=== PATIENT | female | born 1955 | race Caucasian/White ===

== ENCOUNTER 2022-06-07 16:10 | Emergency (ER) | payer OTHER, SELFPAY ==
[2022-06-07 16:17] VITALS: BP 135/78; PULSE 90; RESP 20; TEMP 36.3; O2SAT 97; BMI 28.3
--- NOTE | 2022-06-07 16:51 | ED_ITS ---
HPI - General Adult General Chief complaint: Diarrhea Stated complaint: Diarhea for past 3 months, weakness, passing out Time Seen by Provider: 06/07/22 16:25 History of Present Illness HPI narrative: 66-year-old woman presenting to the emergency department on advice primary care provider does not feel she can wait through the weekend to be rehydrated I believe. Has had rather prolonged recovery following abdominal surgery which did include prolonged and complicated surgery with did involve some repair of hernias. Ultimately convalescing at transitional care facility. About 3 weeks into that she says she started to have diarrhea. This has been going on now about 3 months. She describes green watery stools 3-5 or more a day. Mucousy. No fever. Not noted whether not there is blood. She does have a good deal of abdominal pain. Sometimes relieve a little bit with stool. It is early afternoon and admittedly she has not had any bowel movement yet today. She has been treating herself with loperamide. Was trying to get that when she was in the transitional care as well but she reports that being restricted. Apparently roommate with some diarrheal symptoms but she maintains that she did not come in contact with anything. No other ill exposures. Not short of breath. Last week getting up from lying or seated position apparently did pass out. Was with daughter. Apparently did have a bump on her head. And injured her left upper arm. Has continued to be generally weak. Often in a wheelchair. She is noted to have made across our emergency department aided by walker. Looks like there is a diagnosis of irritable bowel. Related Data Home Medications Medication Instructions Recorded Confirmed albuterol 90 mcg/actuation aerosol 2 spray inhalation Q4-5H 10/02/21 06/07/22 inhaler cefuroxime axetil 500 mg tablet 500 mg PO BID 10/02/21 10/02/21 divalproex 500 mg tablet,delayed 500 mg PO HS 10/02/21 06/07/22 release fluticasone propionate 220 2 puff inhalation BID 10/02/21 06/07/22 mcg/actuation HFA aerosol inhaler loperamide 2 mg capsule 4 mg PO .Daily as needed PRN 10/02/21 06/07/22 meclizine 25 mg tablet 25 mg PO BID PRN 10/02/21 06/07/22 montelukast 10 mg tablet 10 mg PO .Bedtime 10/02/21 06/07/22 trazodone 50 mg tablet 50 mg PO .Bedtime as needed PRN 10/02/21 06/07/22 venlafaxine 150 mg 150 mg PO DAILY 10/02/21 06/07/22 capsule,extended release 24 hr venlafaxine 75 mg capsule,extended 75 mg PO DAILY 10/02/21 06/07/22 release 24 hr albuterol sulfate 90 mcg/actuation 1 puff inhalation Q4H PRN 06/07/22 06/07/22 aerosol inhaler cevimeline 30 mg capsule 1 cap PO BID 06/07/22 06/07/22 dextroamphetamine-amphetamine 10 1 tab PO DAILY 06/07/22 06/07/22 mg tablet dextroamphetamine-amphetamine ER 1 cap PO DAILY 06/07/22 06/07/22 10 mg 24hr capsule,extend release divalproex 125 mg capsule,delayed 500 mg PO QID 06/07/22 06/07/22 release sprinkle doxepin 10 mg capsule 10 mg PO QPM 06/07/22 06/07/22 gabapentin 400 mg capsule 400 mg PO 3XD 06/07/22 06/07/22 guanfacine 1 mg tablet 1 mg PO QPM 06/07/22 06/07/22 lorazepam 0.5 mg tablet 0.5 mg PO DAILY PRN 06/07/22 06/07/22 trazodone 150 mg tablet 75 mg PO QPM 06/07/22 06/07/22 Allergies Allergy/AdvReac Type Severity Reaction Status Date / Time nitrofurantoin Allergy Unknown Verified 10/08/21 15:10 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 Allergy Severe Anaphylaxis Uncoded 10/08/21 15:10 CONTRAST Allergy Intermediate Rash, Uncoded 10/08/21 15:10 short of breath Sulfa Antibiotics Allergy Mild Rash Uncoded 10/08/21 15:10 Ioxaglate sodium Allergy Unknown Uncoded 10/08/21 15:10 ivp dye Allergy Unknown Unknown Uncoded 03/06/22 14:25 sulfa Allergy Unknown Unknown Uncoded 03/06/22 14:25 Review of Systems Status of ROS: Reports: 10 or more systems reviewed and unremarkable except as noted in History and below [facility] Medical History History of major depression History of prediabetes Surgical History History of bladder suspension procedure (2014) History of cholecystectomy (1983) History of loop recorder History of partial thyroidectomy (1999) Family History Mother Alcoholism Social History Narrative: Nonsmoker. Does not exercise. . 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 Smoking Status: Never smoker Do you use any of these nicotine containing products: None Second hand tobacco smoke exposure: No How often do you have a drink containing alcohol: never AUDIT-C Alcohol total score: 0 Non-prescribed substance use: denies use Exam Narrative: Exam Narrative: Pleasant. Of good energy. Has short dark hair dyed with splotches of [place] green. Breathing easily. Cranial nerves 2-12 intact. Abdomen is soft and while not terribly tender is mildly uncomfortable palpation in the mid abdomen. Normoactive bowel sounds are present present. Surgical scars are evident. Moving all extremities without difficulty. Trace lower extremity dependent edema. Lungs are clear. Heart with regular rate and rhythm. Skin is warm and dry without rash. Oropharynx is moist. Const: Vital Signs, click to edit/add: Vital Signs - 24 hr 06/07/22 16:17 06/07/22 17:25 06/07/22 19:17 Temperature 97.3 F L Pulse Rate [Pulse Oximeter] 90 70 Pulse Rate [orthos tatic lying] 66 Pulse Rate [orthos tatic sitting] 66 Pulse Rate [orthos tatic standing] 91 Respiratory Rate 20 16 Blood Pressure [Le ft Upper Arm] 135/78 125/64 Blood Pressure [or thostatic lying Le ft Arm] 122/73 Blood Pressure [or thostatic sitting] 111/77 Blood Pressure [or thostatic standing ] 101/77 Pulse Oximetry 97 98 Oxygen Delivery Me thod Room Air Room Air Documenting provider has reviewed patient's vital signs: yes Course Vital Signs Vital signs: Initial Vital Signs Temperature 97.3 F L 06/07/22 16:17 Temperature Source Temporal Artery Scan 06/07/22 16:17 Pulse Rate 90 06/07/22 16:17 Respiratory Rate 20 06/07/22 16:17 Blood Pressure 135/78 06/07/22 16:17 Blood Pressure Mean 97 06/07/22 16:17 Pulse Oximetry 97 06/07/22 16:17 Oxygen Delivery Method 06/07/22 16:17 Vital Signs Temperature 97.3 F L 06/07/22 16:17 Pulse Rate 90 06/07/22 16:17 Respiratory Rate 20 06/07/22 16:17 Blood Pressure 135/78 06/07/22 16:17 Pulse Oximetry 97 06/07/22 16:17 Oxygen Delivery Method 06/07/22 16:17 Temperature 97.3 F L 06/07/22 16:17 Pulse Rate 66 06/07/22 19:17 Respiratory Rate 16 06/07/22 17:25 Blood Pressure 122/73 06/07/22 19:17 Pulse Oximetry 98 06/07/22 17:25 Oxygen Delivery Method 06/07/22 17:25 Medical Decision Making MDM Narrative Medical decision making narrative: Initiated on normal saline fluid bolus. Given Zofran for nausea. Certainly could be weak from infection/sepsis. Does not appear to be so and quite alert here. I think more the matter is fluid volume, dehydration. Will be doing labs and screening stool for C diff. Orthostatics are positive with a 30 point increase in pulse but pressures remain pretty steady. She reports feeling lightheaded. White count is normal. Labs generally reassuring. Urinalysis with trace ketones. 2 L of fluids. Anticipating departure shortly. Has not yet had a bowel movement in the emergency department. See patient discharged Lab Data Lab results reviewed: Yes I reviewed the patient's lab results Labs: Lab Results 06/07/22 06/07/22 06/07/22 Range/Units 17:03 17:03 17:05 WBC 5.87 (4.50-11.00) K/uL RBC 4.11 (4.00-5.20) m/uL Hgb 12.7 (12.0-16.0) gm/dL Hct 38.0 (33.0-51.0) % MCV 93 (80-100) fL MCH 31 (26-34) pg MCHC 33 (32-36) gm/dL RDW Coeff of Quirino 12.0 (11.5-15.5) % Plt Count 235 (140-440) K/uL Neut % (Auto) 61.8 (42.0-72.0) % Lymph % (Auto) 28.8 (20-44) % [place] % (Auto) 7.7 (0.0-11.0) % Eos % (Auto) 0.9 (0.0-7.0) % Baso % (Auto) 0.5 (0.0-3.0) % Neut # (Auto) 3.63 (1.7-7.0) K/uL Lymph # (Auto) 1.69 (0.90-2.90) K/uL [place] # (Auto) 0.50 (0.00-0.90) K/UL Eos # (Auto) 0.05 (0.00-0.50) K/uL Baso # (Auto) 0.03 (0.00-0.30) K/uL Sodium 137 (135-149) mmol/L Potassium 3.6 (3.6-5.1) mmol/L Chloride 102 (96-114) mmol/L Carbon Dioxide 29 (20-32) mmol/L BUN 15 (7-30) mg/dL Creatinine 0.7 (0.5-1.5) mg/dL Estimated Creat Clear 44.95 Estimated GFR 97 ml/min Glucose 91 (60-115) mg/dL Calcium 9.0 (8.4-10.6) mg/dL Total Bilirubin 0.7 (0.1-1.5) mg/dL Direct Bilirubin 0.1 (0.0-0.5) mg/dL AST 23 (12-35) U/L ALT 22 (4-35) U/L Alkaline Phosphatase 64 (40-150) U/L C-Reactive Protein 0.5 (0.5-1.0) mg/dL Total Protein 7.2 (6.0-8.3) g/dL Albumin 4.2 (3.3-5.0) g/dL Urine Color (Yellow) Urine Appearance (Clear) Urine pH (5.0-8.5) Ur Specific [place] (1.000-1.030) Urine Protein (Negative) Urine Glucose (UA) (Negative) Urine Ketones (Negative) Urine Blood (Negative) Urine Nitrite (Negative) Urine Bilirubin (Negative) Urine Urobilinogen (0.2-1.0) Ur Leukocyte Esterase (Negative) Urine RBC (0-2) Urine WBC (0-5) Ur Squamous Epith Cells (None-Few) Urine Bacteria (None) SARS-CoV-2 (PCR) Negative SARS-CoV-2 (Negative) 06/07/22 Range/Units 18:30 WBC (4.50-11.00) K/uL RBC (4.00-5.20) m/uL Hgb (12.0-16.0) gm/dL Hct (33.0-51.0) % MCV (80-100) fL MCH (26-34) pg MCHC (32-36) gm/dL RDW Coeff of Quirino (11.5-15.5) % Plt Count (140-440) K/uL Neut % (Auto) (42.0-72.0) % Lymph % (Auto) (20-44) % [place] % (Auto) (0.0-11.0) % Eos % (Auto) (0.0-7.0) % Baso % (Auto) (0.0-3.0) % Neut # (Auto) (1.7-7.0) K/uL Lymph # (Auto) (0.90-2.90) K/uL [place] # (Auto) (0.00-0.90) K/UL Eos # (Auto) (0.00-0.50) K/uL Baso # (Auto) (0.00-0.30) K/uL Sodium (135-149) mmol/L Potassium (3.6-5.1) mmol/L Chloride (96-114) mmol/L Carbon Dioxide (20-32) mmol/L BUN (7-30) mg/dL Creatinine (0.5-1.5) mg/dL Estimated Creat Clear Estimated GFR ml/min Glucose (60-115) mg/dL Calcium (8.4-10.6) mg/dL Total Bilirubin (0.1-1.5) mg/dL Direct Bilirubin (0.0-0.5) mg/dL AST (12-35) U/L ALT (4-35) U/L Alkaline Phosphatase (40-150) U/L C-Reactive Protein (0.5-1.0) mg/dL Total Protein (6.0-8.3) g/dL Albumin (3.3-5.0) g/dL Urine Color Yellow (Yellow) Urine Appearance Clear (Clear) Urine pH 6.5 (5.0-8.5) Ur Specific [place] 1.025 (1.000-1.030) Urine Protein Negative (Negative) Urine Glucose (UA) Negative (Negative) Urine Ketones Trace A (Negative) Urine Blood Trace-lysed A (Negative) Urine Nitrite Negative (Negative) Urine Bilirubin Negative (Negative) Urine Urobilinogen 1.0 (0.2-1.0) Ur Leukocyte Esterase Trace A (Negative) Urine RBC 2-5 A (0-2) Urine WBC 2-5 (0-5) Ur Squamous Epith Cells Few (None-Few) Urine Bacteria None (None) SARS-CoV-2 (PCR) (Negative) Discharge Plan Discharge Clinical Impression: Diarrhea, Dehydration, Irritable bowel syndrome Patient Disposition: Home w/ Parent or Adult Condition: Improved Additional Instructions: Continue to focus on hydration. As long as you are not having fever or blood in your stool I think you could take the loperamide. You might need to add probiotics to your diet, admittedly of uncertain benefit, a couple of times daily for the next few weeks. Another option also of uncertain benefit could be the addition of digestive enzymes like [employer]. However if you can produce a stool sample, feel free to bring it back to the emergency department. We anticipate testing for Clostridium difficile and running a general stool culture. Otherwise follow-up with the primary care provider sometime next week to make further plans. Return for worsening lightheadedness, intractable vomiting, associated fever, worsening weakness. A urine culture should be pending here. Negin from [employer]. Prescriptions: No Action albuterol 90 mcg/actuation aerosol 2 spray inhalation Q4-5H fluticasone propionate 220 mcg/actuation HFA aerosol inhaler 2 puff inhalation BID montelukast 10 mg tablet 10 mg PO .Bedtime divalproex 500 mg tablet,delayed release (DR/EC) 500 mg PO HS trazodone 50 mg tablet 50 mg PO .Bedtime as needed PRN loperamide 2 mg capsule 4 mg PO .Daily as needed PRN cefuroxime axetil 500 mg tablet 500 mg PO BID meclizine 25 mg tablet 25 mg PO BID PRN venlafaxine 150 mg capsule,extended release 24hr 150 mg PO DAILY Rx Instructions: Takes 225mg daily venlafaxine 75 mg capsule,extended release 24hr 75 mg PO DAILY Rx Instructions: Take 75mg tab in addition to 150mg tab by mouth daily. albuterol sulfate 90 mcg/actuation HFA aerosol inhaler 1 puff INHALATION Q4H PRN Label Comments: PLEASE SEE ATTACHED FOR DETAILED DIRECTIONS dextroamphetamine-amphetamine 10 mg tablet 1 tab PO DAILY gabapentin 400 mg capsule 400 mg PO 3XD doxepin 10 mg capsule 10 mg PO QPM lorazepam 0.5 mg tablet 0.5 mg PO DAILY PRN trazodone 150 mg tablet 75 mg PO QPM cevimeline 30 mg capsule 1 cap PO BID guanfacine 1 mg tablet 1 mg PO QPM dextroamphetamine-amphetamine 10 mg capsule,extended release 24hr 1 cap PO DAILY divalproex 125 mg capsule, delayed rel sprinkle 500 mg PO QID Follow Up/Referrals: Betina Aguilar PA [Primary Care Provider] - Stand Alone Forms: [facility] Info Instructions
[2022-06-07 17:15] LABS: Basophils Absolute Auto 0.03 K/uL (0.00-0.30); Basophils Percent Auto 0.5 % (0.0-3.0); Eosinophils Absolute Auto 0.05 K/uL (0.00-0.50); Eosinophils Percent Auto 0.9 % (0.0-7.0); Hemoglobin* 12.7 gm/dL (12.0-16.0); Immature Granulocytes Abs Auto 0.02 K/uL (0.00-0.30); Immature Granulocytes Pct Auto 0.3 %; Lymphocytes Absolute Auto 1.69 K/uL (0.90-2.90); Lymphocytes Percent Auto 28.8 % (20-44); Mean Corpuscular HGB Conc 33 gm/dL (32-36); Mean Corpuscular Hemoglobin 31 pg (26-34); Mean Corpuscular Volume 93 fL (80-100); Monocytes Percent Auto 7.7 % (0.0-11.0); Neutrophils Absolute Auto 3.63 K/uL (1.7-7.0); Neutrophils Percent Auto 61.8 % (42.0-72.0); Platelet Count* 235 K/uL (140-440); Red Blood Count 4.11 m/uL (4.00-5.20); Slide Review Reflex No; White Blood Count* 5.87 K/uL (4.50-11.00)
[2022-06-07] MEDS: 0.9 % SODIUM CHLORIDE 1000 ml 1,000 ML IV ×2 (17:23→19:25)
[2022-06-07] MEDS: ONDANSETRON 2 MG/ML inj 4 MG IVP (17:23)
[2022-06-07 17:25] VITALS: BP 125/64; PULSE 70; RESP 16; O2SAT 98
[2022-06-07 17:37] LABS: Albumin* 4.2 g/dL (3.3-5.0); Chloride* 102 mmol/L (96-114); Sodium* 137 mmol/L (135-149)
[2022-06-07 17:38] LABS: Potassium* 3.6 mmol/L (3.6-5.1)
[2022-06-07 17:40] LABS: Bilirubin Direct* 0.1 mg/dL (0.0-0.5); Bilirubin Total* 0.7 mg/dL (0.1-1.5); Carbon Dioxide* 29 mmol/L (20-32); Creatinine* 0.7 mg/dL (0.5-1.5); Est. Creatinine Clearance* 44.95; Estimated Glomerular Filt Rate 97 ml/min
[2022-06-07 17:41] LABS: Alanine Aminotransferase* 22 U/L (4-35); Alkaline Phosphatase* 64 U/L (40-150); Aspartate Amino Transferase* 23 U/L (12-35); Blood Urea Nitrogen* 15 mg/dL (7-30); Glucose* 91 mg/dL (60-115); Total Protein* 7.2 g/dL (6.0-8.3)
[2022-06-07 17:43] LABS: C Reactive Protein* 0.5 mg/dL (0.5-1.0)
[2022-06-07 18:01] LABS: SARS PCR* Negative SARS-CoV-2 (Negative)
[2022-06-07 18:44] LABS: Appearance Urine Clear (Clear); Bilirubin Urine Negative (Negative); Blood Urine Trace-lysed (Negative); Color Urine Yellow (Yellow); Glucose Urine Negative (Negative); Ketones Urine Trace (Negative); Leukocyte Esterase Urine Trace (Negative); Nitrite Urine Negative (Negative); Protein Urine Negative (Negative); Specific Gravity Urine 1.025 (1.000-1.030); pH Urine 6.5 (5.0-8.5)
[2022-06-07 18:59] LABS: Squamous Epithelial Cell Urine Few (None-Few)
[2022-06-07 19:17] VITALS: BP 101/77; BP 111/77; BP 122/73; PULSE 66; PULSE 91
== END 2022-06-07 20:33 | disposition home or self-care (01) ==
PROVIDERS: Emergency Provider Family Medicine; PCP Physician Assistant
DX: E86.0 Dehydration (principal); K58.0 Irritable bowel syndrome with diarrhea
CPT/HCPCS: 36415; 80048; 80076; 81001; 85025; 86140; 87045; 87046; 87427; 87493; 87635; 96374; 99283; 99284; J2405; J7030

== ENCOUNTER 2022-08-09 11:49 | Outpatient (CLI) | payer OTHER, SELFPAY | END 2022-08-09 11:50 | disposition home or self-care (01) | LOC: AMB 08-12 10:36 | PROVIDERS: PCP Family Medicine; Visit Provider Emergency Medicine Emergency Medical Services | DX: S79.911A Unspecified injury of right hip, initial encounter (principal); W18.30XA Fall on same level, unspecified, initial encounter; Y92.481 Parking lot as the place of occurrence of the external cause | CPT/HCPCS: A0425; A0427 ==

== ENCOUNTER 2022-08-09 12:14 | Inpatient (IN) | payer OTHER, SELFPAY ==
[2022-08-09] VITALS (20 sets, daily range): BP systolic 78–105; BP diastolic 45–70; PULSE 76–92; RESP 14–18; TEMP 36.2–37; O2SAT 91–99; BMI 27.4
--- NOTE | 2022-08-09 12:36 | CRLHL7_ITS ---
For Patients: As a result of the Cures Act, medical imaging exams and procedure reports are released immediately into your electronic medical record. You may view this report before your referring provider. If you have questions, please contact your health care provider. Indication: Fall, right hip pain Technique: Three views Comparison: None Findings/Impression: Bones: No displaced fracture, however angulation at the right femoral neck is noted with some sclerosis in the subcapital region. Appearance suggests a nondisplaced impacted femoral neck fracture. Joint spaces: No dislocation. Soft tissues: Unremarkable. Dictated by Doe Faulkner MD @ 08/09/2022 1:17:24 PM (Electronically Signed)
--- NOTE | 2022-08-09 12:39 | ED.GENADULT ---
HPI - General Adult General Date Seen: 08/09/22 Chief complaint: Extremity Pain/Injury, Lower Stated complaint: Fall Time Seen by Provider: 08/09/22 12:29 Source: patient and EMS Mode of arrival: EMS Limitations: no limitations History of Present Illness HPI narrative: Patient is a 67-year-old woman who presents after a fall with right hip pain. She is brought in by EMS. She received fentanyl EN route, did have a low blood pressure reading of 80 systolic after that. Presents with a blood pressure of 105 systolic. She has a fairly long history of dizziness and falls, review of her records shows that she has been seen for this previously. She tells me she does not generally go out very much, she had surgery for hiatal hernia repair and umbilical hernia repair last fall, then required 45 day skilled nursing stay because she was not able to walk, and now she says she is basically home with home health to help care for her. She was out with her daughter in [place], she says that she usually uses a walker but she did not have it with her, she turned quickly and then fell landing on her right side. She says she was not able to get up due to pain in her right hip. EMS was called. She denies hitting her head, no loss of consciousness due to head injury. She is unclear whether not she lost consciousness at the time of her fall or not. Her leg feels numb and tingly from the knee down. She does not have any pain in the knee or ankle however. Does not take any blood thinners. Other medications reviewed. Other medical history includes PTSD, anxiety, a functional neurological symptom disorder, borderline personality disorder, sleep apnea, obesity. She has had chronic diarrhea for the past 3 months which she says has been worked up without a clear etiology. No bloody stools. No black stools. No vomiting. Related Data Home Medications Medication Instructions Recorded Confirmed divalproex 500 mg tablet,delayed 500 mg PO HS 10/02/21 08/09/22 release fluticasone propionate 220 2 puff inhalation BID 10/02/21 08/09/22 mcg/actuation HFA aerosol inhaler loperamide 2 mg capsule 4 mg PO QID PRN 10/02/21 08/09/22 meclizine 25 mg tablet 25 mg PO BID PRN 10/02/21 08/09/22 montelukast 10 mg tablet 10 mg PO HS 10/02/21 08/09/22 venlafaxine 150 mg 150 mg PO DAILY 10/02/21 08/09/22 capsule,extended release 24 hr venlafaxine 75 mg capsule,extended 75 mg PO DAILY 10/02/21 08/09/22 release 24 hr albuterol sulfate 90 mcg/actuation 1 puff inhalation Q4H PRN 06/07/22 08/09/22 aerosol inhaler cevimeline 30 mg capsule 1 cap PO BID 06/07/22 08/09/22 dextroamphetamine-amphetamine 10 1 tab PO DAILY 06/07/22 08/09/22 mg tablet dextroamphetamine-amphetamine ER 1 cap PO DAILY 06/07/22 08/09/22 10 mg 24hr capsule,extend release divalproex 125 mg capsule,delayed 500 mg PO BID 06/07/22 08/09/22 release sprinkle guanfacine 1 mg tablet 1 mg PO QPM 06/07/22 08/09/22 lorazepam 0.5 mg tablet 0.5 mg PO DAILY PRN 06/07/22 08/09/22 trazodone 150 mg tablet 75 mg PO QPM 06/07/22 08/09/22 omeprazole 40 mg capsule,delayed 40 mg PO DAILY 08/09/22 08/09/22 release Allergies Allergy/AdvReac Type Severity Reaction Status Date / Time nitrofurantoin Allergy Unknown Verified 10/08/21 15:10 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 Severe Anaphylaxis Uncoded 10/08/21 15:10 CONTRAST Allergy Intermediate Rash, Uncoded 10/08/21 15:10 short of breath Sulfa Antibiotics Allergy Mild Rash Uncoded 10/08/21 15:10 Ioxaglate sodium Allergy Unknown Uncoded 10/08/21 15:10 ivp dye Allergy Unknown Unknown Uncoded 03/06/22 14:25 sulfa Allergy Unknown Unknown Uncoded 03/06/22 14:25 Review of Systems Status of ROS: Reports: 10 or more systems reviewed and unremarkable except as noted in History and below [facility] Medical History History of prediabetes ?Z87.898 - Personal history of other specified conditions (ICD-10) History of major depression ?Z86.59 - Personal history of other mental and behavioral disorders (ICD-10) Surgical History History of loop recorder ?Z98.890 - Other specified postprocedural states (ICD-10) History of partial thyroidectomy (1999) ?E89.0 - Postprocedural hypothyroidism (ICD-10) History of cholecystectomy (1983) ?Z90.49 - Acquired absence of other specified parts of digestive tract (ICD-10) History of bladder suspension procedure (2014) ?Z98.890 - Other specified postprocedural states (ICD-10) ?Z87.448 - Personal history of other diseases of urinary system (ICD-10) Family History Mother Alcoholism Social History Narrative: Nonsmoker. Does not exercise. . 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 Highest level of school completed/degree received: Master's degree Smoking Status: Never smoker Do you use any of these nicotine containing products: None Second hand tobacco smoke exposure: No How often do you have a drink containing alcohol: never AUDIT-C Alcohol total score: 0 Non-prescribed substance use: denies use Caffeine: No service: No Exam Const: Vital Signs, click to edit/add: Vital Signs - 24 hr 08/09/22 12:23 08/09/22 12:36 08/09/22 13:22 Temperature 97.1 F L Pulse Rate 78 Pulse Rate [Pulse Oximeter] 85 Respiratory Rate 14 Blood Pressure Blood Pressure [Ri ght Upper Arm] 105/61 Pulse Oximetry 98 98 99 Oxygen Delivery Me thod Room Air 08/09/22 13:30 08/09/22 13:31 08/09/22 13:45 Temperature Pulse Rate 78 78 81 Pulse Rate [Pulse Oximeter] Respiratory Rate Blood Pressure 96/70 Blood Pressure [Ri ght Upper Arm] Pulse Oximetry 96 94 94 Oxygen Delivery Me thod 08/09/22 14:00 08/09/22 14:02 08/09/22 14:15 Temperature Pulse Rate 85 84 86 Pulse Rate [Pulse Oximeter] Respiratory Rate Blood Pressure 97/56 L Blood Pressure [Ri ght Upper Arm] Pulse Oximetry 97 91 96 Oxygen Delivery Me thod 08/09/22 14:30 08/09/22 14:31 08/09/22 14:32 Temperature Pulse Rate 83 85 82 Pulse Rate [Pulse Oximeter] Respiratory Rate Blood Pressure 101/45 L Blood Pressure [Ri ght Upper Arm] Pulse Oximetry 94 97 97 Oxygen Delivery Me thod 08/09/22 14:45 08/09/22 15:00 Temperature Pulse Rate 81 87 Pulse Rate [Pulse Oximeter] Respiratory Rate Blood Pressure Blood Pressure [Ri t Upper Arm] Pulse Oximetry 93 99 Oxygen Delivery Me thod Course Course Hospital Course: Following initial evaluation, she had a 0.5 mg of Dilaudid and went over for x-rays of the right hip. I also ordered an EKG, CBC, metabolic panel, lactate, troponin, given fall, possible loss of consciousness, borderline low blood pressures. EKG my review showed a normal sinus rhythm, ventricular rate of 73 beats per minute. No acute ST segment changes. T-waves are normal. Blood pressures here remained in the low 100s. She was not tachycardic. X-rays of the right hip by my review showed no clear cortical abnormality on the lateral, but she does have angulation and a little cortical irregularity on the AP, and given her clinical picture I think this likely represents fracture. Final radiology report is as follows:Findings/Impression: Bones: No displaced fracture, however angulation at the right femoral neck is noted with some sclerosis in the subcapital region. Appearance suggests a nondisplaced impacted femoral neck fracture Patient had a smoothie at 9:00 a.m. but when I went in to talk with her about her results she was actually eating eddy. Therefore, surgery will be held off until tomorrow. Case was discussed with FERCHO Bravo, Orthopedics. She will be admitted to the hospital service. So far labs are mostly pending, hemoglobin is 10.3 down a couple g compared to May. This is normocytic, possibly in part related to her hip fracture. She does not give a history of other bleeding, though consideration could be given to stool guaiac. Other labs are unremarkable, troponin is pending as the point of care troponin was apparently not run. Will likely have to run a lab troponin. Vital Signs Vital signs: Initial Vital Signs Temperature 97.1 F L 08/09/22 12:23 Temperature Source Temporal Artery Scan 08/09/22 12:23 Pulse Rate 85 08/09/22 12:23 Respiratory Rate 14 08/09/22 12:23 Blood Pressure 105/61 08/09/22 12:23 Blood Pressure Mean 75 08/09/22 12:23 Pulse Oximetry 98 08/09/22 12:23 Oxygen Delivery Method Room Air 08/09/22 12:23 Vital Signs Temperature 97.1 F L 08/09/22 12:23 Pulse Rate 85 08/09/22 12:23 Respiratory Rate 14 08/09/22 12:23 Blood Pressure 105/61 08/09/22 12:23 Pulse Oximetry 98 08/09/22 12:23 Oxygen Delivery Method Room Air 08/09/22 12:23 Temperature 97.8 F 08/09/22 16:17 Pulse Rate 92 08/09/22 16:17 Respiratory Rate 18 08/09/22 16:17 Blood Pressure 101/60 08/09/22 16:17 Pulse Oximetry 94 08/09/22 16:17 Oxygen Delivery Method Room Air 08/09/22 16:17 Medical Decision Making Lab Data Labs: Lab Results 08/09/22 08/09/22 Range/Units 13:30 13:32 WBC 6.32 (4.50-11.00) K/uL RBC 3.30 L (4.00-5.20) m/uL Hgb 10.3 L (12.0-16.0) gm/dL Hct 31.7 L (33.0-51.0) % MCV 96 (80-100) fL MCH 31 (26-34) pg MCHC 33 (32-36) gm/dL RDW Coeff of Quirino 12.2 (11.5-15.5) % Plt Count 198 (140-440) K/uL Neut % (Auto) 66.3 (42.0-72.0) % Lymph % (Auto) 25.0 (20-44) % [place] % (Auto) 7.1 (0.0-11.0) % Eos % (Auto) 0.8 (0.0-7.0) % Baso % (Auto) 0.3 (0.0-3.0) % Neut # (Auto) 4.19 (1.7-7.0) K/uL Lymph # (Auto) 1.58 (0.90-2.90) K/uL [place] # (Auto) 0.40 (0.00-0.90) K/UL Eos # (Auto) 0.05 (0.00-0.50) K/uL Baso # (Auto) 0.02 (0.00-0.30) K/uL Sodium 137 (135-149) mmol/L Potassium 4.3 (3.6-5.1) mmol/L Chloride 106 (96-114) mmol/L Carbon Dioxide 28 (20-32) mmol/L BUN 15 (7-30) mg/dL Creatinine 0.6 (0.5-1.5) mg/dL Estimated Creat Clear 44.36 Estimated GFR 100 ml/min Glucose 82 (60-115) mg/dL Lactate 0.9 (0.5-1.9) mmol/L Calcium 7.8 L (8.4-10.6) mg/dL Total Bilirubin 0.4 (0.1-1.5) mg/dL Direct Bilirubin 0.1 (0.0-0.5) mg/dL AST 19 (12-35) U/L ALT 16 (4-35) U/L Alkaline Phosphatase 49 (40-150) U/L Troponin I < 0.01 L (0.01-0.04) ng/mL C-Reactive Protein 0.6 (0.5-1.0) mg/dL Total Protein 5.3 L (6.0-8.3) g/dL Albumin 3.0 L (3.3-5.0) g/dL Discharge Plan Discharge Patient Disposition: Admitted As Inpatient
[2022-08-09] MEDS: 0.9 % SODIUM CHLORIDE 1000 ml 1,000 ML IV (13:07)
[2022-08-09] MEDS: HYDROmorphone 0.5 mg/0.5 ml inj IVP ×5 (13:07→22:53)
[2022-08-09 13:44] LABS: Lactate* 0.9 mmol/L (0.5-1.9)
[2022-08-09 13:45] LABS: Basophils Absolute Auto 0.02 K/uL (0.00-0.30); Basophils Percent Auto 0.3 % (0.0-3.0); Eosinophils Absolute Auto 0.05 K/uL (0.00-0.50); Eosinophils Percent Auto 0.8 % (0.0-7.0); Hematocrit 31.7 % (33.0-51.0); Hemoglobin* 10.3 gm/dL (12.0-16.0); Immature Granulocytes Abs Auto 0.03 K/uL (0.00-0.30); Immature Granulocytes Pct Auto 0.5 %; Lymphocytes Absolute Auto 1.58 K/uL (0.90-2.90); Mean Corpuscular HGB Conc 33 gm/dL (32-36); Mean Corpuscular Hemoglobin 31 pg (26-34); Mean Corpuscular Volume 96 fL (80-100); Monocytes Percent Auto 7.1 % (0.0-11.0); Neutrophils Absolute Auto 4.19 K/uL (1.7-7.0); Neutrophils Percent Auto 66.3 % (42.0-72.0); Platelet Count* 198 K/uL (140-440); RDW Coefficient of Variation % 12.2 % (11.5-15.5); White Blood Count* 6.32 K/uL (4.50-11.00)
[2022-08-09 13:52] LABS: Slide Review Reflex No
[2022-08-09 13:57] LABS: Chloride* 106 mmol/L (96-114)
[2022-08-09 13:58] LABS: Potassium* 4.3 mmol/L (3.6-5.1); Sodium* 137 mmol/L (135-149)
[2022-08-09 14:00] LABS: Alkaline Phosphatase* 49 U/L (40-150); Aspartate Amino Transferase* 19 U/L (12-35); Bilirubin Direct* 0.1 mg/dL (0.0-0.5); Bilirubin Total* 0.4 mg/dL (0.1-1.5); Carbon Dioxide* 28 mmol/L (20-32); Creatinine* 0.6 mg/dL (0.5-1.5); Est. Creatinine Clearance* 44.36; Estimated Glomerular Filt Rate 100 ml/min; Total Protein* 5.3 g/dL (6.0-8.3)
[2022-08-09 14:01] LABS: Alanine Aminotransferase* 16 U/L (4-35); Blood Urea Nitrogen* 15 mg/dL (7-30); Calcium* 7.8 mg/dL (8.4-10.6); Glucose* 82 mg/dL (60-115)
[2022-08-09 14:03] LABS: C Reactive Protein* 0.6 mg/dL (0.5-1.0)
[2022-08-09 15:01] LABS: Troponin I* < 0.01 ng/mL (0.01-0.04)
--- NOTE | 2022-08-09 15:01 | ED.NURSE ---
Dr. Jordan gave verbal order to give another 0.5mg Dilaudid. This was given at 1501 before entered into MAR
--- NOTE | 2022-08-09 15:05 | CRLHL7_ITS ---
For Patients: As a result of the Cures Act, medical imaging exams and procedure reports are released immediately into your electronic medical record. You may view this report before your referring provider. If you have questions, please contact your health care provider. Indication: Fall, injury and pain Technique: Two views Comparison: Right hip 08/09/2022 Findings/Impression: Two views of the distal right femur show no evidence of fracture. No right knee effusion or evidence of dislocation. Dictated by Doe Faulkner MD @ 08/09/2022 4:24:29 PM (Electronically Signed)
--- NOTE | 2022-08-09 15:06 | CRLHL7_ITS ---
For Patients: As a result of the Century Cures Act, medical imaging exams and procedure reports are released immediately into your electronic medical record. You may view this report before your referring provider. If you have questions, please contact your health care provider. Indication: Fall Technique: Chest 1 view Comparison: Chest x-ray 02/27/2017 Findings/Impression: Cardiovascular and mediastinum: Normal heart size with mild aortic tortuosity. Loop recorder overlies the left lung. Lungs and pleural space: Lungs are clear. No sign of infiltrate or mass. No sign of pleural effusion. No pneumothorax. Bones and soft tissues: No acute findings. Dictated by Doe Faulkner MD @ 08/09/2022 4:33:33 PM (Electronically Signed)
[2022-08-09] MEDS: LORazepam 0.5 MG TABLET PO (16:10)
--- NOTE | 2022-08-09 18:01 | P.IMHP_ITS ---
Hospitalist- H&P: HPI History of Present Illness Date Seen: 08/09/22 Chief complaint: Fainted Narrative: Sophie Leon is a 67 year old female With chronic disabilities brought to the emergency room after a fall with right hip injury. patient was downtown leaving her car to walk when she fell. She landed on her right hip and had pain. She was in the middle of the street. her hip was too painful to move or to stand up. Her daughter attempted to help her to the side of the street . With the help of others they were able to get her out of the middle of the street. It is uncertain if there was loss of consciousness. Patient thinks that she may have blacked out very briefly. Her daughter thinks that if she was unconscious it was less than one second. patient normally walks with a walker due to weakness and poor balance. At the time of the fall she did not have her walker. She did not hit her head. She felt well before the fall. She has had no new recent health problems. Other than her right hip and thigh she has no other pain. She does have a previous history of falls. She is primarily homebound. She does walk with a walker. She is getting home physical therapy. She also has home health nurse visits and home health aides come to help regularly. the cause of her falls, weakness, disability is uncertain. She does not have a history of neuro- muscular disorder. She has significant mental health problems including PTSD, anxiety, functional neurologic disorder (previously conversion disorder), borderline personality disorder. she also has irritable bowel syndrome, chronic nonbloody diarrhea, obstructive sleep apnea for which he uses CPAP, o besity And asthma. She reports no recent breathing problems. She had a hiatal hernia repair last December. Postoperatively she was in the hospital for a week and deemed to be too weak to go home so [facility] [place] [facility] before returning home. Review of Systems Narrative: She reports no new problems other than her right hip injury. Chronic disabilities as above. She continues to have chronic greenish nonbloody diarrhea. No dyspnea, no fever. She has been eating normally. No urinary problems. No bleeding or clotting problems. [facility] Medical History (Updated 08/09/22 @ 18:21 by Zohaib Romano MD) Physical deconditioning ?R53.81 - Other malaise (ICD-10) Chronic diarrhea ?K52.9 - Noninfective gastroenteritis and colitis, unspecified (ICD-10) Anxiety ?F41.9 - Anxiety disorder, unspecified (ICD-10) History of prediabetes ?Z87.898 - Personal history of other specified conditions (ICD-10) History of major depression ?Z86.59 - Personal history of other mental and behavioral disorders (ICD-10) Surgical History History of loop recorder ?Z98.890 - Other specified postprocedural states (ICD-10) History of partial thyroidectomy (1999) ?E89.0 - Postprocedural hypothyroidism (ICD-10) History of cholecystectomy (1983) ?Z90.49 - Acquired absence of other specified parts of digestive tract (ICD- 10) History of bladder suspension procedure (2014) ?Z98.890 - Other specified postprocedural states (ICD-10) ?Z87.448 - Personal history of other diseases of urinary system (ICD-10) Family History Mother Alcoholism Social History (Updated 08/09/22 @ 18:15 by Zohaib Romano MD) Narrative: Nonsmoker. Does not exercise. . 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 5 adult children. She lives with her daughter who has mental disability-?Autism Highest level of school completed/degree received: Master's degree Smoking Status: Never smoker Do you use any of these nicotine containing products: None Second hand tobacco smoke exposure: No How often do you have a drink containing alcohol: never AUDIT-C Alcohol total score: 0 Non-prescribed substance use: denies use Caffeine: No service: No Meds Home Medications and Allergies Home Medications Medication Instructions Recorded Confirmed Type divalproex 500 mg tablet,delayed 500 mg PO HS 10/02/21 08/09/22 History release fluticasone propionate 220 2 puff inhalation BID 10/02/21 08/09/22 History mcg/actuation HFA aerosol inhaler loperamide 2 mg capsule 4 mg PO QID PRN 10/02/21 08/09/22 History meclizine 25 mg tablet 25 mg PO BID PRN 10/02/21 08/09/22 History montelukast 10 mg tablet 10 mg PO HS 10/02/21 08/09/22 History venlafaxine 150 mg 150 mg PO DAILY 10/02/21 08/09/22 History capsule,extended release 24 hr venlafaxine 75 mg capsule,extended 75 mg PO DAILY 10/02/21 08/09/22 History release 24 hr albuterol sulfate 90 mcg/actuation 1 puff inhalation Q4H PRN 06/07/22 08/09/22 History aerosol inhaler cevimeline 30 mg capsule 1 cap PO BID 06/07/22 08/09/22 History dextroamphetamine-amphetamine 10 1 tab PO DAILY 06/07/22 08/09/22 History mg tablet dextroamphetamine-amphetamine ER 1 cap PO DAILY 06/07/22 08/09/22 History 10 mg 24hr capsule,extend release divalproex 125 mg capsule,delayed 500 mg PO BID 06/07/22 08/09/22 History release sprinkle guanfacine 1 mg tablet 1 mg PO QPM 06/07/22 08/09/22 History lorazepam 0.5 mg tablet 0.5 mg PO DAILY PRN 06/07/22 08/09/22 History trazodone 150 mg tablet 75 mg PO QPM 06/07/22 08/09/22 History omeprazole 40 mg capsule,delayed 40 mg PO DAILY 08/09/22 08/09/22 History release Allergies Allergy/AdvReac Type Severity Reaction Status Date / Time nitrofurantoin Allergy Unknown Verified 10/08/21 15:10 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 She gives her own history. She struggles to recall her medications. Head is atraumatic normocephalic. Eyes are normal. Extraocular movements are full. Oropharynx is normal. No facial asymmetry. Neck is supple without mass or adenopathy. Respirations are clear to auscultation. Cardiovascular: S1, S2, regular rate and rhythm. No murmur gallop or rub. Abdomen: Bowel sounds active. Abdomen is soft without tenderness or mass. External genitalia normal. Inspection of her back is normal. No obvious trauma. inspection of all 4 extremities show no apparent trauma or deformity. She has intact pedal pulses and moves her feet and ankles normally. Palpation around her right hip and right thigh are quite tender without obvious deformity bruising or swelling. Const: Vital Signs, click to edit/add: Vital Signs - 24 hr 08/09/22 12:23 08/09/22 12:36 08/09/22 13:22 Temperature 97.1 F L Pulse Rate 78 Pulse Rate [Pulse Oximeter] 85 Pulse Rate [Right Brachial] Respiratory Rate 14 Blood Pressure Blood Pressure [Ri ght Arm] Blood Pressure [Ri ght Upper Arm] 105/61 Pulse Oximetry 98 98 [facility] 08/09/22 13:30 08/09/22 13:31 08/09/22 13:45 Temperature Pulse Rate 78 78 81 Pulse Rate [Pulse Oximeter] Pulse Rate [Right Brachial] Respiratory Rate Blood Pressure 96/70 Blood Pressure [Ri ght Arm] Blood Pressure [Ri ght Upper Arm] Pulse Oximetry 96 94 94 [facility] 08/09/22 14:00 08/09/22 14:02 08/09/22 14:15 Temperature Pulse Rate 85 84 86 Pulse Rate [Pulse Oximeter] Pulse Rate [Right Brachial] Respiratory Rate Blood Pressure 97/56 L Blood Pressure [Ri ght Arm] Blood Pressure [Ri ght Upper Arm] Pulse Oximetry 97 91 96 Oxygen Delivery [facility] 08/09/22 14:30 08/09/22 14:31 08/09/22 14:32 Temperature Pulse Rate 83 85 82 Pulse Rate [Pulse Oximeter] Pulse Rate [Right Brachial] Respiratory Rate Blood Pressure 101/45 L Blood Pressure [Ri ght Arm] Blood Pressure [Ri ght Upper Arm] Pulse Oximetry 94 97 97 Oxygen Delivery [facility] 08/09/22 14:45 08/09/22 15:00 08/09/22 15:01 Temperature Pulse Rate 81 87 84 Pulse Rate [Pulse Oximeter] Pulse Rate [Right Brachial] Respiratory Rate Blood Pressure 85/46 L Blood Pressure [Ri ght Arm] Blood Pressure [Ri ght Upper Arm] Pulse Oximetry 93 99 98 Oxygen Delivery Me thod 08/09/22 15:15 08/09/22 16:17 Temperature 97.8 F Pulse Rate 84 Pulse Rate [Pulse Oximeter] Pulse Rate [Right Brachial] 92 Respiratory Rate 18 Blood Pressure Blood Pressure [Ri ght Arm] 101/60 Blood Pressure [Ri ght Upper Arm] Pulse Oximetry 95 94 Oxygen Delivery Me thod Room Air Documenting provider has reviewed patient's vital signs: yes Hospitalist - H&P: Result Labs Labs: Short CBC 08/09/22 Range/Units 13:32 WBC 6.32 (4.50-11.00) K/uL Hgb 10.3 L (12.0-16.0) gm/dL Hct 31.7 L (33.0-51.0) % Plt Count 198 (140-440) K/uL BMP 08/09/22 13:32 Sodium 137 Potassium 4.3 Chloride 106 Carbon Dioxide 28 BUN 15 Creatinine 0.6 Glucose 82 Calcium 7.8 L Cardiac Enzymes 08/09/22 Range/Units 13:32 Troponin I < 0.01 L (0.01-0.04) ng/mL Liver Function 08/09/22 Range/Units 13:32 Total Bilirubin 0.4 (0.1-1.5) mg/dL Direct Bilirubin 0.1 (0.0-0.5) mg/dL AST 19 (12-35) U/L ALT 16 (4-35) U/L Alkaline Phosphatase 49 (40-150) U/L Albumin 3.0 L (3.3-5.0) g/dL Imaging Right hip: Radiologist's impression: Indication: Fall, right hip pain Technique: Three views Comparison: None Findings/Impression: Bones: No displaced fracture, however angulation at the right femoral neck is noted with some sclerosis in the subcapital region. Appearance suggests a nondisplaced impacted femoral neck fracture. Joint spaces: No dislocation. Soft tissues: Unremarkable. chest x-ray shows no trauma and no acute infiltrate. Right femur: no obvious fracture Assessment and Plan Assessment and plan (1) Physical deconditioning: Problem comment: sedentary lifestyle. Uses a walker. Getting home physical therapy. [facility] after hernia surgery in December 2021. Status: Acute (2) Closed fracture of neck of right femur: Problem comment: 08/09/2022. Surgery planned for tomorrow morning Status: Acute (3) Chronic diarrhea: Problem comment: Longstanding chronic diarrhea. Nonbloody. Outpatient has had multiple normal stool studies. Recent flexible sigmoidoscopy with normal findings and biopsies June 2022 Status: Acute (4) Functional neurological symptom disorder with mixed symptoms: Problem comment: Diplopia, falls, vertigo, blurry vision, tremor, numbness, tingling, speech difficulties. See Psychiatry records from [facility], She sees Dr. Vasquez, neuropsychology, at [facility]. She also sees Dr. Kory Mccloud, Neurology at [facility], and Dr Inés MD psychiatry Status: Acute (5) Anxiety: Status: Acute Plan patient is admitted for surgery. Given pre-existing significant disabilities will likely need [facility] facility for [facility]. Total time spent today is 75 minutes, 50 minutes in coordination of care discussing with patient and other providers management of hip fracture in the context of chronic disability.
[2022-08-09] MEDS: TRAZODONE HCL 50 MG TABLET 75 MG PO (19:43)
[2022-08-09] MEDS: DIVALPROEX SODIUM 125 MG CAP.DR.SPR 375 MG PO (19:45)
[2022-08-09] MEDS: MONTELUKAST 10 MG TABLET PO (19:45)
[2022-08-09] MEDS: SODIUM CHLORIDE 0.9 % (FLUSH) 10 ML SYRINGE 5 ML IVF (19:49)
--- NOTE | 2022-08-09 19:49 | PC.NURSE ---
shift note: pt to floor via bed @ 1600. Pt a&o x3. pt rating Rt hip pain 12/01. PP+ bilat. Rt foot warm to touch. cap refill <3sec. pt medicated with ativan per d.o. Pt tolerating regular diet. LS clr. AP regular. Hartley placed @ 1650 after pt medicated with 0.5mg dilaudid IV. IV to rt wrist patent with flush
[2022-08-09] MEDS: LACTATED RINGERS 1000 ML 1,000 ML 75 ML IV (23:46)
[2022-08-09] MEDS: LACTATED RINGERS 500 ML 500 ML IV (23:46)
[2022-08-10] VITALS (65 sets, daily range): BP systolic 58–137; BP diastolic 30–104; PULSE 62–88; RESP 12–20; TEMP 36.4–37.2; O2SAT 92–100
[2022-08-10] MEDS: LACTATED RINGERS 1000 ML 1,000 ML 125 ML IV ×2 (01:22→09:59)
[2022-08-10] MEDS: HYDROmorphone 0.5 mg/0.5 ml inj IVP ×5 (02:11→18:33)
[2022-08-10 06:55] LABS: Basophils Absolute Auto 0.03 K/uL (0.00-0.30); Basophils Percent Auto 0.4 % (0.0-3.0); Eosinophils Absolute Auto 0.16 K/uL (0.00-0.50); Eosinophils Percent Auto 2.4 % (0.0-7.0); Hematocrit 31.1 % (33.0-51.0); Hemoglobin* 10.1 gm/dL (12.0-16.0); Immature Granulocytes Abs Auto 0.05 K/uL (0.00-0.30); Immature Granulocytes Pct Auto 0.7 %; Lymphocytes Absolute Auto 1.71 K/uL (0.90-2.90); Lymphocytes Percent Auto 25.5 % (20-44); Mean Corpuscular HGB Conc 33 gm/dL (32-36); Mean Corpuscular Hemoglobin 31 pg (26-34); Mean Corpuscular Volume 96 fL (80-100); Monocytes Percent Auto 12.5 % (0.0-11.0); Neutrophils Absolute Auto 3.92 K/uL (1.7-7.0); Neutrophils Percent Auto 58.5 % (42.0-72.0); Platelet Count* 178 K/uL (140-440); RDW Coefficient of Variation % 12.4 % (11.5-15.5); Red Blood Count 3.24 m/uL (4.00-5.20); White Blood Count* 6.71 K/uL (4.50-11.00)
[2022-08-10 06:57] LABS: Slide Review Reflex No
[2022-08-10 07:05] LABS: Albumin* 3.2 g/dL (3.3-5.0); Chloride* 101 mmol/L (96-114); Potassium* 4.1 mmol/L (3.6-5.1); Sodium* 132 mmol/L (135-149)
[2022-08-10 07:07] LABS: Creatinine* 0.6 mg/dL (0.5-1.5); Est. Creatinine Clearance* 44.36; Estimated Glomerular Filt Rate 100 ml/min
[2022-08-10 07:08] LABS: Alanine Aminotransferase* 105 U/L (4-35); Alkaline Phosphatase* 66 U/L (40-150); Aspartate Amino Transferase* 103 U/L (12-35); Blood Urea Nitrogen* 13 mg/dL (7-30); Carbon Dioxide* 29 mmol/L (20-32); Glucose* 74 mg/dL (60-115); Total Protein* 5.7 g/dL (6.0-8.3)
[2022-08-10 07:09] LABS: Calcium* 8.3 mg/dL (8.4-10.6)
--- NOTE | 2022-08-10 07:55 | PC.NURSE ---
Pt on bedrest planning for surgical fix of right hip. NPO since midnight, Rates pain 5-10/10, Dilaudid per MAR given with relief. Hartley cath in place draining small amount of straw colored urine. Pt tolerates minimal repositioning, shifts body weight independently. Used home CPAP entire night.
[2022-08-10] MEDS: CEFAZOLIN 2 GM in 0.9 % SODIUM CHLORIDE Mini-bag 100 ML IVPB ×2 (09:25→17:53)
--- NOTE | 2022-08-10 10:20 | PM.ORCN ---
History of Present Illness [facility] Date Seen: 08/09/22 Chief complaint: Fainted Narrative: Sophie is a 67 year old female. She has a history of multiple chronic disabilities including PTSD, anxiety, functional neurologic disorder (previously conversion disorder), borderline personality disorder. Also, irritable bowel syndrome, chronic nonbloody diarrhea, obstructive sleep apnea he utilizing the CPAP, obesity, and asthma. On 08/09/2022, she reported a fall from standing height. She was crossing the street in downtown [place] when she fell. She thinks she may have blacked out. Does not recall tripping on anything. Noted it was difficult to try to move her stand up. She needed 2 minutes to help her get away from the middle of the street. An ambulance eventually was called and brought her to [facility]. X-rays were obtained revealed a right valgus impacted femoral neck fracture. She was admitted to the hospital and Orthopedics is consulted to assist with possible surgical management. She normally walks with a walker due to weakness and poor balance.? At the time of the fall she did not have her walker.? She did not hit her head. Elizabeth does have a previous history of falls.? She is primarily homebound.? She also has home health nurse visits and home health aides come to help regularly. the cause of her falls, weakness, disability is uncertain.? Review of Systems Narrative: No fevers or chills. No numbness or tingling in the left lower extremity reported. No history of blood clotting or bleeding disorders. She does report a history of diarrhea following a hiatal hernia and umbilical hernia repair from 12/2021. Denies chest pain or shortness of breath. Remaining history reviewed from the HPI. [facility] Medical History Physical deconditioning ?R53.81 - Other malaise (ICD-10) Chronic diarrhea ?K52.9 - Noninfective gastroenteritis and colitis, unspecified (ICD-10) Anxiety ?F41.9 - Anxiety disorder, unspecified (ICD-10) History of prediabetes ?Z87.898 - Personal history of other specified conditions (ICD-10) History of major depression ?Z86.59 - Personal history of other mental and behavioral disorders (ICD-10) Surgical History History of loop recorder ?Z98.890 - Other specified postprocedural states (ICD-10) History of partial thyroidectomy (1999) ?E89.0 - Postprocedural hypothyroidism (ICD-10) History of cholecystectomy (1983) ?Z90.49 - Acquired absence of other specified parts of digestive tract (ICD-10) History of bladder suspension procedure (2014) ?Z98.890 - Other specified postprocedural states (ICD-10) ?Z87.448 - Personal history of other diseases of urinary system (ICD-10) Family History Mother Alcoholism Social History Narrative: Nonsmoker. Does not exercise. . 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 She lives with her daughter who has mental disability-?Autism Highest level of school completed/degree received: Master's degree Smoking Status: Never smoker Do you use any of these nicotine containing products: None Second hand tobacco smoke exposure: No How often do you have a drink containing alcohol: never AUDIT-C Alcohol total score: 0 Non-prescribed substance use: denies use Caffeine: No service: No Meds Home Medications and Allergies Home Medications Medication Instructions Recorded Confirmed Type divalproex 500 mg tablet,delayed 500 mg PO HS 10/02/21 08/09/22 History release loperamide 2 mg capsule 4 mg PO QID PRN 10/02/21 08/09/22 History meclizine 25 mg tablet 25 mg PO BID PRN 10/02/21 08/09/22 History montelukast 10 mg tablet 10 mg PO HS 10/02/21 08/09/22 History albuterol sulfate 90 mcg/actuation 1 puff inhalation Q4H PRN 06/07/22 08/09/22 History aerosol inhaler cevimeline 30 mg capsule 1 cap PO BID 06/07/22 08/09/22 History dextroamphetamine-amphetamine ER 1 cap PO DAILY 06/07/22 08/09/22 History 10 mg 24hr capsule,extend release divalproex 125 mg capsule,delayed 500 mg PO BID 06/07/22 08/09/22 History release sprinkle guanfacine 1 mg tablet 1 mg PO QPM 06/07/22 08/09/22 History lorazepam 0.5 mg tablet 0.5 mg PO DAILY PRN 06/07/22 08/09/22 History trazodone 150 mg tablet 75 mg PO QPM 06/07/22 08/09/22 History omeprazole 40 mg capsule,delayed 40 mg PO DAILY 08/09/22 08/09/22 History release dicyclomine 10 mg capsule 10 mg PO Q6H PRN cramps 08/10/22 08/10/22 History ondansetron HCl 8 mg tablet 8 mg PO TID PRN 08/10/22 08/10/22 History sennosides 8.6 mg-docusate sodium 1 tab-cap PO BID PRN 08/10/22 08/10/22 History 50 mg tablet (Senna with Docusate Sodium) venlafaxine 150 mg 300 mg PO DAILY 08/10/22 08/10/22 History capsule,extended release 24 hr Allergies Allergy/AdvReac Type Severity Reaction Status Date / Time nitrofurantoin Allergy Unknown Verified 10/08/21 15:10 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 She is resting in the hospital bed supine during my interview. She is in no acute distress. She is cooperative with the exam. Right hip exam shows no lacerations, abrasions, or ecchymosis. No erythema. She is tender palpation over the right hip both anteriorly and laterally. She screams out in pain with any attempted range of motion of the right hip. She screams out in pain with motion of the contralateral left hip as well. When I asked what hurts, she states that such an action hurt her right hip. Neurologically intact in the superficial and deep peroneal as well as plantar distribution right lower extremity to light touch and motor function. 2+ DP and PT pulse. Strength and stability testing hip deferred. Gait and station also deferred. Const Vital Signs, click to edit/add: Vital Signs - 24 hr 08/09/22 12:23 08/09/22 12:36 08/09/22 13:22 Temperature 97.1 F L Pulse Rate 78 Pulse Rate [Pulse Oximeter] 85 Pulse Rate [Right Brachial] Respiratory Rate 14 Blood Pressure Blood Pressure [Right Arm] Blood Pressure [Right Upper Arm] 105/61 Pulse Oximetry 98 98 99 Oxygen Delivery Method Room Air 08/09/22 13:30 08/09/22 13:31 08/09/22 13:45 Temperature Pulse Rate 78 78 81 Pulse Rate [Pulse Oximeter] Pulse Rate [Right Brachial] Respiratory Rate Blood Pressure 96/70 Blood Pressure [Right Arm] Blood Pressure [Right Upper Arm] Pulse Oximetry 96 94 94 Oxygen Delivery Method 08/09/22 14:00 08/09/22 14:02 08/09/22 14:15 Temperature Pulse Rate 85 84 86 Pulse Rate [Pulse Oximeter] Pulse Rate [Right Brachial] Respiratory Rate Blood Pressure 97/56 L Blood Pressure [Right Arm] Blood Pressure [Right Upper Arm] Pulse Oximetry 97 91 96 Oxygen Delivery Method 08/09/22 14:30 08/09/22 14:31 08/09/22 14:32 Temperature Pulse Rate 83 85 82 Pulse Rate [Pulse Oximeter] Pulse Rate [Right Brachial] Respiratory Rate Blood Pressure 101/45 L Blood Pressure [Right Arm] Blood Pressure [Right Upper Arm] Pulse Oximetry 94 97 97 Oxygen Delivery Method 08/09/22 14:45 08/09/22 15:00 08/09/22 15:01 Temperature Pulse Rate 81 87 84 Pulse Rate [Pulse Oximeter] Pulse Rate [Right Brachial] Respiratory Rate Blood Pressure 85/46 L Blood Pressure [Right Arm] Blood Pressure [Right Upper Arm] Pulse Oximetry 93 99 98 Oxygen Delivery Method 08/09/22 15:15 08/09/22 16:17 08/09/22 17:25 Temperature 97.8 F Pulse Rate 84 Pulse Rate [Pulse Oximeter] Pulse Rate [Right Brachial] 92 Respiratory Rate 18 Blood Pressure Blood Pressure [Right Arm] 101/60 Blood Pressure [Right Upper Arm] Pulse Oximetry 95 94 94 Oxygen Delivery Method Room Air Room Air 08/09/22 19:25 08/09/22 23:00 08/10/22 00:19 Temperature 98.6 F 98.0 F Pulse Rate Pulse Rate [Pulse Oximeter] Pulse Rate [Right Brachial] 76 86 80 Respiratory Rate 18 16 Blood Pressure Blood Pressure [Right Arm] 94/52 L 78/50 L 82/49 L Blood Pressure [Right Upper Arm] Pulse Oximetry 98 95 Oxygen Delivery Method Room Air Room Air CPAP 08/10/22 02:00 08/10/22 03:00 08/10/22 08:19 Temperature 97.8 F 99 F Pulse Rate Pulse Rate [Pulse Oximeter] Pulse Rate [Right Brachial] 75 84 62 Respiratory Rate 16 18 Blood Pressure Blood Pressure [Right Arm] 88/54 L 94/82 90/48 L Blood Pressure [Right Upper Arm] Pulse Oximetry 93 99 Oxygen Delivery Method Room Air CPAP Room Air Results Labs Labs: Laboratory Results - last 48 hr 08/09/22 08/09/22 08/10/22 13:30 13:32 00:15 WBC 6.32 RBC 3.30 L Hgb 10.3 L 13.0 Hct 31.7 L MCV 96 MCH 31 MCHC 33 RDW Coeff of Quirino 12.2 Plt Count 198 Neut % (Auto) 66.3 Lymph % (Auto) 25.0 Davis % (Auto) 7.1 Eos % (Auto) 0.8 Baso % (Auto) 0.3 Neut # (Auto) 4.19 Lymph # (Auto) 1.58 Davis # (Auto) 0.40 Eos # (Auto) 0.05 Baso # (Auto) 0.02 Sodium 137 Potassium 4.3 Chloride 106 Carbon Dioxide 28 BUN 15 Creatinine 0.6 Estimated Creat Clear 44.36 Estimated GFR 100 Glucose 82 Lactate 0.9 Calcium 7.8 L Total Bilirubin 0.4 Direct Bilirubin 0.1 AST 19 ALT 16 Alkaline Phosphatase 49 Troponin I < 0.01 L C-Reactive Protein 0.6 Total Protein 5.3 L Albumin 3.0 L 08/10/22 05:40 WBC 6.71 RBC 3.24 L Hgb 10.1 L Hct 31.1 L MCV 96 MCH 31 MCHC 33 RDW Coeff of Quirino 12.4 Plt Count 178 Neut % (Auto) 58.5 Lymph % (Auto) 25.5 Davis % (Auto) 12.5 H Eos % (Auto) 2.4 Baso % (Auto) 0.4 Neut # (Auto) 3.92 Lymph # (Auto) 1.71 Davis # (Auto) 0.80 Eos # (Auto) 0.16 Baso # (Auto) 0.03 Sodium 132 L Potassium 4.1 Chloride 101 Carbon Dioxide 29 BUN 13 Creatinine 0.6 Estimated Creat Clear 44.36 Estimated GFR 100 Glucose 74 Lactate Calcium 8.3 L Total Bilirubin 1.0 Direct Bilirubin AST 103 H ALT 105 H Alkaline Phosphatase 66 Troponin I C-Reactive Protein Total Protein 5.7 L Albumin 3.2 L Diagnostic results Additional Comments: AP pelvis, AP and cross-table lateral view right hip as well as AP and lateral views right knee from [facility] dated 08/09/2022 were ordered by different provider and reviewed by me. This shows a right femoral neck fracture. Valgus impacted. Medial cortex appears to be intact. Well aligned on the lateral radiograph with minimal apex anterior angulation. No other acute fractures or avulsions appreciated down the length of the femur, contralateral left hip, or on the rest the pelvis. The visualized lower lumbar spine from L3-S1 appears to have decent disc height preservation and minimal osteophytosis. Assessment and Plan Assessment and plan (1) Physical deconditioning: Problem comment: sedentary lifestyle. Uses a walker. Getting home physical therapy. Was in a snf home for rehab for 45 days after hernia surgery in December 2021. Status: Acute Total time spent: Total time spent is greater than 50% in coordination of care (as documented) at patient's floor/unit and/or counseling patient: (2) Closed fracture of neck of right femur: Problem comment: 08/09/2022. Surgery planned for tomorrow morning Status: Acute Total time spent: Total time spent is greater than 50% in coordination of care (as documented) at patient's floor/unit and/or counseling patient: (3) Chronic diarrhea: Problem comment: Longstanding chronic diarrhea. Nonbloody. Outpatient has had multiple normal stool studies. Recent flexible sigmoidoscopy with normal findings and biopsies June 2022 Status: Acute Total time spent: Total time spent is greater than 50% in coordination of care (as documented) at patient's floor/unit and/or counseling patient: (4) Functional neurological symptom disorder with mixed symptoms: Problem comment: Diplopia, falls, vertigo, blurry vision, tremor, numbness, tingling, speech difficulties. See Psychiatry records from [facility], She sees Dr. Vasquez, neuropsychology, at [facility]. She also sees Dr. Kory Mccloud, Neurology at [facility], and Dr Conte, funnel setter Status: Acute Total time spent: Total time spent is greater than 50% in coordination of care (as documented) at patient's floor/unit and/or counseling patient: (5) Anxiety: Status: Acute Total time spent: Total time spent is greater than 50% in coordination of care (as documented) at patient's floor/unit and/or counseling patient: Plan I had a good discussion today with the patient. I help her understand pathology. In my opinion, because she previously ambulated with a walker for assistance, I do think surgery is indicated. This would be to stabilize the valgus impacted femoral neck fracture in this 67-year-old female. I would suggest the procedure be done in a timely fashion. I have coordinated care with the hospitalist. They do feel like she is in an appropriate state of health to undergo surgery. We will plan for surgery on the morning of 08/10/2022. We discussed the risks, benefits, and alternatives to both nonoperative and operative intervention. I believe all questions answered. Indeed the patient is of sound mind. She is choosing to undergo the surgery. Following surgery, anticipate 24 hours of perioperative antibiotics. DVT prophylaxis. Also, analgesics as needed. Weightbear as tolerated right lower extremity. Walker for ambulation assistance. PT/OT consult will be worthwhile for education and assistance. Social work consult for discharge planning likely also beneficial
--- NOTE | 2022-08-10 10:29 | P.ORPRC_ITS ---
Procedure Note Date of procedure: 08/10/22 Procedure: PREOPERATIVE DIAGNOSES: 1. Right femoral neck fracture, valgus impacted, acute, closed POSTOPERATIVE DIAGNOSES: 1. Right femoral neck fracture, valgus impacted, acute, closed NAME OF OPERATION: 1. Right femur open reduction and internal fixation 2. [id number] - intraoperative fluoroscopy up to 1 hour. SURGEON: Anup Phillips MD DIRECTOR MULTIPLE SCLEROSIS CENTER: Lexy Jennings PA-C. Of note, an commercial real estate assistant was critical for this case to aide in patient positioning, extremity positioning, tissue retraction, instrument manipulation, and closure. ANESTHESIA: Spinal IMPLANTS: Synthes FNS (femoral neck system) 1 hole sideplate with barrel and anti rotation screw as well as single 5.0 mm locking screw EBL: 25 mL COMPLICATIONS: None evident INDICATIONS: The patient is a pleasant, 67-year-old female who unfortunately sustained a fall within the last 24 hours. They landed on their right hip and were unable to bear weight. They experienced significant pain which prompted a visit to [facility]. X-rays were obtained and revealed a proximal femur fracture consistent with a valgus impacted femoral neck fracture. Given these findings, along with the desire to help with pain control and improved mobility / mobilization, surgery was recommended to stabilize the fracture and prevent it from displacing. PROCEDURE: Following a thorough discussion of risks, benefits, and alternatives, consent was obtained and the right hip was marked. After obtaining proper medical evaluation determining the patient was optimized prior to surgery, they were brought to the operating room and placed supine on the operating table. Induction of anesthesia undertaken. 2 g IV Ancef was administered within 1 hr of incision preoperatively. Proper time-out was performed identifying proper patient, site, and procedure. The operative extremity was prepped & draped in the appropriate sterile fashion using ChloraPrep after the patient was positioned on the [place] table with the head in neutral alignment all bone prominences well padded. C-arm fluoroscopic imaging was utilized to obtain AP and lateral views of the operative hip. This indeed confirmed proper position of the proximal femur fracture in a valgus impacted manner. A longitudinal 10 blade skin incision was made distal to the greater trochanteric tip. Dissection through subcutaneous layer with Bovie cautery allowed clear identification of the ITB band. This was sharply incised with a 10 blade. Dissection was then bluntly carried down with a Ramos elevator to the lateral femur. The angled guide was then utilized to place our initial guide pin. The target was approximately center center position the femoral head/neck hearing slightly inferior if anything. After confirming the proper location for this on both planes on fluoroscopic imaging, the large Reamer was utilized for ventral [place] passage. The barrel was then opened and inserted. The 5.0 mm locking screw on the single side hole plate was then drilled, measured, and placed with good control utilizing the torque screwdriver. The proximal anterior rotation screw was then drilled, and placed again utilizing the torque screwdriver. Fluoroscopy confirmed implants to be in appropriate position on both planes. Thereafter, thorough irrigation normal saline was performed. Closure performed with # 0 Stratafix for ITB band closure. Then 2-0 Vicryl and 2-0 Stratafix for subcutaneous layers and 4-0 Monocryl/Stratafix for subcuticular closure. The patient was awoken from anesthesia and transferred to the PACU in stable condition. PLAN: 1. Weight bear as tolerated operative lower extremity. 2. Encouraged ice. 3. Oxycodone for pain as needed. 4. 23 hr perioperative antibiotics. 5. Chemoprophylaxis for DVT prophylaxis along with Pete hoffman and SCDs.
--- NOTE | 2022-08-10 10:42 | W.ANESCHARGE ---
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
[2022-08-10] MEDS: PHENYLEPHRINE 100 MCG/ML SYRINGE IVP ×6 (11:05→11:35)
[2022-08-10] MEDS: LACTATED RINGERS 1000 ML 1,000 ML 35 ML IV (11:13)
--- NOTE | 2022-08-10 11:15 | CRLHL7_ITS ---
For Patients: As a result of the Cures Act, medical imaging exams and procedure reports are released immediately into your electronic medical record. You may view this report before your referring provider. If you have questions, please contact your health care provider. Indication: ORIF OF RT HIP Technique: Two fluoroscopic images of the right hip. Fluoroscopic time 49.4 seconds. IMPRESSION: Fluoroscopic guidance for open reduction internal fixation of right femoral neck fractures. Dictated by Chito Castillo MD @ 08/12/2022 9:29:40 AM (Electronically Signed)
--- NOTE | 2022-08-10 11:22 | SUR.PHASEI ---
dr de la torre notified of BP. per md 500cc lr bolus to be given; bp will be managed per md; ok to discharge from PACU in 10 minutes
--- NOTE | 2022-08-10 11:32 | SUR.PHASEI ---
250CC LR GIVEN FROM 500CC LR BOLUS PER DR JB TURK
[2022-08-10] MEDS: LACTATED RINGERS 1000 ML 1,000 ML 75 ML IV (14:16)
[2022-08-10 14:52] LABS: Hemoglobin* 10.5 gm/dL (12.0-16.0)
--- NOTE | 2022-08-10 15:26 | P.IMPN_ITS ---
Progress Note: A&P Assessment and plan (1) Closed fracture of neck of right femur: Problem details: 08/09/2022. Uncomplicated ORIF of the right impacted femoral neck fracture performed by Dr. Phillips. Minimal blood loss. Status: Acute (2) Physical deconditioning: Problem details: sedentary lifestyle. Uses a walker. Getting home physical therapy. Was in a group home home for rehab for 45 days after hernia surgery in December 2021. Status: Acute (3) Chronic diarrhea: Problem details: Longstanding chronic diarrhea. Nonbloody. Outpatient has had multiple normal stool studies. Recent flexible sigmoidoscopy with normal findings and biopsies June 2022 Status: Acute (4) Functional neurological symptom disorder with mixed symptoms: Problem details: Diplopia, falls, vertigo, blurry vision, tremor, numbness, tingling, speech difficulties. See Psychiatry records from [place], She sees Dr. Vasquez, neuropsychology, at [place]. She also sees Dr. Kory Mccloud, Neurology at [place], and Dr Inés MD psychiatry Status: Acute (5) Anxiety: Status: Acute (6) Irritable bowel syndrome: Status: Acute (7) Obstructive sleep apnea treated with continuous positive airway pressure (CPAP): Status: Chronic Plan Continue in hospital for close monitoring of vital signs with a special attention to hypotension and hypoxia. I anticipate hypoxia will resolve as she awakens from surgery and is able to wean down her pain medications. Cautious use of pain medications in this setting of patient with sleep apnea on opioids and benzodiazepines. Hypotension is still presumably related to blood loss from the fracture though I anticipate that there may be additional factors. She likely has some chronic low blood pressure. She also may have side effects from some of her chronic medications/polypharmacy. Continue to monitor and adjust. Anticipate weaning off of norepinephrine as her spinal wears off and that she wakes up. Time Spent With Patient Total time spent: Total time spent today is 65 minutes in critical care evaluation management Subjective Date Seen: 08/10/22 Interval history: 67-year-old female admitted to the hospital yesterday after a fall causing a right femoral neck fracture. She has had relatively low blood pressure since her fall. This has been a recent problem for her by her report. She was taken to the operating room this morning by Dr. Phillips where she had ORIF performed. Procedure was uncomplicated. Postoperatively she has been continue to have relative hypotension. Because of this she was transferred to the CCU and placed on a low dose of norepinephrine. She has had approximately 2 gram/deciliter drop in her hemoglobin from 10.7- 10.5, presumed secondary to her hip fracture with IV fluids given as well. No other obvious causes of hypotension are apparent including cardiogenic shock, septic shock, obstructive shock. She reports generally feeling well other than her hip injury. She has had relative sedation related to medications to control her pain and anxiety. She is mildly hypoxic but not dyspneic. Exam Narrative: Exam Narrative: When I see her this morning she is alert and oriented to her circumstances. Postoperatively she is somnolent but arouses to voice. She is oriented to her circumstances. No obvious facial asymmetry. Oropharynx with dry mucous membranes. Neck is supple out mass or adenopathy. No jugular venous distension. Respirations are clear to auscultation. Breathing is unlabored. Cardiovascular: S1, S2, regular rate and rhythm. No murmur gallop or rub. Abdomen: Bowel sounds active. Abdomen is soft without tenderness or mass. Hip is examined she has incision without significant drainage. Distally she has int act pulses and sensation. Const: Vital Signs, click to edit/add: Vital Signs - 24 hr 08/09/22 16:17 08/09/22 17:25 08/09/22 19:25 Temperature 97.8 F 98.6 F Pulse Rate Pulse Rate [Right Brachial] 92 76 Respiratory Rate 18 18 Blood Pressure Blood Pressure [Ri ght Arm] 101/60 94/52 L Pulse Oximetry 94 94 98 Oxygen Delivery Me thod Room Air Room Air Room Air Oxygen Flow Rate 08/09/22 23:00 08/10/22 00:19 08/10/22 02:00 Temperature 98.0 F Pulse Rate Pulse Rate [Right Brachial] 86 80 75 Respiratory Rate 16 Blood Pressure Blood Pressure [Ri ght Arm] 78/50 L 82/49 L 88/54 L Pulse Oximetry 95 Oxygen Delivery Me thod Room Air CPAP Oxygen Flow Rate 08/10/22 03:00 08/10/22 08:19 08/10/22 10:37 Temperature 97.8 F 99 F 98.9 F Pulse Rate 80 Pulse Rate [Right Brachial] 84 62 Respiratory Rate 16 18 16 Blood Pressure 98/63 Blood Pressure [Ri ght Arm] 94/82 90/48 L Pulse Oximetry 93 99 96 Oxygen Delivery Me thod Room Air CPAP Room Air Nasal Cannula Oxygen Flow Rate 4 08/10/22 10:40 08/10/22 10:45 08/10/22 10:50 Temperature Pulse Rate 76 76 74 Pulse Rate [Right Brachial] Respiratory Rate 16 14 16 Blood Pressure 72/34 L 86/38 L 94/52 L Blood Pressure [Ri ght Arm] Pulse Oximetry 98 96 100 Oxygen Delivery Me thod Oxygen Flow Rate 08/10/22 10:55 08/10/22 11:00 08/10/22 11:02 Temperature Pulse Rate 71 78 62 Pulse Rate [Right Brachial] Respiratory Rate 12 14 12 Blood Pressure 58/42 L 59/39 L 117/50 L Blood Pressure [Ri ght Arm] Pulse Oximetry 97 97 93 Oxygen Delivery Me thod Oxygen Flow Rate 08/10/22 11:05 08/10/22 11:10 08/10/22 11:15 Temperature 98.5 F Pulse Rate 68 75 69 Pulse Rate [Right Brachial] Respiratory Rate 12 12 12 Blood Pressure 80/30 L 67/44 L 90/52 L Blood Pressure [Ri ght Arm] Pulse Oximetry 95 97 97 Oxygen Delivery Me thod Oxygen Flow Rate 2 08/10/22 11:20 08/10/22 11:25 08/10/22 11:30 Temperature 98.6 F Pulse Rate 73 72 82 Pulse Rate [Right Brachial] Respiratory Rate 12 12 12 Blood Pressure 81/41 L 92/57 L 83/55 L Blood Pressure [Ri ght Arm] Pulse Oximetry 94 93 92 Oxygen Delivery Me thod Oxygen Flow Rate 08/10/22 11:36 08/10/22 11:40 08/10/22 11:45 Temperature 98.2 F Pulse Rate 76 Pulse Rate [Right Brachial] 70 Respiratory Rate 16 16 Blood Pressure Blood Pressure [Ri ght Arm] 71/33 L 85/45 L 93/39 L Pulse Oximetry 94 Oxygen Delivery Me thod Nasal Cannula Nasal Cannula Oxygen Flow Rate 2 2 08/10/22 12:00 08/10/22 12:15 08/10/22 12:30 Temperature 97.6 F Pulse Rate Pulse Rate [Right Brachial] 62 76 84 Respiratory Rate 16 16 20 Blood Pressure Blood Pressure [Ri ght Arm] 123/74 94/78 118/64 Pulse Oximetry 95 93 95 Oxygen Delivery Me thod Nasal Cannula Nasal Cannula Nasal Cannula Oxygen Flow Rate 2 2 2 08/10/22 12:45 08/10/22 13:00 08/10/22 13:15 Temperature Pulse Rate Pulse Rate [Right Brachial] 76 Respiratory Rate 18 Blood Pressure Blood Pressure [Ri ght Arm] 97/41 L 116/74 110/55 L Pulse Oximetry 97 Oxygen Delivery Me thod Nasal Cannula Oxygen Flow Rate 2 08/10/22 13:30 08/10/22 13:45 08/10/22 14:00 Temperature 98.4 F Pulse Rate Pulse Rate [Right Brachial] 76 Respiratory Rate 18 Blood Pressure Blood Pressure [Ri ght Arm] 93/79 115/51 L 102/58 L Pulse Oximetry 97 Oxygen Delivery Me thod Nasal Cannula Oxygen Flow Rate 2 08/10/22 14:15 08/10/22 14:30 08/10/22 14:45 Temperature 98.2 F Pulse Rate Pulse Rate [Right Brachial] 86 Respiratory Rate 16 Blood Pressure Blood Pressure [Ri ght Arm] 119/60 94/69 122/81 Pulse Oximetry 96 Oxygen Delivery Me thod Nasal Cannula Oxygen Flow Rate 2 08/10/22 15:00 08/10/22 15:15 Temperature Pulse Rate Pulse Rate [Right Brachial] Respiratory Rate Blood Pressure Blood Pressure [Ri ght Arm] 111/60 137/65 Pulse Oximetry Oxygen Delivery Me thod Oxygen Flow Rate Labs Labs: Laboratory Results - last 24 hr 08/10/22 08/10/22 08/10/22 00:15 05:40 14:42 WBC 6.71 RBC 3.24 L Hgb 13.0 10.1 L 10.5 L Hct 31.1 L MCV 96 MCH 31 MCHC 33 RDW Coeff of Quirino 12.4 Plt Count 178 Neut % (Auto) 58.5 Lymph % (Auto) 25.5 Bent % (Auto) 12.5 H Eos % (Auto) 2.4 Baso % (Auto) 0.4 Neut # (Auto) 3.92 Lymph # (Auto) 1.71 Bent # (Auto) 0.80 Eos # (Auto) 0.16 Baso # (Auto) 0.03 Sodium 132 L Potassium 4.1 Chloride 101 Carbon Dioxide 29 BUN 13 Creatinine 0.6 Estimated Creat Clear 44.36 Estimated GFR 100 Glucose 74 Calcium 8.3 L Total Bilirubin 1.0 AST 103 H ALT 105 H Alkaline Phosphatase 66 Total Protein 5.7 L Albumin 3.2 L
[2022-08-10] MEDS: MONTELUKAST 10 MG TABLET PO (20:47)
[2022-08-10] MEDS: DIVALPROEX SODIUM 125 MG CAP.DR.SPR 375 MG PO (20:47)
[2022-08-10] MEDS: TRAZODONE HCL 50 MG TABLET 75 MG PO (20:47)
[2022-08-10] MEDS: fentaNYL 100 MCG/2 ML inj 25 MCG IVP (22:54)
[2022-08-11] VITALS (40 sets, daily range): BP systolic 85–116; BP diastolic 41–89; PULSE 68–95; RESP 16–18; TEMP 36.6–37.6; O2SAT 91–96
[2022-08-11] MEDS: LACTATED RINGERS 500 ML 500 ML IV (00:36)
[2022-08-11] MEDS: CEFAZOLIN 2 GM in 0.9 % SODIUM CHLORIDE Mini-bag 100 ML IVPB ×2 (01:38→09:13)
[2022-08-11] MEDS: LACTATED RINGERS 1000 ML 1,000 ML 75 ML IV (04:38)
[2022-08-11] MEDS: fentaNYL 100 MCG/2 ML inj 25 MCG IVP ×2 (04:41→07:38)
[2022-08-11] MEDS: SODIUM CHLORIDE 0.9 % (FLUSH) 10 ML SYRINGE 5 ML IVF (04:45)
--- NOTE | 2022-08-11 06:12 | PC.NURSE ---
Pt alert and oriented, rating pain 5-10/10, see MAR for medication administration. Pt states she slept on/off through the night. Used CPAP most of night then removing it on her own around 0430, remains in low to mid 90's on Room Air throughout the night. Norepinephrine drip continues due to low B/P. See MAR for infusion rate changes. Pt reluctant to reposition and refused to attempt to sit at bedside to dangle due to pain and weakness in right leg. Encouraged pt to shift in bed and wiggle feet on her own. Encouragement needed. Hartley patent and draining pale yellow urine.
[2022-08-11] MEDS: OMEPRAZOLE 20 MG CAPSULE DR 40 MG PO (06:21)
[2022-08-11 06:40] LABS: Lactate* 1.3 mmol/L (0.5-1.9)
[2022-08-11 06:47] LABS: Basophils Absolute Auto 0.02 K/uL (0.00-0.30); Basophils Percent Auto 0.3 % (0.0-3.0); Eosinophils Absolute Auto 0.12 K/uL (0.00-0.50); Eosinophils Percent Auto 1.6 % (0.0-7.0); Hematocrit 31.7 % (33.0-51.0); Hemoglobin* 10.7 gm/dL (12.0-16.0); Immature Granulocytes Abs Auto 0.02 K/uL (0.00-0.30); Immature Granulocytes Pct Auto 0.3 %; Lymphocytes Percent Auto 13.2 % (20-44); Mean Corpuscular HGB Conc 34 gm/dL (32-36); Mean Corpuscular Hemoglobin 32 pg (26-34); Mean Corpuscular Volume 93 fL (80-100); Monocytes Percent Auto 10.5 % (0.0-11.0); Neutrophils Percent Auto 74.1 % (42.0-72.0); Platelet Count* 174 K/uL (140-440); RDW Coefficient of Variation % 11.7 % (11.5-15.5); White Blood Count* 7.42 K/uL (4.50-11.00)
[2022-08-11 06:48] LABS: Slide Review Reflex No
[2022-08-11 06:51] LABS: Albumin* 3.1 g/dL (3.3-5.0); Potassium* 3.5 mmol/L (3.6-5.1); Sodium* 134 mmol/L (135-149)
[2022-08-11 06:54] LABS: Bilirubin Direct* 0.2 mg/dL (0.0-0.5); Bilirubin Total* 0.8 mg/dL (0.1-1.5); Blood Urea Nitrogen* 3 mg/dL (7-30); Creatinine* 0.5 mg/dL (0.5-1.5); Est. Creatinine Clearance* 44.36; Estimated Glomerular Filt Rate 104 ml/min; Total Protein* 5.3 g/dL (6.0-8.3)
[2022-08-11 06:55] LABS: Alanine Aminotransferase* 58 U/L (4-35); Alkaline Phosphatase* 74 U/L (40-150); Aspartate Amino Transferase* 43 U/L (12-35)
[2022-08-11 07:08] LABS: Procalcitonin* 0.09 ng/mL (<0.50)
[2022-08-11 07:13] LABS: NT Pro B Type NatriureticPept* 1930 pg/mL
[2022-08-11] MEDS: HYDROCORTISONE SOD SUCCINATE 50 MG/ML inj 100 MG IVP (08:18)
[2022-08-11] MEDS: DIVALPROEX SODIUM 125 MG CAP.DR.SPR 375 MG PO ×2 (08:18→20:11)
[2022-08-11] MEDS: SENNOSIDES 1 TAB TABLET 2 TAB PO (08:19)
[2022-08-11] MEDS: VENLAFAXINE ER 75 MG CAPSULE 225 MG PO (08:19)
[2022-08-11] MEDS: RIVAROXABAN 10 MG TABLET PO (08:19)
--- NOTE | 2022-08-11 09:00 | P.ORPN_ITS ---
Subjective Subjective Time Seen by Provider: 09:00 Date Seen: 08/11/22 Principal diagnosis: Right femoral neck fracture ORIF 08/10/2022 Interval history: 67-year-old female comfortable at rest in her bed. She had low blood pressure postoperatively, placed in the CCU and given norepinephrine Ortho Exam Narrative Exam Narrative: Alert and oriented x3. Patient is in no acute distress. Converses without labored breathing. Hearing is grossly intact. With the slightest touch of her thigh she scratches with pain. This appears to be over reacting for she has no erythema or warmth or sign of infection. Tissues are soft. I asked her to touch and squeeze her own thigh and she does not screech in pain. No foot drop. CMS intact right lower extremity. Generalized weakness. I asked her to straight leg raise with the left non operative leg and she was able to clench her quads and lift her heel off the bed 1 cm. She does not have the upper body strength to adjust herself in bed. She will not attempt to flex her hip or her knee on the right. Const Vital Signs, click to edit/add: Vital Signs - 24 hr 08/10/22 10:37 08/10/22 10:40 08/10/22 10:45 Temperature 98.9 F Pulse Rate 80 76 76 Pulse Rate [Right Brachial] Respiratory Rate 16 16 14 Blood Pressure 98/63 72/34 L 86/38 L Blood Pressure [Right Arm] Pulse Oximetry 96 98 96 Oxygen Delivery Method Nasal Cannula Oxygen Flow Rate 4 08/10/22 10:50 08/10/22 10:55 08/10/22 11:00 Temperature Pulse Rate 74 71 78 Pulse Rate [Right Brachial] Respiratory Rate 16 12 14 Blood Pressure 94/52 L 58/42 L 59/39 L Blood Pressure [Right Arm] Pulse Oximetry 100 97 97 Oxygen Delivery Method Oxygen Flow Rate 08/10/22 11:02 08/10/22 11:05 08/10/22 11:10 Temperature 98.5 F Pulse Rate 62 68 75 Pulse Rate [Right Brachial] Respiratory Rate 12 12 12 Blood Pressure 117/50 L 80/30 L 67/44 L Blood Pressure [Right Arm] Pulse Oximetry 93 95 97 Oxygen Delivery Method Oxygen Flow Rate 2 08/10/22 11:15 08/10/22 11:20 08/10/22 11:25 Temperature Pulse Rate 69 73 72 Pulse Rate [Right Brachial] Respiratory Rate 12 12 12 Blood Pressure 90/52 L 81/41 L 92/57 L Blood Pressure [Right Arm] Pulse Oximetry 97 94 93 Oxygen Delivery Method Oxygen Flow Rate 08/10/22 11:30 08/10/22 11:36 08/10/22 11:40 Temperature 98.6 F Pulse Rate 82 76 Pulse Rate [Right Brachial] Respiratory Rate 12 16 Blood Pressure 83/55 L Blood Pressure [Right Arm] 71/33 L 85/45 L Pulse Oximetry 92 Oxygen Delivery Method Nasal Cannula Oxygen Flow Rate 2 08/10/22 11:45 08/10/22 12:00 08/10/22 12:15 Temperature 98.2 F Pulse Rate Pulse Rate [Right Brachial] 70 62 76 Respiratory Rate 16 16 16 Blood Pressure Blood Pressure [Right Arm] 93/39 L 123/74 94/78 Pulse Oximetry 94 95 93 Oxygen Delivery Method Nasal Cannula Nasal Cannula Nasal Cannula Oxygen Flow Rate 2 2 2 08/10/22 12:30 08/10/22 12:45 08/10/22 13:00 Temperature 97.6 F Pulse Rate Pulse Rate [Right Brachial] 84 76 Respiratory Rate 20 18 Blood Pressure Blood Pressure [Right Arm] 118/64 97/41 L 116/74 Pulse Oximetry 95 97 Oxygen Delivery Method Nasal Cannula Nasal Cannula Oxygen Flow Rate 2 2 08/10/22 13:15 08/10/22 13:30 08/10/22 13:45 Temperature 98.4 F Pulse Rate Pulse Rate [Right Brachial] 76 Respiratory Rate 18 Blood Pressure Blood Pressure [Right Arm] 110/55 L 93/79 115/51 L Pulse Oximetry 97 Oxygen Delivery Method Nasal Cannula Oxygen Flow Rate 2 08/10/22 14:00 08/10/22 14:15 08/10/22 14:30 Temperature 98.2 F Pulse Rate Pulse Rate [Right Brachial] 86 Respiratory Rate 16 Blood Pressure Blood Pressure [Right Arm] 102/58 L 119/60 94/69 Pulse Oximetry 96 Oxygen Delivery Method Nasal Cannula Oxygen Flow Rate 2 08/10/22 14:45 08/10/22 15:00 08/10/22 15:15 Temperature Pulse Rate Pulse Rate [Right Brachial] Respiratory Rate Blood Pressure Blood Pressure [Right Arm] 122/81 111/60 137/65 Pulse Oximetry Oxygen Delivery Method Oxygen Flow Rate 08/10/22 15:30 08/10/22 15:45 08/10/22 16:00 Temperature 98.5 F Pulse Rate Pulse Rate [Right Brachial] 68 Respiratory Rate 16 Blood Pressure Blood Pressure [Right Arm] 126/60 98/47 L 103/64 Pulse Oximetry 95 Oxygen Delivery Method Nasal Cannula Oxygen Flow Rate 2 08/10/22 16:12 08/10/22 16:15 08/10/22 16:30 Temperature 98.3 F Pulse Rate Pulse Rate [Right Brachial] 85 Respiratory Rate 18 Blood Pressure Blood Pressure [Right Arm] 116/95 H 102/48 L Pulse Oximetry 96 98 Oxygen Delivery Method Nasal Cannula Nasal Cannula Oxygen Flow Rate 2 2 08/10/22 16:45 08/10/22 17:00 08/10/22 17:15 Temperature Pulse Rate Pulse Rate [Right Brachial] Respiratory Rate Blood Pressure Blood Pressure [Right Arm] 90/54 L 96/43 L 100/50 L Pulse Oximetry Oxygen Delivery Method Oxygen Flow Rate 08/10/22 17:30 08/10/22 17:45 08/10/22 18:00 Temperature 98.1 F Pulse Rate Pulse Rate [Right Brachial] 88 Respiratory Rate 16 Blood Pressure Blood Pressure [Right Arm] 108/59 L 96/77 85/41 L Pulse Oximetry 97 Oxygen Delivery Method Nasal Cannula Oxygen Flow Rate 2 08/10/22 18:15 08/10/22 18:30 08/10/22 18:45 Temperature Pulse Rate Pulse Rate [Right Brachial] Respiratory Rate Blood Pressure Blood Pressure [Right Arm] 86/50 L 77/63 L 90/43 L Pulse Oximetry Oxygen Delivery Method Oxygen Flow Rate 08/10/22 19:00 08/10/22 19:15 08/10/22 19:30 Temperature 98.2 F Pulse Rate Pulse Rate [Right Brachial] 75 Respiratory Rate 18 Blood Pressure Blood Pressure [Right Arm] 93/57 L 110/66 110/55 L Pulse Oximetry 98 Oxygen Delivery Method Nasal Cannula Oxygen Flow Rate 2 08/10/22 19:45 08/10/22 20:00 08/10/22 20:30 Temperature Pulse Rate Pulse Rate [Right Brachial] 68 71 71 Respiratory Rate Blood Pressure Blood Pressure [Right Arm] 107/65 98/73 130/104 H Pulse Oximetry 99 Oxygen Delivery Method Nasal Cannula Oxygen Flow Rate 1.5 08/10/22 20:45 08/10/22 21:00 08/10/22 21:30 Temperature Pulse Rate Pulse Rate [Right Brachial] 71 75 75 Respiratory Rate Blood Pressure Blood Pressure [Right Arm] 105/70 98/51 L 92/44 L Pulse Oximetry Oxygen Delivery Method Oxygen Flow Rate 08/10/22 21:45 08/10/22 22:00 08/10/22 22:15 Temperature Pulse Rate Pulse Rate [Right Brachial] 78 78 79 Respiratory Rate Blood Pressure Blood Pressure [Right Arm] 86/44 L 84/41 L 84/42 L Pulse Oximetry Oxygen Delivery Method Oxygen Flow Rate 08/10/22 22:30 08/10/22 22:45 08/10/22 23:00 Temperature Pulse Rate Pulse Rate [Right Brachial] 81 78 81 Respiratory Rate Blood Pressure Blood Pressure [Right Arm] 81/40 L 93/45 L 83/55 L Pulse Oximetry Oxygen Delivery Method Oxygen Flow Rate 08/10/22 23:00 08/10/22 23:00 08/10/22 23:30 Temperature Pulse Rate Pulse Rate [Right Brachial] 84 Respiratory Rate 18 Blood Pressure Blood Pressure [Right Arm] 80/40 L Pulse Oximetry 93 93 Oxygen Delivery Method CPAP Oxygen Flow Rate 08/11/22 00:00 08/11/22 00:30 08/11/22 01:00 Temperature 98.3 F Pulse Rate Pulse Rate [Right Brachial] 88 95 91 Respiratory Rate Blood Pressure Blood Pressure [Right Arm] 99/45 L 85/58 L 89/49 L Pulse Oximetry Oxygen Delivery Method Oxygen Flow Rate 08/11/22 01:30 08/11/22 02:00 08/11/22 02:30 Temperature Pulse Rate Pulse Rate [Right Brachial] 92 84 78 Respiratory Rate Blood Pressure Blood Pressure [Right Arm] 85/43 L 101/64 103/63 Pulse Oximetry Oxygen Delivery Method Oxygen Flow Rate 08/11/22 03:00 08/11/22 03:30 08/11/22 04:00 Temperature 98.2 F Pulse Rate Pulse Rate [Right Brachial] 70 Respiratory Rate 18 Blood Pressure Blood Pressure [Right Arm] 101/56 L 113/65 106/51 L Pulse Oximetry 96 Oxygen Delivery Method CPAP Oxygen Flow Rate 08/11/22 04:30 08/11/22 05:00 08/11/22 05:35 Temperature Pulse Rate Pulse Rate [Right Brachial] 73 74 Respiratory Rate Blood Pressure Blood Pressure [Right Arm] 99/63 102/41 L 104/49 L Pulse Oximetry Oxygen Delivery Method Oxygen Flow Rate 08/11/22 06:00 08/11/22 06:30 08/11/22 07:30 Temperature Pulse Rate Pulse Rate [Right Brachial] 69 73 Respiratory Rate Blood Pressure Blood Pressure [Right Arm] 109/66 111/49 L Pulse Oximetry 95 93 Oxygen Delivery Method Room Air Room Air Oxygen Flow Rate 08/11/22 07:30 08/11/22 07:30 08/11/22 08:00 Temperature 99.6 F Pulse Rate Pulse Rate [Right Brachial] 81 Respiratory Rate 16 Blood Pressure Blood Pressure [Right Arm] 103/53 L 98/76 Pulse Oximetry 93 93 Oxygen Delivery Method Room Air Oxygen Flow Rate 08/11/22 08:30 Temperature Pulse Rate Pulse Rate [Right Brachial] Respiratory Rate Blood Pressure Blood Pressure [Right Arm] 104/54 L Pulse Oximetry Oxygen Delivery Method Oxygen Flow Rate Assessment and Plan Assessment and plan (1) Closed fracture of neck of right femur: Problem details: 08/09/2022. Uncomplicated ORIF of the right impacted femoral neck fracture performed by Dr. Phillips. Minimal blood loss. Status: Acute Assessment and Plan: Plan for discharge is today to correction facility when she meets discharge criteria. DVT prophylaxis includes Xarelto 10 mg daily for total of 35 days, , Pete stockings x1 month may remove for 1 hr per day, frequent ambulation with weight- bearing as tolerated right lower extremity. Physical therapy and occupational therapy daily at correction facility. I have given her her Power Aid drink Mix that is on her table asked her to do biceps curls and overhead presses several times throughout the day. I have asked her not to drink this but she can add more water to fill it up to give it more weight. I have also asked her continuously be working on strength as she is lying in bed or in a chair. She must move around as much as possible, walking with a walker with therapy and nursing staff. We spoke about strength equals longevity. She has been using a walker and a wheelchair since December and therefore is extremely deconditioned. She must get her strength back or she will be using a walker and wheelchair for the rest of her life. There is no reason she cannot increase her strength if she works on it. She states she has a physical therapist come to her home 2 days per week. Asked her what she does on the other 5 days per week to strengthen at home. She does not work on becoming more independent and stronger as it sounds. 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 I have asked her to work hard with her physical therapist when they arrived this morning. She will have some pain, it is okay to have pain. Remove dressing 1 week. Reapply dressing as needed. Observe wound and phone Orthopedics with any questions or concerns Use Ice on operative hip unrestricted. Return to clinic in [address] Phillips Minimize narcotic use. Wean off and discontinue soon as possible. Orthopedic discharge medications have not been placed as her usp has not been determined yet. (2) Physical deconditioning: Problem details: sedentary lifestyle. Uses a walker. Getting home physical therapy. Was in a correction home for rehab for 45 days after hernia surgery in December 2021. Status: Acute (3) Chronic diarrhea: Problem details: Longstanding chronic diarrhea. Nonbloody. Outpatient has had multiple normal stool studies. Recent flexible sigmoidoscopy with normal findings and biopsies June 2022 Status: Acute (4) Functional neurological symptom disorder with mixed symptoms: Problem details: Diplopia, falls, vertigo, blurry vision, tremor, numbness, tingling, speech difficulties. See Psychiatry records from [place], She sees Dr. Vasquez, neuropsychology, at [place]. She also sees Dr. Kory Mccloud, Neurology at [place], and Dr Inés MD psychiatry Status: Acute (5) Anxiety: Status: Acute (6) Irritable bowel syndrome: Status: Acute (7) Obstructive sleep apnea treated with continuous positive airway pressure (CPAP): Status: Chronic
--- NOTE | 2022-08-11 10:16 | RESP.RT ---
Patient used Home CPAP last night with no issues. CPAP set up at bedside, water in chamber, ptient needs little assistance with mask placement.
[2022-08-11] MEDS: SODIUM CHLORIDE 0.9 % (FLUSH) 10 ML SYRINGE IVF ×3 (15:00→22:47)
[2022-08-11] MEDS: HYDROCORTISONE SOD SUCCINATE 50 MG/ML inj IVP ×2 (15:00→22:48)
--- NOTE | 2022-08-11 16:08 | PM.IMPN1 ---
Progress Note: A&P Assessment and plan (1) Hypotension: Problem details: Patient has fairly severe hypotension without definite evidence of shock, organ dysfunction or failure. I am concerned about the possibility of adrenal insufficiency and of started systemic corticosteroids. Today she was able to wean off norepinephrine after receiving IV hydrocortisone. Cortisol level is pending. No evidence for blood loss anemia with minimal blood loss so far. Not obvious cardiogenic shock, obstructive shock, septic shock, neurogenic shock. Status: Acute (2) Closed fracture of neck of right femur: Problem details: 08/09/2022. Uncomplicated ORIF of the right impacted femoral neck fracture performed by Dr. Phillips. Minimal blood loss. Status: Acute (3) Physical deconditioning: Problem details: sedentary lifestyle. Uses a walker. Getting home physical therapy. Was in a senior living home for rehab for 45 days after hernia surgery in December 2021. Status: Acute (4) Chronic diarrhea: Problem details: Longstanding chronic diarrhea. Nonbloody. Outpatient has had multiple normal stool studies. Recent flexible sigmoidoscopy with normal findings and biopsies June 2022. No diarrhea since surgery Status: Acute (5) Functional neurological symptom disorder with mixed symptoms: Problem details: Diplopia, falls, vertigo, blurry vision, tremor, numbness, tingling, speech difficulties. See Psychiatry records from [place], She sees Dr. Vasquez, neuropsychology, at [place]. She also sees Dr. oKry Mccloud, Neurology at [place], and Dr Inés MD psychiatry Status: Acute (6) Anxiety: Problem details: Prominent symptoms. Status: Acute (7) Irritable bowel syndrome: Status: Acute (8) Obstructive sleep apnea treated with continuous positive airway pressure (CPAP): Status: Chronic Plan Continue in hospital for management of hypotension, postoperative cares, pending safe discharge plan. Likely will need senior living facility. Time Spent With Patient Total time spent: Total time spent today is 60 minutes in critical care evaluation and management Subjective Date Seen: 08/11/22 Interval history: 67-year-old female comfortable at rest in her bed. She had low blood pressure postoperatively, placed in the CCU and given norepinephrine. Overnight attempts to wean her off norepinephrine were unsuccessful. She was still requiring a low dose, 0.05 micrograms/kilos per minute, to maintain a map above 65. She was otherwise asymptomatic. She was not lightheaded. No fever or tachycardia. Excellent urine output. Pain management is a problem. Patient is resisting any movement or activity secondary to pain. Exam Narrative: Exam Narrative: She is alert lying in bed. She is reporting pain from her blood pressure cuff squeezing her right arm and her IV irritating her left wrist. She is oriented to her circumstances. Respirations are clear to auscultation. Cardiovascular: S1, S2, regular rate and rhythm. Abdomen: Bowel sounds active. Abdomen is soft with mild diffuse tenderness which improves with distraction. No mass or peritonitis. Hip without significant erythema or swelling. Intact pulses and sensation in her feet. No significant edema. Fingers and toes are still somewhat cool to touch. Const: Vital Signs, click to edit/add: Vital Signs - 24 hr 08/10/22 16:12 08/10/22 16:15 08/10/22 16:30 Temperature 98.3 F Pulse Rate [Right Brachial] 85 Respiratory Rate 18 Blood Pressure [Ri ght Arm] 116/95 H 102/48 L Pulse Oximetry 96 98 Oxygen Delivery Me thod Nasal Cannula Nasal Cannula Oxygen Flow Rate 2 2 08/10/22 16:45 08/10/22 17:00 08/10/22 17:15 Temperature Pulse Rate [Right Brachial] Respiratory Rate Blood Pressure [Ri ght Arm] 90/54 L 96/43 L 100/50 L Pulse Oximetry Oxygen Delivery Me thod Oxygen Flow Rate 08/10/22 17:30 08/10/22 17:45 08/10/22 18:00 Temperature 98.1 F Pulse Rate [Right Brachial] 88 Respiratory Rate 16 Blood Pressure [Ri ght Arm] 108/59 L 96/77 85/41 L Pulse Oximetry 97 Oxygen Delivery Me thod Nasal Cannula Oxygen Flow Rate 2 08/10/22 18:15 08/10/22 18:30 08/10/22 18:45 Temperature Pulse Rate [Right Brachial] Respiratory Rate Blood Pressure [Ri ght Arm] 86/50 L 77/63 L 90/43 L Pulse Oximetry Oxygen Delivery Me thod Oxygen Flow Rate 08/10/22 19:00 08/10/22 19:15 08/10/22 19:30 Temperature 98.2 F Pulse Rate [Right Brachial] 75 Respiratory Rate 18 Blood Pressure [Ri ght Arm] 93/57 L 110/66 110/55 L Pulse Oximetry 98 Oxygen Delivery Me thod Nasal Cannula Oxygen Flow Rate 2 08/10/22 19:45 08/10/22 20:00 08/10/22 20:30 Temperature Pulse Rate [Right Brachial] 68 71 71 Respiratory Rate Blood Pressure [Ri ght Arm] 107/65 98/73 130/104 H Pulse Oximetry 99 Oxygen Delivery Me thod Nasal Cannula Oxygen Flow Rate 1.5 08/10/22 20:45 08/10/22 21:00 08/10/22 21:30 Temperature Pulse Rate [Right Brachial] 71 75 75 Respiratory Rate Blood Pressure [Ri ght Arm] 105/70 98/51 L 92/44 L Pulse Oximetry Oxygen Delivery Me thod Oxygen Flow Rate 08/10/22 21:45 08/10/22 22:00 08/10/22 22:15 Temperature Pulse Rate [Right Brachial] 78 78 79 Respiratory Rate Blood Pressure [Ri ght Arm] 86/44 L 84/41 L 84/42 L Pulse Oximetry Oxygen Delivery Me thod Oxygen Flow Rate 08/10/22 22:30 08/10/22 22:45 08/10/22 23:00 Temperature Pulse Rate [Right Brachial] 81 78 81 Respiratory Rate Blood Pressure [Ri ght Arm] 81/40 L 93/45 L 83/55 L Pulse Oximetry Oxygen Delivery Me thod Oxygen Flow Rate 08/10/22 23:00 08/10/22 23:00 08/10/22 23:30 Temperature Pulse Rate [Right Brachial] 84 Respiratory Rate 18 Blood Pressure [Ri ght Arm] 80/40 L Pulse Oximetry 93 93 Oxygen Delivery Me thod CPAP Oxygen Flow Rate 08/11/22 00:00 08/11/22 00:30 08/11/22 01:00 Temperature 98.3 F Pulse Rate [Right Brachial] 88 95 91 Respiratory Rate Blood Pressure [Ri ght Arm] 99/45 L 85/58 L 89/49 L Pulse Oximetry Oxygen Delivery Me thod Oxygen Flow Rate 08/11/22 01:30 08/11/22 02:00 08/11/22 02:30 Temperature Pulse Rate [Right Brachial] 92 84 78 Respiratory Rate Blood Pressure [Ri ght Arm] 85/43 L 101/64 103/63 Pulse Oximetry Oxygen Delivery Me thod Oxygen Flow Rate 08/11/22 03:00 08/11/22 03:30 08/11/22 04:00 Temperature 98.2 F Pulse Rate [Right Brachial] 70 Respiratory Rate 18 Blood Pressure [Ri ght Arm] 101/56 L 113/65 106/51 L Pulse Oximetry 96 Oxygen Delivery Me thod CPAP Oxygen Flow Rate 08/11/22 04:30 08/11/22 05:00 08/11/22 05:35 Temperature Pulse Rate [Right Brachial] 73 74 Respiratory Rate Blood Pressure [Ri ght Arm] 99/63 102/41 L 104/49 L Pulse Oximetry Oxygen Delivery Me thod Oxygen Flow Rate 08/11/22 06:00 08/11/22 06:30 08/11/22 07:30 Temperature Pulse Rate [Right Brachial] 69 73 Respiratory Rate Blood Pressure [Ri ght Arm] 109/66 111/49 L Pulse Oximetry 95 93 Oxygen Delivery Me thod Room Air Room Air Oxygen Flow Rate 08/11/22 07:30 08/11/22 07:30 08/11/22 08:00 Temperature 99.6 F Pulse Rate [Right Brachial] 81 Respiratory Rate 16 Blood Pressure [Ri ght Arm] 103/53 L 98/76 Pulse Oximetry 93 93 Oxygen Delivery Me thod Room Air Oxygen Flow Rate 08/11/22 08:30 08/11/22 09:00 08/11/22 09:30 Temperature Pulse Rate [Right Brachial] Respiratory Rate Blood Pressure [Ri ght Arm] 104/54 L 107/44 L 111/58 L Pulse Oximetry Oxygen Delivery Me thod Oxygen Flow Rate 08/11/22 10:00 08/11/22 10:30 08/11/22 11:00 Temperature Pulse Rate [Right Brachial] Respiratory Rate Blood Pressure [Ri ght Arm] 97/69 111/60 107/53 L Pulse Oximetry Oxygen Delivery Me thod Oxygen Flow Rate 08/11/22 11:30 08/11/22 12:00 08/11/22 12:30 Temperature 97.8 F Pulse Rate [Right Brachial] 84 Respiratory Rate 16 Blood Pressure [Ri ght Arm] 100/49 L 88/58 L 96/48 L Pulse Oximetry 93 Oxygen Delivery Me thod Room Air Oxygen Flow Rate 08/11/22 13:00 08/11/22 13:30 08/11/22 14:00 Temperature Pulse Rate [Right Brachial] Respiratory Rate Blood Pressure [Ri ght Arm] 90/47 L 108/52 L 106/47 L Pulse Oximetry Oxygen Delivery Me thod Oxygen Flow Rate 08/11/22 15:06 08/11/22 15:06 08/11/22 15:06 Temperature 98.7 F Pulse Rate [Right Brachial] 86 Respiratory Rate 18 Blood Pressure [Ri ght Arm] 86/43 L Pulse Oximetry 93 93 93 Oxygen Delivery Me thod Room Air Room Air Oxygen Flow Rate 08/11/22 15:30 Temperature Pulse Rate [Right Brachial] Respiratory Rate Blood Pressure [Ri ght Arm] 92/57 L Pulse Oximetry Oxygen Delivery Me thod Oxygen Flow Rate Documenting provider has reviewed patient's vital signs: yes Labs Labs: Laboratory Results - last 24 hr 08/11/22 06:13 WBC 7.42 RBC 3.40 L Hgb 10.7 L Hct 31.7 L MCV 93 MCH 32 MCHC 34 RDW Coeff of Quirino 11.7 Plt Count 174 Neut % (Auto) 74.1 H Lymph % (Auto) 13.2 L Cloud % (Auto) 10.5 Eos % (Auto) 1.6 Baso % (Auto) 0.3 Neut # (Auto) 5.50 Lymph # (Auto) 1.00 Cloud # (Auto) 0.80 Eos # (Auto) 0.12 Baso # (Auto) 0.02 Sodium 134 L Potassium 3.5 L BUN 3 L Creatinine 0.5 Estimated Creat Clear 44.36 Estimated GFR 104 Lactate 1.3 Total Bilirubin 0.8 Direct Bilirubin 0.2 AST 43 H ALT 58 H Alkaline Phosphatase 74 NT-Pro-B Natriuret Pep 1930 Total Protein 5.3 L Albumin 3.1 L Procalcitonin 0.09
[2022-08-11] MEDS: FLUDROCORTISONE ACETATE 0.1 MG TABLET PO (17:26)
[2022-08-11] MEDS: OXYCODONE 5 MG TABLET PO (18:11)
[2022-08-11] MEDS: MONTELUKAST 10 MG TABLET PO (20:10)
[2022-08-11] MEDS: TRAZODONE HCL 50 MG TABLET 75 MG PO (20:10)
[2022-08-12] VITALS (11 sets, daily range): BP systolic 81–108; BP diastolic 38–69; PULSE 53–87; RESP 16–18; TEMP 36.3–37.1; O2SAT 92–98; BMI 29.8
[2022-08-12] MEDS: OXYCODONE 5 MG TABLET PO ×4 (02:19→21:37)
--- NOTE | 2022-08-12 06:08 | PC.NURSE ---
Pt pleasant and cooperative. Pt is readjusting self in bed and able to get self out of bed independently to use bedside commode with walker, gait belt, and SBA, needs minimal help to get legs back into bed. Pt states she slept well. Pain is well controlled with minimal Oxycodone, see MAR for medication administration.
[2022-08-12] MEDS: HYDROCORTISONE SOD SUCCINATE 50 MG/ML inj IVP (06:35)
[2022-08-12] MEDS: SODIUM CHLORIDE 0.9 % (FLUSH) 10 ML SYRINGE IVF ×3 (06:35→21:41)
[2022-08-12] MEDS: OMEPRAZOLE 20 MG CAPSULE DR 40 MG PO (06:35)
[2022-08-12 06:47] LABS: Basophils Absolute Auto 0.02 K/uL (0.00-0.30); Basophils Percent Auto 0.3 % (0.0-3.0); Hematocrit 28.4 % (33.0-51.0); Hemoglobin* 9.5 gm/dL (12.0-16.0); Immature Granulocytes Abs Auto 0.01 K/uL (0.00-0.30); Immature Granulocytes Pct Auto 0.1 %; Lymphocytes Percent Auto 10.2 % (20-44); Mean Corpuscular HGB Conc 34 gm/dL (32-36); Mean Corpuscular Hemoglobin 32 pg (26-34); Mean Corpuscular Volume 95 fL (80-100); Neutrophils Percent Auto 82.4 % (42.0-72.0); Platelet Count* 165 K/uL (140-440); RDW Coefficient of Variation % 12.2 % (11.5-15.5); Red Blood Count 2.99 m/uL (4.00-5.20); White Blood Count* 7.68 K/uL (4.50-11.00)
[2022-08-12 07:05] LABS: Slide Review Reflex No
[2022-08-12 09:31] LABS: Thyroid Stimulating Hormone* 0.555 uIU/mL (0.270-4.20)
[2022-08-12] MEDS: RIVAROXABAN 10 MG TABLET PO (09:46)
[2022-08-12] MEDS: VENLAFAXINE ER 75 MG CAPSULE 225 MG PO (09:47)
[2022-08-12] MEDS: DIVALPROEX SODIUM 125 MG CAP.DR.SPR 375 MG PO ×2 (09:47→21:40)
[2022-08-12] MEDS: FLUDROCORTISONE ACETATE 0.1 MG TABLET PO (09:48)
[2022-08-12] MEDS: MIDODRINE HCL 5 MG TABLET PO ×2 (09:49→21:45)
--- NOTE | 2022-08-12 11:56 | P.ORPN_ITS ---
Subjective Subjective Date Seen: 08/12/22 Principal diagnosis: Right femoral neck fracture ORIF 08/10/2022 Interval history: She is returning from the bathroom upon my time of interview with her. She is comfortable, cooperative, and in no acute distress. Hypotension continues to be an issue. She seems to be doing better today. Analgesia control seems to be improved as well, although she still acknowledges pain. Denies chest pain or shortness of breath. Denies any concerns about the right hip today. Denies fevers or chills. Ortho Exam Narrative Exam Narrative: She is comfortable, cooperative, and in no acute distress. She is using a walker for ambulation assistance and otherwise minimal assist from a nurse's aide. Able to converse with me without wincing or guarding. I see her taking steps with a mildly antalgic gait, as be expected. Right hip dressing remains in place. No saturation. No surrounding erythema. Thigh remained supple. Neurologic intact distally in the superficial and deep peroneal as well as plantar distribution. 2+ DP and PT pulse. Const Vital Signs, click to edit/add: Vital Signs - 24 hr 08/11/22 12:00 08/11/22 12:30 08/11/22 13:00 Temperature Pulse Rate [Right Brachial] Respiratory Rate Blood Pressure [Right Arm] 88/58 L 96/48 L 90/47 L Pulse Oximetry Oxygen Delivery Method Oxygen Flow Rate 08/11/22 13:30 08/11/22 14:00 08/11/22 15:06 Temperature Pulse Rate [Right Brachial] Respiratory Rate Blood Pressure [Right Arm] 108/52 L 106/47 L Pulse Oximetry 93 Oxygen Delivery Method Oxygen Flow Rate 08/11/22 15:06 08/11/22 15:06 08/11/22 15:30 Temperature 98.7 F Pulse Rate [Right Brachial] 86 Respiratory Rate 18 Blood Pressure [Right Arm] 86/43 L 92/57 L Pulse Oximetry 93 93 Oxygen Delivery Method Room Air Room Air Oxygen Flow Rate 08/11/22 16:00 08/11/22 16:30 08/11/22 17:00 Temperature Pulse Rate [Right Brachial] Respiratory Rate Blood Pressure [Right Arm] 89/59 L 90/59 L 90/67 Pulse Oximetry Oxygen Delivery Method Oxygen Flow Rate 08/11/22 17:30 08/11/22 18:00 08/11/22 18:30 Temperature Pulse Rate [Right Brachial] Respiratory Rate Blood Pressure [Right Arm] 98/66 101/89 101/67 Pulse Oximetry Oxygen Delivery Method Oxygen Flow Rate 08/11/22 20:00 08/11/22 22:00 08/11/22 22:30 Temperature 98.7 F Pulse Rate [Right Brachial] 85 71 68 Respiratory Rate 18 Blood Pressure [Right Arm] 109/78 116/56 L 104/54 L Pulse Oximetry 91 Oxygen Delivery Method Room Air Oxygen Flow Rate 08/11/22 23:00 08/11/22 23:00 08/11/22 23:00 Temperature 98.7 F Pulse Rate [Right Brachial] 76 Respiratory Rate 18 Blood Pressure [Right Arm] 108/61 Pulse Oximetry 92 92 92 Oxygen Delivery Method Room Air CPAP Room Air CPAP Oxygen Flow Rate 08/12/22 00:00 08/12/22 01:00 08/12/22 02:00 Temperature Pulse Rate [Right Brachial] 69 72 63 Respiratory Rate Blood Pressure [Right Arm] 94/42 L 95/69 108/57 L Pulse Oximetry Oxygen Delivery Method Oxygen Flow Rate 08/12/22 03:00 08/12/22 04:00 08/12/22 06:00 Temperature Pulse Rate [Right Brachial] 61 59 L 62 Respiratory Rate 18 Blood Pressure [Right Arm] 90/42 L 90/53 L 81/41 L Pulse Oximetry 95 Oxygen Delivery Method Nasal Cannula Oxygen Flow Rate 2 08/12/22 07:00 08/12/22 07:00 08/12/22 07:00 Temperature 98.7 F Pulse Rate [Right Brachial] 53 L Respiratory Rate 16 16 Blood Pressure [Right Arm] 90/48 L Pulse Oximetry 98 98 98 Oxygen Delivery Method Nasal Cannula Nasal Cannula Oxygen Flow Rate 2 2 08/12/22 07:00 Temperature Pulse Rate [Right Brachial] 53 L Respiratory Rate Blood Pressure [Right Arm] Pulse Oximetry Oxygen Delivery Method Oxygen Flow Rate Assessment and Plan Assessment and plan (1) Hypotension: Status: Acute (2) Closed fracture of neck of right femur: Problem details: 08/09/2022. Uncomplicated ORIF of the right valgus impacted femoral neck fracture -continue weightbear as tolerated operative right lower extremity. Range of motion as tolerated. No limitations restrictions. Would suggest walker for ambulation assistance. Status: Acute (3) Physical deconditioning: Problem details: sedentary lifestyle. Uses a walker. Getting home physical therapy. [facility] after hernia surgery in December 2021. Will likely benefit from ongoing therapy guidance whether at home or at a penitentiary facility. Status: Acute (4) Chronic diarrhea: Problem details: Longstanding chronic diarrhea. Nonbloody. Outpatient has had multiple normal stool studies. Recent flexible sigmoidoscopy with normal findings and biopsies June 2022. No diarrhea since surgery Status: Acute (5) Functional neurological symptom disorder with mixed symptoms: Problem details: Diplopia, falls, vertigo, blurry vision, tremor, numbness, tingling, speech difficulties. See Psychiatry records from [place], She sees Dr. Vasquez, neuropsychology, at [place]. She also sees Dr. Kory Mccloud, Neurology at [place], and Dr Inés MD psychiatry Status: Acute (6) Anxiety: Problem details: Prominent symptoms. Status: Acute (7) Irritable bowel syndrome: Status: Acute (8) Obstructive sleep apnea treated with continuous positive airway pressure (CPAP): Status: Chronic
--- NOTE | 2022-08-12 12:33 | PC.SOCIAL ---
Met with pt. to discuss discharge plans. Pt. will need a SNF at discharge and prefers placement in [place]. No beds are available at the [facility] or at the [facility]. [facility] has a bed and is assessing.
--- NOTE | 2022-08-12 14:47 | P.IMPN_ITS ---
Progress Note: A&P Assessment and plan (1) Hypotension: Problem details: Cause for the hypotension remains elusive. Testing for adrenal insufficiency is pending. Will continue to treat with low-dose prednisone and Florinef and now midodrine. Will continue to target a mean arterial pressure of 65. Continue to monitor for evidence of other causes of shock: hemorrhage, cardiogenic , sepsis, neurogenic Status: Acute (2) Closed fracture of neck of right femur: Problem details: 08/09/2022. Uncomplicated ORIF of the right valgus impacted femoral neck fracture -continue weightbear as tolerated operative right lower extremity. Range of motion as tolerated. No limitations restrictions. Would suggest walker for ambulation assistance. Status: Acute (3) Physical deconditioning: Problem details: sedentary lifestyle. Uses a walker. Getting home physical therapy. Was in a long term home for rehab for 45 days after hernia surgery in December 2021. Will likely benefit from ongoing therapy guidance whether at home or at a long term facility. Status: Acute (4) Chronic diarrhea: Problem details: Longstanding chronic diarrhea. Nonbloody. Outpatient has had multiple normal stool studies. Recent flexible sigmoidoscopy with normal findings and biopsies June 2022. No diarrhea since surgery Status: Acute (5) Functional neurological symptom disorder with mixed symptoms: Problem details: Diplopia, falls, vertigo, blurry vision, tremor, numbness, tingling, speech difficulties. See Psychiatry records from [place], She sees Dr. Vasquez, neuropsychology, at [place]. She also sees Dr. Kory Mccloud, Neurology at [place], and Dr Inés MD psychiatry Status: Acute (6) Anxiety: Problem details: Prominent symptoms. Status: Acute (7) Irritable bowel syndrome: Status: Acute (8) Obstructive sleep apnea treated with continuous positive airway pressure (CPAP): Status: Chronic Plan Continue in hospital for postoperative cares and evaluation management of hypotension. Anticipate discharge to long term facility in 2-3 days. Time Spent With Patient Total time spent: Total time spent today is 40 minutes, 25 minutes in coordination of care and discussing with patient and other providers ongoing management of hypotension and disposition. Subjective Date Seen: 08/12/22 Interval history: Patient seen in followup of fall with impacted right femoral neck fracture status post ORIF day 2. She is doing better in terms of mobility and managing pain and anxiety. She continues to however be hypotensive. She was requiring norepinephrine infusion postoperatively. That was discontinued yesterday but she is still borderline hypotensive. Because of concern of adrenal insufficiency she was started on hydrocortisone and Florinef. Now midodrine has been added. Ongoing evaluation has shown no evidence of an acute condition causing shock. She is not having problems with lightheadedness. Her vitals are normal. She is not tachycardic. Her urine output is excellent. Exam Narrative: Exam Narrative: She is alert and appears in no distress. Speech is normal. Eyes are normal. She is oriented to her circumstances. Respirations are clear to auscultation. Cardiovascular: S1, S2, regular rate and rhythm. No murmur gallop or rub. Abdomen: Bowel sounds active. Abdomen is soft without tenderness or mass. Extremities without significant edema. She has intact pedal pulses. She moves all 4 extremities well. No significant erythema, bruising or drainage around her surgical area. Const: Vital Signs, click to edit/add: Vital Signs - 24 hr 08/11/22 15:06 08/11/22 15:06 08/11/22 15:06 Temperature 98.7 F Pulse Rate [Right Brachial] 86 Respiratory Rate 18 Blood Pressure [Ri ght Arm] 86/43 L Pulse Oximetry 93 93 93 Oxygen Delivery Me thod Room Air Room Air Oxygen Flow Rate 08/11/22 15:30 08/11/22 16:00 08/11/22 16:30 Temperature Pulse Rate [Right Brachial] Respiratory Rate Blood Pressure [Ri ght Arm] 92/57 L 89/59 L 90/59 L Pulse Oximetry Oxygen Delivery Me thod Oxygen Flow Rate 08/11/22 17:00 08/11/22 17:30 08/11/22 18:00 Temperature Pulse Rate [Right Brachial] Respiratory Rate Blood Pressure [Ri ght Arm] 90/67 98/66 101/89 Pulse Oximetry Oxygen Delivery Me thod Oxygen Flow Rate 08/11/22 18:30 08/11/22 20:00 08/11/22 22:00 Temperature 98.7 F Pulse Rate [Right Brachial] 85 71 Respiratory Rate 18 Blood Pressure [Ri ght Arm] 101/67 109/78 116/56 L Pulse Oximetry 91 Oxygen Delivery Me thod Room Air Oxygen Flow Rate 08/11/22 22:30 08/11/22 23:00 08/11/22 23:00 Temperature 98.7 F Pulse Rate [Right Brachial] 68 76 Respiratory Rate 18 Blood Pressure [Ri ght Arm] 104/54 L 108/61 Pulse Oximetry 92 92 Oxygen Delivery Me thod Room Air CPAP Oxygen Flow Rate 08/11/22 23:00 08/12/22 00:00 08/12/22 01:00 Temperature Pulse Rate [Right Brachial] 69 72 Respiratory Rate Blood Pressure [Ri ght Arm] 94/42 L 95/69 Pulse Oximetry 92 Oxygen Delivery Me thod Room Air CPAP Oxygen Flow Rate 08/12/22 02:00 08/12/22 03:00 08/12/22 04:00 Temperature Pulse Rate [Right Brachial] 63 61 59 L Respiratory Rate 18 Blood Pressure [Ri ght Arm] 108/57 L 90/42 L 90/53 L Pulse Oximetry 95 Oxygen Delivery Me thod Nasal Cannula Oxygen Flow Rate 2 08/12/22 06:00 08/12/22 07:00 08/12/22 07:00 Temperature 98.7 F Pulse Rate [Right Brachial] 62 53 L Respiratory Rate 16 Blood Pressure [Ri ght Arm] 81/41 L 90/48 L Pulse Oximetry 98 98 Oxygen Delivery Me thod Nasal Cannula Oxygen Flow Rate 2 08/12/22 07:00 08/12/22 07:00 08/12/22 11:00 Temperature 98.5 F Pulse Rate [Right Brachial] 53 L 76 Respiratory Rate 16 16 Blood Pressure [Ri ght Arm] 91/63 Pulse Oximetry 98 92 Oxygen Delivery Me thod Nasal Cannula Room Air Oxygen Flow Rate 2 08/12/22 14:24 08/12/22 14:24 08/12/22 14:24 Temperature 97.4 F L Pulse Rate [Right Brachial] 86 Respiratory Rate 16 16 Blood Pressure [Ri ght Arm] 106/40 L Pulse Oximetry 95 95 95 Oxygen Delivery Me thod Room Air Room Air Oxygen Flow Rate Documenting provider has reviewed patient's vital signs: yes Labs Labs: Laboratory Results - last 24 hr 08/12/22 06:13 WBC 7.68 RBC 2.99 L Hgb 9.5 L Hct 28.4 L MCV 95 MCH 32 MCHC 34 RDW Coeff of Quirino 12.2 Plt Count 165 Neut % (Auto) 82.4 H Lymph % (Auto) 10.2 L Dale % (Auto) 7.0 Eos % (Auto) 0.0 Baso % (Auto) 0.3 Neut # (Auto) 6.30 Lymph # (Auto) 0.80 L Dale # (Auto) 0.50 Eos # (Auto) 0.00 Baso # (Auto) 0.02 TSH 0.555
--- NOTE | 2022-08-12 16:24 | PC.NURSE ---
PATIENT PLEASANT AND COOPERATIVE, UP A1 WITH WALKER AND BELT AND TOLERATING WALKING TO THE BATHROOM, RATING PAIN 4/10 AT REST OR WITH SLIGHT MOVEMENT IN RIGHT HIP, RATING PAIN IN RIGHT HIP 6/10 WITH MOVEMENT, BEING MANAGED WITH PRN OXYCODONE AND ICE TO SITE, DTR PRESENT AND SUPPORTIVE, B/PS REMAIN SOFT SEE VITAL SIGNS CHARTING, MD AWARE WITH NO CHANGES, PATIENT DECLINING ANY LIGHTHEADEDNESS OR DIZZINESS AT REST OR WITH MOVEMENT, DRESSING TO RIGHT HIP CDI, TOLERATING REGULAR DIET.
[2022-08-12] MEDS: predniSONE 10 MG TABLET PO (17:32)
[2022-08-12] MEDS: SENNOSIDES 1 TAB TABLET 2 TAB PO (21:39)
[2022-08-12] MEDS: TRAZODONE HCL 50 MG TABLET 75 MG PO (21:39)
[2022-08-12] MEDS: MONTELUKAST 10 MG TABLET PO (21:41)
[2022-08-13 03:00] VITALS: BP 106/54; PULSE 74; RESP 16; TEMP 36.3; O2SAT 94
[2022-08-13] MEDS: OXYCODONE 5 MG TABLET PO ×5 (03:32→20:37)
--- NOTE | 2022-08-13 06:34 | PC.NURSE ---
[id number] Shift Summary? CCU2 T.H. 67 Fall, R hip? Hx: Homebound, Neuro-muscular disorder, PTSD, anxiety, BPD, irritable bowel syndrome, KIRSTIN (CPAP), asthma, hiatal hernia repair ? Pt?s pain was managed overnight. 7-12/08 pain treated with oxy 5-10mg, ice packs. And positioning. Up to BR x2 to void with walker and Ao1. On room air, sating well. Declined use of CPap. Continuous pulse ox DCed. Cortisol drawn at 0645, lab to deliver med at 0715, and redraw is at 0745 (from technical report writer?s understanding). Will call to confirm with lab. Pt has not had BM in several days. Took 1 of her senna. BPs soft overnight. ?
[2022-08-13 07:03] LABS: Basophils Absolute Auto 0.03 K/uL (0.00-0.30); Basophils Percent Auto 0.4 % (0.0-3.0); Eosinophils Absolute Auto 0.03 K/uL (0.00-0.50); Eosinophils Percent Auto 0.4 % (0.0-7.0); Hematocrit 28.9 % (33.0-51.0); Hemoglobin* 9.6 gm/dL (12.0-16.0); Immature Granulocytes Abs Auto 0.02 K/uL (0.00-0.30); Immature Granulocytes Pct Auto 0.3 %; Lymphocytes Absolute Auto 1.82 K/uL (0.90-2.90); Lymphocytes Percent Auto 24.7 % (20-44); Mean Corpuscular HGB Conc 33 gm/dL (32-36); Mean Corpuscular Hemoglobin 32 pg (26-34); Mean Corpuscular Volume 95 fL (80-100); Monocytes Percent Auto 8.8 % (0.0-11.0); Neutrophils Absolute Auto 4.83 K/uL (1.7-7.0); Neutrophils Percent Auto 65.4 % (42.0-72.0); Platelet Count* 196 K/uL (140-440); RDW Coefficient of Variation % 12.4 % (11.5-15.5); Red Blood Count 3.05 m/uL (4.00-5.20); White Blood Count* 7.38 K/uL (4.50-11.00)
[2022-08-13 07:08] LABS: Slide Review Reflex No
[2022-08-13] MEDS: COSYNTROPIN 0.25 MG VIAL IVP (07:21)
[2022-08-13] MEDS: OMEPRAZOLE 20 MG CAPSULE DR 40 MG PO (07:23)
[2022-08-13 07:35] VITALS: BP 117/60; PULSE 70; RESP 16; TEMP 36.6; O2SAT 97
[2022-08-13] MEDS: predniSONE 10 MG TABLET PO ×2 (07:50→17:58)
--- NOTE | 2022-08-13 08:13 | P.ORPN_ITS ---
Subjective Subjective Time Seen by Provider: 08:14 Date Seen: 08/13/22 Principal diagnosis: Right femoral neck fracture ORIF 08/10/2022 Interval history: Patient is comfortable at rest in her bed. She states she is weak but has been ambulating in her room with a walker. Ortho Exam Narrative Exam Narrative: Alert and oriented x3. Patient is in no acute distress. Converses without labored breathing. Hearing is grossly intact. Examination of the right lower extremity shows dressing is intact. Mild soft tissue edema about the hip. No foot drop. DP and PT pulses 2+. Sensation intact right lower extremity. Bilateral calves are soft and nontender. Const Vital Signs, click to edit/add: Vital Signs - 24 hr 08/12/22 11:00 08/12/22 14:24 08/12/22 14:24 Temperature 98.5 F Pulse Rate [Pulse Oximeter] Pulse Rate [Right Brachial] 76 Respiratory Rate 16 16 Blood Pressure [Right Arm] 91/63 Pulse Oximetry 92 95 95 Oxygen Delivery Method Room Air Room Air 08/12/22 14:24 08/12/22 21:25 08/12/22 23:00 Temperature 97.4 F L 97.5 F L Pulse Rate [Pulse Oximeter] Pulse Rate [Right Brachial] 86 87 Respiratory Rate 16 16 Blood Pressure [Right Arm] 106/40 L 103/38 L Pulse Oximetry 95 93 96 Oxygen Delivery Method Room Air Room Air Room Air 08/12/22 23:00 08/13/22 03:00 Temperature 97.3 F L Pulse Rate [Pulse Oximeter] 74 74 Pulse Rate [Right Brachial] 87 Respiratory Rate 16 16 Blood Pressure [Right Arm] 106/54 L Pulse Oximetry 94 Oxygen Delivery Method Room Air Assessment and Plan Assessment and plan (1) Hypotension: Problem details: Cause for the hypotension remains elusive. Testing for adrenal insufficiency is pending. Will continue to treat with low-dose prednisone and Florinef and now midodrine. Will continue to target a mean arterial pressure of 65. Continue to monitor for evidence of other causes of shock: hemorrhage, cardiogenic , sepsis, neurogenic Status: Acute (2) Closed fracture of neck of right femur: Problem details: 08/09/2022. Uncomplicated ORIF of the right valgus impacted femoral neck fracture -continue weightbear as tolerated operative right lower extremity. Range of motion as tolerated. No limitations restrictions. Would suggest walker for ambulation assistance. Status: Acute Assessment and Plan: Patient will likely discharge to [facility] tomorrow. She asks about her Ativan and Adderall. I spoke with Dr. Romano about this. She will have her daughter bring her Adderall to the hospital. This is not a medication we keep on hand. She cannot take Ativan with her oxycodone. Her nurse Oanh has given her aroma therapy patch to assist with her anxiety. She is encouraged to continue strengthening while she is lying in bed upper extremities and left lower extremity she can do on her own. She does not have much interest in this. She is encouraged to work hard with physical therapy and on her own to gain her strength back and become more independent. Continue Weightbear as tolerated right lower extremity. Continue PT and OT (3) Physical deconditioning: Problem details: sedentary lifestyle. Uses a walker. Getting home physical therapy. Was in a care home home for rehab for 45 days after hernia surgery in December 2021. Will likely benefit from ongoing therapy guidance whether at home or at a care home facility. Status: Acute (4) Chronic diarrhea: Problem details: Longstanding chronic diarrhea. Nonbloody. Outpatient has had multiple normal stool studies. Recent flexible sigmoidoscopy with normal findings and biopsies June 2022. No diarrhea since surgery Status: Acute (5) Functional neurological symptom disorder with mixed symptoms: Problem details: Diplopia, falls, vertigo, blurry vision, tremor, numbness, tingling, speech difficulties. See Psychiatry records from [place], She sees Dr. Vasquez, neuropsychology, at [place]. She also sees Dr. Kory Mccloud, Neurology at [place], and Dr Inés MD psychiatry Status: Acute (6) Anxiety: Problem details: Prominent symptoms. Status: Acute (7) Irritable bowel syndrome: Status: Acute (8) Obstructive sleep apnea treated with continuous positive airway pressure (CPAP): Status: Chronic
[2022-08-13] MEDS: DIVALPROEX SODIUM 125 MG CAP.DR.SPR 375 MG PO ×2 (08:36→20:41)
[2022-08-13] MEDS: VENLAFAXINE ER 75 MG CAPSULE 225 MG PO (08:37)
[2022-08-13] MEDS: SENNOSIDES 1 TAB TABLET 2 TAB PO ×2 (08:37→20:39)
[2022-08-13] MEDS: RIVAROXABAN 10 MG TABLET PO (08:38)
[2022-08-13] MEDS: FLUDROCORTISONE ACETATE 0.1 MG TABLET PO (08:38)
[2022-08-13] MEDS: MIDODRINE HCL 5 MG TABLET PO ×2 (08:39→20:39)
[2022-08-13] MEDS: SODIUM CHLORIDE 0.9 % (FLUSH) 10 ML SYRINGE IVF (08:54)
[2022-08-13 11:20] VITALS: BP 117/68; PULSE 73; RESP 16; TEMP 37.1; O2SAT 95
--- NOTE | 2022-08-13 13:41 | PM.IMPN1 ---
Progress Note: A&P Assessment and plan (1) Hypotension: Problem details: Cause for the hypotension remains elusive. Testing for adrenal insufficiency is pending. Will continue to treat with low-dose prednisone and Florinef and now midodrine. Will continue to target a mean arterial pressure of 65. Continue to monitor for evidence of other causes of shock: hemorrhage, cardiogenic , sepsis, neurogenic Status: Acute (2) Closed fracture of neck of right femur: Problem details: 08/09/2022. Uncomplicated ORIF of the right valgus impacted femoral neck fracture -continue weightbear as tolerated operative right lower extremity. Range of motion as tolerated. No limitations restrictions. Would suggest walker for ambulation assistance. [facility] facility for rehab pending Status: Acute (3) Physical deconditioning: Problem details: sedentary lifestyle. Uses a walker. Getting home physical therapy. Was in a custodial home for rehab for 45 days after hernia surgery in December 2021. Will likely benefit from ongoing therapy guidance whether at home or at a custodial facility. Status: Acute (4) Chronic diarrhea: Problem details: Longstanding chronic diarrhea. Nonbloody. Outpatient has had multiple normal stool studies. Recent flexible sigmoidoscopy with normal findings and biopsies June 2022. No diarrhea since surgery Status: Acute (5) Functional neurological symptom disorder with mixed symptoms: Problem details: Diplopia, falls, vertigo, blurry vision, tremor, numbness, tingling, speech difficulties. See Psychiatry records from [place], She sees Dr. Vasquez, neuropsychology, at [place]. She also sees Dr. Kory Mccloud, Neurology at [place], and Dr Inés MD psychiatry Status: Acute (6) Anxiety: Problem details: Prominent symptoms. Status: Acute (7) Irritable bowel syndrome: Status: Acute (8) Obstructive sleep apnea treated with continuous positive airway pressure (CPAP): Problem details: Continue CPAP Status: Chronic Plan Continue management of hypotension postoperatively. Anticipate safe discharge to custodial facility tomorrow if blood pressures adequate. Will need follow-up of adrenal testing next week. Time Spent With Patient Total time spent: Total time spent today is 40 minutes, 30 minutes in coordination of care discussing with patient and other providers management of hypotension, evaluation of adrenal insufficiency and rehab for hip fracture Subjective Date Seen: 08/13/22 Interval history: 67-year-old female seen in followup of ORIF of right impacted femoral neck fracture. She is doing better. With encouragement she is participating with therapy. Pain control is improved. She has no specific concerns today. Her blood pressure has improved modestly today. She is consistently above 100 systolic now with prednisone, Florinef, midodrine. Cortisol level and ACTH testing are pending. She reports no lightheadedness when she is up with therapy. He is not having palpitations or chest pain. Vital signs are otherwise normal. She has had no fever cough chest pain abdominal pain vomiting diarrhea. Exam Narrative: Exam Narrative: She is alert and appears in no distress. Speech is normal. Respirations are clear to auscultation. Cardiovascular: S1, S2, regular rate and rhythm. No murmur gallop or rub. Abdomen: Bowel sounds active. Abdomen is soft without tenderness or mass. She is tender over her right hip. That areas without erythema or drainage. Distally she has intact pulses and sensation in her feet and ankles bilaterally. Const: Vital Signs, click to edit/add: Vital Signs - 24 hr 08/12/22 14:24 08/12/22 14:24 08/12/22 14:24 Temperature 97.4 F L Pulse Rate [Left A pical] Pulse Rate [Pulse Oximeter] Pulse Rate [Right Brachial] 86 Respiratory Rate 16 16 Blood Pressure [Ri ght Arm] 106/40 L Pulse Oximetry 95 95 95 Oxygen Delivery [facility] Room Air Room Air 08/12/22 21:25 08/12/22 23:00 08/12/22 23:00 Temperature 97.5 F L Pulse Rate [Left A pical] Pulse Rate [Pulse Oximeter] 74 Pulse Rate [Right Brachial] 87 87 Respiratory Rate 16 16 Blood Pressure [Ri ght Arm] 103/38 L Pulse Oximetry 93 96 Oxygen Delivery [facility] Room Air Room Air 08/13/22 03:00 08/13/22 07:35 08/13/22 07:35 Temperature 97.3 F L 98 F Pulse Rate [Left A pical] 70 Pulse Rate [Pulse Oximeter] 74 70 Pulse Rate [Right Brachial] Respiratory Rate 16 16 16 Blood Pressure [Ri ght Arm] 106/54 L 117/60 Pulse Oximetry 94 97 97 Oxygen Delivery [facility] Room Air Room Air Room Air 08/13/22 11:20 Temperature 98.7 F Pulse Rate [Left A pical] 73 Pulse Rate [Pulse Oximeter] 73 Pulse Rate [Right Brachial] Respiratory Rate 16 Blood Pressure [Ri ght Arm] 117/68 Pulse Oximetry 95 Oxygen Delivery Me thod Room Air Documenting provider has reviewed patient's vital signs: yes Labs Labs: Laboratory Results - last 24 hr 08/13/22 06:55 WBC 7.38 RBC 3.05 L Hgb 9.6 L Hct 28.9 L MCV 95 MCH 32 MCHC 33 RDW Coeff of Quirino 12.4 Plt Count 196 Neut % (Auto) 65.4 Lymph % (Auto) 24.7 Schley % (Auto) 8.8 Eos % (Auto) 0.4 Baso % (Auto) 0.4 Neut # (Auto) 4.83 Lymph # (Auto) 1.82 Schley # (Auto) 0.60 Eos # (Auto) 0.03 Baso # (Auto) 0.03
--- NOTE | 2022-08-13 14:34 | PC.NURSE ---
Pt rating her pain 4-9 out of 10 depending on activity levels. Aromatherapy patch calmed her anxiety. Adderall is not available from the pharmacy and Dr. Romano did not wish to combine ativan with her oxycodone for pain. Eval by Shelly Jennings, PT and OT. Plan Van transfer to [facility] tomorrow at 10 am. Pt needs positive encouragement to mobilize out of her bed. She is using blue leg procedure analyst to help her maneuver her right leg.
--- NOTE | 2022-08-13 14:58 | PC.SOCIAL ---
Addendum entered by FATUMA Rodriguez 08/13/22 15:42: PAS Completed # [id number]. Original Note: Pt. has been accepted to [address] [place] [address] for tomorrow. Contacted [facility] for transportation authorization and they could not find a transport company to accommodate so pt. will transport at 10am via non-emergency EMS.
[2022-08-13 15:00] VITALS: BP 128/66; PULSE 75; RESP 14; TEMP 36.6; O2SAT 95
[2022-08-13 19:00] VITALS: BP 100/55; PULSE 81; RESP 14; TEMP 36.2; O2SAT 93
[2022-08-13] MEDS: TRAZODONE HCL 50 MG TABLET 75 MG PO (20:39)
[2022-08-13] MEDS: MONTELUKAST 10 MG TABLET PO (20:41)
--- NOTE | 2022-08-13 22:00 | PC.NURSE ---
End of Shift Summary: Pt pleasant and cooperative throughout shift. Pain reported between 3-7/10 on right hip, improved with PRN medication, ice pack, and aromatherapy. Consumed 100% of meal. Ice pack and PRN meds administered, pain improved. Pt ambulates with walker, gait belt, and SBA. Pt transferring to [facility] for rehab tomorrow.
[2022-08-13 23:00] VITALS: RESP 14; RESP 16; O2SAT 97
[2022-08-14] MEDS: OXYCODONE 5 MG TABLET PO ×4 (01:37→10:13)
[2022-08-14 01:39] VITALS: BP 107/56; PULSE 58; RESP 16; TEMP 36.6; O2SAT 97
[2022-08-14 04:15] VITALS: BP 119/62; PULSE 52; RESP 18; TEMP 36.4; O2SAT 93
[2022-08-14 06:44] LABS: Basophils Absolute Auto 0.02 K/uL (0.00-0.30); Basophils Percent Auto 0.3 % (0.0-3.0); Eosinophils Absolute Auto 0.02 K/uL (0.00-0.50); Eosinophils Percent Auto 0.3 % (0.0-7.0); Hematocrit 29.6 % (33.0-51.0); Hemoglobin* 9.7 gm/dL (12.0-16.0); Immature Granulocytes Abs Auto 0.03 K/uL (0.00-0.30); Immature Granulocytes Pct Auto 0.4 %; Lymphocytes Percent Auto 21.7 % (20-44); Mean Corpuscular HGB Conc 33 gm/dL (32-36); Mean Corpuscular Hemoglobin 32 pg (26-34); Mean Corpuscular Volume 96 fL (80-100); Monocytes Percent Auto 8.8 % (0.0-11.0); Neutrophils Absolute Auto 5.07 K/uL (1.7-7.0); Neutrophils Percent Auto 68.5 % (42.0-72.0); Platelet Count* 204 K/uL (140-440); RDW Coefficient of Variation % 12.6 % (11.5-15.5); Red Blood Count 3.08 m/uL (4.00-5.20); White Blood Count* 7.39 K/uL (4.50-11.00)
[2022-08-14 06:58] LABS: Slide Review Reflex No
[2022-08-14 07:00] VITALS: BP 127/68; PULSE 69; RESP 12; TEMP 36.6; O2SAT 94
[2022-08-14] MEDS: OMEPRAZOLE 20 MG CAPSULE DR 40 MG PO (07:26)
--- NOTE | 2022-08-14 07:41 | PC.NURSE ---
[id number] Shift Summary?? CCU2 T.H. 67 Fall, R hip?? Hx: Homebound, Neuro-muscular disorder, PTSD, anxiety, BPD, irritable bowel syndrome, KIRSTIN (CPAP), asthma, hiatal hernia repair?? Pt was still in pain overnight. Requesting 10mg oxy at 0130 and 0430. Utilzing ice as well. Tenting R leg with pillow despite education. Walked to BR with walker and AO1 x2. No BM. On room air. BPs soft but improving. Slept between cares. Plans to DC to [facility] today @ 10. Anxious about daughter?s surgery next month and where her healing will be by then. No nausea. In the recliner for breakfast.
[2022-08-14] MEDS: DIVALPROEX SODIUM 125 MG CAP.DR.SPR 375 MG PO (08:51)
[2022-08-14] MEDS: SENNOSIDES 1 TAB TABLET 2 TAB PO (08:52)
[2022-08-14] MEDS: RIVAROXABAN 10 MG TABLET PO (08:52)
[2022-08-14] MEDS: VENLAFAXINE ER 75 MG CAPSULE 225 MG PO (08:52)
[2022-08-14] MEDS: FLUDROCORTISONE ACETATE 0.1 MG TABLET PO (08:52)
[2022-08-14] MEDS: predniSONE 10 MG TABLET PO (08:53)
[2022-08-14 09:00] VITALS: BP 107/51; BP 96/34; BP 99/56; PULSE 77; PULSE 85; PULSE 98
[2022-08-14 09:41] VITALS: BP 83/55; PULSE 76; RESP 12; TEMP 36.6
--- NOTE | 2022-08-14 09:52 | PM.DS1 ---
DS: Providers Provider Date Seen: 08/14/22 Date of admission: 08/09/22 16:08 Primary care physician: Angi Estevez DO Admitting Clinician: Zohaib Romano MD Attending Physician on discharge: Zohaib Romano MD Date of Discharge: 08/14/22 DS: Diagnosis Discharge Diagnosis (1) Closed fracture of neck of right femur: Status: Acute Problem details: 08/09/2022. Uncomplicated ORIF of the right valgus impacted femoral neck fracture -continue weightbear as tolerated operative right lower extremity. Range of motion as tolerated. No limitations restrictions. Would suggest walker for ambulation assistance. assisted facility for rehab pending (2) Hypotension: Status: Acute Problem details: Patient has chronically relatively low blood pressure. On presentation to the hospital she had low blood pressure thought secondary to hip fracture and acute blood loss. Her hemoglobin prior to this admission was 12. Her hemoglobin dropped to 9.7 on discharge today. She underwent ORIF of her femur fracture without significant blood loss. Postoperatively she required norepinephrine to maintain her blood pressure with a map of 65. Evaluation for acute cause of shock such as cardiogenic, septic, obstructive, neurogenic was unremarkable. Cause for the hypotension remains elusive. Testing for adrenal insufficiency is pending. Her a.m. cortisol was 8. This is in the low indeterminate range. Cosyntropin stim test is pending. She has been treated with steroids and Florinef for presumed adrenal insufficiency and midodrine was also added. She has remained clinically well appearing but still having relatively low blood pressures. If cosyntropin stim testing does not support a diagnosis of adrenal insufficiency would taper her off steroids. Probably needs outpatient follow-up with endocrinology and possibly Cardiology or Neurology depending on her clinical course. Also recommend support hose and weaning down opioids. (3) Physical deconditioning: Status: Acute Problem details: sedentary lifestyle. Uses a walker. Getting home physical therapy. Was in a shelter home for rehab for 45 days after hernia surgery in December 2021. Will likely benefit from ongoing therapy guidance whether at home or at a shelter facility. (4) Chronic diarrhea: Status: Acute Problem details: Longstanding chronic diarrhea. Nonbloody. Outpatient has had multiple normal stool studies. Recent flexible sigmoidoscopy with normal findings and biopsies June 2022. No diarrhea since surgery (5) Anxiety: Status: Acute Problem details: Prominent symptoms. (6) Functional neurological symptom disorder with mixed symptoms: Status: Acute Problem details: Diplopia, falls, vertigo, blurry vision, tremor, numbness, tingling, speech difficulties. See Psychiatry records from [place], She sees Dr. Vasquez, neuropsychology, at [place]. She also sees Dr. Kory Mccloud, Neurology at [place], and Dr Inés MD psychiatry (7) Obstructive sleep apnea treated with continuous positive airway pressure (CPAP): Status: Chronic Problem details: Continue CPAP DS: Summary Hospital Course Hospital Course: 67-year-old female admitted to the hospital after a fall at home. She was found to have a right impacted femoral neck fracture. She was taken to the OR for ORIF. Her whole hospitalization has been complicated by hypotension. On admission her hypotension was thought due to blood loss from her fracture. She received fluid resuscitation. In the OR she continued to have hypotension and in addition to fluids she also received pressors. After leaving the OR she was hypotensive and remained on a norepinephrine drip to support her blood pressure. Her hemoglobin in May was 12.7. On admission to the hospital 10.3. On discharge 9.7. It is felt that this amount of blood loss does not account for her hypotension. Because of this there was concern she had a chronic problem such as adrenal insufficiency. She was treated with IV then oral steroids. An a.m. cortisol level of 8 was obtained. This is in the borderline low range of normal. Because of this a cosyntropin stim test was obtained and the results for that are pending. In the meantime she remains on prednisone, Florinef and now midodrine to support her blood pressure. Through all of this the patient has been doing well. There is no sign of infection or sepsis. She has had excellent urine output. She has not been feeling lightheaded. She has not had altered mental status. Her vitals other than her blood pressure been normal. She has not been tachycardic. Continue blood pressure support with prednisone, Florinef and midodrine. If her cosyntropin stim test does not support a diagnosis of adrenal insufficiency her prednisone should be tapered off. Likely we need outpatient follow-up for further evaluation of her hypotension. Status at Discharge Cognitive/behavioral status at discharge: Back to baseline Functional status at discharge: uses cane/walker Overall status at discharge: patient is progressing back to baseline Time Spent with Patient Time attestation: Total time spent providing and/or coordinating discharge services: Time spent: Greater than 30 minutes Exam Narrative: Exam Narrative: She is alert and appears in no distress. Respirations are clear to auscultation. Cardiovascular: S1, S2, regular rate and rhythm. No murmur gallop or rub. Abdomen: Bowel sounds active. Abdomen is soft without tenderness or mass. Const: Vital Signs, click to edit/add: Vital Signs - 24 hr 08/13/22 11:20 08/13/22 15:00 08/13/22 15:00 Temperature 98.7 F 98 F Pulse Rate Pulse Rate [Left A pical] 73 Pulse Rate [Pulse Oximeter] 73 75 Pulse Rate [orthos tatic lying] Pulse Rate [orthos tatic sitting] Pulse Rate [orthos tatic standing] Respiratory Rate 16 14 Blood Pressure Blood Pressure [Le ft Arm] Blood Pressure [Ri ght Arm] 117/68 128/66 Blood Pressure [or thostatic lying] Blood Pressure [or thostatic sitting] Blood Pressure [or thostatic standing ] Pulse Oximetry 95 95 95 Oxygen Delivery Me thod Room Air Room Air Room Air 08/13/22 19:00 08/13/22 23:00 08/13/22 23:00 Temperature 97.2 F L Pulse Rate Pulse Rate [Left A pical] Pulse Rate [Pulse Oximeter] 81 Pulse Rate [orthos tatic lying] Pulse Rate [orthos tatic sitting] Pulse Rate [orthos tatic standing] Respiratory Rate 14 14 16 Blood Pressure Blood Pressure [Le ft Arm] Blood Pressure [Ri ght Arm] 100/55 L Blood Pressure [or thostatic lying] Blood Pressure [or thostatic sitting] Blood Pressure [or thostatic standing ] Pulse Oximetry 93 Oxygen Delivery Me thod Room Air Room Air 08/13/22 23:00 08/14/22 01:39 08/14/22 04:15 Temperature 97.9 F 97.5 F L Pulse Rate Pulse Rate [Left A pical] 58 L Pulse Rate [Pulse Oximeter] 52 L Pulse Rate [orthos tatic lying] Pulse Rate [orthos tatic sitting] Pulse Rate [orthos tatic standing] Respiratory Rate 16 16 18 Blood Pressure Blood Pressure [Le ft Arm] Blood Pressure [Ri ght Arm] 107/56 L 119/62 Blood Pressure [or thostatic lying] Blood Pressure [or thostatic sitting] Blood Pressure [or thostatic standing ] Pulse Oximetry 97 97 93 Oxygen Delivery Me thod Room Air Room Air 08/14/22 07:00 08/14/22 07:00 08/14/22 07:00 Temperature 98 F Pulse Rate Pulse Rate [Left A pical] Pulse Rate [Pulse Oximeter] 69 69 Pulse Rate [orthos tatic lying] Pulse Rate [orthos tatic sitting] Pulse Rate [orthos tatic standing] Respiratory Rate 12 12 12 Blood Pressure Blood Pressure [Le ft Arm] 127/68 Blood Pressure [Ri ght Arm] Blood Pressure [or thostatic lying] Blood Pressure [or thostatic sitting] Blood Pressure [or thostatic standing ] Pulse Oximetry 94 94 Oxygen Delivery Me thod Room Air Room Air 08/14/22 09:00 08/14/22 09:41 Temperature 98 F Pulse Rate 76 Pulse Rate [Left A pical] Pulse Rate [Pulse Oximeter] Pulse Rate [orthos tatic lying] 77 Pulse Rate [orthos tatic sitting] 85 Pulse Rate [orthos tatic standing] 98 Respiratory Rate 12 Blood Pressure 83/55 L Blood Pressure [Le ft Arm] Blood Pressure [Ri ght Arm] Blood Pressure [or thostatic lying] 107/51 L Blood Pressure [or thostatic sitting] 99/56 L Blood Pressure [or thostatic standing ] 96/34 L Pulse Oximetry Oxygen Delivery Me thod Documenting provider has reviewed patient's vital signs: yes DS: Data Data Completed and Pending Pending studies at discharge: Cosyntropin (ACTH)stim test results Labs on day of discharge: Labs from last 24 hours 08/14/22 08/11/22 06:23 06:13 WBC 7.39 RBC 3.08 L Hgb 9.7 L Hct 29.6 L MCV 96 MCH 32 MCHC 33 RDW Coeff of Quirino 12.6 Plt Count 204 Neut % (Auto) 68.5 Lymph % (Auto) 21.7 [place] % (Auto) 8.8 Eos % (Auto) 0.3 Baso % (Auto) 0.3 Neut # (Auto) 5.07 Lymph # (Auto) 1.60 [place] # (Auto) 0.70 Eos # (Auto) 0.02 Baso # (Auto) 0.02 Cortisol 8.0 Discharge Plan Discharge Disposition: Xfer [facility] Date of Admission: 08/09/22 16:08 Attending Provider on Discharge: Zohaib Romano Primary Care Provider: Angi Estevez Condition: Stable Discharge Medications: New midodrine 5 mg Tablet 5 mg PO BID Qty: 60 0RF fludrocortisone 0.1 mg Tablet 0.1 mg PO DAILY Qty: 30 0RF oxycodone 5 mg capsule 5 mg PO Q4H PRN (Reason: pain) Qty: 30 0RF prednisone 5 mg tablet 10 mg PO BIDWM Qty: 30 0RF Rx Instructions: Take 2 tablets in the morning(10mg) and 1 tablet with evening meal (5 mg) Continued montelukast 10 mg tablet 10 mg PO HS divalproex 500 mg tablet,delayed release (DR/EC) 500 mg PO HS loperamide 2 mg capsule 4 mg PO QID PRN meclizine 25 mg tablet 25 mg PO BID PRN albuterol sulfate 90 mcg/actuation HFA aerosol inhaler 1 puff INHALATION Q4H PRN Patient Comments: PLEASE SEE ATTACHED FOR DETAILED DIRECTIONS lorazepam 0.5 mg tablet 0.5 mg PO DAILY PRN trazodone 150 mg tablet 75 mg PO QPM cevimeline 30 mg capsule 1 cap PO BID Patient Comments: can use 1 cap at noon prn guanfacine 1 mg tablet 1 mg PO QPM divalproex 125 mg capsule, delayed rel sprinkle 500 mg PO BID omeprazole 40 mg capsule,delayed release(DR/EC) 40 mg PO DAILY venlafaxine 150 mg capsule,extended release 24hr 300 mg PO DAILY dicyclomine 10 mg capsule 10 mg PO Q6H PRN (Reason: cramps) sennosides-docusate sodium [Senna with Docusate Sodium] 8.6-50 mg tablet 1 tab-cap PO BID PRN ondansetron HCl 8 mg tablet 8 mg PO TID PRN Discontinued dextroamphetamine-amphetamine 10 mg capsule,extended release 24hr 1 cap PO DAILY Discharge Orders: Discharge Order (Routine); Ordered 08/14/22 Ordered By: Zohaib Romano Consulting provider completed their portion of the discharge: Yes Additional Instructions: Patient has pending lab results: Cosyntropin stimulation test results should be available August 15 or August 16 to determine long-term need for prednisone for possible adrenal insufficiency. Activity Level: Weight Bearing as Tolerated and Use Walker Activity Detail: Range of motion operative right hip as tolerated. Activity Restrictions: Weightbear as tolerated operative right lower extremity. Discharge Diet: Regular Diet Detail: Avoid sugar, 90 g protein daily Follow Up Appointments: Angi Estevez DO [Primary Care Provider] - Betina Aguilar PA [Referring] - Discharge Comments: PT and OT daily at shelter facility, eval and treat status post right hip ORIF, weight-bearing as tolerated right lower extremity. Also aggressive strength program for generalized deconditioning Appointment with Dr. Phillips 6 weeks orthopedic clinic Admit to: SNF Discharge Potential: Good Length of Stay: <30 days Can use facility standing orders?: Yes Code Status: Full Code TEDs: Bilateral Knee Rehab Potential: Good Therapy: Physical Therapy and Occupational Therapy Therapy Orders: Evaluate and Treat Oxygen: No Urinary Catheter: No
[2022-08-14 09:54] VITALS: BP 83/55; PULSE 76; RESP 12; TEMP 36.6
[2022-08-14] MEDS: MIDODRINE HCL 5 MG TABLET PO (10:12)
--- NOTE | 2022-08-14 10:31 | PC.NURSE ---
Discharge: Patient pleasant and cooperative. Patient hypotensive but vitally stable, lungs clear, BS WNL, NO IV. Patient 1 assist, walker, gb. Patient rates pain 4/10, 10 mg of oxy given x2. Patient tolerating regular diet and urinating. Right hip dressing C/D/I. Patient signed belongings sheet and discharge, and had no further question regarding discharge. Patient left the floor to discharge at 1024 by EMS/stretcher to [facility] for rehab with all of her belongings and discharge packet.
--- NOTE | 2022-08-14 11:27 | PC.NURSE ---
Called Estrella at [facility], Clinical Coordinator of the [facility] unit that patient was discharged to/ Left message regardding additional medication of Zarelto added to patient med list. Medication prescription transmitted to [facility] in [place]. New medication order faxed to [facility] Fax: [phone].
[2022-08-15 19:39] LABS: Cortisol, Serum 10.5 ug/dL
[2022-08-15 19:44] LABS: Cortisol, Serum 1.1 ug/dL
== END 2022-08-14 10:24 | DRG 481 ==
LOC: ED 12:48 → MEDSURG 15:01
PROVIDERS: Orthopaedic Surgery Sports Medicine; Admitting Provider Family Medicine; Emergency Provider Emergency Medicine; PCP Family Medicine; Visit Provider Family Medicine
PROC: 0QS604Z Reposition Right Upper Femur with Internal Fixation Device, Open Approach (ICD-10-PCS; principal; 2022-08-10 11:15)
DX: S72.001A Fracture of unspecified part of neck of right femur, initial encounter for closed fracture (principal); D62 Acute posthemorrhagic anemia; E27.40 Unspecified adrenocortical insufficiency; I95.9 Hypotension, unspecified; W19.XXXA Unspecified fall, initial encounter; Y92.414 Local residential or business street as the place of occurrence of the external cause; G47.33 Obstructive sleep apnea (adult) (pediatric); K58.9 Irritable bowel syndrome, unspecified; R29.818 Other symptoms and signs involving the nervous system; F43.10 Post-traumatic stress disorder, unspecified; F41.9 Anxiety disorder, unspecified; F60.3 Borderline personality disorder; E66.9 Obesity, unspecified; Z68.30 Body mass index [BMI] 30.0-30.9, adult
CPT/HCPCS: 01210; 36415; 51701; 71045; 73502; 73560; 76000; 80048; 80053; 80076; 82533; 82565; 83605; 83880; 84132; 84145; 84295; 84443; 84484; 84520; 85018; 85025; 85027; 86140; 93005; 94761; 97110; 97116; 97161; 97165; 97530; 97535; 99140; 99284; 99285; A9270; C1713; J0690; J0834; J1170; J1720; J2250; J2370; J2704; J3010; J3490; J7030; J7120; J7512

== ENCOUNTER 2022-08-29 11:08 | Outpatient (RCR) | payer MEDICAID, SELFPAY | END 2023-08-29 16:17 | disposition home or self-care (01) | LOC: MOW 11:08 | PROVIDERS: PCP Family Medicine; Visit Provider Family Medicine | DX: Z76.0 Encounter for issue of repeat prescription (principal) | CPT/HCPCS: S5170 ==

== ENCOUNTER 2023-06-15 16:05 | Outpatient (CLI) | payer OTHER, SELFPAY | END 2023-06-15 16:06 | disposition home or self-care (01) | LOC: AMB 06-16 09:48 | PROVIDERS: PCP Family Medicine; Visit Provider Family Medicine | DX: R19.7 Diarrhea, unspecified (principal) | CPT/HCPCS: A0425; A0427 ==

== ENCOUNTER 2023-06-15 16:25 | Emergency (ER) | payer OTHER, SELFPAY ==
[2023-06-15 16:32] VITALS: BP 139/84; PULSE 95; RESP 20; TEMP 36.6; O2SAT 94; BMI 36.6
--- NOTE | 2023-06-15 16:56 | ED_ITS ---
HPI - Nausea/Vomiting/Diarrhea General Chief complaint: Diarrhea Stated complaint: Weakness Time Seen by Provider: 06/15/23 16:33 History of Present Illness HPI Narrative: This 67-year-old female comes in reporting diarrhea symptoms frequently over the past 4 days. She is now feeling some lightheadedness. She states that she has a history of recurrent and chronic diarrhea but it is distinctly worse over these past 4 days. 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 She does report symptoms like this when her steroid levels are lower than they need to be. Additionally she had an appointment with her primary physician this past week. It was noted that her potassium was a bit elevated. at that appointment she did receive an antibiotic to treat a sinus infection. The the antibiotic may be contributing also to her diarrhea. Related Data Home Medications Medication Instructions Recorded Confirmed loperamide 2 mg capsule 4 mg PO QID PRN 10/02/21 02/25/23 meclizine 25 mg tablet 25 mg PO BID PRN 10/02/21 02/25/23 montelukast 10 mg tablet 10 mg PO HS 10/02/21 02/25/23 albuterol sulfate 90 mcg/actuation 1 puff inhalation Q4H PRN 06/07/22 02/25/23 aerosol inhaler cevimeline 30 mg capsule 1 cap PO BID 06/07/22 02/25/23 lorazepam 0.5 mg tablet 0.5 mg PO DAILY PRN 06/07/22 02/25/23 trazodone 150 mg tablet 75 mg PO QPM 06/07/22 02/25/23 dicyclomine 10 mg capsule 10 mg PO Q6H PRN cramps 08/10/22 02/25/23 ondansetron HCl 8 mg tablet 8 mg PO TID PRN 08/10/22 02/25/23 venlafaxine 150 mg 300 mg PO DAILY 08/10/22 02/25/23 capsule,extended release 24 hr dextroamphetamine-amphetamine ER 1 cap PO DAILY 09/20/22 02/25/23 10 mg 24hr capsule,extend release divalproex 500 mg tablet,delayed 500 mg PO BID 09/20/22 02/25/23 release doxepin 10 mg capsule 10 mg PO DAILY 09/20/22 02/25/23 prednisone 10 mg tablet 10 mg PO DAILY 09/20/22 02/25/23 Previous Rx's Medication Instructions Recorded fludrocortisone 0.1 mg tablet 0.1 mg PO DAILY #30 tabs 08/14/22 midodrine 5 mg tablet 5 mg PO BID #60 tabs 08/14/22 diphenoxylate-atropine 2.5 1 tab PO DAILY #10 tabs 06/15/23 mg-0.025 mg tablet (Lomotil) Allergies Allergy/AdvReac Type Severity Reaction Status Date / Time nitrofurantoin Allergy Unknown Verified 02/25/23 09:00 Iodinated Contrast Media AdvReac Rash Verified 02/25/23 09:00 Sulfa (Sulfonamide AdvReac Rash Verified 02/25/23 09:00 Antibiotics) hand heating element builder Allergy Severe Anaphylaxis Uncoded 02/25/23 09:00 Ioxaglate sodium Allergy Unknown Uncoded 02/25/23 09:00 Review of Systems Status of ROS: Reports: 10 or more systems reviewed and unremarkable except as noted in History and below Narrative: Constitutional: No fevers, no weight gain or loss. Eyes: No discharge. No vision changes. HENT: No congestion, no sore throat, no ear pain. Cardiovascular: No chest pain, no palpitations. Respiratory: No shortness of breath, no wheezes, no cough. Gastrointestinal: She reports episodes of abdominal pain but nothing is constant. She states she has diarrhea about every 15 minutes. She has been drinking electrolyte based fluids. Genitourinary: No dysuria, no hematuria. Musculoskeletal: Normal range of motion. Skin: No rashes, no pruritis. Neurological: No dizziness, weakness, sensory change, speech change. Endo/Heme/Allergies: No bruising or bleeding. No polydipsia. Pysch: no suicidality, no anxiety, no insomnia. All other systems reviewed and are negative. [facility] Medical History Tear of medial meniscus of right knee ?S83.241A - Other tear of medial meniscus, current injury, right knee, initial encounter (ICD-10) Osteoarthritis of right knee ?M17.11 - Unilateral primary osteoarthritis, right knee (ICD-10) Irritable bowel syndrome ?K58.9 - Irritable bowel syndrome without diarrhea (ICD-10) Physical deconditioning ?R53.81 - Other malaise (ICD-10) Chronic diarrhea ?K52.9 - Noninfective gastroenteritis and colitis, unspecified (ICD-10) Anxiety ?F41.9 - Anxiety disorder, unspecified (ICD-10) History of prediabetes ?Z87.898 - Personal history of other specified conditions (ICD-10) History of major depression ?Z86.59 - Personal history of other mental and behavioral disorders (ICD-10) Surgical History S/P ORIF (open reduction internal fixation) fracture (08/10/22) ?Z98.890 - Other specified postprocedural states (ICD-10) ?Z87.81 - Personal history of (healed) traumatic fracture (ICD-10) History of loop recorder (03/17/19) ?Z98.890 - Other specified postprocedural states (ICD-10) History of partial thyroidectomy (1999) ?E89.0 - Postprocedural hypothyroidism (ICD-10) History of cholecystectomy (1983) ?Z90.49 - Acquired absence of other specified parts of digestive tract (ICD- 10) History of bladder suspension procedure (2014) ?Z98.890 - Other specified postprocedural states (ICD-10) ?Z87.448 - Personal history of other diseases of urinary system (ICD-10) Family History Mother Alcoholism Social History Narrative: Nonsmoker. Does not exercise. . 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 5 adult children. She lives with her daughter who has mental disability-?Autism Highest level of school completed/degree received: Master's degree Smoking Status: Never smoker Do you use any of these nicotine containing products: None Second hand tobacco smoke exposure: No How often do you have a drink containing alcohol: never AUDIT-C Alcohol total score: 0 Non-prescribed substance use: denies use Caffeine: No service: No Exam Narrative: Exam Narrative: Constitutional: Well-developed, well-nourished, no acute distress. HEENT: Normocephalic, atraumatic. Neck: Normal range of motion. Nontender. Supple. Heart: Regular. No murmurs. Normal rate. Intact distal pulses. Lungs: Clear to auscultation. No chest discomfort. No wheezes, rhonchi, or rales. Abdomen: Normal bowel sounds. Nontender. No rebound tenderness. Genitalia: Deferred. Back: No midline tenderness. Normal range of motion. Extremities: Normal range of motion. No injury. Skin: Intact. No rash. Warm. No erythema or pallor. Neurologic: No altered sensation. No weakness. Alert and oriented. Psychiatric: No suicidality. No anxiety or depression. No insomnia. Nursing notes and vitals signs are reviewed. Const: Vital Signs, click to edit/add: Vital Signs - 24 hr 06/15/23 16:32 Temperature 97.8 F Pulse Rate [Right Pulse Oximeter] 95 Respiratory Rate 20 Blood Pressure [Ri ght Upper Arm] 139/84 Pulse Oximetry 94 Oxygen Delivery Me thod Room Air Course Vital Signs Vital signs: Initial Vital Signs Temperature 97.8 F 06/15/23 16:32 Temperature Source Temporal Artery Scan 06/15/23 16:32 Pulse Rate 95 06/15/23 16:32 Respiratory Rate 20 06/15/23 16:32 Blood Pressure 139/84 06/15/23 16:32 Blood Pressure Mean 102 06/15/23 16:32 Blood Pressure Position Sitting 06/15/23 16:32 Pulse Oximetry 94 06/15/23 16:32 Oxygen Delivery Method Room Air 06/15/23 16:32 Vital Signs Temperature 97.8 F 06/15/23 16:32 Pulse Rate 95 06/15/23 16:32 Respiratory Rate 20 06/15/23 16:32 Blood Pressure 139/84 06/15/23 16:32 Pulse Oximetry 94 06/15/23 16:32 Oxygen Delivery Method Room Air 06/15/23 16:32 Temperature 97.8 F 06/15/23 16:32 Pulse Rate 95 06/15/23 16:32 Respiratory Rate 20 06/15/23 16:32 Blood Pressure 139/84 06/15/23 16:32 Pulse Oximetry 94 06/15/23 16:32 Oxygen Delivery Method Room Air 06/15/23 16:32 Medications Administered Medications: Discontinued Medications Generic Name Dose Route Start Last Admin Trade Name Freq PRN Reason Stop Dose Admin Sodium Chloride 1,000 mls @ 1,000 mls/hr 06/15/23 17:00 06/15/23 17:41 0.9 % Sodium Chloride 1000 Ml IV 06/15/23 17:59 1,000 mls/hr .Q1H ELIZABETH Administration Methylprednisolone Sodium Succinate 125 mg 06/15/23 16:56 06/15/23 17:40 Methylprednisolone Sod Succ 62.5 Mg/Ml (125) IVP 06/15/23 16:57 125 mg ONCE ONE Administration MDM - Nausea/Vomiting/Diarrhea MDM Narrative Medical decision making narrative: This patient has an IV in place and did receive a L of normal saline here in addition to 500 mL EN route here. She also received an IV dose of Solu-Medrol 125 mg. I did discuss lab and imaging options with the patient and in a process of shared decision making these were declined. She states that she has a follow-up appointment with her primary physician in a few days. The patient states that she is feeling better. She is okay to be discharged home. I did provide a prescription for some tablets of Lomotil if needed. Discharge Plan Discharge Clinical Impression: Fountain's disease, Diarrhea Patient Disposition: Home, Self-Care Condition: Stable Additional Instructions: Continue current plans. Use Lomotil if Imodium is not helping. Follow up with MD as scheduled or return if worsening. Prescriptions: New diphenoxylate-atropine [Lomotil] 2.5-0.025 mg tablet 1 tab PO DAILY Qty: 10 0RF No Action montelukast 10 mg tablet 10 mg PO HS loperamide 2 mg capsule 4 mg PO QID PRN meclizine 25 mg tablet 25 mg PO BID PRN divalproex 500 mg tablet,delayed release (DR/EC) 500 mg PO BID prednisone 10 mg tablet 10 mg PO DAILY doxepin 10 mg capsule 10 mg PO DAILY dextroamphetamine-amphetamine 10 mg capsule,extended release 24hr 1 cap PO DAILY albuterol sulfate 90 mcg/actuation HFA aerosol inhaler 1 puff INHALATION Q4H PRN Patient Comments: PLEASE SEE ATTACHED FOR DETAILED DIRECTIONS lorazepam 0.5 mg tablet 0.5 mg PO DAILY PRN trazodone 150 mg tablet 75 mg PO QPM cevimeline 30 mg capsule 1 cap PO BID Patient Comments: can use 1 cap at noon prn venlafaxine 150 mg capsule,extended release 24hr 300 mg PO DAILY dicyclomine 10 mg capsule 10 mg PO Q6H PRN (Reason: cramps) ondansetron HCl 8 mg tablet 8 mg PO TID PRN midodrine 5 mg Tablet 5 mg PO BID Qty: 60 0RF fludrocortisone 0.1 mg Tablet 0.1 mg PO DAILY Qty: 30 0RF Follow Up/Referrals: Angi Estevez DO [Primary Care Provider] - Stand Alone Forms: [facility] Info Instructions
[2023-06-15] MEDS: METHYLPREDNISOLONE SOD SUCC 62.5 MG/ML (125) 125 MG IVP (17:40)
[2023-06-15] MEDS: 0.9 % SODIUM CHLORIDE 1000 ml 1,000 ML IV (17:41)
[2023-06-15 18:44] VITALS: BP 114/81; PULSE 75; RESP 18; O2SAT 94
== END 2023-06-15 18:50 | disposition home or self-care (01) ==
PROVIDERS: Emergency Provider Emergency Medicine Emergency Medical Services; PCP Family Medicine
DX: R19.7 Diarrhea, unspecified (principal); E27.1 Primary adrenocortical insufficiency
CPT/HCPCS: 96374; 99283; 99284; J2930; J7030

== ENCOUNTER 2023-08-30 14:36 | Outpatient (RCR) | payer MEDICAID, SELFPAY | END 2024-08-29 10:42 | disposition home or self-care (01) | LOC: MOW 14:36 | PROVIDERS: PCP Family Medicine; Visit Provider Family Medicine | DX: Z76.0 Encounter for issue of repeat prescription (principal) | CPT/HCPCS: S5170 ==

== ENCOUNTER 2023-09-04 09:45 | Outpatient (RCR) | payer OTHER, SELFPAY ==
--- NOTE | 2023-02-14 16:47 | PT.OPEX ---
[facility] initial eval PT [facility] Eval Start: 02/14/23 07:25 Freq: Status: Active Protocol: Document 02/14/23 07:26 NONA (Rec: 02/14/23 16:43 NONA [id number]) E-signed By Baldemar Paulson DPT Physical Therapy Outpatient Evaluation Insurance Information Insurance Name [employer] Medical Diagnosis ORIF RLE-femoral neck fx R LE weakness and balance Treating Diagnosis R hip pain muscle weakness Referring MD patrice de la torre Subjective Subjective Sophie comes into clinic 6 months post femoral neck fx with ORIF performed on 08/09/22 . She mentions how she has had a complex year medically. Last december she had hernia surgery performed that she needed to be in a SNF for several months for after. She has been having difficulty controlling her BP levels which has been leading to recurrent falls-which cause her most recent fall led to the hip fx. She was seeing home PT for two months after but has not since October. Biggest limits are walking, mainly uses 4ww , sit to stand and sit to supine transfers. States using her wheel chair for more mobility at home. 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 HIP ROM R Flexion: with knee flexed can reach 90 degrees before pain Extension: can reach normal but needs to breath through pain Internal Rotation: 15 degrees before guarding External Rotation WNL Abduction LLE MMT: Hip flexion: R 3+/5 L4- /5 Hip abduction: R 3/5 L 4/5 - performed seated due to not tolerating side lying Knee flexion:R 4-/5 L4 /5 Knee extension: R 3+/5 L 4/5 Assessment Assessment/Impression POST-OP Patient presents with signs and symptoms consistent with diagnosis of R hip ORIF , s/p 6 months post operative. Rehab potential is good. Yarbrough impairments include: decreased ROM and strength of the extremity, poor balance and compensatory gait patterning, pain/limitations with functional activities such as squatting, walking, and climbing stairs. Skilled PT is required to address these yarbrough impairments and to provide and progress with an appropriate home exercise program. Plan of Care Rehabilitation Potential Good Physical Therapy Goals STG Pt will be able to perform 5 sit to stands without UE assist to allow for independence with transfers within 4-5 weeks Patient will demonstrate/ report ability to walk for 10- 15 minutes with pain level <1/ 10, to allow for community and household ambulation within 4 -5 weeks Patient will demonstrate/ report ability to sit for 15- 20 minutes with pain level <1/ 10, to allow for personal/ community transportation within 4-5 weeks LTG Pt will be able to perform 10 sit to stands without UE assist to allow for independence with transfers within 8-10 weeks Patient will demonstrate/ report ability to walk for 20- 30 minutes with pain level <1/ 10, to allow for community and household ambulation within 8 -10 weeks Patient will demonstrate/ report ability to sit for 30- 45 minutes with pain level <1/ 10, to allow for personal/ community transportation within 8-10 weeks Coordination/Communication With Referral Source Treatment Plan/Direct Interventions Gait Training,Joint Mobilization,Manual Therapy, Neuromuscular Re-ed,Self-Care/ Home Management,Therapeutic Activities,Therapeutic Exercises Frequency/Duration 1 visit a week for 6-12 visits Patient Will Be Discharged From Therapy Completion of LTG(s), Independent w/HEP, Independently Progressing Evaluation Billing Untimed Code Treatment Minutes 30 Complexity High Certification Information Physician Comment/Change : Physician NPI Number #
--- NOTE | 2023-07-10 10:21 | PT.OPDNX ---
[facility] Out[facility] Daily Note progress notes requires signature PT [facility] Outpatient Daily Note Start: 02/14/23 07:25 Freq: Status: Active Protocol: Document 07/10/23 07:32 NONA (Rec: 07/10/23 10:20 NONA [id number]) E-signed By Baldemar Paulson DPT PT OP Daily Progress Note Visit Information Note Type Daily Note,Recert/Progress Note Visit Number [id number] Insurance Information Recert Due Date 10/03/23 Insurance Name Medicare B,are Medical Diagnosis ORIF RLE-femoral neck fx R LE weakness and balance Treating Diagnosis R hip pain muscle weakness Referring MD patrice de la torre Subjective Subjective Sophie comes into clinic saying she had some lateral hip pain for a couple days but states feeling relieved today without issues. The most pain she has had in the R hip has been a 6/10 but not long lasting. Feels like walking is about the same but able to handle more time. Pain Comments 4/10 with walking standing transfers Precautions Treatment Precautions/Contraindications anxiety, falls, depression, [place]'s disease Home Exercise Home Exercise Comments [id number] Objective Other/Pertinent Objective GAIT/FUNCTIONAL MOBILITY ambulates with 4ww with good pace and slight decrease in R hip stance with R hip drop HIP ROM R Flexion:105 with knee flexed no pain Extension: can reach normal but needs to breath through pain Internal Rotation: 30 degrees no pain External Rotation 30 degrees before pain LLE MMT: Hip flexion: R 4/5 L4- /5 Hip abduction: R 4-/5 L 4/5 - performed seated due to not tolerating side lying Knee flexion:R 4+/5 L4+ /5 Knee extension: R 4+/5 L 4+/5 [ End ] Functional Test Performed & Score LEFS 07/10/23 19/80 Patient Instructed in Risks/Benefits Yes Therapeutic Exercise Therapeutic Exercise Minutes (minutes) 30 Therapeutic Exercise: To Restore nu step x 10 min lvl 2-3 Functional Status elevated sit stand 2x10 hip abd seated grn tb 2x 10 B grn tb laq x 10 B hip adduction seated grn tb x 10 B reviewed HEP needing increased rest during session Treatment Minutes Untimed Code Treatment Minutes 15 Timed Code Treatment Minutes 30 Total Treatment Time 45 Billing Units Therapeutic Exercise Units 2 Assessment/Impression Assessment/Impression Patient is a 68 yr old scale scoreing a 19/80 on LEFS. Pt states since starting therapy she has noticed a 60% improvement, stating she is able to walk further, not needing the walker at home, not having pain everyday. Patient has shown improvement in PT demonstrating decreased pain, increased range of motion, increased strength, and increased tolerance to activity. Patient continues to present with pain with prolonged activity. Patient would benefit from continued skilled PT services to address these issues and to maximize function. Plan of Care Physical Therapy Goals STG Pt will be able to perform 5 sit to stands without UE assist to allow for independence with transfers within 4-5 weeks- met Patient will demonstrate/ report ability to walk for 10- 15 minutes with pain level <1/ 10, to allow for community and household ambulation within 4 -5 weeks - met Patient will demonstrate/ report ability to sit for 15- 20 minutes with pain level <1/ 10, to allow for personal/ community transportation within 4-5 weeks met LTG Pt will be able to perform 10 sit to stands without UE assist to allow for independence with transfers within 8-10 weeks met with increased pain Patient will demonstrate/ report ability to walk for 20- 30 minutes with pain level <1/ 10, to allow for community and household ambulation within 8 -10 weeks nm can go 20 minutes but with 3-6/10 pain Patient will demonstrate/ report ability to sit for 30- 45 minutes with pain level <1/ 10, to allow for personal/ community transportation within 8-10 weeks nm - can last 15-20 minutes before increase in pain Daily Plan of Care Continue per POC,Change in Duration Daily Plan of Care Comments needing additional visits due to patient tolerance and changing medications along with addisons flare ups impacting advancement of activity Discharge Note Date of First Visit for Therapy 02/14/23 Initial Primary Functional Limitations walking standing sitting transfers Initial Pain Level 4/10
== END 2023-09-04 10:33 | disposition home or self-care (01) ==
PROVIDERS: PCP Family Medicine; Visit Provider Orthopaedic Surgery Sports Medicine
DX: R29.898 Other symptoms and signs involving the musculoskeletal system (principal); Z98.890 Other specified postprocedural states; Z51.89 Encounter for other specified aftercare
CPT/HCPCS: 97110; 97112; 97163

== ENCOUNTER 2023-11-10 16:51 | Outpatient (CLI) | payer OTHER, SELFPAY | END 2023-11-10 16:52 | disposition home or self-care (01) | LOC: NFLDREF 11-14 04:18 | PROVIDERS: PCP Family Medicine; Referring Provider Family Medicine; Visit Provider Nurse Practitioner | DX: N30.01 Acute cystitis with hematuria (principal); B96.4 Proteus (mirabilis) (morganii) as the cause of diseases classified elsewhere | CPT/HCPCS: 87086; 87186 ==

== ENCOUNTER 2024-06-17 12:41 | Outpatient (CLI) | payer OTHER, SELFPAY | END 2024-06-17 12:42 | disposition home or self-care (01) | LOC: NFLDREF 06-19 21:50 | PROVIDERS: PCP Family Medicine; Referring Provider Family Medicine; Visit Provider Nurse Practitioner | DX: N30.01 Acute cystitis with hematuria (principal); N89.8 Other specified noninflammatory disorders of vagina; M54.9 Dorsalgia, unspecified | CPT/HCPCS: 87086 ==

== ENCOUNTER 2024-06-25 09:56 | Emergency (ER) | payer OTHER, SELFPAY ==
[2024-06-25 09:58] VITALS: BP 103/53; PULSE 106; RESP 14; TEMP 36.9; O2SAT 96; BMI 29.3
--- OUTSIDE RECORDS SUMMARY | 2024-06-25 09:58 | XMS_ITS | Encounter Summary ---
[facility] Address [address] [place] [address] Care Team Providers Care Supplier Diversity Director Name Role Phone Gaby Fleming MD Primary Care Provider [phone] Encounter Details Date Type Department Care Team (Late st Contact Info) Description 05/19/2014 Scanned History [facility] [address] [place] [address] Jaycob Ayala MD [facility]-DISCHARGE PAPERWORK Social History Tobacco Use Types Packs/Day Years Used Date Smoking Tobacco: Never Smokeless Tobacco: Never Alcohol Use Standard Drinks/Week Comments No 0 (1 standard drink = 0.6 oz pur e alcohol) Comments No Sex and Gender Information Value Date Recorded Sex Assigned at Not on file Legal Sex Female 4:36 AM CDT Gender Identity Not on file Sexual Orientation Not on file documented as of this encounter Plan of Treatment Not on file documented as of this encounter Visit Diagnoses Not on filedocumented in this encounter Care Teams Supplier Diversity Director Relationship Specialty Start Date End Date Gaby Fleming MD [address] [place] [address] PCP - General 01/29/06 documented as of this encounter
--- OUTSIDE RECORDS SUMMARY | 2024-06-25 09:58 | XMS_ITS | Encounter Summary ---
Author Organization [facility] Address [address] [place] [address] Care Team Providers Care Fish Housekeeper Name Role Phone Gaby Fleming MD Primary Care Provider [phone] Encounter Details Date Type Department Care Team (Latest Contact Info) Description 01/05/1998 Orders Only Arielle Caraballo, DO [address] [place] [address] Social History Tobacco Use Types Packs/Day Years Used Date Smoking Tobacco: Never Assessed Comments Unknown Sex and Gender Information Value Date Recorded Sex Assigned at Not on file Legal Sex Female 4:36 AM CDT Gender Identity Not on file Sexual Orientation Not on file documented as of this encounter Plan of Treatment Not on file documented as of this encounter Visit Diagnoses Not on filedocumented in this encounter Care Teams Fish Housekeeper Relationship Specialty Start Date End Date Gaby Fleming MD [address] [place] [address] PCP - General 01/29/06 documented as of this encounter
--- OUTSIDE RECORDS SUMMARY | 2024-06-25 09:58 | XMS_ITS | Encounter Summary ---
Author Organization [facility] Address [address] [place] [address] Care Team Providers Care Flocculator Operator Name Role Phone Gaby Fleming MD Primary Care Provider [phone] Encounter Details Date Type Department Care Team (Latest Contact Info) Description 02/20/1998 Orders Only Morteza Vyas Social History Tobacco Use Types Packs/Day Years [...] on filedocumented in this encounter Care Teams Flocculator Operator Relationship Specialty Start Date End Date Gaby Fleming MD [address] [place] [address] PCP - General 01/29/06 documented as of this encounter
--- OUTSIDE RECORDS SUMMARY | 2024-06-25 09:59 | XMS_ITS | Encounter Summary ---
Author Organization [facility] Address [address] [place] [address] Care Team Providers Care Steel Burner Name Role Phone Gaby Fleming MD Primary Care Provider [phone] Encounter Details Date Type Department Care Team (Late st Contact Info) Description 01/25/2016 Correspondence None Inactive, Provider PAP EQUIPMENT PICK-UP TICKET Social History Tobacco Use Types Packs/Day Years [...] on filedocumented in this encounter Care Teams Steel Burner Relationship Specialty Start Date End Date Gaby Fleming MD [address] [place] [address] PCP - General 01/29/06 documented as of this encounter
--- OUTSIDE RECORDS SUMMARY | 2024-06-25 09:59 | XMS_ITS | Encounter Summary ---
Author Organization [facility] Address [address] [place] [address] Care Team Providers Care Child And Family Therapist Name Role Phone Gaby Fleming MD Primary Care Provider [phone] Encounter Details Date Type Department Care Team (Late st Contact Info) Description 10/20/2014 Correspondence None Inactive, Provider PAP EQUIPMENT PICK-UP [...] on filedocumented in this encounter Care Teams Child And Family Therapist Relationship Specialty Start Date End Date Gaby Fleming MD [address] [place] [address] PCP - General 01/29/06 documented as of this encounter
--- OUTSIDE RECORDS SUMMARY | 2024-06-25 09:59 | XMS_ITS | Encounter Summary ---
Author Organization [facility] Address [address] [place] [address] Care Team Providers Care Electric Organ Checker Name Role Phone Gaby Fleming MD Primary Care Provider [phone] Encounter Details Date Type Department Care Team (Late st Contact Info) Description 01/10/2015 Correspondence [facility] [address] [place] [id number] Jaycob Ayala MD LETTER Social History Tobacco Use Types Packs/Day Years [...] on filedocumented in this encounter Care Teams Electric Organ Checker Relationship Specialty Start Date End Date Gaby Fleming MD [address] [place] [address] PCP - General 01/29/06 documented as of this encounter
--- OUTSIDE RECORDS SUMMARY | 2024-06-25 09:59 | XMS_ITS | Encounter Summary ---
Author Organization [facility] Address [address] [address] Care Team Providers Care R D Internship Name Role Phone Gaby Fleming MD Primary Care Provider [phone] Encounter Details Date Type Department Care Team (Late st Contact Info) Description 03/11/2014 Correspondence None No Primary/Referring, Phy EQUIPMENT HAND TURNER TICKET Social History Tobacco Use Types Packs/Day [...] on filedocumented in this encounter Care Teams R D Internship Relationship Specialty Start Date End Date Gaby Fleming MD [address] [place] [address] PCP - General 01/29/06 documented as of this encounter
--- OUTSIDE RECORDS SUMMARY | 2024-06-25 09:59 | XMS_ITS | Encounter Summary ---
[facility] Address [address] [place] [address] Care Team Providers Care Program Supervisor Name Role Phone Gaby Fleming MD Primary Care Provider [phone] Encounter Details Date Type Department Care Team (Late st Contact Info) Description 04/22/2014 Consent for Procedure/Treatme nt [facility] INFORMED CONSENT NEUROLEPTIC MEDICATIONS Social History Tobacco Use Types Packs/Day Years [...] on filedocumented in this encounter Care Teams Program Supervisor Relationship Specialty Start Date End Date Gaby Fleming MD [address] [place] [address] PCP - General 01/29/06 documented as of this encounter
--- OUTSIDE RECORDS SUMMARY | 2024-06-25 09:59 | XMS_ITS | Encounter Summary ---
Author Organization [facility] Address [address] [place] [address] Care Team Providers Care Contract Runner Name Role Phone None Reported, Pcp Primary Care Provider Unavail able Reason for Referral * Outpatient (Routine) - Closed Specialty Diagnoses / Procedures Referred By Horacio marino Referred To Contact Neurology Diagnoses Demyelinating Disease Central Nervous System (HCC) Gagan Vera M.D. Phone: tel: fax: [facility] Referral ID Status Reason Start Date Expiration Date Visits Re quested Visits Authorized [id number] Closed 07/30/2018 07/30/2019 1 1 Encounter Details Date Type Department Care Team (Latest Contact Info) Description 07/30/2018 [facility] [address] [place] [address] Gagan Vera M.D. [address] [place] [address] Demyelinating Disease Central Nervous System (HCC) (Primary Dx) Social History Tobacco Use Types Packs/Day Years Used Date Smoking Tobacco: Never Assessed Comments Unknown Sex and Gender Information Value Date Recorded Sex Assigned at Female 01/02/2021 11:08 AM CDT Legal Sex Female 10:48 AM CDT Gender Identity Female 03/11/2019 12:39 PM CD MIXER Sexual Orientation Straight 03/11/2019 12 :39 PM CD MIXER documented as of this encounter Plan of Treatment Scheduled Referrals Name Type Priority Associated Diagnoses Orde r Schedule Neurology Referral Outpatient Referral Routine Demyelinating Disease Central Nervous System (HCC) Expected: 07/30/2018 (Approximate), Expires: 07/30/2021 documented as of this encounter Visit Diagnoses Diagnosis Demyelinating Disease Central Nervous System (HCC)- Primary documented in this encounter Additional Health Concerns Infection Onset Date Last Indicated Resolved Time COVID19 Pending 04/12/2021 04/12/2021 04/13/2021 6 :18 PM CD MIXER documented as of this encounter Care Teams Contract Runner Relationship Specialty Start Date End Date None Reported, Pcp PCP - General Family Medicine 01/26/24 documented as of this encounter
--- OUTSIDE RECORDS SUMMARY | 2024-06-25 09:59 | XMS_ITS | Encounter Summary ---
Author Organization [facility]1983 Address [address] [place] [address] Care Team Providers Care Laboratory Monitor Name Role Phone Gaby Fleming MD Primary Care Provider [phone] Encounter Details Date Type Department Care Team (Latest Contact Info) Description 10/17/1996 Orders Only Rosetta Gramajo MD [address] [place] [address] Social History Tobacco Use Types Packs/Day Years [...] on filedocumented in this encounter Care Teams Laboratory Monitor Relationship Specialty Start Date End Date Gaby Fleming MD [address] [place] [address] PCP - General 01/29/06 documented as of this encounter
--- OUTSIDE RECORDS SUMMARY | 2024-06-25 09:59 | XMS_ITS | Encounter Summary ---
Author Organization [facility] Address [address] [place] [address] Care Team Providers Care Welt Sewer Name Role Phone Gaby Fleming MD Primary Care Provider [phone] Encounter Details Date Type Department Care Team (Late st Contact Info) Description 08/09/2011 Consent for Procedure/Treatme [facility] Department INFORMED CONSENT RECORD Social History Tobacco Use Types Packs/Day Years [...] on file documented as of this encounter Progress Notes * [employer], PROVIDER - 08/09/2011 12:00 AM CDT documented in this encounter Plan of Treatment Not on file documented as of this encounter Visit Diagnoses Not on filedocumented in this encounter Care Teams Welt Sewer Relationship Specialty Start Date End Date Gaby Fleming MD [address] [place] [address] PCP - General 01/29/06 documented as of this encounter
--- OUTSIDE RECORDS SUMMARY | 2024-06-25 09:59 | XMS_ITS | Encounter Summary ---
Author [facility] Address [address] [place] [address] Care Team Providers Care Ceramic Saw Tender Name Role Phone Gaby Fleming MD Primary Care Provider [phone] Encounter Details Date Type Department Care Team (Late st Contact Info) Description 05/13/2014 Scanned History None [facility], Provider [facility]TREATMENT PLAN Social History Tobacco Use Types Packs/Day Years [...] on filedocumented in this encounter Care Teams Ceramic Saw Tender Relationship Specialty Start Date End Date Gaby Fleming MD [address] [place] [address] PCP - General 01/29/06 documented as of this encounter
--- OUTSIDE RECORDS SUMMARY | 2024-06-25 09:59 | XMS_ITS | Encounter Summary ---
[facility] Address [address] [place] [address] Care Team Providers Care Patient Case Manager Name Role Phone Gaby Fleming MD Primary Care Provider [phone] Encounter Details Date Type Department Care Team (Late st Contact Info) Description 02/02/2016 Refill Order [facility] [address] [place] [id number] [place] [address] [place] [address] Social History Tobacco Use Types Packs/Day Years [...] on file documented as of this encounter Nursing Notes * Guillermina Macdonald CMA - 02/02/2016 8:34 AM CDT Letter sent to pt. Guillermina Macdonald CMA 02/02/2016, 8:34 AM documented in this encounter Plan of Treatment Not on file documented as of this encounter Results * Hemoglobin, Blood (02/12/2016 2:43 PM EPIC DIRECTOR) Hemoglobin 12.7 12.0 - 16.0 g/dl [facility] 02/12/2016 2:43 PM EPIC DIRECTOR 02/12/2016 2:45 PM EPIC DIRECTOR Narrative [facility] - 02/12/2016 6:50 PM EPIC DIRECTOR Performed at [facility], [address] [place] [id number] [place] Gaby Fleming MD LAB_1 Final Resul t [facility] [phone] documented in this encounter Visit Diagnoses Diagnosis Encounter for long-term (current) use of medications- Primary Encounter for long-term (current) use of other medications Acute gout of left knee, unspecified cause- Primary Encounter for long-term (current) use of medications Encounter for long-term (current) use of other medications documented in this encounter Care Teams Patient Case Manager Relationship Specialty Start Date End Date Gaby Fleming MD [address] [place] [address] PCP - General 01/29/06 documented as of this encounter
--- OUTSIDE RECORDS SUMMARY | 2024-06-25 09:59 | XMS_ITS ---
Author Organization [facility] Care Team Providers Care Broom Worker Name Role Phone Melissa Chacko Unavailable Unavailable Lucila Herring Unavailable Unavailable Andrey Romano Unavailable Unavailable Allergies and adverse reactions Code CodeSystem Substance Reaction Severity StartDate Concern Status 185247572 SNOMED CT Sulfa Antibiotics Mild 08/14/2022 active SULFA Unknown 08/14/2022 active 7454 RXNORM Nitrofurantoin Unknown 08/14/2022 active IVP Dye Unknown 08/14/2022 active 5973 RXNORM Ioxaglate Unknown 08/14/2022 active Hand Student Recruiter Anaphylaxis (code- 22881232, SNOMED CT) Severe 08/14/2022 active Contrast Moderate 08/14/2022 active Care Team Name Role Address Phone Organization Dates Andrey Romano PCP [facility] [address] [place] [address], [address], [place], [address], [place] (Office): [facility] 08/14/2022 - 09/05/2022 Melissa Chacko Attending Physician [facility] 08/14/2022 - 09/05/2022 Lucila Herring Attending Physician [address], [place], [address], [place] (Office): : [facility] 08/14/2022 - 09/05/2022 Immunizations Immunization Status Vaccine Details Vaccine Code CodeSystem Date Notes Hepatitis B completed hepatitis B vaccine, adult dosage 43 CVX created date: 08/14/2022 administer ed date: 01/17/2016 Hepatitis B completed hepatitis B vaccine, adult dosage 43 CVX created date: 08/14/2022 administer ed date: 12/25/2002 Hepatitis B completed hepatitis A and hepatitis B vaccine 104 CVX created date: 08/14/2022 administer ed date: 12/25/2001 TB 2 Step Mantoux Skin Test completed tuberculin skin test; unspecified formulation lotNumber: [id number] expiry: 09/05/2024 Mfg: [employer] Given 0.1 ml Right Forearm intradermally Step 2 of Multi-step with next step required 98 CVX created date: 08/28/2022 consent date: 08/28/2022 administer ed date: 08/28/2022 Educated by Mary Dennis RN on 08/28/2022 TB 2 Step Mantoux Skin Test completed tuberculin skin test; unspecified formulation lotNumber: [id number] expiry: 09/05/2024 Mfg: [employer] Given 0.1 ml Right Forearm intradermally Step 1 of Multi-step with next step required 98 CVX created date: 08/14/2022 consent date: 08/14/2022 administer ed date: 08/14/2022 Educated by Mary Dennis RN on 08/14/2022 TDAP completed tetanus toxoid, reduced diphtheria toxoid, and acellular pertussis vaccine, adsorbed 115 CVX created date: 08/14/2022 administer ed date: 12/27/2018 TDAP completed tetanus toxoid, reduced diphtheria toxoid, and acellular pertussis vaccine, adsorbed 115 CVX created date: 08/14/2022 administer ed date: 05/15/2010 PPSV23, Pneumovax 23 completed pneumococcal polysaccharide vaccine, 23 valent 33 CVX created date: 08/14/2022 administer ed date: 02/07/2012 PCV13, [id number] completed Pneumococcal conjugate vaccine 20-valent (PCV20), polysaccharide [id number] conjugate, adjuvant, preservative free 216 CVX created date: 08/14/2022 administer ed date: 03/08/2022 Influenza-High Dose completed Influenza, high-dose, split virus, quadrivalent, injectable, preservative free 197 CVX created date: 08/14/2022 administer ed date: 01/18/2022 Hepatitis A completed hepatitis A and hepatitis B vaccine 104 CVX created date: 08/14/2022 administer ed date: 12/25/2021 Hepatitis A completed hepatitis A and hepatitis B vaccine 104 CVX created date: 08/14/2022 consent date: 08/14/2022 administer ed date: 01/17/2016 Hepatitis A completed hepatitis A and hepatitis B vaccine 104 CVX created date: 08/14/2022 administer ed date: 06/01/2002 Td completed tetanus and diphtheria toxoids, adsorbed, preservative free, for adult use, Lf unspecified 196 CVX created date: 08/14/2022 administer ed date: 09/30/2001 Td completed tetanus and diphtheria toxoids, adsorbed, preservative free, for adult use, Lf unspecified 196 CVX created date: 08/14/2022 administer ed date: 03/30/1990 Zostavax (Live Shingles) completed zoster vaccine, live 121 CVX created date: 08/14/2022 administer ed date: 09/15/2021 Zostavax (Live Shingles) completed zoster vaccine, live 121 CVX created date: 08/14/2022 administer ed date: 07/04/2021 COVID-19 Vaccine dose 1 completed SARS-COV-2 (COVID-19) vaccine, mRNA, spike protein, LNP, preservative free, 30 mcg/0.3mL dose, holli-sucrose formulation Mfg: Pfizer 217 CVX created date: 08/14/2022 administer ed date: 04/18/2020 COVID-19 Vaccine dose 2 completed SARS-COV-2 (COVID-19) vaccine, mRNA, spike protein, LNP, preservative free, 30 mcg/0.3mL dose, holli-sucrose formulation Mfg: Deolan 217 CVX created date: 08/14/2022 administer ed date: 05/09/2020 COVID-19 Vaccine dose 3 completed unknown vaccine or immune globulin Mfg: Deolan 999 CVX created date: 08/14/2022 administer ed date: 01/01/2021 COVID-19 Vaccine dose 4 completed SARS-COV-2 (COVID-19) vaccine, mRNA, spike protein, LNP, preservative free, 30 mcg/0.3mL dose 208 CVX created date: 08/14/2022 administer ed date: 09/15/2021 COVID-19 Vaccine dose 5 completed SARS-COV-2 (COVID-19) vaccine, mRNA, spike protein, LNP, preservative free, 30 mcg/0.3mL dose Mfg: Deolan 208 CVX created date: 08/14/2022 administer ed date: 01/18/2022 Mental Status Section Date Assessment Total Score Description 09/05/2022 BIMS 15 cognitively int act CAM 0 No delirium ind icated PHQ-9 06 mild depression 08/16/2022 BIMS 15 cognitively int act CAM 0 No delirium ind icated PHQ-9 10 moderate depres darwin Problems Problem # Description Date of onset Resolved Date Code CodeSystem Concern Status 1 AGE-RELATED OSTEOPOROSIS WITHOUT CURRENT PATHOLOGICAL FRACTURE 08/14/[address] active 2 ANEMIA, UNSPECIFIED 08/14/[address] active 3 ANXIETY DISORDER, UNSPECIFIED 08/14/[address] active 4 BORDERLINE PERSONALITY DISORDER 08/14/2022200027412089 SNOMED CT active 5 CONVERSION DISORDER WITH MIXED SYMPTOM PRESENTATION 08/14/[address] active 6 DEPENDENCE ON OTHER ENABLING MACHINES AND DEVICES 08/14/[address] active 7 FRACTURE OF UNSPECIFIED PART OF NECK OF RIGHT FEMUR, SUBSEQUENT ENCOUNTER FOR CLOSED FRACTURE WITH ROUTINE HEALING 08/14/[address] active 8 GASTRO-ESOPHAGEAL REFLUX DISEASE WITHOUT ESOPHAGITIS 08/14/[address] active 9 IRRITABLE BOWEL SYNDROME, UNSPECIFIED 08/14/[address] active 10 [facility] (CURRENT) USE OF ANTICOAGULANTS 08/14/[address] active 11 MAJOR DEPRESSIVE DISORDER, RECURRENT SEVERE WITHOUT PSYCHOTIC FEATURES 08/14/[address] active 12 NONINFECTIVE GASTROENTERITIS AND COLITIS, UNSPECIFIED 08/14/[address] active 13 OBESITY, UNSPECIFIED 08/14/[address] active 14 OBSTRUCTIVE SLEEP APNEA (ADULT) (PEDIATRIC) 08/14/[address] active 15 ORTHOSTATIC HYPOTENSION 08/14/[address] active 16 PERSONAL HISTORY OF OTHER MENTAL AND BEHAVIORAL DISORDERS 08/14/[address] active 17 POST-TRAUMATIC STRESS DISORDER, UNSPECIFIED 08/14/[address] active 18 UNSPECIFIED ASTHMA, UNCOMPLICATED 08/14/[address] active Reason for Referral No Reasons for Referral Entered Social History Social History Observation Description Start Date End Date Code Code System Current Smoking Status Tobacco smoking consumption unknown 565863487 SNOMED CT Sex Assigned At Female 1955 14331-6 [facility] Vital Signs Code Code System Vitals Name Values and Units Timing Information 95296-3 [facility] Pain Level Value=4.0 09/05/2022 58406-6 [facility] O2 % BldC Oximetry Value=96.0 Units= % 09/04/2022 8310-5 [facility] Body Temperature Value=97.7 Units= F 09/04/2022 9279-1 [facility] Respiratory Rate Value=18.0 Units=/m in 09/04/2022 8462-4 [facility] Blood Pressure-Diastolic Value=65 Un its=mmHg 09/04/2022 8480-6 [facility] Blood Pressure-Systolic Pipcg=872 Un its=mmHg 09/04/2022 8867-4 [facility] Heart rate Mfizh=921.0 Units=/min 09/04/2022 70704-7 [facility] Weight Vbvst=609.0 Units=Lbs 07/2022 8302-2 [facility] Height Value=62.0 Units=Inches 08/14/2022
--- OUTSIDE RECORDS SUMMARY | 2024-06-25 09:59 | XMS_ITS | Clinical Summary ---
Author Organization [facility] Address [address] [place] [address] Care Team Providers Care Psychology Intern Name Role Phone None Reported, Pcp Primary Care Provider Unavail able Source Comments Patient records contain information from all sites at [facility]. For routine questions regarding patient records, call [phone] during business hours, M-F 8:00 AM - 5:00 PM Central Time. Record requests for emergency care only can be directed to [phone] at any time.[facility] Allergies Active Allergy Reactions Criticality Noted Date Comments Ethyl Alcohol Anaphylaxis,Other (see comments) High 08/29/2015 All hand sanitizers Iodinated Contrast Media Anaphylaxis,Rash High 05/26/2014 Pt given Epi Pen and sent to ER post injection CT Contrast with pre medication given to patient prior to Contrast injection. short of breath Ioxaglate Sodium Anaphylaxis High 08/04/2015 CT DYE: Pt given Epi Pen and sent to ER post injection CT Contrast with pre medication given to patient prior to Contrast injection. Nitrofurantoin Other (see comments) 10/28/2014 Congestion in lungs- Sulfa (Sulfonamide Antibiotics) Rash,Other (see comments) Low 10/15/2013 Medications * This document contains information received from the source organization and may not represent a complete record from that organization. albuterol 90 mcg/actuation inhaler Inhale 2 puffs as needed for wheezing or shortness of breath. 07/25/19 17 Active fluticasone propionate (FLONASE) 50 mcg/actuation nasal spray Administer 2 sprays into affected nostril(s) as needed. 12/29/19 19 Active venlafaxine (EFFEXOR) 75 mg tablet Take 75 mg by mouth as directed. Along with 150 mg Daily - Active famotidine (PEPCID) 40 mg tablet Take 40 mg by mouth at bedtime. 05/20/19 21 Active miscellaneous medical supply [facility] CPAP machine for home use at pressure 10-20 cm, full face mask x1/3month with a full face cushion x1/mo 03/27/20 20 Active fluticasone propion-salmetero L (ADVAIR HFA) 115-21 mcg/actuation inhaler Inhale 2 puffs daily as needed. 04/06/19 21 Active dicyclomine (BENTYL) 10 mg capsule Take 10 mg by mouth as needed. 10/03/19 22 Active loperamide (IMODIUM A-D) 2 mg capsule Take 2 mg by mouth as needed for diarrhea. 10/03/19 22 Active montelukast (SINGULAIR) 10 mg tablet Take 10 mg by mouth daily. 10/03/19 22 Active ondansetron (ZOFRAN) 8 mg tablet 8 mg as needed for nausea. 10/03/19 22 Active omeprazole (PriLOSEC) [address] capsule Take 40 mg by mouth daily. 10/04/19 22 Active cevimeline (EVOXAC) 30 mg capsule Take 30 mg by mouth 3 (three) times a day. 10/19/19 22 Active midodrine (PROAMATINE) 5 mg tablet Take 1 tablet (5 mg total) by mouth 2 (two) times a day. 01/03/20 23 Active Additional Information Patient taking differently:5 mg oralDaily, Reported on 03/11/2024 dextroamphetamine -amphetamine (ADDERALL) 10 mg tablet Take 10 mg by mouth daily. IN THE AFTERNOON - (patient also takes 10 mg of Adderall XR every morning) 08/29/19 23 Active amphetamine-dextr oamphetamine (ADDERALL XR) 10 mg 24 hr capsule Take 10 mg by mouth every morning. Also takes Adderall 10 mg (non XR) in the afternoon - Active doxepin (SINEquan) 10 mg capsule Take 10 mg by mouth at bedtime. 02/25/20 23 Active LORazepam (ATIVAN) 0.5 mg tablet Take 0.5 mg by mouth at bedtime as needed. 08/29/19 23 Active trazodone HCl (TRAZODONE ORAL) Take 75 mg by mouth at bedtime. 12/27/19 23 Active divalproex (DEPAKOTE SPRINKLES) [address] sprinkle capsule Take 4 capsules by mouth 3 (three) times a day. 05/28/19 24 Active metoprolol succinate (TOPROL-XL) 25 mg 24 hr tablet Take 25 mg by mouth daily. Active venlafaxine XR (EFFEXOR-XR) 150 mg 24 hr capsule Take 150 mg by mouth daily. 07/25/19 24 Active fludrocortisone (FLORINEF) 0.1 mg tablet Take 1 tablet (0.1 mg total) by mouth daily. 90 tablet 3 08/26/19 24 Active multivit-minerals /folic acid (ADULT MULTIVITAMIN GUMMIES ORAL) Take 1 tablet by mouth daily. Active hydrocortisone (Cortef) 10 mg tablet Do not take when you are well. When you are sick, take 2 tablets (20 mg) upon waking and 1 tablet (10 mg) about 6-7 hours later. Stop taking once you are feeling better. 50 tablet 1 03/18/20 24 Active dexAMETHasone (Decadron) 4 mg/mL injectionIndicati ons:Other Adrenocortical Insufficiency (HCC) Inject 1 mL (4 mg total) intramuscularly as directed. Inject 1 ML IM daily when unable to take oral steroids 1 mL 3 03/18/20 24 Active syringe with needle (Syringe 3cc/25Gx1) 3 mL 25 gauge x 1 syringeIndication s:Other Adrenocortical Insufficiency (HCC) 1 each as directed. For use with steroid injection 2 each 3 03/18/20 24 Active Active Problems Problem Noted Date Diagnosed Date Syncope 09/16/2019 Migraine Headache 12/21/2018 Posttraumatic Stress Disorder Prolonged 12/22/19 19 Borderline Personality Disorder 12/21/2018 Loss Hearing Sensorineural Bilateral 06/05/2018 Tinnitus Bilateral 06/05/2018 Personality Disorder 05/09/2017 Personal History Of Other Mental And Behavioral Disorders 06/09/2015 Overview (01/11/2021): History of post traumatic stress disorder, in remission Other Specified Depressive Episodes 03/30/2015 Overview (01/11/2021): Depression, involutional (HRC), in remission Encounter For Screening For Malignant Neoplasm O f Cervix 09/12/2014 Overview (01/11/2021): 2010 NILM 2014 nilm, hpv negative PLAN: Cotest 08/2019 ICD 10 Dissociative And Conversion Disorder Unspecified 08/11/2014 Malaise 07/26/2014 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 Asthma With Acute Exacerbation 06/29/2014 Anxiety Generalized Disorder 05/12/2014 Overview (01/11/2021): Generalized anxiety disorder (HRC) in remission Depression Major 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 04/23/2014 Diverticulitis 10/16/2013 Vertigo 10/16/2013 Obesity Unspecified 02/08/2012 Overview (01/11/2021): overweight Gastroesophageal Reflux Disease NOS 10/02/2005 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 Fatigue Unsteadiness Gait Disorder Non Orthopedic Movement Disorder Immunizations Immunization Administration Dates Next Due SARS-COV-2 (COVID-19) - MODE RNA (12 YEARS AND OLDER) Fall Seasonal 01/26/2024 SARS-COV-2 (COVID-19) - PFIZ ER (Discontinued)(12 years or older) 05/09/2020,04/18/2020 Family History Medical History Relation Name Comments Alcohol abuse Brother Ed Learning disorder Daughter 1 Amy FAS Learning disorder Daughter 2 Jayne Autism Psychiatric Father scrooge Other cancer Maternal Grandmother Roxannajose [place] Stroke Maternal Grandmother Roxanna [place] Alcohol abuse Mother mom Liver disease Mother mom Lung cancer Mother's Brother Otoniel [place] Anxiety disorder Sister Delica Depression Sister Delica Alcohol abuse Son 1 que Asthma Son 1 que Genetic disease Son 1 que [place] Rheum arthritis Son 1 que ADD Son 2 [place] Relation Name Status Comments Brother Ed Alive Daughter 1 Amy Alive Daughter 2 Ajyne Alive Father scrooge Alive Maternal Grandmother Roxanna [place] Alive Mother mom Alive Mother's Brother Otoniel [place] Alive Sister Delica Alive Son 1 que Alive Son 2 [place] Alive Social History Tobacco Use Types Packs/Day Years Used Date Smoking Tobacco: Never Passive Smoke Exposure: Never Smokeless Tobacco: Never Tobacco Cessation:Counseling Given: Not Answered Alcohol Use Standard Drinks/Week Comments Never 0 (1 standard drink = 0.6 oz pur e alcohol) [facility] Utilities Answer Date Recorded In the past 12 months has th e electric, gas, oil, or water company threatened to shut off services in your home? Yes 03/11/2024 Humiliation, Afraid, Rape, and Kick questionnair e Answer Date Recorded Within the last year, have y ou been afraid of your partner or ex-partner? No 12/23/2021 Within the last year, have y ou been humiliated or emotionally abused in other ways by your partner or ex-partner? No Within the last year, have y ou been kicked, hit, slapped, or otherwise physically hurt by your partner or ex-partner? No 12/23/2021 Within the last year, have y ou been raped or forced to have any kind of sexual activity by your partner or ex-partner? No 12/23/2021 Social Connection and Isolat ion Panel [NHANES] Answer Date Recorded In a typical week, how many times do you talk on the phone with family, friends, or neighbors? Three times a week 12/23/2021 How often do you get togethe r with friends or relatives? Once a week 12/23/2021 How often do you attend chur or nondenominational services? More than 4 times per year 12/23/2021 Do you belong to any clubs o r organizations such as episcopal groups, unions, fraternal or athletic groups, or school groups? No 12/23/2021 How often do you attend meet ings of the clubs or organizations you belong to? Never 12/23/2021 Are you , , di vorced, , never , or living with a partner? 12/23/2021 AUDIT-C Answer Date Recorded Q1: How often do you have a drink containing alc ohol? Never 12/23/2021 Average Number of Drinks Not on file 022 Frequency of Binge Drinking Not on file 11/30 Overall Financial Resource Strain (CARDIA) Answe r Date Recorded How hard is it for you to pa y for the very basics like food, housing, medical care, and heating? Somewhat hard 01/01/2023 PHQ-2 Answer Date Recorded PHQ-2 Score 2 01/21/2024 [facility] - Occupational Stress Questionnaire Answer Date Recorded Do you feel stress - tense, restless, nervous, or anxious, or unable to sleep at night because your mind is troubled all the time - these days? To some extent 12/23/2021 Exercise Vital Sign Answer Date Recorde d On average, how many days pe r week do you engage in moderate to strenuous exercise (like a brisk walk)? 1 day 03/11/2024 On average, how many minutes do you engage in exercise at this level? 30 min 03/11/2024 Hunger Vital Sign Answer Date Recorded Within the past 12 months, y ou worried that your food would run out before you got the money to buy more. Sometimes true Within the past 12 months, t he food you bought just didn't last and you didn't have money to get more. Sometimes true 02/2024 PRAPARE - Transportation Answer Date Re corded In the past 12 months, has l ack of transportation kept you from medical appointments or from getting medications? No 02/28 In the past 12 months, has l ack of transportation kept you from meetings, work, or from getting things needed for daily living? No 03/11/2024 Depression Answer Date Recor ded PHQ-9 Total Score (max 27) 5 01/11 Nutrition Answer Date Recorded On average, how many serving s of fruits and vegetables do you eat per day (serving size is equal to 1 cup or approximately the size of a tennis ball)? 0-2 03/11/2024 Dental Answer Date Recorded Dental: Regular Dentist Yes 12/24/19 Employment Answer Date Recorded Employment status Permanently disabled Housing Stability Answer Date Recorded What is your living situation today? I have a st [place] place to live 03/11/2024 Education Answer Date Recorded What is the highest level of school you have completed or the highest degree you have received? Master's degree (e.g., MA, MS, Tc, MEd, [employer], [employer]) 09/07/2018 Comments Unknown Sex and Gender Information Value Date Recorded Sex Assigned at Female 01/02/2021 11:08 AM CDT Legal Sex Female 10:48 AM CDT Gender Identity Female 03/11/2019 12:39 PM COMPLIANCE EXAMINER Sexual Orientation Straight 03/11/2019 12 :39 PM COMPLIANCE EXAMINER Last Filed Vital Signs Vital Sign Reading Time Taken Comments Blood Pressure 118/58 03/16/2024 10:38 AM COMPLIANCE EXAMINER Pulse 93 03/16/2024 10:38 AM COMPLIANCE EXAMINER Temperature 36.6 C (97.9 F) 01/08/2021 11:04 AM CDT Respiratory Rate - - Oxygen Saturation - - Inhaled Oxygen Concentration - - Weight 91.7 kg (202 lb 2.6 oz) 03/16/2024 10:38 AM COMPLIANCE EXAMINER Height 160 cm (5' 2.99) 03/16/2024 10:38 AM COMPLIANCE EXAMINER Body Mass Index 35.82 03/16/2024 10:38 AM COMPLIANCE EXAMINER Plan of Treatment Health Maintenance Due Date Last Done Comments CT Colonography 1957 Cologuard 1957 Colonoscopy 1957 Colorectal Cancer Screening 1957 FIT 1957 Hepatitis C Screening 1957 RSV vaccine - (32-36 weeks) or 60+ years (1 - Risk 60-74 years 1-dose series) 2017 Influenza Vaccine (#1) 2023 , 01/18/2022, 12/23/2020, Additional history exists Mammogram 02/28/2024 02/27/2023, 01/31, 12/24/2021, Additional history exists Depression Screening (Annual PHQ-2) 03/31/2024 Fall Risk Screen (Annual) 03/31/2024 COVID-19 Vaccine ( season) 2024 01/26/2024, 01/21/2023, 01/18/2022, Additional history exists Fasting Glucose for Diabetes Screening 07/07/2026 07/08/2023, 06/24/2023, 06/09/2023, Additional history exists DTaP,Tdap,and Td Vaccines (10 - Td or Tdap) 12/27/2028 12/27/2018, 10/26/2014, 09/28/2014, Additional history exists Zoster Vaccines Completed 09/15/2021, 07/04/2021 Pneumococcal vaccine (50+ years) Completed 03/08/2022, 02/07/2012 Cervical/Vaginal Cancer Screening Discontinued 04/05/2022, 09/06/2014 Bone Density Scan (Osteoporosis Screen) Discontinued 02/27/2023 IPV Vaccines Aged Out No longer eligi ble based on patient's age to complete this topic Medical Devices Implanted Type Area Platform Engineer Device Identifier Shelf Expiration Date Model / Serial / Lot Hardware E.G. Pins/Screws/Ld s-03/31/2022 Implanted:03/31 (Quantity not on file) Hardware e.g. pins/screws/ro ds Right: Hip Description:Pins and Screws - Implantable Loop Recorder-2018 Implanted:03/17 (Quantity not on file) Implantable Loop Recorder Left: Chest Medtronic [id number] / [id number] S / Insurance [facility] Care Teams Psychology Intern Relationship Specialty Start Date End Date None Reported, Pcp PCP - General Family Medicine 01/26/24
--- OUTSIDE RECORDS SUMMARY | 2024-06-25 09:59 | XMS_ITS | Encounter Summary ---
Author Organization [facility] Address [address] [place] [address] Care Team Providers Care Return To Vendor Name Role Phone Gaby Fleming MD Primary Care Provider [phone] Encounter Details Date Type Department Care Team (Latest Contact Info) Description 06/06/1995 Orders Only [place] [address] Social History Tobacco Use Types Packs/Day Years [...] on filedocumented in this encounter Care Teams Return To Vendor Relationship Specialty Start Date End Date Gaby Fleming MD [address] [place] [address] PCP - General 01/29/06 documented as of this encounter
--- OUTSIDE RECORDS SUMMARY | 2024-06-25 09:59 | XMS_ITS | CCD ---
Author Organization Unknown Care Team Providers Care Spot Worker Name Role Phone Data Deliverables Manager, [place] Primary Care Provider Unava ilable Unavailable Chronic Care Management Unavaila ble Summary Purpose DataExchange Insurance Providers Payer name Policy type / Coverage type Covered republican ID Effective Begin Date Effective End Date [facility] Commercial Insurance [id number] Unknown Unkn own Family History Family History data not found Medication Administered No Medication Administered data Reason For Visit No Reason For Visit data
--- OUTSIDE RECORDS SUMMARY | 2024-06-25 09:59 | XMS_ITS | Encounter Summary ---
Author Organization [facility] Address [address] [place] [address] Care Team Providers Care Tire Mold Engraver Name Role Phone Gaby Fleming MD Primary Care Provider [phone] Encounter Details Date Type Department Care Team (Latest Contact Info) Description 06/30/1997 Orders Only Arielle Caraballo, DO [address] [place] [address] Social History Tobacco Use Types Packs/Day Years [...] on filedocumented in this encounter Care Teams Tire Mold Engraver Relationship Specialty Start Date End Date Gaby Fleming MD [address] [place] [address] PCP - General 01/29/06 documented as of this encounter
--- OUTSIDE RECORDS SUMMARY | 2024-06-25 09:59 | XMS_ITS | Encounter Summary ---
Author Organization [facility] Address [address] [place] [address] Care Team Providers Care Professor Of Business Name Role Phone Gaby Fleming MD Primary Care Provider [phone] Encounter Details Date Type Department Care Team (Latest Contact Info) Description 06/09/2014 Consent for Procedure/Treatme nt [facility] [address] [place] [address] METHACHOLINE CHALLENGE TEST Social History Tobacco Use Types Packs/Day Years [...] on filedocumented in this encounter Care Teams Professor Of Business Relationship Specialty Start Date End Date Gaby Fleming MD [address] [place] [address] PCP - General 01/29/06 documented as of this encounter
--- OUTSIDE RECORDS SUMMARY | 2024-06-25 09:59 | XMS_ITS | Encounter Summary ---
Author Organization Replaced by [facility] Address [address] [place] [address] Care Team Providers Care Cylinder Press Feeder Name Role Phone Gaby Fleming MD Primary Care Provider [phone] Encounter Details Date Type Department Care Team (Late st Contact Info) Description 05/13/2014 Emergency Room External to [facility], Provider EAR PAIN Social History Tobacco Use Types Packs/Day Years [...] on filedocumented in this encounter Care Teams Cylinder Press Feeder Relationship Specialty Start Date End Date Gaby Fleming MD [address] [place] [address] PCP - General 01/29/06 documented as of this encounter
--- OUTSIDE RECORDS SUMMARY | 2024-06-25 09:59 | XMS_ITS | Encounter Summary ---
Author Organization [facility] Address [address] [place] [address] Care Team Providers Care Director Patient Accounting Name Role Phone Gaby Fleming MD Primary Care Provider [phone] Encounter Details Date Type Department Care Team (Latest Contact Info) Description 05/25/1998 Orders Only Karan Garcia MD [address] [place] [address] Social History Tobacco Use Types Packs/Day Years [...] on filedocumented in this encounter Care Teams Director Patient Accounting Relationship Specialty Start Date End Date Gaby Fleming MD [address] [place] [address] PCP - General 01/29/06 documented as of this encounter
--- OUTSIDE RECORDS SUMMARY | 2024-06-25 09:59 | XMS_ITS | Clinical Summary ---
Author Organization [facility] Address [address] [place] [id number] Care Team Providers Care Measurement Analyst Name Role Phone Gaby Fleming Unavailable [phone] [facility], Harvey Unavailable [phone] Holli Thomas DO Unavailable [phone] Angi Estevez DO Primary Care Provider [phone] Allergies Active Allergy Reactions Criticality Noted Date Comments Iodinated Contrast Media Anaphylaxis High 05/26/2014 Pt given Epi Pen and sent to ER post injection CT Contrast with pre medication given to patient prior to Contrast injection. Ioxaglate Sodium Anaphylaxis High 08/04/2015 CT DYE: Pt given Epi Pen and sent to ER post injection CT Contrast with pre medication given to patient prior to Contrast injection. 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 Patient taken by ambulance to ED Medications FLINTSTONES MULTIVITAMIN ORALIndications: supplement Take 1 tablet by mouth once daily. Active inhalational spacing deviceIndication s:Moderate persistent asthma, unspecified whether complicated (HC) For home use. 1 Device 09/01/19 Active cevimeline (EVOXAC) 30 mg capsuleIndicatio ns:dry mouth Take 30 mg by mouth three times daily. 0 10/19/19 22 Active Diaper,Brief, Adult,Disposable Indications:Cont inuous leakage of urine For home use. 3 briefs per day. 84 Each 2 04/03/19 Active venlafaxine (EFFEXOR XR) 150 mg Extended-Release capsule Take 300 mg by mouth once daily with a meal. 04/24/19 Active dextroamphetamin e-amphetamine (ADDERALL XR) 10 mg Extended-Release capsule Take 10 mg by mouth once daily. 08/29/19 Active dextroamphetamin e-amphetamine (ADDERALL) 10 mg tablet Take 10 mg by mouth once daily. 08/29/19 Active LORazepam (ATIVAN) 0.5 mg tab Take 0.5 mg by mouth once daily if needed. 08/29/19 Active divalproex sprinkles (DEPAKOTE SPRINKLES) 125 mg capsuleIndicatio ns:mood disorder Take 4 Capsules (500 mg) by mouth two times daily. 180 Capsule 3 09/10/19 Active fludrocortisone (FLORINEF) 0.1 mg tabletIndication s:Farhat's disease (HC) Take 1 Tablet (0.1 mg) by mouth once daily. 90 Tablet 3 09/10/19 Active durable medical equipment (DME)Indications :Imbalance,Class 1 obesity without serious comorbidity with body mass index (BMI) of 32.0 to 32.9 in adult, unspecified obesity type Shoe horn 1 Each 10/08/19 Active miscellaneous medical supply (Blood Pressure Cuff) miscIndications: Hypotension, unspecified hypotension type As directed. 1 unit 10/08/19 Active dicyclomine (BENTYL) 10 mg capsuleIndicatio ns:irritable bowel syndrome Take 1 Capsule (10 mg) by mouth every 6 hours if needed (abdominal cramping/diar davidson). 90 Capsule 2 02/27/20 23 Active hydrocortisone (CORTEF) 5 mg tablet Take 15 mg by mouth two times daily with meals. Take 3 tablets (15 mg total) by mouth as directed. 20 mg AM and 10 mg PM. Then 15 mg AM and 10 mg PM for 1 week. Then 15 mg AM and 5 mg PM for one week. Then 10 mg AM and 5 mg PM. Double dose in times of illness. 400 tabs for 90 day supply. 05/16/19 Active doxepin (SINEQUAN) 10 mg capsule Take 10 mg by mouth once daily. Active famotidine (PEPCID) 40 mg tabletIndication s:Chronic GERD TAKE 1 TABLET BY MOUTH AT BEDTIME 90 Tablet 3 09/18/19 24 Active traZODone (DESYREL) 150 mg tabletIndication s:insomnia associated with depression Take 0.5 Tablets (75 mg) by mouth at bedtime. 45 Tablet 3 09/18/19 24 Active fluticasone propion-salmeter oL (Advair Diskus) 500-50 mcg/Dose diskus inhalerIndicatio ns:Mild persistent asthma without complication (HC) Inhale 1 Puff by mouth two times daily. 3 Each 3 09/18/19 24 Active albuterol HFA (PRO-AIR; VENTOLIN; PROVENTIL) 90 mcg/actuation inhalerIndicatio ns:acute asthma attack Inhale 2 Puffs by mouth every 4 hours if needed for Shortness of Breath 1st choice or Wheezing 1st choice. 1 Each 11 09/18/19 24 Active montelukast (Singulair) 10 mg tabletIndication s:maintenance therapy for asthma Take 1 Tablet (10 mg) by mouth at bedtime. 90 Tablet 9 09/18/19 24 Active loperamide (IMODIUM) 2 mg capsuleIndicatio ns:Chronic diarrhea 2 CAPS BY MOUTH WITH 1ST LOOSE STOOL, THEN 1 CAP W/ EACH SUBSEQUENT LOOSE STOOL.MAX 16MG IN 24HRS 48 Capsule 10/21/19 24 Active omeprazole (PRILOSEC) 40 mg Delayed-Release capsuleIndicatio ns:Gastroesophag eal reflux disease without esophagitis Take 1 tablet by mouth every other day. 45 Capsule 3 11/10/19 24 Active metoprolol succinate 25 mg Sustained-Releas e tabletIndication s:Sinus tachycardia TAKE 1 TABLET BY MOUTH EVERY DAY 90 Tablet 06/26/19 25 Active metoprolol succinate (TOPROL XL) 25 mg Sustained-Releas e tabletIndication s:Sinus tachycardia TAKE 1 TABLET BY MOUTH EVERY DAY 90 Tablet 01/19/20 24 025 Discontinued Hospital, Clinic, or Other Facility Administered Medication Ordered Dose Route Frequency Start Date End Date Status EPINEPHrine (EPIPEN) injection 0.6 mgIndications:Anaphylaxis, sequela 0.6 mg IM ONE TIME PRN 09/14/2020 Active Active Problems Problem Noted Date Diagnosed Date Age-related osteoporosis wit h current pathological fracture with delayed healing 03/19/2023 Adrenal insufficiency 09/09/2022 Overview (09/09/2023): Presumed to be secondary adrenal insufficiency; following with Dr. 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 Formerly known as conversion disorder. 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 Overview (01/23/2022): Depression, involutional (HRC), in remission Dissociative episodes 08/11/2014 Disuse syndrome 07/26/2014 Imbalance 07/26/2014 Vocal cord dysfunction 07/25/2014 Anxiety, generalized 05/12/2014 Depression, major, severe recurrence 04/23/2014 Airway hyperreactivity 03/12/2005 Non-toxic uninodular goiter 03/27/2004 Overview (03/07/2023): S/p partial thyroidectomy Resolved Problems Problem Noted Date Diagnosed Date Resolved Date Pap smear for cervical cancer screening 04/30/2022 03/07/2023 Overview (04/30/2022): 03/2022 NIL/HPV Negative Plan: Routine screening Convulsions, unspecified convulsion type 01/18/2022 03/07/2023 Overview (01/18/2022): Non epileptic. Part of her FND. Syncope 09/16/2019 03/07/2023 Neurosis, posttraumatic 10/03/201412/31 Depression, neurotic 05/12/2014 017 Panic disorder without agoraphobia 12/30/2013 01/28/2017 Adiposity 02/08/2012 03/07/2023 Acid reflux 10/02/2005 03/21/2022 Hiatal hernia with GERD without esophagitis 01/23/2022 Umbilical hernia without obs truction and without gangrene 02/11/2022 Encounters Date Type Department Care Team Description 06/23/2024 Refill [facility] [address] [place] [address] Shaqra Angi Netta, DO Refill Request (Metoprolol Succinate) 06/15/2024 Nurse Triage [facility] [address] [place] [address] Lewqra Angi Netta, DO Urinary Problem 05/28/2024 10:30 AM FIRE INFORMATION OFFICER Ancillary Procedure [address] [address] 05/27/2024 Travel 05/20/2024 10:30 AM FIRE INFORMATION OFFICER Office Visit [address] [address] Yony Gao MD Consult (Diarrhea 3-6 x daily, lower abdominal cramping x years, sometimes stays in bed due to abdominal pain, taking imodium & dicyclomine daily, severe heartburn x 4 months ) 05/19/2024 Travel 04/28/2024 Patient Outreach [facility] Care Management - Advanced Care Team [facility] [place] [address] Ella Vargas Medication Management (CANCEL AND R/S CMR - PHARMD OUT OF OFFICE) 04/26/2024 Telephone [facility] [address] [place], [place] [id number] Marilyn Vanegas, PharmD Pharmacist Medication Management 04/25/2024 Travel from Last 3 Months Immunizations Immunization Administration Dates Next Due COVID-19 VACCINE SPIKEVAX (M ODERNA 50MCG/0.5ML) 12YO+ PFS 01/21/2023 COVID-19 vaccine (CREATETHE GROUP-Bio NTech 30mcg/0.3mL) 12YO+ BIVALENT PF, MDV 01/18/2022 COVID-19 vaccine (CREATETHE GROUP-Bio NTech 30mcg/0.3mL) 12YO+ SANTI-SUCROSE PF, MDV 09/15/2021 COVID-19 vaccine (CREATETHE GROUP-Bio NTech 30mcg/0.3mL) PF, MDV 09/15/2021,01/01/2021,05/09/2020,2020 DT (Age < 7 years) 10/22/1982 DTaP 09/28/2014 Dtap-5 Pertussis Antigens 09/28/2014 HepA-HepB (Twinrix) 01/17/2016,06/01/2002,2001 Influenza Virus, Unspecified 12/29/2016,01/10/19 98,02/01/1997 Influenza, IIV3 (Age >=3 years) 12/30/19 18,12/09/2017,12/06/2015,2014,12/07/2013,12/16/2012,01/10/2012,1 ,01/09/2010,12/29/2008, 008,01/09/2007,01/15/2006,01/11/2005,,02/02/2003,02/04/2002,02/05/20 01,02/12/2000,01/18/1999,01/10/1998,06/1996 Influenza, IIV4 01/18/2022,,12/09/2019,2018,12/09/2017,12/06/2015,12/22/2014,0 12/07/2013 Influenza, IIV4 (=>6mos) MDV 12/16/2012 Influenza, Inactivated AIIV4 (Age 65+ Years) Preserv Free 01/21/2023 Influenza,CCIIV4 PRESERV FREE 12/29/2016 Pneumococcal Conj 20-valent (Prevnar 20) 03/08/2022 Pneumococcal Poly,23-Valent (Pneumovax) 02/07/2012 Td (Age >=7 Years) 09/30/2001,03/30/1990 Td, Preservative Free (age > = 7 Years) 09/30/2001,03/30/1990 Tdap 12/27/2018,10/26/2014,05/15/2010 Tuberculin Skin Test, Unspecified 10/02/2001 Zoster (Shingrix-RZV, recombinant) 09/15/2021, Family History Medical History Relation Name Comments Unknown Father Alcoholism Mother Anesthesia Problem No Family History Blood Disease No Family History Cancer-breast No Family History Cancer-ovarian No Family History Relation Name Status Comments Brother 1 Alive Brother 2 Alive Brother 3 Alive Brother 4 Alive Father Half-Sister Alive Mother Sister Alive Social History Tobacco Use Types Packs/Day Years Used Date Smoking Tobacco: Never Smokeless Tobacco: Never Tobacco Cessation:Counseling Given: Yes Alcohol Use Standard Drinks/Week Comments No 0 (1 standard drink = 0.6 oz pur e alcohol) PHQ-2 Answer Date Recorded PHQ-2 TOTAL SCORE 2 10/21/2023 Social Connections Answer Date Recorded Do you often feel lonely or isolated from those around you? 0 06/09/2023 Financial Resource Strain Answer Date R ecorded Difficulty of Paying Living Expenses 3 06/09/2023 Difficulty of Paying Living Expenses Not on file 06/09/2023 Food Insecurity Answer Date Recorded Do you worry your food will run out before you are able to buy more? 1 06/09/2023 Transportation Needs Answer Date Record ed Does lack of transportation keep you from medica l appointments? 1 06/09/2023 Does lack of transportation keep you from work, meetings or getting things that you need? 1 06/09/2023 Housing Stability Answer Date Recorded What is your housing situation today? 1 06/09/2023 Utilities Answer Date Recorded Do you have trouble paying f or utilities (for example, heat, electricity, water, phone)? 1 06/09/2023 Comments No Sex and Gender Information Value Date Recorded Sex Assigned at Female 11/19/2021 5:38 PM CDT Legal Sex Female 7:01 AM FIRE INFORMATION OFFICER Gender Identity Female 11/19/2021 5:38 PM CDT Sexual Orientation Straight 11/19/2021 5: 38 PM CDT Obstetrics History Para Term AB IAB SAB Ectopic Multiple Livin g Live Births 0 0 0 0 0 0 0 0 Last Filed Vital Signs Vital Sign Reading Time Taken Comments Blood Pressure 124/77 05/20/2024 10:35 AM FIRE INFORMATION OFFICER Pulse 110 05/20/2024 10:35 AM FIRE INFORMATION OFFICER Temperature 36.9 C (98.5 F) 09/09/2023 11:10 AM CDT Respiratory Rate 18 09/18/2023 11:0 4 AM CDT Oxygen Saturation 97% 05/20/2024 10: 35 AM FIRE INFORMATION OFFICER Inhaled Oxygen Concentration - - Weight 89.3 kg (196 lb 12.8 oz) 025 10:35 AM FIRE INFORMATION OFFICER Height 158.5 cm (5' 2.4) 09/18/2023 11 :04 AM CDT Body Mass Index 35.54 09/18/2023 11:04 AM CDT Plan of Treatment Health Maintenance Due Date Last Done Comments RSV vaccine for adults or (1 - Risk 60-74 years 1-dose series) 2017 Influenza Vaccine (#1) 2023 , 01/18/2022, 12/23/2020, Additional history exists Colonoscopy through age 75 01/08/202401/07 (Completed outside of [facility]) Mammogram for age 45-75 02/28/2024 02/28/20, 12/24/2021, 12/29/2020 (Completed outside of [facility]) Medicare Wellness for age 65+ 03/07/2024 03/07/2023 COVID-19 vaccine series ( season) 2024 01/26/2024, 01/21/2023, 01/18/2022, Additional history exists BMI (ht and wt on same day) for age 18+ 09/17/2024 09/18/2023, 03/07/2023, 12/26/2022, Additional history exists Depression screening for age 12+ 10/20/2024 10/21/2023, 01/21/2023, 10/19/2021, Additional history exists Lipids for age 45-75 03/07/2028 03/07/2023, 10/19/19 22 Tetanus booster 12/27/2028 12/27/2018, 07/11/2014, 05/15/2010, Additional history exists Tdap Completed 12/27/2018, 09/29, 05/15/2010 Zoster (shingles) series for age 50+ Completed 09/15/2021, 07/04/2021 Hepatitis C screening for ag e 18-79 Completed 10/18/2021 Pneumococcal series for age 50+ Completed , 02/07/2012 DEXA/DXA scan for age 65+ Completed 02/27/2023 Medical Devices Implanted Type Area Structural Engineering Drafting Officer Device Identifier Shelf Expiration Date Model / Serial / Lot Mesh Hiatal 7x10cm Bio-A - [id number] Implanted:Qty: 1 on 01/22/2022 by Tamir Kimbrough ra, MD at [facility] N/A: Abdomen [employer] 09/17/2024 [id number] / / [id number] Procedures Procedure Name Priority Date/Time Associated Diagnosis Comments CT ABDOMEN PELVIS WO Routine 05/28/2024 10:13 AM FIRE INFORMATION OFFICER Chronic diarrhea RLQ abdominal pain LIPID PANEL W REFLEX MEASURED LDL Routine 03/07/2023 10:18 AM FIRE INFORMATION OFFICER Screening cholesterol level XR DXA BONE DENSITY 2 SITES AXIAL Routine 02/27/2023 11:35 AM FIRE INFORMATION OFFICER Postmenopausal XR MAMMO PATIENCE BILAT SCREEN Routine 02/27/2023 11:12 AM FIRE INFORMATION OFFICER Visit for screening mammogram ANTI HCV Routine 10/18/2021 12:14 PM CDT Need for hepatitis C screening test from Last 3 Months or Most Recently Relevant to Health Maintenance Results * CT ABDOMEN PELVIS WO (05/28/2024 10:13 AM FIRE INFORMATION OFFICER) Anatomical Region Laterality Modality Abdomen, Pelvis, AORTA, LIVER, SPLEEN Computed Tomography 05/28/2024 1:29 PM FIRE INFORMATION OFFICER Narrative 05/28/2024 1:29 PM FIRE INFORMATION OFFICER For Patients: As a result of the Cures Act, medical imaging exams and procedure reports are released immediately into your electronic medical record. You may view this report before your referring provider. If you have questions, please contact your health care provider. Indication: RLQ abdominal pain Chronic diarrhea abdominal pain, acute, nonlocalized Technique: Noncontrast CT abdomen and pelvis Please note that all CT scans at this facility use dose modulation, iterative reconstruction, and/or weight-based dosing when appropriate to reduce radiation dose to as low as reasonably achievable. Comparison: 03/21/2011 Findings: Metallic appearing density within the left medial breast tissue. Faint ground- glass density in the right lower lobe and within the lingula. No pleural effusion. Decreased attenuation of the hepatic parenchyma. Gallbladder absent. No biliary obstruction. Focal atrophy of the uncinate process of the pancreas. Calcified granulomas in the spleen. No splenomegaly. Normal adrenal glands. Simple left renal cysts. No hydronephrosis. No renal or ureteral stone. A few scattered sub cm mesenteric lymph nodes are again noted in the central mesenteric fat compatible with incidental mild mesenteric panniculitis. Mild vascular calcifications. Normal bladder, uterus and ovaries. Mild colonic diverticulosis. No acute diverticulitis. No evidence of inflammatory bowel disease. The appendix is not visualized and may be absent. Postoperative changes to the right proximal femur. No vertebral body compression fracture or significant degenerative change. Impression: Mild colonic diverticulosis. No acute inflammation. Hepatic steatosis. Right lower lobe and lingular pulmonary ground-glass densities could represent acute inflammation/infiltrate. Please note that all CT scans at this facility use dose modulation, iterative reconstruction, and/or weight-based dosing when appropriate to reduce radiation dose to as low as reasonably achievable. Dictated by Chito Castillo MD @ 05/28/2024 1:29:11 PM (Electronically Signed) Procedure Note Chito Castillo MD - 05/28/2024 For Patients: As a result of the 21st Century Cures Act, medical imagingexams and procedure reports are released immediately into your electronicmedical record. You may view this report before your referring provider.If you have questions, please contact your health care provider. Indication: RLQ abdominal pain Chronic diarrhea abdominal pain, acute, nonlocalized Technique: Noncontrast CT abdomen and pelvis Please note that all CT scans at this facility use dose modulation,iterative reconstruction, and/or weight-based dosing when appropriate toreduce radiation dose to as low as reasonably achievable. Comparison: 03/21/2011 Findings: Metallic appearing density within the left medial breast tissue. Faintground- glass density in the right lower lobe and within the lingula. Nopleural effusion. Decreased attenuation of the hepatic parenchyma.Gallbladder absent. No biliary obstruction. Focal atrophy of the uncinateprocess of the pancreas. Calcified granulomas in the spleen. Nosplenomegaly. Normal adrenal glands. Simple left renal cysts. Nohydronephrosis. No renal or ureteral stone. A few scattered sub cmmesenteric lymph nodes are again noted in the central mesenteric fatcompatible with incidental mild mesenteric panniculitis. Mild vascularcalcifications. Normal bladder, uterus and ovaries. Mild colonicdiverticulosis. No acute diverticulitis. No evidence of inflammatory boweldisease. The appendix is not visualized and may be absent. Postoperativechanges to the right proximal femur. No vertebral body compressionfracture or significant degenerative change. Impression: Mild colonic diverticulosis. No acute inflammation. Hepatic steatosis. Right lower lobe and lingular pulmonary ground-glass densities couldrepresent acute inflammation/infiltrate. Please note that all CT scans at this facility use dose modulation,iterative reconstruction, and/or weight-based dosing when appropriate toreduce radiation dose to as low as reasonably achievable. Dictated by Chito Castillo MD @ 05/28/2024 1:29:11 PM (Electronically Signed) us Yony Gao MD CT Final Res ult * (ABNORMAL) LIPID PANEL W REFLEX MEASURED LDL (03/07/2023 10:18 AM FIRE INFORMATION OFFICER) CHOLESTEROL,TOTAL 203(H) 100 - 199 mg/dL 03/07/2023 4:59 PM FIRE INFORMATION OFFICER [facility] Comment: Cholesterol, Total Reference Ranges Desirable <200 mg/dL Borderline 200-239 mg/dL High >=240 mg/dL TRIGLYCERIDES 150(H) <150 mg/dL 03/07/2023 4:59 PM FIRE INFORMATION OFFICER [facility] HDL CHOLESTEROL 73 >40 mg/dL 3 4:59 PM FIRE INFORMATION OFFICER [facility] NON-HDL CHOLESTEROL 130 <145 mg/dl 03/07/2023 4:59 PM FIRE INFORMATION OFFICER [facility] CHOL/HDL RATIO 2.78 <4.50 03/07/2023 4:59 PM FIRE INFORMATION OFFICER [facility] LDL CHOLESTEROL 100 <=130 mg/dL 03/07/2023 4:59 PM FIRE INFORMATION OFFICER [facility] VLDL CHOLESTEROL 30 <=30 mg/dL 03/07/2023 4:59 PM FIRE INFORMATION OFFICER [facility] PROVIDER ORDERED STATUS RANDOM 03/07/2023 4:59 PM FIRE INFORMATION OFFICER [facility] Blood BLOOD SPECIMEN / Unknown Venipuncture / Unknown 03/07/2023 10:18 AM FIRE INFORMATION OFFICER 03/07/2023 10:25 AM FIRE INFORMATION OFFICER us Angi Netta Lewbehzad DO CHEMISTRY Final Result [facility] [address] [place] [address], * (ABNORMAL) XR DXA BONE DENSITY 2 SITES AXIAL [37564.1] (02/27/2023 11:35 AM FIRE INFORMATION OFFICER) Anatomical Region Laterality Modality Spine, HIPS, HIPL, HIPR Other Impressions 03/10/2023 7:43 AM FIRE INFORMATION OFFICER Osteoporosis. RECOMMENDATIONS: The National Osteoporosis Foundation recommends pharmacologic treatment for patients with T-scores of -2.5 or less, patients with prior history of fragility fractures, or patients with 10-year probability of greater than 3% at hips or greater than 20% of suffering major osteoporotic fractures. Recommend continued optimization of calcium and vitamin D intake through dietary means and/or supplementation and regular exercise. Consider pharmacologic therapy for osteoporosis. Follow-up bone density reading in 2 years if therapy initiated to assess therapeutic efficacy. Marisa Orozco PA-C [facility] 03/10/2023 Narrative 03/10/2023 7:43 AM FIRE INFORMATION OFFICER For Patients: Results are automatically released to your [employer] account once available, in compliance with federal regulations. This means that you may see your results before your provider has had a chance to review them. Please allow 2-3 business days for your provider to comment on the results. XR DXA Bone Mineral Density (BMD) EXAM LOCATION: [address] [id number] PATIENT NAME: Sophie M Edward DATE OF : 1955 EXAM DATE: 02/27/2023 REQUESTING PROVIDER: Angi Estevez DO GENDER AT : female HEIGHT: 5' 2.4 (12/26/2022) WEIGHT: 190 lb 9.6 oz (01/21/2023) MENOPAUSAL STATUS: Postmenopausal RACE/ETHNICITY: White RISK FACTORS: Bariatric Surgery, Family History of Hip Fracture (parental), History of Fragility Fracture (at a major site), Steroid Medication (non-topical), and White Race CURRENT MEDICATION FOR BONE LOSS: NONE INDICATION: Post-Menopause COMPARISON DATE(S): None DXA scans are compared to prior studies for a patient only when the two (or more) studies were performed on the same scanner. It is not possible to compare data generated on one scanner to data from another because there are not standards in DXA equipment. This applies even if the two scanners are made by the same mold stripper. PROCEDURE: Dual-energy x-ray absorptiometry performed with routine technique. Reporting is completed in the form of a T-score. The T-score represents the standard deviation from peak bone mass based on young healthy adult. A Z-score is used for diagnosis in premenopausal women, and for men under the age of 50. FINDINGS: RESULT LUMBAR SPINE L2 - L4 BMD: 0.934 g/cm2 T-Score: - 2.3 Z-Score: - 1.4 Change from prior: None RESULTS FEMUR Left femoral neck BMD: 0.636 g/cm2 T-Score: - 2.9 Z-Score: - 1.9 Change from prior: None Left hip BMD: 0.732 g/cm2 T-Score: - 2.2 Z-Score: - 1.5 Change from prior: None WHO criteria: Normal: T-score at or above -1 SD Osteopenia: T-score between -1.1 and -2.4 SD Osteoporosis: T-score at or below -2.5 SD FRAX RISK CALCULATION (USED FOR OSTEOPENIA ONLY): 10-year probability of major osteoporotic fracture: 54.8%. 10-year probability of hip fracture: 13.0%. Angi Estevez DO DEXA Final Result * XR MAMMO PATIENCE BILAT SCREEN (02/27/2023 11:12 AM FIRE INFORMATION OFFICER) Anatomical Region Laterality Modality BREASTS, Breast Left, Breast Right Bilateral Mammography Impressions 02/27/2023 2:01 PM FIRE INFORMATION OFFICER There is no radiographic evidence for malignancy. Recommend annual mammograms. MAMMOGRAM ASSESSMENT: ACR 1 Negative PATIENTS: You will also receive a letter with your examination results in an easy to read format. If you have questions about your results, please contact your referring provider. Narrative 02/27/2023 2:01 PM FIRE INFORMATION OFFICER For Patients: As a result of the Cures Act, medical imaging exams and procedure reports are released immediately into your electronic medical record. You may view this report before your referring provider. If you have questions, please contact your health care provider. XR MAMMO PATIENCE BILAT SCREEN [[id number]] CLINICAL HISTORY: This is an asymptomatic 67 y.o. patient. INDICATION FOR EXAM: Mammogram Screening. TECHNIQUE: CC & MLO views were obtained. This study was evaluated with the assistance of Computer-Aided Detection. Breast Tomosynthesis was used in interpretation. COMPARISON FILM: [facility]: The breasts have scattered areas of fibroglandular density. There are no dominant masses, suspicious micro calcifications or areas of architectural distortion. Angi Estevez DO MAMMO Final Result * ANTI HCV (10/18/2021 12:14 PM CDT) HEPATITIS C ANTIBODY Non-React fiona Non-React fiona 10/19/2021 3:38 AM CDT [facility] Comment:Antibodies to HCV no t detected; does not exclude the possibility of exposure to HCV. Blood BLOOD SPECIMEN / Unknown Venipuncture / Unknown 10/18/2021 12:14 PM CDT 10/18/2021 12:16 PM CDT Betina BRANTLEY SEND OUTS Final Resu lt [facility] [address] [place] [address], [place] from Last 3 Months or Most Recently Relevant to Health Maintenance Insurance MEDICARE PART A HB ONLY [facility] Advance Directives Documents on File Type Date Recorded Patient Appeals Examiner Expl anation POLST 09/09/2022 POLST 03/13/2022 09/10/22 * Full Code (Latest Code Status on File) Date Activated Date Inactivated Comments 01/22/2022 8:58 AM 01/28/2022 12:08 PM Question Answer Comments Code Status Discussion: Reviewed Preferences * Full Code Date Activated Date Inactivated Comments 11/07/2021 11:19 AM 11/07/2021 3:57 PM Question Answer Comments Code Status Discussion: Reviewed Preferences * Full Code Date Activated Date Inactivated Comments 03/17/2019 1:02 PM 03/17/2019 3:50 PM Care Teams Measurement Analyst Relationship Specialty Start Date End Date Angi Estevez DO [facility] [place] [address] PCP - General Family Practice 10/08/22 Gaby Fleming Family [facility] 10/26/14 [facility] [address] [place] [address] 06/12/22 Holli Thomas DO [address] [facility] [address] [place] [address] Internal Medicine 09/13/22
--- OUTSIDE RECORDS SUMMARY | 2024-06-25 09:59 | XMS_ITS | Encounter Summary ---
Author Organization [facility] Address [address] [place] [address] Care Team Providers Care Meringuer Name Role Phone Gaby Fleming MD Primary Care Provider [phone] Encounter Details Date Type Department Care Team (Latest Contact Info) Description 06/23/1997 Orders Only Terese Panda MD [facility] [place] [address] Social History Tobacco Use Types Packs/Day Years [...] on filedocumented in this encounter Care Teams Meringuer Relationship Specialty Start Date End Date Gaby Fleming MD [address] [place] [address] PCP - General 01/29/06 documented as of this encounter
--- OUTSIDE RECORDS SUMMARY | 2024-06-25 09:59 | XMS_ITS | Encounter Summary ---
Author [facility] Address [address] [place] [address] Care Team Providers Care Pathology Tech Name Role Phone Gaby Fleming MD Primary Care Provider [phone] Encounter Details Date Type Department Care Team (Late st Contact Info) Description 10/24/2014 Consent for Procedure/Treatme nt [facility] Department RH [...] on filedocumented in this encounter Care Teams Pathology Tech Relationship Specialty Start Date End Date Gaby Fleming MD [address] [place] [address] PCP - General 01/29/06 documented as of this encounter
--- OUTSIDE RECORDS SUMMARY | 2024-06-25 09:59 | XMS_ITS | Encounter Summary ---
Author Organization [facility] Address [address] [place] [address] Care Team Providers Care Extension Service Specialist In Charge Name Role Phone Gaby Fleming MD Primary Care Provider [phone] Encounter Details Date Type Department Care Team (Late st Contact Info) Description 02/22/2014 Scanned History External to External, [place] [address] [facility] Social History Tobacco Use Types Packs/Day Years [...] on filedocumented in this encounter Care Teams Extension Service Specialist In Charge Relationship Specialty Start Date End Date Gaby Fleming MD [address] [place] [address] PCP - General 01/29/06 documented as of this encounter
--- OUTSIDE RECORDS SUMMARY | 2024-06-25 09:59 | XMS_ITS | Encounter Summary ---
Author Organization [facility] Address [address] [place] [address] Care Team Providers Care Accounting Associate Name Role Phone Gaby Fleming MD Primary Care Provider [phone] Encounter Details Date Type Department Care Team (Late st Contact Info) Description 01/22/2016 Correspondence None Inactive, Provider PAP EQUIPMENT PICK-UP [...] on filedocumented in this encounter Care Teams Accounting Associate Relationship Specialty Start Date End Date Gaby Fleming MD [address] [place] [address] PCP - General 01/29/06 documented as of this encounter
--- OUTSIDE RECORDS SUMMARY | 2024-06-25 10:00 | XMS_ITS | Clinical Summary ---
Author Organization [facility] Address [address] [place] [address]. [place] [address] Care Team Providers Care Shoder Filler Name Role Phone No Ref-Primary, Physician Primary Care Provider Allergies Active Allergy Reactions Criticality Noted Date Comments Benzalkonium Chloride 08/29/2015 All hand sanitizers Contrast Dye Anaphylaxis High 06/30/2014 Sulfa Antibiotics Rash Low 10/15/2013 Medications Multiple Vitamin (MULTIVITAMINS PO) Take 1 tablet by mouth daily Active omeprazole (PRILOSEC) 20 MG capsule Take 20 mg by mouth daily Active clonazePAM (KLONOPIN) 1 MG tablet 1 mg 4 times daily Active meclizine (ANTIVERT) 25 MG tabletIndicatio ns:Vertigo Take 1 tablet (25 mg) by mouth 3 times daily as needed for dizziness 30 tablet 0 4 Active albuterol (PROAIR HFA, PROVENTIL HFA, VENTOLIN HFA) 108 (90 BASE) MCG/ACT inhaler Inhale 2 puffs into the lungs every 6 hours as needed Active Montelukast Sodium (SINGULAIR PO) Take 10 mg by mouth every morning Active Mirtazapine (REMERON PO) Take 45 mg by mouth At Bedtime Active Venlafaxine HCl (EFFEXOR XR PO) Take 300 mg by mouth daily (with breakfast) Active Lansoprazole (PREVACID PO) Take 30 mg by mouth every morning (before breakfast) Active fluticasone-alden meterol (ADVAIR) 500-50 MCG/DOSE diskus inhaler Inhale 1 puff into the lungs every 12 hours Active NAPROXEN SODIUM PO Take 220 mg by mouth daily Active methocarbamol (ROBAXIN) 500 MG tablet Take 1 tablet (500 mg) by mouth 3 times daily as needed (muscle pain/spasm) 21 tablet 0 5 Active gabapentin (NEURONTIN) 300 MG capsule Take 1 tablet (300 mg) every night for 1-3 days, then 1 tablet twice daily for 1-3 days, then 1 tablet three times daily 90 capsule 0 5 Active Zolpidem Tartrate (AMBIEN PO) Active hyoscyamine (ANASPAZ/LEVSIN ) 0.125 MG tablet Take 1 tablet (125 mcg) by mouth every 4 hours as needed for cramping 12 tablet 0 6 Active Active Problems Problem Noted Date Diagnosed Date Asthma attack 06/29/2014 Diverticulitis 10/16/2013 Vertigo 10/16/2013 Family History Medical History Relation Comments Cancer - colorectal Father Diabetes Mother Hypertension Mother Relation Status Comments Father Mother Social History Tobacco Use Types Packs/Day Years Used Date Smoking Tobacco: Never Smokeless Tobacco: Never Alcohol Use Standard Drinks/Week Comments No 0 (1 standard drink = 0.6 oz pur e alcohol) Comments No Sex and Gender Information Value Date Recorded Sex Assigned at Not on file Legal 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 Gender Identity Not on file Sexual Orientation Not on file Last Filed Vital Signs Vital Sign Reading Time Taken Comments Blood Pressure 136/55 06/16/2017 12:08 PM CDT Pulse 85 03/16/2016 8:18 PM PAPER MILL MANAGER Temperature 36.7 C (98 F) 06/16/2017 12:08 PM CDT Respiratory Rate 20 06/16/2017 12:08 PM CDT Oxygen Saturation 98% 06/16/2017 12:08 PM CDT Inhaled Oxygen Concentration - - Weight 77.1 kg (170 lb) 06/16/2017 12:07 PM CDT Height 157.5 cm (5' 2) 06/16/2017 12:07 PM CDT Body Mass Index 31.09 06/16/2017 12:07 PM CDT Plan of Treatment Not on file Insurance MEDICARE Advance Directives For more information, please contact: [phone] * Full Code (Latest Code Status on File) Date Activated Date Inactivated Comments 06/29/2014 3:33 PM 06/30/2014 12:26 PM * Full Code Date Activated Date Inactivated Comments 10/17/2013 3:44 PM 06/29/2014 3:33 PM * Full Code Date Activated Date Inactivated Comments 10/16/2013 2:27 PM 10/17/2013 3:44 PM Care Teams Shoder Filler Relationship Specialty Start Date End Date No Ref-Primary, Physician PCP - General 06/16/17
--- OUTSIDE RECORDS SUMMARY | 2024-06-25 10:00 | XMS_ITS | Encounter Summary ---
Author Organization [facility] Address [address] [place] [address] Care Team Providers Care Liquor Department Manager Name Role Phone Gaby Fleming MD Primary Care Provider [phone] Encounter Details Date Type Department Care Team (Late st Contact Info) Description 09/18/2016 Correspondence [facility] [address] [facility] [place], [place] [id number] Jason Barrett MD [address] [place], [place] [phone] [facility] Social History Tobacco Use Types Packs/Day Years [...] on filedocumented in this encounter Care Teams Liquor Department Manager Relationship Specialty Start Date End Date Gaby Fleming MD [address] [place] [address] PCP - General 01/29/06 documented as of this encounter
--- OUTSIDE RECORDS SUMMARY | 2024-06-25 10:00 | XMS_ITS | Encounter Summary ---
Author Organization [facility] Address [address] [place] [address] Care Team Providers Care Manufacturing Management Associate Name Role Phone Gaby Fleming MD Primary Care Provider [phone] Encounter Details Date Type Department Care Team (Late st Contact Info) Description 07/29/2014 Correspondence None No Primary/Referring, Phy EQUIPMENT ETHANOL MAINTENANCE MECHANIC TICKET Social History Tobacco Use Types Packs/Day [...] on filedocumented in this encounter Care Teams Manufacturing Management Associate Relationship Specialty Start Date End Date Gaby Fleming MD [address] [place] [address] PCP - General 01/29/06 documented as of this encounter
--- OUTSIDE RECORDS SUMMARY | 2024-06-25 10:00 | XMS_ITS | Encounter Summary ---
Author Organization [facility] Address [address] [place] [address] Care Team Providers Care Scientific Specialist Name Role Phone Gaby Fleming MD Primary Care Provider [phone] Encounter Details Date Type Department Care Team (Late st Contact Info) Description 07/01/2014 Correspondence None Inactive, Provider PAP EQUIPMENT PICK-UP [...] on filedocumented in this encounter Care Teams Scientific Specialist Relationship Specialty Start Date End Date Gaby Fleming MD [address] [place] [address] PCP - General 01/29/06 documented as of this encounter
--- OUTSIDE RECORDS SUMMARY | 2024-06-25 10:00 | XMS_ITS | Encounter Summary ---
Author Organization [facility] Address [address] [place] [address] Care Team Providers Care Hand Former Helper Name Role Phone Gaby Fleming MD Primary Care Provider [phone] Encounter Details Date Type Department Care Team (Late st Contact Info) Description 06/24/2014 Correspondence None Inactive, Provider DME INSTRUCTION DELIVERY PAP THERAPY AND SUPPLIES Social History Tobacco Use Types Packs/Day Years [...] on filedocumented in this encounter Care Teams Hand Former Helper Relationship Specialty Start Date End Date Gaby Fleming MD [address] [place] [address] PCP - General 01/29/06 documented as of this encounter
--- OUTSIDE RECORDS SUMMARY | 2024-06-25 10:00 | XMS_ITS | Encounter Summary ---
Author Organization [facility] Address [address] [place] [address] Care Team Providers Care Benefits Consultant Name Role Phone Gaby Fleming MD Primary Care Provider [phone] Encounter Details Date Type Department Care Team (Late st Contact Info) Description 07/19/2014 Consent for Procedure/Treatme nt [facility] INFORMED CONSENT Social History Tobacco Use Types Packs/Day Years [...] on filedocumented in this encounter Care Teams Benefits Consultant Relationship Specialty Start Date End Date Gaby Fleming MD [address] [place] [address] PCP - General 01/29/06 documented as of this encounter
--- OUTSIDE RECORDS SUMMARY | 2024-06-25 10:00 | XMS_ITS | Encounter Summary ---
Author Organization [facility] Address [address] [place] [address] Care Team Providers Care Felting Machine Operator Helper Name Role Phone Gaby Fleming MD Primary Care Provider [phone] Encounter Details Date Type Department Care Team (Late st Contact Info) Description 03/27/2015 Correspondence None No Primary/Referring, Phy E EQUIPMENT RAILROAD TRACK INSPECTOR TICKET Social History Tobacco Use Types Packs/Day [...] on filedocumented in this encounter Care Teams Felting Machine Operator Helper Relationship Specialty Start Date End Date Gaby Fleming MD [address] [place] [address] PCP - General 01/29/06 documented as of this encounter
--- OUTSIDE RECORDS SUMMARY | 2024-06-25 10:00 | XMS_ITS | Encounter Summary ---
Author Organization [facility] Address [address] [place] [address] Care Team Providers Care Airways Operations Specialist Name Role Phone Gaby Fleming MD Primary Care Provider [phone] Encounter Details Date Type Department Care Team (Late st Contact Info) Description 06/24/2014 Correspondence None Inactive, Provider INSTRUCTION CHECKLIST Social History Tobacco Use Types Packs/Day Years [...] on filedocumented in this encounter Care Teams Airways Operations Specialist Relationship Specialty Start Date End Date Gaby Fleming MD [address] [place] [address] PCP - General 01/29/06 documented as of this encounter
--- OUTSIDE RECORDS SUMMARY | 2024-06-25 10:00 | XMS_ITS | Encounter Summary ---
Author Organization [facility] Address [address] [place] [address] Care Team Providers Care Maintenance And Operations Supervisor Name Role Phone Gaby Fleming MD Primary Care Provider [phone] Encounter Details Date Type Department Care Team (Late st Contact Info) Description 02/11/2013 Correspondence None No Primary/Referring, [facility] HEALTH PROVIDER SCREENING FORM Social History Tobacco Use Types Packs/Day Years [...] as of this encounter Progress Notes * No Primary/Referring, [facility] - 02/11/2013 12:00 AM CST HETIC FILAMENT EXTRUDER documented in this encounter Plan of Treatment Not on file documented as of this encounter Visit Diagnoses Not on filedocumented in this encounter Care Teams Maintenance And Operations Supervisor Relationship Specialty Start Date End Date Gaby Fleming MD [address] [place] [address] PCP - General 01/29/06 documented as of this encounter
--- OUTSIDE RECORDS SUMMARY | 2024-06-25 10:00 | XMS_ITS | Encounter Summary ---
Author Organization [facility] Address [address] [place] [address] Care Team Providers Care Dental Equipment Repairer Name Role Phone Gaby Fleming MD Primary Care Provider [phone] Encounter Details Date Type Department Care Team (Late st Contact Info) Description 10/06/2014 Correspondence [facility] Radiology [address] [place] [phone] Radiology, Provider MRI SAFETY SHEET AND COMPATIBILITY FORM Social History Tobacco Use Types Packs/Day [...] on filedocumented in this encounter Care Teams Dental Equipment Repairer Relationship Specialty Start Date End Date Gaby Fleming MD [address] [place] [address] PCP - General 01/29/06 documented as of this encounter
--- OUTSIDE RECORDS SUMMARY | 2024-06-25 10:00 | XMS_ITS | Encounter Summary ---
Author Organization [facility] Address [address] [address] Care Team Providers Care Tooth Grinder Name Role Phone Gaby Fleming MD Primary Care Provider [phone] Encounter Details Date Type Department Care Team (Late st Contact Info) Description 02/21/2015 Consent for Procedure/Treatme nt [facility] Department INFORMED CONSENT RECORD Social History Tobacco [...] on filedocumented in this encounter Care Teams Tooth Grinder Relationship Specialty Start Date End Date Gaby Fleming MD [address] [place] [address] PCP - General 01/29/06 documented as of this encounter
--- OUTSIDE RECORDS SUMMARY | 2024-06-25 10:00 | XMS_ITS | Encounter Summary ---
Author Organization [facility] Address [address] [place] [address] Care Team Providers Care Residence Hall Director Name Role Phone Gaby Fleming MD Primary Care Provider [phone] Encounter Details Date Type Department Care Team (Late st Contact Info) Description 07/12/2014 Correspondence [facility]ty [facility] [address] [place] [address]. [place], [place] [phone] Carlos Barrow MD [address] [place], [place] [phone] UROGYNECOLOGY QUESTIONNAIRE Social History Tobacco Use Types Packs/Day Years [...] on filedocumented in this encounter Care Teams Residence Hall Director Relationship Specialty Start Date End Date Gaby Fleming MD [address] [place] [address] PCP - General 01/29/06 documented as of this encounter
--- OUTSIDE RECORDS SUMMARY | 2024-06-25 10:00 | XMS_ITS | Encounter Summary ---
Author Organization [facility] Address [address] [place] [address] Care Team Providers Care Drupal Developer Name Role Phone Gaby Fleming MD Primary Care Provider [phone] Encounter Details Date Type Department Care Team (Late st Contact Info) Description 06/30/2014 Outside Hospital External to [facility] Provider DISCHARGE SUMMARY Social History Tobacco Use Types Packs/Day Years [...] on filedocumented in this encounter Care Teams Drupal Developer Relationship Specialty Start Date End Date Gaby Fleming MD [address] [place] [address] PCP - General 01/29/06 documented as of this encounter
--- OUTSIDE RECORDS SUMMARY | 2024-06-25 10:00 | XMS_ITS | Encounter Summary ---
Author Organization [facility] Address [address] [place] [address] Care Team Providers Care Customer Support Consultant Name Role Phone Gaby Fleming MD Primary Care Provider [phone] Encounter Details Date Type Department Care Team (Latest Contact Info) Description 07/14/2014 Consent for Procedure/Treatme nt [facility] [address] [facility] [address] [place] [address] INFORMED CONSENT URODYNAMIC TESTING Social History Tobacco Use Types Packs/Day Years [...] on filedocumented in this encounter Care Teams Customer Support Consultant Relationship Specialty Start Date End Date Gaby Fleming MD [address] [place] [address] PCP - General 01/29/06 documented as of this encounter
--- OUTSIDE RECORDS SUMMARY | 2024-06-25 10:00 | XMS_ITS | Encounter Summary ---
Author Organization [facility] Address [address] [place] [address] Care Team Providers Care Recruiting Associate Name Role Phone Gaby Fleming MD Primary Care Provider [phone] Encounter Details Date Type Department Care Team (Late st Contact Info) Description 09/27/2016 Correspondence Specialty [facility] [address] [facility] [place], [place] [phone] Jason Barrett MD [address] [place], [place] [phone] [facility] Social History Tobacco [...] on filedocumented in this encounter Care Teams Recruiting Associate Relationship Specialty Start Date End Date Gaby Fleming MD [address] [place] [address] PCP - General 01/29/06 documented as of this encounter
--- OUTSIDE RECORDS SUMMARY | 2024-06-25 10:00 | XMS_ITS | Clinical Summary ---
Author Organization [facility] access hospital Address [address] [place] [address] Care Team Providers Care Metrology Engineer Name Role Phone Kat Fleming MD Primary Care Provider Source Comments You are receiving this document as you are listed as the primary care provider,follow-up provider, or the patient has been referred to you for consultation.This is in compliance with the Medicare and[facility] EHR Incentive Program,which states Providers who transition their patient to another setting of careor provider of care or refers their patient to another provider of care shouldprovide summary care record for each transition of care or referral. Complete Solar Allergies Active Allergy Reactions Criticality Noted Date Comments Iodinated Contrast Media Anaphylaxis High 05/26/2014 Pt given Epi Pen and sent to ER post injection CT Contrast with pre medication given to patient prior to Contrast injection. Nitrofurantoin Other Anaphylaxis High 06/29/2014 Hand water quality technician used by someone else in her group therapy. Patient taken by ambulance to ED Sulfa Antibiotics Medications * This document contains information received from the source organization and may not represent a complete record from that organization. NEEDLE, DISP, 18 G (BD DISP NEEDLES) 18G X 1-1/2 Inhale 1 Units by mouth once as needed for up to 1 dose. For patient to draw off lidocaine to use for nebulizer 50 Each 1 03/01/20 15 Active lidocaine PF (AKA XYLOCAINE) 2 % 5ML NEBULIZED ONCE DAILY FOR SEVERE VOCAL CORD SPASM NEEDED. 60 mL 0 03/27/20 15 Active Additional Information Patient not taking.Reported on 05/29/2016 ALPRAZolam (NIRAVAM) 1 MG dissolvable tabletIndication s:Generalized anxiety disorder (HRC),Panic disorder without agoraphobia (HRC) Take 1-2 Tabs by mouth daily as needed (Vocal Cord Dysfunction Attack). Dissolve tablet on tongue. 20 Tab 3 03/30/20 15 Active Additional Information Patient not taking.Reported on 05/29/2016 venlafaxine (EFFEXOR XR) 150 MG 24 hour release capsuleIndicatio ns:Panic disorder without agoraphobia (HRC),Depression , involutional Take 2 Caps by mouth every morning. 180 Cap 3 03/30/20 15 Active benzonatate (AKA TESSALON) 100 MG capsule Take 2 Caps by mouth three times a day as needed for Cough. 90 Cap 3 10/13/19 16 Active Additional Information Patient not taking.Reported on 05/29/2016 zolpidem (AKA AMBIEN) 5 MG tabletIndication s:Generalized anxiety disorder (HRC),Panic disorder without agoraphobia (HRC),Depression , involutional Take 1 Tab by mouth at bedtime as needed for Sleep. 30 Tab 5 10/13/19 16 Active ranitidine (AKA ZANTAC) 300 MG tablet TAKE 1 TABLET BY MOUTH DAILY AT BEDTIME. 90 Tab 3 10/27/19 16 Active EPINEPHrine (EPIPEN,AUVI-Q) 0.3 MG/0.3ML injection Inject 0.3 mL intramuscularly once as needed for up to 1 dose. into thigh as directed for and/or potential for an allergic reaction 2 Each 1 12/06/19 16 Active Additional Information Patient not taking.Reported on 05/29/2016 ALBUterol 2.5 mg/3 mL, 0.083%, nebulizer solutionIndicati ons:Dyspnea, unspecified type,Acute bronchitis, unspecified organism Inhale 3 mL every 6 hours as needed for Wheezing. 90 mL 4 03/05/20 16 Active SUMAtriptan (IMITREX) 100 MG tablet Take 1 Tab by mouth as needed for Migraine. May repeat one tablet after 2 hours if needed. Maximum 2 tabs/24 hours and 9 days/month 9 Tab 5 03/19/20 16 Active Additional Information Patient not taking.Reported on 05/29/2016 pantoprazole (PROTONIX) 40 MG tablet Take 1 Tab by mouth daily. 90 Tab 3 06/13/19 17 Active Additional Information Patient not taking.Reported on 07/24/2016 ALBUterol sulfate HFA (VENTOLIN HFA) 108 (90 BASE) MCG/ACT inhalerIndicatio ns:Moderate persistent asthma with acute exacerbation (HRC) Inhale 2 Puffs every 4 hours as needed for Wheezing. cough, and prior to exercise. 18 g 4 07/25/19 17 Active mometasone-formo terol (DULERA) 200-5 mcg/actuation inhalerIndicatio ns:Moderate persistent asthma with acute exacerbation (HRC) Inhale 2 Puffs two times a day. Rinse mouth/gargle after use. 13 g 6 07/25/19 17 Active fluticasone-salm eterol (ADVAIR) 500-50 MCG/DOSE diskus inhalerIndicatio ns:Mild persistent asthma without complication (HRC) Inhale 1 Puff two times a day. 60 Each 11 08/03/19 17 Active montelukast (SINGULAIR) 10 MG tablet TAKE 1 TABLET BY MOUTH EVERY DAY 90 Tab 2 11/26/19 17 Active naproxen (NAPROSYN) 500 MG tablet Take 1 Tab by mouth two times a day with meals. PRN pain 100 Tab 01/03/20 17 Active gabapentin (NEURONTIN) 300 MG capsule TAKE ONE CAPSULE BY MOUTH 3 TIMES A DAY 270 Cap 3 03/17/20 17 Active naproxen (NAPROSYN) 500 MG tablet TAKE 1 TAB BY MOUTH TWO TIMES A DAY WITH MEALS. NEEDED PAIN 100 Tab 03/17/20 17 Active Active Problems Patient Care Coordination No te Formatting of this note migh t be different from the original. 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 Overview (11/20/2016): Depression, involutional (HRC), in remission Screening for malignant neoplasm of cervix 09/12 Overview (12/31/2014): 2010 NILM 2014 nilm, hpv negative PLAN: Cotest 08/2019 ICD 10 Physical deconditioning 07/26/2014 Vocal cord dysfunction 07/25/2014 CAREPLAN: [facility] CASE MANAGEMENT 2014 Overview (08/14/2016): Background: 11/04/14 Continue case open to Behavioral Health Case Manuel/Kim Spain @ [phone] Engaged in Complex Case Management: Santa Garcia RN [phone] Goals/Recommendations: CM will encourage patient to f/t on behavioral health appointments, practice good self care and take medications as ordered over next 3M AEB pt self report. Generalized anxiety disorder 05/12/2014 Overview (11/20/2016): Generalized anxiety disorder (HRC) in remission Obesity 02/08/2012 Overview (11/20/2016): overweight Esophageal reflux 10/02/2005 Asthma 03/12/2005 Resolved Problems Problem Noted Date Diagnosed Date Resolved Date CAREPLAN: TERMINATION 09/08/20152015 Overview (09/08/2015): Psychiatry See my note dated 09/08/2015. Also terminated by Deborah Campos [facility] (psychotherapy). Jaycob Ayala MD 09/08/2015, 3:15 PM Adjustment disorder with mix ed anxiety and depressed mood 08/04/2015 12/06/2015 Sensory integration disorder 07/26/2015 12/06/2015 Impaired mobility and ADLs 07/26/2015 0 12/06/2015 Severe episode of recurrent major depressive disorder, without psychotic features 06/09/201509/2015 Panic disorder without agoraphobia 04/20/2015 12/06/2015 [facility] Case Management 10/07/19 15 01/11/2016 Overview (10/06/2014): Background: Diagnosis: Major Depressive Disorder, Generalized Anxiety Disorder, PTSD, Panic Disorder and Dissociative Identity Disorder. Current situation: The member was recently hospitalized on a psych unit at [facility] from 10/02/14-10/06/14. She was discharged with psychotherapy and psychiatry appointments. Providers outside of [facility]: The member sees two therapists at [facility]. Filipe Mcwilliams and Faith Vazquez. They can be reached at [phone]. Goals/Recommendations: Outpatient Behavioral Health Flight ParamedicPersonnel Training Officer Information: Kim Sosa MA, [facility] [phone] Action Plan: The member was provided with educational materials, community resources, crisis planning information, and wellness programs offered by her 's employer. She had set up a daily plan that sets aside time for herself to relax and complete stress reduction techniques. She will also be followed by her Health Advocate regarding coordination of her medical conditions. Balance problem 07/26/2014 02/03/2015 Dysthymic disorder 05/12/2014 5 Overview (11/20/2016): Persistent Depressive Disorder Panic disorder without agoraphobia 12/30/2013 02/03/2015 [facility] Case Management 12/24/19 14 02/21/2014 Overview (12/23/2013): Background: Enrolled in [facility] [place] [employer] Coordinator Program - coaching for Anxiety & Depression. Diagnosis: Dysthymia; Panic Disorder Current situation: Reports experiencing symptoms of depression and anxiety due to family stressors and significant challenges with maintaining a work/family balance. Patient has been participating in intensive mental health treatment since the middle of October. Patient s all 5 children live at home with her along with her elderly [id number]. Patient reports that she has experienced symptoms of depression for many years however, the anxiety is new for her and that she has challenges with her overall self-care. Providers outside of [facility]: Currently attending IOP at [facility] Goals/Recommendations: Outpatient Depression/Anxiety Valet Parking Attendant Contact Information: Garry Roman MS, [facility] [phone] Action Plan: To continue to work on improving overall self-care by developing a sleep schedule, engaging in physical activity, eating a balance diet, relaxation and participating in enjoyable activities. Valet Parking Attendant to provide health education information on overall self-care, stress relief, relaxation, anxiety, healthy eating as well as community support for anxiety/panic. Diverticulitis 10/16/2013 12/06/2015 Head revolving around 10/16/20132014 Nontoxic uninodular goiter 03/27/2004 1 04/05/2014 Immunizations Immunization Administration Dates Next Due DTaP 09/28/2014 Flu Vac (3+ yrs) 01/10/2012, 1,12/29/2008,2006,01/15/2006,01/11/2005,03/01/2004,1 04/04/2002,02/04/2002,02/04/2001, 000,01/18/1999 HepA-HepB ([place], 18+ yrs) 01/17/2016,06/02/19 03,12/25/2001 Influenza IIV4 (Quadrivalent ) 0.5mL (72316) 12/06/2015,12/22/2014,12/07/2013,2012 Influenza Vaccine (3+years) ([facility]) 01/09/2010,01/12/2008 Influenza, Unspecified Formulation 01/10/1998, PPSV23 (Pneumovax) 02/07/2012 TB Skin Test (PPD) 10/02/2001 Td 09/30/2001,03/30/1990 Tdap 05/15/2010 Varicella 05/25/1999(Deferred: Immune by Judit puckett) Family History Medical History Relation Name Comments Hypertension Father Alcohol/Drug Abuse Mother Dementia Mother and father Liver Disease Mother EtOH cirrhosis Cancer, Other Brother lung, in early 20s, was smoker (but minimal hx due to age), alive and well Kidney Disorder Maternal Grandfather Cancer, Other Maternal Grandmother brain Cerebrovascular Disease Maternal Grandmother Cancer, Other Paternal Grandfather unknow n type Asthma Son two sons Depression Son two sons, also her sister Diabetes, Type II Negative Family History Relation Name Status Comments Father Mother Brother Maternal Grandfather Maternal Grandmother Paternal Grandfather Son Social History Tobacco Use Types Packs/Day Years [...] Sign Reading Time Taken Comments Blood Pressure 125/79 07/24/2016 1:11 PM CDT Pulse 87 07/24/2016 1:11 PM CDT Temperature 37.2 C (99 F) 07/24/2016 1:07 PM CDT Respiratory Rate 16 01/17/2016 1:23 PM CDT Oxygen Saturation 96% 07/24/2016 1:07 PM CDT Inhaled Oxygen Concentration - - Weight 78.8 kg (173 lb 12.8 oz) 07/24/2016 1:07 PM CDT Height 157.5 cm (5' 2) 01/17/2016 1:23 PM CDT Body Mass Index 31.79 01/17/2016 1:23 PM CDT Plan of Treatment Health Maintenance Due Date Last Done Comments Medicare Annual Wellness Visit 1955 Zoster/Shingles (1 of 2) 06/20/2007 Pneumococcal 50+ Yrs (2 of 2 - PCV) 02/06/2013 02/07/2012 Mammogram 04/11/2016 04/11/2014, 05/2012, 07/31/2012, Additional history exists Cholesterol 03/19/2021 03/19/2016, 09/2015, 02/03/2015, Additional history exists Colonoscopy 08/08/2021 08/09/2011, 08/09/2011 COVID-19 Vaccine (2023- season) 2023 Influenza (#1) 2023 12/06/2015, 11/30, 12/07/2013, Additional history exists DTaP/Tdap/Td (4 - Tdap) 10/26/2024 10/27/19 15, 09/28/2014, 05/15/2010, Additional history exists RSV (1 - 1-dose 75+ series) 2032 Cervical Cancer Screening Discontinued 2014, 02/11/2011, 02/11/2011, Additional history exists Hep C Screening (Preventive Services) Completed 12/06/2015, 02/07/2012 HepA Aged Out 01/17/2016, 0306/2002, 12/25/2001 No longer eligible based on patient's age to complete this topic Hib Aged Out No longer eligi ble based on patient's age to complete this topic IPV (Polio) Aged Out No longer eligi ble based on patient's age to complete this topic MCV4 Aged Out No longer eligi ble based on patient's age to complete this topic Meningococcal B Aged Out No longer el igible based on patient's age to complete this topic Medical Devices Implanted Type Area Technical Expert Device Identifier Shelf Expiration Date Model / Serial / Lot Sling Advantage Mid-Urethral - [id number] Implanted:Qty: 1 on 02/21/2015 by Carlos Barrow MD at [facility] DEVICE N/A: VAGINA [place] Scien knitter hand 10/26/2017 [id number] / / [id number] Procedures Procedure Name Priority Date/Time Associated Diagnosis Comments LIPID PANEL & DIRECT LDL (IF NEEDED) Routine 03/19/2016 11:16 AM BPM ARCHITECT Pre-diabetes HEPATITIS C ANTIBODY, WITH REFLEX Routine 12/06/2015 9:36 AM CDT Preventative health care PAP TEST, ROUTINE Routine 09/06/2014 8:2 8 AM CDT Screening for cervical cancer MM MAMMOGRAM SCREENING BILAT W CAD Routine 04/11/2014 2:06 PM BPM ARCHITECT COLONOSCOPY Routine 08/09/2011 8:56 AM CDT Abn findings-GI tract from Last 3 Months or Most Recently Relevant to Health Maintenance Results * (ABNORMAL) Lipid Panel and Direct LDL(If Needed) (03/19/2016 11:16 AM BPM ARCHITECT) Hours Fasting 2 hours [facility] Cholesterol 179 0 - 199 mg/dl [facility] Triglyceride 161(H) 0 - 149 mg/dl [facility] HDL 40(L) >40 mg/dl [facility] LDL, Calc. 107 0 - 129 mg/dl [facility] Non HDL Chol, Calc 139 mg/dl [facility] 03/19/2016 11:1 6 AM BPM ARCHITECT 03/19/2016 11:17 AM BPM ARCHITECT Narrative [facility] - 03/19/2016 6:49 PM BPM ARCHITECT Performed at [facility], [address] [place], [place] [id number] us Kat Fleming MD LAB_1 Final Resul t Performing Organization Address City/[facility] Co de Phone Number [facility] [phone] * Hepatitis C Antibody, with Reflex (12/06/2015 9:36 AM CDT) Anti-HCV Negative (Non Reactive) NEGNR [facility] Comment: Antibodies to HCV not detected. Does not exclude the possibility of exposure to HCV. 12/06/2015 9:36 AM CDT 12/06/2015 9:37 AM CDT Narrative [facility] - 12/06/2015 8:01 PM CDT Performed at [facility], [address] [place] [id number] us Kat Fleming MD LAB_1 Final Resul t Performing Organization Address City/[facility] Co de Phone Number [facility] [phone] * PAP TEST, ROUTINE (09/06/2014 8:28 AM CDT) Cytology, Pap (NOTE) Shipping Room Supervisor Cytology Report Patient Name: SOPHIE CASTRO Taken: 09/06/2014 Received: 09/06/2014 Reported: 09/12/2014 Physician(s): KAT FLEMING ([id number]) Source of Specimen Pap Test, Routine Cervical/Endocervi zane: Specimen Adequacy Satisfactory for evaluation. Endocervical component present. Final Cytologic Interpretation/Res ult NEGATIVE FOR INTRAEPITHELIAL LESION OR MALIGNANCY (NILM) Other Cytologic Findings Atrophy Electronically Signed Out By ABDELRAHMAN Andrew (ASCP) ABDELRAHMAN Andrew (ASCP) Pap Smear History Date of Last Menstrual Period: Menopausal Microscopic Description Microscopic examination is performed. [facility] Department of Pathology [address] [place] [id number] [facility] 09/06/2014 8:28 AM CDT 09/06/2014 5:[address] [facility] Kat Fleming MD LAB_1 Final Resul t [facility] [phone] * MAMMOGRAM SCREENING BILATERAL (04/11/2014 2:06 PM BPM ARCHITECT) Anatomical Region Laterality Modality Breast Bilateral Mammography Narrative 04/12/2014 2:34 PM BPM ARCHITECT BILATERAL FULL FIELD DIGITAL SCREENING MAMMOGRAM Performed on 04/11/2014 Comparison: MAMMOGRAM SCREENING W/CAD BILAT 07/31/12 and MAMMOGRAM SCREENING W/CAD BILAT 02/08/11. Findings: The breasts have scattered fibroglandular densities. There is no radiographic evidence of malignancy.This study was evaluated with the assistance of Computer-Aided Detection. Repeat routine screening mammogram in one year is recommended. ACR BI-RADS Category 1: Negative Kat Fleming MD RAD ZENA Final Resul t * COLONOSCOPY [[id number]] (08/09/2011 8:56 AM CDT) 08/09/2011 8:56 AM CDT Narrative GI ([facility]) - 08/09/2011 9:21 AM CDT Indications: Abnormal CT of the GI tract, recurrent diverticulitis on CT Providers: Ari Amanda MD, Ginny Morales RN Referring MD: Kat Fleming MD Medicines: Fentanyl IV 100 mcgs, Versed/Midazolam IV 4 mgs Complications: No immediate complications. Procedure: Pre-Anesthesia Assessment: - Prior to the procedure, a History and Physical was performed, and patient medications and allergies were reviewed. The patient is competent. The risks and benefits of the procedure and the sedation options and risks were discussed with the patient. All questions were answered and informed consent was obtained. Patient identification and proposed procedure were verified by the physician and the nurse in the procedure room. Mental Status Examination: alert and oriented. Airway Examination: normal oropharyngeal airway and neck mobility. Respiratory Examination: clear to auscultation. CV Examination: normal. Prophylactic Antibiotics: The patient does not require prophylactic antibiotics. Prior Anticoagulants: The patient has taken no previous anticoagulant or antiplatelet agents. ASA Grade Assessment: II - A patient with mild systemic disease. After reviewing the risks and benefits, the patient was deemed in satisfactory condition to undergo the procedure. The anesthesia plan was to use moderate sedation / analgesia (conscious sedation). Immediately prior to administration of medications, the patient was re-assessed for adequacy to receive sedatives. The heart rate, respiratory rate, oxygen saturations, blood pressure, adequacy of pulmonary ventilation, and response to care were monitored throughout the procedure. The physical status of the patient was re-assessed after the procedure. After I obtained informed consent, the scope was passed under direct vision. Prior to sedation, patient identity and procedure was reverified. Throughout the procedure, the patient's blood pressure, pulse, and oxygen saturations were monitored continuously. The Colonoscope was introduced through the anus and advanced to the cecum, identified by appendiceal orifice & ileocecal valve. The colonoscopy was performed without difficulty. The patient tolerated the procedure well. The quality of the bowel preparation was good. Findings: Multiple medium-mouthed diverticula were found in the sigmoid colon and in the descending colon. The retroflexed view of the distal rectum and anal verge was normal and showed no anal or rectal abnormalities. Impression: - Moderate diverticulosis in the sigmoid colon and in the descending colon. - The distal rectum and anal verge are normal on retroflexion view. Recommendation: - High fiber diet. - Use fiber, for example Citrucel, Fibercon, Konsyl or Metamucil. - Repeat colonoscopy in 10 years for screening purposes. - Return to primary care physician as previously scheduled. CPT(R) Code(s): --- Professional --- 07586, Colonoscopy, flexible, proximal to splenic flexure; diagnostic, with or without collection of specimen(s) by brushing or washing, with or without colon decompression (separate procedure) ICD9 Code(s): --- Professional --- 793.4, Nonspecific (abnormal) findings on radiological and other examination of gastrointestinal tract 562.10, Diverticulosis of colon (without mention of hemorrhage) CPT (R) 2011 [employer]. All Rights Reserved. The codes documented in this report are preliminary and upon police superintendent review may be revised to meet current compliance requirements. Attending Participation: Ari Amanda MD 08/09/2011 9:21 AM Number of Addenda: 0 Note Initiated On: 08/09/2011 8:56 AM Procedure Note Ari Amanda MD - 08/09/2011 Indications: Abnormal CT of the GI tract, recurrent diverticulitis on CT Providers: Ari Amanda MD, Ginny Morales RN Referring MD: Kat Fleming MD Medicines: Fentanyl IV 100 mcgs, Versed/Midazolam IV 4 mgs Complications: No immediate complications. Procedure: Pre-Anesthesia Assessment: - Prior to the procedure, a History and Physical was performed, and patient medications and allergies were reviewed. The patient is competent. The risks and benefits of the procedure and the sedation options and risks were discussed with the patient. All questions were answered and informed consent was obtained. Patient identification and proposed procedure were verified by the physician and the nurse in the procedure room. Mental Status Examination: alert and oriented. Airway Examination: normal oropharyngeal airway and neck mobility. Respiratory Examination: clear to auscultation. CV Examination: normal. Prophylactic Antibiotics: The patient does not require prophylactic antibiotics. Prior Anticoagulants: The patient has taken no previous anticoagulant or antiplatelet agents. ASA Grade Assessment: II - A patient with mild systemic disease. After reviewing the risks and benefits, the patient was deemed in satisfactory condition to undergo the procedure. The anesthesia plan was to use moderate sedation / analgesia (conscious sedation). Immediately prior to administration of medications, the patient was re-assessed for adequacy to receive sedatives. The heart rate, respiratory rate, oxygen saturations, blood pressure, adequacy of pulmonary ventilation, and response to care were monitored throughout the procedure. The physical status of the patient was re-assessed after the procedure. After I obtained informed consent, the scope was passed under direct vision. Prior to sedation, patient identity and procedure was reverified. Throughout the procedure, the patient's blood pressure, pulse, and oxygen saturations were monitored continuously. The Colonoscope was introduced through the anus and advanced to the cecum, identified by appendiceal orifice & ileocecal valve. The colonoscopy was performed without difficulty. The patient tolerated the procedure well. The quality of the bowel preparation was good. Findings: Multiple medium-mouthed diverticula were found in the sigmoid colon and in the descending colon. The retroflexed view of the distal rectum and anal verge was normal and showed no anal or rectal abnormalities. Impression: - Moderate diverticulosis in the sigmoid colon and in the descending colon. - The distal rectum and anal verge are normal on retroflexion view. Recommendation: - High fiber diet. - Use fiber, for example Citrucel, Fibercon, Konsyl or Metamucil. - Repeat colonoscopy in 10 years for screening purposes. - Return to primary care physician as previously scheduled. CPT(R) Code(s): --- Professional --- 22568, Colonoscopy, flexible, proximal to splenic flexure; diagnostic, with or without collection of specimen(s) by brushing or washing, with or without colon decompression (separate procedure) ICD9 Code(s): --- Professional --- 793.4, Nonspecific (abnormal) findings on radiological and other examination of gastrointestinal tract 562.10, Diverticulosis of colon (without mention of hemorrhage) CPT (R) 2011 [employer]. All Rights Reserved. The codes documented in this report are preliminary and upon police superintendent review may be revised to meet current compliance requirements. Attending Participation: Ari Amanda MD 08/09/2011 9:21 AM Number of Addenda: 0 Note Initiated On: 08/09/2011 8:56 AM Ari Amanda MD DIGESTIVE CARE Final Result [facility] ([facility]OV[facility]) [place], [place] from Last 3 Months or Most Recently Relevant to Health Maintenance Insurance [facility] MEDICARE Advance Directives * Full Code (Latest Code Status on File) Date Activated Date Inactivated Comments 10/24/2014 4:56 AM 10/26/2014 2:53 PM * Full Code Date Activated Date Inactivated Comments 10/03/2014 12:15 PM 10/06/2014 1:15 PM * Full Code Date Activated Date Inactivated Comments 04/22/2014 8:28 PM 04/28/2014 4:20 PM Care Teams Metrology Engineer Relationship Specialty Start Date End Date Kat Fleming MD [address] [place] [address] PCP - General 01/29/06
--- OUTSIDE RECORDS SUMMARY | 2024-06-25 10:00 | XMS_ITS | Encounter Summary ---
Author Organization [facility] Address [address] [place] [address] Care Team Providers Care Collective Bargaining Specialist Name Role Phone Gaby Fleming MD Primary Care Provider [phone] Encounter Details Date Type Department Care Team (Late st Contact Info) Description 12/14/2015 Correspondence External to External, [place] [address] 2015 HEALTH PROVIDER SCREENING FORM Social History Tobacco [...] on filedocumented in this encounter Care Teams Collective Bargaining Specialist Relationship Specialty Start Date End Date Gaby Fleming MD [address] [place] [address] PCP - General 01/29/06 documented as of this encounter
--- OUTSIDE RECORDS SUMMARY | 2024-06-25 10:00 | XMS_ITS | Encounter Summary ---
Author Organization [facility] Address [address] [place] [address] Care Team Providers Care Estimator Printing Name Role Phone Gaby Fleming MD Primary Care Provider [phone] Encounter Details Date Type Department Care Team (Late st Contact Info) Description 06/24/2014 Correspondence None Inactive, Provider PAP EQUIPMENT PICK-UP [...] on filedocumented in this encounter Care Teams Estimator Printing Relationship Specialty Start Date End Date Gaby Fleming MD [address] [place] [address] PCP - General 01/29/06 documented as of this encounter
--- OUTSIDE RECORDS SUMMARY | 2024-06-25 10:00 | XMS_ITS | Encounter Summary ---
Author [facility] Address [address] [place] [address] Care Team Providers Care Animal Control Supervisor Name Role Phone Gaby Fleming MD Primary Care Provider [phone] Encounter Details Date Type Department Care Team (Late st Contact Info) Description 07/05/2014 Consent for Procedure/Treatme nt [facility] INFORMED [...] on filedocumented in this encounter Care Teams Animal Control Supervisor Relationship Specialty Start Date End Date Gaby Fleming MD [address] [place] [address] PCP - General 01/29/06 documented as of this encounter
--- OUTSIDE RECORDS SUMMARY | 2024-06-25 10:00 | XMS_ITS | Encounter Summary ---
Author Organization [facility] Address [address] [place] [address] Care Team Providers Care Automatic Paint Sprayer Operator Name Role Phone Gaby Fleming MD Primary Care Provider [phone] Encounter Details Date Type Department Care Team (Late st Contact Info) Description 07/31/2015 Correspondence External to External, [place] [address] LETTER SUCCESSFULL COMPLETED DBT TREATMENT Social History Tobacco Use Types Packs/Day Years [...] on filedocumented in this encounter Care Teams Automatic Paint Sprayer Operator Relationship Specialty Start Date End Date Gaby Fleming MD [address] [place] [address] PCP - General 01/29/06 documented as of this encounter
--- OUTSIDE RECORDS SUMMARY | 2024-06-25 10:00 | XMS_ITS | Encounter Summary ---
[facility] Address [address] [place] [address] Care Team Providers Care Electronics Repair Technician Name Role Phone Gaby Fleming MD Primary Care Provider [phone] Encounter Details Date Type Department Care Team (Late st Contact Info) Description 06/15/2014 Consent for Procedure/Treatme nt [facility] INFORMED CONSENT FOR SLEEP/AUDIO/VIDEO Social History Tobacco Use Types Packs/Day Years [...] on filedocumented in this encounter Care Teams Electronics Repair Technician Relationship Specialty Start Date End Date Gaby Fleming MD [address] [place] [address] PCP - General 01/29/06 documented as of this encounter
--- OUTSIDE RECORDS SUMMARY | 2024-06-25 10:00 | XMS_ITS | Encounter Summary ---
[facility] Address [address] [place] [address] Care Team Providers Care Tank Welder Name Role Phone Gaby Fleming MD Primary Care Provider [phone] Encounter Details Date Type Department Care Team (Late st Contact Info) Description 06/28/2014 Consent for Procedure/Treatme nt [facility] Department INFORMED [...] on filedocumented in this encounter Care Teams Tank Welder Relationship Specialty Start Date End Date Gaby Fleming MD [address] [place] [address] PCP - General 01/29/06 documented as of this encounter
--- OUTSIDE RECORDS SUMMARY | 2024-06-25 10:01 | XMS_ITS | Encounter Summary ---
Author Organization [facility] Address [address] [place] [address] Care Team Providers Care Residential Real Estate Appraiser Name Role Phone Gaby Fleming MD Primary Care Provider [phone] Encounter Details Date Type Department Care Team (Late st Contact Info) Description 07/17/2015 Correspondence None No Primary/Referring, Phy HME EQUIPMENT CHIEF FISHERY DIVISION TICKET Social History Tobacco Use Types Packs/Day [...] on filedocumented in this encounter Care Teams Residential Real Estate Appraiser Relationship Specialty Start Date End Date Gaby Fleming MD [address] [place] [address] PCP - General 01/29/06 documented as of this encounter
--- OUTSIDE RECORDS SUMMARY | 2024-06-25 10:01 | XMS_ITS | Encounter Summary ---
Author Organization [facility] Address [address] [place] [address] Care Team Providers Care Health Navigator Name Role Phone Gaby Fleming MD Primary Care Provider [phone] Encounter Details Date Type Department Care Team (Late st Contact Info) Description 07/17/2015 Correspondence None No Primary/Referring, Phy HME EQUIPMENT PRESS OPERATOR INSTANT PRINT SHOP TICKET CPAP Social History Tobacco Use Types Packs/Day Years [...] on filedocumented in this encounter Care Teams Health Navigator Relationship Specialty Start Date End Date Gaby Fleming MD [address] [place] [address] PCP - General 01/29/06 documented as of this encounter
--- OUTSIDE RECORDS SUMMARY | 2024-06-25 10:01 | XMS_ITS | Encounter Summary ---
Author Organization [facility] Address [address] [place] [address] Care Team Providers Care Vocational Aide Name Role Phone Gaby Fleming MD Primary Care Provider [phone] Encounter Details Date Type Department Care Team (Late st Contact Info) Description 04/06/2015 Correspondence None No Primary/Referring, Phy HME EQUIPMENT KITCHEN CLEANER TICKET Social History Tobacco Use Types Packs/Day [...] on filedocumented in this encounter Care Teams Vocational Aide Relationship Specialty Start Date End Date Gaby Fleming MD [address] [place] [address] PCP - General 01/29/06 documented as of this encounter
--- OUTSIDE RECORDS SUMMARY | 2024-06-25 10:01 | XMS_ITS | Encounter Summary ---
Author Organization [facility] Address [address] [place] [address] Care Team Providers Care Cafeteria Counter Attendant Name Role Phone Gaby Fleming MD Primary Care Provider [phone] Encounter Details Date Type Department Care Team (Latest Contact Info) Description 11/22/2013 Correspondence [facility] Partial Hospitalization Program [address] [place] [address] [facility] SAFETY PLAN Social History Tobacco Use Types Packs/Day [...] on filedocumented in this encounter Care Teams Cafeteria Counter Attendant Relationship Specialty Start Date End Date Gaby Fleming MD [address] [place] [address] PCP - General 01/29/06 documented as of this encounter
--- OUTSIDE RECORDS SUMMARY | 2024-06-25 10:01 | XMS_ITS | Encounter Summary ---
Author Organization [facility] Address [address] [place] [address] Care Team Providers Care Dinner Cook Name Role Phone Gaby Fleming MD Primary Care Provider [phone] Encounter Details Date Type Department Care Team (Latest Contact Info) Description 08/19/1994 Orders Only Myrna Armas [address] [address] Social History Tobacco Use Types Packs/Day Years [...] on filedocumented in this encounter Care Teams Dinner Cook Relationship Specialty Start Date End Date Gaby Fleming MD [address] [place] [address] PCP - General 01/29/06 documented as of this encounter
--- OUTSIDE RECORDS SUMMARY | 2024-06-25 10:01 | XMS_ITS | Encounter Summary ---
Author Organization [facility] Address [address] [place] [address] Care Team Providers Care Power Shear Operator Name Role Phone Gaby Fleming MD Primary Care Provider +[phone] Encounter Details Date Type Department Care Team (Latest Contact Info) Description 08/15/1994 Orders Only Myrna Armas [address] [address] Social History Tobacco Use Types Packs/Day Years [...] on filedocumented in this encounter Care Teams Power Shear Operator Relationship Specialty Start Date End Date Gaby Fleming MD [address] [place] [address] PCP - General 01/29/06 documented as of this encounter
--- OUTSIDE RECORDS SUMMARY | 2024-06-25 10:01 | XMS_ITS | Encounter Summary ---
Author Organization [facility] Address [address] [place] [address] Care Team Providers Care Medical Insurance Claims Processor Name Role Phone Gaby Fleming MD Primary Care Provider [phone] Encounter Details Date Type Department Care Team (Late st Contact Info) Description 03/28/2015 Correspondence [facility] [address] [place] [address] Gaby Fleming MD [address] [facility] [address] DME EQUIPMENT PROOF OF DELIVERY Social History Tobacco Use Types Packs/Day Years [...] on filedocumented in this encounter Care Teams Medical Insurance Claims Processor Relationship Specialty Start Date End Date Gaby Fleming MD [address] [facility] [place] [address] PCP - General 01/29/06 documented as of this encounter
--- OUTSIDE RECORDS SUMMARY | 2024-06-25 10:01 | XMS_ITS | Encounter Summary ---
Author Organization [facility] Address [address] [address] Care Team Providers Care Administrative Accountant Name Role Phone Gaby Fleming MD Primary Care Provider [phone] Encounter Details Date Type Department Care Team (Late st Contact Info) Description 05/09/2015 Emergency Room External to [facility] Social History Tobacco Use Types Packs/Day Years [...] on filedocumented in this encounter Care Teams Administrative Accountant Relationship Specialty Start Date End Date Gaby Fleming MD [address] [place] [address] PCP - General 01/29/06 documented as of this encounter
--- NOTE | 2024-06-25 10:22 | CRLHL7_ITS ---
For Patients: As a result of the Cures Act, medical imaging exams and procedure reports are released immediately into your electronic medical record. You may view this report before your referring provider. If you have questions, please contact your health care provider. INDICATION: Fall. COMPARISON: None available. TECHNIQUE: Views: 3 FINDINGS: Mineralization: Normal. Alignment: Normal. Bones and Joints: No fracture is identified. Soft Tissues: Mild posterior periarticular soft tissue swelling overlying the olecranon as demonstrated on the lateral view. No joint effusion. IMPRESSION: Mild posterior periarticular soft tissue swelling overlying the olecranon as demonstrated on the lateral view. No joint effusion. No fracture is identified. Dictated by Baldemar Balbuena MD @ 06/25/2024 11:33:27 AM (Electronically Signed)
--- OUTSIDE RECORDS SUMMARY | 2024-06-25 10:36 | XMS_ITS | Encounter Summary ---
Author Organization [facility] Address [address] [place] [address] Care Team Providers Care Raw Stock Machine Feeder Name Role Phone Gaby Fleming MD Primary Care Provider [phone] Encounter Details Date Type Department Care Team (Latest Contact Info) Description 01/05/1998 Orders Only Arielle Caraballo, DO [address] [place] [address] Social History Tobacco Use Types Packs/Day Years [...] on filedocumented in this encounter Care Teams Raw Stock Machine Feeder Relationship Specialty Start Date End Date Gaby Fleming MD [address] [place] [address] PCP - General 01/29/06 documented as of this encounter
--- OUTSIDE RECORDS SUMMARY | 2024-06-25 10:36 | XMS_ITS | Encounter Summary ---
Author Organization [facility] Address [address] [address] Care Team Providers Care Stage Manager Name Role Phone Gaby Fleming MD Primary Care Provider [phone] Encounter Details Date Type Department Care Team (Late st Contact Info) Description 05/19/[address] [facility] Psychiatry [address] [place] [address] Jaycob Ayala MD [facility]-DISCHARGE PAPERWORK Social History [...] on filedocumented in this encounter Care Teams Stage Manager Relationship Specialty Start Date End Date Gaby Fleming MD [address] [place] [address] PCP - General 01/29/06 documented as of this encounter
--- OUTSIDE RECORDS SUMMARY | 2024-06-25 10:37 | XMS_ITS | Encounter Summary ---
Author Organization [facility] Address [address] [place] [address] Care Team Providers Care Corporate Attorney Name Role Phone Gaby Fleming MD Primary Care Provider [phone] Encounter Details Date Type Department Care Team (Late st Contact Info) Description 02/22/2014 Scanned History External to External, [place] [address] [facility] [place]NOTE 2] Social History Tobacco Use Types Packs/Day Years [...] on filedocumented in this encounter Care Teams Corporate Attorney Relationship Specialty Start Date End Date Gaby Fleming MD [address] [place] [address] PCP - General 01/29/06 documented as of this encounter
--- OUTSIDE RECORDS SUMMARY | 2024-06-25 10:37 | XMS_ITS | Encounter Summary ---
Author Organization [facility] Address [address] [place] [address] Care Team Providers Care Car Hiker Name Role Phone Gaby Fleming MD Primary Care Provider [phone] Encounter Details Date Type Department Care Team (Latest Contact Info) Description 06/23/1997 Orders Only Terese Panda MD [facility][note 3] [place] [address] Social History Tobacco Use Types Packs/Day Years [...] on filedocumented in this encounter Care Teams Car Hiker Relationship Specialty Start Date End Date Gaby Fleming MD [address] [place] [address] PCP - General 01/29/06 documented as of this encounter
--- OUTSIDE RECORDS SUMMARY | 2024-06-25 10:37 | XMS_ITS | Encounter Summary ---
Author Organization [facility] Address [address] [address] Care Team Providers Care Laborer Aquatic Life Name Role Phone Gaby Fleming MD Primary Care Provider [phone] Encounter Details Date Type Department Care Team (Late st Contact Info) Description 08/09/2011 Consent for Procedure/Treatme [facility] Department INFORMED CONSENT RECORD Social History Tobacco [...] as of this encounter Progress Notes * [facility], PROVIDER - 08/09/2011 12:00 AM CDT documented in this encounter Plan of Treatment Not on file documented as of this encounter Visit Diagnoses Not on filedocumented in this encounter Care Teams Laborer Aquatic Life Relationship Specialty Start Date End Date Gaby Fleming MD [address] [place] [address] PCP - General 01/29/06 documented as of this encounter
--- OUTSIDE RECORDS SUMMARY | 2024-06-25 10:37 | XMS_ITS | Encounter Summary ---
Author Organization [facility] Address [address] [place] [address] Care Team Providers Care Registrar Museum Name Role Phone Gaby Fleming MD Primary Care Provider [phone] Encounter Details Date Type Department Care Team (Late st Contact Info) Description 05/13/2014 Emergency Room External to [facility], Provider EAR PAIN Social History Tobacco [...] on filedocumented in this encounter Care Teams Registrar Museum Relationship Specialty Start Date End Date Gaby Fleming MD [address] [place] [address] PCP - General 01/29/06 documented as of this encounter
--- OUTSIDE RECORDS SUMMARY | 2024-06-25 10:37 | XMS_ITS | Encounter Summary ---
Author Organization [facility] Address [address] [place] [address] Care Team Providers Care Dipper Fish Name Role Phone Gaby Fleming MD Primary Care Provider [phone] Encounter Details Date Type Department Care Team [...] on filedocumented in this encounter Care Teams Dipper Fish Relationship Specialty Start Date End Date Gaby Fleming MD [address] [place] [address] PCP - General 01/29/06 documented as of this encounter
--- OUTSIDE RECORDS SUMMARY | 2024-06-25 10:37 | XMS_ITS | Encounter Summary ---
Author Organization [facility] Address [address] [place] [address] Care Team Providers Care Public Health Aides Teacher Name Role Phone Gaby Fleming MD Primary Care Provider [phone] Encounter Details Date Type Department Care Team (Latest Contact Info) Description 10/17/1996 Orders Only Rosetta Gramajo MD [address] [place] [address] Social History Tobacco Use Types Packs/Day Years [...] on filedocumented in this encounter Care Teams Public Health Aides Teacher Relationship Specialty Start Date End Date Gaby Fleming MD [address] [place] [address] PCP - General 01/29/06 documented as of this encounter
--- OUTSIDE RECORDS SUMMARY | 2024-06-25 10:37 | XMS_ITS | Encounter Summary ---
Author Organization [facility] Address [address] [place] [address] Care Team Providers Care Linux Systems Analyst Name Role Phone Gaby Fleming MD Primary Care Provider [phone] Encounter Details Date Type Department Care Team (Latest Contact Info) Description 05/25/1998 Orders Only Karan Garcia MD [address] [place] [address] Social History Tobacco Use Types Packs/Day Years [...] on filedocumented in this encounter Care Teams Linux Systems Analyst Relationship Specialty Start Date End Date Gaby Fleming MD [address] [place] [address] PCP - General 01/29/06 documented as of this encounter
--- OUTSIDE RECORDS SUMMARY | 2024-06-25 10:37 | XMS_ITS | Encounter Summary ---
Author Organization [facility] Address [address] [place] [address] Care Team Providers Care All Source Collection Manager Name Role Phone Gaby Fleming MD Primary Care Provider [phone] Encounter Details Date Type Department Care Team (Late st Contact Info) Description 03/11/2014 Correspondence None No Primary/Referring, Phy EQUIPMENT LENS COATING TECHNICIAN TICKET Social History Tobacco Use Types Packs/Day [...] on filedocumented in this encounter Care Teams All Source Collection Manager Relationship Specialty Start Date End Date Gaby Fleming MD [address] [place] [address] PCP - General 01/29/06 documented as of this encounter
--- OUTSIDE RECORDS SUMMARY | 2024-06-25 10:37 | XMS_ITS | Encounter Summary ---
Author Organization [facility] Address [address] [place] [address] Care Team Providers Care Professor Criminal Justice Name Role Phone Gaby Fleming MD Primary Care Provider [phone] Encounter Details Date Type Department Care Team (Latest Contact Info) Description 06/09/2014 Consent for Procedure/Treatme nt [facility] [address] [facility] [address] [place] [address] METHACHOLINE CHALLENGE TEST Social History Tobacco Use [...] filedocumented in this encounter Care Teams Professor Criminal Justice Relationship Specialty Start Date End Date Gaby Fleming MD [address] [place] [address] PCP - General 01/29/06 documented as of this encounter
--- OUTSIDE RECORDS SUMMARY | 2024-06-25 10:37 | XMS_ITS | Encounter Summary ---
Author Organization [facility] Address [address] [address] Care Team Providers Care Medical Psychotherapist Name Role Phone Gaby Fleming MD Primary Care Provider [phone] Encounter Details Date Type Department Care Team [...] filedocumented in this encounter Care Teams Medical Psychotherapist Relationship Specialty Start Date End Date Gaby Fleming MD [address] [place] [address] PCP - General 01/29/06 documented as of this encounter
--- OUTSIDE RECORDS SUMMARY | 2024-06-25 10:37 | XMS_ITS | Encounter Summary ---
[facility] Address [address] [place] [address] Care Team Providers Care Sensitometrist Name Role Phone Gaby Fleming MD Primary Care Provider [phone] Encounter Details Date Type Department Care Team [...] on filedocumented in this encounter Care Teams Sensitometrist Relationship Specialty Start Date End Date Gaby Fleming MD [address] [place] [address] PCP - General 01/29/06 documented as of this encounter
--- OUTSIDE RECORDS SUMMARY | 2024-06-25 10:37 | XMS_ITS | Encounter Summary ---
Author Organization [facility] Address [address] [place] [address] Care Team Providers Care Cable Tower Operator Name Role Phone None Reported, Pcp Primary Care Provider Unavail able Reason for Referral * Outpatient (Routine) - Closed Specialty Diagnoses / Procedures Referred By Horacio marino Referred To Contact Neurology Diagnoses Demyelinating Disease Central Nervous System (HCC) Gagan Vera M.D. Phone: tel: fax: [facility] Referral ID Status Reason Start Date Expiration Date Visits Re quested Visits Authorized [id number] Closed 07/30/2018 07/30/2019 1 1 Encounter Details Date Type Department Care Team (Latest Contact Info) Description 07/30/2018 [facility] [address] [place] [address] Gagan Vera M.D. 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) Social History Tobacco Use Types Packs/Day Years Used Date Smoking Tobacco: Never Assessed Comments Unknown Sex and Gender Information Value Date Recorded Sex Assigned at Female 01/02/2021 11:08 AM CDT Legal Sex Female 10:48 AM CDT Gender Identity Female 03/11/2019 12:39 PM [employer] Sexual Orientation Straight 03/11/2019 12 :39 PM [employer] documented as of this encounter Plan of [...] Pending 04/12/2021 04/12/2021 04/13/2021 6 :18 PM AGRICULTURAL ENGINEERING TECHNICIANS documented as of this encounter Care Teams Cable Tower Operator Relationship Specialty Start Date End Date None Reported, Pcp PCP - General Family Medicine 01/26/24 documented as of this encounter
--- OUTSIDE RECORDS SUMMARY | 2024-06-25 10:37 | XMS_ITS | Encounter Summary ---
Author Organization [facility] Address [address] [address] Care Team Providers Care Musical Instrument Maker Or Repairer Name Role Phone Gaby Fleming MD Primary Care Provider [phone] Encounter Details Date Type Department Care Team [...] on filedocumented in this encounter Care Teams Musical Instrument Maker Or Repairer Relationship Specialty Start Date End Date Gaby Fleming MD [address] [place] [address] PCP - General 01/29/06 documented as of this encounter
--- OUTSIDE RECORDS SUMMARY | 2024-06-25 10:37 | XMS_ITS | Encounter Summary ---
Author Organization [facility] Address [address] [place] [address] Care Team Providers Care Foreign Languages Department Chair Name Role Phone Gaby Fleming MD Primary Care Provider [phone] Encounter Details Date Type Department Care Team (Latest Contact Info) Description 06/30/1997 Orders Only Arielle Caraballo, DO [address] [place] [address] Social History Tobacco Use Types Packs/Day Years [...] on filedocumented in this encounter Care Teams Foreign Languages Department Chair Relationship Specialty Start Date End Date Gaby Fleming MD [address] [place] [address] PCP - General 01/29/06 documented as of this encounter
--- OUTSIDE RECORDS SUMMARY | 2024-06-25 10:37 | XMS_ITS ---
Author Organization [facility] Care Team Providers Care Supervisor Alteration Workroom Name Role Phone Melissa Chacko Unavailable Unavailable Lucila Herring Unavailable Unavailable Andrey Romano Unavailable Unavailable Allergies and adverse reactions Code CodeSystem Substance Reaction Severity StartDate Concern Status 014297767 SNOMED CT Sulfa Antibiotics Mild 08/14/2022 active SULFA Unknown 08/14/2022 active 7454 RXNORM Nitrofurantoin Unknown 08/14/2022 active IVP Dye Unknown 08/14/2022 active 5973 RXNORM Ioxaglate Unknown 08/14/2022 active Hand Train Announcer Anaphylaxis (code- 05292174, SNOMED CT) Severe 08/14/2022 active Contrast Moderate 08/14/2022 active Care Team Name Role Address Phone Organization Dates Andrey Romano PCP [facility] [address] [place] [address], [address], [place], [address], [place] (Office): [facility] 08/14/2022 - 09/05/2022 Melissa Chacko Attending Physician [facility] 08/14/2022 - 09/05/2022 Lucila Herring Attending Physician [address], [place], [address], [place] States (Office): : [facility] 08/14/2022 - 09/05/2022 Immunizations Immunization [...] completed tuberculin skin test; unspecified formulation lotNumber: [id number] expiry: 09/05/2024 Mfg: [employer] Given 0.1 ml Right Forearm intradermally Step 2 of Multi-step with next step required 98 CVX created date: 08/28/2022 consent date: 08/28/2022 administer ed date: 08/28/2022 Educated by Mary Dennis RN on 08/28/2022 TB 2 Step Mantoux Skin Test completed tuberculin skin test; unspecified formulation lotNumber: [id number] expiry: 09/05/2024 Mfg: [employer] Given [...] date: 08/14/2022 administer ed date: 02/07/2012 PCV13, [id number] completed Pneumococcal conjugate vaccine 20-valent (PCV20), polysaccharide [id number] conjugate, adjuvant, preservative free 216 CVX created [...] free, 30 mcg/0.3mL dose, holli-sucrose formulation Mfg: [employer]CON[employer] 217 CVX created date: 08/14/2022 administer ed date: 05/09/2020 COVID-19 Vaccine dose 3 completed unknown vaccine or immune globulin Mfg: [employer] 999 CVX created date: 08/14/2022 administer ed date: 01/01/2021 COVID-19 Vaccine dose 4 completed SARS-COV-2 (COVID-19) vaccine, mRNA, spike protein, LNP, preservative free, 30 mcg/0.3mL dose 208 CVX created date: 08/14/2022 administer ed date: 09/15/2021 COVID-19 Vaccine dose 5 completed SARS-COV-2 (COVID-19) vaccine, mRNA, spike protein, LNP, preservative free, 30 mcg/0.3mL dose Mfg: [employer] 208 CVX created date: 08/14/2022 administer ed [...] AGE-RELATED OSTEOPOROSIS WITHOUT CURRENT PATHOLOGICAL FRACTURE 08/14/[address] active 2 ANEMIA, UNSPECIFIED 08/14/[address] active 3 ANXIETY DISORDER, UNSPECIFIED 08/14/[address] active 4 BORDERLINE PERSONALITY DISORDER 08/14/2022200088213075 SNOMED CT active 5 CONVERSION DISORDER WITH MIXED SYMPTOM PRESENTATION 08/14/[address] active 6 DEPENDENCE ON OTHER ENABLING MACHINES AND DEVICES 08/14/[address] active 7 FRACTURE OF UNSPECIFIED PART OF NECK OF RIGHT FEMUR, SUBSEQUENT ENCOUNTER FOR CLOSED FRACTURE WITH ROUTINE HEALING 08/14/[address] active 8 GASTRO-ESOPHAGEAL REFLUX DISEASE WITHOUT ESOPHAGITIS 08/14/[address] active 9 IRRITABLE BOWEL SYNDROME, UNSPECIFIED 08/14/[address] active 10 HALFWAY (CURRENT) USE OF ANTICOAGULANTS 08/14/[address] active 11 MAJOR DEPRESSIVE DISORDER, RECURRENT SEVERE WITHOUT PSYCHOTIC FEATURES 08/14/[address] active 12 NONINFECTIVE GASTROENTERITIS AND COLITIS, UNSPECIFIED 08/14/[address] active 13 OBESITY, UNSPECIFIED 08/14/[address] active 14 OBSTRUCTIVE SLEEP APNEA (ADULT) (PEDIATRIC) 08/14/[address] active 15 ORTHOSTATIC HYPOTENSION 08/14/[address] active 16 PERSONAL HISTORY OF OTHER MENTAL AND BEHAVIORAL DISORDERS 08/14/[address] active 17 POST-TRAUMATIC STRESS DISORDER, UNSPECIFIED 08/14/[address] active 18 UNSPECIFIED ASTHMA, UNCOMPLICATED 08/14/[address] active Reason for Referral No Reasons for Referral Entered Social History Social History Observation Description Start Date End Date Code Code System Current Smoking Status Tobacco smoking consumption unknown 105541715 SNOMED CT Sex Assigned At Female 1955 72979-9 [facility] Vital Signs Code Code System Vitals Name Values and Units Timing Information 90992-7 [facility] Pain Level Value=4.0 09/05/2022 22162-0 [facility] O2 % BldC Oximetry Value=96.0 Units= % 09/04/2022 8310-5 [facility] Body Temperature Value=97.7 Units= F 09/04/2022 9279-1 [facility] Respiratory Rate Value=18.0 Units=/m in 09/04/2022 8462-4 [facility] Blood Pressure-Diastolic Value=65 Un its=mmHg 09/04/2022 8480-6 [facility] Blood Pressure-Systolic Oebdv=596 Un its=mmHg 09/04/2022 8867-4 [facility] Heart rate Ebibq=016.0 Units=/min 09/04/2022 36612-0 [facility] Weight Hqqzf=387.0 Units=Lbs 07/2022 8302-2 [facility] Height Value=62.0 Units=Inches 08/14/2022
--- OUTSIDE RECORDS SUMMARY | 2024-06-25 10:37 | XMS_ITS | Clinical Summary ---
Author Organization [facility] Address [address] [place] [address] Care Team Providers Care Boat Hoist Operator Helper Name Role Phone None Reported, Pcp Primary Care Provider Unavail able Source Comments Patient records contain information from all sites at [facility]. For routine questions regarding patient records, call [phone] during business hours, M-F 8:00 AM - 5:00 PM Central Time. Record requests for emergency care only can be directed to [phone] at any time.[facility] Allergies Active Allergy Reactions Criticality [...] bedtime. 05/20/19 21 Active miscellaneous medical supply [facility] CPAP machine for home use at pressure [...] Psychiatric Father scrooge Other cancer Maternal Grandmother Orxannajose Montes De O[place] Stroke Maternal Grandmother Roxanna [...] Alive Daughter 1 Amy Alive Daughter 2 Jayne Alive Father scrooge Alive Maternal Grandmother Roxanna [...] drink = 0.6 oz pur e alcohol) [facility] Utilities Answer Date Recorded In the [...] How often do you attend chur or christianity services? More than 4 times per year 12/23/2021 Do you belong to any clubs o r organizations such as orthodoxy groups, unions, fraternal or athletic groups, or [...] Answer Date Recorded PHQ-2 Score 2 01/21/2024 [facility] [place] of Occupat ional Health - Occupational Stress [...] Master's degree (e.g., MA, MS, Tc, MEd, FRONT DESK AUXILIARY, [employer]) 09/07/2018 Comments Unknown Sex and Gender Information Value Date Recorded Sex Assigned at Female 01/02/2021 11:08 AM CDT Legal Sex Female 10:48 AM CDT Gender Identity Female 03/11/2019 12:39 PM DIRECTOR OF ELEMENTARY EDUCATION Sexual Orientation Straight 03/11/2019 12 :39 PM DIRECTOR OF ELEMENTARY EDUCATION Last Filed Vital Signs Vital Sign Reading Time Taken Comments Blood Pressure 118/58 03/16/2024 10:38 AM DIRECTOR OF ELEMENTARY EDUCATION Pulse 93 03/16/2024 10:38 AM DIRECTOR OF ELEMENTARY EDUCATION Temperature 36.6 C (97.9 F) 01/08/2021 11:04 AM CDT Respiratory Rate - - Oxygen Saturation - - Inhaled Oxygen Concentration - - Weight 91.7 kg (202 lb 2.6 oz) 03/16/2024 10:38 AM DIRECTOR OF ELEMENTARY EDUCATION Height 160 cm (5' 2.99) 03/16/2024 10:38 AM DIRECTOR OF ELEMENTARY EDUCATION Body Mass Index 35.82 03/16/2024 10:38 AM DIRECTOR OF ELEMENTARY EDUCATION Plan of Treatment Health Maintenance Due Date [...] this topic Medical Devices Implanted Type Area Research Home Economist Device Identifier Shelf Expiration Date Model / Serial / Lot Hardware E.G. Pins/Screws/Ld s-03/31/2022 Implanted:03/31 (Quantity not on file) Hardware e.g. pins/screws/ro ds Right: Hip Description:Pins and Screws - Implantable Loop Recorder-2018 Implanted:03/17 (Quantity not on file) Implantable Loop Recorder Left: Chest Medtronic [id number] / [id number] S / Insurance [facility] Care Teams Boat Hoist Operator Helper Relationship Specialty Start Date End Date None Reported, Pcp PCP - General Family Medicine 01/26/24
--- OUTSIDE RECORDS SUMMARY | 2024-06-25 10:37 | XMS_ITS | Encounter Summary ---
[facility] Organization [facility] Address [address] [place] [address] Care Team Providers Care Warranty Administrator Name Role Phone Gaby Fleming MD Primary Care Provider [phone] Encounter Details Date Type Department Care Team [...] on filedocumented in this encounter Care Teams Warranty Administrator Relationship Specialty Start Date End Date Gaby Fleming MD [address] [place] [address] PCP - General 01/29/06 documented as of this encounter
--- OUTSIDE RECORDS SUMMARY | 2024-06-25 10:37 | XMS_ITS | Encounter Summary ---
Author Organization [facility] Address [address] [place] [address] Care Team Providers Care Booster Operator Name Role Phone Gaby Fleming MD Primary Care Provider [phone] Encounter Details Date Type Department Care Team (Latest Contact Info) Description 06/06/1995 Orders Only [place] [address] Social History Tobacco Use Types Packs/Day Years [...] on filedocumented in this encounter Care Teams Booster Operator Relationship Specialty Start Date End Date Gaby Fleming MD [address] [place] [address] PCP - General 01/29/06 documented as of this encounter
--- OUTSIDE RECORDS SUMMARY | 2024-06-25 10:38 | XMS_ITS | Encounter Summary ---
Author Organization [facility] Address [address] [place] [address] Care Team Providers Care Web Pressman Name Role Phone Gaby Fleming MD Primary Care Provider [phone] Encounter Details Date Type Department Care Team [...] on filedocumented in this encounter Care Teams Web Pressman Relationship Specialty Start Date End Date Gaby Fleming MD [address] [place] [address] PCP - General 01/29/06 documented as of this encounter
--- OUTSIDE RECORDS SUMMARY | 2024-06-25 10:38 | XMS_ITS | Encounter Summary ---
Author Organization [facility] Address [address] [place] [address] Care Team Providers Care Emergency Dept Tech Name Role Phone Gaby Fleming MD Primary Care Provider [phone] Encounter Details Date Type Department Care Team (Late st Contact Info) Description 12/14/2015 Correspondence External to External, [place] [address] 2015 HEALTH PROVIDER SCREENING FORM Social History [...] on filedocumented in this encounter Care Teams Emergency Dept Tech Relationship Specialty Start Date End Date Gaby Fleming MD [address] [place] [address] PCP - General 01/29/06 documented as of this encounter
--- OUTSIDE RECORDS SUMMARY | 2024-06-25 10:38 | XMS_ITS | Encounter Summary ---
Author Organization [facility] Address [address] [place] [address] Care Team Providers Care Door Worker Name Role Phone Gaby Fleming MD Primary Care Provider [phone] Encounter Details Date Type Department Care Team [...] on filedocumented in this encounter Care Teams Door Worker Relationship Specialty Start Date End Date Gaby Fleming MD [address] [place] [address] PCP - General 01/29/06 documented as of this encounter
--- OUTSIDE RECORDS SUMMARY | 2024-06-25 10:38 | XMS_ITS | CCD ---
Author Organization Unknown Care Team Providers Care Director Of Academic Support Name Role Phone Animal Treatment Investigator, [place] Primary Care Provider Unava ilable Unavailable Chronic Care Management Unavaila ble Summary Purpose DataExchange Insurance Providers Payer name Policy type / Coverage type Covered green party ID Effective Begin Date Effective End Date [facility] Commercial Insurance [id number] Unknown Unkn own Family History Family History data not found Medication Administered No Medication Administered data Reason For Visit No Reason For Visit data
--- OUTSIDE RECORDS SUMMARY | 2024-06-25 10:38 | XMS_ITS | Encounter Summary ---
Author Organization [facility] Address [address] [place] [address] Care Team Providers Care Plate Setter Name Role Phone Gaby Fleming MD Primary Care Provider [phone] Encounter Details Date Type Department Care Team (Late st Contact Info) Description 01/10/2015 Correspondence [facility] Psychiatry [address] [place] [id number] Jaycob Ayala MD LETTER Social History Tobacco [...] on filedocumented in this encounter Care Teams Plate Setter Relationship Specialty Start Date End Date Gaby Fleming MD [address] [place] [address] PCP - General 01/29/06 documented as of this encounter
--- OUTSIDE RECORDS SUMMARY | 2024-06-25 10:38 | XMS_ITS | Encounter Summary ---
Author Organization [facility] Address [address] [place] [address] Care Team Providers Care Rubber Gasket Inspector Trimmer Name Role Phone Gaby Fleming MD Primary Care Provider [phone] Encounter Details Date Type Department Care Team (Late st Contact Info) Description 02/02/2016 Refill Order [facility] [address] [place] [phone] [place] [address] [place] [id number] Social History Tobacco Use Types Packs/Day [...] Results * Hemoglobin, Blood (02/12/2016 2:43 PM PAY CLERK) Hemoglobin 12.7 12.0 - 16.0 g/dl [facility] 02/12/2016 2:43 PM PAY CLERK 02/12/2016 2:45 PM PAY CLERK Narrative [facility] - 02/12/2016 6:50 PM PAY CLERK Performed at [facility], [address] [place] [id number] [place] Gaby Fleming MD LAB_1 Final Resul t [facility] [phone] documented in this encounter Visit Diagnoses Diagnosis Encounter for long-term (current) use of medications- Primary Encounter for long-term (current) use of other medications Acute gout of left knee, unspecified cause- Primary Encounter for long-term (current) use of medications Encounter for long-term (current) use of other medications documented in this encounter Care Teams Rubber Gasket Inspector Trimmer Relationship Specialty Start Date End Date Gaby Fleming MD [address] [place] [address] PCP - General 01/29/06 documented as of this encounter
--- OUTSIDE RECORDS SUMMARY | 2024-06-25 10:38 | XMS_ITS | Clinical Summary ---
Author Organization [facility] Address [address] [place] [address] Care Team Providers Care Tomography Technologist Name Role Phone Gaby Fleming Unavailable [phone] [facility] Care, Harvey Unavailable Holli Thomas DO Unavailable [phone] Angi Estevez DO Primary Care Provider [phone] Allergies Active Allergy Reactions Criticality Noted Date [...] Detail In Comments) Anaphylaxis High 08/04/2015 Hand cotton ginner helper used by someone else in her group [...] adrenal insufficiency; following with Dr. 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 Formerly known as conversion disorder. Tinnitus, bilateral [...] Type Department Care Team Description 06/23/2024 Refill [facility] [address] [place] [address] Shaqra Angi Netta, DO Refill Request (Metoprolol Succinate) 06/15/2024 Nurse Triage [facility] [address] [place] [address] Lewqra Angi Netta, DO Urinary Problem 05/28/2024 10:30 AM DINING ROOM HELPER Ancillary Procedure [address] [address] 05/27/2024 Travel 05/20/2024 10:30 AM DINING ROOM HELPER Office Visit [address] [address] Yony Gao MD Consult (Diarrhea 3-6 x daily, lower abdominal cramping x years, sometimes stays in bed due to abdominal pain, taking imodium & dicyclomine daily, severe heartburn x 4 months ) 05/19/2024 Travel 04/28/2024 Patient Outreach [facility] Care Management - Advanced Care Team [facility] [place] [address] Ella Vargas Medication Management (CANCEL AND R/S CMR - PHARMD OUT OF OFFICE) 04/26/2024 Telephone [facility] [address], [place] [id number] Marilyn Vanegas, PharmD Pharmacist Medication Management 04/25/2024 Travel from Last 3 Months Immunizations Immunization Administration Dates Next Due COVID-19 VACCINE SPIKEVAX (M ODERNA 50MCG/0.5ML) 12YO+ PFS 01/21/2023 COVID-19 vaccine (DirectAdoptions.com-Bio NTech 30mcg/0.3mL) 12YO+ BIVALENT PF, MDV 01/18/2022 COVID-19 vaccine (DirectAdoptions.com-Bio NTech 30mcg/0.3mL) 12YO+ SANTI-SUCROSE PF, MDV 09/15/2021 COVID-19 vaccine (DirectAdoptions.com-Bio NTech 30mcg/0.3mL) PF, MDV 09/15/2021,01/01/2021,05/09/2020,2020 DT (Age [...] PM CDT Legal Sex Female 7:01 AM DINING ROOM HELPER Gender Identity Female 11/19/2021 5:38 PM CDT Sexual Orientation Straight 11/19/2021 5: 38 PM CDT Obstetrics History Para Term AB IAB SAB Ectopic Multiple Livin g Live Births 0 0 0 0 0 0 0 0 Last Filed Vital Signs Vital Sign Reading Time Taken Comments Blood Pressure 124/77 05/20/2024 10:35 AM DINING ROOM HELPER Pulse 110 05/20/2024 10:35 AM DINING ROOM HELPER Temperature 36.9 C (98.5 F) 09/09/2023 11:10 AM CDT Respiratory Rate 18 09/18/2023 11:0 4 AM CDT Oxygen Saturation 97% 05/20/2024 10: 35 AM DINING ROOM HELPER Inhaled Oxygen Concentration - - Weight 89.3 kg (196 lb 12.8 oz) 025 10:35 AM DINING ROOM HELPER Height 158.5 cm (5' 2.4) 09/18/2023 11 :04 AM CDT Body Mass Index 35.54 09/18/2023 11:04 AM CDT Plan of Treatment Health Maintenance Due Date Last Done Comments RSV vaccine for adults or (1 - Risk 60-74 years 1-dose series) 2017 Influenza Vaccine (#1) 2023 , 01/18/2022, 12/23/2020, Additional history exists Colonoscopy through age 75 01/08/202401/07 (Completed outside of [facility]) Mammogram for age 45-75 02/28/2024 02/28/20, 12/24/2021, 12/29/2020 (Completed outside of [facility]) Medicare Wellness for age 65+ 03/07/2024 03/07/2023 [...] Completed 02/27/2023 Medical Devices Implanted Type Area Contract Associate Device Identifier Shelf Expiration Date Model / Serial / Lot Mesh Hiatal 7x10cm Bio-A - [id number] Implanted:Qty: 1 on 01/22/2022 by Tamir Kimbrough ra, MD at [facility] N/A: Abdomen [employer] 09/17/2024 [id number] / / [id number] Procedures Procedure Name Priority Date/Time Associated Diagnosis Comments CT ABDOMEN PELVIS WO Routine 05/28/2024 10:13 AM DINING ROOM HELPER Chronic diarrhea RLQ abdominal pain LIPID PANEL W REFLEX MEASURED LDL Routine 03/07/2023 10:18 AM DINING ROOM HELPER Screening cholesterol level XR DXA BONE DENSITY 2 SITES AXIAL Routine 02/27/2023 11:35 AM DINING ROOM HELPER Postmenopausal XR MAMMO PATIENCE BILAT SCREEN Routine 02/27/2023 11:12 AM DINING ROOM HELPER Visit for screening mammogram ANTI HCV Routine 10/18/2021 12:14 PM CDT Need for hepatitis C screening test from Last 3 Months or Most Recently Relevant to Health Maintenance Results * CT ABDOMEN PELVIS WO (05/28/2024 10:13 AM DINING ROOM HELPER) Anatomical Region Laterality Modality Abdomen, Pelvis, AORTA, LIVER, SPLEEN Computed Tomography 05/28/2024 1:29 PM DINING ROOM HELPER Narrative 05/28/2024 1:29 PM DINING ROOM HELPER For Patients: As a result of the [...] W REFLEX MEASURED LDL (03/07/2023 10:18 AM DINING ROOM HELPER) CHOLESTEROL,TOTAL 203(H) 100 - 199 mg/dL 03/07/2023 4:59 PM DINING ROOM HELPER [facility] [employer] [facility] Comment: Cholesterol, Total Reference Ranges Desirable <200 mg/dL Borderline 200-239 mg/dL High >=240 mg/dL TRIGLYCERIDES 150(H) <150 mg/dL 03/07/2023 4:59 PM DINING ROOM HELPER [facility] [employer] [facility] HDL CHOLESTEROL 73 >40 mg/dL 3 4:59 PM DINING ROOM HELPER [facility] [employer] [facility] NON-HDL CHOLESTEROL 130 <145 mg/dl 03/07/2023 4:59 PM DINING ROOM HELPER [facility] [employer] [facility] CHOL/HDL RATIO 2.78 <4.50 03/07/2023 4:59 PM DINING ROOM HELPER [facility] LDL CHOLESTEROL 100 <=130 mg/dL 03/07/2023 4:59 PM DINING ROOM HELPER [facility] VLDL CHOLESTEROL 30 <=30 mg/dL 03/07/2023 4:59 PM DINING ROOM HELPER [facility] PROVIDER ORDERED STATUS RANDOM 03/07/2023 4:59 PM DINING ROOM HELPER [facility] Blood BLOOD SPECIMEN / Unknown Venipuncture / Unknown 03/07/2023 10:18 AM DINING ROOM HELPER 03/07/2023 10:25 AM DINING ROOM HELPER us Angi Netta Lewbehzad DO CHEMISTRY Final Result [facility] [address] [place] [address], * (ABNORMAL) XR DXA BONE DENSITY 2 SITES AXIAL [99289.1] (02/27/2023 11:35 AM DINING ROOM HELPER) Anatomical Region Laterality Modality Spine, HIPS, HIPL, HIPR Other Impressions 03/10/2023 7:43 AM DINING ROOM HELPER Osteoporosis. RECOMMENDATIONS: The National Osteoporosis Foundation recommends [...] to assess therapeutic efficacy. Marisa Orozco PA-C [facility] 03/10/2023 Narrative 03/10/2023 7:43 AM DINING ROOM HELPER For Patients: Results are automatically released to your [employer] (iRule) account once available, in compliance with federal regulations. This means that you may see your results before your provider has had a chance to review them. Please allow 2-3 business days for your provider to comment on the results. XR DXA Bone Mineral Density (BMD) EXAM LOCATION: [address] [id number] PATIENT NAME: Sophie M Edward DATE OF [...] two scanners are made by the same incident coordinator. PROCEDURE: Dual-energy x-ray absorptiometry performed with routine [...] MAMMO PATIENCE BILAT SCREEN (02/27/2023 11:12 AM DINING ROOM HELPER) Anatomical Region Laterality Modality BREASTS, Breast Left, Breast Right Bilateral Mammography Impressions 02/27/2023 2:01 PM DINING ROOM HELPER There is no radiographic evidence for malignancy. Recommend annual mammograms. MAMMOGRAM ASSESSMENT: ACR 1 Negative PATIENTS: You will also receive a letter with your examination results in an easy to read format. If you have questions about your results, please contact your referring provider. Narrative 02/27/2023 2:01 PM DINING ROOM HELPER For Patients: As a result of the Cures Act, medical imaging exams and procedure reports are released immediately into your electronic medical record. You may view this report before your referring provider. If you have questions, please contact your health care provider. XR MAMMO PATIENCE BILAT SCREEN [[id number]] CLINICAL HISTORY: This is an asymptomatic 67 y.o. patient. INDICATION FOR EXAM: Mammogram Screening. TECHNIQUE: CC & MLO views were obtained. This study was evaluated with the assistance of Computer-Aided Detection. Breast Tomosynthesis was used in interpretation. COMPARISON FILM: Yes 12/24/21 [facility] FINDINGS: The breasts have scattered areas of fibroglandular density. There are no dominant masses, suspicious micro calcifications or areas of architectural distortion. Angi Estevez DO MAMMO Final Result * ANTI HCV (10/18/2021 12:14 PM CDT) HEPATITIS C ANTIBODY Non-React fiona Non-React fiona 10/19/2021 3:38 AM CDT [facility] Comment:Antibodies to HCV no t detected; does not exclude the possibility of exposure to HCV. Blood BLOOD SPECIMEN / Unknown Venipuncture / Unknown 10/18/2021 12:14 PM CDT 10/18/2021 12:16 PM CDT Betina BRANTLEY SEND OUTS Final Resu lt [facility] [address] [place] [address], [place] from Last 3 Months or Most Recently Relevant to Health Maintenance Insurance MEDICARE PART A HB ONLY [facility] Advance Directives Documents on File Type Date Recorded Patient Ios Architect Expl anation POLST 09/09/2022 POLST 03/13/2022 09/10/22 [...] 1:02 PM 03/17/2019 3:50 PM Care Teams Tomography Technologist Relationship Specialty Start Date End Date Angi Estevez [place] [facility] [place] [address] PCP - General Family Practice 10/08/22 Gaby Fleming Family Practice 10/26/14 [facility] [address] [place] [address] 06/12/22 Holli Thomas DO [address] [facility] [address] [place] [address] Internal Medicine 09/13/22
--- OUTSIDE RECORDS SUMMARY | 2024-06-25 10:38 | XMS_ITS | Clinical Summary ---
Author Organization [facility] Address [address] [place] [address]. [place] [address] Care Team Providers Care Shipping Order Clerk Name Role Phone No Ref-Primary, Physician Primary [...] on file Legal Sex Female 3:05 AM SUPERVISOR HEAVY EQUIPMENT Gender Identity Not on file Sexual Orientation Not on file Last Filed Vital Signs Vital Sign Reading Time Taken Comments Blood Pressure 136/55 06/16/2017 12:08 PM CDT Pulse 85 03/16/2016 8:18 PM SUPERVISOR HEAVY EQUIPMENT Temperature 36.7 C (98 F) 06/16/2017 12:08 [...] Advance Directives For more information, please contact: [phone] * Full Code (Latest Code Status on File) Date Activated Date Inactivated Comments 06/29/2014 3:33 PM 06/30/2014 12:26 PM * Full Code Date Activated Date Inactivated Comments 10/17/2013 3:44 PM 06/29/2014 3:33 PM * Full Code Date Activated Date Inactivated Comments 10/16/2013 2:27 PM 10/17/2013 3:44 PM Care Teams Shipping Order Clerk Relationship Specialty Start Date End Date No Ref-Primary, Physician PCP - General 06/16/17
--- OUTSIDE RECORDS SUMMARY | 2024-06-25 10:39 | XMS_ITS | Clinical Summary ---
Author Organization [facility] Address [address] [place] [address] Care Team Providers Care Senior Planning Analyst Name Role Phone Kat Fleming MD Primary Care Provider Source Comments You are receiving this document as you are listed as the primary care provider,follow-up provider, or the patient has been referred to you for consultation.This is in compliance with the Medicare and[facility] EHR Incentive Program,which states Providers who transition their patient to another setting of careor provider of care or refers their patient to another provider of care shouldprovide summary care record for each transition of care or referral. [facility] Allergies Active Allergy Reactions Criticality Noted Date Comments Iodinated Contrast Media Anaphylaxis High 05/26/2014 Pt given Epi Pen and sent to ER post injection CT Contrast with pre medication given to patient prior to Contrast injection. 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 used by someone else in her group [...] opened 05/23/14, assigned to Radha Cantu RN, [facility], [place] [facility] @ [phone] Interactive with Asthma Disease Management Program, opt [...] deconditioning 07/26/2014 Vocal cord dysfunction 07/25/2014 CAREPLAN: [facility] CASE MANAGEMENT 2014 Overview (08/14/2016): Background: 11/04/14 Continue case open to Behavioral Health Case Manuel/Kim Spain @ [phone] Engaged in Complex Case Management: Santa Garcia RN [phone] Goals/Recommendations: CM will encourage patient to f/t [...] dated 09/08/2015. Also terminated by Deborah Campos [facility] (psychotherapy). Jaycob Ayala MD 09/08/2015, 3:15 PM Adjustment disorder with mix ed anxiety and depressed mood 08/04/2015 12/06/2015 Sensory integration disorder 07/26/2015 12/06/2015 Impaired mobility and ADLs 07/26/2015 0 12/06/2015 Severe episode of recurrent major depressive disorder, without psychotic features 06/09/201509/2015 Panic disorder without agoraphobia 04/20/2015 12/06/2015 [facility] Behavior[facility] Health Case Management 10/07/19 15 01/11/2016 Overview (10/06/2014): Background: Diagnosis: Major Depressive Disorder, Generalized Anxiety Disorder, PTSD, Panic Disorder and Dissociative Identity Disorder. Current situation: The member was recently hospitalized on a psych unit at [facility] from 10/02/14-10/06/14. She was discharged with psychotherapy and psychiatry appointments. Providers outside of [facility]: The member sees two therapists at [facility]. Filipe Mcwilliams and Faith Vazquez. They can be reached at [phone]. Goals/Recommendations: Outpatient Behavioral Health Disk GrinderAngio Technologist Information: Kim Sosa MA, [facility] [phone] Action Plan: The member was provided with [...] Disorder Panic disorder without agoraphobia 12/30/2013 02/03/2015 [facility] Behavioral Health Case Management 12/24/19 14 02/21/2014 Overview (12/23/2013): Background: Enrolled in [facility] [place] Director Regulatory Agency Program - coaching for Anxiety & Depression. Diagnosis: Dysthymia; Panic Disorder Current situation: Reports experiencing symptoms of depression and anxiety due to family stressors and significant challenges with maintaining a work/family balance. Patient has been participating in intensive mental health treatment since the middle of October. Patient s all 5 children live at home with her along with her elderly [id number]. Patient reports that she has experienced symptoms of depression for many years however, the anxiety is new for her and that she has challenges with her overall self-care. Providers outside of [facility]: Currently attending IOP at [facility] Goals/Recommendations: Outpatient Depression/Anxiety Retail Client Manager Contact Information: Garry Roman MS, [facility] [phone] Action Plan: To continue to work on improving overall self-care by developing a sleep schedule, engaging in physical activity, eating a balance diet, relaxation and participating in enjoyable activities. Retail Client Manager to provide health education information on overall self-care, stress relief, relaxation, anxiety, healthy eating as well as community support for anxiety/panic. Diverticulitis 10/16/2013 12/06/2015 Head revolving around 10/16/20132014 Nontoxic uninodular goiter 03/27/2004 1 04/05/2014 Immunizations Immunization Administration Dates Next Due DTaP 09/28/2014 Flu Vac (3+ yrs) 01/10/2012, 1,12/29/2008,2006,01/15/2006,01/11/2005,03/01/2004,1 04/04/2002,02/04/2002,02/04/2001, 000,01/18/1999 HepA-HepB ([place], 18+ yrs) 01/17/2016,06/02/19 03,12/25/2001 Influenza IIV4 (Quadrivalent ) 0.5mL (24954) 12/06/2015,12/22/2014,12/07/2013,2012 Influenza Vaccine (3+years) ([facility]) 01/09/2010,01/12/2008 Influenza, Unspecified Formulation 01/10/1998, [...] this topic Medical Devices Implanted Type Area Shade Bander Device Identifier Shelf Expiration Date Model / Serial / Lot Sling Advantage Mid-Urethral - [id number] Implanted:Qty: 1 on 02/21/2015 by Carlos Barrow MD at [facility] DEVICE N/A: VAGINA [employer] Scien sales executive 10/26/2017 [id number] / / [id number] Procedures Procedure Name Priority Date/Time Associated Diagnosis Comments LIPID PANEL & DIRECT LDL (IF NEEDED) Routine 03/19/2016 11:16 AM AIRCRAFT FUSELAGE FRAMER Pre-diabetes HEPATITIS C ANTIBODY, WITH REFLEX Routine 12/06/2015 9:36 AM CDT Preventative health care PAP TEST, ROUTINE Routine 09/06/2014 8:2 8 AM CDT Screening for cervical cancer MM MAMMOGRAM SCREENING BILAT W CAD Routine 04/11/2014 2:06 PM AIRCRAFT FUSELAGE FRAMER COLONOSCOPY Routine 08/09/2011 8:56 AM CDT Abn findings-GI tract from Last 3 Months or Most Recently Relevant to Health Maintenance Results * (ABNORMAL) Lipid Panel and Direct LDL(If Needed) (03/19/2016 11:16 AM AIRCRAFT FUSELAGE FRAMER) Hours Fasting 2 hours [facility] Cholesterol 179 0 - 199 mg/dl [facility] Triglyceride 161(H) 0 - 149 mg/dl [facility] HDL 40(L) >40 mg/dl [facility] LDL, Calc. 107 0 - 129 mg/dl [facility] Non HDL Chol, Calc 139 mg/dl [facility] 03/19/2016 11:1 6 AM AIRCRAFT FUSELAGE FRAMER 03/19/2016 11:17 AM AIRCRAFT FUSELAGE FRAMER Narrative [facility] - 03/19/2016 6:49 PM AIRCRAFT FUSELAGE FRAMER Performed at [facility], [address] [place], [place] [id number] us Kat Fleming MD LAB_1 Final Resul t Performing Organization Address [facility] Co de Phone Number [facility] [phone] * Hepatitis C Antibody, with Reflex (12/06/2015 9:36 AM CDT) Anti-HCV Negative (Non Reactive) [facility] Comment: Antibodies to HCV not detected. Does not exclude the possibility of exposure to HCV. 12/06/2015 9:36 AM CDT 12/06/2015 9:37 AM CDT Narrative [facility] - 12/06/2015 8:01 PM CDT Performed at [facility], [address] [place] [address] us Kat Fleming MD LAB_1 Final Resul t Performing Organization Address [facility] Co de Phone Number [facility] [phone] * PAP TEST, ROUTINE (09/06/2014 8:28 AM CDT) Cytology, Pap (NOTE) Parts Salesperson Cytology Report Patient Name: SOPHIE CASTRO Taken: 09/06/2014 Received: 09/06/2014 Reported: 09/12/2014 Physician(s): KAT FLEMING ([id number]) Source of Specimen Pap Test, Routine Cervical/Endocervi zane: Specimen Adequacy Satisfactory for evaluation. Endocervical component present. Final Cytologic Interpretation/Res ult NEGATIVE FOR INTRAEPITHELIAL LESION OR MALIGNANCY (NILM) Other Cytologic Findings Atrophy Electronically Signed Out By ABDELRAHMAN Andrew (ASCP) ABDELRAHMAN Andrew (ASCP) Pap Smear History Date of Last Menstrual Period: Menopausal Microscopic Description Microscopic examination is performed. [facility] Department of Pathology [address] [place] [address] [facility] 09/06/2014 8:28 AM CDT 09/06/2014 5:03 PM CDT Result [facility] Kat Fleming MD LAB_1 Final Resul t [facility] [phone] * MAMMOGRAM SCREENING BILATERAL (04/11/2014 2:06 PM AIRCRAFT FUSELAGE FRAMER) Anatomical Region Laterality Modality Breast Bilateral Mammography Narrative 04/12/2014 2:34 PM AIRCRAFT FUSELAGE FRAMER BILATERAL FULL FIELD DIGITAL SCREENING MAMMOGRAM Performed [...] RAD ZENA Final Resul t * COLONOSCOPY [[id number]] (08/09/2011 8:56 AM CDT) 08/09/2011 8:56 AM [...] previously scheduled. CPT(R) Code(s): --- Professional --- 23349, Colonoscopy, flexible, proximal to splenic flexure; diagnostic, with or without collection of specimen(s) by brushing or washing, with or without colon decompression (separate procedure) ICD9 Code(s): --- Professional --- 793.4, Nonspecific (abnormal) findings on radiological and other examination of gastrointestinal tract 562.10, Diverticulosis of colon (without mention of hemorrhage) CPT (R) 2011 [employer]. All Rights Reserved. The codes documented in this report are preliminary and upon director of elementary education review may be revised to meet current [...] previously scheduled. CPT(R) Code(s): --- Professional --- 94342, Colonoscopy, flexible, proximal to splenic flexure; diagnostic, with or without collection of specimen(s) by brushing or washing, with or without colon decompression (separate procedure) ICD9 Code(s): --- Professional --- 793.4, Nonspecific (abnormal) findings on radiological and other examination of gastrointestinal tract 562.10, Diverticulosis of colon (without mention of hemorrhage) CPT (R) 2011 [employer]. All Rights Reserved. The codes documented in this report are preliminary and upon director of elementary education review may be revised to meet current compliance requirements. Attending Participation: Ari Amanda MD 08/09/2011 9:21 AM Number of Addenda: 0 Note Initiated On: 08/09/2011 8:56 AM Ari Amanda MD DIGESTIVE CARE Final Result [facility] ([facility]) [place], [place] from Last 3 Months or Most Recently Relevant to Health Maintenance Insurance [facility] MEDICARE Advance Directives * Full Code (Latest Code Status on File) Date Activated Date Inactivated Comments 10/24/2014 4:56 AM 10/26/2014 2:53 PM * Full Code Date Activated Date Inactivated Comments 10/03/2014 12:15 PM 10/06/2014 1:15 PM * Full Code Date Activated Date Inactivated Comments 04/22/2014 8:28 PM 04/28/2014 4:20 PM Care Teams Senior Planning Analyst Relationship Specialty Start Date End Date Kat Fleming MD [address] [place] [address] PCP - General 01/29/06
--- OUTSIDE RECORDS SUMMARY | 2024-06-25 10:39 | XMS_ITS | Encounter Summary ---
Author Organization [facility] Address [address] [place] [address] Care Team Providers Care Laborer Landscape Name Role Phone Gaby Fleming MD Primary Care Provider [phone] Encounter Details Date Type Department Care Team [...] filedocumented in this encounter Care Teams Laborer Landscape Relationship Specialty Start Date End Date Gaby Fleming MD [address] [place] [address] PCP - General 01/29/06 documented as of this encounter
--- OUTSIDE RECORDS SUMMARY | 2024-06-25 10:39 | XMS_ITS | Encounter Summary ---
Author Organization [facility] Address [address] [place] [address] Care Team Providers Care Residential Program Coordinator Name Role Phone Gaby Fleming MD Primary Care Provider [phone] Encounter Details Date Type Department Care Team (Late st Contact Info) Description 07/31/2015 Correspondence External to External, [place] [address] LETTER SUCCESSFULL COMPLETED DBT TREATMENT Social History [...] filedocumented in this encounter Care Teams Residential Program Coordinator Relationship Specialty Start Date End Date Gaby Fleming MD [address] [place] [address] PCP - General 01/29/06 documented as of this encounter
--- OUTSIDE RECORDS SUMMARY | 2024-06-25 10:39 | XMS_ITS | Encounter Summary ---
Author Organization [facility] Address [address] [place] [address] Care Team Providers Care Kick Plate Installer Name Role Phone Gaby Fleming MD Primary Care Provider [phone] Encounter Details Date Type Department Care Team (Late st Contact Info) Description 09/18/2016 Correspondence [facility] [address] [facility]. [place], [place] [phone] Jason Barrett MD [address] [place], [place] [phone] [facility] Social History Tobacco [...] on filedocumented in this encounter Care Teams Kick Plate Installer Relationship Specialty Start Date End Date Gaby Fleming MD [address] [place] [address] PCP - General 01/29/06 documented as of this encounter
--- OUTSIDE RECORDS SUMMARY | 2024-06-25 10:39 | XMS_ITS | Encounter Summary ---
Author Organization [facility] Address [address] [place] [address] Care Team Providers Care Crystalizer Name Role Phone Gaby Fleming MD Primary Care Provider +[phone] Encounter Details Date Type Department Care Team (Late st Contact Info) Description 03/27/2015 Correspondence None No Primary/Referring, Phy E EQUIPMENT HOME WORKER TICKET Social History Tobacco Use Types Packs/Day [...] on filedocumented in this encounter Care Teams Crystalizer Relationship Specialty Start Date End Date Gaby Fleming MD [address] [place] [address] PCP - General 01/29/06 documented as of this encounter
--- OUTSIDE RECORDS SUMMARY | 2024-06-25 10:39 | XMS_ITS | Encounter Summary ---
Author Organization [facility] Address [address] [place] [address] Care Team Providers Care Blasting Entry Specialist Name Role Phone Gaby Fleming MD Primary Care Provider [phone] Encounter Details Date Type Department Care Team (Late st Contact Info) Description 06/30/2014 Outside Hospital External to [facility] Provider DISCHARGE SUMMARY Social History Tobacco Use [...] on filedocumented in this encounter Care Teams Blasting Entry Specialist Relationship Specialty Start Date End Date Gaby Fleming MD [address] [place] [address] PCP - General 01/29/06 documented as of this encounter
--- OUTSIDE RECORDS SUMMARY | 2024-06-25 10:39 | XMS_ITS | Encounter Summary ---
Author Organization [facility] Address [address] [place] [address] Care Team Providers Care French Pastry Cook Name Role Phone Gaby Fleming MD Primary Care Provider [phone] Encounter Details Date Type Department Care Team (Latest Contact Info) Description 11/22/2013 Correspondence [facility] Partial Hospitalization Program [address] [place] [id number] [facility] SAFETY PLAN Social History Tobacco Use Types [...] on filedocumented in this encounter Care Teams French Pastry Cook Relationship Specialty Start Date End Date Gaby Fleming MD [address] [place] [address] PCP - General 01/29/06 documented as of this encounter
--- OUTSIDE RECORDS SUMMARY | 2024-06-25 10:39 | XMS_ITS | Encounter Summary ---
Author Organization [facility] Address [address] [place] [address] Care Team Providers Care Filemaker Developer Name Role Phone Gaby Fleming MD Primary Care Provider [phone] Encounter Details Date Type Department Care Team (Late st Contact Info) Description 07/29/2014 Correspondence None No Primary/Referring, Phy EQUIPMENT TUBE AND ROD STRAIGHTENER TICKET Social History Tobacco Use Types Packs/Day [...] on filedocumented in this encounter Care Teams Filemaker Developer Relationship Specialty Start Date End Date Gaby Fleming MD [address] [place] [address] PCP - General 01/29/06 documented as of this encounter
--- OUTSIDE RECORDS SUMMARY | 2024-06-25 10:39 | XMS_ITS | Encounter Summary ---
Author Organization [facility] Address [address] [place] [address] Care Team Providers Care Receivable Executive Name Role Phone Gaby Fleming MD Primary Care Provider [phone] Encounter Details Date Type Department Care Team [...] on filedocumented in this encounter Care Teams Receivable Executive Relationship Specialty Start Date End Date Gaby Fleming MD [address] [place] [address] PCP - General 01/29/06 documented as of this encounter
--- OUTSIDE RECORDS SUMMARY | 2024-06-25 10:39 | XMS_ITS | Encounter Summary ---
[facility] Address [address] [place] [address] Care Team Providers Care Housekeeping/Laundry Supervisor Name Role Phone Gaby Fleming MD Primary Care Provider [phone] Encounter Details Date Type Department Care Team [...] on filedocumented in this encounter Care Teams Housekeeping/Laundry Supervisor Relationship Specialty Start Date End Date Gaby Fleming MD [address] [place] [address] PCP - General 01/29/06 documented as of this encounter
--- OUTSIDE RECORDS SUMMARY | 2024-06-25 10:39 | XMS_ITS | Encounter Summary ---
Author [facility] Address [address] [address] Care Team Providers Care Morgue Keeper Name Role Phone Gaby Fleming MD Primary Care Provider [phone] Encounter Details Date Type Department Care Team [...] on filedocumented in this encounter Care Teams Morgue Keeper Relationship Specialty Start Date End Date Gaby Fleming MD [address] [place] [address] PCP - General 01/29/06 documented as of this encounter
--- OUTSIDE RECORDS SUMMARY | 2024-06-25 10:39 | XMS_ITS | Encounter Summary ---
Author Organization [facility] Address [address] [place] [address] Care Team Providers Care Security Flex Officer Name Role Phone Gaby Fleming MD Primary Care Provider [phone] Encounter Details Date Type Department Care Team (Late st Contact Info) Description 03/28/2015 Correspondence [facility] [address] [place] [address] Gaby Fleming MD [address] [facility] [place] [address] DME EQUIPMENT PROOF OF DELIVERY Social [...] on filedocumented in this encounter Care Teams Security Flex Officer Relationship Specialty Start Date End Date Gaby Fleming MD [address] [facility] [address] PCP - General 01/29/06 documented as of this encounter
--- OUTSIDE RECORDS SUMMARY | 2024-06-25 10:39 | XMS_ITS | Encounter Summary ---
Author Organization [facility] Address [address] [place] [address] Care Team Providers Care Automotive Glass Mechanic Name Role Phone Gaby Fleming MD Primary Care Provider [phone] Encounter Details Date Type Department Care Team (Late st Contact Info) Description 07/12/2014 Correspondence [facility] [address] [place] [address]. [place], [place] [phone] Carlos Barrow MD [address] [place], [place] [phone] UROGYNECOLOGY QUESTIONNAIRE Social History Tobacco Use Types [...] on filedocumented in this encounter Care Teams Automotive Glass Mechanic Relationship Specialty Start Date End Date Gaby Fleming MD [address] [place] [address] PCP - General 01/29/06 documented as of this encounter
--- OUTSIDE RECORDS SUMMARY | 2024-06-25 10:39 | XMS_ITS | Encounter Summary ---
Author Organization [facility] Address [address] [place] [address] Care Team Providers Care Bit Tripoler Name Role Phone Gaby Fleming MD Primary Care Provider [phone] Encounter Details Date Type Department Care Team (Latest Contact Info) Description 07/14/2014 Consent for Procedure/Treatme nt [facility] [address] [facility] [address] [place] [address] INFORMED CONSENT URODYNAMIC TESTING Social History Tobacco [...] on filedocumented in this encounter Care Teams Bit Tripoler Relationship Specialty Start Date End Date Gaby Fleming MD [address] [place] [address] PCP - General 01/29/06 documented as of this encounter
--- OUTSIDE RECORDS SUMMARY | 2024-06-25 10:39 | XMS_ITS | Encounter Summary ---
Author Organization [facility] Address [address] [place] [address] Care Team Providers Care Slumber Room Attendant Name Role Phone Gaby Fleming MD Primary Care Provider [phone] Encounter Details Date Type Department Care Team [...] on filedocumented in this encounter Care Teams Slumber Room Attendant Relationship Specialty Start Date End Date Gaby Fleming MD [address] [place] [address] PCP - General 01/29/06 documented as of this encounter
--- OUTSIDE RECORDS SUMMARY | 2024-06-25 10:39 | XMS_ITS | Encounter Summary ---
Author Organization [facility] Address [address] [place] [address] Care Team Providers Care Revenue Stamper Name Role Phone Gaby Fleming MD Primary Care Provider [phone] Encounter Details Date Type Department Care Team [...] on filedocumented in this encounter Care Teams Revenue Stamper Relationship Specialty Start Date End Date Gaby Fleming MD [address] [place] [address] PCP - General 01/29/06 documented as of this encounter
--- OUTSIDE RECORDS SUMMARY | 2024-06-25 10:39 | XMS_ITS | Encounter Summary ---
Author Organization [facility] Address [address] [place] [address] Care Team Providers Care Machine Tailer Name Role Phone Gaby Fleming MD Primary Care Provider [phone] Encounter Details Date Type Department Care Team (Late st Contact Info) Description 10/06/[address] [facility] Radiology [address] [place] [phone] Radiology, Provider MRI SAFETY SHEET AND COMPATIBILITY [...] on filedocumented in this encounter Care Teams Machine Tailer Relationship Specialty Start Date End Date Gaby Fleming MD [address] [place] [address] PCP - General 01/29/06 documented as of this encounter
--- OUTSIDE RECORDS SUMMARY | 2024-06-25 10:39 | XMS_ITS | Encounter Summary ---
Author Organization [facility] Address [address] [place] [address] Care Team Providers Care Apprentice Stylist Name Role Phone Gaby Fleming MD Primary Care Provider [phone] Encounter Details Date Type Department Care Team [...] on filedocumented in this encounter Care Teams Apprentice Stylist Relationship Specialty Start Date End Date Gaby Fleming MD [address] [place] [address] PCP - General 01/29/06 documented as of this encounter
--- OUTSIDE RECORDS SUMMARY | 2024-06-25 10:39 | XMS_ITS | Encounter Summary ---
Author Organization [facility] Address [address] [place] [address] Care Team Providers Care E Learning Coordinator Name Role Phone Gaby Fleming MD Primary Care Provider [phone] Encounter Details Date Type Department Care Team (Latest Contact Info) Description 08/15/1994 Orders Only Myrna Armas [address] [address] Social History Tobacco Use Types Packs/Day Years [...] on filedocumented in this encounter Care Teams E Learning Coordinator Relationship Specialty Start Date End Date Gaby Fleming MD [address] [place] [address] PCP - General 01/29/06 documented as of this encounter
--- OUTSIDE RECORDS SUMMARY | 2024-06-25 10:39 | XMS_ITS | Encounter Summary ---
Author Organization [facility] Address [address] [place] [address] Care Team Providers Care Order Entry Administrator Name Role Phone Gaby Fleming MD Primary Care Provider [phone] Encounter Details Date Type Department Care Team (Late st Contact Info) Description 07/17/2015 Correspondence None No Primary/Referring, Phy HME EQUIPMENT COMMISSION AGENT LIVESTOCK TICKET Social History Tobacco Use Types Packs/Day [...] on filedocumented in this encounter Care Teams Order Entry Administrator Relationship Specialty Start Date End Date Gaby Fleming MD [address] [place] [address] PCP - General 01/29/06 documented as of this encounter
--- OUTSIDE RECORDS SUMMARY | 2024-06-25 10:39 | XMS_ITS | Encounter Summary ---
Author Organization [facility] Address [address] [place] [address] Care Team Providers Care Clinical Informaticist Name Role Phone Gaby Fleming MD Primary Care Provider +[phone] Encounter Details Date Type Department Care Team [...] on filedocumented in this encounter Care Teams Clinical Informaticist Relationship Specialty Start Date End Date Gaby Fleming MD [address] [place] [address] PCP - General 01/29/06 documented as of this encounter
--- OUTSIDE RECORDS SUMMARY | 2024-06-25 10:39 | XMS_ITS | Encounter Summary ---
Author Organization [facility] Address [address] [place] [address] Care Team Providers Care Sign Manufacturer Name Role Phone Gaby Fleming MD Primary Care Provider +[phone] Encounter Details Date Type Department Care Team [...] on filedocumented in this encounter Care Teams Sign Manufacturer Relationship Specialty Start Date End Date Gaby Fleming MD [address] [place] [address] PCP - General 01/29/06 documented as of this encounter
--- OUTSIDE RECORDS SUMMARY | 2024-06-25 10:39 | XMS_ITS | Encounter Summary ---
Author Organization [facility] Address [address] [place] [address] Care Team Providers Care Supervisor Type Photography Name Role Phone Gaby Fleming MD Primary Care Provider [phone] Encounter Details Date Type Department Care Team (Latest Contact Info) Description 08/19/1994 Orders Only Myrna Armas [address] [address] Social History Tobacco Use Types Packs/Day Years [...] on filedocumented in this encounter Care Teams Supervisor Type Photography Relationship Specialty Start Date End Date Gaby Fleming MD [address] [place] [address] PCP - General 01/29/06 documented as of this encounter
--- OUTSIDE RECORDS SUMMARY | 2024-06-25 10:39 | XMS_ITS | Encounter Summary ---
Author Organization [facility] Address [address] [place] [address] Care Team Providers Care Cigarette Paper Tester Name Role Phone Gaby Fleming MD Primary Care Provider [phone] Encounter Details Date Type Department Care Team (Late st Contact Info) Description 09/27/2016 Correspondence [facility]ty [facility] [address] [facility]. [place], [place] [phone] Jason Barrett MD [address] [place], [place] [phone] [facility] Social History Tobacco [...] on filedocumented in this encounter Care Teams Cigarette Paper Tester Relationship Specialty Start Date End Date Gaby Fleming MD [address] [place] [address] PCP - General 01/29/06 documented as of this encounter
--- OUTSIDE RECORDS SUMMARY | 2024-06-25 10:39 | XMS_ITS | Encounter Summary ---
Author Organization [facility] Address [address] [place] [address] Care Team Providers Care Diesel Power Shovel Operator Name Role Phone Gaby Fleming MD Primary Care Provider +[phone] Encounter Details Date Type Department Care Team (Late st Contact Info) Description 02/11/2013 Correspondence None No Primary/Referring, [facility] HEALTH PROVIDER SCREENING FORM Social History Tobacco [...] this encounter Progress Notes * No Primary/Referring, [facility] - 02/11/2013 12:00 AM CST RVISOR FACEPIECE LINE documented in this encounter Plan of Treatment Not on file documented as of this encounter Visit Diagnoses Not on filedocumented in this encounter Care Teams Diesel Power Shovel Operator Relationship Specialty Start Date End Date Gaby Fleming MD [address] [place] [address] PCP - General 01/29/06 documented as of this encounter
--- OUTSIDE RECORDS SUMMARY | 2024-06-25 10:39 | XMS_ITS | Encounter Summary ---
Author Organization [facility] Address [address] [place] [address] Care Team Providers Care Ict Support Engineer Name Role Phone Gaby Fleming MD Primary Care Provider +[phone] Encounter Details Date Type Department Care Team (Late st Contact Info) Description 07/17/2015 Correspondence None No Primary/Referring, Phy HME EQUIPMENT GEEK SQUAD AGENT TICKET CPAP Social History Tobacco Use Types [...] on filedocumented in this encounter Care Teams Ict Support Engineer Relationship Specialty Start Date End Date Gaby Fleming MD [address] [place] [address] PCP - General 01/29/06 documented as of this encounter
--- OUTSIDE RECORDS SUMMARY | 2024-06-25 10:39 | XMS_ITS | Encounter Summary ---
Author Organization [facility] Address [address] [place] [address] Care Team Providers Care Presetter Operator Name Role Phone Gaby Fleming MD Primary Care Provider [phone] Encounter Details Date Type Department Care Team [...] on filedocumented in this encounter Care Teams Presetter Operator Relationship Specialty Start Date End Date Gaby Fleming MD [address] [place] [address] PCP - General 01/29/06 documented as of this encounter
--- OUTSIDE RECORDS SUMMARY | 2024-06-25 10:39 | XMS_ITS | Encounter Summary ---
Author Organization [facility] Address [address] [place] [address] Care Team Providers Care Semiconductor Wafer Inspector Name Role Phone Gaby Fleming MD Primary Care Provider +[phone] Encounter Details Date Type Department Care Team (Late st Contact Info) Description 04/06/2015 Correspondence None No Primary/Referring, Phy HME EQUIPMENT HEAD CHAR FILTER TANK TENDER TICKET Social History Tobacco Use Types Packs/Day [...] on filedocumented in this encounter Care Teams Semiconductor Wafer Inspector Relationship Specialty Start Date End Date Gaby Fleming MD [address] [place] [address] PCP - General 01/29/06 documented as of this encounter
--- NOTE | 2024-06-25 10:42 | CRLHL7_ITS ---
For Patients: As a result of the Cures Act, medical imaging exams and procedure reports are released immediately into your electronic medical record. You may view this report before your referring provider. If you have questions, please contact your health care provider. Indication: FALL ON LEFT SIDE, ADDISONS DISEASE Technique: Frontal view of the chest and frontal and oblique views of the left ribs Comparison: Chest radiograph from August 09, 2022 and February 27, 2017 Findings/Impression: No acute, displaced fracture or malalignment. No suspicious osseous lesions. The soft tissues are without acute abnormality. Stable cardiac loop recorder in the left anterior chest. The cardiomediastinal silhouette and pulmonary vasculature are unremarkable. There is no focal airspace consolidation, pleural effusion, or pneumothorax. Nonobstructive bowel gas pattern. Dictated by Carlos Christine MD @ 06/25/2024 11:36:41 AM (Electronically Signed)
--- NOTE | 2024-06-25 11:42 | ED_ITS ---
HPI - General Adult General Chief complaint: Fall/Minor Trauma Stated complaint: Fall Time Seen by Provider: 06/25/24 10:16 Source: patient Mode of arrival: ambulatory Limitations: no limitations History of Present Illness HPI narrative: 69-year-old female, resident at [facility] comes in today after falling. Patient lost her balance and fell onto a stool. She does have a history of balance disorder and falls frequently. She states that she fell and hit her left elbow and left chest wall. She is complaining of left elbow pain. States that her left chest wall does not feel too uncomfortable but she does have a bruise there that she is concerned about. She is not short of breath. She did not hit her head or lose consciousness. She denies any neck pain or headache. Related Data Home Medications ?Medication ?Instructions ?Recorded ?Confirmed loperamide 2 mg capsule 4 mg PO QID PRN 10/02/21 06/25/24 meclizine 25 mg tablet 25 mg PO BID PRN 10/02/21 06/25/24 montelukast 10 mg tablet 10 mg PO HS 10/02/21 06/25/24 albuterol sulfate 90 mcg/actuation 1 puff inhalation Q4H PRN 06/07/22 06/25/24 aerosol inhaler cevimeline 30 mg capsule 1 cap PO BID 06/07/22 06/25/24 lorazepam 0.5 mg tablet 0.5 mg PO DAILY PRN 06/07/22 06/25/24 dicyclomine 10 mg capsule 10 mg PO Q6H PRN cramps 08/10/22 06/25/24 ondansetron HCl 8 mg tablet 8 mg PO TID PRN 08/10/22 06/25/24 venlafaxine 150 mg 300 mg PO DAILY 08/10/22 06/25/24 capsule,extended release 24 hr dextroamphetamine-amphetamine ER 1 cap PO DAILY 09/20/22 06/25/24 10 mg 24hr capsule,extend release divalproex 500 mg tablet,delayed 500 mg PO BID 09/20/22 06/25/24 release doxepin 10 mg capsule 10 mg PO DAILY 09/20/22 06/25/24 famotidine 40 mg tablet 40 mg PO QPM 06/17/24 06/25/24 fluticasone 500 mcg-salmeterol 50 1 inh inhalation 06/17/24 06/17/24 mcg/dose blistr powdr for inhalation guanfacine 1 mg tablet 1 mg PO QPM 06/17/24 06/25/24 hydrocortisone 5 mg tablet 5 mg PO 06/17/24 06/17/24 omeprazole 40 mg capsule,delayed 40 mg PO Q1D 06/17/24 06/25/24 release Previous Rx's ?Medication ?Instructions ?Recorded fludrocortisone 0.1 mg tablet 0.1 mg PO DAILY #30 tabs 08/14/22 midodrine 5 mg tablet 5 mg PO BID #60 tabs 08/14/22 diphenoxylate-atropine 2.5 1 tab PO DAILY #10 tabs 06/15/23 mg-0.025 mg tablet (Lomotil) Allergies Allergy/AdvReac Type Severity Reaction Status Date / Time nitrofurantoin Allergy Unknown Verified 06/25/24 10:04 Iodinated Contrast Media AdvReac Rash Verified 06/25/24 10:04 Sulfa (Sulfonamide AdvReac Rash Verified 06/25/24 10:04 Antibiotics) hand soft tile setter Allergy Severe Anaphylaxis Uncoded 06/17/24 12:31 Ioxaglate sodium Allergy Unknown Uncoded 06/17/24 12:31 Review of Systems Status of ROS: Reports: 6 or more systems reviewed and unremarkable except as noted in History and below [facility] Medical History Tear of medial meniscus of right knee ?S83.241A - Other tear of medial meniscus, current injury, right knee, initial encounter (ICD-10) Osteoarthritis of right knee ?M17.11 - Unilateral primary osteoarthritis, right knee (ICD-10) Irritable bowel syndrome ?K58.9 - Irritable bowel syndrome without diarrhea (ICD-10) Physical deconditioning ?R53.81 - Other malaise (ICD-10) Chronic diarrhea ?K52.9 - Noninfective gastroenteritis and colitis, unspecified (ICD-10) Anxiety ?F41.9 - Anxiety disorder, unspecified (ICD-10) History of prediabetes ?Z87.898 - Personal history of other specified conditions (ICD-10) History of major depression ?Z86.59 - Personal history of other mental and behavioral disorders (ICD-10) Surgical History S/P ORIF (open reduction internal fixation) fracture (08/10/22) ?Z98.890 - Other specified postprocedural states (ICD-10) ?Z87.81 - Personal history of (healed) traumatic fracture (ICD-10) History of loop recorder (03/17/19) ?Z98.890 - Other specified postprocedural states (ICD-10) History of partial thyroidectomy (1999) ?E89.0 - Postprocedural hypothyroidism (ICD-10) History of cholecystectomy (1983) ?Z90.49 - Acquired absence of other specified parts of digestive tract (ICD- 10) History of bladder suspension procedure (2014) ?Z98.890 - Other specified postprocedural states (ICD-10) ?Z87.448 - Personal history of other diseases of urinary system (ICD-10) Family History Mother Alcoholism Social History Narrative: Nonsmoker. Does not exercise. . 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 5 adult children. She lives with her daughter who has mental disability-?Autism Highest level of school completed/degree received: Master's degree Smoking Status: Never smoker Do you use any of these nicotine containing products: None Second hand tobacco smoke exposure: No How often do you have a drink containing alcohol: never AUDIT-C Alcohol total score: 0 Non-prescribed substance use: denies use Caffeine: No service: No Exam Narrative: Exam Narrative: Overweight, well-developed patient in no acute distress. Alert and oriented x3. Answers questions appropriately. Mood and affect are appropriate. Thoughts are goal oriented and rational. No tangential or magical thinking noted. Patient speaks in full sentences without needing to catch their breath. GCS is 15. Patient is speaking and breathing without difficulty. There is no obvious significant bleeding noted. HEENT: Normocephalic atraumatic. Pupils are equally round reactive to light. Extraocular muscles are intact. Conjunctivae are moist without any icterus noted. Moist mucous membranes. Posterior pharynx is normal. No trauma noted to the inside of the mouth. Neck is soft without any lymphadenopathy or thyromegaly. No masses are appreciated. Cardiovascular: Heart is regular rate and rhythm S1 and S2 are present without any murmurs. Lungs: Clear to auscultation bilaterally no wheezes rhonchi or rales are appreciated. Patient takes deep breaths without any discomfort. No point tenderness over the chest wall. Abdomen: Soft and nontender nondistended with normal bowel sounds. No guarding or rebound. No masses or organomegaly appreciated. Extremities: Mild swelling over the olecranon on the left. She has tenderness palpation. She has mild tenderness with flexion and extension. She does have full range of motion however. Skin: Well perfused. Back: Normal appearance. Patient has no tenderness to palpation at the cervical, thoracic or lumbar spine. Patient has full range of motion at the neck with flexion, extension, side way bending and rotation without pain. Const: Vital Signs, click to edit/add: Vital Signs - 24 hr 06/25/24 09:58 Temperature 98.4 F Pulse Rate [Pulse Oximeter] 106 H Respiratory Rate 14 Blood Pressure [Ri t Upper Arm] 103/53 L Pulse Oximetry 96 Oxygen Delivery Me thod Room Air Course Course ED Course: X-rays of the ribs and elbow do not reveal any fractures. Vital Signs Vital signs: Initial Vital Signs Temperature 98.4 F 06/25/24 09:58 Temperature Source Temporal Artery Scan 06/25/24 09:58 Pulse Rate 106 H 06/25/24 09:58 Pulse Rhythm Regular 06/25/24 09:58 Respiratory Rate 14 06/25/24 09:58 Blood Pressure 103/53 L 06/25/24 09:58 Blood Pressure Mean 69 L 06/25/24 09:58 Blood Pressure Position Sitting 06/25/24 09:58 Pulse Oximetry 96 06/25/24 09:58 Oxygen Delivery Method Room Air 06/25/24 09:58 Vital Signs Temperature 98.4 F 06/25/24 09:58 Pulse Rate 106 H 06/25/24 09:58 Respiratory Rate 14 06/25/24 09:58 Blood Pressure 103/53 L 06/25/24 09:58 Pulse Oximetry 96 06/25/24 09:58 Oxygen Delivery Method Room Air 06/25/24 09:58 Temperature 98.4 F 06/25/24 09:58 Pulse Rate 106 H 06/25/24 09:58 Respiratory Rate 14 06/25/24 09:58 Blood Pressure 103/53 L 06/25/24 09:58 Pulse Oximetry 96 06/25/24 09:58 Oxygen Delivery Method Room Air 06/25/24 09:58 Medical Decision Making MDM Narrative Medical decision making narrative: 69-year-old female status post fall. No evidence of fractures on imaging. I do not think she has a fracture of the elbow on physical examination, I do think she has a contusion there we discussed symptomatic treatment. She can certainly follow up if she feels that her arms not getting better over the next several days. Imaging Data Rib x-ray: Attestation: I have reviewed the pertinent imaging results. Radiologist's impression: FALL ON LEFT SIDE, ADDISONS DISEASE Technique: Frontal view of the chest and frontal and oblique views of the left ribs Comparison: Chest radiograph from August 09, 2022 and February 27, 2017 Findings/Impression: No acute, displaced fracture or malalignment. No suspicious osseous lesions. The soft tissues are without acute abnormality. Stable cardiac loop recorder in the left anterior chest. The cardiomediastinal silhouette and pulmonary vasculature are unremarkable. There is no focal airspace consolidation, pleural effusion, or pneumothorax. Nonobstructive bowel gas pattern. Elbow x-ray: Attestation: I have reviewed the pertinent imaging results. Radiologist's impression: INDICATION: Fall. COMPARISON: None available. TECHNIQUE: Views: 3 FINDINGS: Mineralization: Normal. Alignment: Normal. Bones and Joints: No fracture is identified. Soft Tissues: Mild posterior periarticular soft tissue swelling overlying the olecranon as demonstrated on the lateral view. No joint effusion. IMPRESSION: Mild posterior periarticular soft tissue swelling overlying the olecranon as demonstrated on the lateral view. No joint effusion. No fracture is identified. Discharge Plan Discharge Clinical Impression: Fall Patient Disposition: Home, Self-Care Condition: Stable Instructions: Fall Prevention for Older Adults (ED), Fall Prevention (ED) Additional Instructions: Okay to use Tylenol as needed/as directed for discomfort. Okay to ice areas that are sore, do not apply ice directly to the skin and do not ice for more than 20 minutes at a time, 3 times per day. Prescriptions: No Action montelukast 10 mg tablet 10 mg PO HS loperamide 2 mg capsule 4 mg PO QID PRN meclizine 25 mg tablet 25 mg PO BID PRN divalproex 500 mg tablet,delayed release (DR/EC) 500 mg PO BID doxepin 10 mg capsule 10 mg PO DAILY dextroamphetamine-amphetamine 10 mg capsule,extended release 24hr 1 cap PO DAILY hydrocortisone 5 mg tablet 5 mg PO guanfacine 1 mg tablet 1 mg PO QPM famotidine 40 mg tablet 40 mg PO QPM fluticasone propion-salmeterol 500-50 mcg/dose blister with device 1 inh inhalation Patient Comments: [NO ORIGINAL SIG] omeprazole 40 mg capsule,delayed release(DR/EC) 40 mg PO Q1D albuterol sulfate 90 mcg/actuation HFA aerosol inhaler 1 puff INHALATION Q4H PRN Patient Comments: PLEASE SEE ATTACHED FOR DETAILED DIRECTIONS lorazepam 0.5 mg tablet 0.5 mg PO DAILY PRN cevimeline 30 mg capsule 1 cap PO BID Patient Comments: can use 1 cap at noon prn venlafaxine 150 mg capsule,extended release 24hr 300 mg PO DAILY dicyclomine 10 mg capsule 10 mg PO Q6H PRN (Reason: cramps) ondansetron HCl 8 mg tablet 8 mg PO TID PRN midodrine 5 mg Tablet 5 mg PO BID Qty: 60 0RF fludrocortisone 0.1 mg Tablet 0.1 mg PO DAILY Qty: 30 0RF diphenoxylate-atropine [Lomotil] 2.5-0.025 mg tablet 1 tab PO DAILY Qty: 10 0RF Follow Up/Referrals: Angi Estevez DO [Primary Care Provider] - Stand Alone Forms: [facility] Info Instructions
== END 2024-06-25 11:55 | disposition home or self-care (01) ==
PROVIDERS: Emergency Provider Family Medicine; PCP Family Medicine
DX: S20.212A Contusion of left front wall of thorax, initial encounter (principal); S50.02XA Contusion of left elbow, initial encounter; W19.XXXA Unspecified fall, initial encounter
CPT/HCPCS: 71101; 73080; 99283; 99284

== ENCOUNTER 2024-07-26 12:15 | Outpatient (CLI) | payer OTHER, SELFPAY | END 2024-07-26 12:16 | disposition home or self-care (01) | LOC: AMB 07-28 09:39 | PROVIDERS: PCP Family Medicine; Visit Provider Family Medicine | DX: R50.9 Fever, unspecified (principal); R11.10 Vomiting, unspecified; R53.1 Weakness | CPT/HCPCS: A0425; A0427 ==

== ENCOUNTER 2024-07-26 12:45 | Emergency (ER) | payer OTHER, SELFPAY ==
[2024-07-26] VITALS (13 sets, daily range): BP systolic 99–132; BP diastolic 41–84; PULSE 80–88; RESP 12–27; TEMP 35.7; O2SAT 91–96; BMI 32.9
--- OUTSIDE RECORDS SUMMARY | 2024-07-26 12:47 | XMS_ITS | Encounter Summary ---
Author Organization [facility] Address [address] [place] [address] Care Team Providers Care Licensed Mental Health Counselor Name Role Phone Gaby Fleming MD Primary Care Provider [phone] Encounter Details Date Type Department Care Team (Latest Contact Info) Description 10/17/1996 Orders Only Rosetta Gramajo MD [address] [place] [address] Social History Tobacco Use Types Packs/Day Years [...] on filedocumented in this encounter Care Teams Licensed Mental Health Counselor Relationship Specialty Start Date End Date Gaby Fleming MD [address] [place] [address] PCP - General 01/29/06 documented as of this encounter
--- OUTSIDE RECORDS SUMMARY | 2024-07-26 12:47 | XMS_ITS | Encounter Summary ---
Author Organization [facility] Address [address] [place] [address] Care Team Providers Care Data Clerk Name Role Phone Gaby Fleming MD Primary Care Provider [phone] Encounter Details Date Type Department Care Team [...] on filedocumented in this encounter Care Teams Data Clerk Relationship Specialty Start Date End Date Gaby Felming MD [address] [place] [address] PCP - General 01/29/06 documented as of this encounter
--- OUTSIDE RECORDS SUMMARY | 2024-07-26 12:47 | XMS_ITS | Encounter Summary ---
Author Organization [facility] Address [address] [place] [address] Care Team Providers Care Heavy Duty Truck Mechanic Name Role Phone Gaby Fleming MD Primary Care Provider [phone] Encounter Details Date Type Department Care Team [...] on filedocumented in this encounter Care Teams Heavy Duty Truck Mechanic Relationship Specialty Start Date End Date Gaby Fleming MD [address] [place] [address] PCP - General 01/29/06 documented as of this encounter
--- OUTSIDE RECORDS SUMMARY | 2024-07-26 12:47 | XMS_ITS | Encounter Summary ---
Author Organization [facility] Address [address] [address] Care Team Providers Care Customer Service Consultant Name Role Phone Gaby Fleming MD Primary Care Provider [phone] Encounter Details Date Type Department Care Team (Late st Contact Info) Description 02/22/2014 Scanned History External to External, [place] [address] [facility] Social History Tobacco Use Types Packs/Day Years [...] filedocumented in this encounter Care Teams Customer Service Consultant Relationship Specialty Start Date End Date Gaby Fleming MD [address] [place] [address] PCP - General 01/29/06 documented as of this encounter
--- OUTSIDE RECORDS SUMMARY | 2024-07-26 12:47 | XMS_ITS | Encounter Summary ---
Author Organization [facility] Address [address] [place] [address] Care Team Providers Care Window And Door Installer Name Role Phone Gaby Fleming MD Primary Care Provider [phone] Encounter Details Date Type Department Care Team (Latest Contact Info) Description 06/09/2014 Consent for Procedure/Treatme nt [facility] [address] [place] [address] METHACHOLINE CHALLENGE TEST Social History Tobacco Use [...] on filedocumented in this encounter Care Teams Window And Door Installer Relationship Specialty Start Date End Date Gaby Fleming MD [address] [place] [address] PCP - General 01/29/06 documented as of this encounter
--- OUTSIDE RECORDS SUMMARY | 2024-07-26 12:47 | XMS_ITS | Encounter Summary ---
Author Organization [facility] Address [address] [place] [address] Care Team Providers Care Sales Representative Livestock Name Role Phone Gaby Fleming MD Primary Care Provider [phone] Encounter Details Date Type Department Care Team (Latest Contact Info) Description 01/05/1998 Orders Only Arielle Caraballo, DO [address] [place] [address] Social History Tobacco Use Types Packs/Day Years [...] on filedocumented in this encounter Care Teams Sales Representative Livestock Relationship Specialty Start Date End Date Gaby Fleming MD [address] [place] [address] PCP - General 01/29/06 documented as of this encounter
--- OUTSIDE RECORDS SUMMARY | 2024-07-26 12:47 | XMS_ITS | Encounter Summary ---
Author Organization [facility] Address [address] [place] [address] Care Team Providers Care Harvest Worker Name Role Phone Gaby Fleming MD Primary Care Provider [phone] Encounter Details Date Type Department Care Team (Latest Contact Info) Description 05/25/1998 Orders Only Karan Garcia MD [address] [place] [address] Social History Tobacco Use Types Packs/Day Years [...] on filedocumented in this encounter Care Teams Harvest Worker Relationship Specialty Start Date End Date Gaby Fleming MD [address] [place] [address] PCP - General 01/29/06 documented as of this encounter
--- OUTSIDE RECORDS SUMMARY | 2024-07-26 12:47 | XMS_ITS | Encounter Summary ---
[facility] Address [address] [place] [address] Care Team Providers Care Supervisor [place]ond Name Role Phone Gaby Fleming MD Primary Care Provider [phone] Encounter Details Date Type Department Care Team (Late st Contact Info) Description 05/19/2014 Scanned History [facility] Psychiatry [address] [place] [address] Jaycob Ayala MD [facility]DISCHAR[facility] PAPERWORK Social History [...] filedocumented in this encounter Care Teams Supervisor [place] Relationship Specialty Start Date End Date Gaby Fleming MD [address] [place] [address] PCP - General 01/29/06 documented as of this encounter
--- OUTSIDE RECORDS SUMMARY | 2024-07-26 12:47 | XMS_ITS | Encounter Summary ---
Author Organization [facility] Address [address] [place] [address] Care Team Providers Care Agency Sales Representative Name Role Phone Gaby Fleming MD Primary Care Provider [phone] Encounter Details Date Type Department Care Team (Latest Contact Info) Description 06/30/1997 Orders Only Arielle Caraballo, DO [address] [place] [address] Social History Tobacco Use Types Packs/Day Years [...] on filedocumented in this encounter Care Teams Agency Sales Representative Relationship Specialty Start Date End Date Gaby Fleming MD [address] [place] [address] PCP - General 01/29/06 documented as of this encounter
--- OUTSIDE RECORDS SUMMARY | 2024-07-26 12:47 | XMS_ITS | Encounter Summary ---
Author Organization [facility] Address [address] [address] Care Team Providers Care Workforce Analyst Name Role Phone Gaby Fleming MD Primary Care Provider [phone] Encounter Details Date Type Department Care Team (Late st Contact Info) Description 03/11/2014 Correspondence None No Primary/Referring, Phy EQUIPMENT FINAL RAIL CUTTER TICKET Social History Tobacco Use Types Packs/Day [...] on filedocumented in this encounter Care Teams Workforce Analyst Relationship Specialty Start Date End Date Gaby Fleming MD [address] [place] [address] PCP - General 01/29/06 documented as of this encounter
--- OUTSIDE RECORDS SUMMARY | 2024-07-26 12:47 | XMS_ITS | Encounter Summary ---
Author Organization [facility] Address [address] [place] [address] Care Team Providers Care Experimental Mechanic Spacecraft Name Role Phone Gaby Fleming MD Primary Care Provider [phone] Encounter Details Date Type Department Care Team (Latest Contact Info) Description 06/06/1995 Orders [place] [address] Social History Tobacco Use Types Packs/Day Years [...] on filedocumented in this encounter Care Teams Experimental Mechanic Spacecraft Relationship Specialty Start Date End Date Gaby Fleming MD [address] [place] [address] PCP - General 01/29/06 documented as of this encounter
--- OUTSIDE RECORDS SUMMARY | 2024-07-26 12:47 | XMS_ITS | Encounter Summary ---
Author Organization [facility] Address [address] [place] [address] Care Team Providers Care Schedule Checker Name Role Phone Gaby Fleming MD Primary Care Provider [phone] Encounter Details Date Type Department Care Team (Late st Contact Info) Description 05/13/2014 Emergency Room External to [facility], Provider EAR PAIN Social History [...] on filedocumented in this encounter Care Teams Schedule Checker Relationship Specialty Start Date End Date Gaby Fleming MD [address] [place] [address] PCP - General 01/29/06 documented as of this encounter
--- OUTSIDE RECORDS SUMMARY | 2024-07-26 12:47 | XMS_ITS | Encounter Summary ---
[facility] Address [address] [address] Care Team Providers Care Air Conditioning Unit Assembler Name Role Phone Gaby Fleming MD Primary Care Provider [phone] Encounter Details Date Type Department Care Team [...] on filedocumented in this encounter Care Teams Air Conditioning Unit Assembler Relationship Specialty Start Date End Date Gaby Fleming MD [address] [place] [address] PCP - General 01/29/06 documented as of this encounter
--- OUTSIDE RECORDS SUMMARY | 2024-07-26 12:47 | XMS_ITS | Encounter Summary ---
Author [facility] Address [address] [place] [address] Care Team Providers Care Spot Checker Name Role Phone Gaby Fleming MD Primary Care Provider [phone] Encounter Details Date Type Department Care Team [...] on filedocumented in this encounter Care Teams Spot Checker Relationship Specialty Start Date End Date Gaby Fleming MD [address] [place] [address] PCP - General 01/29/06 documented as of this encounter
--- OUTSIDE RECORDS SUMMARY | 2024-07-26 12:47 | XMS_ITS | Encounter Summary ---
[facility] Address [address] [place] [address] Care Team Providers Care Group Managing Director Name Role Phone Gaby Fleming MD Primary Care Provider [phone] Encounter Details Date Type Department Care Team [...] on filedocumented in this encounter Care Teams Group Managing Director Relationship Specialty Start Date End Date Gaby Fleming MD [address] [place] [address] PCP - General 01/29/06 documented as of this encounter
--- OUTSIDE RECORDS SUMMARY | 2024-07-26 12:47 | XMS_ITS | Encounter Summary ---
Author Organization [facility] Address [address] [place] [address] Care Team Providers Care Medical Secretary Receptionist Name Role Phone None Reported, Pcp Primary Care Provider Unavail able Reason for Referral * Outpatient (Routine) - Closed Specialty Diagnoses / Procedures Referred By Horacio marino Referred To Contact Neurology Diagnoses Demyelinating Disease Central Nervous System (HCC) Gagan Vera M.D. Phone: tel: fax: [facility] Referral ID Status Reason Start Date Expiration Date Visits Re quested Visits Authorized [id number] Closed 07/30/2018 07/30/2019 1 1 Encounter Details Date Type Department Care Team (Latest Contact Info) Description 07/30/2018 [facility] [address] [place] [address] Gagan Vera M.D. [address] [place] [address] Demyelinating Disease Central Nervous System (HCC) (Primary Dx) Social History Tobacco Use Types Packs/Day Years Used Date Smoking Tobacco: Never Assessed Comments Unknown Sex and Gender Information Value Date Recorded Sex Assigned at Female 01/02/2021 11:08 AM CDT Legal Sex Female 10:48 AM CDT Gender Identity Female 03/11/2019 12:39 PM OUTSIDE CUTTER Sexual Orientation Straight 03/11/2019 12 :39 PM OUTSIDE CUTTER documented as of this encounter Plan of [...] Pending 04/12/2021 04/12/2021 04/13/2021 6 :18 PM OUTSIDE CUTTER documented as of this encounter Care Teams Medical Secretary Receptionist Relationship Specialty Start Date End Date None Reported, Pcp PCP - General Family Medicine 01/26/24 documented as of this encounter
--- OUTSIDE RECORDS SUMMARY | 2024-07-26 12:48 | XMS_ITS | CCD ---
Author Organization Unknown Care Team Providers Care Biological Science Technician Fish Name Role Phone Wash Plant Operator, [place] Primary Care Provider Unava ilable Unavailable Chronic Care Management Unavaila ble Summary Purpose DataExchange Insurance Providers Payer name Policy type / Coverage type Covered alliance party ID Effective Begin Date Effective End Date [facility] Commercial Insurance [id number] Unknown Unkn own Family History Family History data not found Medication Administered No Medication Administered data Reason For Visit No Reason For Visit data
--- OUTSIDE RECORDS SUMMARY | 2024-07-26 12:48 | XMS_ITS | Encounter Summary ---
Author Organization [facility] Address [address] [place] [address] Care Team Providers Care Sales Project Manager Name Role Phone Gaby Fleming MD Primary Care Provider [phone] Encounter Details Date Type Department Care Team (Late st Contact Info) Description 07/12/2014 [facility] [address] [place] [address]. [place], [place] [phone] Carlos Barrow MD [address] [place], [place] [phone] UROGYNECOLOGY QUESTIONNAIRE Social History Tobacco Use Types [...] filedocumented in this encounter Care Teams Sales Project Manager Relationship Specialty Start Date End Date Gaby Fleming MD [address] [place] [address] PCP - General 01/29/06 documented as of this encounter
--- OUTSIDE RECORDS SUMMARY | 2024-07-26 12:48 | XMS_ITS | Encounter Summary ---
Author Organization [facility] Address [address] [place] [address] Care Team Providers Care Pattern Scratcher Name Role Phone Gaby Fleming MD Primary Care Provider [phone] Encounter Details Date Type Department Care Team (Late st Contact Info) Description 02/02/2016 Refill Order [facility] [address] [place] [id number] [place] [address] [place] [address] Social History Tobacco Use Types Packs/Day [...] Results * Hemoglobin, Blood (02/12/2016 2:43 PM SHIRT FOLDER) Hemoglobin 12.7 12.0 - 16.0 g/dl [facility] 02/12/2016 2:43 PM SHIRT FOLDER 02/12/2016 2:45 PM SHIRT FOLDER Narrative [facility] - 02/12/2016 6:50 PM SHIRT FOLDER Performed at [facility], [address] [place] [address] [place] Gaby Fleming MD LAB_1 Final Resul t [facility] [phone] documented in this encounter Visit Diagnoses Diagnosis Encounter for long-term (current) use of medications- Primary Encounter for long-term (current) use of other medications Acute gout of left knee, unspecified cause- Primary Encounter for long-term (current) use of medications Encounter for long-term (current) use of other medications documented in this encounter Care Teams Pattern Scratcher Relationship Specialty Start Date End Date Gaby Fleming MD [address] [place] [address] PCP - General 01/29/06 documented as of this encounter
--- OUTSIDE RECORDS SUMMARY | 2024-07-26 12:48 | XMS_ITS ---
Author Organization [facility] Care Team Providers Care Leather Grainer Name Role Phone Melissa Chacko Unavailable Unavailable Lucila Herring Unavailable Unavailable Andrey Romano Unavailable Unavailable Allergies and adverse reactions Code CodeSystem Substance Reaction Severity StartDate Concern Status 265585872 SNOMED CT Sulfa Antibiotics Mild 08/14/2022 active SULFA Unknown 08/14/2022 active 7454 RXNORM Nitrofurantoin Unknown 08/14/2022 active IVP Dye Unknown 08/14/2022 active 5973 RXNORM Ioxaglate Unknown 08/14/2022 active Hand Site Administrator Anaphylaxis (code- 03719748, SNOMED CT) Severe 08/14/2022 active Contrast Moderate 08/14/2022 active Care Team Name Role Address Phone Organization Dates Andrey Romano PCP [facility] [address] [place] [address], [address], [place], [address], [place] (Office): [facility] 08/14/2022 - 09/05/2022 Melissa Chacko Attending Physician [facility] 08/14/2022 - 09/05/2022 Lucila Herring Attending Physician [address], [place], [address], [place] States (Office): : [facility] 08/14/2022 - 09/05/2022 Immunizations Immunization Status Vaccine [...] completed tuberculin skin test; unspecified formulation lotNumber: [id number] expiry: 09/05/2024 Mfg: [employer] Given 0.1 ml Right Forearm intradermally Step 2 of Multi-step with next step required 98 CVX created date: 08/28/2022 consent date: 08/28/2022 administer ed date: 08/28/2022 Educated by Mary Dennis RN on 08/28/2022 TB 2 Step Mantoux Skin Test completed tuberculin skin test; unspecified formulation lotNumber: [id number] expiry: 09/05/2024 Mfg: [employer] Given [...] date: 08/14/2022 administer ed date: 02/07/2012 PCV13, [id number] completed Pneumococcal conjugate vaccine 20-valent (PCV20), polysaccharide [id number] conjugate, adjuvant, preservative free 216 CVX created [...] free, 30 mcg/0.3mL dose, holli-sucrose formulation Mfg: Siri 217 CVX created date: 08/14/2022 administer ed date: 05/09/2020 COVID-19 Vaccine dose 3 completed unknown vaccine or immune globulin Mfg: Siri 999 CVX created date: 08/14/2022 administer ed date: 01/01/2021 COVID-19 Vaccine dose 4 completed SARS-COV-2 (COVID-19) vaccine, mRNA, spike protein, LNP, preservative free, 30 mcg/0.3mL dose 208 CVX created date: 08/14/2022 administer ed date: 09/15/2021 COVID-19 Vaccine dose 5 completed SARS-COV-2 (COVID-19) vaccine, mRNA, spike protein, LNP, preservative free, 30 mcg/0.3mL dose Mfg: Siri 208 CVX created date: 08/14/2022 administer ed [...] AGE-RELATED OSTEOPOROSIS WITHOUT CURRENT PATHOLOGICAL FRACTURE 08/14/[address] active 2 ANEMIA, UNSPECIFIED 08/14/[address] active 3 ANXIETY DISORDER, UNSPECIFIED 08/14/[address] active 4 BORDERLINE PERSONALITY DISORDER 08/14/2022200059145996 SNOMED CT active 5 CONVERSION DISORDER WITH MIXED SYMPTOM PRESENTATION 08/14/[address] active 6 DEPENDENCE ON OTHER ENABLING MACHINES AND DEVICES 08/14/[address] active 7 FRACTURE OF UNSPECIFIED PART OF NECK OF RIGHT FEMUR, SUBSEQUENT ENCOUNTER FOR CLOSED FRACTURE WITH ROUTINE HEALING 08/14/[address] active 8 GASTRO-ESOPHAGEAL REFLUX DISEASE WITHOUT ESOPHAGITIS 08/14/[address] active 9 IRRITABLE BOWEL SYNDROME, UNSPECIFIED 08/14/[address] active 10 CUSTODIAL (CURRENT) USE OF ANTICOAGULANTS 08/14/[address] active 11 MAJOR DEPRESSIVE DISORDER, RECURRENT SEVERE WITHOUT PSYCHOTIC FEATURES 08/14/[address] active 12 NONINFECTIVE GASTROENTERITIS AND COLITIS, UNSPECIFIED 08/14/[address] active 13 OBESITY, UNSPECIFIED 08/14/[address] active 14 OBSTRUCTIVE SLEEP APNEA (ADULT) (PEDIATRIC) 08/14/[address] active 15 ORTHOSTATIC HYPOTENSION 08/14/[address] active 16 PERSONAL HISTORY OF OTHER MENTAL AND BEHAVIORAL DISORDERS 08/14/[address] active 17 POST-TRAUMATIC STRESS DISORDER, UNSPECIFIED 08/14/[address] active 18 UNSPECIFIED ASTHMA, UNCOMPLICATED 08/14/[address] active Reason for Referral No Reasons for Referral Entered Social History Social History Observation Description Start Date End Date Code Code System Current Smoking Status Tobacco smoking consumption unknown 785521674 SNOMED CT Sex Assigned At Female 1955 25909-2 [facility] Vital Signs Code Code System Vitals Name Values and Units Timing Information 55835-4 [facility] Pain Level Value=4.0 09/05/2022 36273-0 [facility] O2 % BldC Oximetry Value=96.0 Units= % 09/04/2022 8310-5 [facility] Body Temperature Value=97.7 Units= F 09/04/2022 9279-1 [facility] Respiratory Rate Value=18.0 Units=/m in 09/04/2022 8462-4 [facility] Blood Pressure-Diastolic Value=65 Un its=mmHg 09/04/2022 8480-6 [facility] Blood Pressure-Systolic Odtpb=513 Un its=mmHg 09/04/2022 8867-4 [facility] Heart rate Znbhl=124.0 Units=/min 09/04/2022 84587-3 [facility] Weight Oepot=303.0 Units=Lbs 07/2022 8302-2 [facility] Height Value=62.0 Units=Inches 08/14/2022
--- OUTSIDE RECORDS SUMMARY | 2024-07-26 12:48 | XMS_ITS | Encounter Summary ---
Author Organization [facility] Address [address] [place] [address] Care Team Providers Care Brake Holder Name Role Phone Gaby Fleming MD Primary Care Provider [phone] Encounter Details Date Type Department Care Team [...] on filedocumented in this encounter Care Teams Brake Holder Relationship Specialty Start Date End Date Gaby Fleming MD [address] [place] [address] PCP - General 01/29/06 documented as of this encounter
--- OUTSIDE RECORDS SUMMARY | 2024-07-26 12:48 | XMS_ITS | Encounter Summary ---
Author Organization [facility] Address [address] [place] [address] Care Team Providers Care Roll Handler Name Role Phone Gaby Fleming MD Primary Care Provider [phone] Encounter Details Date Type Department Care Team (Late st Contact Info) Description 02/11/2013 Correspondence None No Primary/Referring, [facility] HEALTH PROVIDER SCREENING FORM Social History Tobacco [...] this encounter Progress Notes * No Primary/Referring, [facility] - 02/11/2013 12:00 AM CST O REGULATOR INSPECTOR documented in this encounter Plan of Treatment Not on file documented as of this encounter Visit Diagnoses Not on filedocumented in this encounter Care Teams Roll Handler Relationship Specialty Start Date End Date Gaby Fleming MD [address] [place] [address] PCP - General 01/29/06 documented as of this encounter
--- OUTSIDE RECORDS SUMMARY | 2024-07-26 12:48 | XMS_ITS | Encounter Summary ---
Author Organization [facility] Address [address] [place] [address] Care Team Providers Care Shrimp Trawler Name Role Phone Gaby Fleming MD Primary Care Provider [phone] Encounter Details Date Type Department Care Team (Latest Contact Info) Description 07/14/2014 Consent for Procedure[facility]me [facility] [address] [place] [address] INFORMED CONSENT URODYNAMIC TESTING Social History Tobacco [...] on filedocumented in this encounter Care Teams Shrimp Trawler Relationship Specialty Start Date End Date Gaby Fleming MD [address] [place] [address] PCP - General 01/29/06 documented as of this encounter
--- OUTSIDE RECORDS SUMMARY | 2024-07-26 12:48 | XMS_ITS | Clinical Summary ---
Author Organization [facility] Address [address] [place] [address] Care Team Providers Care Joiner Helper Name Role Phone None Reported, Pcp Primary Care Provider Unavail able Source Comments Patient records contain information from all sites at [facility]. For routine questions regarding patient records, call [phone] during business hours, M-F 8:00 AM - 5:00 PM Central Time. Record requests for emergency care only can be directed to [phone] at any time.[facility] Allergies Active Allergy Reactions Criticality Noted Date [...] bedtime. 05/20/19 21 Active miscellaneous medical supply [facility] CPAP machine for home use at pressure [...] Unsteadiness Gait Disorder Non Orthopedic Movement Disorder Encounters Date Type Department Care Team Description 07/22/2024 Refill Division of Endocrinology in [place], [place] [address] [place] [address] Ronna Tang M.D. Med Refill from Last 3 Months Immunizations Immunization Administration Dates Next Due SARS-COV-2 (COVID-19) - MODE RNA (12 YEARS AND OLDER) Fall Seasonal 01/26/2024 SARS-COV-2 (COVID-19) - PFIZ ER (Discontinued)(12 years or older) 05/09/2020,04/18/2020 Family History Medical History Relation Name Comments Alcohol abuse Brother Ed Learning disorder Daughter 1 Amy FAS Learning disorder Daughter 2 Jayne Autism Psychiatric Father scrooge Other cancer Maternal Grandmother Roxanna Montes De Oca Stroke Maternal Grandmother Roxanna [...] Brother Otoniel Montes De Oca Alive Sister Warren Alive Son 1 que Alive Son 2 [place] Alive Social History Tobacco Use Types Packs/Day Years Used Date Smoking Tobacco: Never Passive Smoke Exposure: Never Smokeless Tobacco: Never Tobacco Cessation:Counseling Given: Not Answered Alcohol Use Standard Drinks/Week Comments Never 0 (1 standard drink = 0.6 oz pur e alcohol) [facility] Utilities Answer Date Recorded In the past 12 months has e [employer], gas, oil, or water [employer] threatened to shut off services in your [...] 12/23/2021 How often do you attend chur ch or jainism services? More than 4 times per year 12/23/2021 Do you belong to any clubs o r organizations such as jain groups, unions, fraternal or athletic groups, or [...] Answer Date Recorded PHQ-2 Score 2 01/21/2024 [facility] [place] [facility] Occupat ional [facility] - Occupational Stress [...] your living situation today? I have a [facility] place to live 03/11/2024 Education Answer Date Recorded What is the highest level of school you have completed or the highest degree you have received? Master's degree (e.g., MA, MS, Tc, MEd, WIRE SPIRAL BINDER, [employer]) 09/07/2018 Comments Unknown Sex and Gender Information Value Date Recorded Sex Assigned at Female 01/02/2021 11:08 AM CDT Legal Sex Female 10:48 AM CDT Gender Identity Female 03/11/2019 12:39 PM METAL BED ASSEMBLER Sexual Orientation Straight 03/11/2019 12 :39 PM METAL BED ASSEMBLER Last Filed Vital Signs Vital Sign Reading Time Taken Comments Blood Pressure 118/58 03/16/2024 10:38 AM METAL BED ASSEMBLER Pulse 93 03/16/2024 10:38 AM METAL BED ASSEMBLER Temperature 36.6 C (97.9 F) 01/08/2021 11:04 AM CDT Respiratory Rate - - Oxygen Saturation - - Inhaled Oxygen Concentration - - Weight 91.7 kg (202 lb 2.6 oz) 03/16/2024 10:38 AM METAL BED ASSEMBLER Height 160 cm (5' 2.99) 03/16/2024 10:38 AM METAL BED ASSEMBLER Body Mass Index 35.82 03/16/2024 10:38 AM METAL BED ASSEMBLER Plan of Treatment Health Maintenance Due Date [...] this topic Medical Devices Implanted Type Area Forestry Fire Aide Device Identifier Shelf Expiration Date Model / Serial / Lot Hardware E.G. Pins/Screws/Ld s-03/31/2022 Implanted:03/31 (Quantity not on file) Hardware e.g. pins/screws/ro ds Right: Hip Description:Pins and Screws - Implantable Loop Recorder-2018 Implanted:03/17 (Quantity not on file) Implantable Loop Recorder Left: Chest Medtronic [id number] / [id number] / Insurance [facility] Care Teams Joiner Helper Relationship Specialty Start Date End Date None Reported, Pcp PCP - General Family Medicine 01/26/24
--- OUTSIDE RECORDS SUMMARY | 2024-07-26 12:48 | XMS_ITS | Clinical Summary ---
Author Organization [facility] Address [address] [place] [address]. [place] [address] Care Team Providers Care Ground Support Equipment Assembler Name Role Phone No Ref-Primary, Physician Primary [...] on file Legal Sex Female 3:05 AM BOBBIN COLLECTOR Gender Identity Not on file Sexual Orientation Not on file Last Filed Vital Signs Vital Sign Reading Time Taken Comments Blood Pressure 136/55 06/16/2017 12:08 PM CDT Pulse 85 03/16/2016 8:18 PM BOBBIN COLLECTOR Temperature 36.7 C (98 F) 06/16/2017 12:08 [...] Advance Directives For more information, please contact: [phone] * Full Code (Latest Code Status on File) Date Activated Date Inactivated Comments 06/29/2014 3:33 PM 06/30/2014 12:26 PM * Full Code Date Activated Date Inactivated Comments 10/17/2013 3:44 PM 06/29/2014 3:33 PM * Full Code Date Activated Date Inactivated Comments 10/16/2013 2:27 PM 10/17/2013 3:44 PM Care Teams Ground Support Equipment Assembler Relationship Specialty Start Date End Date No Ref-Primary, Physician PCP - General 06/16/17
--- OUTSIDE RECORDS SUMMARY | 2024-07-26 12:48 | XMS_ITS | Encounter Summary ---
Author Organization [facility]ending sale to [facility] Address [address] [place] [address] Care Team Providers Care Clip On Sunglasses Inspector Name Role Phone Gaby Fleming MD Primary Care Provider [phone] Encounter Details Date Type Department Care Team (Late st Contact Info) Description 12/14/2015 Correspondence External to External, [place] [address] 2015 HEALTH PROVIDER SCREENING FORM Social History [...] on filedocumented in this encounter Care Teams Clip On Sunglasses Inspector Relationship Specialty Start Date End Date Gaby Fleming MD [address] [place] [address] PCP - General 01/29/06 documented as of this encounter
--- OUTSIDE RECORDS SUMMARY | 2024-07-26 12:48 | XMS_ITS | Encounter Summary ---
Author Organization [facility] Address [address] [place] [address] Care Team Providers Care Operator Vacuum Name Role Phone Gaby Fleming MD Primary Care Provider [phone] Encounter Details Date Type Department Care Team [...] on filedocumented in this encounter Care Teams Operator Vacuum Relationship Specialty Start Date End Date Gaby Fleming MD [address] [place] [address] PCP - General 01/29/06 documented as of this encounter
--- OUTSIDE RECORDS SUMMARY | 2024-07-26 12:48 | XMS_ITS | Clinical Summary ---
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 180 Capsule 3 09/10/19 Active durable medical equipment (DME)Indications [...] mouth every 6 hours if needed (abdominal cramping/diarrh ea). 90 Capsule 2 02/27/20 Active hydrocortisone (CORTEF) 5 mg tablet Take [...] MOUTH AT BEDTIME 90 Tablet 3 09/18/19 Active traZODone (DESYREL) 150 mg tabletIndication s:insomnia [...] IN 24HRS 48 Capsule 10/21/19 24 Active metoprolol succinate 25 mg Sustained-Releas e tabletIndication s:Sinus tachycardia TAKE 1 TABLET BY MOUTH EVERY DAY 90 Tablet 06/26/19 25 Active omeprazole 40 mg Delayed-Release capsuleIndicatio ns:Gastroesophag eal reflux disease without esophagitis Take 1 Capsule (40 mg) by mouth once daily before a meal. 90 Capsule 3 07/01/19 25 Active durable medical equipment (DME)Indications :Postural dizziness with near syncope,Tachycar jason One pair of compression stockings, knee high 1 Each 07/08/19 25 Active calcium carbonate-vitami n D3 (600 mg-400 unit) 600 mg-10 mcg (400 unit) tabletIndication s:Age-related osteoporosis with current pathological fracture with delayed healing Take 1 Tablet by mouth two times daily with meals. 200 Tablet 4 07/08/19 25 Active fludrocortisone (FLORINEF) 0.1 mg tabletIndication s:[place]'s disease (HC) Take 1 Tablet (0.1 mg) by mouth once daily. 90 Tablet 3 09/10/19 23 025 Discontin ued(*Med complete/ Regimen complete/ Level of care change) omeprazole (PRILOSEC) 40 mg Delayed-Release capsuleIndicatio ns:Gastroesophag eal reflux disease without esophagitis Take 1 tablet by mouth every other day. 45 Capsule 3 11/10/19 24 025 Discontin ued(Reord er (E-cancel not sent)) Hospital, Clinic, or Other Facility Administered Medication Ordered Dose Route Frequency Start Date End Date Status EPINEPHrine (EPIPEN) injection 0.6 mgIndications:Anaphylaxi s, sequela 0.6 mg IM ONE TIME PRN 09/14/2020 Active zoledronic acid in mannitol & water (RECLAST) 5 mg/100 mL pgbk 100 mLIndications:Age-relate d osteoporosis with current pathological fracture with delayed healing 100 mL IV ONE TIME 07/27/2024 07/27/2024 Active zoledronic acid in mannitol & water (RECLAST) 5 mg/100 mL pgbk 100 mLIndications:Age-relate d osteoporosis with current pathological fracture with delayed healing 100 mL IV ONE TIME 07/08/2024 07/08/2024 Ended Active Problems Problem Noted Date Diagnosed Date Age-related osteoporosis wit h current pathological fracture with delayed healing 03/19/2023 History of repair of hiatal hernia 02/11/2022 KIRSTIN on CPAP 01/23/2022 S/P laparoscopic fundoplication 01/23/2022 Class 1 obesity without seri ous comorbidity with body mass index (BMI) of 32.0 to 32.9 in adult 11/24/2021 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 Formerly known as conversion disorder. 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 Ronna Tang ([facility]) Pap smear for cervical cancer screening 04/30/2022 [...] Encounters Date Type Department Care Team Description 07/21/[address] [facility] [address] [place] [address] Angi Estevez, DO Medication Management (calcium carbonate-vitamin D3 (600 mg-400 unit) 600 mg-10 mcg (400 unit) tablet/) 07/12/2024 8:00 AM CDT Ancillary Procedure [facility] [address] [place] [address] 07/12/2024 Travel 07/07/2024 11:00 AM CDT Office Visit [facility] [address] [place] [address] Angi Estevez, DO ER Follow up (Dizziness/falls, UTI) 07/07/[address] [facility] [address] [place] [address] Angi Estevez NettaDO Reclast 07/07/2024 Travel 07/05/2024 Travel 06/30/[address] [address] [place] [address] Angi Estevez Netta, Medication Management (omeprazole (PRILOSEC) 40 mg Delayed-Release capsule) 06/23/[address] [facility] [address] [place] [address] Angi Estevez DO Refill Request (Metoprolol Succinate) 06/15/2024 Nurse Triage [address] [address] Angi Estevez, Urinary Problem 05/28/2024 10:30 AM EXECUTIVE DIRECTOR Ancillary Procedure [address] [address] 05/27/2024 Travel 05/20/2024 10:30 AM EXECUTIVE DIRECTOR Office Visit [address] [address] Yony Gao MD Consult (Diarrhea 3-6 x daily, lower abdominal cramping x years, sometimes stays in bed due to abdominal pain, taking imodium & dicyclomine daily, severe heartburn x 4 months ) 05/19/2024 Travel 04/28/2024 Patient Outreach [facility] Care Management - Advanced Care Team [address] [place] [address] Ella Vargas Medication Management (CANCEL AND R/S CMR - PHARMD OUT OF OFFICE) from Last 3 Months Immunizations Immunization Administration Dates Next Due COVID-19 VACCINE SPIKEVAX (M ODERNA 50MCG/0.5ML) 12YO+ PFS 01/21/2023 COVID-19 vaccine (Pfizer-Bio NTech 30mcg/0.3mL) 12YO+ BIVALENT PF, MDV 01/18/2022 COVID-19 vaccine (Zuffle-Bio NTech 30mcg/0.3mL) 12YO+ SANTI-SUCROSE PF, MDV 09/15/2021 COVID-19 vaccine (Zuffle-Bio NTech 30mcg/0.3mL) PF, MDV 09/15/2021,01/01/2021,05/09/2020,2020 DT (Age [...] or isolated from those around you? 0 07/05/2024 Financial Resource Strain Answer Date R ecorded Difficulty of Paying Living Expenses 2 07/05/2024 Difficulty of Paying Living Expenses 1 07/05/2024 Food Insecurity Answer Date Recorded Do you worry your food will run out before you are able to buy more? 1 07/05/2024 Transportation Needs Answer Date Record ed Does lack of transportation keep you from medica l appointments? 1 07/05/2024 Does lack of transportation keep you from work, meetings or getting things that you need? 1 07/05/2024 Housing Stability Answer Date Recorded What is your housing situation today? 2 07/05/2024 Utilities Answer Date Recorded Do you have trouble paying f or utilities (for example, heat, electricity, water, phone)? 2 07/05/2024 Comments No Sex and Gender Information Value Date Recorded Sex Assigned at Female 11/19/2021 5:38 PM CDT Legal Sex Female 7:01 AM EXECUTIVE DIRECTOR Gender Identity Female 11/19/2021 5:38 PM CDT Sexual Orientation Straight 11/19/2021 5: 38 PM CDT Obstetrics History Para Term AB IAB SAB Ectopic Multiple Livin g Live Births 0 0 0 0 0 0 0 0 Last Filed Vital Signs Vital Sign Reading Time Taken Comments Blood Pressure 123/83 07/07/2024 11:14 AM CDT Pulse 104 07/07/2024 11:11 AM CDT Temperature 36.9 C (98.5 F) 09/09/2023 11:10 AM CDT Respiratory Rate 18 09/18/2023 11:04 AM CDT Oxygen Saturation 98% 07/07/2024 11:11 AM CDT Inhaled Oxygen Concentration - - Weight 91.3 kg (201 lb 3.2 oz) 07/07/2024 11:11 AM CDT Height 158.5 cm (5' 2.4) 09/18/2023 11:04 AM CD T Body Mass Index 36.33 09/18/2023 11:04 AM CDT Plan of Treatment Upcoming Encounters Date Type Department Care Team (Late st Contact Info) Description 08/11/2024 2:00 PM CDT Telemedicine [facility] [address] [facility] [address] [place] [address] Rosa Mooney MD [address] [facility] [address] [place] [address] 08/25/2024 12:55 PM CDT Office [facility] [address] [place] [address] Angi Estevez, DO [address] [place] [address] Health Maintenance Due Date Last Done Comments RSV vaccine for adults or (1 - Risk 60-74 years 1-dose series) 2017 Colonoscopy through age 75 01/08/202401/07 (Completed outside of [facility]) Mammogram for age 45-75 02/28/2024 02/28/20 23, 12/24/2021, 12/29/2020 (Completed outside of [facility]) Medicare Wellness for age 65+ 03/07/2024 03/07/2023 COVID-19 vaccine series ( season) 2024 01/26/2024, 01/21/2023, 01/18/2022, Additional history exists BMI (ht and wt on same day) for age 18+ 09/17/2024 09/18/2023, 03/07/2023, 12/26/2022, Additional history exists Depression screening for age 12+ 10/20/2024 10/21/2023, 01/21/2023, 10/19/2021, Additional history exists Influenza Vaccine (Season Ended) 2024 01/21/2023, 01/18/2022, 12/23/2020, Additional history exists Lipids for age 45-75 03/07/2028 03/07/2023, 10/19/19 22 Tetanus booster 12/27/2028 12/27/2018, 09/29, 05/15/2010, Additional history exists Tdap Completed 12/27/2018, 09/29, 05/15/2010 Zoster (shingles) series for age 50+ Completed 09/15/2021, 07/04/2021 Hepatitis C screening for ag e 18-79 Completed 10/18/2021 Pneumococcal series for age 50+ Completed , 02/07/2012 DEXA/DXA scan for age 65+ Completed 02/27/2023 Medical Devices Implanted Type Area Coat Ironer Hand Device Identifier Shelf Expiration Date Model / Serial / Lot Mesh Hiatal 7x10cm Bio-A - [id number] Implanted:Qty: 1 on 01/22/2022 by Tamir Kimbrough ra, MD at [facility] N/A: Abdomen [employer] 09/17/2024 [id number] / / [id number] Procedures Procedure Name Priority Date/Time Associated Diagnosis Comments ECHO TTE COMPLETE W CONTRAST SERGEY 07/12/2024 8:51 AM CDT Postural dizziness with near syncope Tachycardia BASIC METABOLIC PANEL Routine 07/07/2024 12:08 PM CDT Age-related osteoporosis with current pathological fracture with delayed healing VITAMIN D 25 (DEFICIENCY) Routine 07/07/2024 12:08 PM CDT Age-related osteoporosis with current pathological fracture with delayed healing CT ABDOMEN PELVIS WO Routine 05/28/2024 10:13 AM EXECUTIVE DIRECTOR Chronic diarrhea RLQ abdominal pain LIPID PANEL W REFLEX MEASURED LDL Routine 03/07/2023 10:18 AM EXECUTIVE DIRECTOR Screening cholesterol level XR DXA BONE DENSITY 2 SITES AXIAL Routine 02/27/2023 11:35 AM EXECUTIVE DIRECTOR Postmenopausal XR MAMMO PATIENCE BILAT SCREEN Routine 02/27/2023 11:12 AM EXECUTIVE DIRECTOR Visit for screening mammogram ANTI HCV Routine 10/18/2021 12:14 PM CDT Need for hepatitis C screening test from Last 3 Months or Most Recently Relevant to Health Maintenance Results * ECHO TTE COMPLETE W CONTRAST (07/12/2024 8:51 AM CDT) AORTIC VALVE MEAN PG 4 mmHg EJECTION FRACTION 65 % LVEDD 3.7 cm EJECTION FRACTION 60 - 65% Anatomical Region Laterality Modality Ultrasound 07/12/2024 8:05 AM CDT Narrative 07/12/2024 9:06 AM CDT ECHOCARDIOGRAM SOPHIE CASTRO : 1955 69 years Study Date: 07/12/2024 8:05:10 AM Gender: F BP: 124/58 mmHg Height: 157.00 cm BSA: 1.91 m Weight: 91.00 kg Tech: JOSE C Referring MD: ANGI ESTEEVZ Site: [facility] Reading Location: MOBILE-OP Patient Location: Outpatient. Procedure: 2D w/ Contrast, Color Doppler and Spectral Doppler. Indication for study: Postural dizziness with near syncope; Tachycardia Cardiac Rhythm: Regular.Study quality: Technically limited. Final Impressions: 1. Normal LV size, normal wall thickness, normal global systolic function with an estimated EF of 60 - 65%. 2. Right ventricular cavity size is normal, global systolic RV function is borderline reduced. 3. Normal diastolic function for age. 4. No significant valve disease detected. 5. Echo contrast was administered to enhance visualization of all left ventricular segments. Comparison Compared to prior exam of 12/16/2018, there has been no significant change. Chamber Sizes and Function Normal left ventricular size, normal wall thickness, normal global systolic function with an estimated EF of 60 - 65%. No resting regional wall motion abnormality visualized. Left atrial size is normal. Left atrial pressure is normal. Right ventricular cavity size is normal, global systolic RV function is borderline reduced. RV wall thickness is normal. The right atrium is normal. Right atrial volume index is 14 ml/m . Right atrial area is 11 cm . The pulmonary artery is of normal size and origin. The sinus of Valsalva is normal sized. The ascending aorta is normal sized. Valves, RV Pressures and Diastolic Function The aortic valve is normal in structure and trileaflet, no stenosis and no regurgitation. The mitral valve is normal in structure, trace mitral regurgitation. Normal diastolic function for age. The tricuspid valve is normal in structure, trace tricuspid regurgitation. Unable to assess right ventricular systolic pressure. The pulmonic valve is normal. No pulmonary regurgitation. Masses, Effusion, Shunts There is no pericardial effusion. The inferior vena cava is normal sized, respiratory size variation not well visualized. No left to right shunting was detected by limited color flow Doppler interrogation of the interatrial septum. MEASUREMENTS AND CALCULATIONS 2-D Measurements and LV Function: LVID (d) 3.7 cm LV FS% (2D) 41 % LVID (s) 2.2 cm LVOT diameter 1.8 cm IVS (d) 1.0 cm HR 77 bpm LVPW (d) 0.9 cm LA Vol index 17 ml/m2 Ao Sinus 3.6 cm RA Vol index 14 ml/m2 Ao Sinus ULN 3.8 cm * RA area 11 cm Asc Ao 3.5 cm RV Basal Diam 3.2 cm Asc Ao ULN 3.9 cm * RV Mid Diam 2.4 cm * Input BSA outside of range, reported values correspond to BSA = 1.9 Diastology: Mitral Tissue Doppler E Peak 0.5 m/s e', Septum 0.08 m/s A Peak 0.6 m/s e', Lateral 0.09 m/s E/A 0.9 E/e' Average 6.25 DT 346 msec Aortic Valve: Vmax 1.3 m/s ANNEMARIE (V) 2.11 cm VTI 0.26 m ANNEMARIE (I) 1.66 cm LVOT V max 1.0 m/s Max PG 6 mmHg LVOT VTI 0.17 m Mean PG 4 mmHg SV 44 ml Dim Index 0.63 SV index 23 ml/m CO 3.4 l/min CI 1.8 l/min/m Mitral Valve: MVA 2.2 cm MV P 1/2 100 msec Tricuspid Valve and estimated PA pressures: TAPSE 1.6 cm Pulmonic Valve: PV Vmax 0.7 m/s Contrast documentation: 1 ml diluted Definity, lot #[id number], [facility]# [id number] was administered peripherally to enhance visualization of all left ventricular segments. . This study was interpreted by an [facility] accredited facility. Final Procedure Note Richie Maldonado MD - 07/12/2024 ECHOCARDIOGRAM SOPHIE CASTRO : 1955 69 years Study Date: 07/12/2024 8:05:10 AM Gender: F BP: 124/58 mmHg Height: 157.00 cm BSA: 1.91 m Weight: 91.00 kg Tech: JOSE C Referring MD: ANGI ESTEVEZ Site: [facility] Reading Location: MOBILE-OP Patient Location: Outpatient. Procedure: 2D w/ Contrast, Color Doppler and Spectral Doppler. Indication for study: Postural dizziness with near syncope; Tachycardia Cardiac Rhythm: Regular.Study quality: Technically limited. Final Impressions: 1. Normal LV size, normal wall thickness, normal global systolic functionwith an estimated EF of 60 - 65%. 2. Right ventricular cavity size is normal, global systolic RV functionis borderline reduced. 3. Normal diastolic function for age. 4. No significant valve disease detected. 5. Echo contrast was administered to enhance visualization of all leftventricular segments. Comparison Compared to prior exam of 12/16/2018, there has been no significantchange. Chamber Sizes and Function Normal left ventricular size, normal wall thickness, normal globalsystolic function with an estimated EF of 60 - 65%. No resting regionalwall motion abnormality visualized. Left atrial size is normal. Leftatrial pressure is normal. Right ventricular cavity size is normal, globalsystolic RV function is borderline reduced. RV wall thickness is normal.The right atrium is normal. Right atrial volume index is 14 ml/m . Rightatrial area is 11 cm . The pulmonary artery is of normal size and origin.The sinus of Valsalva is normal sized. The ascending aorta is normalsized. Valves, RV Pressures and Diastolic Function The aortic valve is normal in structure and trileaflet, no stenosis and noregurgitation. The mitral valve is normal in structure, trace mitralregurgitation. Normal diastolic function for age. The tricuspid valve isnormal in structure, trace tricuspid regurgitation. Unable to assess rightventricular systolic pressure. The pulmonic valve is normal. No pulmonaryregurgitation. Masses, Effusion, Shunts There is no pericardial effusion. The inferior vena cava is normal sized,respiratory size variation not well visualized. No left to right shuntingwas detected by limited color flow Doppler interrogation of theinteratrial septum. MEASUREMENTS AND CALCULATIONS 2-D Measurements and LV Function: LVID (d) 3.7 cm LV FS% (2D) 41% LVID (s) 2.2 cm LVOT diameter1.8 cm IVS (d) 1.0 cm HR 77bpm LVPW (d) 0.9 cm LA Vol index 17ml/m2 Ao Sinus 3.6 cm RA Vol index 14ml/m2 Ao Sinus ULN 3.8 cm * RA area 11cm Asc Ao 3.5 cm RV Basal Diam3.2 cm Asc Ao ULN 3.9 cm * RV Mid Diam2.4 cm * Input BSA outside of range, reported values correspond to BSA = 1.9 Diastology: Mitral Tissue Doppler E Peak 0.5 m/s e', Septum 0.08 m/s A Peak 0.6 m/s e', Lateral 0.09 m/s E/A 0.9 E/e' Average 6.25 DT 346 msec Aortic Valve: Vmax 1.3 m/s ANNEMARIE (V) 2.11 cm VTI 0.26 m ANNEMARIE (I) 1.66 cm LVOT V max 1.0 m/s Max PG 6 mmHg LVOT VTI 0.17 m Mean PG 4 mmHg SV 44 ml Dim Index 0.63 SV index 23 ml/m CO 3.4 l/min CI 1.8 l/min/m Mitral Valve: MVA 2.2 cm MV P 1/2 100 msec Tricuspid Valve and estimated PA pressures: TAPSE 1.6 cm Pulmonic Valve: PV Vmax 0.7 m/s Contrast documentation: 1 ml diluted Definity, lot #[id number], [facility]#[id number] was administered peripherally to enhance visualization of allleft ventricular segments. . This study was interpreted by an [facility] accredited facility. Final [employer] Tyler DO ECHO ORD Final Result * VITAMIN D 25 (DEFICIENCY) (07/07/2024 12:08 PM CDT) VITAMIN D,25-OH,TOTAL,IA 55 30 - 100 ng/mL [facility] Comment: Vitamin D Status 25-OH Vitamin D: Deficiency: <20 ng/mL Insufficiency: 20 - 29 ng/mL Optimal: > or = 30 ng/mL For 25-OH Vitamin D testing on patients on D2-supplementation and patients for whom quantitation of D2 and D3 fractions is required, the QuestAssureD(TM) 25-OH VIT D, (D2,D3), LC/MS/MS is recommended: order code 06029 (patients >2yrs). See Note 1 Note 1 For additional information, please refer to http://education.Deep Driver/faq/LHY680 (This link is being provided for informational/ educational purposes only.) Blood BLOOD SPECIMEN / Unknown 07/07/2024 12:08 PM CDT 07/07/2024 12:08 PM CDT [employer] Tyler DO SEND OUTS Final Result [employer] [facility] [address] [place] [address], [facility] [address] [place] [address] * (ABNORMAL) BASIC METABOLIC PANEL (07/07/2024 12:08 PM CDT) Pathologist [facility] GLUCOSE 72 65 - 99 mg/dL [facility] Comment: Fasting reference interval UREA NITROGEN (BUN) 12 7 - 25 mg/dL [facility] CREATININE 0.80 0.50 - 1.05 mg/dL [facility] EGFR 81 > OR = 60 mL/min/1. 73m2 [facility] BUN/CREATININE RATIO SEE NOTE: 6 - 22 (calc) [facility] Comment: Not Reported: BUN and Creatinine are within reference range. SODIUM 139 135 - 146 mmol/L [facility] POTASSIUM 4.5 3.5 - 5.3 mmol/L [facility] CHLORIDE 100 98 - 110 mmol/L [facility] CARBON DIOXIDE 33(H) 20 - 32 mmol/L [facility] ELECTROLYTE BALANCE 6(L) 7 - 17 mmol/L (calc) [facility] CALCIUM 9.8 8.6 - 10.4 mg/dL [employer] Blood BLOOD SPECIMEN / Unknown 07/07/2024 12:08 PM CDT 07/07/2024 12:08 PM CDT Angi Estevez CHEMISTRY Final Result [employer] [facility] [address] [place] [address], [facility] [id number] [place] [address] * CT ABDOMEN PELVIS WO (05/28/2024 10:13 AM EXECUTIVE DIRECTOR) Anatomical Region Laterality Modality Abdomen, Pelvis, AORTA, LIVER, SPLEEN Computed Tomography 05/28/2024 1:29 PM EXECUTIVE DIRECTOR Narrative 05/28/2024 1:29 PM EXECUTIVE DIRECTOR For Patients: As a result of the [...] W REFLEX MEASURED LDL (03/07/2023 10:18 AM EXECUTIVE DIRECTOR) CHOLESTEROL,TOTAL 203(H) 100 - 199 mg/dL 03/07/2023 4:59 PM EXECUTIVE DIRECTOR [facility] [employer] [facility] Comment: Cholesterol, Total Reference Ranges Desirable <200 mg/dL Borderline 200-239 mg/dL High >=240 mg/dL TRIGLYCERIDES 150(H) <150 mg/dL 03/07/2023 4:59 PM EXECUTIVE DIRECTOR [facility] [employer] [facility] HDL CHOLESTEROL 73 >40 mg/dL 4:59 PM EXECUTIVE DIRECTOR [facility] NON-HDL CHOLESTEROL 130 <145 mg/dl 03/07/2023 4:59 PM EXECUTIVE DIRECTOR [facility] CHOL/HDL RATIO 2.78 <4.50 03/07/2023 4:59 PM EXECUTIVE DIRECTOR [facility] LDL CHOLESTEROL 100 <=130 mg/dL 03/07/2023 4:59 PM EXECUTIVE DIRECTOR [facility] VLDL CHOLESTEROL 30 <=30 mg/dL 03/07/2023 4:59 PM EXECUTIVE DIRECTOR [facility] PROVIDER ORDERED STATUS RANDOM 03/07/2023 4:59 PM EXECUTIVE DIRECTOR [facility] Blood BLOOD SPECIMEN / Unknown Venipuncture / Unknown 03/07/2023 10:18 AM EXECUTIVE DIRECTOR 03/07/2023 10:25 AM EXECUTIVE DIRECTOR us Angi Estevez DO CHEMISTRY Final Result [facility] [address] [place] [address], * (ABNORMAL) XR DXA BONE DENSITY 2 SITES AXIAL [65354.1] (02/27/2023 11:35 AM EXECUTIVE DIRECTOR) Anatomical Region Laterality Modality Spine, HIPS, HIPL, HIPR Other Impressions 03/10/2023 7:43 AM EXECUTIVE DIRECTOR Osteoporosis. RECOMMENDATIONS: The National Osteoporosis Foundation recommends [...] to assess therapeutic efficacy. Marisa Orozco PA-C [facility] 03/10/2023 Narrative 03/10/2023 7:43 AM EXECUTIVE DIRECTOR For Patients: Results are automatically released to your [employer] account once available, in compliance with federal regulations. This means that you may see your results before your provider has had a chance to review them. Please allow 2-3 business days for your provider to comment on the results. XR DXA Bone Mineral Density (BMD) EXAM LOCATION: [address] [address] PATIENT NAME: Sophie Castro DATE OF : 1955 EXAM DATE: 02/27/2023 [...] two scanners are made by the same market relationship manager. PROCEDURE: Dual-energy x-ray absorptiometry performed with routine [...] 54.8%. 10-year probability of hip fracture: 13.0%. us Angi Estevez DO DEXA Final Result * XR MAMMO PATIENCE BILAT SCREEN (02/27/2023 11:12 AM EXECUTIVE DIRECTOR) Anatomical Region Laterality Modality BREASTS, Breast Left, Breast Right Bilateral Mammography Impressions 02/27/2023 2:01 PM EXECUTIVE DIRECTOR There is no radiographic evidence for malignancy. Recommend annual mammograms. MAMMOGRAM ASSESSMENT: ACR 1 Negative PATIENTS: You will also receive a letter with your examination results in an easy to read format. If you have questions about your results, please contact your referring provider. Narrative 02/27/2023 2:01 PM EXECUTIVE DIRECTOR For Patients: As a result of the Century Cures Act, medical imaging exams and procedure reports are released immediately into your electronic medical record. You may view this report before your referring provider. If you have questions, please contact your health care provider. XR MAMMO PATIENCE BILAT SCREEN [[id number]] CLINICAL HISTORY: This is an asymptomatic 67 y.o. patient. INDICATION FOR EXAM: Mammogram Screening. TECHNIQUE: CC & MLO views were obtained. This study was evaluated with the assistance of Computer-Aided Detection. Breast Tomosynthesis was used in interpretation. COMPARISON FILM: Yes [facility]21 [facility] FINDINGS: The breasts have scattered areas of fibroglandular density. There are no dominant masses, suspicious micro calcifications or areas of architectural distortion. us Angi Netta Hackettqra DO MAMMO Final Result * ANTI HCV (10/18/2021 12:14 PM CDT) HEPATITIS C ANTIBODY Non-React fiona Non-React fiona 10/19/2021 3:38 AM CDT [facility] [employer] [facility] Comment:Antibodies to HCV no t detected; does not exclude the possibility of exposure to HCV. Blood BLOOD SPECIMEN / Unknown Venipuncture / Unknown 10/18/2021 12:14 PM CDT 10/18/2021 12:16 PM CDT us Betina BRANTLEY SEND OUTS Final Resu lt [facility] [employer] [facility] 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
--- OUTSIDE RECORDS SUMMARY | 2024-07-26 12:48 | XMS_ITS | Encounter Summary ---
Author Organization [facility] Address [address] [place] [address] Care Team Providers Care Audit Partner Name Role Phone Gaby Fleming MD Primary Care Provider [phone] Encounter Details Date Type Department Care Team (Late st Contact Info) Description 08/09/2011 Consent for Procedure/Treatme [facility] Department INFORMED CONSENT RECORD Social History Tobacco [...] as of this encounter Progress Notes * [facility], PROVIDER - 08/09/2011 12:00 AM CDT documented in this encounter Plan of Treatment Not on file documented as of this encounter Visit Diagnoses Not on filedocumented in this encounter Care Teams Audit Partner Relationship Specialty Start Date End Date Gaby Fleming MD [address] [place] [address] PCP - General 01/29/06 documented as of this encounter
--- OUTSIDE RECORDS SUMMARY | 2024-07-26 12:48 | XMS_ITS | Encounter Summary ---
Author Organization [facility] Address [address] [place] [address] Care Team Providers Care Cadastral Engineer Name Role Phone Gaby Fleming MD Primary Care Provider [phone] Encounter Details Date Type Department Care Team (Latest Contact Info) Description 06/23/1997 Orders Only Terese Panda MD [facility] [place] [address] Social History Tobacco Use Types Packs/Day Years [...] on filedocumented in this encounter Care Teams Cadastral Engineer Relationship Specialty Start Date End Date Gaby Fleming MD [address] [place] [address] PCP - General 01/29/06 documented as of this encounter
--- OUTSIDE RECORDS SUMMARY | 2024-07-26 12:48 | XMS_ITS | Encounter Summary ---
Author Organization [facility] Address [address] [place] [address] Care Team Providers Care Commercial Hvac Technician Name Role Phone None Reported, Pcp Primary Care Provider Unavail able Reason for Visit * Reason Comments Med Refill Encounter Details Date Type Department Care Team (Late st Contact Info) Description 07/22/2024 Refill Division of Endocrinology in [place], [place] [address] [place] [id number] Ronna Tang M.D. [address] [place] [address] Med Refill Social History Tobacco Use Types Packs/Day Years Used Date Smoking Tobacco: Never Passive Smoke Exposure: Never Smokeless Tobacco: Never Alcohol Use Standard Drinks/Week Comments Never 0 (1 standard drink = 0.6 oz pur e alcohol) [facility] Utilities Answer Date Recorded In the past 12 months has [facility], gas, oil, or water [facility] threatened to shut off services in your [...] often do you attend chur ch or anabaptist services? More than 4 times per year 12/23/2021 Do you belong to any clubs o r organizations such as mu-ism groups, unions, fraternal or athletic groups, or [...] Answer Date Recorded PHQ-2 Score 2 01/21/2024 [facility] Occupational Stress Questionnaire Answer [...] your living situation today? I have a [facility] place to live 03/11/2024 Education Answer Date Recorded What is the highest level of school you have completed or the highest degree you have received? Master's degree (e.g., MA, MS, Tc, MEd, DIRECTOR OF EPIDEMIOLOGY, [employer]) 09/07/2018 Comments Unknown Sex and Gender Information Value Date Recorded Sex Assigned at Female 01/02/2021 11:08 AM CDT Legal Sex Female 10:48 AM CDT Gender Identity Female 03/11/2019 12:39 PM MOTORBIKE COURIER Sexual Orientation Straight 03/11/2019 12 :39 PM MOTORBIKE COURIER documented as of this encounter Plan of Treatment Not on file documented as of this encounter Visit Diagnoses Not on filedocumented in this encounter Additional Health Concerns Assessment Noted Time PHQ-9 Depression Total Score: 5 01/12/20 20 1:04 PM CDT documented as of this encounter Care Teams Commercial Hvac Technician Relationship Specialty Start Date End Date None Reported, Pcp PCP - General Family Medicine 01/26/24 documented as of this encounter
--- OUTSIDE RECORDS SUMMARY | 2024-07-26 12:48 | XMS_ITS | Encounter Summary ---
Author Organization [facility] Address [address] [place] [address] Care Team Providers Care Attacher Name Role Phone Gaby Fleming MD Primary Care Provider [phone] Encounter Details Date Type Department Care Team (Late st Contact Info) Description 01/10/2015 Correspondence [facility] Psychiatry [address] [place] [id number] Jaycob Ayala MD LETTER Social History Tobacco [...] on filedocumented in this encounter Care Teams Attacher Relationship Specialty Start Date End Date Gaby Fleming MD [address] [place] [address] PCP - General 01/29/06 documented as of this encounter
--- OUTSIDE RECORDS SUMMARY | 2024-07-26 12:49 | XMS_ITS | Encounter Summary ---
Author Organization [facility] Address [address] [place] [address] Care Team Providers Care Mc Kay Machine Operator Name Role Phone Gaby Fleming MD Primary Care Provider [phone] Encounter Details Date Type Department Care Team (Late st Contact Info) Description 07/29/2014 Correspondence None No Primary/Referring, Phy EQUIPMENT AIRCRAFT STRUCTURAL REPAIR MECHANIC TICKET Social History Tobacco Use Types [...] on filedocumented in this encounter Care Teams Mc Kay Machine Operator Relationship Specialty Start Date End Date Gaby Fleming MD [address] [place] [address] PCP - General 01/29/06 documented as of this encounter
--- OUTSIDE RECORDS SUMMARY | 2024-07-26 12:49 | XMS_ITS | Encounter Summary ---
Author Organization [facility] Address [address] [place] [address] Care Team Providers Care Adult Daycare Coordinator Name Role Phone Gaby Fleming MD Primary Care Provider [phone] Encounter Details Date Type Department Care Team [...] on filedocumented in this encounter Care Teams Adult Daycare Coordinator Relationship Specialty Start Date End Date Gaby Fleming MD [address] [place] [address] PCP - General 01/29/06 documented as of this encounter
--- OUTSIDE RECORDS SUMMARY | 2024-07-26 12:49 | XMS_ITS | CCD ---
Author Organization Unknown Care Team Providers Care Leathersmith Name Role Phone [place], [place] Primary Care Provider Unava ilable Unavailable Chronic Care Management Unavaila ble Summary Purpose DataExchange Insurance Providers Payer name Policy type / Coverage type Covered constitution party ID Effective Begin Date Effective End Date [facility] Commercial Insurance [id number] Unknown Unkn own Family History Family History data not found Medication Administered No Medication Administered data Reason For Visit No Reason For Visit data
--- OUTSIDE RECORDS SUMMARY | 2024-07-26 12:50 | XMS_ITS | Encounter Summary ---
Author Organization [facility] Address [address] [place] [address] Care Team Providers Care Metalizing Supervisor Name Role Phone Gaby Fleming MD Primary Care Provider [phone] Encounter Details Date Type Department Care Team (Late st Contact Info) Description 07/17/2015 Correspondence None No Primary/Referring, Phy HME EQUIPMENT MEAT CARVER TICKET Social History Tobacco Use Types Packs/Day [...] on filedocumented in this encounter Care Teams Metalizing Supervisor Relationship Specialty Start Date End Date Gaby Fleming MD [address] [place] [address] PCP - General 01/29/06 documented as of this encounter
--- OUTSIDE RECORDS SUMMARY | 2024-07-26 12:50 | XMS_ITS | Encounter Summary ---
Author [facility] Address [address] [place] [address] Care Team Providers Care Psychometrist Name Role Phone Gaby Fleming MD Primary Care Provider [phone] Encounter Details Date Type Department Care Team (Latest Contact Info) Description 11/22/2013 Correspondence [facility] Partial Hospitalization Program [address] [place] [address] [facility] SAFETY PLAN Social History Tobacco Use [...] on filedocumented in this encounter Care Teams Psychometrist Relationship Specialty Start Date End Date Gaby Fleming MD [address] [place] [address] PCP - General 01/29/06 documented as of this encounter
--- OUTSIDE RECORDS SUMMARY | 2024-07-26 12:50 | XMS_ITS | Encounter Summary ---
Author Organization [facility] Address [address] [place] [address] Care Team Providers Care Calender Inspector Name Role Phone Gaby Fleming MD Primary Care Provider [phone] Encounter Details Date Type Department Care Team (Late st Contact Info) Description 04/06/2015 Correspondence None No Primary/Referring, Phy HME EQUIPMENT FABRICATION AND LAYOUT CRAFTSMAN TICKET Social History Tobacco Use Types Packs/Day [...] on filedocumented in this encounter Care Teams Calender Inspector Relationship Specialty Start Date End Date Gaby Fleming MD [address] [place] [address] PCP - General 01/29/06 documented as of this encounter
--- OUTSIDE RECORDS SUMMARY | 2024-07-26 12:50 | XMS_ITS | Encounter Summary ---
Author [facility] Address [address] [place] [address] Care Team Providers Care Producer Name Role Phone Gaby Fleming MD Primary Care Provider [phone] Encounter Details Date Type Department Care Team (Late st Contact Info) Description 10/06/2014 Correspondence [facility] Radiology [address] [place] [id number] Radiology, Provider MRI SAFETY SHEET AND COMPATIBILITY [...] on filedocumented in this encounter Care Teams Producer Relationship Specialty Start Date End Date Gaby Fleming MD [address] [place] [address] PCP - General 01/29/06 documented as of this encounter
--- OUTSIDE RECORDS SUMMARY | 2024-07-26 12:50 | XMS_ITS | Encounter Summary ---
Author [facility] Address [address] [place] [address] Care Team Providers Care Dental Cream Maker Name Role Phone Gaby Fleming MD Primary Care Provider [phone] Encounter Details Date Type Department Care Team [...] filedocumented in this encounter Care Teams Dental Cream Maker Relationship Specialty Start Date End Date Gaby Fleming MD [address] [place] [address] PCP - General 01/29/06 documented as of this encounter
--- OUTSIDE RECORDS SUMMARY | 2024-07-26 12:50 | XMS_ITS | Encounter Summary ---
Author Organization [facility] Address [address] [place] [address] Care Team Providers Care Engineering Test Specialist Name Role Phone Gaby Fleming MD Primary Care Provider [phone] Encounter Details Date Type Department Care Team [...] on filedocumented in this encounter Care Teams Engineering Test Specialist Relationship Specialty Start Date End Date Gaby Fleming MD [address] [place] [address] PCP - General 01/29/06 documented as of this encounter
--- OUTSIDE RECORDS SUMMARY | 2024-07-26 12:50 | XMS_ITS | Encounter Summary ---
Author Organization [facility] Address [address] [place] [address] Care Team Providers Care Aircraft Structure Mechanic Name Role Phone Gaby Fleming MD Primary Care Provider [phone] Encounter Details Date Type Department Care Team [...] on filedocumented in this encounter Care Teams Aircraft Structure Mechanic Relationship Specialty Start Date End Date Gaby Fleming MD [address] [place] [address] PCP - General 01/29/06 documented as of this encounter
--- OUTSIDE RECORDS SUMMARY | 2024-07-26 12:50 | XMS_ITS | Encounter Summary ---
Author Organization [facility] Address [address] [place] [address] Care Team Providers Care Patternmaker Helper Name Role Phone Gaby Fleming MD Primary Care Provider [phone] Encounter Details Date Type Department Care Team [...] on filedocumented in this encounter Care Teams Patternmaker Helper Relationship Specialty Start Date End Date Gaby Fleming MD [address] [place] [address] PCP - General 01/29/06 documented as of this encounter
--- OUTSIDE RECORDS SUMMARY | 2024-07-26 12:50 | XMS_ITS | Encounter Summary ---
Author Organization [facility] Address [address] [place] [address] Care Team Providers Care Helpdesk Administrator Name Role Phone Gaby Fleming MD Primary Care Provider [phone] Encounter Details Date Type Department Care Team (Late st Contact Info) Description 09/27/2016 Correspondence [facility] [address] [facility] [place], [place] [phone] Jason Barrett MD [address] [place], [place] [id number] [facility] Social History Tobacco [...] on filedocumented in this encounter Care Teams Helpdesk Administrator Relationship Specialty Start Date End Date Gaby Fleming MD [address] [place] [address] PCP - General 01/29/06 documented as of this encounter
--- OUTSIDE RECORDS SUMMARY | 2024-07-26 12:50 | XMS_ITS | Encounter Summary ---
Author Organization [facility] Address [address] [place] [address] Care Team Providers Care Assistant Professor Of English Name Role Phone Gaby Fleming MD Primary Care Provider [phone] Encounter Details Date Type Department Care Team [...] on filedocumented in this encounter Care Teams Assistant Professor Of English Relationship Specialty Start Date End Date Gaby Fleming MD [address] [place] [address] PCP - General 01/29/06 documented as of this encounter
--- OUTSIDE RECORDS SUMMARY | 2024-07-26 12:50 | XMS_ITS | Encounter Summary ---
[facility] Address [address] [place] [address] Care Team Providers Care Anatomy And Physiology Instructor Name Role Phone Gaby Fleming MD Primary Care Provider [phone] Encounter Details Date Type Department Care Team [...] on filedocumented in this encounter Care Teams Anatomy And Physiology Instructor Relationship Specialty Start Date End Date Gaby Fleming MD [address] [place] [address] PCP - General 01/29/06 documented as of this encounter
--- OUTSIDE RECORDS SUMMARY | 2024-07-26 12:50 | XMS_ITS | Clinical Summary ---
Author Organization [facility] Address [address] [place] [address] Care Team Providers Care Oncologist Name Role Phone Kat Fleming MD Primary Care Provider [phone] Source Comments You are receiving this document as you are listed as the primary care provider,follow-up provider, or the patient has been referred to you for consultation.This is in compliance with the Medicare andOhio[facility] Cent[facility]aid EHR Incentive Program,which states Providers who transition their patient to another setting of careor provider of care or refers their patient to another provider of care shouldprovide summary care record for each transition of care or referral. Krave-N Allergies Active Allergy Reactions Criticality Noted Date Comments Iodinated Contrast Media Anaphylaxis High 05/26/2014 Pt given Epi Pen and sent to ER post injection CT Contrast with pre medication given to patient prior to Contrast injection. Nitrofurantoin Other Anaphylaxis High 06/29/2014 Hand mysql database developer used by someone else in her group [...] opened 05/23/14, assigned to Radha Cantu RN, [facility], [facility] @ [phone] Interactive with Asthma Disease Management Program, opt [...] 07/26/2014 Vocal cord dysfunction 07/25/2014 CAREPLAN: [facility] CASE MANAGEMENT 2014 Overview (08/14/2016): Background: 11/04/14 Continue case open to Behavioral Health Case Manuel/Kim Spain @ [phone] Engaged in Complex Case Management: Santa Garcia RN [phone] Goals/Recommendations: CM will encourage patient to f/t [...] dated 09/08/2015. Also terminated by Deborah Campos [facility] (psychotherapy). Jaycob Ayala MD 09/08/2015, 3:15 PM Adjustment disorder with mix ed anxiety and depressed mood 08/04/2015 12/06/2015 Sensory integration disorder 07/26/2015 12/06/2015 Impaired mobility and ADLs 07/26/2015 0 12/06/2015 Severe episode of recurrent major depressive disorder, without psychotic features 06/09/201509/2015 Panic disorder without agoraphobia 04/20/2015 12/06/2015 [facility] Behavioral Health Case Management 10/07/19 15 01/11/2016 Overview (10/06/2014): Background: Diagnosis: Major Depressive Disorder, Generalized Anxiety Disorder, PTSD, Panic Disorder and Dissociative Identity Disorder. Current situation: The member was recently hospitalized on a psych unit at [facility] from 10/02/14-10/06/14. She was discharged with psychotherapy and psychiatry appointments. Providers outside of [facility]: The member sees two therapists at [facility]. Filipe Mcwilliams and Faith Vazquez. They can be reached at [phone]. Goals/Recommendations: Outpatient Behavioral Health Pharmacovigilance SpecialistPin Or Clip Fastener Information: Kim Sosa MA, [facility] [phone] Action Plan: The member was provided with [...] Disorder Panic disorder without agoraphobia 12/30/2013 02/03/2015 [facility] Behavioral Health Case Management 12/24/19 14 02/21/2014 Overview (12/23/2013): Background: Enrolled in [facility] [place] Algologist Program - coaching for Anxiety & Depression. Diagnosis: Dysthymia; Panic Disorder Current situation: Reports experiencing symptoms of depression and anxiety due to family stressors and significant challenges with maintaining a work/family balance. Patient has been participating in intensive mental health treatment since the middle of October. Patient s all 5 children live at home with her along with her elderly [id number]. Patient reports that she has experienced symptoms of depression for many years however, the anxiety is new for her and that she has challenges with her overall self-care. Providers outside of [facility]: Currently attending IOP at [facility] Goals/Recommendations: Outpatient Depression/Anxiety [employer] Contact Information: Garry Roman MS, [facility] [phone] Action Plan: To continue to work on improving overall self-care by developing a sleep schedule, engaging in physical activity, eating a balance diet, relaxation and participating in enjoyable activities. [employer] to provide health education information on overall self-care, stress relief, relaxation, anxiety, healthy eating as well as community support for anxiety/panic. Diverticulitis 10/16/2013 12/06/2015 Head revolving around 10/16/20132014 Nontoxic uninodular goiter 03/27/2004 1 04/05/2014 Immunizations Immunization Administration Dates Next Due DTaP 09/28/2014 Flu Vac (3+ yrs) 01/10/2012, 1,12/29/2008,2006,01/15/2006,01/11/2005,03/01/2004,1 04/04/2002,02/04/2002,02/04/2001, 000,01/18/1999 HepA-HepB ([place], 18+ yrs) 01/17/2016,06/02/19 03,12/25/2001 Influenza IIV4 (Quadrivalent ) 0.5mL (38783) 12/06/2015,12/22/2014,12/07/2013,2012 Influenza Vaccine (3+years) ([facility]) 01/09/2010,01/12/2008 Influenza, Unspecified Formulation 01/10/1998, PPSV23 [...] Comments Medicare Annual Wellness Visit 1955 Zoster/Shingles Vaccine (1 of 2) 06/20/2007 Pneumococcal Vaccine 50+ Yrs (2 of 2 - PCV) 02/06/2013 02/07/2012 Mammogram 04/11/2016 04/11/2014, 0 05/2012, 07/31/2012, Additional history exists Cholesterol 03/19/2021 03/19/2016, 09/2015, 02/03/2015, Additional history exists Colonoscopy 08/08/2021 08/09/2011, 08/09/2011 COVID-19 Vaccine ( - 2023- season) 2023 Influenza Vaccine (#1) 2023 6, 12/22/2014, 12/07/2013, Additional history exists DTaP/Tdap/Td Vaccine (4 - Tdap) 10/26/2024 10/26/2014, 09/28/2014, 05/15/2010, Additional history exists RSV Vaccine (1 - 1-dose 75+ series) 2032 Cervical Cancer Screening Discontinued 2014, 02/11/2011, 02/11/2011, Additional history exists Hep C Screening (Preventive Services) Completed 12/06/2015, 02/07/2012 HepA Vaccine Aged Out 01/17/2016, 03/0 06/2002, 12/25/2001 No longer eligible based on patient's age to complete this topic Hib Vaccine Aged Out No longer eligi ble based on patient's age to complete this topic IPV (Polio) Vaccine Aged Out No longe r eligible based on patient's age to complete this topic MCV4 Vaccine Aged Out No longer eligi ble based on patient's age to complete this topic Meningococcal B Vaccine Aged Out No l onger eligible based on patient's age to complete this topic Medical Devices Implanted Type Area Cad Designer Device Identifier Shelf Expiration Date Model / Serial / Lot Sling Advantage Mid-Urethral - [id number] Implanted:Qty: 1 on 02/21/2015 by Carlos Barrow MD at [facility] DEVICE N/A: VAGINA Buda Scien designer architect 10/26/2017 [id number] / / [id number] Procedures Procedure Name Priority Date/Time Associated Diagnosis Comments LIPID PANEL & DIRECT LDL (IF NEEDED) Routine 03/19/2016 11:16 AM ASSOCIATE PROFESSOR OF PHYSICS Pre-diabetes HEPATITIS C ANTIBODY, WITH REFLEX Routine 12/06/2015 9:36 AM CDT Preventative health care PAP TEST, ROUTINE Routine 09/06/2014 8:2 8 AM CDT Screening for cervical cancer MM MAMMOGRAM SCREENING BILAT W CAD Routine 04/11/2014 2:06 PM ASSOCIATE PROFESSOR OF PHYSICS COLONOSCOPY Routine 08/09/2011 8:56 AM CDT Abn findings-GI tract from Last 3 Months or Most Recently Relevant to Health Maintenance Results * (ABNORMAL) Lipid Panel and Direct LDL(If Needed) (03/19/2016 11:16 AM ASSOCIATE PROFESSOR OF PHYSICS) Hours Fasting 2 hours [facility] Cholesterol 179 0 - 199 mg/dl [facility] Triglyceride 161(H) 0 - 149 mg/dl [facility] HDL 40(L) >40 mg/dl [facility] LDL, Calc. 107 0 - 129 mg/dl [facility] Non HDL Chol, Calc 139 mg/dl [facility] 03/19/2016 11:1 6 AM ASSOCIATE PROFESSOR OF PHYSICS 03/19/2016 11:17 AM ASSOCIATE PROFESSOR OF PHYSICS Narrative [facility] - 03/19/2016 6:49 PM ASSOCIATE PROFESSOR OF PHYSICS Performed at [facility], [address] [place] [address] us Kat Fleming MD LAB_1 Final Resul t Performing Organization Address [facility] de Phone Number [facility] [phone] * Hepatitis C Antibody, with Reflex (12/06/2015 9:36 AM CDT) Anti-HCV Negative (Non Reactive) NEGNR [facility] Comment: Antibodies to HCV not detected. Does not exclude the possibility of exposure to HCV. 12/06/2015 9:36 AM CDT 12/06/2015 9:37 AM CDT Narrative [facility] - 12/06/2015 8:01 PM CDT Performed at [facility], [address] [place], [place] [id number] us Kat Fleming MD LAB_1 Final Resul t Performing Organization Address [facility] de Phone Number [facility] [phone] * PAP TEST, ROUTINE (09/06/2014 8:28 AM CDT) Cytology, Pap (NOTE) [facility] Report Patient Name: SOPHIE CASTRO Taken: 09/06/2014 Received: 09/06/2014 Reported: 09/12/2014 Physician(s): KAT FLEMING ([id number]) Source of Specimen Pap Test, Routine Cervical/Endocervi zane: Specimen Adequacy Satisfactory for evaluation. Endocervical component present. Final Cytologic Interpretation/Res ult NEGATIVE FOR INTRAEPITHELIAL LESION OR MALIGNANCY (NILM) Other Cytologic Findings Atrophy Electronically Signed Out By ABDELRAHMAN Andrew (ASCP) ABDELRAHMAN Andrew (ASCP) Pap Smear History Date of Last Menstrual Period: Menopausal Microscopic Description Microscopic examination is performed. [facility] Department of Pathology [address] [place] [id number] [facility] 09/06/2014 8:28 AM CDT 09/06/2014 5:03 PM CDT Result [facility] Kat Fleming MD LAB_1 Final Resul t [facility] [phone] * MAMMOGRAM SCREENING BILATERAL (04/11/2014 2:06 PM ASSOCIATE PROFESSOR OF PHYSICS) Anatomical Region Laterality Modality Breast Bilateral Mammography Narrative 04/12/2014 2:34 PM ASSOCIATE PROFESSOR OF PHYSICS BILATERAL FULL FIELD DIGITAL SCREENING MAMMOGRAM Performed [...] RAD ZENA Final Resul t * COLONOSCOPY [[id number]] (08/09/2011 8:56 AM CDT) 08/09/2011 8:56 AM [...] previously scheduled. CPT(R) Code(s): --- Professional --- 92275, Colonoscopy, flexible, proximal to splenic flexure; diagnostic, with or without collection of specimen(s) by brushing or washing, with or without colon decompression (separate procedure) ICD9 Code(s): --- Professional --- 793.4, Nonspecific (abnormal) findings on radiological and other examination of gastrointestinal tract 562.10, Diverticulosis of colon (without mention of hemorrhage) CPT (R) 2011 [employer]. All Rights Reserved. The codes documented in this report are preliminary and upon block cuber review may be revised to meet current [...] previously scheduled. CPT(R) Code(s): --- Professional --- 43944, Colonoscopy, flexible, proximal to splenic flexure; diagnostic, with or without collection of specimen(s) by brushing or washing, with or without colon decompression (separate procedure) ICD9 Code(s): --- Professional --- 793.4, Nonspecific (abnormal) findings on radiological and other examination of gastrointestinal tract 562.10, Diverticulosis of colon (without mention of hemorrhage) CPT (R) 2011 [employer]. All Rights Reserved. The codes documented in this report are preliminary and upon block cuber review may be revised to meet current compliance requirements. Attending Participation: Ari Amanda MD 08/09/2011 9:21 AM Number of Addenda: 0 Note Initiated On: 08/09/2011 8:56 AM Ari Amanda MD DIGESTIVE CARE Final Result GI ([facility]OVATION) [place], [place] from Last 3 Months or Most Recently Relevant to Health Maintenance Insurance [facility] [place] [address] MEDICARE Advance Directives * Full Code (Latest Code Status on File) Date Activated Date Inactivated Comments 10/24/2014 4:56 AM 10/26/2014 2:53 PM * Full Code Date Activated Date Inactivated Comments 10/03/2014 12:15 PM 10/06/2014 1:15 PM * Full Code Date Activated Date Inactivated Comments 04/22/2014 8:28 PM 04/28/2014 4:20 PM Care Teams Oncologist Relationship Specialty Start Date End Date Kat Fleming MD [address] [place] [address] PCP - General 01/29/06
--- OUTSIDE RECORDS SUMMARY | 2024-07-26 12:50 | XMS_ITS | Encounter Summary ---
Author Organization [facility] Address [address] [place] [address] Care Team Providers Care Lithographic General Worker Name Role Phone Gaby Fleming MD Primary Care Provider [phone] Encounter Details Date Type Department Care Team (Late st Contact Info) Description 06/30/2014 Outside Hospital External to [facility] Provider DISCHARGE SUMMARY Social History Tobacco Use [...] on filedocumented in this encounter Care Teams Lithographic General Worker Relationship Specialty Start Date End Date Gaby Fleming MD [address] [place] [address] PCP - General 01/29/06 documented as of this encounter
--- OUTSIDE RECORDS SUMMARY | 2024-07-26 12:50 | XMS_ITS | Encounter Summary ---
Author Organization [facility] Address [address] [place] [address] Care Team Providers Care Flanging Machine Operator Name Role Phone Gaby Fleming MD Primary Care Provider [phone] Encounter Details Date Type Department Care Team [...] on filedocumented in this encounter Care Teams Flanging Machine Operator Relationship Specialty Start Date End Date Gaby Fleming MD [address] [place] [address] PCP - General 01/29/06 documented as of this encounter
--- OUTSIDE RECORDS SUMMARY | 2024-07-26 12:50 | XMS_ITS | Encounter Summary ---
Author Organization [facility] Address [address] [place] [address] Care Team Providers Care Campus Monitor Name Role Phone Gaby Fleming MD Primary Care Provider [phone] Encounter Details Date Type Department Care Team (Late st Contact Info) Description 07/17/2015 Correspondence None No Primary/Referring, Phy HME EQUIPMENT HAND ENGRAVER TICKET CPAP Social History Tobacco Use Types [...] on filedocumented in this encounter Care Teams Campus Monitor Relationship Specialty Start Date End Date Gaby Fleming MD [address] [place] [address] PCP - General 01/29/06 documented as of this encounter
--- OUTSIDE RECORDS SUMMARY | 2024-07-26 12:50 | XMS_ITS | Encounter Summary ---
Author Organization [facility] Address [address] [place] [address] Care Team Providers Care Core Composer Feeder Name Role Phone Gaby Fleming MD Primary Care Provider [phone] Encounter Details Date Type Department Care Team (Late st Contact Info) Description 03/27/2015 Correspondence None No Primary/Referring, Phy E EQUIPMENT CHIEF OPHTHALMIC TECHNICIAN TICKET Social History Tobacco Use Types [...] on filedocumented in this encounter Care Teams Core Composer Feeder Relationship Specialty Start Date End Date Gaby Fleming MD [address] [place] [address] PCP - General 01/29/06 documented as of this encounter
--- OUTSIDE RECORDS SUMMARY | 2024-07-26 12:50 | XMS_ITS | Encounter Summary ---
Author Organization [facility] Address [address] [place] [address] Care Team Providers Care Diagrammer Name Role Phone Gaby Fleming MD Primary Care Provider [phone] Encounter Details Date Type Department Care Team (Latest Contact Info) Description 08/15/1994 Orders Only Myrna Armas [address] [address] Social History Tobacco Use Types Packs/Day Years [...] on filedocumented in this encounter Care Teams Diagrammer Relationship Specialty Start Date End Date Gaby Fleming MD [address] [place] [address] PCP - General 01/29/06 documented as of this encounter
--- OUTSIDE RECORDS SUMMARY | 2024-07-26 12:50 | XMS_ITS | Encounter Summary ---
Author Organization [facility] Address [address] [place] [address] Care Team Providers Care Cad Librarian Name Role Phone Gaby Fleming MD Primary Care Provider [phone] Encounter Details Date Type Department Care Team (Late st Contact Info) Description 07/31/2015 Correspondence External to External, [place] [address] LETTER SUCCESSFULL COMPLETED DBT TREATMENT Social History [...] on filedocumented in this encounter Care Teams Cad Librarian Relationship Specialty Start Date End Date Gaby Fleming MD [address] [place] [address] PCP - General 01/29/06 documented as of this encounter
--- OUTSIDE RECORDS SUMMARY | 2024-07-26 12:50 | XMS_ITS | Encounter Summary ---
Author Organization [facility] Address [address] [place] [address] Care Team Providers Care Copper Miner Blasting Name Role Phone Gaby Fleming MD Primary Care Provider [phone] Encounter Details Date Type Department Care Team [...] on filedocumented in this encounter Care Teams Copper Miner Blasting Relationship Specialty Start Date End Date Gaby Fleming MD [address] [place] [address] PCP - General 01/29/06 documented as of this encounter
--- OUTSIDE RECORDS SUMMARY | 2024-07-26 12:50 | XMS_ITS | Encounter Summary ---
Author Organization [facility] Address [address] [place] [address] Care Team Providers Care Psychiatry Adult Physician Name Role Phone Gaby Fleming MD Primary Care Provider [phone] Encounter Details Date Type Department Care Team [...] on filedocumented in this encounter Care Teams Psychiatry Adult Physician Relationship Specialty Start Date End Date Gaby Fleming MD [address] [place] [address] PCP - General 01/29/06 documented as of this encounter
--- OUTSIDE RECORDS SUMMARY | 2024-07-26 12:50 | XMS_ITS | Encounter Summary ---
Author Organization [facility] Address [address] [place] [address] Care Team Providers Care Outpatient Receptionist Name Role Phone Gaby Fleming MD Primary Care Provider [phone] Encounter Details Date Type Department Care Team (Late st Contact Info) Description 09/18/2016 Correspondence [facility] [address] [facility] [place], [place] [id number] Jason Barrett MD [address] [place], [place] [id number] [facility] Social History Tobacco [...] on filedocumented in this encounter Care Teams Outpatient Receptionist Relationship Specialty Start Date End Date Gaby Fleming MD [address] [place] [address] PCP - General 01/29/06 documented as of this encounter
--- OUTSIDE RECORDS SUMMARY | 2024-07-26 12:50 | XMS_ITS | Encounter Summary ---
Author Organization [facility] Address [address] [place] [address] Care Team Providers Care Certified Master Safecracker Name Role Phone Gaby Fleming MD Primary Care Provider [phone] Encounter Details Date Type Department Care Team (Late st Contact Info) Description 03/28/2015 Correspondence [facility] [address] [place] [address] Gaby Fleming MD [address] [facility] [place] [address] DME EQUIPMENT PROOF OF DELIVERY Social [...] on filedocumented in this encounter Care Teams Certified Master Safecracker Relationship Specialty Start Date End Date Gaby Fleming MD [address] [facility] [place] [address] PCP - General 01/29/06 documented as of this encounter
--- OUTSIDE RECORDS SUMMARY | 2024-07-26 12:50 | XMS_ITS | Encounter Summary ---
Author Organization [facility] Address [address] [place] [address] Care Team Providers Care Lift Operator Name Role Phone Gaby Fleming MD Primary Care Provider [phone] Encounter Details Date Type Department Care Team (Latest Contact Info) Description 08/19/1994 Orders Only Myrna Armas [address] [address] Social History Tobacco Use Types Packs/Day Years [...] on filedocumented in this encounter Care Teams Lift Operator Relationship Specialty Start Date End Date Gaby Fleming MD [address] [place] [address] PCP - General 01/29/06 documented as of this encounter
--- NOTE | 2024-07-26 13:13 | CRLHL7_ITS ---
For Patients: As a result of the Cures Act, medical imaging exams and procedure reports are released immediately into your electronic medical record. You may view this report before your referring provider. If you have questions, please contact your health care provider. INDICATION: Cough TECHNIQUE: Chest radiograph 2 views COMPARISON: 06/25/2024 FINDINGS: Mediastinum: The mediastinum is normal in appearance. The heart silhouette is normal in size and morphology. Moderate elevation of the right hemidiaphragm is noted without change. Lung: Both lungs are unremarkable in appearance with small lung volumes. No sign of pleural effusion seen. No pneumothorax is identified. Bone and Soft tissue: Unremarkable for age. A loop recorder is seen over the left anterior chest wall. IMPRESSION: 1. No acute cardiopulmonary disease is seen. Dictated by Derrick Joiner MD @ 07/26/2024 2:30:15 PM Dictated by: Derrick Joiner MD @ 07/26/2024 14:30:19 (Electronically Signed)
--- NOTE | 2024-07-26 13:24 | ED_ITS ---
HPI - Nausea/Vomiting/Diarrhea General Date Seen: 07/26/24 Chief complaint: Nausea/Vomiting Stated complaint: Nausea, weakness Time Seen by Provider: 07/26/24 12:54 Source: patient, EMS, RN notes reviewed and old records reviewed Mode of arrival: EMS Limitations: no limitations History of Present Illness HPI Narrative: Patient is very nice 69-year-old female who presents here by EMS with a fever at home 102? weakness, her daughter was sick with influenza and now she feels she has is she has a cough, sore throat, and overall weakness, she does suffer from POTS, in felt very lightheaded on the toilet when she sat up, she was given Zofran 4 mg sublingual EN route, history of previous gastric surgery [facility] [place]. She tells me she has been taking her extra doses of st eroids when she is sick. She is throwing up 2-3 times today with 2-3 times of loose stools, no blood in the vomitus or stool, no darkening color to this. Suggest a GI bleed. MD elicited complaint: nausea, vomiting and diarrhea Associated symptoms: myalgias, cough, fever/chills, loss of appetite, nausea/vomiting, weakness and decreased urine output Treatment prior to arrival: other (Sublingual nitroglycerin given by EMS.) Related Data Home Medications ?Medication ?Instructions ?Recorded ?Confirmed loperamide 2 mg capsule 4 mg PO QID PRN 10/02/21 06/25/24 meclizine 25 mg tablet 25 mg PO BID PRN 10/02/21 07/26/24 montelukast 10 mg tablet 10 mg PO HS 10/02/21 06/25/24 albuterol sulfate 90 mcg/actuation 1 puff inhalation Q4H PRN 06/07/22 07/26/24 aerosol inhaler cevimeline 30 mg capsule 1 cap PO BID 06/07/22 07/26/24 lorazepam 0.5 mg tablet 0.5 mg PO DAILY PRN 06/07/22 07/26/24 dicyclomine 10 mg capsule 10 mg PO Q6H PRN cramps 08/10/22 07/26/24 ondansetron HCl 8 mg tablet 8 mg PO TID PRN 08/10/22 07/26/24 venlafaxine 150 mg 300 mg PO DAILY 08/10/22 07/26/24 capsule,extended release 24 hr dextroamphetamine-amphetamine ER 1 cap PO DAILY 09/20/22 07/26/24 10 mg 24hr capsule,extend release divalproex 500 mg tablet,delayed 500 mg PO BID 09/20/22 07/26/24 release doxepin 10 mg capsule 10 mg PO DAILY 09/20/22 07/26/24 famotidine 40 mg tablet 40 mg PO QPM 06/17/24 07/26/24 fluticasone 500 mcg-salmeterol 50 1 inh inhalation Q12H 06/17/24 07/26/24 mcg/dose blistr powdr for inhalation guanfacine 1 mg tablet 1 mg PO QPM 06/17/24 07/26/24 hydrocortisone 5 mg tablet 5 mg PO DAILY 06/17/24 07/26/24 omeprazole 40 mg capsule,delayed 40 mg PO Q1D 06/17/24 07/26/24 release Previous Rx's ?Medication ?Instructions ?Recorded fludrocortisone 0.1 mg tablet 0.1 mg PO DAILY #30 tabs 08/14/22 midodrine 5 mg tablet 5 mg PO BID #60 tabs 08/14/22 diphenoxylate-atropine 2.5 1 tab PO DAILY #10 tabs 06/15/23 mg-0.025 mg tablet (Lomotil) Allergies Allergy/AdvReac Type Severity Reaction Status Date / Time nitrofurantoin Allergy Unknown Verified 06/25/24 10:04 Iodinated Contrast Media AdvReac Rash Verified 07/26/24 12:57 Sulfa (Sulfonamide AdvReac Rash Verified 07/26/24 12:57 Antibiotics) hand manager of pmo Allergy Severe Anaphylaxis Uncoded 06/17/24 12:31 Ioxaglate sodium Allergy Unknown Uncoded 06/17/24 12:31 Review of Systems Status of ROS: Reports: 10 or more systems reviewed and unremarkable except as noted in History and below [facility] Medical History Tear of medial meniscus of right knee ?S83.241A - Other tear of medial meniscus, current injury, right knee, initial encounter (ICD-10) Osteoarthritis of right knee ?M17.11 - Unilateral primary osteoarthritis, right knee (ICD-10) Irritable bowel syndrome ?K58.9 - Irritable bowel syndrome without diarrhea (ICD-10) Physical deconditioning ?R53.81 - Other malaise (ICD-10) Chronic diarrhea ?K52.9 - Noninfective gastroenteritis and colitis, unspecified (ICD-10) Anxiety ?F41.9 - Anxiety disorder, unspecified (ICD-10) History of prediabetes ?Z87.898 - Personal history of other specified conditions (ICD-10) History of major depression ?Z86.59 - Personal history of other mental and behavioral disorders (ICD-10) Surgical History S/P ORIF (open reduction internal fixation) fracture (08/10/22) ?Z98.890 - Other specified postprocedural states (ICD-10) ?Z87.81 - Personal history of (healed) traumatic fracture (ICD-10) History of loop recorder (03/17/19) ?Z98.890 - Other specified postprocedural states (ICD-10) History of partial thyroidectomy (1999) ?E89.0 - Postprocedural hypothyroidism (ICD-10) History of cholecystectomy (1983) ?Z90.49 - Acquired absence of other specified parts of digestive tract (ICD- 10) History of bladder suspension procedure (2014) ?Z98.890 - Other specified postprocedural states (ICD-10) ?Z87.448 - Personal history of other diseases of urinary system (ICD-10) Family History Mother Alcoholism Social History Narrative: Nonsmoker. Does not exercise. . 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 5 adult children. She lives with her daughter who has mental disability-?Autism Highest level of school completed/degree received: Master's degree Smoking Status: Never smoker Do you use any of these nicotine containing products: None Second hand tobacco smoke exposure: No How often do you have a drink containing alcohol: never AUDIT-C Alcohol total score: 0 Non-prescribed substance use: denies use Caffeine: No service: No Exam Narrative: Exam Narrative: On examination she appears weak, in room 3. Alert oriented nontoxic however. Pupils equal round reactive to light there is no nystagmus or TMs are normal oropharynx is dry, no evidence of any erythema tonsillar swelling, neck is supple full range of motion with no meningismus no lymphadenopathy anterior posterior chains chest is good air entry bilateral with no wheezing crackles noted, heart sounds no clicks murmurs or gallops her abdomen shows scars from right upper quadrant open cholecystectomy, no tenderness to palpation bowel sounds are normal. No masses noted , no redness swelling, her back is normal palpates normal both thoracic and lumbar, no petechiae no edema noted moves all extremities independently and well. Const: Vital Signs, click to edit/add: Vital Signs - 24 hr 07/26/24 12:53 07/26/24 13:30 07/26/24 13:32 Temperature 96.3 F L Pulse Rate 83 84 Pulse Rate [Pulse Oximeter] 88 Respiratory Rate 20 27 H Blood Pressure 99/41 L Blood Pressure [Ri ght Upper Arm] 132/84 Pulse Oximetry 95 96 91 Oxygen Delivery Me thod Room Air 07/26/24 13:40 07/26/24 13:45 07/26/24 13:46 Temperature Pulse Rate 80 Pulse Rate [Pulse Oximeter] Respiratory Rate 20 12 Blood Pressure Blood Pressure [Ri ght Upper Arm] Pulse Oximetry 93 93 Oxygen Delivery Me thod 07/26/24 13:50 Temperature Pulse Rate Pulse Rate [Pulse Oximeter] Respiratory Rate 18 Blood Pressure Blood Pressure [Ri ght Upper Arm] Pulse Oximetry 93 Oxygen Delivery Me thod Documenting provider has reviewed patient's vital signs: yes Course Reevaluation(s) Time of Reevaluation #1: 15:39 Reevaluation #1: Reviewed with the patient the labs look good, no acute finding seen. Recommend observation, she was comfortable this plan, feels better after fluids and vital signs all improved. Vital Signs Vital signs: Initial Vital Signs Temperature 96.3 F L 07/26/24 12:53 Temperature Source Temporal Artery Scan 07/26/24 12:53 Pulse Rate 88 07/26/24 12:53 Respiratory Rate 20 07/26/24 12:53 Blood Pressure 132/84 07/26/24 12:53 Blood Pressure Mean 100 07/26/24 12:53 Blood Pressure Position Sitting 07/26/24 12:53 Pulse Oximetry 95 07/26/24 12:53 Oxygen Delivery Method Room Air 07/26/24 12:53 Vital Signs Temperature 96.3 F L 07/26/24 12:53 Pulse Rate 88 07/26/24 12:53 Respiratory Rate 20 07/26/24 12:53 Blood Pressure 132/84 07/26/24 12:53 Pulse Oximetry 95 07/26/24 12:53 Oxygen Delivery Method Room Air 07/26/24 12:53 Temperature 96.3 F L 07/26/24 12:53 Pulse Rate 80 07/26/24 13:45 Respiratory Rate 18 07/26/24 13:50 Blood Pressure 99/41 L 07/26/24 13:32 Pulse Oximetry 93 07/26/24 13:50 Oxygen Delivery Method Room Air 07/26/24 12:53 Medications Administered Medications: Generic Name Dose Route Start Last Admin Trade Name Freq PRN Reason Stop Dose Admin Sodium Chloride 1,000 mls @ 1,000 mls/hr 07/26/24 14:45 07/26/24 14:42 0.9 % Sodium Chloride 1000 Ml IV 07/26/24 15:44 1,000 mls/hr .Q1H ELIZABETH Administration Discontinued Medications Generic Name Dose Route Start Last Admin Trade Name Freq PRN Reason Stop Dose Admin Hydrocortisone Sodium Succinate 100 mg 07/26/24 13:52 07/26/24 14:42 Hydrocortisone Sod Succinate 50 Mg/Ml Inj IVP 07/26/24 13:53 100 mg ONCE ONE Administration Sodium Chloride 1,000 mls @ 1,000 mls/hr 07/26/24 13:15 07/26/24 14:41 0.9 % Sodium Chloride 1000 Ml IV 07/26/24 14:14 Infused .Q1H ELIZABETH Infusion MDM - Nausea/Vomiting/Diarrhea MDM Narrative Medical decision making narrative: Life-threatening differential diagnosis considered include stroke, coronary a rtery disease, pneumonia, and heart failure. Other differential diagnosis include but are not limited to electrolyte imbalances, anemia, medication reactions, and urinary tract infection Medical Records Attestation: I reviewed the patient's medical records. Lab Data Attestation: I reviewed the patient's lab results. Labs: Lab Results 07/26/24 07/26/24 07/26/24 Range/Units 13:13 13:25 13:54 WBC 9.31 (4.50-11.00) K/uL RBC 3.95 L (4.00-5.20) m/uL Hgb 12.1 (12.0-16.0) gm/dL Hct 37.1 (33.0-51.0) % MCV 94 (80-100) fL MCH 31 (26-34) pg MCHC 33 (32-36) gm/dL RDW Coeff of Quirino 12.8 (11.5-15.5) % Plt Count 237 (140-440) K/uL Neut % (Auto) 73.7 H (42.0-72.0) % Lymph % (Auto) 9.2 L (20-44) % Calloway % (Auto) 15.6 H (0.0-11.0) % Eos % (Auto) 0.5 (0.0-7.0) % Baso % (Auto) 0.4 (0.0-3.0) % Neut # (Auto) 6.90 (1.7-7.0) K/uL Lymph # (Auto) 0.90 (0.90-2.90) K/uL Calloway # (Auto) 1.50 H (0.00-0.90) K/UL Eos # (Auto) 0.05 (0.00-0.50) K/uL Baso # (Auto) 0.04 (0.00-0.30) K/uL Abs Immat Gran (auto) 0.06 (0.00-0.30) K/uL Imm/Tot Granulo (auto) 0.6 % INR 1.02 (0.91-1.10) APTT 24 (23-33) Seconds Sodium 135 (135-149) mmol/L Potassium 3.9 (3.6-5.1) mmol/L Chloride 100 (96-114) mmol/L Carbon Dioxide 27 (20-32) mmol/L Anion Gap 8 (7-15) mEq/L BUN 17 (7-30) mg/dL Creatinine 0.7 (0.5-1.5) mg/dL Estimated Creat Clear 43.18 Estimated GFR 95 ml/min Glucose 100 (60-115) mg/dL Lactate 1.4 (0.5-1.9) mmol/L Calcium 8.7 (8.4-10.6) mg/dL C-Reactive Protein 0.8 (0.5-1.0) mg/dL SARS-CoV-2 (PCR) Negative SARS-CoV-2 (Negative) Influenza Type A (PCR) Negative PCR FLU A (Negative) Influenza Type B (PCR) Negative PCR FLU B (Negative) RSV (PCR) Negative PCR RSV (Negative) POC Troponin I 0.00 L (0.01-0.04) ng/ml Discharge Plan Discharge Clinical Impression: Gastroenteritis Patient Disposition: Home, Self-Care Condition: Improved Instructions: Acute Nausea and Vomiting (DC), Acute Diarrhea (ED), Enteritis (ED) Additional Instructions: Home rest continue with current plan of fluids, Tylenol for the discomfort follow up here if increasing abdominal pain fevers chills sweats or other issue. Activity Level: Light activity Discharge Diet: Clear Liquid Prescriptions: No Action montelukast 10 mg tablet 10 mg PO HS loperamide 2 mg capsule 4 mg PO QID PRN meclizine 25 mg tablet 25 mg PO BID PRN divalproex 500 mg tablet,delayed release (DR/EC) 500 mg PO BID doxepin 10 mg capsule 10 mg PO DAILY dextroamphetamine-amphetamine 10 mg capsule,extended release 24hr 1 cap PO DAILY hydrocortisone 5 mg tablet 5 mg PO DAILY guanfacine 1 mg tablet 1 mg PO QPM famotidine 40 mg tablet 40 mg PO QPM fluticasone propion-salmeterol 500-50 mcg/dose blister with device 1 inh inhalation Q12H Patient Comments: [NO ORIGINAL SIG] omeprazole 40 mg capsule,delayed release(DR/EC) 40 mg PO Q1D albuterol sulfate 90 mcg/actuation HFA aerosol inhaler 1 puff INHALATION Q4H PRN Patient Comments: PLEASE SEE ATTACHED FOR DETAILED DIRECTIONS lorazepam 0.5 mg tablet 0.5 mg PO DAILY PRN cevimeline 30 mg capsule 1 cap PO BID Patient Comments: can use 1 cap at noon prn venlafaxine 150 mg capsule,extended release 24hr 300 mg PO DAILY dicyclomine 10 mg capsule 10 mg PO Q6H PRN (Reason: cramps) ondansetron HCl 8 mg tablet 8 mg PO TID PRN midodrine 5 mg Tablet 5 mg PO BID Qty: 60 0RF fludrocortisone 0.1 mg Tablet 0.1 mg PO DAILY Qty: 30 0RF diphenoxylate-atropine [Lomotil] 2.5-0.025 mg tablet 1 tab PO DAILY Qty: 10 0RF Follow Up/Referrals: Angi Estevez DO [Primary Care Provider] - Stand Alone Forms: Videostirth Info Instructions
[2024-07-26] MEDS: 0.9 % SODIUM CHLORIDE 1000 ml 1,000 ML IV ×2 (13:43→14:42)
[2024-07-26 14:09] LABS: Lactate* 1.4 mmol/L (0.5-1.9)
[2024-07-26 14:11] LABS: PCR FLU A Negative PCR FLU A (Negative); PCR FLU B Negative PCR FLU B (Negative); PCR RSV Negative PCR RSV (Negative); SARS PCR* Negative SARS-CoV-2 (Negative)
[2024-07-26 14:12] LABS: Basophils Absolute Auto 0.04 K/uL (0.00-0.30); Basophils Percent Auto 0.4 % (0.0-3.0); Eosinophils Absolute Auto 0.05 K/uL (0.00-0.50); Eosinophils Percent Auto 0.5 % (0.0-7.0); Hematocrit 37.1 % (33.0-51.0); Hemoglobin* 12.1 gm/dL (12.0-16.0); Immature Granulocytes Abs Auto 0.06 K/uL (0.00-0.30); Immature Granulocytes Pct Auto 0.6 %; Lymphocytes Percent Auto 9.2 % (20-44); Mean Corpuscular HGB Conc 33 gm/dL (32-36); Mean Corpuscular Hemoglobin 31 pg (26-34); Mean Corpuscular Volume 94 fL (80-100); Monocytes Percent Auto 15.6 % (0.0-11.0); Neutrophils Percent Auto 73.7 % (42.0-72.0); Platelet Count* 237 K/uL (140-440); RDW Coefficient of Variation % 12.8 % (11.5-15.5); Red Blood Count 3.95 m/uL (4.00-5.20); White Blood Count* 9.31 K/uL (4.50-11.00)
[2024-07-26 14:18] LABS: Slide Review Reflex No
[2024-07-26 14:29] LABS: Chloride* 100 mmol/L (96-114)
[2024-07-26 14:30] LABS: Potassium* 3.9 mmol/L (3.6-5.1); Sodium* 135 mmol/L (135-149)
[2024-07-26 14:33] LABS: Anion Gap 8 mEq/L (7-15); Blood Urea Nitrogen* 17 mg/dL (7-30); Calcium* 8.7 mg/dL (8.4-10.6); Carbon Dioxide* 27 mmol/L (20-32); Creatinine* 0.7 mg/dL (0.5-1.5); Est. Creatinine Clearance* 43.18; Estimated Glomerular Filt Rate 95 ml/min; Glucose* 100 mg/dL (60-115)
[2024-07-26 14:36] LABS: C Reactive Protein* 0.8 mg/dL (0.5-1.0)
[2024-07-26 14:37] LABS: INR 1.02 (0.91-1.10); Prothrombin Time 14.2 Seconds
[2024-07-26 14:38] LABS: Partial Thromboplastin Time* 24 Seconds (23-33)
[2024-07-26] MEDS: HYDROCORTISONE SOD SUCCINATE 50 MG/ML inj 100 MG IVP (14:42)
[2024-07-26] MEDS: LORazepam 0.5 MG TABLET PO (16:09)
== END 2024-07-26 16:47 | disposition home or self-care (01) ==
PROVIDERS: Emergency Provider Family Medicine; PCP Family Medicine
DX: K52.9 Noninfective gastroenteritis and colitis, unspecified (principal); R94.31 Abnormal electrocardiogram [ECG] [EKG]; Z86.2 Personal history of diseases of the blood and blood-forming organs and certain disorders involving the immune mechanism
CPT/HCPCS: 36415; 71046; 80048; 83605; 84484; 85025; 85610; 85730; 86140; 87040; 87631; 93005; 94761; 96361; 96374; 96375; 99284; 99285; A9270; J1720; J7030

== ENCOUNTER 2024-07-28 08:48 | Outpatient (CLI) | payer OTHER, SELFPAY | END 2024-07-28 08:49 | disposition home or self-care (01) | PROVIDERS: PCP Family Medicine; Visit Provider Family Medicine | DX: R53.1 Weakness (principal); R53.81 Other malaise; R05.9 Cough, unspecified | CPT/HCPCS: A0425; A0427 ==

== ENCOUNTER 2024-07-28 09:25 | Inpatient (IN) | payer OTHER, SELFPAY ==
[2024-07-28] VITALS (36 sets, daily range): BP systolic 87–117; BP diastolic 35–107; PULSE 71–104; RESP 14–18; TEMP 36.6–37.3; O2SAT 90–95; BMI 27.4; BMI 36.5
--- OUTSIDE RECORDS SUMMARY | 2024-07-28 09:26 | XMS_ITS | Encounter Summary ---
Author Organization [facility] Address [address] [place] [address] Care Team Providers Care Phytopathologist Name Role Phone Gaby Fleming MD Primary Care Provider [phone] Encounter Details Date Type Department Care Team (Latest Contact Info) Description 06/23/1997 Orders Only Terese Panda MD [facility] [place] [address] Social History Tobacco Use Types Packs/Day Years [...] on filedocumented in this encounter Care Teams Phytopathologist Relationship Specialty Start Date End Date Gaby Fleming MD [address] [place] [address] PCP - General 01/29/06 documented as of this encounter
--- OUTSIDE RECORDS SUMMARY | 2024-07-28 09:26 | XMS_ITS | Encounter Summary ---
Author Organization [facility] Address [address] [place] [address] Care Team Providers Care Ranch Supervisor Name Role Phone Gaby Fleming MD Primary Care Provider [phone] Encounter Details Date Type Department Care Team (Latest Contact Info) Description 06/09/2014 Consent for Procedure/Treatme [facility] [address] [place] [address] METHACHOLINE CHALLENGE TEST Social History Tobacco Use [...] on filedocumented in this encounter Care Teams Ranch Supervisor Relationship Specialty Start Date End Date Gaby Fleming MD [address] [place] [address] PCP - General 01/29/06 documented as of this encounter
--- OUTSIDE RECORDS SUMMARY | 2024-07-28 09:26 | XMS_ITS | Encounter Summary ---
Author [facility] Address [address] [address] Care Team Providers Care Cable Worker Helper Name Role Phone Gaby Fleming MD Primary Care Provider [phone] Encounter Details Date Type Department Care Team (Late st Contact Info) Description 05/19/2014 Scanned History [facility] Psychiatry [address] [place] [address] Jaycob Ayala MD [facility]-DISCHARGE PAPERWORK Social History [...] on filedocumented in this encounter Care Teams Cable Worker Helper Relationship Specialty Start Date End Date Gaby Fleming MD [address] [place] [address] PCP - General 01/29/06 documented as of this encounter
--- OUTSIDE RECORDS SUMMARY | 2024-07-28 09:26 | XMS_ITS | Encounter Summary ---
Author Organization [facility] Address [address] [place] [address] Care Team Providers Care Saturation Equipment Operator Name Role Phone Gaby Fleming MD Primary Care Provider [phone] Encounter Details Date Type Department Care Team (Latest Contact Info) Description 06/06/1995 Orders Only [place] [address] Social History Tobacco Use Types Packs/Day Years [...] on filedocumented in this encounter Care Teams Saturation Equipment Operator Relationship Specialty Start Date End Date Gaby Fleming MD [address] [place] [address] PCP - General 01/29/06 documented as of this encounter
--- OUTSIDE RECORDS SUMMARY | 2024-07-28 09:26 | XMS_ITS | Encounter Summary ---
Author Organization [facility] Address [address] [place] [address] Care Team Providers Care Principal Automation Engineer Name Role Phone Gaby Fleming MD Primary Care Provider [phone] Encounter Details Date Type Department Care Team (Latest Contact Info) Description 01/05/1998 Orders Only Arielle Caraballo, DO [address] [place] [address] Social History Tobacco Use Types Packs/Day Years [...] on filedocumented in this encounter Care Teams Principal Automation Engineer Relationship Specialty Start Date End Date Gaby Fleming MD [address] [place] [address] PCP - General 01/29/06 documented as of this encounter
--- OUTSIDE RECORDS SUMMARY | 2024-07-28 09:26 | XMS_ITS | Encounter Summary ---
Author Organization [facility] Address [address] [address] Care Team Providers Care Educational Assistant Name Role Phone Gaby Fleming MD Primary Care Provider [phone] Encounter Details Date Type Department Care Team (Late st Contact Info) Description 03/11/2014 Correspondence None No Primary/Referring, Phy EQUIPMENT CORONER'S JUROR TICKET Social History Tobacco Use Types Packs/Day [...] on filedocumented in this encounter Care Teams Educational Assistant Relationship Specialty Start Date End Date Gaby Fleming MD [address] [place] [address] PCP - General 01/29/06 documented as of this encounter
--- OUTSIDE RECORDS SUMMARY | 2024-07-28 09:26 | XMS_ITS | Encounter Summary ---
Author Organization [facility] Address [address] [place] [address] Care Team Providers Care Sanitary Landfill Operator Name Role Phone Gaby Fleming MD Primary Care Provider [phone] Encounter Details Date Type Department Care Team [...] on filedocumented in this encounter Care Teams Sanitary Landfill Operator Relationship Specialty Start Date End Date Gaby Fleming MD [address] [place] [address] PCP - General 01/29/06 documented as of this encounter
--- OUTSIDE RECORDS SUMMARY | 2024-07-28 09:26 | XMS_ITS | Encounter Summary ---
Author [facility] Address [address] [place] [address] Care Team Providers Care Console Attendant Name Role Phone Gaby Fleming MD Primary Care Provider [phone] Encounter Details Date Type Department Care Team [...] on filedocumented in this encounter Care Teams Console Attendant Relationship Specialty Start Date End Date Gaby Fleming MD [address] [place] [address] PCP - General 01/29/06 documented as of this encounter
--- OUTSIDE RECORDS SUMMARY | 2024-07-28 09:26 | XMS_ITS | Encounter Summary ---
Author Organization [facility] Address [address] [place] [address] Care Team Providers Care Metal Base Blocker Name Role Phone None Reported, Pcp Primary Care Provider Unavail able Reason for Referral * Outpatient (Routine) - Closed Specialty Diagnoses / Procedures Referred By Horacio marino Referred To Contact Neurology Diagnoses Demyelinating Disease Central Nervous System (HCC) Gagan Vera M.D. Phone: tel: fax: [facility] Referral ID Status Reason Start Date Expiration Date Visits Re quested Visits Authorized [id number] Closed 07/30/2018 07/30/2019 1 1 Encounter Details Date Type Department Care Team (Latest Contact Info) Description 07/30/2018 [facility] [address] [place] [address] Gagan Vera M.D. [address] [place] [address] Demyelinating Disease Central Nervous System (HCC) (Primary Dx) Social History Tobacco Use Types Packs/Day Years Used Date Smoking Tobacco: Never Assessed Comments Unknown Sex and Gender Information Value Date Recorded Sex Assigned at Female 01/02/2021 11:08 AM CDT Legal Sex Female 10:48 AM CDT Gender Identity Female 03/11/2019 12:39 PM MULTI PUNCH OPERATOR Sexual Orientation Straight 03/11/2019 12 :39 PM MULTI PUNCH OPERATOR documented as of this encounter Plan of [...] Pending 04/12/2021 04/12/2021 04/13/2021 6 :18 PM MULTI PUNCH OPERATOR documented as of this encounter Care Teams Metal Base Blocker Relationship Specialty Start Date End Date None Reported, Pcp PCP - General Family Medicine 01/26/24 documented as of this encounter
--- OUTSIDE RECORDS SUMMARY | 2024-07-28 09:26 | XMS_ITS | Encounter Summary ---
Author Organization [facility] Address [address] [place] [address] Care Team Providers Care Tool And Cutter Grinder Name Role Phone Gaby Fleming MD Primary Care Provider [phone] Encounter Details Date Type Department Care Team (Late st Contact Info) Description 08/09/2011 Consent for Procedure/Treatme [facility] Department INFORMED CONSENT RECORD Social History [...] as of this encounter Progress Notes * [facility], PROVIDER - 08/09/2011 12:00 AM CDT documented in this encounter Plan of Treatment Not on file documented as of this encounter Visit Diagnoses Not on filedocumented in this encounter Care Teams Tool And Cutter Grinder Relationship Specialty Start Date End Date Gaby Fleming MD [address] [place] [address] PCP - General 01/29/06 documented as of this encounter
--- OUTSIDE RECORDS SUMMARY | 2024-07-28 09:26 | XMS_ITS | Encounter Summary ---
Author Organization [facility] Address [address] [place] [address] Care Team Providers Care Scaleman Name Role Phone Gaby Fleming MD Primary Care Provider [phone] Encounter Details Date Type Department Care Team (Late st Contact Info) Description 02/22/2014 Scanned History External to External, [place] [address] [facility] Social History Tobacco Use Types Packs/Day Years [...] on filedocumented in this encounter Care Teams Scaleman Relationship Specialty Start Date End Date Gaby Fleming MD [address] [place] [address] PCP - General 01/29/06 documented as of this encounter
--- OUTSIDE RECORDS SUMMARY | 2024-07-28 09:26 | XMS_ITS | Encounter Summary ---
Author Organization [facility] Address [address] [place] [address] Care Team Providers Care Delivery Motorcycle Driver Name Role Phone Gaby Fleming MD Primary Care Provider [phone] Encounter Details Date Type Department Care Team (Latest Contact Info) Description 05/25/1998 Orders Only Karan Garcia MD [address] [place] [address] Social History Tobacco Use Types Packs/Day Years [...] on filedocumented in this encounter Care Teams Delivery Motorcycle Driver Relationship Specialty Start Date End Date Gaby Fleming MD [address] [place] [address] PCP - General 01/29/06 documented as of this encounter
--- OUTSIDE RECORDS SUMMARY | 2024-07-28 09:26 | XMS_ITS | Encounter Summary ---
Author Organization [facility] Address [address] [place] [address] Care Team Providers Care Aircraft Seat Upholsterer Name Role Phone Gaby Fleming MD Primary Care Provider [phone] Encounter Details Date Type Department Care Team [...] filedocumented in this encounter Care Teams Aircraft Seat Upholsterer Relationship Specialty Start Date End Date Gaby Fleming MD [address] [place] [address] PCP - General 01/29/06 documented as of this encounter
--- OUTSIDE RECORDS SUMMARY | 2024-07-28 09:26 | XMS_ITS | Encounter Summary ---
Author Organization [facility] Address [address] [place] [address] Care Team Providers Care Supervisor Instrument Mechanics Name Role Phone Gaby Fleming MD Primary Care Provider [phone] Encounter Details Date Type Department Care Team (Latest Contact Info) Description 06/30/1997 Orders Only Arielle Caraballo, DO [address] [place] [address] Social History Tobacco Use Types Packs/Day Years [...] filedocumented in this encounter Care Teams Supervisor Instrument Mechanics Relationship Specialty Start Date End Date Gaby Fleming MD [address] [place] [address] PCP - General 01/29/06 documented as of this encounter
--- OUTSIDE RECORDS SUMMARY | 2024-07-28 09:26 | XMS_ITS | Encounter Summary ---
Author [facility] Address [address] [place] [address] Care Team Providers Care Account Installation Specialist Name Role Phone Gaby Fleming MD Primary Care Provider [phone] Encounter Details Date Type Department Care Team [...] on filedocumented in this encounter Care Teams Account Installation Specialist Relationship Specialty Start Date End Date Gaby Fleming MD [address] [place] [address] PCP - General 01/29/06 documented as of this encounter
--- OUTSIDE RECORDS SUMMARY | 2024-07-28 09:26 | XMS_ITS | Encounter Summary ---
Author Organization [facility] Address [address] [place] [address] Care Team Providers Care Data Technician Name Role Phone Gaby Fleming MD Primary Care Provider [phone] Encounter Details Date Type Department Care Team [...] filedocumented in this encounter Care Teams Data Technician Relationship Specialty Start Date End Date Gaby Fleming MD [address] [place] [address] PCP - General 01/29/06 documented as of this encounter
--- OUTSIDE RECORDS SUMMARY | 2024-07-28 09:26 | XMS_ITS | Encounter Summary ---
Author Organization [facility] Address [address] [place] [address] Care Team Providers Care Paper Core Machine Operator Name Role Phone Gaby Fleming MD Primary Care Provider [phone] Encounter Details Date Type Department Care Team (Late st Contact Info) Description 05/13/2014 Emergency Room External to [facility], Provider EAR PAIN Social History [...] on filedocumented in this encounter Care Teams Paper Core Machine Operator Relationship Specialty Start Date End Date Gaby Fleming MD [address] [place] [address] PCP - General 01/29/06 documented as of this encounter
--- OUTSIDE RECORDS SUMMARY | 2024-07-28 09:26 | XMS_ITS | Encounter Summary ---
Author Organization [facility] Address [address] [place] [address] Care Team Providers Care Insurance Sales Specialist Name Role Phone Gaby Fleming MD Primary Care Provider [phone] Encounter Details Date Type Department Care Team (Latest Contact Info) Description 10/17/1996 Orders Only Rosetta Gramajo MD [address] [place] [address] Social History Tobacco Use Types Packs/Day Years [...] on filedocumented in this encounter Care Teams Insurance Sales Specialist Relationship Specialty Start Date End Date Gaby Fleming MD [address] [place] [address] PCP - General 01/29/06 documented as of this encounter
--- OUTSIDE RECORDS SUMMARY | 2024-07-28 09:26 | XMS_ITS ---
Author Organization [facility] Care Team Providers Care Publication Specialist Name Role Phone Melissa Chacko Unavailable Unavailable Lucila Herring Unavailable Unavailable Andrey Romano Unavailable Unavailable Allergies and adverse reactions Code CodeSystem Substance Reaction Severity StartDate Concern Status 123124681 SNOMED CT Sulfa Antibiotics Mild 08/14/2022 active SULFA Unknown 08/14/2022 active 7454 RXNORM Nitrofurantoin Unknown 08/14/2022 active IVP Dye Unknown 08/14/2022 active 5973 RXNORM Ioxaglate Unknown 08/14/2022 active Hand Bat Boy/Girl Anaphylaxis (code- 15711601, SNOMED CT) Severe 08/14/2022 active Contrast Moderate 08/14/2022 active Care Team Name Role Address Phone Organization Dates Andrey Romano PCP [facility] [address] [place] [address], [address], [place], [address], [place] (Office): [facility] 08/14/2022 - 09/05/2022 Melissa Chacko Attending Physician [facility], [facility] 08/14/2022 - 09/05/2022 Lucila Herring Attending Physician [address], [place], [address], [place] (Office): : [facility] 08/14/2022 - 09/05/2022 Immunizations Immunization Status Vaccine [...] completed tuberculin skin test; unspecified formulation lotNumber: [id number] expiry: 09/05/2024 Mfg: [employer] Given 0.1 ml Right Forearm intradermally Step 2 of Multi-step with next step required 98 CVX created date: 08/28/2022 consent date: 08/28/2022 administer ed date: 08/28/2022 Educated by Mary Dennis RN on 08/28/2022 TB 2 Step Mantoux Skin Test completed tuberculin skin test; unspecified formulation lotNumber: [id number] expiry: 09/05/2024 Mfg: [employer] Given 0.1 ml Right Forearm intradermally Step 1 of Multi-step with next step required 98 CVX created date: 08/14/2022 consent date: 08/14/2022 administer ed date: 08/14/2022 Educated by Mray Dennis RN on 08/14/2022 TDAP completed tetanus [...] date: 08/14/2022 administer ed date: 02/07/2012 PCV13, [id number] completed Pneumococcal conjugate vaccine 20-valent (PCV20), polysaccharide [id number] conjugate, adjuvant, preservative free 216 CVX created [...] free, 30 mcg/0.3mL dose, holli-sucrose formulation Mfg: [employer]on[employer] 217 CVX created date: 08/14/2022 administer ed date: 05/09/2020 COVID-19 Vaccine dose 3 completed unknown vaccine or immune globulin Mfg: [employer] 999 CVX created date: 08/14/2022 administer ed date: 01/01/2021 COVID-19 Vaccine dose 4 completed SARS-COV-2 (COVID-19) vaccine, mRNA, spike protein, LNP, preservative free, 30 mcg/0.3mL dose 208 CVX created date: 08/14/2022 administer ed date: 09/15/2021 COVID-19 Vaccine dose 5 completed SARS-COV-2 (COVID-19) vaccine, mRNA, spike protein, LNP, preservative free, 30 mcg/0.3mL dose Mfg: [employer]ponDirect 208 CVX created date: 08/14/2022 administer ed [...] AGE-RELATED OSTEOPOROSIS WITHOUT CURRENT PATHOLOGICAL FRACTURE 08/14/[address] active 2 ANEMIA, UNSPECIFIED 08/14/[address] active 3 ANXIETY DISORDER, UNSPECIFIED 08/14/[address] active 4 BORDERLINE PERSONALITY DISORDER 08/14/2022200042866098 SNOMED CT active 5 CONVERSION DISORDER WITH MIXED SYMPTOM PRESENTATION 08/14/[address] active 6 DEPENDENCE ON OTHER ENABLING MACHINES AND DEVICES 08/14/[address] active 7 FRACTURE OF UNSPECIFIED PART OF NECK OF RIGHT FEMUR, SUBSEQUENT ENCOUNTER FOR CLOSED FRACTURE WITH ROUTINE HEALING 08/14/[address] active 8 GASTRO-ESOPHAGEAL REFLUX DISEASE WITHOUT ESOPHAGITIS 08/14/[address] active 9 IRRITABLE BOWEL SYNDROME, UNSPECIFIED 08/14/[address] active 10 CORRECTION (CURRENT) USE OF ANTICOAGULANTS 08/14/[address] active 11 MAJOR DEPRESSIVE DISORDER, RECURRENT SEVERE WITHOUT PSYCHOTIC FEATURES 08/14/[address] active 12 NONINFECTIVE GASTROENTERITIS AND COLITIS, UNSPECIFIED 08/14/[address] active 13 OBESITY, UNSPECIFIED 08/14/[address] active 14 OBSTRUCTIVE SLEEP APNEA (ADULT) (PEDIATRIC) 08/14/[address] active 15 ORTHOSTATIC HYPOTENSION 08/14/[address] active 16 PERSONAL HISTORY OF OTHER MENTAL AND BEHAVIORAL DISORDERS 08/14/[address] active 17 POST-TRAUMATIC STRESS DISORDER, UNSPECIFIED 08/14/[address] active 18 UNSPECIFIED ASTHMA, UNCOMPLICATED 08/14/[address] active Reason for Referral No Reasons for Referral Entered Social History Social History Observation Description Start Date End Date Code Code System Current Smoking Status Tobacco smoking consumption unknown 929193816 SNOMED CT Sex Assigned At Female 1955 03390-6 [facility] Vital Signs Code Code System Vitals Name Values and Units Timing Information 17531-8 [facility] Pain Level Value=4.0 09/05/2022 50993-9 [facility] O2 % BldC Oximetry Value=96.0 Units= % 09/04/2022 8310-5 [facility] Body Temperature Value=97.7 Units= F 09/04/2022 9279-1 [facility] Respiratory Rate Value=18.0 Units=/m in 09/04/2022 8462-4 [facility] Blood Pressure-Diastolic Value=65 Un its=mmHg 09/04/2022 8480-6 [facility] Blood Pressure-Systolic Jfipq=111 Un its=mmHg 09/04/2022 8867-4 [facility] Heart rate Wrzzo=541.0 Units=/min 09/04/2022 69691-9 LOINC Weight Pgpia=396.0 Units=Lbs 07/2022 8302-2 LOINC Height Value=62.0 Units=Inches 08/14/2022
--- OUTSIDE RECORDS SUMMARY | 2024-07-28 09:27 | XMS_ITS | Encounter Summary ---
Author Organization [facility] Address [address] [place] [address] Care Team Providers Care Applications Systems Analyst Name Role Phone None Reported, Pcp Primary Care Provider Unavail able Reason for Visit * Reason Comments Med Refill Encounter Details Date Type Department Care Team (Late st Contact Info) Description 07/22/2024 Refill Division of Endocrinology in [place], [place] [address] [place] [id number] Ronna Tang M.D. [address] [place] [address] Med Refill Social History Tobacco Use Types Packs/Day Years Used Date Smoking Tobacco: Never Passive Smoke Exposure: Never Smokeless Tobacco: Never Alcohol Use Standard Drinks/Week Comments Never 0 (1 standard drink = 0.6 oz pur e alcohol) [facility] Utilities Answer Date Recorded In the past 12 months has [facility] [employer], gas, oil, or water [employer] threatened to shut off services in your [...] often do you attend chur ch or religion services? More than 4 times per year 12/23/2021 Do you belong to any clubs o r organizations such as yarsanism groups, unions, fraternal or athletic groups, or [...] PHQ-2 Score 2 01/21/2024 [facility] Questionnaire Answer [...] your living situation today? I have a [facility] place to live 03/11/2024 Education Answer Date Recorded What is the highest level of school you have completed or the highest degree you have received? Master's degree (e.g., MA, MS, Tc, MEd, KIL[employer] FIREMAN, ALEKSEY) 09/07/2018 Comments Unknown Sex and Gender Information Value Date Recorded Sex Assigned at Female 01/02/2021 11:08 AM CDT Legal Sex Female 10:48 AM CDT Gender Identity Female 03/11/2019 12:39 PM OYSTER TONGER Sexual Orientation Straight 03/11/2019 12 :39 PM OYSTER TONGER documented as of this encounter Plan of Treatment Not on file documented as of this encounter Visit Diagnoses Not on filedocumented in this encounter Additional Health Concerns Assessment Noted Time PHQ-9 Depression Total Score: 5 01/12/20 20 1:04 PM CDT documented as of this encounter Care Teams Applications Systems Analyst Relationship Specialty Start Date End Date None Reported, Pcp PCP - General Family Medicine 01/26/24 documented as of this encounter
--- OUTSIDE RECORDS SUMMARY | 2024-07-28 09:27 | XMS_ITS | Clinical Summary ---
Author Organization [facility] Address [address] [place] [address] Care Team Providers Care Brief Writer Name Role Phone None Reported, Pcp Primary Care Provider Unavail able Source Comments Patient records contain information from all sites at [facility]. For routine questions regarding patient records, call [phone] during business hours, M-F 8:00 AM - 5:00 PM Central Time. Record requests for emergency care only can be directed to [phone] at any time.[facility] Allergies Active Allergy Reactions Criticality Noted Date [...] bedtime. 05/20/19 21 Active [facility] CPAP machine for home use at pressure [...] Description 07/22/2024 Refill Division of Endocrinology in [place], [place] [address] [place] [address] Ronna Tang M.D. Med Refill from Last [...] drink = 0.6 oz pur e alcohol) [facility] Utilities Answer Date Recorded In the past 12 months has [employer], gas, oil, or water [employer] threatened to shut off services in your [...] often do you attend chur ch or rastafari services? More than 4 times per year 12/23/2021 Do you belong to any clubs o r organizations such as sabianist groups, unions, fraternal or athletic groups, or [...] Answer Date Recorded PHQ-2 Score 2 01/21/2024 [facility] - Occupational Stress [...] your living situation today? I have a [facility] place to live 03/11/2024 Education Answer Date Recorded What is the highest level of school you have completed or the highest degree you have received? Master's degree (e.g., MA, MS, Tc, MEd, SAMPLE SEWER, ALEKSEY) 09/07/2018 Comments Unknown Sex and Gender Information Value Date Recorded Sex Assigned at Female 01/02/2021 11:08 AM CDT Legal Sex Female 10:48 AM CDT Gender Identity Female 03/11/2019 12:39 PM ASBESTOS ABATEMENT TECHNICIAN Sexual Orientation Straight 03/11/2019 12 :39 PM ASBESTOS ABATEMENT TECHNICIAN Last Filed Vital Signs Vital Sign Reading Time Taken Comments Blood Pressure 118/58 03/16/2024 10:38 AM ASBESTOS ABATEMENT TECHNICIAN Pulse 93 03/16/2024 10:38 AM ASBESTOS ABATEMENT TECHNICIAN Temperature 36.6 C (97.9 F) 01/08/2021 11:04 AM CDT Respiratory Rate - - Oxygen Saturation - - Inhaled Oxygen Concentration - - Weight 91.7 kg (202 lb 2.6 oz) 03/16/2024 10:38 AM ASBESTOS ABATEMENT TECHNICIAN Height 160 cm (5' 2.99) 03/16/2024 10:38 AM ASBESTOS ABATEMENT TECHNICIAN Body Mass Index 35.82 03/16/2024 10:38 AM ASBESTOS ABATEMENT TECHNICIAN Plan of Treatment Health Maintenance Due Date [...] this topic Medical Devices Implanted Type Area Yeast Culture Developer Device Identifier Shelf Expiration Date Model / Serial / Lot Hardware E.G. Pins/Screws/Ld s-03/31/2022 Implanted:03/31 (Quantity not on file) Hardware e.g. pins/screws/ro ds Right: Hip Description:Pins and Screws - Implantable Loop Recorder-2018 Implanted:03/17 (Quantity not on file) Implantable Loop Recorder Left: Chest Medtronic [id number] / [id number] S / Insurance [facility] Care Teams Brief Writer Relationship Specialty Start Date End Date None Reported, Pcp PCP - General Family Medicine 01/26/24
--- OUTSIDE RECORDS SUMMARY | 2024-07-28 09:27 | XMS_ITS | Encounter Summary ---
Author Organization [facility] Address [address] [place] [address] Care Team Providers Care Anesthesia Associate Name Role Phone Gaby Fleming MD Primary Care Provider [phone] Encounter Details Date Type Department Care Team [...] on filedocumented in this encounter Care Teams Anesthesia Associate Relationship Specialty Start Date End Date Gaby Fleming MD [address] [place] [address] PCP - General 01/29/06 documented as of this encounter
--- OUTSIDE RECORDS SUMMARY | 2024-07-28 09:27 | XMS_ITS | CCD ---
Author Organization Unknown Care Team Providers Care Slot Floor Supervisor Name Role Phone [employer] Clerk, [place] Primary Care Provider Unava ilable Unavailable Chronic Care Management Unavaila ble Summary Purpose DataExchange Insurance Providers Payer name Policy type / Coverage type Covered constitution party ID Effective Begin Date Effective End Date [facility] Commercial Insurance [id number] Unknown Unkn own Family History Family History data not found Medication Administered No Medication Administered data Reason For Visit No Reason For Visit data
--- OUTSIDE RECORDS SUMMARY | 2024-07-28 09:27 | XMS_ITS | CCD ---
Author Organization Unknown Care Team Providers Care Switchboard Troubleshooter Name Role Phone [place] Con[employer] Operator, [place] Primary Care Provider Unava ilable Unavailable Chronic Care Management Unavaila ble Summary Purpose DataExchange Insurance Providers Payer name Policy type / Coverage type Covered libertarian ID Effective Begin Date Effective End Date [facility] Commercial Insurance [id number] Unknown Unkn own Family History Family History data not found Medication Administered No Medication Administered data Reason For Visit No Reason For Visit data
--- OUTSIDE RECORDS SUMMARY | 2024-07-28 09:27 | XMS_ITS | Clinical Summary ---
Author Organization [employer] [facility] Address [address] [place] [address] Care Team Providers Care Sliver Handler Name Role Phone Gaby Fleming Unavailable [phone] [facility] Care, Harvey Unavailable Holli Thomas DO Unavailable [phone] Angi Estevez DO Primary Care Provider [phone] Allergies Active Allergy Reactions Criticality Noted Date [...] Detail In Comments) Anaphylaxis High 08/04/2015 Hand content checker used by someone else in her group [...] 25 Active fludrocortisone (FLORINEF) 0.1 mg tabletIndication s:Barnstable's disease (HC) Take 1 Tablet (0.1 mg) [...] mL IV ONE TIME 07/08/2024 07/08/2024 Ended zoledronic acid in mannitol & water (RECLAST) 5 mg/100 mL pgbk 100 mLIndications: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 Formerly known as conversion disorder. Tinnitus, bilateral [...] adrenal insufficiency; following with Dr. Ronna Tang ([facility]) Pap smear for cervical cancer screening 04/30/2022 [...] Type Department Care Team Description 07/21/2024 Telephone [facility] [address] [place] [address] Angi Estevez, DO Medication Management (calcium carbonate-vitamin D3 (600 mg-400 unit) 600 mg-10 mcg (400 unit) tablet/) 07/12/2024 8:00 AM CDT Ancillary Procedure [facility] [address] [place] [address] 07/12/2024 Travel 07/07/2024 11:00 AM CDT Office Visit [facility] [address] [place] [address] Angi Estevez Netta, DO ER Follow up (Dizziness/falls, UTI) 07/07/2024 Telephone [facility] [address] [place] [address] Sir Estevezi Netta, DO Reclast 07/07/2024 Travel 07/05/2024 Travel 06/30/2024 Telephone [facility] [address] [place] [address] Sir Estevezi Netta, DO Medication Management (omeprazole (PRILOSEC) 40 mg Delayed-Release capsule) 06/23/2024 Refill [facility] [address] [place] [address] Angi Estevez DO Refill Request (Metoprolol Succinate) 06/15/2024 Nurse Triage [facility] [address] [place] [address] Angi Estevez, Urinary Problem 05/28/2024 10:30 AM QUILTING MACHINE HELPER Ancillary Procedure [facility] [address] [place] [address] 05/27/2024 Travel 05/20/2024 10:30 AM QUILTING MACHINE HELPER Office Visit [facility] [address] [place] [address] Yony Gao MD Consult (Diarrhea 3-6 x daily, lower abdominal cramping x years, sometimes stays in bed due to abdominal pain, taking imodium & dicyclomine daily, severe heartburn x 4 months ) 05/19/2024 Travel from Last 3 Months Immunizations Immunization Administration Dates Next Due COVID-19 VACCINE SPIKEVAX (M ODERNA 50MCG/0.5ML) 12YO+ PFS 01/21/2023 COVID-19 vaccine (Lingospot[employer]Bio NTech 30mcg/0.3mL) 12YO+ BIVALENT PF, MDV 01/18/2022 COVID-19 vaccine (WISErg-Bio NTech 30mcg/0.3mL) 12YO+ SANTI-SUCROSE PF, MDV 09/15/2021 COVID-19 vaccine (WISErg-Fruitfulll NTech 30mcg/0.3mL) PF, MDV 09/15/2021,01/01/2021,05/09/2020,2020 DT (Age [...] PM CDT Legal Sex Female 7:01 AM QUILTING MACHINE HELPER Gender Identity Female 11/19/2021 5:38 PM [...] Info) Description 08/11/2024 2:00 PM CDT Telemedicine [facility] [place] [address] [facility] [address] [place] [address] Rosa Mooney MD [address] [facility] [address] [place] [address] 08/25/2024 12:55 PM CDT Office Visit [facility] [address] [place] [address] Angi Estevez, DO [address] [place] [address] Health Maintenance Due Date Last Done Comments RSV vaccine for adults or (1 - Risk 60-74 years 1-dose series) 2017 Colonoscopy through age 75 01/08/202401/07 (Completed outside of [facility]) Mammogram for age 45-75 02/28/2024 02/28/20 23, 12/24/2021, 12/29/2020 (Completed outside of [facility]) Medicare Wellness for age 65+ 03/07/2024 03/07/2023 [...] Lipids for age 45-75 03/07/2028 03/07/2023, 10/19/19 Tetanus booster 12/27/2028 12/27/2018, 09/29, 05/15/2010, Additional history exists Tdap Completed 12/27/2018, 09/29, 05/15/2010 Zoster (shingles) series for age 50+ Completed 09/15/2021, 07/04/2021 Hepatitis C screening for ag e 18-79 Completed 10/18/2021 Pneumococcal series for age 50+ Completed , 02/07/2012 DEXA/DXA scan for age 65+ Completed 02/27/2023 Medical Devices Implanted Type Area Coil Repair Technician Device Identifier Shelf Expiration Date Model / Serial / Lot Mesh Hiatal 7x10cm Bio-A - [id number] Implanted:Qty: 1 on 01/22/2022 by Tamir Kimbrough ra, MD at [facility] N/A: Abdomen [employer] 09/17/2024 [id number] / / [id number] Procedures Procedure Name Priority Date/Time Associated Diagnosis [...] ABDOMEN PELVIS WO Routine 05/28/2024 10:13 AM QUILTING MACHINE HELPER Chronic diarrhea RLQ abdominal pain LIPID PANEL W REFLEX MEASURED LDL Routine 03/07/2023 10:18 AM QUILTING MACHINE HELPER Screening cholesterol level XR DXA BONE DENSITY 2 SITES AXIAL Routine 02/27/2023 11:35 AM QUILTING MACHINE HELPER Postmenopausal XR MAMMO PATIENCE BILAT SCREEN Routine 02/27/2023 11:12 AM QUILTING MACHINE HELPER Visit for screening mammogram ANTI HCV [...] JOSE C Referring MD: ANGI ESTEVEZ Site: [facility] Reading Location: MOBILE-OP Patient Location: [...] documentation: 1 ml diluted Definity, lot #[id number], [facility]# [id number] was administered peripherally to enhance visualization of all left ventricular segments. . This study was interpreted by an PSYCHIATRIC accredited facility. Final Procedure Note Richie Maldonado MD - 07/12/2024 ECHOCARDIOGRAM SOPHIE CASTRO : 1955 69 years Study Date: 07/12/2024 8:05:10 AM Gender: F BP: 124/58 mmHg Height: 157.00 cm BSA: 1.91 m Weight: 91.00 kg Tech: [facility] Referring MD: ANGI ESTEVEZ Site: [facility] Reading Location: MOBILE-OP Patient Location: [...] documentation: 1 ml diluted Definity, lot #[id number], [facility]#[id number] was administered peripherally to enhance visualization of allleft ventricular segments. . This study was interpreted by an PSYCHIATRIC accredited facility. Final Angi Netta Herb VASQUEZ ECHO ORD Final Result * VITAMIN D 25 (DEFICIENCY) (07/07/2024 12:08 PM CDT) VITAMIN D,25-OH,TOTAL,IA 55 30 - 100 ng/mL Nestiomichele Mendoza Comment: Vitamin D Status 25-OH Vitamin D: Deficiency: <20 ng/mL Insufficiency: 20 - 29 ng/mL Optimal: > or = 30 ng/mL For 25-OH Vitamin D testing on patients on D2-supplementation and patients for whom quantitation of D2 and D3 fractions is required, the QuestAssureD(TM) 25-OH VIT D, (D2,D3), LC/MS/MS is recommended: order code 03940 (patients >2yrs). See Note 1 Note 1 For additional information, please refer to http://education.StitcherAds/faq/VXZ005 (This link is being provided for informational/ educational purposes only.) Blood BLOOD SPECIMEN / Unknown 07/07/2024 12:08 PM CDT 07/07/2024 12:08 PM CDT Angi Estevez DO SEND OUTS Final Result [facility] [address] [place] [address], [facility] [address] [place] [address] * (ABNORMAL) BASIC METABOLIC PANEL (07/07/2024 12:08 PM CDT) GLUCOSE 72 65 - 99 mg/dL [place] [employer] omichele Mendoza Comment: Fasting reference interval UREA NITROGEN (BUN) 12 7 - 25 mg/dL Nestiood Reji CREATININE 0.80 0.50 - 1.05 mg/dL [...] 6(L) 7 - 17 mmol/L (calc) [facility] CALCIUM 9.8 8.6 - 10.4 mg/dL [facility] Blood BLOOD SPECIMEN / Unknown 07/07/2024 12:08 PM CDT 07/07/2024 12:08 PM CDT Angi Estevez DO CHEMISTRY Final Result [facility] [address] [place] [address], [employer] [address] * CT ABDOMEN PELVIS WO (05/28/2024 10:13 AM QUILTING MACHINE HELPER) Anatomical Region Laterality Modality Abdomen, Pelvis, AORTA, LIVER, SPLEEN Computed Tomography 05/28/2024 1:29 PM QUILTING MACHINE HELPER Narrative 05/28/2024 1:29 PM QUILTING MACHINE HELPER For Patients: As a result of [...] result of the Century Cures Act, medical imagingexams and procedure [...] W REFLEX MEASURED LDL (03/07/2023 10:18 AM QUILTING MACHINE HELPER) CHOLESTEROL,TOTAL 203(H) 100 - 199 mg/dL 03/07/2023 4:59 PM QUILTING MACHINE HELPER [facility] Comment: Cholesterol, Total Reference Ranges Desirable <200 mg/dL Borderline 200-239 mg/dL High >=240 mg/dL TRIGLYCERIDES 150(H) <150 mg/dL 03/07/2023 4:59 PM QUILTING MACHINE HELPER [facility] [employer] [facility] HDL CHOLESTEROL 73 >40 mg/dL 3 4:59 PM QUILTING MACHINE HELPER [facility] NON-HDL CHOLESTEROL 130 <145 mg/dl 03/07/2023 4:59 PM QUILTING MACHINE HELPER [facility] CHOL/HDL RATIO 2.78 <4.50 03/07/2023 4:59 PM QUILTING MACHINE HELPER [facility] LDL CHOLESTEROL 100 <=130 mg/dL 03/07/2023 4:59 PM QUILTING MACHINE HELPER [facility] VLDL CHOLESTEROL 30 <=30 mg/dL 03/07/2023 4:59 PM QUILTING MACHINE HELPER [facility] [employer] [facility] PROVIDER ORDERED STATUS RANDOM 03/07/2023 4:59 PM QUILTING MACHINE HELPER [facility] Blood BLOOD SPECIMEN / Unknown Venipuncture / Unknown 03/07/2023 10:18 AM QUILTING MACHINE HELPER 03/07/2023 10:25 AM QUILTING MACHINE HELPER Angi Estevez DO CHEMISTRY Final Result [facility] [address] [place] [address], * (ABNORMAL) XR DXA BONE DENSITY 2 SITES AXIAL [79426.1] (02/27/2023 11:35 AM QUILTING MACHINE HELPER) Anatomical Region Laterality Modality Spine, HIPS, HIPL, HIPR Other Impressions 03/10/2023 7:43 AM QUILTING MACHINE HELPER Osteoporosis. RECOMMENDATIONS: The National Osteoporosis Foundation [...] to assess therapeutic efficacy. Marisa Orozco PA-C [facility] 03/10/2023 Narrative 03/10/2023 7:43 AM QUILTING MACHINE HELPER For Patients: Results are automatically released to your [facility] account once available, in compliance with federal regulations. This means that you may see your results before your provider has had a chance to review them. Please allow 2-3 business days for your provider to comment on the results. XR DXA Bone Mineral Density (BMD) EXAM LOCATION: [address] [address] PATIENT NAME: Sophie Castro DATE OF : [...] two scanners are made by the same drug clerk. PROCEDURE: Dual-energy x-ray absorptiometry performed with routine [...] probability of hip fracture: 13.0%. us Angi Netta Shaqra DO DEXA Final Result * XR MAMMO PATIENCE BILAT SCREEN (02/27/2023 11:12 AM QUILTING MACHINE HELPER) Anatomical Region Laterality Modality BREASTS, Breast Left, Breast Right Bilateral Mammography Impressions 02/27/2023 2:01 PM QUILTING MACHINE HELPER There is no radiographic evidence for malignancy. Recommend annual mammograms. MAMMOGRAM ASSESSMENT: ACR 1 Negative PATIENTS: You will also receive a letter with your examination results in an easy to read format. If you have questions about your results, please contact your referring provider. Narrative 02/27/2023 2:01 PM QUILTING MACHINE HELPER For Patients: As a result of the Cures Act, medical imaging exams and procedure reports are released immediately into your electronic medical record. You may view this report before your referring provider. If you have questions, please contact your health care provider. XR MAMMO PATIENCE BILAT SCREEN [[id number]] CLINICAL HISTORY: This is an asymptomatic 67 y.o. patient. INDICATION FOR EXAM: Mammogram Screening. TECHNIQUE: CC & MLO views were obtained. This study was evaluated with the assistance of Computer-Aided Detection. Breast Tomosynthesis was used in interpretation. COMPARISON FILM: Yes 12/24/21 [employer] FINDINGS: The breasts have scattered areas of fibroglandular density. There are no dominant masses, suspicious micro calcifications or areas of architectural distortion. us Angi Netta Shaqra DO MAMMO Final Result * ANTI HCV (10/18/2021 12:14 PM CDT) HEPATITIS C ANTIBODY Non-React fiona Non-React fiona 10/19/2021 3:38 AM CDT [facility] Comment:Antibodies to HCV no t detected; does not exclude the possibility of exposure to HCV. Blood BLOOD SPECIMEN / Unknown Venipuncture / Unknown 10/18/2021 12:14 PM CDT 10/18/2021 12:16 PM CDT us Betina BRANTLEY SEND OUTS Final Resu lt [facility] [address] [place] [address], [place] from Last 3 Months or Most Recently Relevant to Health Maintenance Insurance MEDICARE PART A HB ONLY [facility] Advance Directives Documents on File Type Date Recorded Patient Wood Carver Hand Expl anation POLST 09/09/2022 POLST 03/13/2022 09/10/22 [...] 1:02 PM 03/17/2019 3:50 PM Care Teams Sliver Handler Relationship Specialty Start Date End Date Ang[place] [address] PCP - General Family Practice 10/08/22 Gaby Fleming [facility] 10/26/14 [facility] [address] [place] [address] 06/12/22 Holli Thomas DO [address] [facility] [address] [place] [address] Internal Medicine 09/13/22
--- OUTSIDE RECORDS SUMMARY | 2024-07-28 09:28 | XMS_ITS | Encounter Summary ---
Author Organization [facility] Address [address] [place] [address] Care Team Providers Care Dialysis Biomed Technician Name Role Phone Gaby Fleming MD Primary Care Provider [phone] Encounter Details Date Type Department Care Team [...] on filedocumented in this encounter Care Teams Dialysis Biomed Technician Relationship Specialty Start Date End Date Gaby Fleming MD [address] [place] [address] PCP - General 01/29/06 documented as of this encounter
--- OUTSIDE RECORDS SUMMARY | 2024-07-28 09:28 | XMS_ITS | Encounter Summary ---
Author Organization [facility] Address [address] [place] [address] Care Team Providers Care Industrial Controller Name Role Phone Gaby Fleming MD Primary Care Provider [phone] Encounter Details Date Type Department Care Team [...] on filedocumented in this encounter Care Teams Industrial Controller Relationship Specialty Start Date End Date Gaby Fleming MD [address] [place] [address] PCP - General 01/29/06 documented as of this encounter
--- OUTSIDE RECORDS SUMMARY | 2024-07-28 09:28 | XMS_ITS | Encounter Summary ---
Author Organization [facility] Address [address] [place] [address] Care Team Providers Care Detective Captain Name Role Phone Gaby Fleming MD Primary Care Provider [phone] Encounter Details Date Type Department Care Team (Late st Contact Info) Description 09/27/2016 [facility] [address] [facility]. [place], [place] [id number] Jason Barrett MD [address] [place], [place] [id number] [facility] Social History Tobacco [...] on filedocumented in this encounter Care Teams Detective Captain Relationship Specialty Start Date End Date Gaby Fleming MD [address] [place] [address] PCP - General 01/29/06 documented as of this encounter
--- OUTSIDE RECORDS SUMMARY | 2024-07-28 09:28 | XMS_ITS | Clinical Summary ---
Author Organization [facility] Address [address] [place] [address] Care Team Providers Care Air Brake Mechanic Name Role Phone Kat Fleming MD Primary Care Provider Source Comments You are receiving this document as you are listed as the primary care provider,follow-up provider, or the patient has been referred to you for consultation.This is in compliance with the Medicare and[facility] EHR Incentive Program,which states Providers who transition their patient to another setting of careor provider of care or refers their patient to another provider of care shouldprovide summary care record for each transition of care or referral. Solar Flow-Through Allergies Active Allergy Reactions Criticality Noted Date Comments Iodinated Contrast Media Anaphylaxis High 05/26/2014 Pt given Epi Pen and sent to ER post injection CT Contrast with pre medication given to patient prior to Contrast injection. Nitrofurantoin Other Anaphylaxis High 06/29/2014 Hand regional driver used by someone else in her group [...] opened 05/23/14, assigned to Radha Cantu RN, [facility], [place] [facility] @ [phone] Interactive with Asthma Disease Management Program, opt [...] deconditioning 07/26/2014 Vocal cord dysfunction 07/25/2014 CAREPLAN: [facility] CASE MANAGEMENT 2014 Overview (08/14/2016): Background: 11/04/14 Continue case open to Behavioral Health Case Manuel/Kim Spain @ [phone] Engaged in Complex Case Management: Santa Garcia RN [phone] Goals/Recommendations: CM will encourage patient to f/t [...] dated 09/08/2015. Also terminated by Deborah Campos [facility] (psychotherapy). Jaycob Ayala MD 09/08/2015, 3:15 PM Adjustment disorder with mix ed anxiety and depressed mood 08/04/2015 12/06/2015 Sensory integration disorder 07/26/2015 12/06/2015 Impaired mobility and ADLs 07/26/2015 0 12/06/2015 Severe episode of recurrent major depressive disorder, without psychotic features 06/09/201509/2015 Panic disorder without agoraphobia 04/20/2015 12/06/2015 [facility] Behavioral Health Case Management 10/07/19 15 01/11/2016 Overview (10/06/2014): Background: Diagnosis: Major Depressive Disorder, Generalized Anxiety Disorder, PTSD, Panic Disorder and Dissociative Identity Disorder. Current situation: The member was recently hospitalized on a psych unit at [facility] from 10/02/14-10/06/14. She was discharged with psychotherapy and psychiatry appointments. Providers outside of [facility]: The member sees two therapists at [facility]. Filipe Mcwilliams and Faith Vazquez. They can be reached at [phone]. 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 Diagnosis: Dysthymia; Panic Disorder Current situation: Reports experiencing symptoms of depression and anxiety due to family stressors and significant challenges with maintaining a work/family balance. Patient has been participating in intensive mental health treatment since the middle of October. Patient s all 5 children live at home with her along with her elderly [id number]. Patient reports that she has experienced symptoms of depression for many years however, the anxiety is new for her and that she has challenges with her overall self-care. Providers outside of [facility]: Currently attending IOP at [facility] Goals/Recommendations: Outpatient Depression/Anxiety General Education Instructor Contact Information: Garry Roman MS, [facility] [phone] Action Plan: To continue to work on improving overall self-care by developing a sleep schedule, engaging in physical activity, eating a balance diet, relaxation and participating in enjoyable activities. General Education Instructor to provide health education information on overall self-care, stress relief, relaxation, anxiety, healthy eating as well as community support for anxiety/panic. Diverticulitis 10/16/2013 12/06/2015 Head revolving around 10/16/20132014 Nontoxic uninodular goiter 03/27/2004 1 04/05/2014 Immunizations Immunization Administration Dates Next Due DTaP 09/28/2014 Flu Vac (3+ yrs) 01/10/2012, 1,12/29/2008,2006,01/15/2006,01/11/2005,03/01/2004,1 04/04/2002,02/04/2002,02/04/2001, 000,01/18/1999 HepA-HepB ([place], 18+ yrs) 01/17/2016,06/02/19 03,12/25/2001 Influenza IIV4 (Quadrivalent ) 0.5mL (39861) 12/06/2015,12/22/2014,12/07/2013,2012 Influenza Vaccine (3+years) ([facility]) 01/09/2010,01/12/2008 Influenza, Unspecified Formulation 01/10/1998, [...] this topic Medical Devices Implanted Type Area Make Ready Mechanic Device Identifier Shelf Expiration Date Model / Serial / Lot Sling Advantage Mid-Urethral - [id number] Implanted:Qty: 1 on 02/21/2015 by Carlos Barrow MD at [facility] DEVICE N/A: VAGINA Dahinda Scien payable processor 10/26/2017 [id number] / / [id number] Procedures Procedure Name Priority Date/Time Associated Diagnosis Comments LIPID PANEL & DIRECT LDL (IF NEEDED) Routine 03/19/2016 11:16 AM CALENDER RUNNER Pre-diabetes HEPATITIS C ANTIBODY, WITH REFLEX Routine 12/06/2015 9:36 AM CDT Preventative health care PAP TEST, ROUTINE Routine 09/06/2014 8:2 8 AM CDT Screening for cervical cancer MM MAMMOGRAM SCREENING BILAT W CAD Routine 04/11/2014 2:06 PM CALENDER RUNNER COLONOSCOPY Routine 08/09/2011 8:56 AM CDT Abn findings-GI tract from Last 3 Months or Most Recently Relevant to Health Maintenance Results * (ABNORMAL) Lipid Panel and Direct LDL(If Needed) (03/19/2016 11:16 AM CALENDER RUNNER) Hours Fasting 2 hours [facility] Cholesterol 179 0 - 199 mg/dl [facility] Triglyceride 161(H) 0 - 149 mg/dl [facility] HDL 40(L) >40 mg/dl [facility] LDL, Calc. 107 0 - 129 mg/dl [facility] Non HDL Chol, Calc 139 mg/dl [facility] 03/19/2016 11:1 6 AM CALENDER RUNNER 03/19/2016 11:17 AM CALENDER RUNNER Narrative [facility] - 03/19/2016 6:49 PM CALENDER RUNNER Performed at [facility], [address] [place] [address] us Kat Fleming MD LAB_1 Final Resul t Performing Organization Address [facility] de Phone Number [facility] [phone] * Hepatitis C Antibody, with Reflex (12/06/2015 9:36 AM CDT) Anti-HCV Negative (Non Reactive) [facility] Comment: Antibodies to HCV not detected. Does not exclude the possibility of exposure to HCV. 12/06/2015 9:36 AM CDT 12/06/2015 9:37 AM CDT Narrative [facility] - 12/06/2015 8:01 PM CDT Performed at [facility], [address] [place], [place] [id number] us Kat Fleming MD LAB_1 Final Resul t Performing Organization Address [facility] de Phone Number [facility] [phone] * PAP TEST, ROUTINE (09/06/2014 8:28 AM CDT) Cytology, Pap (NOTE) Rubber Insulator Cytology Report Patient Name: SOPHIE CASTRO Taken: 09/06/2014 Received: 09/06/2014 Reported: 09/12/2014 Physician(s): KAT FLEMING ([id number]) Source of Specimen Pap Test, Routine Cervical/Endocervi zane: Specimen Adequacy Satisfactory for evaluation. Endocervical component present. Final Cytologic Interpretation/Res ult NEGATIVE FOR INTRAEPITHELIAL LESION OR MALIGNANCY (NILM) Other Cytologic Findings Atrophy Electronically Signed Out By ABDELRAHMAN Andrew (ASCP) ABDELRAHMAN Andrew (ASCP) Pap Smear History Date of Last Menstrual Period: Menopausal Microscopic Description Microscopic examination is performed. [facility] Department of Pathology [address] [place] [address] [facility] 09/06/2014 8:28 AM CDT 09/06/2014 5:03 PM CDT Result [facility] Kat Fleming MD LAB_1 Final Resul t [facility] [phone] * MAMMOGRAM SCREENING BILATERAL (04/11/2014 2:06 PM CALENDER RUNNER) Anatomical Region Laterality Modality Breast Bilateral Mammography Narrative 04/12/2014 2:34 PM CALENDER RUNNER BILATERAL FULL FIELD DIGITAL SCREENING MAMMOGRAM Performed [...] RAD ZENA Final Resul t * COLONOSCOPY [[id number]] (08/09/2011 8:56 AM CDT) 08/09/2011 8:56 AM [...] previously scheduled. CPT(R) Code(s): --- Professional --- 96982, Colonoscopy, flexible, proximal to splenic flexure; diagnostic, with or without collection of specimen(s) by brushing or washing, with or without colon decompression (separate procedure) ICD9 Code(s): --- Professional --- 793.4, Nonspecific (abnormal) findings on radiological and other examination of gastrointestinal tract 562.10, Diverticulosis of colon (without mention of hemorrhage) CPT (R) 2011 [employer]. All Rights Reserved. The codes documented in this report are preliminary and upon policy value calculator review may be revised to meet current [...] previously scheduled. CPT(R) Code(s): --- Professional --- 52854, Colonoscopy, flexible, proximal to splenic flexure; diagnostic, with or without collection of specimen(s) by brushing or washing, with or without colon decompression (separate procedure) ICD9 Code(s): --- Professional --- 793.4, Nonspecific (abnormal) findings on radiological and other examination of gastrointestinal tract 562.10, Diverticulosis of colon (without mention of hemorrhage) CPT (R) 2011 [employer]. All Rights Reserved. The codes documented in this report are preliminary and upon policy value calculator review may be revised to meet current compliance requirements. Attending Participation: Ari Amanda MD 08/09/2011 9:21 AM Number of Addenda: 0 Note Initiated On: 08/09/2011 8:56 AM Ari Amanda MD DIGESTIVE CARE Final Result GI ([facility]OVATION) [place], [place] from Last 3 Months or Most Recently Relevant to Health Maintenance Insurance [facility] MEDIC[facility] Advance Directives * Full Code (Latest Code Status on File) Date Activated Date Inactivated Comments 10/24/2014 4:56 AM 10/26/2014 2:53 PM * Full Code Date Activated Date Inactivated Comments 10/03/2014 12:15 PM 10/06/2014 1:15 PM * Full Code Date Activated Date Inactivated Comments 04/22/2014 8:28 PM 04/28/2014 4:20 PM Care Teams Air Brake Mechanic Relationship Specialty Start Date End Date Kat Fleming MD [address] [place] [address] PCP - General 01/29/06
--- OUTSIDE RECORDS SUMMARY | 2024-07-28 09:28 | XMS_ITS | Encounter Summary ---
Author Organization [facility] Address [address] [place] [address] Care Team Providers Care Group Burner Machine Name Role Phone Gaby Fleming MD Primary Care Provider [phone] Encounter Details Date Type Department Care Team [...] filedocumented in this encounter Care Teams Group Burner Machine Relationship Specialty Start Date End Date Gaby Fleming MD [address] [place] [address] PCP - General 01/29/06 documented as of this encounter
--- OUTSIDE RECORDS SUMMARY | 2024-07-28 09:28 | XMS_ITS | Encounter Summary ---
Author Organization [facility] Address [address] [place] [address] Care Team Providers Care Nursing Program Manager Name Role Phone Gaby Fleming MD Primary Care Provider [phone] Encounter Details Date Type Department Care Team (Latest Contact Info) Description 07/14/2014 Consent for Procedure/Treatme nt [facility] [address] [facility] [address] [place] [address] INFORMED CONSENT URODYNAMIC TESTING Social History Tobacco [...] on filedocumented in this encounter Care Teams Nursing Program Manager Relationship Specialty Start Date End Date Gaby Fleming MD [address] [place] [address] PCP - General 01/29/06 documented as of this encounter
--- OUTSIDE RECORDS SUMMARY | 2024-07-28 09:28 | XMS_ITS | Encounter Summary ---
Author Organization [facility] Address [address] [place] [address] Care Team Providers Care Film Historian Name Role Phone Gaby Fleming MD Primary Care Provider [phone] Encounter Details Date Type Department Care Team (Late st Contact Info) Description 09/18/2016 Correspondence [facility]ty [facility] [address] [facility] [place], [place] [phone] Jason Barrett MD [address] [place], [place] [phone] [facility] Social History Tobacco [...] on filedocumented in this encounter Care Teams Film Historian Relationship Specialty Start Date End Date Gaby Fleming MD [address] [place] [address] PCP - General 01/29/06 documented as of this encounter
--- OUTSIDE RECORDS SUMMARY | 2024-07-28 09:28 | XMS_ITS | Encounter Summary ---
[facility] Address [address] [place] [address] Care Team Providers Care Fur Blender Name Role Phone Gaby Fleming MD Primary Care Provider [phone] Encounter Details Date Type Department Care Team (Late st Contact Info) Description 10/06/2014 Correspondence [facility] Radiology [address] [place] [id number] Radiology, Provider MRI SAFETY SHEET AND COMPATIBILITY [...] on filedocumented in this encounter Care Teams Fur Blender Relationship Specialty Start Date End Date Gaby Fleming MD [address] [place] [address] PCP - General 01/29/06 documented as of this encounter
--- OUTSIDE RECORDS SUMMARY | 2024-07-28 09:28 | XMS_ITS | Encounter Summary ---
Author Organization [facility] Address [address] [place] [address] Care Team Providers Care Centrifugal Drier Operator Name Role Phone Gaby Fleming MD Primary Care Provider [phone] Encounter Details Date Type Department Care Team [...] on filedocumented in this encounter Care Teams Centrifugal Drier Operator Relationship Specialty Start Date End Date Gaby Fleming MD [address] [place] [address] PCP - General 01/29/06 documented as of this encounter
--- OUTSIDE RECORDS SUMMARY | 2024-07-28 09:28 | XMS_ITS | Encounter Summary ---
Author Organization [facility] Address [address] [place] [address] Care Team Providers Care Engine Research Engineer Name Role Phone Gaby Fleming MD Primary Care Provider [phone] Encounter Details Date Type Department Care Team [...] on filedocumented in this encounter Care Teams Engine Research Engineer Relationship Specialty Start Date End Date Gaby Fleming MD [address] [place] [address] PCP - General 01/29/06 documented as of this encounter
--- OUTSIDE RECORDS SUMMARY | 2024-07-28 09:28 | XMS_ITS | Encounter Summary ---
Author Organization [facility] Address [address] [place] [address] Care Team Providers Care Water Maintenance Supervisor Name Role Phone Gaby Fleming MD Primary Care Provider [phone] Encounter Details Date Type Department Care Team (Late st Contact Info) Description 02/11/2013 Correspondence None No Primary/Referring, [facility] HEALTH PROVIDER SCREENING FORM Social History Tobacco [...] this encounter Progress Notes * No Primary/Referring, [facility] - 02/11/2013 12:00 AM CST TEGIC PROCUREMENT MANAGER documented in this encounter Plan of Treatment Not on file documented as of this encounter Visit Diagnoses Not on filedocumented in this encounter Care Teams Water Maintenance Supervisor Relationship Specialty Start Date End Date Gaby Fleming MD [address] [place] [address] PCP - General 01/29/06 documented as of this encounter
--- OUTSIDE RECORDS SUMMARY | 2024-07-28 09:28 | XMS_ITS | Encounter Summary ---
Author Organization [facility] Address [address] [place] [address] Care Team Providers Care Coremaker Floor Name Role Phone Gaby Fleming MD Primary Care Provider [phone] Encounter Details Date Type Department Care Team (Late st Contact Info) Description 12/14/2015 Correspondence External to External, [place] [address] 2015 HEALTH PROVIDER SCREENING FORM Social History [...] on filedocumented in this encounter Care Teams Coremaker Floor Relationship Specialty Start Date End Date Gaby Flmeing MD [address] [place] [address] PCP - General 01/29/06 documented as of this encounter
--- OUTSIDE RECORDS SUMMARY | 2024-07-28 09:28 | XMS_ITS | Encounter Summary ---
Author Organization [facility] Address [address] [place] [address] Care Team Providers Care Mental Health Technician Name Role Phone Gaby Fleming MD Primary Care Provider [phone] Encounter Details Date Type Department Care Team [...] on filedocumented in this encounter Care Teams Mental Health Technician Relationship Specialty Start Date End Date Gaby Fleming MD [address] [place] [address] PCP - General 01/29/06 documented as of this encounter
--- OUTSIDE RECORDS SUMMARY | 2024-07-28 09:28 | XMS_ITS | Clinical Summary ---
Author Organization [facility] Address [address] [place] [address]. [place] [address] Care Team Providers Care Investment Counselor Name Role Phone No Ref-Primary, Physician Primary [...] on file Legal Sex Female 3:05 AM ELEVATOR SERVICE TECHNICIAN Gender Identity Not on file Sexual Orientation Not on file Last Filed Vital Signs Vital Sign Reading Time Taken Comments Blood Pressure 136/55 06/16/2017 12:08 PM CDT Pulse 85 03/16/2016 8:18 PM ELEVATOR SERVICE TECHNICIAN Temperature 36.7 C (98 F) 06/16/2017 12:08 [...] Advance Directives For more information, please contact: [phone] * Full Code (Latest Code Status on File) Date Activated Date Inactivated Comments 06/29/2014 3:33 PM 06/30/2014 12:26 PM * Full Code Date Activated Date Inactivated Comments 10/17/2013 3:44 PM 06/29/2014 3:33 PM * Full Code Date Activated Date Inactivated Comments 10/16/2013 2:27 PM 10/17/2013 3:44 PM Care Teams Investment Counselor Relationship Specialty Start Date End Date No Ref-Primary, Physician PCP - General 06/16/17
--- OUTSIDE RECORDS SUMMARY | 2024-07-28 09:28 | XMS_ITS | Encounter Summary ---
Author Organization [facility] Address [address] [place] [address] Care Team Providers Care Grade And Center Marker Name Role Phone Gaby Fleming MD Primary Care Provider [phone] Encounter Details Date Type Department Care Team (Late st Contact Info) Description 07/29/2014 Correspondence None No Primary/Referring, Phy EQUIPMENT PROGRAMMER NUMERICAL CONTROL TICKET Social History Tobacco Use Types Packs/Day [...] on filedocumented in this encounter Care Teams Grade And Center Marker Relationship Specialty Start Date End Date Gaby Fleming MD [address] [place] [address] PCP - General 01/29/06 documented as of this encounter
--- OUTSIDE RECORDS SUMMARY | 2024-07-28 09:28 | XMS_ITS | Encounter Summary ---
Author Organization [facility] Address [address] [place] [address] Care Team Providers Care Chiropractic Care Name Role Phone Gaby Fleming MD Primary Care Provider [phone] Encounter Details Date Type Department Care Team (Late st Contact Info) Description 02/02/2016 Refill Order [facility] [address] [place] [id number] [place] [address] [place] [address] Social History Tobacco Use Types Packs/Day [...] Results * Hemoglobin, Blood (02/12/2016 2:43 PM CUSTODIAL LABORER) Hemoglobin 12.7 12.0 - 16.0 g/dl [facility] 02/12/2016 2:43 PM CUSTODIAL LABORER 02/12/2016 2:45 PM CUSTODIAL LABORER Narrative [facility] - 02/12/2016 6:50 PM CUSTODIAL LABORER Performed at [facility], [address] [place] [address] [place] Gaby Fleming MD LAB_1 Final Resul t [facility] [phone] documented in this encounter Visit Diagnoses Diagnosis Encounter for long-term (current) use of medications- Primary Encounter for long-term (current) use of other medications Acute gout of left knee, unspecified cause- Primary Encounter for long-term (current) use of medications Encounter for long-term (current) use of other medications documented in this encounter Care Teams Chiropractic Care Relationship Specialty Start Date End Date Gaby Fleming MD [address] [place] [address] PCP - General 01/29/06 documented as of this encounter
--- OUTSIDE RECORDS SUMMARY | 2024-07-28 09:28 | XMS_ITS | Encounter Summary ---
Author Organization [facility] Address [address] [address] Care Team Providers Care Level Glass Vial Filler Name Role Phone Gaby Fleming MD Primary Care Provider [phone] Encounter Details Date Type Department Care Team [...] on filedocumented in this encounter Care Teams Level Glass Vial Filler Relationship Specialty Start Date End Date Gaby Fleming MD [address] [place] [address] PCP - General 01/29/06 documented as of this encounter
--- OUTSIDE RECORDS SUMMARY | 2024-07-28 09:28 | XMS_ITS | Encounter Summary ---
Author [facility] Address [address] [place] [address] Care Team Providers Care Tour Consultant Name Role Phone Gaby Fleming MD Primary Care Provider [phone] Encounter Details Date Type Department Care Team [...] on filedocumented in this encounter Care Teams Tour Consultant Relationship Specialty Start Date End Date Gaby Fleming MD [address] [place] [address] PCP - General 01/29/06 documented as of this encounter
--- OUTSIDE RECORDS SUMMARY | 2024-07-28 09:28 | XMS_ITS | Encounter Summary ---
Author Organization [facility] Address [address] [place] [address] Care Team Providers Care Aircraft Refueller Name Role Phone Gaby Fleming MD Primary Care Provider [phone] Encounter Details Date Type Department Care Team (Late st Contact Info) Description 07/31/2015 Correspondence External to External, [place] [address] LETTER SUCCESSFULL COMPLETED DBT TREATMENT Social History [...] filedocumented in this encounter Care Teams Aircraft Refueller Relationship Specialty Start Date End Date Gaby Fleming MD [address] [place] [address] PCP - General 01/29/06 documented as of this encounter
--- OUTSIDE RECORDS SUMMARY | 2024-07-28 09:28 | XMS_ITS | Encounter Summary ---
Author Organization [facility] Address [address] [address] Care Team Providers Care Rebrander Name Role Phone Gaby Fleming MD Primary Care Provider +[phone] Encounter Details Date Type Department Care Team [...] on filedocumented in this encounter Care Teams Rebrander Relationship Specialty Start Date End Date Gaby Fleming MD [address] [place] [address] PCP - General 01/29/06 documented as of this encounter
--- OUTSIDE RECORDS SUMMARY | 2024-07-28 09:28 | XMS_ITS | Encounter Summary ---
Author Organization [facility] Address [address] [place] [address] Care Team Providers Care Operations Processor Name Role Phone Gaby Fleming MD Primary Care Provider [phone] Encounter Details Date Type Department Care Team [...] on filedocumented in this encounter Care Teams Operations Processor Relationship Specialty Start Date End Date Gaby Fleming MD [address] [place] [address] PCP - General 01/29/06 documented as of this encounter
--- OUTSIDE RECORDS SUMMARY | 2024-07-28 09:28 | XMS_ITS | Encounter Summary ---
Author Organization [facility] Address [address] [place] [address] Care Team Providers Care Hotel Sales Manager Name Role Phone Gaby Fleming MD Primary Care Provider [phone] Encounter Details Date Type Department Care Team (Late st Contact Info) Description 06/30/2014 Outside Hospital External to [facility] Provider DISCHARGE SUMMARY Social History Tobacco [...] on filedocumented in this encounter Care Teams Hotel Sales Manager Relationship Specialty Start Date End Date Gaby Fleming MD [address] [place] [address] PCP - General 01/29/06 documented as of this encounter
--- OUTSIDE RECORDS SUMMARY | 2024-07-28 09:28 | XMS_ITS | Encounter Summary ---
Author Organization [facility] Address [address] [place] [address] Care Team Providers Care Motor Power Connector Name Role Phone Gaby Fleming MD Primary Care Provider [phone] Encounter Details Date Type Department Care Team (Late st Contact Info) Description 03/27/2015 Correspondence None No Primary/Referring, Phy E EQUIPMENT IT SERVICE MANAGER TICKET Social History Tobacco Use Types Packs/Day [...] on filedocumented in this encounter Care Teams Motor Power Connector Relationship Specialty Start Date End Date Gaby Fleming MD [address] [place] [address] PCP - General 01/29/06 documented as of this encounter
--- OUTSIDE RECORDS SUMMARY | 2024-07-28 09:28 | XMS_ITS | Encounter Summary ---
Author Organization [facility] Address [address] [place] [address] Care Team Providers Care Family Caseworker Name Role Phone Gaby Fleming MD Primary Care Provider [phone] Encounter Details Date Type Department Care Team (Late st Contact Info) Description 07/12/2014 Correspondence [facility] [address] [place] [address]. [place], [place] [id number] Carlos Barrow MD [address] [place], [place] [id number] UROGYNECOLOGY QUESTIONNAIRE Social History Tobacco Use Types [...] on filedocumented in this encounter Care Teams Family Caseworker Relationship Specialty Start Date End Date Gaby Fleming MD [address] [place] [address] PCP - General 01/29/06 documented as of this encounter
--- OUTSIDE RECORDS SUMMARY | 2024-07-28 09:28 | XMS_ITS | Encounter Summary ---
Author Organization [facility] Address [address] [place] [address] Care Team Providers Care Nnp Name Role Phone Gaby Fleming MD Primary Care Provider [phone] Encounter Details Date Type Department Care Team (Late st Contact Info) Description 01/10/2015 Correspondence [facility] Psychiatry [address] [place] [id number] Jaycob Ayala MD LETTER Social History Tobacco [...] on filedocumented in this encounter Care Teams Nnp Relationship Specialty Start Date End Date Gaby Fleming MD [address] [place] [address] PCP - General 01/29/06 documented as of this encounter
--- OUTSIDE RECORDS SUMMARY | 2024-07-28 09:29 | XMS_ITS | Encounter Summary ---
Author Organization [facility] Address [address] [place] [address] Care Team Providers Care Cashiers Bussers Food Runners Name Role Phone Gaby Fleming MD Primary Care Provider [phone] Encounter Details Date Type Department Care Team (Late st Contact Info) Description 07/17/2015 Correspondence None No Primary/Referring, Phy HME EQUIPMENT DRY WALL SPRAYER TICKET Social History Tobacco Use Types Packs/Day [...] on filedocumented in this encounter Care Teams Cashiers Bussers Food Runners Relationship Specialty Start Date End Date Gaby Fleming MD [address] [place] [address] PCP - General 01/29/06 documented as of this encounter
--- OUTSIDE RECORDS SUMMARY | 2024-07-28 09:29 | XMS_ITS | Encounter Summary ---
Author Organization [facility] Address [address] [place] [address] Care Team Providers Care Sales Order Administrator Name Role Phone Gaby Fleming MD Primary Care Provider [phone] Encounter Details Date Type Department Care Team [...] filedocumented in this encounter Care Teams Sales Order Administrator Relationship Specialty Start Date End Date Gaby Fleming MD [address] [place] [address] PCP - General 01/29/06 documented as of this encounter
--- OUTSIDE RECORDS SUMMARY | 2024-07-28 09:29 | XMS_ITS | Encounter Summary ---
Author Organization [facility] Address [address] [place] [address] Care Team Providers Care Soils Engineer Name Role Phone Gaby Fleming MD Primary Care Provider [phone] Encounter Details Date Type Department Care Team (Late st Contact Info) Description 03/28/2015 Correspondence [facility] [address] [place] [address] Gaby Fleming MD [address] [place] [address] DME EQUIPMENT PROOF OF DELIVERY Social [...] on filedocumented in this encounter Care Teams Soils Engineer Relationship Specialty Start Date End Date Gaby Fleming MD [address] [facility] [place] [address] PCP - General 01/29/06 documented as of this encounter
--- OUTSIDE RECORDS SUMMARY | 2024-07-28 09:29 | XMS_ITS | Encounter Summary ---
Author Organization [facility] Address [address] [place] [address] Care Team Providers Care Airplane Cover Maker Name Role Phone Gaby Fleming MD Primary Care Provider [phone] Encounter Details Date Type Department Care Team (Late st Contact Info) Description 07/17/2015 Correspondence None No Primary/Referring, Phy HME EQUIPMENT SUPERVISOR TUBING TICKET CPAP Social History Tobacco Use Types [...] on filedocumented in this encounter Care Teams Airplane Cover Maker Relationship Specialty Start Date End Date Gaby Fleming MD [address] [place] [address] PCP - General 01/29/06 documented as of this encounter
--- OUTSIDE RECORDS SUMMARY | 2024-07-28 09:29 | XMS_ITS | Encounter Summary ---
Author Organization [facility] Address [address] [place] [address] Care Team Providers Care Commercial Real Estate Broker Name Role Phone Gaby Fleming MD Primary Care Provider [phone] Encounter Details Date Type Department Care Team (Latest Contact Info) Description 08/19/1994 Orders Only Myrna Armas [address] [address] Social History Tobacco Use Types Packs/Day Years [...] on filedocumented in this encounter Care Teams Commercial Real Estate Broker Relationship Specialty Start Date End Date Gaby Fleming MD [address] [place] [address] PCP - General 01/29/06 documented as of this encounter
--- OUTSIDE RECORDS SUMMARY | 2024-07-28 09:29 | XMS_ITS | Encounter Summary ---
Author Organization [facility] Address [address] [place] [address] Care Team Providers Care Wet Room Worker Name Role Phone Gaby Fleming MD Primary Care Provider [phone] Encounter Details Date Type Department Care Team (Latest Contact Info) Description 08/15/1994 Orders Only Myrna Armas [address] [address] Social History Tobacco Use Types Packs/Day Years [...] on filedocumented in this encounter Care Teams Wet Room Worker Relationship Specialty Start Date End Date Gaby Fleming MD [address] [place] [address] PCP - General 01/29/06 documented as of this encounter
--- OUTSIDE RECORDS SUMMARY | 2024-07-28 09:29 | XMS_ITS | Encounter Summary ---
[facility] Address [address] [place] [address] Care Team Providers Care Narcotics And Vice Detective Name Role Phone Gaby Fleming MD Primary Care Provider [phone] Encounter Details Date Type Department Care Team (Latest Contact Info) Description 11/22/2013 Correspondence [facility] Partial Hospitalization Program [address] [place] [address] [facility] [employer] Social History Tobacco Use Types [...] on filedocumented in this encounter Care Teams Narcotics And Vice Detective Relationship Specialty Start Date End Date Gaby Fleming MD [address] [place] [address] PCP - General 01/29/06 documented as of this encounter
--- OUTSIDE RECORDS SUMMARY | 2024-07-28 09:29 | XMS_ITS | Encounter Summary ---
Author Organization [facility] Address [address] [place] [address] Care Team Providers Care Hand Chain Maker Name Role Phone Gaby Fleming MD Primary Care Provider [phone] Encounter Details Date Type Department Care Team (Late st Contact Info) Description 04/06/2015 Correspondence None No Primary/Referring, Phy HME EQUIPMENT TUMBLER DRIER OPERATOR TICKET Social History Tobacco Use Types Packs/Day [...] filedocumented in this encounter Care Teams Hand Chain Maker Relationship Specialty Start Date End Date Gaby Fleming MD [address] [place] [address] PCP - General 01/29/06 documented as of this encounter
--- NOTE | 2024-07-28 09:35 | ED.GENADULT ---
HPI - General Adult General Chief complaint: Weakness Stated complaint: weakness Time Seen by Provider: 07/28/24 09:34 History of Present Illness HPI narrative: Was seen in ED 07/26. Called EMS this morning for weakness, severe cough. Daughter recently with influenza. EMS administered 1000mg Tylenol, DuoNeb. Blood glucose 153.Was seen in ED 07/26. Called EMS this morning for weakness, severe cough. Daughter recently with influenza. EMS administered 1000mg Tylenol, DuoNeb. Blood glucose 153. 69-year-old woman presenting to the emergency department with concern of cough weakness and shortness of breath. Reports an underlying history of asthma. Does have sleep apnea and uses CPAP. Brought by EMS. When EMS arrived gave acetaminophen as well as a DuoNeb. Rise to ER satting 87% on room air. Placed on L of oxygen. Has not had a fever but notes that she did have a fever when she was seen 2 days ago in the emergency department where she was diagnosed with gastroenteritis. Chest x-ray at that time was absent acute disease. She is having some chest discomfort with breathing. Abdominal pain is noted as well and she says that that is chronic though in that she has chronic diarrhea. Exposures where daughter with influenza recently. Blood pressures are noted to be low. She says this is chronic. Reviewing later I am less convinced that she is using her CPAP regularly. Related Data Home Medications ?Medication ?Instructions ?Recorded ?Confirmed loperamide 2 mg capsule 4 mg PO QID PRN 10/02/21 07/28/24 montelukast 10 mg tablet 10 mg PO HS 10/02/21 07/28/24 albuterol sulfate 90 mcg/actuation 2 puff inhalation Q4H PRN 06/07/22 07/28/24 aerosol inhaler cevimeline 30 mg capsule 1 cap PO TID 06/07/22 07/28/24 lorazepam 0.5 mg tablet 0.5 mg PO DAILY PRN 06/07/22 07/28/24 dicyclomine 10 mg capsule 10 mg PO Q6H PRN cramps 08/10/22 07/28/24 dextroamphetamine-amphetamine ER 1 cap PO DAILY 09/20/22 07/28/24 10 mg 24hr capsule,extend release divalproex 500 mg tablet,delayed 2,000 mg PO DAILY 09/20/22 07/28/24 release doxepin 10 mg capsule 10 mg PO DAILY 09/20/22 07/28/24 famotidine 40 mg tablet 40 mg PO HS 06/17/24 07/28/24 fluticasone 500 mcg-salmeterol 50 1 inh inhalation BID 06/17/24 07/28/24 mcg/dose blistr powdr for inhalation omeprazole 40 mg capsule,delayed 40 mg PO DAILY 06/17/24 07/28/24 release calcium 600 mg (as 1 tab PO BID 07/28/24 07/28/24 carbonate)-vitamin D3 10 mcg (400 unit) tablet metoprolol succinate 25 mg 25 mg PO DAILY 07/28/24 07/28/24 tablet,extended release 24 hr trazodone 150 mg tablet 75 mg PO HS 07/28/24 07/28/24 dextroamphetamine-amphetamine 10 1 tab PO DAILY 07/29/24 07/29/24 mg tablet guanfacine 1 mg tablet 1 mg PO QPM 07/29/24 07/29/24 Previous Rx's ?Medication ?Instructions ?Recorded azithromycin 250 mg tablet 250 mg PO DAILY 1 day #1 tab 07/31/24 codeine 10 mg-guaifenesin 100 mg/5 10 ml PO QID PRN 7 days #250 mL 07/31/24 mL oral liquid guaifenesin 600 mg tablet, 600 mg PO BID 14 days #28 tabs 07/31/24 extended release 12 hr (Mucinex) prednisone 20 mg tablet 20 mg PO DAILYWM 3 days #3 tabs 07/31/24 venlafaxine 75 mg capsule,extended 300 mg (4 x 75 mg) PO DAILY 30 07/31/24 release 24 hr days #60 caps Allergies Allergy/AdvReac Type Severity Reaction Status Date / Time nitrofurantoin Allergy Unknown Verified 06/25/24 10:04 Iodinated Contrast Media AdvReac Rash Verified 07/26/24 12:57 Sulfa (Sulfonamide AdvReac Rash Verified 07/26/24 12:57 Antibiotics) 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 Severe Anaphylaxis Uncoded 06/17/24 12:31 Ioxaglate sodium Allergy Unknown Uncoded 06/17/24 12:31 Review of Systems Status of ROS: Reports: 6 or more systems reviewed and unremarkable except as noted in History and below [facility] Medical History (Updated 08/03/24 @ 00:01 by Background Daemon) UTI (urinary tract infection) ?N39.0 - Urinary tract infection, site not specified (ICD-10) Steroid long-term use Tear of medial meniscus of right knee ?S83.241A - Other tear of medial meniscus, current injury, right knee, initial encounter (ICD-10) Osteoarthritis of right knee ?M17.11 - Unilateral primary osteoarthritis, right knee (ICD-10) Irritable bowel syndrome ?K58.9 - Irritable bowel syndrome without diarrhea (ICD-10) Physical deconditioning ?R53.81 - Other malaise (ICD-10) Chronic diarrhea ?K52.9 - Noninfective gastroenteritis and colitis, unspecified (ICD-10) Anxiety ?F41.9 - Anxiety disorder, unspecified (ICD-10) History of prediabetes ?Z87.898 - Personal history of other specified conditions (ICD-10) History of major depression ?Z86.59 - Personal history of other mental and behavioral disorders (ICD-10) Surgical History (Updated 08/03/24 @ 00:01 by Background Daemon) S/P ORIF (open reduction internal fixation) fracture (08/10/22) ?Z98.890 - Other specified postprocedural states (ICD-10) ?Z87.81 - Personal history of (healed) traumatic fracture (ICD-10) History of loop recorder (03/17/19) ?Z98.890 - Other specified postprocedural states (ICD-10) History of partial thyroidectomy (1999) ?E89.0 - Postprocedural hypothyroidism (ICD-10) History of cholecystectomy (1983) ?Z90.49 - Acquired absence of other specified parts of digestive tract (ICD-10) History of bladder suspension procedure (2014) ?Z98.890 - Other specified postprocedural states (ICD-10) ?Z87.448 - Personal history of other diseases of urinary system (ICD-10) Family History Mother Alcoholism Social History Narrative: Nonsmoker. Does not exercise. . 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 She lives with her daughter who has mental disability-?Autism What is your current living situation?: I presently have a place to live Problems where you live: no known problems Problems where you live details: n/a In the past 12 months, utilities in danger of being shut off: no In past 12 months, lack of transportation kept you from medical appts, meetings, work, or getting things needed for daily living: no In the past 12 mos, have been you worried that your food would run out before you had money to buy more?: never true In the past 12 mos, the food you bought just didn't last and you didn't have money to buy more?: never true Highest level of school completed/degree received: Master's degree Smoking Status: Never smoker Do you use any of these nicotine containing products: None Second hand tobacco smoke exposure: No How often do you have a drink containing alcohol: never AUDIT-C Alcohol total score: 0 Non-prescribed substance use: denies use Caffeine: No How often does anyone, including family, friends and others, physically hurt you: never How often does anyone, including family, friends and others, insult or talk down to you: never How often does anyone, including family, friends and others, threaten you with harm: never How often does anyone, including family, friends and others, scream or curse at you: never service: No Exam Narrative: Exam Narrative: Shock of neon green dyed hair. Appears little tired. Lungs are generally congested but without wheeze. Good air movement. Abdomen is soft and overweight diffusely mildly uncomfortable to palpation. Heart is in elevated but regular rate. Drifts off to near sleep very easily. Const: Vital Signs, click to edit/add: Vital Signs - 24 hr 07/28/24 09:28 07/28/24 09:29 07/28/24 09:31 Temperature 98.4 F Pulse Rate 103 H Pulse Rate [Pulse Oximeter] 101 H Respiratory Rate 18 Blood Pressure 117/107 H Blood Pressure [Le ft Upper Arm] 100/64 Pulse Oximetry 94 93 95 Oxygen Delivery Me thod Nasal Cannula Nasal Cannula Nasal Cannula Oxygen Flow Rate 1 1 07/28/24 09:31 07/28/24 09:32 07/28/24 09:55 Temperature Pulse Rate 97 102 H Pulse Rate [Pulse Oximeter] Respiratory Rate Blood Pressure 100/64 Blood Pressure [Le ft Upper Arm] Pulse Oximetry 94 95 93 Oxygen Delivery Me thod Nasal Cannula Nasal Cannula Oxygen Flow Rate 1 1 07/28/24 09:55 07/28/24 10:13 07/28/24 10:15 Temperature Pulse Rate 91 88 Pulse Rate [Pulse Oximeter] Respiratory Rate Blood Pressure 90/51 L Blood Pressure [Le ft Upper Arm] Pulse Oximetry 93 90 90 Oxygen Delivery Me thod Room Air Room Air Room Air Oxygen Flow Rate 07/28/24 10:16 07/28/24 10:17 07/28/24 10:30 Temperature Pulse Rate 91 91 104 H Pulse Rate [Pulse Oximeter] Respiratory Rate Blood Pressure 92/49 L Blood Pressure [Le ft Upper Arm] Pulse Oximetry 90 92 90 Oxygen Delivery Me thod Room Air Oxygen Flow Rate 07/28/24 10:32 07/28/24 11:01 07/28/24 11:21 Temperature Pulse Rate 91 87 88 Pulse Rate [Pulse Oximeter] Respiratory Rate Blood Pressure 93/64 94/43 L 87/63 L Blood Pressure [Le ft Upper Arm] Pulse Oximetry 90 92 90 Oxygen Delivery Me thod Room Air Room Air Oxygen Flow Rate 07/28/24 11:30 07/28/24 11:31 07/28/24 11:42 Temperature Pulse Rate 95 93 84 Pulse Rate [Pulse Oximeter] Respiratory Rate Blood Pressure 90/35 L 94/43 L Blood Pressure [Le ft Upper Arm] Pulse Oximetry 90 90 91 Oxygen Delivery Me thod Room Air Room Air Room Air Oxygen Flow Rate 07/28/24 11:45 07/28/24 12:00 07/28/24 12:15 Temperature Pulse Rate 84 81 79 Pulse Rate [Pulse Oximeter] Respiratory Rate Blood Pressure Blood Pressure [Le ft Upper Arm] Pulse Oximetry 90 91 92 Oxygen Delivery Me thod Room Air Room Air Room Air Oxygen Flow Rate 07/28/24 12:24 07/28/24 12:30 07/28/24 12:45 Temperature Pulse Rate 78 85 88 Pulse Rate [Pulse Oximeter] Respiratory Rate Blood Pressure Blood Pressure [Le ft Upper Arm] Pulse Oximetry 92 92 90 Oxygen Delivery Me thod Oxygen Flow Rate 07/28/24 12:46 07/28/24 12:47 07/28/24 13:00 Temperature Pulse Rate 76 75 74 Pulse Rate [Pulse Oximeter] Respiratory Rate Blood Pressure 101/50 L Blood Pressure [Le ft Upper Arm] Pulse Oximetry 93 91 93 Oxygen Delivery Me thod Oxygen Flow Rate 07/28/24 13:01 07/28/24 13:15 07/28/24 13:30 Temperature Pulse Rate 76 73 75 Pulse Rate [Pulse Oximeter] Respiratory Rate Blood Pressure 90/59 L Blood Pressure [Le ft Upper Arm] Pulse Oximetry 92 93 94 Oxygen Delivery Me thod Oxygen Flow Rate 07/28/24 13:42 07/28/24 13:45 Temperature Pulse Rate 71 72 Pulse Rate [Pulse Oximeter] Respiratory Rate Blood Pressure 103/62 Blood Pressure [Le ft Upper Arm] Pulse Oximetry 91 94 Oxygen Delivery Me thod Oxygen Flow Rate Documenting provider has reviewed patient's vital signs: yes Course Vital Signs Vital signs: Initial Vital Signs Temperature 98.4 F 07/28/24 09:28 Temperature Source Temporal Artery Scan 07/28/24 09:28 Pulse Rate 101 H 07/28/24 09:28 Respiratory Rate 18 07/28/24 09:28 Blood Pressure 100/64 07/28/24 09:28 Blood Pressure Mean 76 07/28/24 09:28 Blood Pressure Position Semi-Fowlers 07/28/24 09:28 Pulse Oximetry 94 07/28/24 09:28 Oxygen Delivery Method Nasal Cannula 07/28/24 09:28 Vital Signs Temperature 98.4 F 07/28/24 09:28 Pulse Rate 101 H 07/28/24 09:28 Respiratory Rate 18 07/28/24 09:28 Blood Pressure 100/64 07/28/24 09:28 Pulse Oximetry 94 07/28/24 09:28 Oxygen Delivery Method Nasal Cannula 07/28/24 09:28 Temperature 97.9 F 07/31/24 09:02 Pulse Rate 67 07/31/24 09:02 Respiratory Rate 18 07/31/24 09:02 Blood Pressure 126/96 H 07/31/24 09:02 Pulse Oximetry 93 07/31/24 09:02 Oxygen Delivery Method Room Air 07/31/24 09:02 Oxygen Flow Rate 0 07/31/24 01:00 Medications Administered Medications: Discontinued Medications Generic Name Dose Route Start Last Admin Trade Name Freq PRN Reason Stop Dose Admin Acetaminophen 650 mg 07/28/24 16:04 07/28/24 23:47 Acetaminophen 325 Mg Tablet PO 650 mg Q4H PRN Administration Albuterol 2.5 mg 07/28/24 10:49 07/28/24 11:08 Albuterol Sulfate 2.5 Mg/3 Ml Vial.Neb NEB 07/28/24 10:50 2.5 mg ONCE ONE Administration Albuterol 2.5 mg 07/29/24 09:20 07/31/24 13:20 Albuterol Sulfate 2.5 Mg/3 Ml Vial.Neb NEB 2.5 mg Q4H ELIZABETH Administration Azithromycin 500 mg 07/28/24 16:06 07/28/24 16:42 Azithromycin 250 Mg Tablet PO 07/28/24 16:07 500 mg ONCE ONE Administration Azithromycin 500 mg 07/29/24 09:00 07/31/24 09:05 Azithromycin 250 Mg Tablet PO 500 mg DAILY ELIZABETH Administration Benzonatate 200 mg 07/29/24 09:00 07/29/24 09:20 Benzonatate 100 Mg Capsule PO 200 mg TID ELIZABETH Administration Divalproex Sodium 2,000 mg 07/29/24 09:00 07/31/24 09:04 Divalproex Delayed Release 250 Mg Tablet PO 2,000 mg DAILY ELIZABETH Administration Famotidine 40 mg 07/28/24 21:00 07/30/24 20:25 Famotidine 20 Mg Tablet PO 40 mg HS ELIZABETH Administration Guaifenesin 600 mg 07/29/24 09:22 07/31/24 09:05 Guaifenesin 600 Mg Tab.Er.12h PO 600 mg BID ELIZABETH Administration Guaifenesin/Codeine Phosphate 10 ml 07/29/24 08:53 07/31/24 12:02 Guaif/Codeine 200/20mg/10 Ml Solution PO 10 ml QID PRN Administration Guaifenesin/Dextromethorphan 20 ml 07/28/24 16:04 07/29/24 04:31 Guaif/Dm 200-20 Mg/20 Ml 118 Ml Liquid PO 20 ml Q4H PRN Administration Hydrocortisone Acetate 20 mg 07/28/24 18:00 07/30/24 09:48 Hydrocortisone 10 Mg Tablet PO Not Given BIDWM ELIZABETH Sodium Chloride 1,000 mls @ 1,000 mls/hr 07/28/24 11:15 07/28/24 12:41 0.9 % Sodium Chloride 1000 Ml IV 07/28/24 12:14 Infused .Q1H ONE Infusion Ceftriaxone Sodium 1 gm/ 100 mls @ 200 mls/hr 07/28/24 13:19 07/28/24 14:20 Sodium Chloride IVPB 07/28/24 13:20 Infused ONCE ONE Infusion Ceftriaxone Sodium 1 gm/ 100 mls @ 200 mls/hr 07/29/24 09:00 07/31/24 10:03 Sodium Chloride IVPB Infused Q24H ELIZABETH Infusion Melatonin 3 mg 07/28/24 16:04 07/30/24 20:26 Melatonin 3 Mg Tablet PO 3 mg HS PRN Administration Metoprolol Succinate 25 mg 07/29/24 09:00 07/31/24 09:05 Metoprolol Succinate (Xl) 25 Mg Tab PO 25 mg DAILY ELIZABETH Administration Montelukast Sodium 10 mg 07/28/24 21:00 07/30/24 20:25 Montelukast 10 Mg Tablet PO 10 mg HS ELIZABETH Administration Doxepin 10 Mg 10 mg 07/29/24 09:00 07/31/24 09:14 Capsule PO Not Given DAILY ELIZABETH Fluticasone Propion- 1 inhalation 07/28/24 21:00 07/31/24 09:13 Salmeterol 500-50 IH Not Given Mcg/Dose BID ELIZABETH Omeprazole 40 mg 07/29/24 07:00 07/31/24 06:18 Omeprazole [address] PO 40 mg DAILY@0700 ELIZABETH Administration Prednisone 20 mg 07/30/24 09:18 07/30/24 11:22 Prednisone 20 Mg Tablet PO 07/30/24 09:19 20 mg ONCE ONE Administration Prednisone 20 mg 07/31/24 08:00 07/31/24 09:05 Prednisone 20 Mg Tablet PO 08/03/24 09:00 20 mg DAILYWM ELIZABETH Administration Sodium Chloride 5 ml 07/28/24 21:00 07/31/24 09:14 Sodium Chloride 0.9 % (Flush) 10 Ml Syringe IVF 5 ml BID ELIZABETH Administration Sodium Chloride 250 ml 07/29/24 09:15 07/31/24 09:14 0.9 % Sodium Chloride 250 Ml IV Not Given Q24H ELIZABETH Trazodone HCl 75 mg 07/28/24 21:00 07/30/24 20:25 Trazodone Hcl 50 Mg Tablet PO 75 mg HS ELIZABETH Administration Venlafaxine HCl 300 mg 07/29/24 09:00 07/31/24 09:04 Venlafaxine Er 75 Mg Capsule PO 300 mg DAILY ELIAZBETH Administration Medical Decision Making MDM Narrative Medical decision making narrative: Chest x-ray independently reviewed by me seems to show some perihilar and generalized congestion that I would think more typical with viral process. White count is notably elevated however at over 17,000. This is a marked increased from prior. Received now viewed oral neb with continued low oxygen saturations. With continued low blood pressures though she notes that these are not abnormal, I did initiate a L of IV fluids. Radiology over-read of images below INDICATION: Cough and hypoxia TECHNIQUE: Chest 2 views. COMPARISON: Chest radiograph 07/26/2024 FINDINGS: Cardiovascular and mediastinum: Cardiomediastinal silhouette is stable. Lungs and pleural spaces: Mild perihilar prominence. No focal consolidation. Elevation of the right hemidiaphragm is similar compared to prior. No pneumothorax or pleural effusion. Bones and soft tissues: Loop recorder in the left chest wall. IMPRESSION: New mild perihilar prominence can be seen with mild pulmonary edema or viral infection. Dictated by Sneha Ny MD @ 07/28/2024 10:17:52 AM Lactate is normal, reassuring. Blood cultures were also collected. I have ordered for g of Rocephin presuming some pulmonary source. I think it would be reasonable to initiate antibiotic treatment Does not meet criteria for sepsis but SIRS MAP maintained above 60 Ambulated with oxygen saturations around 92-93%. She still feels weak. Does not feel she can managed at home with combination of shortness of breath, weakness and cough. Per inquiry by hospitalist did ask about whether not she is taking hydrocortisone and fludrocortisone a setting of her history of Harper's. She says she is under the impression that she is not to be taking this medication and so has not been. Medical Records Medical records reviewed: Yes I reviewed the patient's medical records Lab Data Lab results reviewed: Yes I reviewed the patient's lab results Labs: Lab Results 07/28/24 07/28/24 07/28/24 Range/Units 09:29 09:39 10:35 WBC 17.73 H (4.50-11.00) K/uL RBC 3.76 L (4.00-5.20) m/uL Hgb 11.6 L (12.0-16.0) gm/dL Hct 35.1 (33.0-51.0) % MCV 93 (80-100) fL MCH 31 (26-34) pg MCHC 33 (32-36) gm/dL RDW Coeff of Quirino 12.8 (11.5-15.5) % Plt Count 225 (140-440) K/uL Neut % (Auto) 83.5 H (42.0-72.0) % Lymph % (Auto) 6.7 L (20-44) % Mcdonough % (Auto) 8.9 (0.0-11.0) % Eos % (Auto) 0.0 (0.0-7.0) % Baso % (Auto) 0.2 (0.0-3.0) % Neut # (Auto) 14.80 H (1.7-7.0) K/uL Lymph # (Auto) 1.20 (0.90-2.90) K/uL Mcdonough # (Auto) 1.60 H (0.00-0.90) K/UL Eos # (Auto) 0.00 (0.00-0.50) K/uL Baso # (Auto) 0.00 (0.00-0.30) K/uL Abs Immat Gran (auto) 0.10 (0.00-0.30) K/uL Imm/Tot Granulo (auto) 0.7 % D-Dimer Quant (PE/DVT) 0.95 H (0.00-0.50) ug/ml VBG pH 7.376 (7.32-7.43) VBG pCO2 49 (40-50) mmHG VBG pO2 34.3 (25-47) mmHG VBG HCO3 29 H (21-28) mmol/L Sodium 130 L (135-149) mmol/L Potassium 4.0 (3.6-5.1) mmol/L Chloride 95 L (96-114) mmol/L Carbon Dioxide 28 (20-32) mmol/L Anion Gap 7 (7-15) mEq/L BUN 14 (7-30) mg/dL Creatinine 0.9 (0.5-1.5) mg/dL Estimated Creat Clear 43.18 Estimated GFR 70 ml/min Glucose 112 (60-115) mg/dL Lactate (0.5-1.9) mmol/L Calcium 8.4 (8.4-10.6) mg/dL Troponin I < 0.01 (0.01-0.04) ng/mL C-Reactive Protein 6.4 H (0.5-1.0) mg/dL Procalcitonin 2.47 H (<0.50) ng/mL TSH 0.998 (0.270-4.20) uIU/mL Urine L. pneumophilia Ag (Negative) Urine Strep pneumoniae Ag (Negative) Bordetella pertussis Spec Source SARS-CoV-2 (PCR) Negative SARS-CoV-2 (Negative) Influenza Type A (PCR) Negative PCR FLU A (Negative) Influenza Type B (PCR) Negative PCR FLU B (Negative) RSV (PCR) Negative PCR RSV (Negative) Bordetella pertussis (PCR) B parapertussis DNA PCR Lab Acknowledgement Test Added 07/28/24 07/28/24 07/28/24 Range/Units 12:03 13:44 14:13 WBC (4.50-11.00) K/uL RBC (4.00-5.20) m/uL Hgb (12.0-16.0) gm/dL Hct (33.0-51.0) % MCV (80-100) fL MCH (26-34) pg MCHC (32-36) gm/dL RDW Coeff of Quirino (11.5-15.5) % Plt Count (140-440) K/uL Neut % (Auto) (42.0-72.0) % Lymph % (Auto) (20-44) % Mcdonough % (Auto) (0.0-11.0) % Eos % (Auto) (0.0-7.0) % Baso % (Auto) (0.0-3.0) % Neut # (Auto) (1.7-7.0) K/uL Lymph # (Auto) (0.90-2.90) K/uL Mcdonough # (Auto) (0.00-0.90) K/UL Eos # (Auto) (0.00-0.50) K/uL Baso # (Auto) (0.00-0.30) K/uL Abs Immat Gran (auto) (0.00-0.30) K/uL Imm/Tot Granulo (auto) % D-Dimer Quant (PE/DVT) (0.00-0.50) ug/ml VBG pH (7.32-7.43) VBG pCO2 (40-50) mmHG VBG pO2 (25-47) mmHG VBG HCO3 (21-28) mmol/L Sodium (135-149) mmol/L Potassium (3.6-5.1) mmol/L Chloride (96-114) mmol/L Carbon Dioxide (20-32) mmol/L Anion Gap (7-15) mEq/L BUN (7-30) mg/dL Creatinine (0.5-1.5) mg/dL Estimated Creat Clear Estimated GFR ml/min Glucose (60-115) mg/dL Lactate 1.8 (0.5-1.9) mmol/L Calcium (8.4-10.6) mg/dL Troponin I (0.01-0.04) ng/mL C-Reactive Protein (0.5-1.0) mg/dL Procalcitonin (<0.50) ng/mL TSH (0.270-4.20) uIU/mL Urine L. pneumophilia Ag (Negative) Urine Strep pneumoniae Ag (Negative) Bordetella pertussis Spec Source SARS-CoV-2 (PCR) (Negative) Influenza Type A (PCR) (Negative) Influenza Type B (PCR) (Negative) RSV (PCR) (Negative) Bordetella pertussis (PCR) B parapertussis DNA PCR Lab Acknowledgement Test Added Test Added 07/28/24 07/28/24 07/29/24 Range/Units 16:15 Unknown 06:10 WBC 8.87 (4.50-11.00) K/uL RBC 3.45 L (4.00-5.20) m/uL Hgb 10.6 L (12.0-16.0) gm/dL Hct 32.4 L (33.0-51.0) % MCV 94 (80-100) fL MCH 31 (26-34) pg MCHC 33 (32-36) gm/dL RDW Coeff of Quirino 13.0 (11.5-15.5) % Plt Count 201 (140-440) K/uL Neut % (Auto) 65.1 (42.0-72.0) % Lymph % (Auto) 24.6 (20-44) % Mcdonough % (Auto) 9.7 (0.0-11.0) % Eos % (Auto) 0.1 (0.0-7.0) % Baso % (Auto) 0.2 (0.0-3.0) % Neut # (Auto) 5.77 (1.7-7.0) K/uL Lymph # (Auto) 2.18 (0.90-2.90) K/uL Mcdonough # (Auto) 0.90 (0.00-0.90) K/UL Eos # (Auto) 0.01 (0.00-0.50) K/uL Baso # (Auto) 0.02 (0.00-0.30) K/uL Abs Immat Gran (auto) 0.03 (0.00-0.30) K/uL Imm/Tot Granulo (auto) 0.3 % D-Dimer Quant (PE/DVT) (0.00-0.50) ug/ml VBG pH (7.32-7.43) VBG pCO2 (40-50) mmHG VBG pO2 (25-47) mmHG VBG HCO3 (21-28) mmol/L Sodium 136 (135-149) mmol/L Potassium 3.6 (3.6-5.1) mmol/L Chloride 100 (96-114) mmol/L Carbon Dioxide 29 (20-32) mmol/L Anion Gap 7 (7-15) mEq/L BUN 15 (7-30) mg/dL Creatinine 0.7 (0.5-1.5) mg/dL Estimated Creat Clear 43.18 Estimated GFR 95 ml/min Glucose 96 (60-115) mg/dL Lactate (0.5-1.9) mmol/L Calcium 8.3 L (8.4-10.6) mg/dL Troponin I (0.01-0.04) ng/mL C-Reactive Protein 14.6 H (0.5-1.0) mg/dL Procalcitonin (<0.50) ng/mL TSH (0.270-4.20) uIU/mL Urine L. pneumophilia Ag L. pneumo Negative (Negative) Urine Strep pneumoniae Ag S. pneumo Negative (Negative) Bordetella pertussis Spec Source Not Provided SARS-CoV-2 (PCR) (Negative) Influenza Type A (PCR) (Negative) Influenza Type B (PCR) (Negative) RSV (PCR) (Negative) Bordetella pertussis (PCR) Not Detected B parapertussis DNA PCR Not Detected Lab Acknowledgement 07/29/24 Range/Units 10:05 WBC (4.50-11.00) K/uL RBC (4.00-5.20) m/uL Hgb (12.0-16.0) gm/dL Hct (33.0-51.0) % MCV (80-100) fL MCH (26-34) pg MCHC (32-36) gm/dL RDW Coeff of Quirino (11.5-15.5) % Plt Count (140-440) K/uL Neut % (Auto) (42.0-72.0) % Lymph % (Auto) (20-44) % Mcdonough % (Auto) (0.0-11.0) % Eos % (Auto) (0.0-7.0) % Baso % (Auto) (0.0-3.0) % Neut # (Auto) (1.7-7.0) K/uL Lymph # (Auto) (0.90-2.90) K/uL Mcdonough # (Auto) (0.00-0.90) K/UL Eos # (Auto) (0.00-0.50) K/uL Baso # (Auto) (0.00-0.30) K/uL Abs Immat Gran (auto) (0.00-0.30) K/uL Imm/Tot Granulo (auto) % D-Dimer Quant (PE/DVT) (0.00-0.50) ug/ml VBG pH (7.32-7.43) VBG pCO2 (40-50) mmHG VBG pO2 (25-47) mmHG VBG HCO3 (21-28) mmol/L Sodium (135-149) mmol/L Potassium (3.6-5.1) mmol/L Chloride (96-114) mmol/L Carbon Dioxide (20-32) mmol/L Anion Gap (7-15) mEq/L BUN (7-30) mg/dL Creatinine (0.5-1.5) mg/dL Estimated Creat Clear Estimated GFR ml/min Glucose (60-115) mg/dL Lactate (0.5-1.9) mmol/L Calcium (8.4-10.6) mg/dL Troponin I (0.01-0.04) ng/mL C-Reactive Protein (0.5-1.0) mg/dL Procalcitonin (<0.50) ng/mL TSH (0.270-4.20) uIU/mL Urine L. pneumophilia Ag (Negative) Urine Strep pneumoniae Ag (Negative) Bordetella pertussis Spec Source SARS-CoV-2 (PCR) (Negative) Influenza Type A (PCR) (Negative) Influenza Type B (PCR) (Negative) RSV (PCR) (Negative) Bordetella pertussis (PCR) B parapertussis DNA PCR Lab Acknowledgement Test Added ECG Data Attestation: I personally reviewed and interpreted this ECG as follows: (Normal sinus rhythm at a rate of 95. Similar to prior) Discharge Plan Discharge Clinical Impression: Weakness, Hypoxia, URI (upper respiratory infection) Patient Disposition: Admitted As Observation Condition: Improved Activity Level: Activity as Tolerated and Other Activity Detail: All activities are to be undertaken safely. Discharge Diet: Heart Healthy (2 gm sodium, low fat)
--- NOTE | 2024-07-28 09:53 | CRLHL7_ITS ---
For Patients: As a result of the Century Cures Act, medical imaging exams and procedure reports are released immediately into your electronic medical record. You may view this report before your referring provider. If you have questions, please contact your health care provider. INDICATION: Cough and hypoxia TECHNIQUE: Chest 2 views. COMPARISON: Chest radiograph 07/26/2024 FINDINGS: Cardiovascular and mediastinum: Cardiomediastinal silhouette is stable. Lungs and pleural spaces: Mild perihilar prominence. No focal consolidation. Elevation of the right hemidiaphragm is similar compared to prior. No pneumothorax or pleural effusion. Bones and soft tissues: Loop recorder in the left chest wall. IMPRESSION: New mild perihilar prominence can be seen with mild pulmonary edema or viral infection. Dictated by Sneha Ny MD @ 07/28/2024 10:17:52 AM (Electronically Signed)
--- OUTSIDE RECORDS SUMMARY | 2024-07-28 10:04 | XMS_ITS | Encounter Summary ---
[facility] Address [address] [place] [address] Care Team Providers Care Drill Rig Operator Name Role Phone Gaby Fleming MD Primary Care Provider [phone] Encounter Details Date Type Department Care Team [...] on filedocumented in this encounter Care Teams Drill Rig Operator Relationship Specialty Start Date End Date Gaby Fleming MD [address] [place] [address] PCP - General 01/29/06 documented as of this encounter
--- OUTSIDE RECORDS SUMMARY | 2024-07-28 10:04 | XMS_ITS | Encounter Summary ---
Author Organization [facility] Address [address] [place] [address] Care Team Providers Care Principal Engineer Name Role Phone Gaby Fleming MD Primary Care Provider +[phone] Encounter Details Date Type Department Care Team (Latest Contact Info) Description 06/06/1995 Orders Only [place] [address] Social History Tobacco Use Types Packs/Day Years [...] filedocumented in this encounter Care Teams Principal Engineer Relationship Specialty Start Date End Date Gaby Fleming MD [address] [place] [address] PCP - General 01/29/06 documented as of this encounter
--- OUTSIDE RECORDS SUMMARY | 2024-07-28 10:04 | XMS_ITS | Encounter Summary ---
Author Organization [facility] Address [address] [place] [address] Care Team Providers Care Food Porter Name Role Phone Gaby Fleming MD Primary Care Provider [phone] Encounter Details Date Type Department Care Team (Latest Contact Info) Description 05/25/1998 Orders Only Karan Garcia MD [address] [place] [address] Social History Tobacco Use Types Packs/Day Years [...] on filedocumented in this encounter Care Teams Food Porter Relationship Specialty Start Date End Date Gaby Fleming MD [address] [place] [address] PCP - General 01/29/06 documented as of this encounter
--- OUTSIDE RECORDS SUMMARY | 2024-07-28 10:04 | XMS_ITS | Encounter Summary ---
[facility] Address [address] [place] [address] Care Team Providers Care Net Wpf Developer Name Role Phone Gaby Fleming MD Primary Care Provider +[phone] Encounter Details Date Type Department Care Team [...] on filedocumented in this encounter Care Teams Net Wpf Developer Relationship Specialty Start Date End Date Gaby lFeming MD [address] [place] [address] PCP - General 01/29/06 documented as of this encounter
--- OUTSIDE RECORDS SUMMARY | 2024-07-28 10:04 | XMS_ITS | Encounter Summary ---
Author Organization [facility] Address [address] [place] [address] Care Team Providers Care Tax Compliance Representative Name Role Phone Gaby Fleming MD Primary Care Provider [phone] Encounter Details Date Type Department Care Team (Latest Contact Info) Description 01/05/1998 Orders Only Arielle Caraballo, DO [address] [place] [address] Social History Tobacco Use Types Packs/Day Years [...] on filedocumented in this encounter Care Teams Tax Compliance Representative Relationship Specialty Start Date End Date Gaby Fleming MD [address] [place] [address] PCP - General 01/29/06 documented as of this encounter
--- OUTSIDE RECORDS SUMMARY | 2024-07-28 10:04 | XMS_ITS | Encounter Summary ---
Author Organization [facility] Address [address] [place] [address] Care Team Providers Care Plastics Fitter Name Role Phone Gaby Fleming MD Primary Care Provider [phone] Encounter Details Date Type Department Care Team [...] on filedocumented in this encounter Care Teams Plastics Fitter Relationship Specialty Start Date End Date Gaby Fleming MD [address] [place] [address] PCP - General 01/29/06 documented as of this encounter
--- OUTSIDE RECORDS SUMMARY | 2024-07-28 10:04 | XMS_ITS ---
Author Organization [facility] Care Team Providers Care Personal Secretary Name Role Phone Melissa Chacko Unavailable Unavailable Lucila Herring Unavailable Unavailable Andrey Romano Unavailable Unavailable Allergies and adverse reactions Code CodeSystem Substance Reaction Severity StartDate Concern Status 112774490 SNOMED CT Sulfa Antibiotics Mild 08/14/2022 active SULFA Unknown 08/14/2022 active 7454 RXNORM Nitrofurantoin Unknown 08/14/2022 active IVP Dye Unknown 08/14/2022 active 5973 RXNORM Ioxaglate Unknown 08/14/2022 active Hand Superintendent Drilling And Production Anaphylaxis (code- 03964308, SNOMED CT) Severe 08/14/2022 active Contrast Moderate 08/14/2022 active Care Team Name Role Address Phone Organization Dates Andrey Romano PCP [facility] [address] [place] [address], [address], [place], [address], [place] (Office): [facility] 08/14/2022 - 09/05/2022 Melissa Chacko Attending Physician [facility] 08/14/2022 - 09/05/2022 Lucila Herring Attending Physician [address], [place], [address], [place] (Office): : [facility] 08/14/2022 - 09/05/2022 Immunizations Immunization [...] completed tuberculin skin test; unspecified formulation lotNumber: [id number] expiry: 09/05/2024 Mfg: [employer] Given 0.1 ml Right Forearm intradermally Step 2 of Multi-step with next step required 98 CVX created date: 08/28/2022 consent date: 08/28/2022 administer ed date: 08/28/2022 Educated by Mary Dennis RN on 08/28/2022 TB 2 Step Mantoux Skin Test completed tuberculin skin test; unspecified formulation lotNumber: [id number] expiry: 09/05/2024 Mfg: [employer] Given [...] date: 08/14/2022 administer ed date: 02/07/2012 PCV13, [id number] completed Pneumococcal conjugate vaccine 20-valent (PCV20), polysaccharide [id number] conjugate, adjuvant, preservative free 216 CVX created [...] free, 30 mcg/0.3mL dose, holli-sucrose formulation Mfg: [employer] 217 CVX created date: 08/14/2022 administer ed date: 05/09/2020 COVID-19 Vaccine dose 3 completed unknown vaccine or immune globulin Mfg: [employer] 999 CVX created date: 08/14/2022 administer ed date: 01/01/2021 COVID-19 Vaccine dose 4 completed SARS-COV-2 (COVID-19) vaccine, mRNA, spike protein, LNP, preservative free, 30 mcg/0.3mL dose 208 CVX created date: 08/14/2022 administer ed date: 09/15/2021 COVID-19 Vaccine dose 5 completed SARS-COV-2 (COVID-19) vaccine, mRNA, spike protein, LNP, preservative free, 30 mcg/0.3mL dose Mfg: [employer] 208 CVX created date: 08/14/2022 administer ed [...] AGE-RELATED OSTEOPOROSIS WITHOUT CURRENT PATHOLOGICAL FRACTURE 08/14/[address] active 2 ANEMIA, UNSPECIFIED 08/14/[address] active 3 ANXIETY DISORDER, UNSPECIFIED 08/14/[address] active 4 BORDERLINE PERSONALITY DISORDER 08/14/2022200058611194 SNOMED CT active 5 CONVERSION DISORDER WITH MIXED SYMPTOM PRESENTATION 08/14/[address] active 6 DEPENDENCE ON OTHER ENABLING MACHINES AND DEVICES 08/14/[address] active 7 FRACTURE OF UNSPECIFIED PART OF NECK OF RIGHT FEMUR, SUBSEQUENT ENCOUNTER FOR CLOSED FRACTURE WITH ROUTINE HEALING 08/14/[address] active 8 GASTRO-ESOPHAGEAL REFLUX DISEASE WITHOUT ESOPHAGITIS 08/14/[address] active 9 IRRITABLE BOWEL SYNDROME, UNSPECIFIED 08/14/[address] active 10 RETIREMENT (CURRENT) USE OF ANTICOAGULANTS 08/14/[address] active 11 MAJOR DEPRESSIVE DISORDER, RECURRENT SEVERE WITHOUT PSYCHOTIC FEATURES 08/14/[address] active 12 NONINFECTIVE GASTROENTERITIS AND COLITIS, UNSPECIFIED 08/14/[address] active 13 OBESITY, UNSPECIFIED 08/14/[address] active 14 OBSTRUCTIVE SLEEP APNEA (ADULT) (PEDIATRIC) 08/14/[address] active 15 ORTHOSTATIC HYPOTENSION 08/14/[address] active 16 PERSONAL HISTORY OF OTHER MENTAL AND BEHAVIORAL DISORDERS 08/14/[address] active 17 POST-TRAUMATIC STRESS DISORDER, UNSPECIFIED 08/14/[address] active 18 UNSPECIFIED ASTHMA, UNCOMPLICATED 08/14/[address] active Reason for Referral No Reasons for Referral Entered Social History Social History Observation Description Start Date End Date Code Code System Current Smoking Status Tobacco smoking consumption unknown 743372126 SNOMED CT Sex Assigned At Female 1955 66895-2 [facility] Vital Signs Code Code System Vitals Name Values and Units Timing Information 31762-1 [facility] Pain Level Value=4.0 09/05/2022 40786-9 [facility] O2 % BldC Oximetry Value=96.0 Units= % 09/04/2022 8310-5 [facility] Body Temperature Value=97.7 Units= F 09/04/2022 9279-1 [facility] Respiratory Rate Value=18.0 Units=/m in 09/04/2022 8462-4 [facility] Blood Pressure-Diastolic Value=65 Un its=mmHg 09/04/2022 8480-6 [facility] Blood Pressure-Systolic Cxtcm=558 Un its=mmHg 09/04/2022 8867-4 [facility] Heart rate Kvmnn=917.0 Units=/min 09/04/2022 19011-5 [facility] Weight Imchu=075.0 Units=Lbs 07/2022 8302-2 [facility] Height Value=62.0 Units=Inches 08/14/2022
--- OUTSIDE RECORDS SUMMARY | 2024-07-28 10:04 | XMS_ITS | Encounter Summary ---
Author Organization [facility] Address [address] [place] [address] Care Team Providers Care Embedded Software Programmer Name Role Phone None Reported, Pcp Primary Care Provider Unavail able Reason for Referral * Outpatient (Routine) - Closed Specialty Diagnoses / Procedures Referred By Horacio marino Referred To Contact Neurology Diagnoses Demyelinating Disease Central Nervous System (HCC) Gagan Vera M.D. Phone: tel: fax: [facility] Referral ID Status Reason Start Date Expiration Date Visits Re quested Visits Authorized [id number] Closed 07/30/2018 07/30/2019 1 1 Encounter Details Date Type Department Care Team (Latest Contact Info) Description 07/30/2018 [facility] [address] [place] [address] Gagan Vera M.D. [address] [place] [address] Demyelinating Disease Central Nervous System (HCC) (Primary Dx) Social History Tobacco Use Types Packs/Day Years Used Date Smoking Tobacco: Never Assessed Comments Unknown Sex and Gender Information Value Date Recorded Sex Assigned at Female 01/02/2021 11:08 AM CDT Legal Sex Female 10:48 AM CDT Gender Identity Female 03/11/2019 12:39 PM COMMISSION ASSOCIATE Sexual Orientation Straight 03/11/2019 12 :39 PM COMMISSION ASSOCIATE documented as of this encounter Plan of [...] Pending 04/12/2021 04/12/2021 04/13/2021 6 :18 PM COMMISSION ASSOCIATE documented as of this encounter Care Teams Embedded Software Programmer Relationship Specialty Start Date End Date None Reported, Pcp PCP - General Family Medicine 01/26/24 documented as of this encounter
--- OUTSIDE RECORDS SUMMARY | 2024-07-28 10:04 | XMS_ITS | Encounter Summary ---
Author Organization [facility] Address [address] [place] [address] Care Team Providers Care Product Specialist Name Role Phone Gaby Fleming MD Primary Care Provider [phone] Encounter Details Date Type Department Care Team (Late st Contact Info) Description 05/19/2014 Scanned History [facility] Psychiatry [address] [place] [address] Jaycob Ayala MD [facility]-DISCHARGE PAPERWORK Social History [...] on filedocumented in this encounter Care Teams Product Specialist Relationship Specialty Start Date End Date Gaby Fleming MD [address] [place] [address] PCP - General 01/29/06 documented as of this encounter
--- OUTSIDE RECORDS SUMMARY | 2024-07-28 10:04 | XMS_ITS | Encounter Summary ---
Author Organization [facility] Address [address] [place] [address] Care Team Providers Care Hospital Security Officer Name Role Phone Gaby Fleming MD Primary Care Provider [phone] Encounter Details Date Type Department Care Team (Late st Contact Info) Description 03/11/2014 Correspondence None No Primary/Referring, Phy EQUIPMENT ELEVATED WORK PLATFORM OPERATOR TICKET Social History Tobacco Use Types [...] on filedocumented in this encounter Care Teams Hospital Security Officer Relationship Specialty Start Date End Date Gaby Fleming MD [address] [place] [address] PCP - General 01/29/06 documented as of this encounter
--- OUTSIDE RECORDS SUMMARY | 2024-07-28 10:04 | XMS_ITS | Encounter Summary ---
Author Organization [facility] Address [address] [place] [address] Care Team Providers Care Nurse Consultant Name Role Phone Gaby Fleming MD Primary Care Provider [phone] Encounter Details Date Type Department Care Team (Late st Contact Info) Description 05/13/2014 Emergency Room External to [facility], Provider EAR PAIN Social History Tobacco [...] on filedocumented in this encounter Care Teams Nurse Consultant Relationship Specialty Start Date End Date Gaby Fleming MD [address] [place] [address] PCP - General 01/29/06 documented as of this encounter
--- OUTSIDE RECORDS SUMMARY | 2024-07-28 10:04 | XMS_ITS | CCD ---
Author Organization Unknown Care Team Providers Care Work Distributor Name Role Phone Event [place], [place] Primary Care Provider Unava ilable Unavailable Chronic Care Management Unavaila ble Summary Purpose DataExchange Insurance Providers Payer name Policy type / Coverage type Covered republican ID Effective Begin Date Effective End Date [facility] Commercial Insurance [id number] Unknown Unkn own Family History Family History data not found Medication Administered No Medication Administered data Reason For Visit No Reason For Visit data
--- OUTSIDE RECORDS SUMMARY | 2024-07-28 10:04 | XMS_ITS | Encounter Summary ---
Author Organization [facility] Address [address] [place] [address] Care Team Providers Care Tongue And Groove Machine Operator Name Role Phone Gaby Fleming MD Primary Care Provider [phone] Encounter Details Date Type Department Care Team (Latest Contact Info) Description 10/17/1996 Orders Only Rosetta Gramajo MD [address] [place] [address] Social History Tobacco Use Types Packs/Day Years [...] on filedocumented in this encounter Care Teams Tongue And Groove Machine Operator Relationship Specialty Start Date End Date Gaby Fleming MD [address] [place] [address] PCP - General 01/29/06 documented as of this encounter
--- OUTSIDE RECORDS SUMMARY | 2024-07-28 10:04 | XMS_ITS | Encounter Summary ---
Author Organization [facility] Address [address] [place] [address] Care Team Providers Care Substation Operator Apprentice Name Role Phone Gaby Fleming MD Primary Care Provider [phone] Encounter Details Date Type Department Care Team (Latest Contact Info) Description 06/09/2014 Consent for Procedure/Treatme [facility] [address] [place] [address] METHACHOLINE CHALLENGE TEST Social History Tobacco Use [...] on filedocumented in this encounter Care Teams Substation Operator Apprentice Relationship Specialty Start Date End Date Gaby Fleming MD [address] [place] [address] PCP - General 01/29/06 documented as of this encounter
--- OUTSIDE RECORDS SUMMARY | 2024-07-28 10:04 | XMS_ITS | Encounter Summary ---
Author Organization [facility] Address [address] [place] [address] Care Team Providers Care Software Quality Specialist Name Role Phone Gaby Fleming MD Primary Care Provider [phone] Encounter Details Date Type Department Care Team (Latest Contact Info) Description 06/23/1997 Orders Only Terese Panda MD [facility][note 3] [place] [address] Social History Tobacco Use Types Packs/Day Years [...] on filedocumented in this encounter Care Teams Software Quality Specialist Relationship Specialty Start Date End Date Gaby Fleming MD [address] [place] [address] PCP - General 01/29/06 documented as of this encounter
--- OUTSIDE RECORDS SUMMARY | 2024-07-28 10:04 | XMS_ITS | Encounter Summary ---
Author Organization [facility] Address [address] [place] [address] Care Team Providers Care Payment Specialist Name Role Phone Gaby Fleming MD Primary Care Provider [phone] Encounter Details Date Type Department Care Team (Latest Contact Info) Description 06/30/1997 Orders Only Arielle Caraballo, DO [address] [place] [address] Social History Tobacco Use Types Packs/Day Years [...] on filedocumented in this encounter Care Teams Payment Specialist Relationship Specialty Start Date End Date Gaby Fleming MD [address] [place] [address] PCP - General 01/29/06 documented as of this encounter
--- OUTSIDE RECORDS SUMMARY | 2024-07-28 10:04 | XMS_ITS | Encounter Summary ---
Author Organization [facility] Address [address] [place] [address] Care Team Providers Care Media Buyer Name Role Phone Gaby Fleming MD Primary Care Provider [phone] Encounter Details Date Type Department Care Team [...] on filedocumented in this encounter Care Teams Media Buyer Relationship Specialty Start Date End Date Gaby Fleming MD [address] [place] [address] PCP - General 01/29/06 documented as of this encounter
--- OUTSIDE RECORDS SUMMARY | 2024-07-28 10:04 | XMS_ITS | Encounter Summary ---
[facility] Address [address] [address] Care Team Providers Care Tractor Distributor Name Role Phone Gaby Fleming MD Primary Care Provider [phone] Encounter Details Date Type Department Care Team [...] on filedocumented in this encounter Care Teams Tractor Distributor Relationship Specialty Start Date End Date Gaby Fleming MD [address] [place] [address] PCP - General 01/29/06 documented as of this encounter
--- OUTSIDE RECORDS SUMMARY | 2024-07-28 10:04 | XMS_ITS | Encounter Summary ---
Author Organization [facility] Address [address] [address] Care Team Providers Care Manager Scientific Name Role Phone Gaby Fleming MD Primary Care Provider [phone] Encounter Details Date Type Department Care Team (Late st Contact Info) Description 02/22/2014 Scanned History External to External, [place] [address] [facility] Social History [...] on filedocumented in this encounter Care Teams Manager Scientific Relationship Specialty Start Date End Date Gaby Fleming MD [address] [place] [address] PCP - General 01/29/06 documented as of this encounter
--- OUTSIDE RECORDS SUMMARY | 2024-07-28 10:04 | XMS_ITS | Encounter Summary ---
Author Organization [facility] Address [address] [place] [address] Care Team Providers Care Derrick Boat Leverman Name Role Phone Gaby Fleming MD Primary Care Provider [phone] Encounter Details Date Type Department Care Team (Late st Contact Info) Description 08/09/2011 Consent for Procedure/Treatme [facility] Department INFORMED CONSENT RECORD Social History [...] as of this encounter Progress Notes * [facility], PROVIDER - 08/09/2011 12:00 AM CDT documented in this encounter Plan of Treatment Not on file documented as of this encounter Visit Diagnoses Not on filedocumented in this encounter Care Teams Derrick Boat Leverman Relationship Specialty Start Date End Date Gaby Fleming MD [address] [place] [address] PCP - General 01/29/06 documented as of this encounter
--- OUTSIDE RECORDS SUMMARY | 2024-07-28 10:05 | XMS_ITS | Clinical Summary ---
Author Organization [facility] Address [address] [place] [address]. [place] [address] Care Team Providers Care Mold Finisher Name Role Phone No Ref-Primary, Physician Primary [...] on file Legal Sex Female 3:05 AM ADMINISTRATIVE ASSISTANT RECEPTIONIST Gender Identity Not on file Sexual Orientation Not on file Last Filed Vital Signs Vital Sign Reading Time Taken Comments Blood Pressure 136/55 06/16/2017 12:08 PM CDT Pulse 85 03/16/2016 8:18 PM ADMINISTRATIVE ASSISTANT RECEPTIONIST Temperature 36.7 C (98 F) 06/16/2017 12:08 [...] Advance Directives For more information, please contact: [phone] * Full Code (Latest Code Status on File) Date Activated Date Inactivated Comments 06/29/2014 3:33 PM 06/30/2014 12:26 PM * Full Code Date Activated Date Inactivated Comments 10/17/2013 3:44 PM 06/29/2014 3:33 PM * Full Code Date Activated Date Inactivated Comments 10/16/2013 2:27 PM 10/17/2013 3:44 PM Care Teams Mold Finisher Relationship Specialty Start Date End Date No Ref-Primary, Physician PCP - General 06/16/17
--- OUTSIDE RECORDS SUMMARY | 2024-07-28 10:05 | XMS_ITS | Encounter Summary ---
Author Organization [facility] Address [address] [place] [address] Care Team Providers Care Inside Wirer Name Role Phone Gaby Fleming MD Primary Care Provider [phone] Encounter Details Date Type Department Care Team [...] on filedocumented in this encounter Care Teams Inside Wirer Relationship Specialty Start Date End Date Gaby Fleming MD [address] [place] [address] PCP - General 01/29/06 documented as of this encounter
--- OUTSIDE RECORDS SUMMARY | 2024-07-28 10:05 | XMS_ITS | Encounter Summary ---
Author Organization [facility] Address [address] [address] Care Team Providers Care Dramatic Arts Historian Name Role Phone Gaby Fleming MD Primary Care Provider [phone] Encounter Details Date Type Department Care Team (Late st Contact Info) Description 12/14/2015 Correspondence External to External, [place] [address] 2015 HEALTH PROVIDER SCREENING FORM Social History [...] on filedocumented in this encounter Care Teams Dramatic Arts Historian Relationship Specialty Start Date End Date Gaby Fleming MD [address] [place] [address] PCP - General 01/29/06 documented as of this encounter
--- OUTSIDE RECORDS SUMMARY | 2024-07-28 10:05 | XMS_ITS | Encounter Summary ---
Author Organization [facility] Address [address] [place] [address] Care Team Providers Care Animal Daycare Provider Name Role Phone Gaby Fleming MD Primary Care Provider [phone] Encounter Details Date Type Department Care Team (Late st Contact Info) Description 07/12/2014 Correspondence [facility] [address] [place] [address]. [place], [place] [id number] Carlos Barrow MD [address] [place], [place] [id number] UROGYNECOLOGY QUESTIONNAIRE Social History Tobacco Use Types [...] filedocumented in this encounter Care Teams Animal Daycare Provider Relationship Specialty Start Date End Date Gaby Fleming MD [address] [place] [address] PCP - General 01/29/06 documented as of this encounter
--- OUTSIDE RECORDS SUMMARY | 2024-07-28 10:05 | XMS_ITS | Encounter Summary ---
Author Organization [facility] Address [address] [place] [address] Care Team Providers Care Healthcare Consulting Manager Name Role Phone Gaby Fleming MD Primary Care Provider [phone] Encounter Details Date Type Department Care Team [...] on filedocumented in this encounter Care Teams Healthcare Consulting Manager Relationship Specialty Start Date End Date Gaby Fleming MD [address] [place] [address] PCP - General 01/29/06 documented as of this encounter
--- OUTSIDE RECORDS SUMMARY | 2024-07-28 10:05 | XMS_ITS | Encounter Summary ---
Author Organization [facility] Address [address] [place] [address] Care Team Providers Care Piano Regulator Name Role Phone Gaby Fleming MD Primary Care Provider [phone] Encounter Details Date Type Department Care Team [...] on filedocumented in this encounter Care Teams Piano Regulator Relationship Specialty Start Date End Date Gaby Fleming MD [address] [place] [address] PCP - General 01/29/06 documented as of this encounter
--- OUTSIDE RECORDS SUMMARY | 2024-07-28 10:05 | XMS_ITS | Clinical Summary ---
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 Formerly known as conversion disorder. Tinnitus, bilateral [...] adrenal insufficiency; following with Dr. Ronna Tang ([facility]) Pap smear for cervical cancer screening 04/30/2022 [...] Type Department Care Team Description 07/21/2024 Telephone [facility] [address] [place] [address] Angi Estevez, DO Medication Management (calcium carbonate-vitamin D3 (600 mg-400 unit) 600 mg-10 mcg (400 unit) tablet/) 07/12/2024 8:00 AM CDT Ancillary Procedure [facility] [address] [place] [address] 07/12/2024 Travel 07/07/2024 11:00 AM CDT Office Visit [facility] [address] [place] [address] Angi Estevez Netta, DO ER Follow up (Dizziness/falls, UTI) 07/07/2024 Telephone [facility] [address] [place] [address] Sir Estevezi Netta, DO Reclast 07/07/2024 Travel 07/05/2024 Travel 06/30/2024 Telephone [facility] [address] [place] [address] Sir Estevezi Netta, DO Medication Management (omeprazole (PRILOSEC) 40 mg Delayed-Release capsule) 06/23/2024 Refill [facility] [address] [place] [address] Angi Estevez DO Refill Request (Metoprolol Succinate) 06/15/2024 Nurse Triage [facility] [address] [place] [address] Angi Estevez, Urinary Problem 05/28/2024 10:30 AM ROLL CONTOUR GRINDER Ancillary Procedure [facility] [address] [place] [address] 05/27/2024 Travel 05/20/2024 10:30 AM ROLL CONTOUR GRINDER Office Visit [facility] [address] [place] [address] Yony Gao MD Consult (Diarrhea 3-6 x daily, lower abdominal cramping x years, sometimes stays in bed due to abdominal pain, taking imodium & dicyclomine daily, severe heartburn x 4 months ) 05/19/2024 Travel from Last 3 Months Immunizations Immunization Administration Dates Next Due COVID-19 VACCINE SPIKEVAX (M ODERNA 50MCG/0.5ML) 12YO+ PFS 01/21/2023 COVID-19 vaccine (ParentingInformerBio NTech 30mcg/0.3mL) 12YO+ BIVALENT PF, MDV 01/18/2022 COVID-19 vaccine (Giftah-Bio NTech 30mcg/0.3mL) 12YO+ SANTI-SUCROSE PF, MDV 09/15/2021 COVID-19 vaccine (Giftah-CartRescuer NTech 30mcg/0.3mL) PF, MDV 09/15/2021,01/01/2021,05/09/2020,2020 DT (Age [...] PM CDT Legal Sex Female 7:01 AM ROLL CONTOUR GRINDER Gender Identity Female 11/19/2021 5:38 PM CDT [...] Info) Description 08/11/2024 2:00 PM CDT Telemedicine [facility] [address] [facility] [address] [place] [address] Rosa Mooney MD [address] [facility] [address] [place] [address] 08/25/2024 12:55 PM CDT Office Visit [facility] [address] [place] [address] Angi Estevez, DO [address] [place] [address] Health Maintenance Due Date Last Done Comments RSV vaccine for adults or (1 - Risk 60-74 years 1-dose series) 2017 Colonoscopy through age 75 01/08/202401/07 (Completed outside of [email or web address]) Mammogram for age 45-75 02/28/2024 02/28/20 23, 12/24/2021, 12/29/2020 (Completed outside of [email or web address]) Medicare Wellness for age 65+ 03/07/2024 03/07/2023 [...] Completed 02/27/2023 Medical Devices Implanted Type Area Accounting Analyst Device Identifier Shelf Expiration Date Model / Serial / Lot Mesh Hiatal 7x10cm Bio-A - [id number] Implanted:Qty: 1 on 01/22/2022 by Tamir Kimbrough ra, MD at [facility] N/A: Abdomen [employer] 09/17/2024 [id number] / / [id number] Procedures Procedure Name Priority Date/Time Associated Diagnosis [...] ABDOMEN PELVIS WO Routine 05/28/2024 10:13 AM ROLL CONTOUR GRINDER Chronic diarrhea RLQ abdominal pain LIPID PANEL W REFLEX MEASURED LDL Routine 03/07/2023 10:18 AM ROLL CONTOUR GRINDER Screening cholesterol level XR DXA BONE DENSITY 2 SITES AXIAL Routine 02/27/2023 11:35 AM ROLL CONTOUR GRINDER Postmenopausal XR MAMMO PATIENCE BILAT SCREEN Routine 02/27/2023 11:12 AM ROLL CONTOUR GRINDER Visit for screening mammogram ANTI HCV Routine [...] JOSE C Referring MD: ANGI ESTEVEZ Site: [facility] Reading Location: MOBILE-OP Patient [...] documentation: 1 ml diluted Definity, lot #[id number], [facility]# [id number] was administered peripherally to enhance visualization of all left ventricular segments. . This study was interpreted by an [facility] accredited facility. Final Procedure Note Richie Maldonado MD - 07/12/2024 ECHOCARDIOGRAM SOPHIE CASTRO : 1955 69 years Study Date: 07/12/2024 8:05:10 AM Gender: F BP: 124/58 mmHg Height: 157.00 cm BSA: 1.91 m Weight: 91.00 kg Tech: [facility] Referring MD: ANGI ESTEVEZ Site: [facility] Reading Location: MOBILE-OP Patient [...] documentation: 1 ml diluted Definity, lot #[id number], [facility]#[id number] was administered peripherally to enhance visualization of allleft ventricular segments. . This study was interpreted by an [facility] accredited facility. Final Angi Netta Herb VASQUEZ ECHO ORD Final Result * VITAMIN D 25 (DEFICIENCY) (07/07/2024 12:08 PM CDT) VITAMIN D,25-OH,TOTAL,IA 55 30 - 100 ng/mL [employer]michele Mendoza Comment: Vitamin D Status 25-OH Vitamin D: Deficiency: <20 ng/mL Insufficiency: 20 - 29 ng/mL Optimal: > or = 30 ng/mL For 25-OH Vitamin D testing on patients on D2-supplementation and patients for whom quantitation of D2 and D3 fractions is required, the QuestAssureD(TM) 25-OH VIT D, (D2,D3), LC/MS/MS is recommended: order code 10246 (patients >2yrs). See Note 1 Note 1 For additional information, please refer to http://education.Gridcentric/faq/TUK090 (This link is being provided for informational/ educational purposes only.) Blood BLOOD SPECIMEN / Unknown 07/07/2024 12:08 PM CDT 07/07/2024 12:08 PM CDT Angi Estevez DO SEND OUTS Final Result [facility] [address] [place] [address], [facility] [address] [place] [address] * (ABNORMAL) BASIC METABOLIC PANEL (07/07/2024 12:08 PM CDT) GLUCOSE 72 65 - 99 mg/dL [employer] omichele Mendoza Comment: Fasting reference interval UREA NITROGEN (BUN) 12 7 - 25 mg/dL [employer]od Reji CREATININE 0.80 0.50 - 1.05 mg/dL [...] CDT Angi Estevez DO CHEMISTRY Final Result [facility] [address] [place] [address], [facility] [address] [address] * CT ABDOMEN PELVIS WO (05/28/2024 10:13 AM ROLL CONTOUR GRINDER) Anatomical Region Laterality Modality Abdomen, Pelvis, AORTA, LIVER, SPLEEN Computed Tomography 05/28/2024 1:29 PM ROLL CONTOUR GRINDER Narrative 05/28/2024 1:29 PM ROLL CONTOUR GRINDER For Patients: As a result of the [...] W REFLEX MEASURED LDL (03/07/2023 10:18 AM ROLL CONTOUR GRINDER) CHOLESTEROL,TOTAL 203(H) 100 - 199 mg/dL 03/07/2023 4:59 PM ROLL CONTOUR GRINDER [facility] Comment: Cholesterol, Total Reference Ranges Desirable <200 mg/dL Borderline 200-239 mg/dL High >=240 mg/dL TRIGLYCERIDES 150(H) <150 mg/dL 03/07/2023 4:59 PM ROLL CONTOUR GRINDER [facility] HDL CHOLESTEROL 73 >40 mg/dL 3 4:59 PM ROLL CONTOUR GRINDER [facility] NON-HDL CHOLESTEROL 130 <145 mg/dl 03/07/2023 4:59 PM ROLL CONTOUR GRINDER [facility] CHOL/HDL RATIO 2.78 <4.50 03/07/2023 4:59 PM ROLL CONTOUR GRINDER [facility] LDL CHOLESTEROL 100 <=130 mg/dL 03/07/2023 4:59 PM ROLL CONTOUR GRINDER [facility] VLDL CHOLESTEROL 30 <=30 mg/dL 03/07/2023 4:59 PM ROLL CONTOUR GRINDER [facility] PROVIDER ORDERED STATUS RANDOM 03/07/2023 4:59 PM ROLL CONTOUR GRINDER [facility] Blood BLOOD SPECIMEN / Unknown Venipuncture / Unknown 03/07/2023 10:18 AM ROLL CONTOUR GRINDER 03/07/2023 10:25 AM ROLL CONTOUR GRINDER Angi Estevez DO CHEMISTRY Final Result [facility] [address] [place] [address], * (ABNORMAL) XR DXA BONE DENSITY 2 SITES AXIAL [39941.1] (02/27/2023 11:35 AM ROLL CONTOUR GRINDER) Anatomical Region Laterality Modality Spine, HIPS, HIPL, HIPR Other Impressions 03/10/2023 7:43 AM ROLL CONTOUR GRINDER Osteoporosis. RECOMMENDATIONS: The National Osteoporosis Foundation recommends [...] to assess therapeutic efficacy. Marisa Orozco PA-C [facility] 03/10/2023 Narrative 03/10/2023 7:43 AM ROLL CONTOUR GRINDER For Patients: Results are automatically released to your [facility] ([facility]) account once available, in compliance with federal regulations. This means that you may see your results before your provider has had a chance to review them. Please allow 2-3 business days for your provider to comment on the results. XR DXA Bone Mineral Density (BMD) EXAM LOCATION: [address] [address] PATIENT NAME: Sophie Castro DATE OF : [...] two scanners are made by the same forensic analyst. PROCEDURE: Dual-energy x-ray absorptiometry performed with routine [...] MAMMO PATIENCE BILAT SCREEN (02/27/2023 11:12 AM ROLL CONTOUR GRINDER) Anatomical Region Laterality Modality BREASTS, Breast Left, Breast Right Bilateral Mammography Impressions 02/27/2023 2:01 PM ROLL CONTOUR GRINDER There is no radiographic evidence for malignancy. Recommend annual mammograms. MAMMOGRAM ASSESSMENT: ACR 1 Negative PATIENTS: You will also receive a letter with your examination results in an easy to read format. If you have questions about your results, please contact your referring provider. Narrative 02/27/2023 2:01 PM ROLL CONTOUR GRINDER For Patients: As a result of the Cures Act, medical imaging exams and procedure reports are released immediately into your electronic medical record. You may view this report before your referring provider. If you have questions, please contact your health care provider. XR MAMMO PATIENCE BILAT SCREEN [[id number]] CLINICAL HISTORY: This is an asymptomatic 67 y.o. patient. INDICATION FOR EXAM: Mammogram Screening. TECHNIQUE: CC & MLO views were obtained. This study was evaluated with the assistance of Computer-Aided Detection. Breast Tomosynthesis was used in interpretation. COMPARISON FILM: Yes 12/24/21 [email or web address] FINDINGS: The breasts have scattered areas of fibroglandular density. There are no dominant masses, suspicious micro calcifications or areas of architectural distortion. us Angi Netta Shaqra DO MAMMO Final Result * ANTI HCV (10/18/2021 12:14 PM CDT) HEPATITIS C ANTIBODY Non-React fiona Non-React fiona 10/19/2021 3:38 AM CDT [facility] Comment:Antibodies to HCV no t detected; does not exclude the possibility of exposure to HCV. Blood BLOOD SPECIMEN / Unknown Venipuncture / Unknown 10/18/2021 12:14 PM CDT 10/18/2021 12:16 PM CDT us Betina BRANTLEY SEND OUTS Final Resu lt [facility] [address] [place] [address], [place] from Last 3 Months or Most Recently Relevant to Health Maintenance Insurance MEDICARE PART A HB ONLY [facility] Advance Directives Documents on File Type Date Recorded Patient Blue Leather Sorter Expl anation POLST 09/09/2022 POLST 03/13/2022 09/10/22 [...] 1:02 PM 03/17/2019 3:50 PM Care Teams Hemp Fiber Taker Off Relationship Specialty Start Date End Date [place] [address] PCP - General Family Practice 10/08/22 Gaby Fleming Family Practice 10/26/14 [facility] [address] [place] [address] 06/12/22 Holli Thomas DO [address] [facility] [address] [place] [address] Internal Medicine 09/13/22
--- OUTSIDE RECORDS SUMMARY | 2024-07-28 10:05 | XMS_ITS | Encounter Summary ---
Author Organization [facility] Address [address] [place] [address] Care Team Providers Care Correctional Counselor/Case Manager Name Role Phone Gaby Fleming MD Primary Care Provider [phone] Encounter Details Date Type Department Care Team (Late st Contact Info) Description 02/02/2016 Refill Order [facility] [address] [place] [address] [place] [address] [place] [address] Social History Tobacco Use Types Packs/Day [...] Results * Hemoglobin, Blood (02/12/2016 2:43 PM MANAGER FITNESS) Hemoglobin 12.7 12.0 - 16.0 g/dl [facility] 02/12/2016 2:43 PM MANAGER FITNESS 02/12/2016 2:45 PM MANAGER FITNESS Narrative [facility] - 02/12/2016 6:50 PM MANAGER FITNESS Performed at [facility], [address] [place] [address] us Gaby Fleming MD LAB_1 Final Resul t [facility] [phone] documented in this encounter Visit Diagnoses Diagnosis Encounter for long-term (current) use of medications- Primary Encounter for long-term (current) use of other medications Acute gout of left knee, unspecified cause- Primary Encounter for long-term (current) use of medications Encounter for long-term (current) use of other medications documented in this encounter Care Teams Correctional Counselor/Case Manager Relationship Specialty Start Date End Date Gaby Fleming MD [address] [place] [address] PCP - General 01/29/06 documented as of this encounter
--- OUTSIDE RECORDS SUMMARY | 2024-07-28 10:05 | XMS_ITS | Clinical Summary ---
Author Organization [facility] Address [address] [place] [address] Care Team Providers Care Cake Tester Name Role Phone None Reported, Pcp Primary Care Provider Unavail able Source Comments Patient records contain information from all sites at [facility]. For routine questions regarding patient records, call [phone] during business hours, M-F 8:00 AM - 5:00 PM Central Time. Record requests for emergency care only can be directed to [phone] at any time.[facility] Allergies Active Allergy Reactions Criticality Noted Date [...] bedtime. 05/20/19 21 Active miscellaneous medical supply [facility] CPAP machine for home use at pressure [...] Description 07/22/2024 Refill Division of Endocrinology in [place], [place] [address] [place] [address] Ronna Tang M.D. Med Refill from Last [...] drink = 0.6 oz pur e alcohol) [facility] Utilities Answer Date Recorded In the past 12 months has e [employer], gas, oil, or water [employer] threatened to shut off services in your [...] often do you attend chur ch or pentecostalism services? More than 4 times per year 12/23/2021 Do you belong to any clubs o r organizations such as taoist groups, unions, fraternal or athletic groups, or [...] Answer Date Recorded PHQ-2 Score 2 01/21/2024 [facility] - Occupational [...] your living situation today? I have a [facility] place to live 03/11/2024 Education Answer Date Recorded What is the highest level of school you have completed or the highest degree you have received? Master's degree (e.g., MA, MS, Tc, MEd, FRANCHISE DEVELOPMENT MANAGER, ALEKSEY) 09/07/2018 Comments Unknown Sex and Gender Information Value Date Recorded Sex Assigned at Female 01/02/2021 11:08 AM CDT Legal Sex Female 10:48 AM CDT Gender Identity Female 03/11/2019 12:39 PM FRAME WELDER [employer] Sexual Orientation Straight 03/11/2019 12 :39 PM FRAME WELDER [employer] Last Filed Vital Signs Vital Sign Reading Time Taken Comments Blood Pressure 118/58 03/16/2024 10:38 AM FRAME W[employer] Pulse 93 03/16/2024 10:38 AM FRAME WELDER [employer] Temperature 36.6 C (97.9 F) 01/08/2021 11:04 AM CDT Respiratory Rate - - Oxygen Saturation - - Inhaled Oxygen Concentration - - Weight 91.7 kg (202 lb 2.6 oz) 03/16/2024 10:38 AM FRAME W[employer] Height 160 cm (5' 2.99) 03/16/2024 10:38 AM FRAME WELDER [employer] Body Mass Index 35.82 03/16/2024 10:38 AM FRAME WELDER [employer] Plan of Treatment Health Maintenance Due Date [...] this topic Medical Devices Implanted Type Area Spd Tech Device Identifier Shelf Expiration Date Model / Serial / Lot Hardware E.G. Pins/Screws/Ld s-03/31/2022 Implanted:03/31 (Quantity not on file) Hardware e.g. pins/screws/ro ds Right: Hip Description:Pins and Screws - Implantable Loop Recorder-2018 Implanted:03/17 (Quantity not on file) Implantable Loop Recorder Left: Chest Medtronic [id number] / [id number] S / Insurance [facility] Care Teams Cake Tester Relationship Specialty Start Date End Date None Reported, Pcp PCP - General Family Medicine 01/26/24
--- OUTSIDE RECORDS SUMMARY | 2024-07-28 10:05 | XMS_ITS | Encounter Summary ---
Author Organization [facility] Address [address] [place] [address] Care Team Providers Care Dermatology Procedural Physician Name Role Phone None Reported, Pcp Primary Care Provider Unavail able Reason for Visit * Reason Comments Med Refill Encounter Details Date Type Department Care Team (Late st Contact Info) Description 07/22/2024 Refill Division of Endocrinology in [place], [place] [address] [place] [phone] Ronna Tang M.D. [address] [place] [address] Med Refill Social History Tobacco Use Types Packs/Day Years Used Date Smoking Tobacco: Never Passive Smoke Exposure: Never Smokeless Tobacco: Never Alcohol Use Standard Drinks/Week Comments Never 0 (1 standard drink = 0.6 oz pur e alcohol) [facility] Utilities Answer Date Recorded In the past 12 months has [facility] [employer], gas, oil, or water [employer] threatened to shut off services in your [...] often do you attend chur ch or scientologist services? More than 4 times per year 12/23/2021 Do you belong to any clubs o r organizations such as yazidism groups, unions, fraternal or athletic groups, or [...] Answer Date Recorded PHQ-2 Score 2 01/21/2024 [facility] - Occupational Stress Questionnaire Answer [...] your living situation today? I have a [facility] place to live 03/11/2024 Education Answer Date Recorded What is the highest level of school you have completed or the highest degree you have received? Master's degree (e.g., MA, MS, Tc, MEd, SENIOR SQL SERVER DBA, ALEKSEY) 09/07/2018 Comments Unknown Sex and Gender Information Value Date Recorded Sex Assigned at Female 01/02/2021 11:08 AM CDT Legal Sex Female 10:48 AM CDT Gender Identity Female 03/11/2019 12:39 PM TOPSTITCHER LOCKSTITCH Sexual Orientation Straight 03/11/2019 12 :39 PM TOPSTITCHER LOCKSTITCH documented as of this encounter Plan of Treatment Not on file documented as of this encounter Visit Diagnoses Not on filedocumented in this encounter Additional Health Concerns Assessment Noted Time PHQ-9 Depression Total Score: 5 01/12/20 20 1:04 PM CDT documented as of this encounter Care Teams Dermatology Procedural Physician Relationship Specialty Start Date End Date None Reported, Pcp PCP - General Family Medicine 01/26/24 documented as of this encounter
--- OUTSIDE RECORDS SUMMARY | 2024-07-28 10:05 | XMS_ITS | Encounter Summary ---
Author Organization [facility] Address [address] [place] [address] Care Team Providers Care Receiving Tank Operator Name Role Phone Gaby Fleming MD Primary Care Provider [phone] Encounter Details Date Type Department Care Team [...] on filedocumented in this encounter Care Teams Receiving Tank Operator Relationship Specialty Start Date End Date Gaby Fleming MD [address] [place] [address] PCP - General 01/29/06 documented as of this encounter
--- OUTSIDE RECORDS SUMMARY | 2024-07-28 10:05 | XMS_ITS | Encounter Summary ---
Author Organization [facility] Address [address] [place] [address] Care Team Providers Care Pipeman Name Role Phone Gaby Fleming MD Primary Care Provider [phone] Encounter Details Date Type Department Care Team (Late st Contact Info) Description 02/11/2013 Correspondence None No Primary/Referring, [facility] HEALTH PROVIDER SCREENING FORM Social History [...] this encounter Progress Notes * No Primary/Referring, [facility] - 02/11/2013 12:00 AM CST WASHER documented in this encounter Plan of Treatment Not on file documented as of this encounter Visit Diagnoses Not on filedocumented in this encounter Care Teams Pipeman Relationship Specialty Start Date End Date Gaby Fleming MD [address] [place] [address] PCP - General 01/29/06 documented as of this encounter
--- OUTSIDE RECORDS SUMMARY | 2024-07-28 10:05 | XMS_ITS | Encounter Summary ---
Author Organization [facility] Address [address] [place] [address] Care Team Providers Care Pt Escort Name Role Phone Gaby Fleming MD Primary Care Provider [phone] Encounter Details Date Type Department Care Team [...] on filedocumented in this encounter Care Teams Pt Escort Relationship Specialty Start Date End Date Gaby Fleming MD [address] [place] [address] PCP - General 01/29/06 documented as of this encounter
--- OUTSIDE RECORDS SUMMARY | 2024-07-28 10:05 | XMS_ITS | Encounter Summary ---
Author Organization [facility] Address [address] [place] [address] Care Team Providers Care Superintendent Refuse Disposal Name Role Phone Gaby Fleming MD Primary Care Provider [phone] Encounter Details Date Type Department Care Team [...] on filedocumented in this encounter Care Teams Superintendent Refuse Disposal Relationship Specialty Start Date End Date Gaby Fleming MD [address] [place] [address] PCP - General 01/29/06 documented as of this encounter
--- OUTSIDE RECORDS SUMMARY | 2024-07-28 10:05 | XMS_ITS | Encounter Summary ---
Author Organization [facility] Address [address] [place] [address] Care Team Providers Care Curb Worker Name Role Phone Gaby Fleming MD Primary Care Provider [phone] Encounter Details Date Type Department Care Team (Late st Contact Info) Description 09/27/2016 Correspondence [facility] 401 [facility]. [place], [place] [phone] Jason Barrett MD [address] [place], [place] [id number] [facility] Social History Tobacco [...] on filedocumented in this encounter Care Teams Curb Worker Relationship Specialty Start Date End Date Gaby Fleming MD [address] [place] [address] PCP - General 01/29/06 documented as of this encounter
--- OUTSIDE RECORDS SUMMARY | 2024-07-28 10:05 | XMS_ITS | Clinical Summary ---
Author Organization [facility] Address [address] [place] [address] Care Team Providers Care Cover Cutter Name Role Phone Kta Fleming MD Primary Care Provider Source Comments You are receiving this document as you are listed as the primary care provider,follow-up provider, or the patient has been referred to you for consultation.This is in compliance with the Medicare and[facility] EHR Incentive Program,which states Providers who transition their patient to another setting of careor provider of care or refers their patient to another provider of care shouldprovide summary care record for each transition of care or referral. [employer] Allergies Active Allergy Reactions Criticality Noted Date Comments Iodinated Contrast Media Anaphylaxis High 05/26/2014 Pt given Epi Pen and sent to ER post injection CT Contrast with pre medication given to patient prior to Contrast injection. Nitrofurantoin Other Anaphylaxis High 06/29/2014 Hand community service technician used by someone else in her [...] Complex case opened 05/23/14, assigned to Radha Catnu RN, [facility] [place] Advocate @ [phone] Interactive with Asthma Disease Management Program, opt [...] deconditioning 07/26/2014 Vocal cord dysfunction 07/25/2014 CAREPLAN: [facility] CASE MANAGEMENT 2014 Overview (08/14/2016): Background: 11/04/14 Continue case open to Behavioral Health Case Manuel/Kim Spani @ [phone] Engaged in Complex Case Management: Santa Garcia RN [phone] Goals/Recommendations: CM will encourage patient to f/t [...] dated 09/08/2015. Also terminated by Deborah Campos [facility] (psychotherapy). Jaycob Ayala MD 09/08/2015, 3:15 PM Adjustment disorder with mix ed anxiety and depressed mood 08/04/2015 12/06/2015 Sensory integration disorder 07/26/2015 12/06/2015 Impaired mobility and ADLs 07/26/2015 0 12/06/2015 Severe episode of recurrent major depressive disorder, without psychotic features 06/09/201509/2015 Panic disorder without agoraphobia 04/20/2015 12/06/2015 [facility] Case Management 10/07/19 15 01/11/2016 Overview (10/06/2014): Background: Diagnosis: Major Depressive Disorder, Generalized Anxiety Disorder, PTSD, Panic Disorder and Dissociative Identity Disorder. Current situation: The member was recently hospitalized on a psych unit at [facility] from 10/02/14-10/06/14. She was discharged with psychotherapy and psychiatry appointments. Providers outside of [facility]: The member sees two therapists at [facility]. Filipe Mcwilliams and Faith Vazquez. They can be reached at [phone]. Goals/Recommendations: Outpatient Behavioral Health Bacteriologist FisheryInjection Molder Information: Kim Sosa MA, [facility] [phone] Action Plan: The member was provided with [...] Disorder Panic disorder without agoraphobia 12/30/2013 02/03/2015 [facility] Case Management 12/24/19 14 02/21/2014 Overview (12/23/2013): Background: Enrolled in [facility] [place] Process Control Engineer Program - coaching for Anxiety & Depression. Diagnosis: Dysthymia; Panic Disorder Current situation: Reports experiencing symptoms of depression and anxiety due to family stressors and significant challenges with maintaining a work/family balance. Patient has been participating in intensive mental health treatment since the middle of October. Patient s all 5 children live at home with her along with her elderly [id number]. Patient reports that she has experienced symptoms of depression for many years however, the anxiety is new for her and that she has challenges with her overall self-care. Providers outside of [facility]: Currently attending IOP at [facility] Goals/Recommendations: Outpatient Depression/Anxiety Threading Machine Operator Contact Information: Garry Roman MS, [facility] [phone] Action Plan: To continue to work on improving overall self-care by developing a sleep schedule, engaging in physical activity, eating a balance diet, relaxation and participating in enjoyable activities. Threading Machine Operator to provide health education information on overall self-care, stress relief, relaxation, anxiety, healthy eating as well as community support for anxiety/panic. Diverticulitis 10/16/2013 12/06/2015 Head revolving around 10/16/20132014 Nontoxic uninodular goiter 03/27/2004 1 04/05/2014 Immunizations Immunization Administration Dates Next Due DTaP 09/28/2014 Flu Vac (3+ yrs) 01/10/2012, 1,12/29/2008,2006,01/15/2006,01/11/2005,03/01/2004,1 04/04/2002,02/04/2002,02/04/2001, 000,01/18/1999 HepA-HepB ([place], 18+ yrs) 01/17/2016,06/02/19 03,12/25/2001 Influenza IIV4 (Quadrivalent ) 0.5mL (29109) 12/06/2015,12/22/2014,12/07/2013,2012 Influenza Vaccine (3+years) ([facility]) 01/09/2010,01/12/2008 Influenza, Unspecified Formulation 01/10/1998, [...] this topic Medical Devices Implanted Type Area Database Development Project Manager Device Identifier Shelf Expiration Date Model / Serial / Lot Sling Advantage Mid-Urethral - [id number] Implanted:Qty: 1 on 02/21/2015 by Carlos Barrow MD at [facility] DEVICE N/A: VAGINA [place] Scien chiller tender 10/26/2017 [id number] / / [id number] Procedures Procedure Name Priority Date/Time Associated Diagnosis Comments LIPID PANEL & DIRECT LDL (IF NEEDED) Routine 03/19/2016 11:16 AM PORCELAIN ENAMEL INSTALLER Pre-diabetes HEPATITIS C ANTIBODY, WITH REFLEX Routine 12/06/2015 9:36 AM CDT Preventative health care PAP TEST, ROUTINE Routine 09/06/2014 8:2 8 AM CDT Screening for cervical cancer MM MAMMOGRAM SCREENING BILAT W CAD Routine 04/11/2014 2:06 PM PORCELAIN ENAMEL INSTALLER COLONOSCOPY Routine 08/09/2011 8:56 AM CDT Abn findings-GI tract from Last 3 Months or Most Recently Relevant to Health Maintenance Results * (ABNORMAL) Lipid Panel and Direct LDL(If Needed) (03/19/2016 11:16 AM PORCELAIN ENAMEL INSTALLER) Hours Fasting 2 hours [facility] Cholesterol 179 0 - 199 mg/dl [facility] Triglyceride 161(H) 0 - 149 mg/dl [facility] HDL 40(L) >40 mg/dl [facility] LDL, Calc. 107 0 - 129 mg/dl [facility] Non HDL Chol, Calc 139 mg/dl [facility] 03/19/2016 11:1 6 AM PORCELAIN ENAMEL INSTALLER 03/19/2016 11:17 AM PORCELAIN ENAMEL INSTALLER Narrative [facility] - 03/19/2016 6:49 PM PORCELAIN ENAMEL INSTALLER Performed at [facility], [address] [place] [address] us Kat Fleming MD LAB_1 Final Resul t Performing Organization Address [facility] de Phone Number [facility] [phone] * Hepatitis C Antibody, with Reflex (12/06/2015 9:36 AM CDT) Anti-HCV Negative (Non Reactive) [facility] Comment: Antibodies to HCV not detected. Does not exclude the possibility of exposure to HCV. 12/06/2015 9:36 AM CDT 12/06/2015 9:37 AM CDT Narrative [facility] - 12/06/2015 8:01 PM CDT Performed at [facility], [address] [place], [place] [address] us Kat Fleming MD LAB_1 Final Resul t Performing Organization Address [facility] de Phone Number [facility] [phone] * PAP TEST, ROUTINE (09/06/2014 8:28 AM CDT) Cytology, Pap (NOTE) Borematic Operator Cytology Report Patient Name: SOPHIE CASTRO Taken: 09/06/2014 Received: 09/06/2014 Reported: 09/12/2014 Physician(s): KAT FLEMING ([id number]) Source of Specimen Pap Test, Routine Cervical/Endocervi zane: Specimen Adequacy Satisfactory for evaluation. Endocervical component present. Final Cytologic Interpretation/Res ult NEGATIVE FOR INTRAEPITHELIAL LESION OR MALIGNANCY (NILM) Other Cytologic Findings Atrophy Electronically Signed Out By ABDELRAHMAN Andrew (ASCP) ABDELRAHMAN Andrew (ASCP) Pap Smear History Date of Last Menstrual Period: Menopausal Microscopic Description Microscopic examination is performed. [facility] Department of Pathology [address] [place] [id number] [facility] 09/06/2014 8:28 AM CDT 09/06/2014 5:03 PM CDT Result [facility] Kat Fleming MD LAB_1 Final Resul t [facility] [phone] * MAMMOGRAM SCREENING BILATERAL (04/11/2014 2:06 PM PORCELAIN ENAMEL INSTALLER) Anatomical Region Laterality Modality Breast Bilateral Mammography Narrative 04/12/2014 2:34 PM PORCELAIN ENAMEL INSTALLER BILATERAL FULL FIELD DIGITAL SCREENING MAMMOGRAM Performed [...] RAD ZENA Final Resul t * COLONOSCOPY [[id number]] (08/09/2011 8:56 AM CDT) 08/09/2011 8:56 AM [...] previously scheduled. CPT(R) Code(s): --- Professional --- 03679, Colonoscopy, flexible, proximal to splenic flexure; diagnostic, with or without collection of specimen(s) by brushing or washing, with or without colon decompression (separate procedure) ICD9 Code(s): --- Professional --- 793.4, Nonspecific (abnormal) findings on radiological and other examination of gastrointestinal tract 562.10, Diverticulosis of colon (without mention of hemorrhage) CPT (R) 2011 [employer]. All Rights Reserved. The codes documented in this report are preliminary and upon screw machine adjuster automatic review may be revised to meet current [...] previously scheduled. CPT(R) Code(s): --- Professional --- 26003, Colonoscopy, flexible, proximal to splenic flexure; diagnostic, with or without collection of specimen(s) by brushing or washing, with or without colon decompression (separate procedure) ICD9 Code(s): --- Professional --- 793.4, Nonspecific (abnormal) findings on radiological and other examination of gastrointestinal tract 562.10, Diverticulosis of colon (without mention of hemorrhage) CPT (R) 2011 [employer]. All Rights Reserved. The codes documented in this report are preliminary and upon screw machine adjuster automatic review may be revised to meet current compliance requirements. Attending Participation: Ari Amanda MD 08/09/2011 9:21 AM Number of Addenda: 0 Note Initiated On: 08/09/2011 8:56 AM Ari Amanda MD DIGESTIVE CARE Final Result GI (PROVATION) [place], [place] from Last 3 Months or Most Recently Relevant to Health Maintenance Insurance [facility] MEDICARE Advance Directives * Full Code (Latest Code Status on File) Date Activated Date Inactivated Comments 10/24/2014 4:56 AM 10/26/2014 2:53 PM * Full Code Date Activated Date Inactivated Comments 10/03/2014 12:15 PM 10/06/2014 1:15 PM * Full Code Date Activated Date Inactivated Comments 04/22/2014 8:28 PM 04/28/2014 4:20 PM Care Teams Cover Cutter Relationship Specialty Start Date End Date Kat Fleming MD [address] [place] [address] PCP - General 01/29/06
--- OUTSIDE RECORDS SUMMARY | 2024-07-28 10:05 | XMS_ITS | Encounter Summary ---
Author Organization [facility] Address [address] [place] [address] Care Team Providers Care Associate Professor Of Medicine Name Role Phone Gaby Flemnig MD Primary Care Provider [phone] Encounter Details Date Type Department Care Team (Late st Contact Info) Description 07/29/2014 Correspondence None No Primary/Referring, Phy EQUIPMENT INPATIENT CODER TICKET Social History Tobacco Use Types Packs/Day [...] on filedocumented in this encounter Care Teams Associate Professor Of Medicine Relationship Specialty Start Date End Date Gaby Fleming MD [address] [place] [address] PCP - General 01/29/06 documented as of this encounter
--- OUTSIDE RECORDS SUMMARY | 2024-07-28 10:05 | XMS_ITS | Encounter Summary ---
Author Organization [facility] Address [address] [place] [address] Care Team Providers Care Vp Marketing Services And Skin Name Role Phone Gaby Fleming MD Primary Care Provider [phone] Encounter Details Date Type Department Care Team (Late st Contact Info) Description 03/27/2015 Correspondence None No Primary/Referring, Phy E EQUIPMENT BROKE BEATER MACHINE OPERATOR TICKET Social History Tobacco Use Types [...] on filedocumented in this encounter Care Teams Vp Marketing Services And Skin Relationship Specialty Start Date End Date Gaby Fleming MD [address] [place] [address] PCP - General 01/29/06 documented as of this encounter
--- OUTSIDE RECORDS SUMMARY | 2024-07-28 10:05 | XMS_ITS | Encounter Summary ---
Author Organization [facility] Address [address] [place] [address] Care Team Providers Care Utilization Reviewer Name Role Phone Gaby Fleming MD Primary Care Provider [phone] Encounter Details Date Type Department Care Team (Latest Contact Info) Description 07/14/2014 Consent for Procedure/Treatme nt Specialty [facility] [address] [facility] [address] [place] [address] INFORMED CONSENT URODYNAMIC TESTING Social History Tobacco [...] on filedocumented in this encounter Care Teams Utilization Reviewer Relationship Specialty Start Date End Date Gaby Fleming MD [address] [place] [address] PCP - General 01/29/06 documented as of this encounter
--- OUTSIDE RECORDS SUMMARY | 2024-07-28 10:05 | XMS_ITS | Encounter Summary ---
Author Organization [facility] Address [address] [address] Care Team Providers Care Scale Technician Name Role Phone Gaby Fleming MD Primary Care Provider [phone] Encounter Details Date Type Department Care Team [...] on filedocumented in this encounter Care Teams Scale Technician Relationship Specialty Start Date End Date Gaby Fleming MD [address] [place] [address] PCP - General 01/29/06 documented as of this encounter
--- OUTSIDE RECORDS SUMMARY | 2024-07-28 10:05 | XMS_ITS | CCD ---
Author Organization Unknown Care Team Providers Care Monorail Helper Name Role Phone [employer] [place], [place] Primary Care Provider Unava ilable Unavailable Chronic Care Management Unavaila ble Summary Purpose DataExchange Insurance Providers Payer name Policy type / Coverage type Covered constitution party ID Effective Begin Date Effective End Date [facility] Commercial Insurance [id number] Unknown Unkn own Family History Family History data not found Medication Administered No Medication Administered data Reason For Visit No Reason For Visit data
--- OUTSIDE RECORDS SUMMARY | 2024-07-28 10:05 | XMS_ITS | Encounter Summary ---
Author Organization [facility] Address [address] [place] [address] Care Team Providers Care Baseball Club Manager Name Role Phone Gaby Fleming MD Primary Care Provider [phone] Encounter Details Date Type Department Care Team (Late st Contact Info) Description 01/10/2015 Correspondence [facility] Psychiatry [address] [place] [id number] Jaycob Ayala MD LETTER Social History Tobacco [...] on filedocumented in this encounter Care Teams Baseball Club Manager Relationship Specialty Start Date End Date Gaby Fleming MD [address] [place] [address] PCP - General 01/29/06 documented as of this encounter
--- OUTSIDE RECORDS SUMMARY | 2024-07-28 10:06 | XMS_ITS | Encounter Summary ---
Author [facility] Address [address] [place] [address] Care Team Providers Care Refinery Operator Polymerization Plant Name Role Phone Gaby Fleming MD Primary Care Provider [phone] Encounter Details Date Type Department Care Team (Late st Contact Info) Description 10/06/2014 Correspondence [facility] Radiology [address] [place] [id number] Radiology, Provider MRI SAFETY SHEET AND COMPATIBILITY [...] on filedocumented in this encounter Care Teams Refinery Operator Polymerization Plant Relationship Specialty Start Date End Date Gaby Fleming MD [address] [place] [address] PCP - General 01/29/06 documented as of this encounter
--- OUTSIDE RECORDS SUMMARY | 2024-07-28 10:06 | XMS_ITS | Encounter Summary ---
Author Organization [facility] Address [address] [address] Care Team Providers Care Tour Conductor Name Role Phone Gaby Fleming MD Primary Care Provider [phone] Encounter Details Date Type Department Care Team (Late st Contact Info) Description 07/17/2015 Correspondence None No Primary/Referring, Phy HME EQUIPMENT BOTTLE GAUGER TICKET Social History Tobacco Use Types Packs/Day [...] filedocumented in this encounter Care Teams Tour Conductor Relationship Specialty Start Date End Date Gaby Fleming MD [address] [place] [address] PCP - General 01/29/06 documented as of this encounter
--- OUTSIDE RECORDS SUMMARY | 2024-07-28 10:06 | XMS_ITS | Encounter Summary ---
Author Organization [facility] Address [address] [address] Care Team Providers Care Senior Cytogenetic Technologist Name Role Phone Gaby Fleming MD Primary Care Provider [phone] Encounter Details Date Type Department Care Team [...] on filedocumented in this encounter Care Teams Senior Cytogenetic Technologist Relationship Specialty Start Date End Date Gaby Fleming MD [address] [place] [address] PCP - General 01/29/06 documented as of this encounter
--- OUTSIDE RECORDS SUMMARY | 2024-07-28 10:06 | XMS_ITS | Encounter Summary ---
Author Organization [facility] Address [address] [address] Care Team Providers Care Bookkeeping Manager Name Role Phone Gaby Fleming MD Primary Care Provider [phone] Encounter Details Date Type Department Care Team [...] on filedocumented in this encounter Care Teams Bookkeeping Manager Relationship Specialty Start Date End Date Gaby Fleming MD [address] [place] [address] PCP - General 01/29/06 documented as of this encounter
--- OUTSIDE RECORDS SUMMARY | 2024-07-28 10:06 | XMS_ITS | Encounter Summary ---
Author Organization [facility] Address [address] [place] [address] Care Team Providers Care Surgical Clinical Reviewer Name Role Phone Gaby Fleming MD Primary Care Provider [phone] Encounter Details Date Type Department Care Team (Late st Contact Info) Description 04/06/2015 Correspondence None No Primary/Referring, Phy HME EQUIPMENT ADVISORY INTERN TICKET Social History Tobacco Use Types Packs/Day [...] on filedocumented in this encounter Care Teams Surgical Clinical Reviewer Relationship Specialty Start Date End Date Gaby Fleming MD [address] [place] [address] PCP - General 01/29/06 documented as of this encounter
--- OUTSIDE RECORDS SUMMARY | 2024-07-28 10:06 | XMS_ITS | Encounter Summary ---
Author Organization [facility] Address [address] [place] [address] Care Team Providers Care Repair Service Clerk Name Role Phone Gaby Fleming MD Primary Care Provider [phone] Encounter Details Date Type Department Care Team (Latest Contact Info) Description 11/22/2013 Correspondence [facility] Partial Hospitalization Program [address] [place] [address] [facility] SAFETY PLAN Social History Tobacco Use [...] on filedocumented in this encounter Care Teams Repair Service Clerk Relationship Specialty Start Date End Date Gaby Fleming MD [address] [place] [address] PCP - General 01/29/06 documented as of this encounter
--- OUTSIDE RECORDS SUMMARY | 2024-07-28 10:06 | XMS_ITS | Encounter Summary ---
Author Organization [facility] Address [address] [place] [address] Care Team Providers Care Security Software Engineer Name Role Phone Gaby Fleming MD Primary Care Provider [phone] Encounter Details Date Type Department Care Team (Late st Contact Info) Description 09/18/2016 Correspondence [facility] 401 [facility] [place], [place] [phone] Jason Barrett MD [address] [place], [place] [phone] [facility] [employer] Social History Tobacco [...] filedocumented in this encounter Care Teams Security Software Engineer Relationship Specialty Start Date End Date Gaby Fleming MD [address] [place] [address] PCP - General 01/29/06 documented as of this encounter
--- OUTSIDE RECORDS SUMMARY | 2024-07-28 10:06 | XMS_ITS | Encounter Summary ---
Author Organization [facility] Address [address] [place] [address] Care Team Providers Care School Administrator Name Role Phone Gaby Fleming MD Primary Care Provider [phone] Encounter Details Date Type Department Care Team [...] on filedocumented in this encounter Care Teams School Administrator Relationship Specialty Start Date End Date Gaby Fleming MD [address] [place] [address] PCP - General 01/29/06 documented as of this encounter
--- OUTSIDE RECORDS SUMMARY | 2024-07-28 10:06 | XMS_ITS | Encounter Summary ---
Author Organization [facility] Address [address] [place] [address] Care Team Providers Care Secondary Special Education Teacher Name Role Phone Gaby Fleming MD Primary Care Provider [phone] Encounter Details Date Type Department Care Team (Latest Contact Info) Description 08/15/1994 Orders Only Myrna Armas [address] [address] Social History Tobacco Use Types Packs/Day Years [...] on filedocumented in this encounter Care Teams Secondary Special Education Teacher Relationship Specialty Start Date End Date Gaby Fleming MD [address] [place] [address] PCP - General 01/29/06 documented as of this encounter
--- OUTSIDE RECORDS SUMMARY | 2024-07-28 10:06 | XMS_ITS | Encounter Summary ---
Author Organization [facility] Address [address] [place] [address] Care Team Providers Care Aerospace Technician Name Role Phone Gaby Fleming MD Primary Care Provider [phone] Encounter Details Date Type Department Care Team (Late st Contact Info) Description 03/28/2015 Correspondence [facility] [address] [place] [address] Gaby Fleming MD [address] [place] [address] DME EQUIPMENT PROOF OF DELIVERY Social [...] on filedocumented in this encounter Care Teams Aerospace Technician Relationship Specialty Start Date End Date Gaby Fleming MD [address] [facility] [place] [address] PCP - General 01/29/06 documented as of this encounter
--- OUTSIDE RECORDS SUMMARY | 2024-07-28 10:06 | XMS_ITS | Encounter Summary ---
Author Organization [facility] Address [address] [place] [address] Care Team Providers Care Tool Lapper Hand Name Role Phone Gaby Fleming MD Primary Care Provider [phone] Encounter Details Date Type Department Care Team (Late st Contact Info) Description 07/17/2015 Correspondence None No Primary/Referring, Phy HME EQUIPMENT DERMATOLOGIST MANAGING PARTNER TICKET CPAP Social History Tobacco Use Types [...] filedocumented in this encounter Care Teams Tool Lapper Hand Relationship Specialty Start Date End Date Gaby Fleming MD [address] [place] [address] PCP - General 01/29/06 documented as of this encounter
--- OUTSIDE RECORDS SUMMARY | 2024-07-28 10:06 | XMS_ITS | Encounter Summary ---
Author Organization [facility] Address [address] [place] [address] Care Team Providers Care Data Entry Name Role Phone Gaby Fleming MD Primary Care Provider [phone] Encounter Details Date Type Department Care Team (Late st Contact Info) Description 07/31/2015 Correspondence External to External, [place] [address] LETTER SUCCESSFULL COMPLETED DBT TREATMENT Social History [...] filedocumented in this encounter Care Teams Data Entry Relationship Specialty Start Date End Date Gaby Fleming MD [address] [place] [address] PCP - General 01/29/06 documented as of this encounter
--- OUTSIDE RECORDS SUMMARY | 2024-07-28 10:06 | XMS_ITS | Encounter Summary ---
Author Organization [facility] Address [address] [place] [address] Care Team Providers Care Fast Food Manager Name Role Phone Gaby Fleming MD Primary Care Provider [phone] Encounter Details Date Type Department Care Team [...] on filedocumented in this encounter Care Teams Fast Food Manager Relationship Specialty Start Date End Date Gaby Fleming MD [address] [place] [address] PCP - General 01/29/06 documented as of this encounter
--- OUTSIDE RECORDS SUMMARY | 2024-07-28 10:06 | XMS_ITS | Encounter Summary ---
Author Organization [facility] Address [address] [place] [address] Care Team Providers Care Fnp Name Role Phone Gaby Fleming MD Primary Care Provider [phone] Encounter Details Date Type Department Care Team (Late st Contact Info) Description 06/30/2014 Outside Hospital External to [facility] Provider DISCHARGE SUMMARY Social History Tobacco [...] on filedocumented in this encounter Care Teams Fnp Relationship Specialty Start Date End Date Gaby Fleming MD [address] [place] [address] PCP - General 01/29/06 documented as of this encounter
--- OUTSIDE RECORDS SUMMARY | 2024-07-28 10:06 | XMS_ITS | Encounter Summary ---
Author Organization [facility] Address [address] [place] [address] Care Team Providers Care Call Center Supervisor Name Role Phone Gaby Fleming MD Primary Care Provider [phone] Encounter Details Date Type Department Care Team (Latest Contact Info) Description 08/19/1994 Orders Only Myrna Armas [address] [address] Social History Tobacco Use Types Packs/Day Years [...] on filedocumented in this encounter Care Teams Call Center Supervisor Relationship Specialty Start Date End Date Gaby Fleming MD [address] [place] [address] PCP - General 01/29/06 documented as of this encounter
--- OUTSIDE RECORDS SUMMARY | 2024-07-28 10:06 | XMS_ITS | Encounter Summary ---
Author Organization [facility] Address [address] [place] [address] Care Team Providers Care Edging Supervisor Name Role Phone Gaby Fleming MD Primary Care Provider [phone] Encounter Details Date Type Department Care Team [...] on filedocumented in this encounter Care Teams Edging Supervisor Relationship Specialty Start Date End Date Gaby Fleming MD [address] [place] [address] PCP - General 01/29/06 documented as of this encounter
[2024-07-28 10:15] LABS: PCR FLU A Negative PCR FLU A (Negative); PCR FLU B Negative PCR FLU B (Negative); SARS PCR* Negative SARS-CoV-2 (Negative)
[2024-07-28 10:24] LABS: Basophils Percent Auto 0.2 % (0.0-3.0); Hematocrit 35.1 % (33.0-51.0); Hemoglobin* 11.6 gm/dL (12.0-16.0); Immature Granulocytes Pct Auto 0.7 %; Lymphocytes Percent Auto 6.7 % (20-44); Mean Corpuscular HGB Conc 33 gm/dL (32-36); Mean Corpuscular Hemoglobin 31 pg (26-34); Mean Corpuscular Volume 93 fL (80-100); Monocytes Percent Auto 8.9 % (0.0-11.0); Neutrophils Percent Auto 83.5 % (42.0-72.0); Platelet Count* 225 K/uL (140-440); RDW Coefficient of Variation % 12.8 % (11.5-15.5); Red Blood Count 3.76 m/uL (4.00-5.20); White Blood Count* 17.73 K/uL (4.50-11.00)
[2024-07-28 10:33] LABS: Slide Review Reflex No
[2024-07-28 10:34] LABS: Chloride* 95 mmol/L (96-114); Sodium* 130 mmol/L (135-149)
[2024-07-28 10:37] LABS: Blood Urea Nitrogen* 14 mg/dL (7-30); Creatinine* 0.9 mg/dL (0.5-1.5); Est. Creatinine Clearance* 43.18; Estimated Glomerular Filt Rate 70 ml/min
[2024-07-28 10:38] LABS: Anion Gap 7 mEq/L (7-15); Calcium* 8.4 mg/dL (8.4-10.6); Carbon Dioxide* 28 mmol/L (20-32); Glucose* 112 mg/dL (60-115)
[2024-07-28 10:41] LABS: C Reactive Protein* 6.4 mg/dL (0.5-1.0)
[2024-07-28 10:44] LABS: PCR RSV Negative PCR RSV (Negative)
[2024-07-28] MEDS: ALBUTEROL SULFATE 2.5 MG/3 ML VIAL.NEB NEB (11:08)
[2024-07-28] MEDS: 0.9 % SODIUM CHLORIDE 1000 ml 1,000 ML IV (11:27)
[2024-07-28 12:16] LABS: Lactate* 1.8 mmol/L (0.5-1.9)
[2024-07-28] MEDS: cefTRIAXone 1 GM in 0.9 % SODIUM CHLORIDE Mini-bag 100 ML IVPB (13:47)
[2024-07-28 13:49] LABS: HCO3 VBG 29 mmol/L (21-28); PCO2 VBG 49 mmHG (40-50); PO2 VBG 34.3 mmHG (25-47); pH VBG 7.376 (7.32-7.43)
[2024-07-28 14:49] LABS: Procalcitonin* 2.47 ng/mL (<0.50)
[2024-07-28 14:56] LABS: Troponin I* < 0.01 ng/mL (0.01-0.04)
[2024-07-28 15:09] LABS: Thyroid Stimulating Hormone* 0.998 uIU/mL (0.270-4.20)
--- NOTE | 2024-07-28 15:21 | P.IMHP_ITS ---
Assessment and Plan Assessment and plan (1) URI (upper respiratory infection): Problem comment: Acutely ill with relatively severe cough for 5 days. No hypoxia. Initial viral screening negative. Chest x-ray with kira-hilar prominence possibly related to viral infection Status: Acute (2) Weakness: Problem comment: Acute on chronic Status: Acute (3) Chronic diarrhea: Problem comment: Longstanding chronic diarrhea. Nonbloody. Previous evaluation has not shown a infectious or inflammatory condition. Diagnosed as irritable bowel syndrome. On chronic Imodium Status: Acute (4) Physical deconditioning: Problem comment: Quite sedentary. Prominent fatigue and weakness limiting activity Status: Acute (5) Hypotension: Problem comment: Patient has had chronically low blood pressure. Head acute hypotension requiring pressors in July of 2022 when she had a hip fracture. At that time her hemoglobin dropped from 12-9.7. Investigation at that time did not show other cause of hypotension and testing for adrenal insufficiency was borderline low. She was treated with steroids and midodrine and Florinef. She has followed up with Endocrinology at [facility]. They indicate that repeat testing shows no evidence for diagnosis of adrenal insufficiency or disorder of the hypothalamus pituitary adrenal axis. They recommended discontinuing hydrocortisone except for stress dose hydrocortisone with illness for the next year. Unclear if she has done this. Will give stress dose hydrocortisone for this admission Status: Acute (6) UTI (urinary tract infection): Problem comment: On this admission has abnormal urinalysis without urinary symptoms Status: Acute Plan 69-year-old female with multiple chronic medical problems and disabilities admitted with what is probably a viral pneumonia causing worsening of her chronic disabilities. At this point will provide stress dose hydrocortisone and antibiotics pending clinical course and culture Total Time Spent Total Time Spent: Total time spent today is 80 minutes in reviewing outside records, coordination of care and discussing with patient and other providers ongoing management of acute and chronic illness Hospitalist- H&P: HPI History of Present Illness Date Seen: 07/28/24 Chief complaint: weakness Narrative: Sophie Leon is a 69 year old female with multiple chronic disabilities noted below who presents emergency room with profound weakness and coughing for about 5 days. Patient is exposed to her daughter who has had a similar respiratory illness. About 5 days ago she became ill with coughing. Coughing was occasionally so severe that it led to vomiting. She reports subjective fever and chills. In the last couple days she has been so weak that she is having a hard time walking. She has been able to drink fluids but is not eating much solid food. She has had no blood in her emesis. She has chronic diarrhea which persists. She had previously been diagnosed with adrenal insufficiency. July of 2022 she was here with a right hip fracture with ORIF. Postoperatively she had profound hypotension requiring pressor support. She had a hemoglobin drop from 12 preoperatively to 9.7. There was no other definite cause for her hypotension. She was tested for adrenal insufficiency and had low intermediate results raising concerns for adrenal insufficiency. She subsequently has been treated for chronic with adrenal insufficiency with prednisone then hydrocortisone. Also has been treated with fludrocortisone and midodrine. She did not get relief of her chronic fatigue, dizziness, diarrhea with steroid treatment. She has been followed by [facility] and was seen there most recently February of 2024. Notes from that visit indicate that subsequent testing has not confirmed any problems with adrenal insufficiency or problems with the hypothalamic pituitary adrenal axis. She was advised to taper off hydrocorti sone over 3 weeks. Uncertain if she has stopped her hydrocortisone. She was also advised to continue to use stress dose steroids over the next year which she also has not done. The conclusion was that she had some adrenal insufficiency which was self-limited and has resolved but she should continue to do stress dose steroids for your. She was seen by her primary care provider 3 weeks ago and diagnosis of possible POTS (postural tachycardia syndrome) was made. She continues to have ongoing fatigue, malaise, dizziness, episodes of possible syncope, chronic diarrhea. Chronic medical problems: Chronic fatigue, malaise, weakness, low blood pressure/presyncope or syncope. 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 Review of Systems Narrative: Multiple chronic symptoms as above. Patient reports she has just been feeling much worse with her chronic symptoms over the last few days of this respiratory illness. Specifically profound weakness fatigue malaise and ongoing cough. [facility] Medical History (Updated 07/28/24 @ 16:02 by Zohaib Romano MD) Tear of medial meniscus of right knee ?S83.241A - Other tear of medial meniscus, current injury, right knee, initial encounter (ICD-10) Osteoarthritis of right knee ?M17.11 - Unilateral primary osteoarthritis, right knee (ICD-10) Irritable bowel syndrome ?K58.9 - Irritable bowel syndrome without diarrhea (ICD-10) Physical deconditioning ?R53.81 - Other malaise (ICD-10) Chronic diarrhea ?K52.9 - Noninfective gastroenteritis and colitis, unspecified (ICD-10) Anxiety ?F41.9 - Anxiety disorder, unspecified (ICD-10) History of prediabetes ?Z87.898 - Personal history of other specified conditions (ICD-10) History of major depression ?Z86.59 - Personal history of other mental and behavioral disorders (ICD-10) Surgical History S/P ORIF (open reduction internal fixation) fracture (08/10/22) ?Z98.890 - Other specified postprocedural states (ICD-10) ?Z87.81 - Personal history of (healed) traumatic fracture (ICD-10) History of loop recorder (03/17/19) ?Z98.890 - Other specified postprocedural states (ICD-10) History of partial thyroidectomy (1999) ?E89.0 - Postprocedural hypothyroidism (ICD-10) History of cholecystectomy (1983) ?Z90.49 - Acquired absence of other specified parts of digestive tract (ICD- 10) History of bladder suspension procedure (2014) ?Z98.890 - Other specified postprocedural states (ICD-10) ?Z87.448 - Personal history of other diseases of urinary system (ICD-10) Family History Mother Alcoholism Social History Narrative: Nonsmoker. Does not exercise. . 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 5 adult children. She lives with her daughter who has mental disability-?Autism Highest level of school completed/degree received: Master's degree Smoking Status: Never smoker Do you use any of these nicotine containing products: None Second hand tobacco smoke exposure: No How often do you have a drink containing alcohol: never AUDIT-C Alcohol total score: 0 Non-prescribed substance use: denies use Caffeine: No service: No Meds Home Medications and Allergies Home Medications ?Medication ?Instructions ?Recorded ?Confirmed ?Type loperamide 2 mg capsule 4 mg PO QID PRN 10/02/21 07/28/24 History montelukast 10 mg tablet 10 mg PO HS 10/02/21 07/28/24 History albuterol sulfate 90 mcg/actuation 2 puff inhalation Q4H PRN 06/07/22 07/28/24 History aerosol inhaler cevimeline 30 mg capsule 1 cap PO TID 06/07/22 07/28/24 History lorazepam 0.5 mg tablet 0.5 mg PO DAILY PRN 06/07/22 07/28/24 History dicyclomine 10 mg capsule 10 mg PO Q6H PRN cramps 08/10/22 07/28/24 History venlafaxine 150 mg 300 mg PO DAILY 08/10/22 07/28/24 History capsule,extended release 24 hr dextroamphetamine-amphetamine ER 1 cap PO DAILY 09/20/22 07/28/24 History 10 mg 24hr capsule,extend release divalproex 500 mg tablet,delayed 2,000 mg PO DAILY 09/20/22 07/28/24 History release doxepin 10 mg capsule 10 mg PO DAILY 09/20/22 07/28/24 History famotidine 40 mg tablet 40 mg PO HS 06/17/24 07/28/24 History fluticasone 500 mcg-salmeterol 50 1 inh inhalation BID 06/17/24 07/28/24 History mcg/dose blistr powdr for inhalation hydrocortisone 5 mg tablet 5 mg PO DAILY 06/17/24 07/28/24 History omeprazole 40 mg capsule,delayed 40 mg PO DAILY 06/17/24 07/28/24 History release calcium 600 mg (as 1 tab PO BID 07/28/24 07/28/24 History carbonate)-vitamin D3 10 mcg (400 unit) tablet metoprolol succinate 25 mg 25 mg PO DAILY 07/28/24 07/28/24 History tablet,extended release 24 hr trazodone 150 mg tablet 75 mg PO HS 07/28/24 07/28/24 History Home Medication Comments: Patient does not know her medications. Her home health nurse sets up her medications and she reports that she takes them. Allergies Allergy/AdvReac Type Severity Reaction Status Date / Time nitrofurantoin Allergy Unknown Verified 06/25/24 10:04 Iodinated Contrast Media AdvReac Rash Verified 07/26/24 12:57 Sulfa (Sulfonamide AdvReac Rash Verified 07/26/24 12:57 Antibiotics) hand perishable fruit inspector Allergy Severe Anaphylaxis Uncoded 06/17/24 12:31 Ioxaglate sodium Allergy Unknown Uncoded 06/17/24 12:31 Exam Narrative: Exam Narrative: She is sleeping and arouses to voice. She has a persistent barky cough noted. No respiratory distress. Head is normal. Eyes normal. Oropharynx normal. Neck is supple without mass or adenopathy or stridor. No tenderness. Respirations are clear to auscultation. No wheezing rales or rhonchi. Breathing is unlabored. Cardiovascular: S1, S2, regular rate and rhythm. Abdomen: Bowel sounds active. Abdomen is soft without tenderness or mass. Extremities without edema or tenderness. Intact peripheral pulses. Good capillary refill. No rash. Const: Vital Signs, click to edit/add: Vital Signs - 24 hr 07/28/24 09:28 07/28/24 09:29 07/28/24 09:31 Temperature 98.4 F Pulse Rate 103 H Pulse Rate [Pulse Oximeter] 101 H Respiratory Rate 18 Blood Pressure 117/107 H Blood Pressure [Le ft Upper Arm] 100/64 Pulse Oximetry 94 93 95 Oxygen Delivery Me thod Nasal Cannula Nasal Cannula Nasal Cannula Oxygen Flow Rate 1 1 07/28/24 09:31 07/28/24 09:32 07/28/24 09:55 Temperature Pulse Rate 97 102 H Pulse Rate [Pulse Oximeter] Respiratory Rate Blood Pressure 100/64 Blood Pressure [Le ft Upper Arm] Pulse Oximetry 94 95 93 Oxygen Delivery Me thod Nasal Cannula Nasal Cannula Oxygen Flow Rate 1 1 07/28/24 09:55 07/28/24 10:13 07/28/24 10:15 Temperature Pulse Rate 91 88 Pulse Rate [Pulse Oximeter] Respiratory Rate Blood Pressure 90/51 L Blood Pressure [Le ft Upper Arm] Pulse Oximetry 93 90 90 Oxygen Delivery Me thod Room Air Room Air Room Air Oxygen Flow Rate 07/28/24 10:16 07/28/24 10:17 07/28/24 10:30 Temperature Pulse Rate 91 91 104 H Pulse Rate [Pulse Oximeter] Respiratory Rate Blood Pressure 92/49 L Blood Pressure [Le ft Upper Arm] Pulse Oximetry 90 92 90 Oxygen Delivery Me thod Room Air Oxygen Flow Rate 07/28/24 10:32 07/28/24 11:01 07/28/24 11:21 Temperature Pulse Rate 91 87 88 Pulse Rate [Pulse Oximeter] Respiratory Rate Blood Pressure 93/64 94/43 L 87/63 L Blood Pressure [Le ft Upper Arm] Pulse Oximetry 90 92 90 Oxygen Delivery Me thod Room Air Room Air Oxygen Flow Rate 07/28/24 11:30 07/28/24 11:31 07/28/24 11:42 Temperature Pulse Rate 95 93 84 Pulse Rate [Pulse Oximeter] Respiratory Rate Blood Pressure 90/35 L 94/43 L Blood Pressure [Le ft Upper Arm] Pulse Oximetry 90 90 91 Oxygen Delivery Me thod Room Air Room Air Room Air Oxygen Flow Rate 07/28/24 11:45 07/28/24 12:00 07/28/24 12:15 Temperature Pulse Rate 84 81 79 Pulse Rate [Pulse Oximeter] Respiratory Rate Blood Pressure Blood Pressure [Le ft Upper Arm] Pulse Oximetry 90 91 92 Oxygen Delivery Me thod Room Air Room Air Room Air Oxygen Flow Rate 07/28/24 12:24 07/28/24 12:30 07/28/24 12:45 Temperature Pulse Rate 78 85 88 Pulse Rate [Pulse Oximeter] Respiratory Rate Blood Pressure Blood Pressure [Le ft Upper Arm] Pulse Oximetry 92 92 90 Oxygen Delivery Me thod Oxygen Flow Rate 07/28/24 12:46 07/28/24 12:47 07/28/24 13:00 Temperature Pulse Rate 76 75 74 Pulse Rate [Pulse Oximeter] Respiratory Rate Blood Pressure 101/50 L Blood Pressure [Le ft Upper Arm] Pulse Oximetry 93 91 93 Oxygen Delivery Me thod Oxygen Flow Rate 07/28/24 13:01 07/28/24 13:15 07/28/24 13:30 Temperature Pulse Rate 76 73 75 Pulse Rate [Pulse Oximeter] Respiratory Rate Blood Pressure 90/59 L Blood Pressure [Le ft Upper Arm] Pulse Oximetry 92 93 94 Oxygen Delivery Me thod Oxygen Flow Rate 07/28/24 13:42 07/28/24 13:45 Temperature Pulse Rate 71 72 Pulse Rate [Pulse Oximeter] Respiratory Rate Blood Pressure 103/62 Blood Pressure [Le ft Upper Arm] Pulse Oximetry 91 94 Oxygen Delivery Me thod Oxygen Flow Rate Documenting provider has reviewed patient's vital signs: yes Hospitalist - H&P: Result Labs Labs: Short CBC 07/28/24 Range/Units 09:39 WBC 17.73 H (4.50-11.00) K/uL Hgb 11.6 L (12.0-16.0) gm/dL Hct 35.1 (33.0-51.0) % Plt Count 225 (140-440) K/uL BMP 07/28/24 09:39 Sodium 130 L Potassium 4.0 Chloride 95 L Carbon Dioxide 28 BUN 14 Creatinine 0.9 Glucose 112 Calcium 8.4 Cardiac Enzymes 07/28/24 Range/Units 09:39 Troponin I < 0.01 (0.01-0.04) ng/mL Imaging Chest x-ray: Radiologist's impression: INDICATION: Cough and hypoxia TECHNIQUE: Chest 2 views. COMPARISON: Chest radiograph 07/26/2024 FINDINGS: Cardiovascular and mediastinum: Cardiomediastinal silhouette is stable. Lungs and pleural spaces: Mild perihilar prominence. No focal consolidation. Elevation of the right hemidiaphragm is similar compared to prior. No pneumothorax or pleural effusion. Bones and soft tissues: Loop recorder in the left chest wall. IMPRESSION: New mild perihilar prominence can be seen with mild pulmonary edema or viral infection.
[2024-07-28 15:33] LABS: D Dimer Quantitative* 0.95 ug/ml (0.00-0.50)
[2024-07-28] MEDS: AZITHROMYCIN 250 MG TABLET 500 MG PO (16:42)
--- NOTE | 2024-07-28 16:42 | PC.SOCIAL ---
Social work: Called pt's home care agency, [facility] [phone] and spoke with pt's nurse, Pennie, who will fax medication list to the hospital. Social work to follow up with home care as needed at discharge.
[2024-07-28] MEDS: HYDROCORTISONE 10 MG TABLET 20 MG PO (17:27)
[2024-07-28] MEDS: GUAIF/DM 200-20 MG/20 ML 118 ML LIQUID PO ×2 (17:29→23:46)
[2024-07-28] MEDS: TRAZODONE HCL 50 MG TABLET 75 MG PO (21:05)
[2024-07-28] MEDS: SODIUM CHLORIDE 0.9 % (FLUSH) 10 ML SYRINGE 5 ML IVF (21:06)
[2024-07-28] MEDS: MONTELUKAST 10 MG TABLET PO (21:06)
[2024-07-28] MEDS: FAMOTIDINE 20 MG TABLET 40 MG PO (21:06)
--- NOTE | 2024-07-28 22:42 | PC.NURSE ---
Patient admitted obs from ED for ongoing weakness and Strong cough. Patient ambulates with SBA and walker. Patients bed and chair alarmed for Safety.
[2024-07-28] MEDS: ACETAMINOPHEN 325 MG TABLET 650 MG PO (23:47)
[2024-07-28] MEDS: MELATONIN 3 MG TABLET PO (23:47)
[2024-07-29 03:02] VITALS: BP 90/67; PULSE 71; RESP 18; TEMP 36.9; O2SAT 92
[2024-07-29] MEDS: GUAIF/DM 200-20 MG/20 ML 118 ML LIQUID PO (04:31)
--- NOTE | 2024-07-29 05:05 | PC.NURSE ---
Pt rested well this night. Up SBA with walker and voiding. NO BM this night. Afebrile. Non-productive cough intermittent. Pt pleasant and oriented.
[2024-07-29] MEDS: OMEPRAZOLE 20 MG CAPSULE DR 40 MG PO (06:04)
[2024-07-29 06:35] LABS: Basophils Absolute Auto 0.02 K/uL (0.00-0.30); Basophils Percent Auto 0.2 % (0.0-3.0); Eosinophils Absolute Auto 0.01 K/uL (0.00-0.50); Eosinophils Percent Auto 0.1 % (0.0-7.0); Hematocrit 32.4 % (33.0-51.0); Hemoglobin* 10.6 gm/dL (12.0-16.0); Immature Granulocytes Abs Auto 0.03 K/uL (0.00-0.30); Immature Granulocytes Pct Auto 0.3 %; Lymphocytes Absolute Auto 2.18 K/uL (0.90-2.90); Lymphocytes Percent Auto 24.6 % (20-44); Mean Corpuscular HGB Conc 33 gm/dL (32-36); Mean Corpuscular Hemoglobin 31 pg (26-34); Mean Corpuscular Volume 94 fL (80-100); Monocytes Percent Auto 9.7 % (0.0-11.0); Neutrophils Absolute Auto 5.77 K/uL (1.7-7.0); Neutrophils Percent Auto 65.1 % (42.0-72.0); Platelet Count* 201 K/uL (140-440); Red Blood Count 3.45 m/uL (4.00-5.20); White Blood Count* 8.87 K/uL (4.50-11.00)
[2024-07-29 06:37] LABS: Slide Review Reflex No
[2024-07-29 06:43] LABS: Chloride* 100 mmol/L (96-114); Potassium* 3.6 mmol/L (3.6-5.1); Sodium* 136 mmol/L (135-149)
[2024-07-29 06:46] LABS: Anion Gap 7 mEq/L (7-15); Blood Urea Nitrogen* 15 mg/dL (7-30); Calcium* 8.3 mg/dL (8.4-10.6); Carbon Dioxide* 29 mmol/L (20-32); Creatinine* 0.7 mg/dL (0.5-1.5); Est. Creatinine Clearance* 43.18; Estimated Glomerular Filt Rate 95 ml/min; Glucose* 96 mg/dL (60-115)
[2024-07-29 07:32] LABS: C Reactive Protein* 14.6 mg/dL (0.5-1.0)
[2024-07-29] MEDS: HYDROCORTISONE 10 MG TABLET 20 MG PO ×2 (07:54→20:08)
[2024-07-29 08:00] VITALS: BP 110/59; PULSE 79; RESP 18; TEMP 36.7; O2SAT 90
[2024-07-29] MEDS: VENLAFAXINE ER 75 MG CAPSULE 300 MG PO (08:59)
[2024-07-29] MEDS: DIVALPROEX DELAYED RELEASE 250 MG TABLET 2000 MG PO (09:00)
[2024-07-29] MEDS: AZITHROMYCIN 250 MG TABLET 500 MG PO (09:00)
[2024-07-29] MEDS: METOPROLOL SUCCINATE (XL) 25 MG TAB PO (09:00)
[2024-07-29] MEDS: SODIUM CHLORIDE 0.9 % (FLUSH) 10 ML SYRINGE 5 ML IVF ×2 (09:01→20:25)
[2024-07-29] MEDS: cefTRIAXone 1 GM in 0.9 % SODIUM CHLORIDE Mini-bag 100 ML IVPB (09:02)
[2024-07-29] MEDS: BENZONATATE 100 MG CAPSULE 200 MG PO (09:20)
[2024-07-29] MEDS: GUAIF/CODEINE 200/20MG/10 ML SOLUTION PO ×3 (09:20→20:08)
[2024-07-29] MEDS: 0.9 % SODIUM CHLORIDE 250 ml IV (09:21)
--- NOTE | 2024-07-29 09:23 | PM.IMPN1 ---
Assessment and Plan Assessment and plan (1) Pneumonia: Problem comment: Acutely ill with relatively severe cough for 5 days. No hypoxia. Initial viral screening negative. Chest x-ray with kira-hilar prominence possibly related to viral infection Significant leukocytosis with left shift - trending down, procalcitonin >2, CRP trending up, BC x2 pending Continue IV ceftriaxone and azithromycin Mucinex, Robitussin/codeine (patient requested) Albuterol nebs q.4 hours while awake Pertussis, strep pneumo/Legionella pending Status: Acute (2) Weakness: Problem comment: Acute on chronic Status: Acute (3) Physical deconditioning: Problem comment: Quite sedentary. Prominent fatigue and weakness limiting activity Status: Acute (4) Chronic diarrhea: Problem comment: Longstanding chronic diarrhea. Nonbloody. Previous evaluation has not shown a infectious or inflammatory condition. Diagnosed as irritable bowel syndrome. On chronic Imodium Status: Acute (5) UTI (urinary tract infection): Problem comment: On this admission has abnormal urinalysis without urinary symptoms On ceftriaxone and azithromycin as above UC pending Status: Acute (6) Hypotension: Problem comment: Patient has had chronically low blood pressure. Head acute hypotension requiring pressors in July of 2022 when she had a hip fracture. At that time her hemoglobin dropped from 12-9.7. Investigation at that time did not show other cause of hypotension and testing for adrenal insufficiency was borderline low. She was treated with steroids and midodrine and Florinef. She has followed up with [facility]ology [facility]. They indicate that repeat testing shows no evidence for diagnosis of adrenal insufficiency or disorder of the hypothalamus pituitary adrenal axis. They recommended discontinuing hydrocortisone except for stress dose hydrocortisone with illness for the next year. Unclear if she has done this. Will give stress dose hydrocortisone for this admission Status: Acute (7) Steroid long-term use: Problem comment: Historically diagnosed with [place]'s disease which has since been ruled out by [facility]. Normal oiffiizkfvol-ndtqlkljk-kimxavh axis testing noted. Taper from chronic fludrocortisone began February 2024 - Dr. Tang's note (03/16/24) indicates she should have stopped hydrocortisone by week 3. Pharmacy confirmed with patient after reviewing home med list that she is no longer taking this Will need stress doses for 1 year as needed following taper - initiated on admission Status: Acute Total Time Spent Total Time Spent: Today I spent 45 minutes seeing the patient, reviewing [facility]panse and EPIC notes/diagnostics, discussing the care plan with our care time that includes social work, PT/OT, pharmacy, RT, fci and documenting my impressions and plan in the medical record. Subjective Date Seen: 07/29/24 Interval history: Patient is seen sitting up in bed this morning. Reports no change in how she is feeling. Continues with a dry hacky cough. Complains of chest congestion. Has a mild global headache secondary to coughing. Tolerating orals without nausea vomiting. Remains afebrile. WBC downtrending. CRP is up. Chronic low blood pressures. Exam Narrative: Exam Narrative: PHYSICAL EXAM General:Conversant, appears tired otherwise NAD HEENT: Normocephalic, atraumatic, sclera white, EOMI, oral mucosa moist Cardiovascular: RRR, S1S2. No pitting edema Pulmonary: Diffusely diminished, few expiratory wheezes. No dyspnea. Dry, harsh, bronchospastic cough Abdominal: Soft, nondistended, NTTP Neurological: Alert, answering questions appropriately, cranial nerves intact, no focal findings Extremities: No gross joint deformity or swelling. AROMI. Neurovascularly intact Skin: Warm, dry. Const: Vital Signs, click to edit/add: Vital Signs - 24 hr 07/28/24 09:28 07/28/24 09:29 07/28/24 09:31 Temperature 98.4 F Pulse Rate 103 H Pulse Rate [Left P ulse Oximeter] Pulse Rate [Pulse Oximeter] 101 H Respiratory Rate 18 Blood Pressure 117/107 H Blood Pressure [Le ft Upper Arm] 100/64 Blood Pressure [Ri ght Arm] Pulse Oximetry 94 93 95 Oxygen Delivery Me thod Nasal Cannula Nasal Cannula Nasal Cannula Oxygen Flow Rate 1 1 07/28/24 09:31 07/28/24 09:32 07/28/24 09:55 Temperature Pulse Rate 97 102 H Pulse Rate [Left P ulse Oximeter] Pulse Rate [Pulse Oximeter] Respiratory Rate Blood Pressure 100/64 Blood Pressure [Le ft Upper Arm] Blood Pressure [Ri ght Arm] Pulse Oximetry 94 95 93 Oxygen Delivery Me thod Nasal Cannula Nasal Cannula Oxygen Flow Rate 1 1 07/28/24 09:55 07/28/24 10:13 07/28/24 10:15 Temperature Pulse Rate 91 88 Pulse Rate [Left P ulse Oximeter] Pulse Rate [Pulse Oximeter] Respiratory Rate Blood Pressure 90/51 L Blood Pressure [Le ft Upper Arm] Blood Pressure [Ri ght Arm] Pulse Oximetry 93 90 90 Oxygen Delivery Me thod Room Air Room Air Room Air Oxygen Flow Rate 07/28/24 10:16 07/28/24 10:17 07/28/24 10:30 Temperature Pulse Rate 91 91 104 H Pulse Rate [Left P ulse Oximeter] Pulse Rate [Pulse Oximeter] Respiratory Rate Blood Pressure 92/49 L Blood Pressure [Le ft Upper Arm] Blood Pressure [Ri ght Arm] Pulse Oximetry 90 92 90 Oxygen Delivery Me thod Room Air Oxygen Flow Rate 07/28/24 10:32 07/28/24 11:01 07/28/24 11:21 Temperature Pulse Rate 91 87 88 Pulse Rate [Left P ulse Oximeter] Pulse Rate [Pulse Oximeter] Respiratory Rate Blood Pressure 93/64 94/43 L 87/63 L Blood Pressure [Le ft Upper Arm] Blood Pressure [Ri ght Arm] Pulse Oximetry 90 92 90 Oxygen Delivery Me thod Room Air Room Air Oxygen Flow Rate 07/28/24 11:30 07/28/24 11:31 07/28/24 11:42 Temperature Pulse Rate 95 93 84 Pulse Rate [Left P ulse Oximeter] Pulse Rate [Pulse Oximeter] Respiratory Rate Blood Pressure 90/35 L 94/43 L Blood Pressure [Le ft Upper Arm] Blood Pressure [Ri ght Arm] Pulse Oximetry 90 90 91 Oxygen Delivery Me thod Room Air Room Air Room Air Oxygen Flow Rate 07/28/24 11:45 07/28/24 12:00 07/28/24 12:15 Temperature Pulse Rate 84 81 79 Pulse Rate [Left P ulse Oximeter] Pulse Rate [Pulse Oximeter] Respiratory Rate Blood Pressure Blood Pressure [Le ft Upper Arm] Blood Pressure [Ri ght Arm] Pulse Oximetry 90 91 92 Oxygen Delivery Me thod Room Air Room Air Room Air Oxygen Flow Rate 07/28/24 12:24 07/28/24 12:30 07/28/24 12:45 Temperature Pulse Rate 78 85 88 Pulse Rate [Left P ulse Oximeter] Pulse Rate [Pulse Oximeter] Respiratory Rate Blood Pressure Blood Pressure [Le ft Upper Arm] Blood Pressure [Ri ght Arm] Pulse Oximetry 92 92 90 Oxygen Delivery Me thod Oxygen Flow Rate 07/28/24 12:46 07/28/24 12:47 07/28/24 13:00 Temperature Pulse Rate 76 75 74 Pulse Rate [Left P ulse Oximeter] Pulse Rate [Pulse Oximeter] Respiratory Rate Blood Pressure 101/50 L Blood Pressure [Le ft Upper Arm] Blood Pressure [Ri ght Arm] Pulse Oximetry 93 91 93 Oxygen Delivery Me thod Oxygen Flow Rate 07/28/24 13:01 07/28/24 13:15 07/28/24 13:30 Temperature Pulse Rate 76 73 75 Pulse Rate [Left P ulse Oximeter] Pulse Rate [Pulse Oximeter] Respiratory Rate Blood Pressure 90/59 L Blood Pressure [Le ft Upper Arm] Blood Pressure [Ri ght Arm] Pulse Oximetry 92 93 94 Oxygen Delivery Me thod Oxygen Flow Rate 07/28/24 13:42 07/28/24 13:45 07/28/24 15:31 Temperature 98.3 F Pulse Rate 71 72 Pulse Rate [Left P ulse Oximeter] 89 Pulse Rate [Pulse Oximeter] Respiratory Rate 17 Blood Pressure 103/62 Blood Pressure [Le ft Upper Arm] Blood Pressure [Ri ght Arm] 107/52 L Pulse Oximetry 91 94 95 Oxygen Delivery Me thod Room Air Oxygen Flow Rate 1 07/28/24 15:31 07/28/24 15:33 07/28/24 18:58 Temperature 98.3 F 97.9 F Pulse Rate Pulse Rate [Left P ulse Oximeter] 89 79 Pulse Rate [Pulse Oximeter] Respiratory Rate 17 17 14 Blood Pressure Blood Pressure [Le ft Upper Arm] Blood Pressure [Ri ght Arm] 107/52 L 91/49 L Pulse Oximetry 95 95 93 Oxygen Delivery Me thod Room Air Room Air Room Air Oxygen Flow Rate 1 07/28/24 23:41 07/28/24 23:47 07/28/24 23:52 Temperature 99.2 F 99.2 F Pulse Rate Pulse Rate [Left P ulse Oximeter] 72 72 Pulse Rate [Pulse Oximeter] Respiratory Rate 18 18 Blood Pressure Blood Pressure [Le ft Upper Arm] Blood Pressure [Ri ght Arm] 99/52 L Pulse Oximetry 92 Oxygen Delivery Me thod Room Air Oxygen Flow Rate 07/29/24 03:02 Temperature 98.4 F Pulse Rate Pulse Rate [Left P ulse Oximeter] 71 Pulse Rate [Pulse Oximeter] Respiratory Rate 18 Blood Pressure Blood Pressure [Le ft Upper Arm] Blood Pressure [Ri ght Arm] 90/67 Pulse Oximetry 92 Oxygen Delivery Me thod Room Air Oxygen Flow Rate 0 Labs Labs: Laboratory Results - last 24 hr 07/28/24 07/28/24 07/28/24 09:29 09:39 10:35 WBC 17.73 H RBC 3.76 L Hgb 11.6 L Hct 35.1 MCV 93 MCH 31 MCHC 33 RDW Coeff of Quirino 12.8 Plt Count 225 Neut % (Auto) 83.5 H Lymph % (Auto) 6.7 L Marshall % (Auto) 8.9 Eos % (Auto) 0.0 Baso % (Auto) 0.2 Neut # (Auto) 14.80 H Lymph # (Auto) 1.20 Marshall # (Auto) 1.60 H Eos # (Auto) 0.00 Baso # (Auto) 0.00 Abs Immat Gran (auto) 0.10 Imm/Tot Granulo (auto) 0.7 D-Dimer Quant (PE/DVT) 0.95 H VBG pH 7.376 VBG pCO2 49 VBG pO2 34.3 VBG HCO3 29 H Sodium 130 L Potassium 4.0 Chloride 95 L Carbon Dioxide 28 Anion Gap 7 BUN 14 Creatinine 0.9 Estimated Creat Clear 43.18 Estimated GFR 70 Glucose 112 Lactate Calcium 8.4 Troponin I < 0.01 C-Reactive Protein 6.4 H Procalcitonin 2.47 H TSH 0.998 SARS-CoV-2 (PCR) Negative SARS-CoV-2 Influenza Type A (PCR) Negative PCR FLU A Influenza Type B (PCR) Negative PCR FLU B RSV (PCR) Negative PCR RSV Lab Acknowledgement Test Added 07/28/24 07/28/24 07/28/24 12:03 13:44 14:13 WBC RBC Hgb Hct MCV MCH MCHC RDW Coeff of Quirino Plt Count Neut % (Auto) Lymph % (Auto) Marshall % (Auto) Eos % (Auto) Baso % (Auto) Neut # (Auto) Lymph # (Auto) Marshall # (Auto) Eos # (Auto) Baso # (Auto) Abs Immat Gran (auto) Imm/Tot Granulo (auto) D-Dimer Quant (PE/DVT) VBG pH VBG pCO2 VBG pO2 VBG HCO3 Sodium Potassium Chloride Carbon Dioxide Anion Gap BUN Creatinine Estimated Creat Clear Estimated GFR Glucose Lactate 1.8 Calcium Troponin I C-Reactive Protein Procalcitonin TSH SARS-CoV-2 (PCR) Influenza Type A (PCR) Influenza Type B (PCR) RSV (PCR) Lab Acknowledgement Test Added Test Added 07/29/24 06:10 WBC 8.87 RBC 3.45 L Hgb 10.6 L Hct 32.4 L MCV 94 MCH 31 MCHC 33 RDW Coeff of Quirino 13.0 Plt Count 201 Neut % (Auto) 65.1 Lymph % (Auto) 24.6 Marshall % (Auto) 9.7 Eos % (Auto) 0.1 Baso % (Auto) 0.2 Neut # (Auto) 5.77 Lymph # (Auto) 2.18 Marshall # (Auto) 0.90 Eos # (Auto) 0.01 Baso # (Auto) 0.02 Abs Immat Gran (auto) 0.03 Imm/Tot Granulo (auto) 0.3 D-Dimer Quant (PE/DVT) VBG pH VBG pCO2 VBG pO2 VBG HCO3 Sodium 136 Potassium 3.6 Chloride 100 Carbon Dioxide 29 Anion Gap 7 BUN 15 Creatinine 0.7 Estimated Creat Clear 43.18 Estimated GFR 95 Glucose 96 Lactate Calcium 8.3 L Troponin I C-Reactive Protein 14.6 H Procalcitonin TSH SARS-CoV-2 (PCR) Influenza Type A (PCR) Influenza Type B (PCR) RSV (PCR) Lab Acknowledgement
[2024-07-29] MEDS: guaiFENesin 600 MG TAB.ER.12H PO ×2 (10:25→20:13)
[2024-07-29] MEDS: ALBUTEROL SULFATE 2.5 MG/3 ML VIAL.NEB NEB ×5 (10:25→23:53)
[2024-07-29 10:48] LABS: S pneumo Ag Urine S. pneumo Negative (Negative)
[2024-07-29 10:49] LABS: Legionella pneumo Ag Urine L. pneumo Negative (Negative)
[2024-07-29 10:54] VITALS: BP 110/59; PULSE 79; RESP 18; TEMP 36.7; O2SAT 90
--- NOTE | 2024-07-29 12:59 | PC.NURSE ---
Shift Summary: Patient pleasant and cooperative. Up with SBA and walker. Expiratory wheeze noted and dry cough, patient has difficulty taking a deep breath due to cough. New order for scheduled nebulizer, see MAY. Cough managed with PRN and scheduled medication. Vitals stable and WNL. C/o discomfort/soreness in abdomen related to cough, denied need for pain medication. Tolerating regular diet, denies nausea. Denies SOB, o2 sat >90% on RA.
[2024-07-29 15:45] VITALS: BP 117/73; PULSE 88; RESP 18; TEMP 36.6; O2SAT 93
[2024-07-29 19:00] VITALS: BP 112/69; PULSE 86; RESP 18; TEMP 36.9; O2SAT 91
[2024-07-29] MEDS: TRAZODONE HCL 50 MG TABLET 75 MG PO (20:11)
[2024-07-29] MEDS: FAMOTIDINE 20 MG TABLET 40 MG PO (20:12)
[2024-07-29] MEDS: MONTELUKAST 10 MG TABLET PO (20:13)
--- NOTE | 2024-07-29 22:38 | PC.NURSE ---
The pt has been pleasant and cooperative; denied chest pain; short of breath noted with exertion - the pt recovers at rest without any interventions. Spo2 has been in the 90s in RA. Frequent dry cough noted; the cough has been managed with PRN cough medication. The pt stated that she is feeling better. No fever noted
[2024-07-29 23:00] VITALS: BP 95/59; PULSE 74; PULSE 78; RESP 18; TEMP 36.8; O2SAT 92
[2024-07-30 03:00] VITALS: BP 93/54; PULSE 78; RESP 18; TEMP 36.6; O2SAT 96
[2024-07-30] MEDS: GUAIF/CODEINE 200/20MG/10 ML SOLUTION PO ×3 (03:52→20:25)
[2024-07-30] MEDS: ALBUTEROL SULFATE 2.5 MG/3 ML VIAL.NEB NEB ×4 (06:07→20:50)
--- NOTE | 2024-07-30 06:09 | PC.NURSE ---
Shift note: Patient is alert and oriented. Continue to intermittent dry barky cough. The cough medicine and the Albuterol neb helped. Patient is independent in room. She denied SOB and chest pain. This morning she said I am beginning to have ribs pain from the forceful cough. Patient had adequate sleep. Vitallystable.
[2024-07-30] MEDS: OMEPRAZOLE 20 MG CAPSULE DR 40 MG PO (06:13)
[2024-07-30 07:08] LABS: Hematocrit 30.2 % (33.0-51.0); Hemoglobin* 9.9 gm/dL (12.0-16.0); Mean Corpuscular HGB Conc 33 gm/dL (32-36); Mean Corpuscular Hemoglobin 30 pg (26-34); Mean Corpuscular Volume 93 fL (80-100); Platelet Count* 207 K/uL (140-440); Red Blood Count 3.26 m/uL (4.00-5.20); White Blood Count* 7.73 K/uL (4.50-11.00)
[2024-07-30 07:19] LABS: Slide Review Reflex No
[2024-07-30 07:37] LABS: Sodium* 137 mmol/L (135-149)
[2024-07-30 07:38] LABS: Anion Gap 6 mEq/L (7-15); Blood Urea Nitrogen* 11 mg/dL (7-30); Calcium* 8.4 mg/dL (8.4-10.6); Carbon Dioxide* 29 mmol/L (20-32); Chloride* 102 mmol/L (96-114); Creatinine* 0.6 mg/dL (0.5-1.5); Est. Creatinine Clearance* 43.18; Estimated Glomerular Filt Rate 98 ml/min; Glucose* 92 mg/dL (60-115); Potassium* 3.9 mmol/L (3.6-5.1)
[2024-07-30 07:52] VITALS: BP 103/61; PULSE 67; RESP 18; TEMP 36.6; O2SAT 95
[2024-07-30] MEDS: AZITHROMYCIN 250 MG TABLET 500 MG PO (09:21)
[2024-07-30] MEDS: DIVALPROEX DELAYED RELEASE 250 MG TABLET 2000 MG PO (09:22)
[2024-07-30] MEDS: METOPROLOL SUCCINATE (XL) 25 MG TAB PO (09:23)
[2024-07-30] MEDS: guaiFENesin 600 MG TAB.ER.12H PO ×2 (09:23→20:25)
[2024-07-30] MEDS: VENLAFAXINE ER 75 MG CAPSULE 300 MG PO (09:23)
[2024-07-30] MEDS: SODIUM CHLORIDE 0.9 % (FLUSH) 10 ML SYRINGE 5 ML IVF ×2 (09:24→20:26)
[2024-07-30] MEDS: cefTRIAXone 1 GM in 0.9 % SODIUM CHLORIDE Mini-bag 100 ML IVPB (09:25)
[2024-07-30 11:00] VITALS: BP 111/63; PULSE 77; RESP 14; TEMP 36.8; O2SAT 93
[2024-07-30] MEDS: predniSONE 20 MG TABLET PO (11:22)
--- NOTE | 2024-07-30 11:49 | P.IMPN_ITS ---
Assessment and Plan Assessment and plan (1) URI (upper respiratory infection): Problem comment: Acutely ill with relatively severe cough for 5 days. No hypoxia. Initial viral screening negative. Chest x-ray with kira-hilar prominence possibly related to viral infection Status: Acute (2) UTI (urinary tract infection): Problem comment: On this admission has abnormal urinalysis without urinary symptoms Started on ceftriaxone and azithromycin as above UC eventually grew out less than 10,000 colony-forming units of mixed Gram- positive maribel Status: Acute (3) Pneumonia: Problem comment: Acutely ill with relatively severe cough for 5 days. No hypoxia. Initial viral screening negative. Chest x-ray with kira-hilar prominence possibly related to viral infection Significant leukocytosis with left shift - trending down, procalcitonin >2, CRP trending up, BC x2 pending - negative to date Continue IV ceftriaxone and PO azithromycin Mucinex, Robitussin/codeine (patient requested) Albuterol nebs q.4 hours while awake Pertussis pending strep pneumo/Legionella negative Status: Acute (4) Steroid long-term use: Problem comment: Historically diagnosed with [place]'s disease which has since been ruled out by [facility]. Normal udocvskcmwpa-reyewovur-bnodbqh axis testing noted. Taper from chronic fludrocortisone began February 2024 - Dr. Tang's note (03/16/24) indicates she should have stopped hydrocortisone by week 3. Pharmacy confirmed with patient after reviewing home med list that she is no longer taking this Will need stress doses for 1 year as needed following taper - initiated on admission, and discontinue this on 07/30/2024 Status: Acute (5) Hypoxia: Status: Acute (6) Weakness: Problem comment: Acute on chronic - 07/30/2024: Physical therapy and occupational therapy consultation Status: Acute (7) Physical deconditioning: Problem comment: Quite sedentary. Prominent fatigue and weakness limiting activity Status: Acute (8) Functional neurological symptom disorder with mixed symptoms: Problem comment: Diplopia, falls, vertigo, blurry vision, tremor, numbness, tingling, speech difficulties. See Psychiatry records from [place], She sees Dr. Vasquez, neuropsychology, at [place]. She also sees Dr. Kory Mccloud, Neurology at [facility] [place], and Dr Inés MD psychiatry Status: Acute (9) Posttraumatic stress disorder: Problem comment: Sees Dr Inés MD, all psychiatric medications handled by him, tel [phone] Status: Chronic (10) Generalized anxiety disorder: Problem comment: See Psychiatry records from [place] Status: Chronic (11) Obstructive sleep apnea treated with continuous positive airway pressure (C PAP): Problem comment: Continue CPAP Status: Chronic (12) Asthma, moderate persistent, poorly-controlled: Problem comment: - Sees sharepoint net developer Dr Santoyo every 3 months - 07/30/2024: Initiate a 5 day course of prednisone 20 mg once daily, continue with albuterol nebulization and other treatments Status: Chronic Plan 1. Reviewed impression, plan, recommendations with patient 2. Answered her questions are satisfaction 3. Patient agreeable to above stated plans and recommendations Total Time Spent Total Time Spent: 50 minutes Subjective Date Seen: 07/30/24 Interval history: Admission history of present illness, 07/28/2024: ?69 year old female with multiple chronic disabilities noted below who presents emergency room with profound weakness and coughing for about 5 days. Patient is exposed to her daughter who has had a similar respiratory illness. About 5 days ago she became ill with coughing. Coughing was occasionally so severe that it led to vomiting. She reports subjective fever and chills. In the last couple days she has been so weak that she is having a hard time walking. She has been able to drink fluids but is not eating much solid food. She has had no blood in her emesis. She has chronic diarrhea which persists. She had previously been diagnosed with adrenal insufficiency. July of 2022 she was here with a right hip fracture with ORIF. Postoperatively she had profound hypotension requiring pressor support. She had a hemoglobin drop from 12 preoperatively to 9.7. There was no other definite cause for her hypotension. She was tested for adrenal insufficiency and had low intermediate results raising concerns for adrenal insufficiency. She subsequently has been treated for chronic with adrenal insufficiency with prednisone then hydrocortisone. Also has been treated with fludrocortisone and midodrine. She did not get relief of her chronic fatigue, dizziness, diarrhea with steroid treatment. She has been followed by [facility] and was seen there most recently February of 2024. Notes from that visit indicate that subsequent testing has not confirmed any problems with adrenal insufficiency or problems with the hypothalamic pituitary adrenal axis. She was advised to taper off hydrocortisone over 3 weeks. Uncertain if she has stopped her hydrocortisone. She was also advised to continue to use stress dose steroids over the next year which she also has not done. The conclusion was that she had some adrenal insufficiency which was self-limited and has resolved but she should continue to do stress dose steroids for your. She was seen by her primary care provider 3 weeks ago and diagnosis of possible POTS (postural tachycardia syndrome) was made. She continues to have ongoing fatigue, malaise, dizziness, episodes of possible syncope, chronic diarrhea. Chronic medical problems: Chronic fatigue, malaise, weakness, low blood pressure/presyncope or syncope. Other diagnosis include generalized anxiety, depression, dissociate episodes, borderline personality disorder, PTSD, functional neurologic symptom disorder with mixed symptoms (formerly conversion disorder), vocal cord dysfunction, airway hyper reactivity..? 07/29/2024: ?Patient is seen sitting up in bed this morning. Reports no change in how she is feeling. Continues with a dry hacky cough. Complains of chest congestion. Has a mild global headache secondary to coughing. Tolerating orals without nausea vomiting. Remains afebrile. ?WBC downtrending. CRP is up. Chronic low blood pressures.? 07/30/2024: She tells me she has no recollection of how she arrived at the hospital, does not feel any worse or better than when she felt prior to coming to the hospital, continues to have coughing day and night which is nonproductive and sounds like the barking seal. Notes generalized weakness which isn't necessarily new and is chronic. Tells me how she spends much of her day in bed or sitting and hardly moves at all when at home, rests a lot. 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 Lives with her daughter who has special needs. She tells me that since she graduated from college in 2021 with 3 different degrees, she has been unable to work due to multiple physical and medical problems. Exam Narrative: Exam Narrative: Examined patient in her hospital room and as she works with physical therapy in the hallway. Continues to have intermittent barking cough. Alert and oriented x4. Oropharynx is benign. Lungs with scattered rhonchi but no rales. Intermittent wheezing and stridor. Chest wall excursions are full. Increased cough paroxysms with deep breathing. Heart tones distant but regular rhythm. Abdomen with active bowel sounds, soft, nontender. No lower extremity edema. Palpable pulses upper and lower extremities. Independent with transfer, station, gait. Moves very slowly and purposefully. Const: Vital Signs, click to edit/add: Vital Signs - 24 hr 07/29/24 15:45 07/29/24 15:45 07/29/24 19:00 Temperature 98 F 98.5 F Pulse Rate [Left P ulse Oximeter] 88 88 86 Respiratory Rate 18 18 18 Blood Pressure [Ri ght Arm] 117/73 112/69 Pulse Oximetry 93 91 Oxygen Delivery Me thod Room Air Room Air Oxygen Flow Rate 0 0 07/29/24 23:00 07/29/24 23:00 07/30/24 03:00 Temperature 98.2 F 97.8 F Pulse Rate [Left P ulse Oximeter] 78 74 78 Respiratory Rate 18 18 18 Blood Pressure [Ri ght Arm] 95/59 L 93/54 L Pulse Oximetry 92 96 Oxygen Delivery Me thod Room Air Room Air Oxygen Flow Rate 0 07/30/24 07:52 Temperature 97.8 F Pulse Rate [Left P ulse Oximeter] 67 Respiratory Rate 18 Blood Pressure [Ri ght Arm] 103/61 Pulse Oximetry 95 Oxygen Delivery Me thod Room Air Oxygen Flow Rate Labs Labs: Laboratory Results - last 24 hr 07/30/24 06:20 WBC 7.73 RBC 3.26 L Hgb 9.9 L Hct 30.2 L MCV 93 MCH 30 MCHC 33 Plt Count 207 Sodium 137 Potassium 3.9 Chloride 102 Carbon Dioxide 29 Anion Gap 6 L BUN 11 Creatinine 0.6 Estimated Creat Clear 43.18 Estimated GFR 98 Glucose 92 Calcium 8.4 C-Reactive Protein 5.0 H Imaging Chest x-ray: Attestation: I have reviewed the pertinent imaging results. Radiologist's impression: FINDINGS: Cardiovascular and mediastinum: Cardiomediastinal silhouette is stable. Lungs and pleural spaces: Mild perihilar prominence. No focal consolidation. Elevation of the right hemidiaphragm is similar compared to prior. No pneumothorax or pleural effusion. Bones and soft tissues: Loop recorder in the left chest wall. IMPRESSION: New mild perihilar prominence can be seen with mild pulmonary edema or viral infection.
--- NOTE | 2024-07-30 12:02 | PC.SOCIAL ---
Addendum entered by FATUMA Elias 07/30/24 15:06: Discharge planning: Pt is being recommended for home care OT. Therefore, the provider will need to write in the home care orders...okay for delay of start for OT since there is a waitlist for OT with [facility] right now. travelers' aid worker relayed all this information and the below information to the charge nurse on duty who will also pass along the information at shift change report time. Social work to follow-up as needed. Addendum entered by FATUMA Elias 07/30/24 12:19: Discharge planning: If pt discharges over the weekend Arielle with [facility] will need to be notified via her cell phone at #[phone]. New home care orders and discharge summary will need to be sent to Arielle via secure email at [email or web address]. Social work to follow-up as needed. Original Note: Discharge planning: Pt will not be discharging today. Pt is being recommended for home care PT in addition to her already in place services with [facility] of assisted for medication set-up and monitoring and ANIMAL SERVICES OFFICER. travelers' aid worker spoke to Arielle at [facility] #[phone], who shared that they can add PT for the pt, but if she needs OT they will need an okay for delay of start order since there is a waitlist for OT, currently(even for current clients). travelers' aid worker met with the pt and explained all of this information. Pt states that she lives with her daughter, Amy, who is out of town until Friday night(07/31/24). Pt stated that historically when she is in the hospital she is sent to a shelter for rehab at discharge because her daughter cannot take care of her. Pt states that her daughter has alcohol syndrome. travelers' aid worker explained to the pt that she is only being recommended home care PT right now and not assisted level rehab. Pt stated that she understood the difference. Social work to follow-up as needed.
[2024-07-30 15:00] VITALS: BP 121/80; PULSE 79; RESP 20; TEMP 36.6; O2SAT 93
--- NOTE | 2024-07-30 18:25 | PC.NURSE ---
End of Shift: Pt is A/Ox4 and cooperative with cares although appears anxious at times. SBA/Ax1 with Gait Belt and Walker. Walked 3x in the manzo, progressively longer distances. Reports feeling tired after walks. Tolerated sitting up in chair for supper. Cough is persistent though intermittent. Gave pt educational materials on POTS diagnosis and treatment. No reports of pain, VSS on RA. Call light within reach, calls appropriately. -Errol Mojica, Student Nurse
[2024-07-30 20:00] VITALS: BP 135/80; PULSE 81; RESP 20; TEMP 36.5; O2SAT 96
[2024-07-30] MEDS: MONTELUKAST 10 MG TABLET PO (20:25)
[2024-07-30] MEDS: FAMOTIDINE 20 MG TABLET 40 MG PO (20:25)
[2024-07-30] MEDS: TRAZODONE HCL 50 MG TABLET 75 MG PO (20:25)
[2024-07-30] MEDS: MELATONIN 3 MG TABLET PO (20:26)
[2024-07-31] MEDS: ALBUTEROL SULFATE 2.5 MG/3 ML VIAL.NEB NEB ×4 (00:59→13:20)
[2024-07-31 01:00] VITALS: BP 97/57; RESP 20; TEMP 36.3; O2SAT 95
[2024-07-31] MEDS: GUAIF/CODEINE 200/20MG/10 ML SOLUTION PO ×2 (01:01→12:02)
[2024-07-31 03:00] VITALS: RESP 20
[2024-07-31] MEDS: OMEPRAZOLE 20 MG CAPSULE DR 40 MG PO (06:18)
[2024-07-31 06:33] LABS: Hematocrit 31.8 % (33.0-51.0); Hemoglobin* 10.3 gm/dL (12.0-16.0); Mean Corpuscular HGB Conc 32 gm/dL (32-36); Mean Corpuscular Hemoglobin 31 pg (26-34); Mean Corpuscular Volume 94 fL (80-100); Platelet Count* 248 K/uL (140-440); Red Blood Count 3.38 m/uL (4.00-5.20); White Blood Count* 8.44 K/uL (4.50-11.00)
--- NOTE | 2024-07-31 06:44 | PC.NURSE ---
19-07: pleasant and cooperative. Occasional dry barking cough, encouraging deep breathing exercises. Hot tea and honey given x 3 to soothe pain from coughing and increase PO intake.
[2024-07-31 06:46] LABS: Slide Review Reflex No
[2024-07-31 06:47] LABS: Chloride* 101 mmol/L (96-114)
[2024-07-31 06:48] LABS: Potassium* 3.8 mmol/L (3.6-5.1); Sodium* 136 mmol/L (135-149)
[2024-07-31 06:50] LABS: Blood Urea Nitrogen* 10 mg/dL (7-30); Creatinine* 0.7 mg/dL (0.5-1.5); Est. Creatinine Clearance* 43.18; Estimated Glomerular Filt Rate 95 ml/min
[2024-07-31 06:51] LABS: Anion Gap 5 mEq/L (7-15); Calcium* 8.8 mg/dL (8.4-10.6); Carbon Dioxide* 30 mmol/L (20-32); Glucose* 95 mg/dL (60-115)
[2024-07-31 09:02] VITALS: BP 126/96; PULSE 67; RESP 18; TEMP 36.6; O2SAT 93
[2024-07-31] MEDS: DIVALPROEX DELAYED RELEASE 250 MG TABLET 2000 MG PO (09:04)
[2024-07-31] MEDS: VENLAFAXINE ER 75 MG CAPSULE 300 MG PO (09:04)
[2024-07-31] MEDS: guaiFENesin 600 MG TAB.ER.12H PO (09:05)
[2024-07-31] MEDS: predniSONE 20 MG TABLET PO (09:05)
[2024-07-31] MEDS: AZITHROMYCIN 250 MG TABLET 500 MG PO (09:05)
[2024-07-31] MEDS: cefTRIAXone 1 GM in 0.9 % SODIUM CHLORIDE Mini-bag 100 ML IVPB (09:05)
[2024-07-31] MEDS: METOPROLOL SUCCINATE (XL) 25 MG TAB PO (09:05)
[2024-07-31] MEDS: SODIUM CHLORIDE 0.9 % (FLUSH) 10 ML SYRINGE 5 ML IVF (09:14)
--- NOTE | 2024-07-31 14:07 | PC.NURSE ---
Discharge note: The patient is in decent condition upom discharge, all questions and follow up was reviewed with the patient, was wheeled down to the ER and is awaiting a taxi ride home with her daughter. All belongings were sent home with the patient. Lynette LENTZ BSN
--- NOTE | 2024-07-31 16:04 | P.DS_ITS ---
DS: Providers Provider Date Seen: 07/31/24 Date of admission: 07/29/24 10:07 Primary care physician: Angi Estevez DO Admitting Clinician: Jessica Torres MD Consults: 07/30/24 09:10 Consult to Occupational Therapy [CONS] Routine Comment: Reason(s) for OT Consult:: Evaluate and Treat Any Restrictions?:: No Restrictions Comment: POTS Consult to Physical Therapy [CONS] Routine Comment: Reason(s) for PT Consult:: Evaluate and Treat Any Restrictions?:: No Restrictions Comment: POTS Attending Physician on discharge: Gualberto Sanchez MD Date of Discharge: 07/31/24 DS: Diagnosis Discharge Diagnosis (1) URI (upper respiratory infection): Status: Acute Problem details: Acutely ill with relatively severe cough for 5 days. No hypoxia. Initial viral screening negative. Chest x-ray with kira-hilar prominence possibly related to viral infection (2) UTI (urinary tract infection): Status: Acute Problem details: On this admission has abnormal urinalysis without urinary symptoms Started on ceftriaxone and azithromycin as above UC eventually grew out less than 10,000 colony-forming units of mixed Gram- positive maribel (3) Pneumonia: Status: Acute Problem details: Acutely ill with relatively severe cough for 5 days. No hypoxia. Initial viral screening negative. Chest x-ray with kira-hilar prominence possibly related to viral infection Significant leukocytosis with left shift - trending down, procalcitonin >2, CRP trending up, BC x2 pending - negative to date Continue IV ceftriaxone and PO azithromycin Mucinex, Robitussin/codeine (patient requested) Albuterol nebs q.4 hours while awake Pertussis pending strep pneumo/Legionella negative (4) Steroid long-term use: Status: Acute Problem details: Historically diagnosed with [place]'s disease which has since been ruled out by [facility]. Normal eqzqeyqekdnd-zlwzhcewy-ncxclcv axis testing noted. Taper from chronic fludrocortisone began February 2024 - Dr. Tang's note (03/16/24) indicates she should have stopped hydrocortisone by week 3. Pharmacy confirmed with patient after reviewing home med list that she is no longer taking this Will need stress doses for 1 year as needed following taper - initiated on ad mission, and discontinue this on 07/30/2024 (5) Hypoxia: Status: Acute (6) Weakness: Status: Acute Problem details: Acute on chronic - 07/30/2024: Physical therapy and occupational therapy consultation (7) Physical deconditioning: Status: Acute Problem details: Quite sedentary. Prominent fatigue and weakness limiting activity (8) Functional neurological symptom disorder with mixed symptoms: Status: Acute Problem details: Diplopia, falls, vertigo, blurry vision, tremor, numbness, tingling, speech difficulties. See Psychiatry records from [facility], She sees Dr. Vasquez, neuropsychology, at [facility]. She also sees Dr. Kory Mccloud, Neurology at [facility], and Dr Inés MD psychiatry (9) Posttraumatic stress disorder: Status: Chronic Problem details: Sees Dr Inés MD, all psychiatric medications handled by him, tel [phone] (10) Generalized anxiety disorder: Status: Chronic Problem details: See Psychiatry records from [facility] (11) Obstructive sleep apnea treated with continuous positive airway pressure (CPAP): Status: Chronic Problem details: Continue CPAP (12) Asthma, moderate persistent, poorly-controlled: Status: Chronic Problem details: - Sees caster operator Dr Santoyo every 3 months - 07/30/2024: Initiate a 5 day course of prednisone 20 mg once daily, continue wit h albuterol nebulization and other treatments DS: Summary Hospital Course Hospital Course: Admission history of present illness, 07/28/2024: ?69 year old female with multiple chronic disabilities noted below who presents emergency room with profound weakness and coughing for about 5 days. Patient is exposed to her daughter who has had a similar respiratory illness. About 5 days ago she became ill with coughing. Coughing was occasionally so severe that it led to vomiting. She reports subjective fever and chills. In the last cou ple days she has been so weak that she is having a hard time walking. She has been able to drink fluids but is not eating much solid food. She has had no blood in her emesis. She has chronic diarrhea which persists. She had previously been diagnosed with adrenal insufficiency. July of 2022 she was here with a right hip fracture with ORIF. Postoperatively she had profound hypotension requiring pressor support. She had a hemoglobin drop from 12 preoperatively to 9.7. There was no other definite cause for her hypotension. She was tested for adrenal insufficiency and had low intermediate results raising concerns for adrenal insufficiency. She subsequently has been treated for chronic with adrenal insufficiency with prednisone then hydrocortisone. Also has been treated with fludrocortisone and midodrine. She did not get relief of her chronic fatigue, dizziness, diarrhea with steroid treatment. She has been followed by [facility] and was seen there most recently February of 2024. Notes from that visit indicate that subsequent testing has not confirmed any problems with adrenal insufficiency or problems with the hypothalamic pituitary adrenal axis. She was advised to taper off hydrocortisone over 3 weeks. Uncertain if she has stopped her hydrocortisone. She was also advised to continue to use stress dose steroids over the next year which she also has not done. The conclusion was that she had some adrenal insufficiency which was self-limited and has resolved but she should continue to do stress dose steroids for your. She was seen by her primary care provider 3 weeks ago and diagnosis of possible POTS (postural tachycardia syndrome) was made. She continues to have ongoing fatigue, malaise, dizziness, episodes of possible syncope, chronic diarrhea. Chronic medical problems: Chronic fatigue, malaise, weakness, low blood pressure/presyncope or syncope. Other diagnosis include generalized anxiety, depression, dissociate episodes, borderline personality disorder, PTSD, functional neurologic symptom disorder with mixed symptoms (formerly conversion disorder), vocal cord dysfunction, airway hyper reactivity..? 07/29/2024: ?Patient is seen sitting up in bed this morning. Reports no change in how she is feeling. Continues with a dry hacky cough. Complains of chest congestion. Has a mild global headache secondary to coughing. Tolerating orals without nausea vomiting. Remains afebrile. ?WBC downtrending. CRP is up. Chronic low blood pressures.? 07/30/2024: She tells me she has no recollection of how she arrived at the hospital, does not feel any worse or better than when she felt prior to coming to the hospital, continues to have coughing day and night which is nonproductive and sounds like the barking seal. Notes generalized weakness which isn't necessarily new and is chronic. Tells me how she spends much of her day in bed or sitting and hardly moves at all when at home, rests a lot. She receives various services in her home to help her with secured entrance monitor and for self- care. Lives with her daughter who has special needs. She tells me that since she graduated from college in 2021 with 3 different degrees, she has been unable to work due to multiple physical and medical problems. 07/31/2024: Still coughing but feels a little stronger and ready to go home. Status at Discharge Functional status at discharge: uses cane/walker Overall status at discharge: patient is progressing back to baseline Time Spent with Patient Time attestation: Total time spent providing and/or coordinating discharge services: Time spent: Less than 30 minutes Exam Narrative: Exam Narrative: Examined patient in her hospital room and as she works with physical therapy in the hallway. Continues to have intermittent barking cough. Alert and oriented x4. Oropharynx is benign. Lungs with scattered rhonchi but no rales. Intermittent wheezing and stridor. Chest wall excursions are full. Increased cough paroxysms with deep breathing. Heart tones distant but regular rhythm. Abdomen with active bowel sounds, soft, nontender. No lower extremity edema. Palpable pulses upper and lower extremities. Independent with transfer, station, gait. Moves very slowly and purposefully. Const: Vital Signs, click to edit/add: Vital Signs - 24 hr 07/30/24 20:00 07/31/24 01:00 07/31/24 01:00 Temperature 97.7 F 97.4 F L Pulse Rate [Left P ulse Oximeter] 81 Respiratory Rate 20 20 20 Blood Pressure [Ri ght Arm] 135/80 97/57 L Pulse Oximetry 96 95 Oxygen Delivery Me thod Room Air Room Air Oxygen Flow Rate 0 0 07/31/24 03:00 07/31/24 09:02 Temperature 97.9 F Pulse Rate [Left P ulse Oximeter] 67 Respiratory Rate 20 18 Blood Pressure [Ri ght Arm] 126/96 H Pulse Oximetry 93 Oxygen Delivery Me thod Room Air Oxygen Flow Rate DS: Data Data Completed and Pending Completed studies during hospitalization: Procedures Reposition Right Upper Femur with Internal Fixation Device, Open Approach (08/09/22) Labs on day of discharge: Labs from last 24 hours 07/31/24 06:18 WBC 8.44 RBC 3.38 L Hgb 10.3 L Hct 31.8 L MCV 94 MCH 31 MCHC 32 Plt Count 248 Sodium 136 Potassium 3.8 Chloride 101 Carbon Dioxide 30 Anion Gap 5 L BUN 10 Creatinine 0.7 Estimated Creat Clear 43.18 Estimated GFR 95 Glucose 95 Calcium 8.8 Preliminary micro results at discharge 07/28/24 12:03 Blood Culture - Preliminary Blood NO GROWTH AFTER 72 HOURS 07/28/24 12:03 Blood Culture - Preliminary Blood NO GROWTH AFTER 72 HOURS Imaging Chest x-ray: Attestation: I have reviewed the pertinent imaging results. Radiologist's impression: IMPRESSION: New mild perihilar prominence can be seen with mild pulmonary edema or viral infection. Discharge Plan Discharge Disposition: Home, Self-Care Date of Admission: 07/29/24 10:07 Attending Provider on Discharge: Gualberto Sanchez Primary Care Provider: Angi Estevez Condition: Improved Anticipated Discharge Date/Time: 07/31/24 14:00 Discharge Medications: New venlafaxine 75 mg Capsule,Extended Release 24hr 300 mg PO DAILY 30 Days Qty: 60 0RF azithromycin 250 mg Tablet 250 mg PO DAILY 1 Days Qty: 1 0RF Taper: Z-STEVEN 250 mg Q24H for 1 Day and 0 Hour prednisone 20 mg Tablet 20 mg PO DAILYWM 3 Days Qty: 3 0RF codeine-guaifenesin 10-100 mg/5 mL Liquid 10 ml PO QID PRN7 Days Qty: 250 0RF guaifenesin [Mucinex] 600 mg Tablet Extended Release 12hr 600 mg PO BID 14 Days Qty: 28 0RF Continued montelukast 10 mg tablet 10 mg PO HS loperamide 2 mg capsule 4 mg PO QID PRN divalproex 500 mg tablet,delayed release (DR/EC) 2,000 mg PO DAILY doxepin 10 mg capsule 10 mg PO DAILY dextroamphetamine-amphetamine 10 mg capsule,extended release 24hr 1 cap PO DAILY famotidine 40 mg tablet 40 mg PO HS fluticasone propion-salmeterol 500-50 mcg/dose blister with device 1 inh inhalation BID omeprazole 40 mg capsule,delayed release(DR/EC) 40 mg PO DAILY calcium carbonate-vitamin D3 600 mg-10 mcg (400 unit) tablet 1 tab PO BID metoprolol succinate 25 mg tablet extended release 24 hr 25 mg PO DAILY trazodone 150 mg tablet 75 mg PO HS dextroamphetamine-amphetamine 10 mg tablet 1 tab PO DAILY guanfacine 1 mg tablet 1 mg PO QPM albuterol sulfate 90 mcg/actuation HFA aerosol inhaler 2 puff INHALATION Q4H PRN lorazepam 0.5 mg tablet 0.5 mg PO DAILY PRN cevimeline 30 mg capsule 1 cap PO TID dicyclomine 10 mg capsule 10 mg PO Q6H PRN (Reason: cramps) Discontinued venlafaxine 75 mg capsule,extended release 24hr 225 mg PO DAILY Discharge Orders: Discharge Order (Routine); Ordered 07/31/24 Ordered By: Gualberto Sanchez Patient Education: Prednisone (By mouth), Guaifenesin (By mouth), Azithromycin (By mouth), Venlafaxine (By mouth), Asthma (DC), How to Use a Metered-Dose Inhaler and a Spacer (DC) Additional Instructions: 1. Referral to home care with longterm for med setup and monitoring, Physical Therapy and occupational Therapy assessment and treatment, Home-health aid. 2. Follow-up with primary personal carer in 5-10 days. Activity Level: Activity as Tolerated and Other Activity Detail: All activities are to be undertaken safely. Discharge Diet: Heart Healthy (2 gm sodium, low fat) Follow Up Appointments: Angi Estevez DO [Primary Care Provider] - 08/13/24 11:00 am ([facility] for follow-up.) Forms: [employer] Info Instructions
[2024-08-01 00:56] LABS: B. pertussis/parapertus Source Not Provided; Bordetella parapertussis PCR Not Detected; Bordetella pertussis by PCR Not Detected
== END 2024-07-31 14:00 | disposition home or self-care (01) | DRG 194 ==
LOC: ED 14:20 → MEDSURG 14:51
PROVIDERS: Physician Assistant; Admitting Provider Family Medicine; Emergency Provider Family Medicine; PCP Family Medicine; Visit Provider Family Medicine
DX: J18.9 Pneumonia, unspecified organism (principal); E27.40 Unspecified adrenocortical insufficiency; N39.0 Urinary tract infection, site not specified; R09.02 Hypoxemia; G90.A Postural orthostatic tachycardia syndrome [POTS]; J45.40 Moderate persistent asthma, uncomplicated; G47.33 Obstructive sleep apnea (adult) (pediatric); Z99.89 Dependence on other enabling machines and devices; Z79.52 Long term (current) use of systemic steroids; R53.82 Chronic fatigue, unspecified; F44.7 Conversion disorder with mixed symptom presentation; F41.1 Generalized anxiety disorder; F60.3 Borderline personality disorder; F43.12 Post-traumatic stress disorder, chronic; F32.A Depression, unspecified; K58.0 Irritable bowel syndrome with diarrhea
CPT/HCPCS: 36415; 51798; 71046; 80048; 82803; 83605; 84145; 84443; 84484; 85025; 85027; 85379; 86140; 87040; 87086; 87449; 87631; 87899; 94640; 94761; 97116; 97162; 97165; 99284; 99285; A9270; G0378; J0696; J7030; J7050; J7512

== ENCOUNTER 2024-09-01 09:11 | Outpatient (CLI) | payer OTHER, SELFPAY | END 2024-09-01 09:12 | disposition home or self-care (01) | LOC: AMB 09-02 12:19 | PROVIDERS: PCP Family Medicine; Visit Provider Family Medicine | DX: I95.9 Hypotension, unspecified (principal); R42 Dizziness and giddiness | CPT/HCPCS: A0425; A0427 ==

== ENCOUNTER 2024-09-01 09:41 | Emergency (ER) | payer OTHER, SELFPAY ==
[2024-09-01] VITALS (25 sets, daily range): BP systolic 88–120; BP diastolic 38–76; PULSE 60–77; RESP 20; TEMP 36.7; O2SAT 88–95
--- OUTSIDE RECORDS SUMMARY | 2024-09-01 09:44 | XMS_ITS | Encounter Summary ---
Author Organization [facility] Address [address] [place] [address] Care Team Providers Care Gutter Installer Name Role Phone Gaby Fleming MD Primary Care Provider [phone] Encounter Details Date Type Department Care Team [...] on filedocumented in this encounter Care Teams Gutter Installer Relationship Specialty Start Date End Date Gaby Fleming MD [address] [place] [address] PCP - General 01/29/06 documented as of this encounter
--- OUTSIDE RECORDS SUMMARY | 2024-09-01 09:44 | XMS_ITS | Encounter Summary ---
Author Organization [facility] Address [address] [place] [address] Care Team Providers Care Preparation Plant Supervisor Name Role Phone Gaby Fleming MD Primary Care Provider [phone] Encounter Details Date Type Department Care Team (Late st Contact Info) Description 05/13/2014 Emergency Room External to [facility], Provider EAR PAIN Social History [...] on filedocumented in this encounter Care Teams Preparation Plant Supervisor Relationship Specialty Start Date End Date Gaby Fleming MD [address] [place] [address] PCP - General 01/29/06 documented as of this encounter
--- OUTSIDE RECORDS SUMMARY | 2024-09-01 09:44 | XMS_ITS | Encounter Summary ---
Author Organization [facility] Address [address] [place] [address] Care Team Providers Care Scientific Programmer Analyst Name Role Phone None Reported, Pcp Primary Care Provider Unavail able Reason for Referral * Outpatient (Routine) - Closed Specialty Diagnoses / Procedures Referred By Horacio marino Referred To Contact Neurology Diagnoses Demyelinating Disease Central Nervous System (HCC) Gagan Vera M.D. Phone: tel: fax: [facility] Referral ID Status Reason Start Date Expiration Date Visits Re quested Visits Authorized [id number] Closed 07/30/2018 07/30/2019 1 1 Encounter Details Date Type Department Care Team (Latest Contact Info) Description 07/30/2018 [facility] [address] [place] [address] Gagan Vera M.D. [address] [place] [address] Demyelinating Disease Central Nervous System (HCC) (Primary Dx) Social History Tobacco Use Types Packs/Day Years Used Date Smoking Tobacco: Never Assessed Comments Unknown Sex and Gender Information Value Date Recorded Sex Assigned at Female 01/02/2021 11:08 AM CDT Legal Sex Female 10:48 AM CDT Gender Identity Female 03/11/2019 12:39 PM HEALTH ASSESSMENT AND TREATMENT TEACHER Sexual Orientation Straight 03/11/2019 12 :39 PM HEALTH ASSESSMENT AND TREATMENT TEACHER documented as of this encounter Plan of [...] Pending 04/12/2021 04/12/2021 04/13/2021 6 :18 PM HEALTH ASSESSMENT AND TREATMENT TEACHER documented as of this encounter Care Teams Scientific Programmer Analyst Relationship Specialty Start Date End Date None Reported, Pcp PCP - General Family Medicine 01/26/24 documented as of this encounter
--- OUTSIDE RECORDS SUMMARY | 2024-09-01 09:44 | XMS_ITS | Encounter Summary ---
Author Organization [facility] Address [address] [place] [address] Care Team Providers Care Sugarcane Research Technician Name Role Phone Gaby Fleming MD Primary Care Provider [phone] Encounter Details Date Type Department Care Team [...] on filedocumented in this encounter Care Teams Sugarcane Research Technician Relationship Specialty Start Date End Date Gaby Fleming MD [address] [place] [address] PCP - General 01/29/06 documented as of this encounter
--- OUTSIDE RECORDS SUMMARY | 2024-09-01 09:44 | XMS_ITS | Encounter Summary ---
Author Organization [facility] Address [address] [place] [address] Care Team Providers Care Adult Nurse Practitioner Name Role Phone Gaby Fleming MD Primary Care Provider [phone] Encounter Details Date Type Department Care Team (Latest Contact Info) Description 05/25/1998 Orders Only Karan Garcia MD [address] [place] [address] Social History Tobacco Use Types Packs/Day Years [...] filedocumented in this encounter Care Teams Adult Nurse Practitioner Relationship Specialty Start Date End Date Gaby Fleming MD [address] [place] [address] PCP - General 01/29/06 documented as of this encounter
--- OUTSIDE RECORDS SUMMARY | 2024-09-01 09:44 | XMS_ITS | Encounter Summary ---
Author Organization Replaced by [facility] Address [address] [place] [address] Care Team Providers Care Public Events Facilities Rental Manager Name Role Phone Gaby Fleming MD Primary Care Provider [phone] Encounter Details Date Type Department Care Team (Latest Contact Info) Description 10/17/1996 Orders Only Rosetta Gramajo MD [address] [place] [address] Social History Tobacco Use Types Packs/Day Years [...] filedocumented in this encounter Care Teams Public Events Facilities Rental Manager Relationship Specialty Start Date End Date Gaby Fleming MD [address] [place] [address] PCP - General 01/29/06 documented as of this encounter
--- OUTSIDE RECORDS SUMMARY | 2024-09-01 09:44 | XMS_ITS | Encounter Summary ---
Author Organization [facility] Address [address] [place] [address] Care Team Providers Care Operator Helper Name Role Phone Gaby Fleming MD Primary Care Provider [phone] Encounter Details Date Type Department Care Team (Late st Contact Info) Description 03/11/2014 Correspondence None No Primary/Referring, Phy EQUIPMENT RESERVATIONS SPECIALIST TICKET Social History Tobacco Use Types Packs/Day [...] filedocumented in this encounter Care Teams Operator Helper Relationship Specialty Start Date End Date Gaby Fleming MD [address] [place] [address] PCP - General 01/29/06 documented as of this encounter
--- OUTSIDE RECORDS SUMMARY | 2024-09-01 09:44 | XMS_ITS | Encounter Summary ---
Author Organization [facility] Address [address] [place] [address] Care Team Providers Care Machine Made Shoe Unit Worker Name Role Phone Gaby Fleming MD Primary Care Provider [phone] Encounter Details Date Type Department Care Team (Latest Contact Info) Description 01/05/1998 Orders Only Arielle Caraballo, DO [address] [place] [address] Social History Tobacco Use Types Packs/Day Years [...] filedocumented in this encounter Care Teams Machine Made Shoe Unit Worker Relationship Specialty Start Date End Date Gaby Fleming MD [address] [place] [address] PCP - General 01/29/06 documented as of this encounter
--- OUTSIDE RECORDS SUMMARY | 2024-09-01 09:44 | XMS_ITS | Encounter Summary ---
Author Organization [facility] Address [address] [place] [address] Care Team Providers Care Sports Physiotherapist Name Role Phone Gaby Fleming MD Primary Care Provider [phone] Encounter Details Date Type Department Care Team (Latest Contact Info) Description 06/09/2014 Consent for Procedure/Treatme nt [facility] [address] [place] [address] METHACHOLINE CHALLENGE TEST Social History Tobacco Use [...] on filedocumented in this encounter Care Teams Sports Physiotherapist Relationship Specialty Start Date End Date Gaby Fleming MD [address] [place] [address] PCP - General 01/29/06 documented as of this encounter
--- OUTSIDE RECORDS SUMMARY | 2024-09-01 09:44 | XMS_ITS | Encounter Summary ---
Author Organization [facility] Address [address] [place] [address] Care Team Providers Care Regrind Mill Operator Name Role Phone Gaby Fleming MD Primary Care Provider [phone] Encounter Details Date Type Department Care Team (Late st Contact Info) Description 05/19/2014 Scanned History [facility] [address] [place] [address] Jaycob Ayala MD [facility]-DISCHARGE PAPERWORK Social History [...] on filedocumented in this encounter Care Teams Regrind Mill Operator Relationship Specialty Start Date End Date Gaby Fleming MD [address] [place] [address] PCP - General 01/29/06 documented as of this encounter
--- OUTSIDE RECORDS SUMMARY | 2024-09-01 09:44 | XMS_ITS | Encounter Summary ---
Author Organization [facility] Address [address] [address] Care Team Providers Care Plastic Fixture Builder Name Role Phone Gaby Fleming MD Primary Care Provider [phone] Encounter Details Date Type Department Care Team [...] on filedocumented in this encounter Care Teams Plastic Fixture Builder Relationship Specialty Start Date End Date Gaby Fleming MD [address] [place] [address] PCP - General 01/29/06 documented as of this encounter
--- OUTSIDE RECORDS SUMMARY | 2024-09-01 09:44 | XMS_ITS | Encounter Summary ---
Author Organization [facility] Address [address] [place] [address] Care Team Providers Care Weekend Anchor Name Role Phone Gaby Fleming MD Primary Care Provider [phone] Encounter Details Date Type Department Care Team (Late st Contact Info) Description 02/22/2014 Scanned History External to External, [place] [address] [facility] Social History Tobacco Use Types Packs/Day Years [...] on filedocumented in this encounter Care Teams Weekend Anchor Relationship Specialty Start Date End Date Gaby Fleming MD [address] [place] [address] PCP - General 01/29/06 documented as of this encounter
--- OUTSIDE RECORDS SUMMARY | 2024-09-01 09:44 | XMS_ITS | Encounter Summary ---
Author Organization [facility] Address [address] [place] [address] Care Team Providers Care Scientific Photographer Name Role Phone Gaby Fleming MD Primary Care Provider [phone] Encounter Details Date Type Department Care Team [...] filedocumented in this encounter Care Teams Scientific Photographer Relationship Specialty Start Date End Date Gaby Fleming MD [address] [place] [address] PCP - General 01/29/06 documented as of this encounter
--- OUTSIDE RECORDS SUMMARY | 2024-09-01 09:44 | XMS_ITS | Encounter Summary ---
Author Organization [facility] Address [address] [place] [address] Care Team Providers Care Soaker Name Role Phone Gaby Fleming MD Primary Care Provider [phone] Encounter Details Date Type Department Care Team (Latest Contact Info) Description 06/06/1995 Orders Only [place] [address] Social History Tobacco Use Types Packs/Day Years [...] on filedocumented in this encounter Care Teams Soaker Relationship Specialty Start Date End Date Gaby Fleming MD [address] [place] [address] PCP - General 01/29/06 documented as of this encounter
--- OUTSIDE RECORDS SUMMARY | 2024-09-01 09:45 | XMS_ITS | Clinical Summary ---
Author Organization [facility] Address [address] [place] [address] Care Team Providers Care Sheather Name Role Phone None Reported, Pcp Primary Care Provider Unavail able Source Comments Patient records contain information from all sites at [facility]. For routine questions regarding patient records, call [phone] during business hours, M-F 8:00 AM - 5:00 PM Central Time. Record requests for emergency care only can be directed to [phone] at any time.[facility] Allergies Active [...] bedtime. 05/20/19 21 Active miscellaneous medical supply [facility] CPAP machine for home [...] 75 mg by mouth at bedtime. 12/27/19 Active divalproex (DEPAKOTE SPRINKLES) [address] sprinkle capsule Take 4 capsules by mouth 3 (three) times a day. 05/28/19 24 Active metoprolol succinate (TOPROL-XL) 25 mg 24 hr tablet Take 25 mg by mouth daily. Active venlafaxine XR (EFFEXOR-XR) 150 mg 24 hr capsule Take 150 mg by mouth daily. 07/25/19 24 Active multivit-minerals /folic acid (ADULT MULTIVITAMIN [...] take oral steroids 1 mL 3 03/18/20 Active syringe with needle (Syringe 3cc/25Gx1) 3 mL 25 gauge x 1 syringeIndication s:Other Adrenocortical Insufficiency (HCC) 1 each as directed. For use with steroid injection 2 each 3 03/18/20 24 Active fludrocortisone (FLORINEF) 0.1 mg tablet Take 1 tablet (0.1 mg total) by mouth daily. 90 tablet 3 08/26/19 24 2024 Disconti maribeth(The rapy complete d) Active Problems Problem Noted Date Diagnosed Date [...] Encounters Date Type Department Care Team Description 08/10/2024 Refill Division of Endocrinology in [place], [place] [address] [place] [address] Ronna Tang M.D. Med Refill 07/22/2024 Refill Division of Endocrinology in [place], [place] [address] [place] [address] Ronna Tang M.D. Med Refill from Last [...] Otoniel Montes De Oca Anxiety disorder Sister Delmatheus Depression Sister Warren Alcohol abuse Son 1 que Asthma Son [...] drink = 0.6 oz pur e alcohol) [facility] ZEFRities Answer Date Recorded In the past 12 months has [employer], gas, oil, or water [employer] threatened to shut off services in your [...] week 12/23/2021 How often do you attend [facility] or baptism services? More than 4 times per year 12/23/2021 Do you belong to any clubs o r organizations such as hoahaoism groups, unions, fraternal or athletic groups, or [...] Answer Date Recorded PHQ-2 Score 2 01/21/2024 [facility] - Occupational Stress Questionnaire Answer Date Recorded [...] living situation today? I have a [facility] place to live 03/11/2024 Education Answer Date Recorded What is the highest level of school you have completed or the highest degree you have received? Master's degree (e.g., MA, MS, Tc, MEd, REFERRAL COORDINATOR, ALEKSEY) 09/07/2018 Comments Unknown Sex and Gender Information Value Date Recorded Sex Assigned at Female 01/02/2021 11:08 AM CDT Legal Sex Female 10:48 AM CDT Gender Identity Female 03/11/2019 12:39 PM DIRECTOR OF CONSULTING SERVICES Sexual Orientation Straight 03/11/2019 12 :39 PM DIRECTOR OF CONSULTING SERVICES Last Filed Vital Signs Vital Sign Reading Time Taken Comments Blood Pressure 118/58 03/16/2024 10:38 AM DIRECTOR OF CONSULTING SERVICES Pulse 93 03/16/2024 10:38 AM DIRECTOR OF CONSULTING SERVICES Temperature 36.6 C (97.9 F) 01/08/2021 11:04 AM CDT Respiratory Rate - - Oxygen Saturation - - Inhaled Oxygen Concentration - - Weight 91.7 kg (202 lb 2.6 oz) 03/16/2024 10:38 AM DIRECTOR OF CONSULTING SERVICES Height 160 cm (5' 2.99) 03/16/2024 10:38 AM DIRECTOR OF CONSULTING SERVICES Body Mass Index 35.82 03/16/2024 10:38 AM DIRECTOR OF CONSULTING SERVICES Plan of Treatment Health Maintenance Due Date [...] history exists Fasting Glucose for Diabetes Screening 03/17/2027 03/17/2024, 07/08/2023, 06/24/2023, Additional history exists DTaP,Tdap,and Td Vaccines (10 [...] this topic Medical Devices Implanted Type Area Molding Technician Device Identifier Shelf Expiration Date Model / Serial / Lot Hardware E.G. Pins/Screws/Ld s-03/31/2022 Implanted:03/31 (Quantity not on file) Hardware e.g. pins/screws/ro ds Right: Hip Description:Pins and Screws - Implantable Loop Recorder-2018 Implanted:03/17 (Quantity not on file) Implantable Loop Recorder Left: Chest Med[employer]onic [id number] / [id number] S / Insurance [facility] Care Teams Sheather Relationship Specialty Start Date End Date None Reported, Pcp PCP - General Family Medicine 01/26/24
--- OUTSIDE RECORDS SUMMARY | 2024-09-01 09:45 | XMS_ITS | Encounter Summary ---
Author Organization [facility] Address [address] [place] [address] Care Team Providers Care Pilot Submersible Name Role Phone Gaby Fleming MD Primary Care Provider [phone] Encounter Details Date Type Department Care Team (Late st Contact Info) Description 08/09/2011 Consent for Procedure/Treatme [facility] Department INFORMED CONSENT RECORD Social [...] as of this encounter Progress Notes * [facility], PROVIDER - 08/09/2011 12:00 AM CDT documented in this encounter Plan of Treatment Not on file documented as of this encounter Visit Diagnoses Not on filedocumented in this encounter Care Teams Pilot Submersible Relationship Specialty Start Date End Date Gaby Fleming MD [address] [place] [address] PCP - General 01/29/06 documented as of this encounter
--- OUTSIDE RECORDS SUMMARY | 2024-09-01 09:45 | XMS_ITS | Encounter Summary ---
Author Organization [facility] Address [address] [place] [address] Care Team Providers Care Radio Operator Ground Name Role Phone Gaby Fleming MD Primary Care Provider [phone] Encounter Details Date Type Department Care Team [...] on filedocumented in this encounter Care Teams Radio Operator Ground Relationship Specialty Start Date End Date Gaby Fleming MD [address] [place] [address] PCP - General 01/29/06 documented as of this encounter
--- OUTSIDE RECORDS SUMMARY | 2024-09-01 09:45 | XMS_ITS | Encounter Summary ---
Author Organization [facility] Address [address] [place] [address] Care Team Providers Care Gas Engine Operator Name Role Phone Gaby Fleming MD Primary Care Provider [phone] Encounter Details Date Type Department Care Team (Latest Contact Info) Description 06/30/1997 Orders Only Arielle Caraballo, DO [address] [place] [address] Social History Tobacco Use Types Packs/Day Years [...] on filedocumented in this encounter Care Teams Gas Engine Operator Relationship Specialty Start Date End Date Gaby Fleming MD [address] [place] [address] PCP - General 01/29/06 documented as of this encounter
--- OUTSIDE RECORDS SUMMARY | 2024-09-01 09:45 | XMS_ITS | Encounter Summary ---
Author Organization [facility] Address [address] [place] [address] Care Team Providers Care Campus Coordinator Name Role Phone None Reported, Pcp Primary Care Provider Unavail able Reason for Visit * Reason Comments Med Refill Encounter Details Date Type Department Care Team (Late st Contact Info) Description 08/10/2024 Refill Division of Endocrinology in [place], [place] [address] [place] [phone] Ronna Tang M.D. [address] [place] [address] Med Refill Social History Tobacco Use Types Packs/Day Years Used Date Smoking Tobacco: Never Passive Smoke Exposure: Never Smokeless Tobacco: Never Alcohol Use Standard Drinks/Week Comments Never 0 (1 standard drink = 0.6 oz pur e alcohol) [facility] Utilities Answer Date Recorded In the past 12 months has [facility] [email or web address], gas, oil, or water [employer] threatened to shut off services in your [...] often do you attend chur ch or christian services? More than 4 times per year 12/23/2021 Do you belong to any clubs o r organizations such as episcopalian groups, unions, fraternal or athletic groups, or [...] Answer Date Recorded PHQ-2 Score 2 01/21/2024 [facility] - Occupational Stress Questionnaire [...] your living situation today? I have a [facility] place to live 03/11/2024 Education Answer Date Recorded What is the highest level of school you have completed or the highest degree you have received? Master's degree (e.g., MA, MS, Tc, MEd, TALLOW MAKER, ALEKSEY) 09/07/2018 Comments Unknown Sex and Gender Information Value Date Recorded Sex Assigned at Female 01/02/2021 11:08 AM CDT Legal Sex Female 10:48 AM CDT Gender Identity Female 03/11/2019 12:39 PM SENIOR FINANCIAL Sexual Orientation Straight 03/11/2019 12 :39 PM SENIOR FINANCIAL documented as of this encounter Plan of Treatment Not on file documented as of this encounter Visit Diagnoses Not on filedocumented in this encounter Additional Health Concerns Assessment Noted Time PHQ-9 Depression Total Score: 5 01/12/20 20 1:04 PM CDT documented as of this encounter Care Teams Campus Coordinator Relationship Specialty Start Date End Date None Reported, Pcp PCP - General Family Medicine 01/26/24 documented as of this encounter
--- OUTSIDE RECORDS SUMMARY | 2024-09-01 09:45 | XMS_ITS | Encounter Summary ---
Author Organization [facility] Address [address] [place] [address] Care Team Providers Care Bdr Name Role Phone Gaby Fleming MD Primary Care Provider [phone] Encounter Details Date Type Department Care Team (Latest Contact Info) Description 06/23/1997 Orders Only Terese Panda MD [facility] [place] [address] Social History Tobacco Use Types Packs/Day Years [...] on filedocumented in this encounter Care Teams Bdr Relationship Specialty Start Date End Date Gaby Fleming MD [address] [place] [address] PCP - General 01/29/06 documented as of this encounter
--- OUTSIDE RECORDS SUMMARY | 2024-09-01 09:46 | XMS_ITS | Encounter Summary ---
Author Organization [facility] Address [address] [place] [address] Care Team Providers Care Agricultural Scientist Name Role Phone Gaby Fleming MD Primary Care Provider [phone] Encounter Details Date Type Department Care Team [...] on filedocumented in this encounter Care Teams Agricultural Scientist Relationship Specialty Start Date End Date Gaby Fleming MD [address] [place] [address] PCP - General 01/29/06 documented as of this encounter
--- OUTSIDE RECORDS SUMMARY | 2024-09-01 09:46 | XMS_ITS | Encounter Summary ---
Author Organization [facility] Address [address] [place] [address] Care Team Providers Care Auto Body Builder Apprentice Name Role Phone Gaby Fleming MD Primary Care Provider [phone] Encounter Details Date Type Department Care Team (Late st Contact Info) Description 01/10/2015 Correspondence [facility] Psychiatry [address] [place] [address] Jaycob Ayala MD LETTER Social History Tobacco [...] on filedocumented in this encounter Care Teams Auto Body Builder Apprentice Relationship Specialty Start Date End Date Gaby Fleming MD [address] [place] [address] PCP - General 01/29/06 documented as of this encounter
--- OUTSIDE RECORDS SUMMARY | 2024-09-01 09:46 | XMS_ITS | Clinical Summary ---
Author Organization [facility] Address [address] [place] [address]. [place] [address] Care Team Providers Care Manager Roofing Name Role Phone No Ref-Primary, Physician Primary [...] on file Legal Sex Female 3:05 AM LATHE SANDER Gender Identity Not on file Sexual Orientation Not on file Last Filed Vital Signs Vital Sign Reading Time Taken Comments Blood Pressure 136/55 06/16/2017 12:08 PM CDT Pulse 85 03/16/2016 8:18 PM LATHE SANDER Temperature 36.7 C (98 F) 06/16/2017 12:08 [...] Advance Directives For more information, please contact: [phone] * Full Code (Latest Code Status on File) Date Activated Date Inactivated Comments 06/29/2014 3:33 PM 06/30/2014 12:26 PM * Full Code Date Activated Date Inactivated Comments 10/17/2013 3:44 PM 06/29/2014 3:33 PM * Full Code Date Activated Date Inactivated Comments 10/16/2013 2:27 PM 10/17/2013 3:44 PM Care Teams Manager Roofing Relationship Specialty Start Date End Date No Ref-Primary, Physician PCP - General 06/16/17
--- OUTSIDE RECORDS SUMMARY | 2024-09-01 09:46 | XMS_ITS | Encounter Summary ---
Author Organization [facility] Address [address] [place] [address] Care Team Providers Care Internet Network Specialist Name Role Phone Gaby Fleming MD Primary Care Provider [phone] Encounter Details Date Type Department Care Team [...] on filedocumented in this encounter Care Teams Internet Network Specialist Relationship Specialty Start Date End Date Gaby Fleming MD [address] [place] [address] PCP - General 01/29/06 documented as of this encounter
--- OUTSIDE RECORDS SUMMARY | 2024-09-01 09:46 | XMS_ITS | Encounter Summary ---
Author Organization [facility] Address [address] [place] [address] Care Team Providers Care Glass Cut Off Tender Name Role Phone Gaby Fleming MD Primary Care Provider [phone] Encounter Details Date Type Department Care Team (Late st Contact Info) Description 07/29/2014 Correspondence None No Primary/Referring, Phy EQUIPMENT CERTIFIED DRUG COUNSELOR TICKET Social History Tobacco Use Types Packs/Day [...] on filedocumented in this encounter Care Teams Glass Cut Off Tender Relationship Specialty Start Date End Date Gaby Fleming MD [address] [place] [address] PCP - General 01/29/06 documented as of this encounter
--- OUTSIDE RECORDS SUMMARY | 2024-09-01 09:46 | XMS_ITS | Encounter Summary ---
Author Organization [facility] Address [address] [place] [address] Care Team Providers Care Manufacturing Systems Engineer Name Role Phone None Reported, Pcp Primary Care Provider Unavail able Reason for Visit * Reason Comments Med Refill Encounter Details Date Type Department Care Team (Late st Contact Info) Description 07/22/2024 Refill Division of Endocrinology in [place], [place] [address] [place] [phone] Ronna Tang M.D. [address] [place] [address] Med Refill Social History Tobacco Use Types Packs/Day Years Used Date Smoking Tobacco: Never Passive Smoke Exposure: Never Smokeless Tobacco: Never Alcohol Use Standard Drinks/Week Comments Never 0 (1 standard drink = 0.6 oz pur e alcohol) [facility] Utilities Answer Date Recorded In the past 12 months has [facility] [employer], gas, oil, or water [employer] threatened to shut off services in your [...] often do you attend chur ch or adventism services? More than 4 times per year 12/23/2021 Do you belong to any clubs o r organizations such as buddhism groups, unions, fraternal or athletic groups, or [...] PHQ-2 Score 2 01/21/2024 [facility] - Occupational Stress Questionnaire [...] your living situation today? I have a [facility] place to live 03/11/2024 Education Answer Date Recorded What is the highest level of school you have completed or the highest degree you have received? Master's degree (e.g., MA, MS, Tc, MEd, CLINICAL DERMATOLOGIST, ALEKSEY) 09/07/2018 Comments Unknown Sex and Gender Information Value Date Recorded Sex Assigned at Female 01/02/2021 11:08 AM CDT Legal Sex Female 10:48 AM CDT Gender Identity Female 03/11/2019 12:39 PM VP GLOBAL Sexual Orientation Straight 03/11/2019 12 :39 PM VP GLOBAL documented as of this encounter Plan of Treatment Not on file documented as of this encounter Visit Diagnoses Not on filedocumented in this encounter Additional Health Concerns Assessment Noted Time PHQ-9 Depression Total Score: 5 01/12/20 20 1:04 PM CDT documented as of this encounter Care Teams Manufacturing Systems Engineer Relationship Specialty Start Date End Date None Reported, Pcp PCP - General Family Medicine 01/26/24 documented as of this encounter
--- OUTSIDE RECORDS SUMMARY | 2024-09-01 09:46 | XMS_ITS | Encounter Summary ---
Author Organization [facility] Address [address] [place] [address] Care Team Providers Care Business Database Analyst Name Role Phone Gaby Fleming MD Primary Care Provider [phone] Encounter Details Date Type Department Care Team [...] on filedocumented in this encounter Care Teams Business Database Analyst Relationship Specialty Start Date End Date Gaby Fleming MD [address] [place] [address] PCP - General 01/29/06 documented as of this encounter
--- OUTSIDE RECORDS SUMMARY | 2024-09-01 09:46 | XMS_ITS | Encounter Summary ---
Author Organization [facility] Address [address] [place] [address] Care Team Providers Care Mergers And Acquisitions Consultant Name Role Phone Gaby Fleming MD Primary Care Provider [phone] Encounter Details Date Type Department Care Team [...] on filedocumented in this encounter Care Teams Mergers And Acquisitions Consultant Relationship Specialty Start Date End Date Gaby Fleming MD [address] [place] [address] PCP - General 01/29/06 documented as of this encounter
--- OUTSIDE RECORDS SUMMARY | 2024-09-01 09:46 | XMS_ITS | Encounter Summary ---
Author Organization [facility] Address [address] [place] [address] Care Team Providers Care Logistics System Engineer Name Role Phone Gaby Fleming MD Primary Care Provider [phone] Encounter Details Date Type Department Care Team (Latest Contact Info) Description 07/14/2014 [facility]ent [facility] [address] [place] [address] INFORMED CONSENT URODYNAMIC TESTING Social History Tobacco [...] on filedocumented in this encounter Care Teams Logistics System Engineer Relationship Specialty Start Date End Date Gaby Fleming MD [address] [place] [address] PCP - General 01/29/06 documented as of this encounter
--- OUTSIDE RECORDS SUMMARY | 2024-09-01 09:46 | XMS_ITS | Encounter Summary ---
Author Organization [facility] Address [address] [place] [address] Care Team Providers Care Oceanic Sciences Professor Name Role Phone Gaby Fleming MD Primary Care Provider [phone] Encounter Details Date Type Department Care Team (Late st Contact Info) Description 07/31/2015 Correspondence External to External, [place] [address] LETTER SUCCESSFULL COMPLETED DBT TREATMENT Social History [...] on filedocumented in this encounter Care Teams Oceanic Sciences Professor Relationship Specialty Start Date End Date Gaby Fleming MD [address] [place] [address] PCP - General 01/29/06 documented as of this encounter
--- OUTSIDE RECORDS SUMMARY | 2024-09-01 09:46 | XMS_ITS | Encounter Summary ---
Author Organization [facility] Address [address] [place] [address] Care Team Providers Care Lumber Stacker Name Role Phone Gaby Fleming MD Primary Care Provider [phone] Encounter Details Date Type Department Care Team [...] on filedocumented in this encounter Care Teams Lumber Stacker Relationship Specialty Start Date End Date Gaby Fleming MD [address] [place] [address] PCP - General 01/29/06 documented as of this encounter
--- OUTSIDE RECORDS SUMMARY | 2024-09-01 09:46 | XMS_ITS | Encounter Summary ---
Author Organization [facility] Address [address] [place] [address] Care Team Providers Care Supervisor Forming And Tempering Name Role Phone Gaby Fleming MD Primary Care Provider [phone] Encounter Details Date Type Department Care Team [...] filedocumented in this encounter Care Teams Supervisor Forming And Tempering Relationship Specialty Start Date End Date Gaby Fleming MD [address] [place] [address] PCP - General 01/29/06 documented as of this encounter
--- OUTSIDE RECORDS SUMMARY | 2024-09-01 09:46 | XMS_ITS | Encounter Summary ---
Author Organization [facility] Address [address] [place] [address] Care Team Providers Care Truer Pinion And Wheel Name Role Phone Gaby Fleming MD Primary Care Provider [phone] Encounter Details Date Type Department Care Team [...] on filedocumented in this encounter Care Teams Truer Pinion And Wheel Relationship Specialty Start Date End Date Gaby Fleming MD [address] [place] [address] PCP - General 01/29/06 documented as of this encounter
--- OUTSIDE RECORDS SUMMARY | 2024-09-01 09:46 | XMS_ITS | Encounter Summary ---
[facility] Address [address] [place] [address] Care Team Providers Care Tank Refinisher Name Role Phone Gaby Fleming MD Primary Care Provider [phone] Encounter Details Date Type Department Care Team [...] filedocumented in this encounter Care Teams Tank Refinisher Relationship Specialty Start Date End Date Gaby Fleming MD [address] [place] [address] PCP - General 01/29/06 documented as of this encounter
--- OUTSIDE RECORDS SUMMARY | 2024-09-01 09:46 | XMS_ITS ---
Author Organization [facility] Care [facility] ter Care Team Providers Care Care Navigator Name Role Phone Melissa Chacko Unavailable Unavailable Lucila Herring Unavailable Unavailable Andrey Romano Unavailable Unavailable Allergies and adverse reactions Code CodeSystem Substance Reaction Severity StartDate Concern Status 381729991 SNOMED CT Sulfa Antibiotics Mild 08/14/2022 active sulfa Unknown 08/14/2022 active 7454 RXNORM Nitrofurantoin Unknown 08/14/2022 active IVP Dye Unknown 08/14/2022 active 5973 RXNORM Ioxaglate Unknown 08/14/2022 active Hand Pony Ride Attendant Severe 08/14/2022 active contrast Moderate 08/14/2022 active Care Team Name Role Address Phone Organization Dates Andrey Romano PCP [address], [address], [address], [facility] 08/14/2022 - 09/05/2022 Melissa Chacko [facility], [facility] 08/14/2022 - 09/05/2022 Lucila Herring [facility] [address], [place], [address], [facility] : [facility] 08/14/2022 - 09/05/2022 Immunizations Immunization Status [...] completed tuberculin skin test; unspecified formulation lotNumber: [id number] expiry: 09/05/2024 Mfg: [employer]of[employer] Given 0.1 ml Right Forearm intradermally Step 2 of Multi-step with next step required 98 CVX created date: 08/28/2022 consent date: 08/28/2022 administer ed date: 08/28/2022 Educated by Mary Dennis RN on 08/28/2022 TB 2 Step Mantoux Skin Test completed tuberculin skin test; unspecified formulation lotNumber: [id number] expiry: 09/05/2024 Mfg: [employer]of[employer] Given 0.1 ml Right Forearm intradermally Step 1 of Multi-step with next step required 98 CVX created date: 08/14/2022 consent date: 08/14/2022 administer ed date: 08/14/2022 Educated by Mary Dennis RN on 08/14/2022 Prevnar 13 completed Pneumococcal conjugate vaccine 20-valent (PCV20), polysaccharide [id number] conjugate, adjuvant, preservative free 216 CVX created date: 08/14/2022 administer ed date: 03/08/2022 Pneumovax 23 completed pneumococcal polysaccharide vaccine, 23 valent 33 CVX created date: 08/14/2022 administer ed date: 02/07/2012 Hepatitis A completed hepatitis A and hepatitis B vaccine 104 CVX created date: 08/14/2022 administer ed date: 12/25/2021 Hepatitis A completed hepatitis A and hepatitis B vaccine 104 CVX created date: 08/14/2022 consent date: 08/14/2022 administer ed date: 01/17/2016 Hepatitis A completed hepatitis A and hepatitis B vaccine 104 CVX created date: 08/14/2022 administer ed date: 06/01/2002 zoster live completed zoster vaccine, live 121 CVX created date: 08/14/2022 administer ed date: 09/15/2021 zoster live completed zoster vaccine, live 121 CVX created date: 08/14/2022 administer ed date: 07/04/2021 TDAP completed tetanus toxoid, reduced diphtheria toxoid, and acellular pertussis vaccine, adsorbed 115 CVX created date: 08/14/2022 administer ed date: 12/27/2018 TDAP completed tetanus toxoid, reduced diphtheria toxoid, and acellular pertussis vaccine, adsorbed 115 CVX created date: 08/14/2022 administer ed date: 05/15/2010 Influenza-High Dose completed Influenza, high-dose, split virus, quadrivalent, injectable, preservative free 197 CVX created date: 08/14/2022 administer ed date: 01/18/2022 Td completed tetanus and diphtheria toxoids, adsorbed, preservative free, for adult use, Lf unspecified 196 CVX created date: 08/14/2022 administer ed date: 09/30/2001 Td completed tetanus and diphtheria toxoids, adsorbed, preservative free, for adult use, Lf unspecified 196 CVX created date: 08/14/2022 administer ed date: 03/30/1990 COVID-19 Vaccine dose 1 completed SARS-COV-2 (COVID-19) vaccine, mRNA, spike protein, LNP, preservative free, 30 mcg/0.3mL dose, holli-sucrose formulation Mfg: Pfizer 217 CVX created date: 08/14/2022 administer ed date: 04/18/2020 COVID-19 Vaccine dose 2 completed SARS-COV-2 (COVID-19) vaccine, mRNA, spike protein, LNP, preservative free, 30 mcg/0.3mL dose, holli-sucrose formulation Mfg: Synetiq 217 CVX created date: 08/14/2022 administer ed date: 05/09/2020 COVID-19 Vaccine dose 3 completed unknown vaccine or immune globulin Mfg: Synetiq 999 CVX created date: 08/14/2022 administer ed date: 01/01/2021 COVID-19 Vaccine dose 4 completed SARS-COV-2 (COVID-19) vaccine, mRNA, spike protein, LNP, preservative free, 30 mcg/0.3mL dose 208 CVX created date: 08/14/2022 administer ed date: 09/15/2021 COVID-19 Vaccine dose 5 completed SARS-COV-2 (COVID-19) vaccine, mRNA, spike protein, LNP, preservative free, 30 mcg/0.3mL dose Mfg: Synetiq 208 CVX created date: 08/14/2022 administer ed [...] AGE-RELATED OSTEOPOROSIS WITHOUT CURRENT PATHOLOGICAL FRACTURE 08/14/[address] active 2 ANEMIA, UNSPECIFIED 08/14/[address] active 3 ANXIETY DISORDER, UNSPECIFIED 08/14/[address] active 4 BORDERLINE PERSONALITY DISORDER 08/14/2022200060188715 SNOMED CT active 5 CONVERSION DISORDER WITH MIXED SYMPTOM PRESENTATION 08/14/[address] active 6 DEPENDENCE ON OTHER ENABLING MACHINES AND DEVICES 08/14/[address] active 7 FRACTURE OF UNSPECIFIED PART OF NECK OF RIGHT FEMUR, SUBSEQUENT ENCOUNTER FOR CLOSED FRACTURE WITH ROUTINE HEALING 08/14/[address] active 8 GASTRO-ESOPHAGEAL REFLUX DISEASE WITHOUT ESOPHAGITIS 08/14/[address] active 9 IRRITABLE BOWEL SYNDROME, UNSPECIFIED 08/14/[address] active 10 ASSISTED (CURRENT) USE OF ANTICOAGULANTS 08/14/[address] active 11 MAJOR DEPRESSIVE DISORDER, RECURRENT SEVERE WITHOUT PSYCHOTIC FEATURES 08/14/[address] active 12 NONINFECTIVE GASTROENTERITIS AND COLITIS, UNSPECIFIED 08/14/[address] active 13 OBESITY, UNSPECIFIED 08/14/[address] active 14 OBSTRUCTIVE SLEEP APNEA (ADULT) (PEDIATRIC) 08/14/[address] active 15 ORTHOSTATIC HYPOTENSION 08/14/[address] active 16 PERSONAL HISTORY OF OTHER MENTAL AND BEHAVIORAL DISORDERS 08/14/[address] active 17 POST-TRAUMATIC STRESS DISORDER, UNSPECIFIED 08/14/[address] active 18 UNSPECIFIED ASTHMA, UNCOMPLICATED 08/14/[address] active Reason for Referral No Reasons for Referral Entered Social History Social History Observation Description Start Date End Date Code Code System Current Smoking Status Tobacco smoking consumption unknown 620739276 SNOMED CT Sex Assigned At Female 1955 01565-3 [facility] Gender Identity Vital Signs Code Code System Vitals Name Values and Units Timing Information 80813-1 [facility] Pain Level Value=4.0 09/05/2022 48036-7 [facility] O2 % BldC Oximetry Value=96.0 Units= % 09/04/2022 8310-5 [facility] Body Temperature Value=97.7 Units= F 09/04/2022 9279-1 [facility] Respiratory Rate Value=18.0 Units=/m in 09/04/2022 8462-4 [facility] Blood Pressure-Diastolic Value=65 Un its=mmHg 09/04/2022 8480-6 [facility] Blood Pressure-Systolic Yxoxa=343 Un its=mmHg 09/04/2022 8867-4 [facility] Heart rate Szvvg=112.0 Units=/min 09/04/2022 11280-7 [facility] Weight Bbrxv=189.0 Units=Lbs 07/2022 8302-2 [facility] Height Value=62.0 Units=Inches 08/14/2022
--- OUTSIDE RECORDS SUMMARY | 2024-09-01 09:46 | XMS_ITS | Encounter Summary ---
Author Organization [facility] Address [address] [place] [address] Care Team Providers Care Packaging Machine Operator Name Role Phone Gaby Fleming MD Primary Care Provider [phone] Encounter Details Date Type Department Care Team (Late st Contact Info) Description 12/14/2015 Correspondence External to External, [place] [address] 2015 HEALTH PROVIDER SCREENING FORM Social History [...] on filedocumented in this encounter Care Teams Packaging Machine Operator Relationship Specialty Start Date End Date Gaby Fleming MD [address] [place] [address] PCP - General 01/29/06 documented as of this encounter
--- OUTSIDE RECORDS SUMMARY | 2024-09-01 09:46 | XMS_ITS | Encounter Summary ---
Author Organization [facility] Address [address] [place] [address] Care Team Providers Care Needle Felt Making Machine Operator Name Role Phone Gaby Fleming MD Primary Care Provider [phone] Encounter Details Date Type Department Care Team (Late st Contact Info) Description 09/18/2016 [facility] [address] [facility]. [place], [place] [id number] Jason Barrett MD [address] [place], [place] [phone] [facility] Social History Tobacco [...] on filedocumented in this encounter Care Teams Needle Felt Making Machine Operator Relationship Specialty Start Date End Date Gaby Fleming MD [address] [place] [address] PCP - General 01/29/06 documented as of this encounter
--- OUTSIDE RECORDS SUMMARY | 2024-09-01 09:46 | XMS_ITS | Encounter Summary ---
[facility] Address [address] [place] [address] Care Team Providers Care Clinical Nursing Coordinator Name Role Phone Gaby Fleming MD Primary Care Provider [phone] Encounter Details Date Type Department Care Team [...] filedocumented in this encounter Care Teams Clinical Nursing Coordinator Relationship Specialty Start Date End Date Gaby Fleming MD [address] [place] [address] PCP - General 01/29/06 documented as of this encounter
--- OUTSIDE RECORDS SUMMARY | 2024-09-01 09:46 | XMS_ITS | Encounter Summary ---
Author Organization [facility] Address [address] [place] [address] Care Team Providers Care Location And Measurement Technician Name Role Phone Gaby Fleming MD Primary Care Provider [phone] Encounter Details Date Type Department Care Team (Late st Contact Info) Description 03/27/2015 Correspondence None No Primary/Referring, [facility] EQUIPMENT BRANCH OPERATIONS SPECIALIST TICKET Social History Tobacco Use Types [...] on filedocumented in this encounter Care Teams Location And Measurement Technician Relationship Specialty Start Date End Date Gaby Fleming MD [address] [place] [address] PCP - General 01/29/06 documented as of this encounter
--- OUTSIDE RECORDS SUMMARY | 2024-09-01 09:46 | XMS_ITS | Encounter Summary ---
Author Organization [facility] Address [address] [place] [address] Care Team Providers Care Shoe Cementer Name Role Phone Gaby Fleming MD Primary Care Provider [phone] Encounter Details Date Type Department Care Team (Late st Contact Info) Description 02/11/2013 Correspondence None No Primary/Referring, [facility] HEALTH PROVIDER SCREENING FORM Social History [...] this encounter Progress Notes * No Primary/Referring, [facility] - 02/11/2013 12:00 AM CST SHELVER documented in this encounter Plan of Treatment Not on file documented as of this encounter Visit Diagnoses Not on filedocumented in this encounter Care Teams Shoe Cementer Relationship Specialty Start Date End Date Gaby Fleming MD [address] [place] [address] PCP - General 01/29/06 documented as of this encounter
--- OUTSIDE RECORDS SUMMARY | 2024-09-01 09:46 | XMS_ITS | Encounter Summary ---
Author Organization [facility] Address [address] [place] [address] Care Team Providers Care Refrigerating Engineer Head Name Role Phone Gaby Fleming MD Primary Care Provider [phone] Encounter Details Date Type Department Care Team (Late st Contact Info) Description 02/02/2016 Refill Order [facility] [address] [place] [id number] [place] [address] [place] [id number] Social History Tobacco Use Types Packs/Day [...] Results * Hemoglobin, Blood (02/12/2016 2:43 PM LAW ENFORCEMENT INSTRUCTOR) Hemoglobin 12.7 12.0 - 16.0 g/dl [facility] 02/12/2016 2:43 PM LAW ENFORCEMENT INSTRUCTOR 02/12/2016 2:45 PM LAW ENFORCEMENT INSTRUCTOR Narrative [facility] - 02/12/2016 6:50 PM LAW ENFORCEMENT INSTRUCTOR Performed at [facility], [address] [place] [address] [place] Gaby Fleming MD LAB_1 Final Resul t [facility] [phone] documented in this encounter Visit Diagnoses Diagnosis Encounter for long-term (current) use of medications- Primary Encounter for long-term (current) use of other medications Acute gout of left knee, unspecified cause- Primary Encounter for long-term (current) use of medications Encounter for long-term (current) use of other medications documented in this encounter Care Teams Refrigerating Engineer Head Relationship Specialty Start Date End Date Gaby Fleming MD [address] [place] [address] PCP - General 01/29/06 documented as of this encounter
--- OUTSIDE RECORDS SUMMARY | 2024-09-01 09:46 | XMS_ITS | Encounter Summary ---
Author Organization [facility] Address [address] [place] [address] Care Team Providers Care Bed Manager Name Role Phone Gaby Fleming MD Primary Care Provider [phone] Encounter Details Date Type Department Care Team [...] on filedocumented in this encounter Care Teams Bed Manager Relationship Specialty Start Date End Date Gaby Fleming MD [address] [place] [address] PCP - General 01/29/06 documented as of this encounter
--- OUTSIDE RECORDS SUMMARY | 2024-09-01 09:46 | XMS_ITS | Encounter Summary ---
Author Organization [facility] Address [address] [place] [address] Care Team Providers Care Air Defense Artillery Senior Sergeant Name Role Phone Gaby Fleming MD Primary Care Provider [phone] Encounter Details Date Type Department Care Team (Late st Contact Info) Description 07/12/2014 [facility] [address] [place] [address]. [place], [place] [phone] Carlos Barrow MD [address] [place], [place] [phone] UROGYNECOLOGY QUESTIONNAIRE Social History Tobacco Use Types [...] filedocumented in this encounter Care Teams Air Defense Artillery Senior Sergeant Relationship Specialty Start Date End Date Gaby Fleming MD [address] [place] [address] PCP - General 01/29/06 documented as of this encounter
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
--- OUTSIDE RECORDS SUMMARY | 2024-09-01 09:46 | XMS_ITS | Clinical Summary ---
Author Organization [facility] Address [address] [place] [address] Care Team Providers Care Senior Sales Associate Name Role Phone Kat Fleming MD Primary Care Provider [phone] Source Comments You are receiving this document as you are listed as the primary care provider,follow-up provider, or the patient has been referred to you for consultation.This is in compliance with the Medicare and[facility] EHR Incentive Program,which states Providers who transition their patient to another setting of careor provider of care or refers their patient to another provider of care shouldprovide summary care record for each transition of care or referral. Peer60 Allergies Active Allergy Reactions Criticality Noted Date Comments Iodinated Contrast Media Anaphylaxis High 05/26/2014 Pt given Epi Pen and sent to ER post injection CT Contrast with pre medication given to patient prior to Contrast injection. Nitrofurantoin Other Anaphylaxis High 06/29/2014 Hand watershed program manager used by someone else in her group [...] opened 05/23/14, assigned to Radha Cantu RN, [facility], [place] Advocate @ [phone] Interactive with Asthma Disease Management Program, opt [...] deconditioning 07/26/2014 Vocal cord dysfunction 07/25/2014 CAREPLAN: [facility] CASE MANAGEMENT 2014 Overview (08/14/2016): Background: 11/04/14 Continue case open to Behavioral Health Case Manuel/Kim Spain @ [phone] Engaged in Complex Case Management: Santa Garcia RN [phone] Goals/Recommendations: CM will encourage patient to f/t [...] dated 09/08/2015. Also terminated by Deborah Campos [facility] (psychotherapy). Jaycob Ayala MD 09/08/2015, 3:15 PM Adjustment disorder with mix ed anxiety and depressed mood 08/04/2015 12/06/2015 Sensory integration disorder 07/26/2015 12/06/2015 Impaired mobility and ADLs 07/26/2015 0 12/06/2015 Severe episode of recurrent major depressive disorder, without psychotic features 06/09/201509/2015 Panic disorder without agoraphobia 04/20/2015 12/06/2015 [facility] Behavioral Health Case Management 10/07/19 15 01/11/2016 Overview (10/06/2014): Background: Diagnosis: Major Depressive Disorder, Generalized Anxiety Disorder, PTSD, Panic Disorder and Dissociative Identity Disorder. Current situation: The member was recently hospitalized on a psych unit at [facility] from 10/02/14-10/06/14. She was discharged with psychotherapy and psychiatry appointments. Providers outside of [facility]: The member sees two therapists at [facility]. Filipe Mcwilliams and Faith Vazquez. They can be reached at [phone]. Goals/Recommendations: Outpatient Behavioral Health Photography SpotterGas Operations Analyst Information: Kim Sosa MA, [facility] [phone] Action Plan: The member was provided with [...] Disorder Panic disorder without agoraphobia 12/30/2013 02/03/2015 [facility] Behavioral Health Case Management 12/24/19 14 02/21/2014 Overview (12/23/2013): Background: Enrolled in [facility] [place] [employer] Professional Program - coaching for Anxiety & Depression. Diagnosis: Dysthymia; Panic Disorder Current situation: Reports experiencing symptoms of depression and anxiety due to family stressors and significant challenges with maintaining a work/family balance. Patient has been participating in intensive mental health treatment since the middle of October. Patient s all 5 children live at home with her along with her elderly [id number]. Patient reports that she has experienced symptoms of depression for many years however, the anxiety is new for her and that she has challenges with her overall self-care. Providers outside of [facility]: Currently attending IOP at [facility] Goals/Recommendations: Outpatient Depression/Anxiety Director Of Orthopedics Contact Information: Garry Roman MS, [facility] [phone] Action Plan: To continue to work on improving overall self-care by developing a sleep schedule, engaging in physical activity, eating a balance diet, relaxation and participating in enjoyable activities. Director Of Orthopedics to provide health education information on overall self-care, stress relief, relaxation, anxiety, healthy eating as well as community support for anxiety/panic. Diverticulitis 10/16/2013 12/06/2015 Head revolving around 10/16/20132014 Nontoxic uninodular goiter 03/27/2004 1 04/05/2014 Immunizations Immunization Administration Dates Next Due DTaP 09/28/2014 Flu Vac (3+ yrs) 01/10/2012, 1,12/29/2008,2006,01/15/2006,01/11/2005,03/01/2004,1 04/04/2002,02/04/2002,02/04/2001, 000,01/18/1999 HepA-HepB ([place], 18+ yrs) 01/17/2016,06/02/19 03,12/25/2001 Influenza IIV4 (Quadrivalent ) 0.5mL (12566) 12/06/2015,12/22/2014,12/07/2013,2012 Influenza Vaccine (3+years) ([facility]) 01/09/2010,01/12/2008 Influenza, Unspecified Formulation 01/10/1998, [...] COVID-19 Vaccine ( - 2023- season) 2023 DTaP/Tdap/Td Vaccine (4 - Tdap) 10/26/2024 10/26/2014, 09/28/2014, 05/15/2010, Additional history exists Influenza Vaccine (Season Ended) 2024 12/06/2015, 12/22/2014, 12/07/2013, Additional history exists RSV Vaccine (1 - [...] this topic Medical Devices Implanted Type Area Tube Drawer Device Identifier Shelf Expiration Date Model / Serial / Lot Sling Advantage Mid-Urethral - [id number] Implanted:Qty: 1 on 02/21/2015 by Carlos Barrow MD at [facility] DEVICE N/A: VAGINA [employer] crown blocker 10/26/2017 [id number] / / [id number] Procedures Procedure Name Priority Date/Time Associated Diagnosis Comments LIPID PANEL & DIRECT LDL (IF NEEDED) Routine 03/19/2016 11:16 AM STATISTICAL METHODS PROFESSOR Pre-diabetes HEPATITIS C ANTIBODY, WITH REFLEX (ANTI-HCV) Routine 12/06/2015 9:36 AM CDT Preventative health care PAP TEST, ROUTINE Routine 09/06/2014 8:2 8 AM CDT Screening for cervical cancer MM MAMMOGRAM SCREENING BILAT W CAD Routine 04/11/2014 2:06 PM STATISTICAL METHODS PROFESSOR COLONOSCOPY Routine 08/09/2011 8:56 AM CDT Abn findings-GI tract from Last 3 Months or Most Recently Relevant to Health Maintenance Results * (ABNORMAL) Lipid Panel and Direct LDL(If Needed) (03/19/2016 11:16 AM STATISTICAL METHODS PROFESSOR) Hours Fasting 2 hours [facility] Cholesterol 179 0 - 199 mg/dl [facility] Triglyceride 161(H) 0 - 149 mg/dl [facility] HDL 40(L) >40 mg/dl [facility] LDL, Calc. 107 0 - 129 mg/dl [facility] Non HDL Chol, Calc 139 mg/dl [facility] 03/19/2016 11:1 6 AM STATISTICAL METHODS PROFESSOR 03/19/2016 11:17 AM STATISTICAL METHODS PROFESSOR Narrative [facility] - 03/19/2016 6:49 PM STATISTICAL METHODS PROFESSOR Performed at [facility], [address] [place], [place] [id number] us Kat Fleming MD LAB_1 Final Resul t Performing Organization Address [facility] de Phone Number [facility] [phone] * Hepatitis C Antibody, with Reflex (12/06/2015 9:36 AM CDT) Anti-HCV Negative (Non Reactive) NEGNR [facility] Comment: Antibodies to HCV not detected. Does not exclude the possibility of exposure to HCV. 12/06/2015 9:36 AM CDT 12/06/2015 9:37 AM CDT Narrative [facility] - 12/06/2015 8:01 PM CDT Performed at [facility], [address] [place], [place] [id number] us Kat Fleming MD LAB_1 Final Resul t Performing Organization Address [facility] de Phone Number [facility] [phone] * PAP TEST, ROUTINE (09/06/2014 8:28 AM CDT) Cytology, Pap (NOTE) Investigations Chief Cytology Report Patient Name: SOPHIE CASTRO Taken: 09/06/2014 Received: 09/06/2014 Reported: 09/12/2014 Physician(s): KAT FLEMING ([id number]) Source of Specimen Pap Test, Routine Cervical/Endocervi zane: Specimen Adequacy Satisfactory for evaluation. Endocervical component present. Final Cytologic Interpretation/Res ult NEGATIVE FOR INTRAEPITHELIAL LESION OR MALIGNANCY (NILM) Other Cytologic Findings Atrophy Electronically Signed Out By ABDELRAHMAN Andrew (ASCP) ABDELRAHMAN Andrew (ASCP) Pap Smear History Date of Last Menstrual Period: Menopausal Microscopic Description Microscopic examination is performed. [facility] Department of Pathology [address] [place] [id number] [facility] 09/06/2014 8:28 AM CDT 09/06/2014 5:03 PM CDT Kat Fleming MD LAB_1 Final Resul t [facility] [phone] * MAMMOGRAM SCREENING BILATERAL (04/11/2014 2:06 PM STATISTICAL METHODS PROFESSOR) Anatomical Region Laterality Modality Breast Bilateral Mammography Narrative 04/12/2014 2:34 PM STATISTICAL METHODS PROFESSOR BILATERAL FULL FIELD DIGITAL SCREENING MAMMOGRAM Performed [...] RAD ZENA Final Resul t * COLONOSCOPY [[id number]] (08/09/2011 8:56 AM CDT) 08/09/2011 8:56 AM [...] previously scheduled. CPT(R) Code(s): --- Professional --- 72225, Colonoscopy, flexible, proximal to splenic flexure; diagnostic, with or without collection of specimen(s) by brushing or washing, with or without colon decompression (separate procedure) ICD9 Code(s): --- Professional --- 793.4, Nonspecific (abnormal) findings on radiological and other examination of gastrointestinal tract 562.10, Diverticulosis of colon (without mention of hemorrhage) CPT (R) 2011 [employer]. All Rights Reserved. The codes documented in this report are preliminary and upon engineering inspection assistant review may be revised to meet current [...] previously scheduled. CPT(R) Code(s): --- Professional --- 20173, Colonoscopy, flexible, proximal to splenic flexure; diagnostic, with or without collection of specimen(s) by brushing or washing, with or without colon decompression (separate procedure) ICD9 Code(s): --- Professional --- 793.4, Nonspecific (abnormal) findings on radiological and other examination of gastrointestinal tract 562.10, Diverticulosis of colon (without mention of hemorrhage) CPT (R) 2011 [employer]. All Rights Reserved. The codes documented in this report are preliminary and upon engineering inspection assistant review may be revised to meet current compliance requirements. Attending Participation: Ari Amanda MD 08/09/2011 9:21 AM Number of Addenda: 0 Note Initiated On: 08/09/2011 8:56 AM Ari Amanda MD DIGESTIVE CARE Final Result GI (PROVATION) [place], [place] from Last 3 Months or Most Recently Relevant to Health Maintenance Insurance [facility] MEDICARE Advance Directives * Full Code (Latest Code Status on File) Date Activated Date Inactivated Comments 10/24/2014 4:56 AM 10/26/2014 2:53 PM * Full Code Date Activated Date Inactivated Comments 10/03/2014 12:15 PM 10/06/2014 1:15 PM * Full Code Date Activated Date Inactivated Comments 04/22/2014 8:28 PM 04/28/2014 4:20 PM Care Teams Senior Sales Associate Relationship Specialty Start Date End Date Kat Fleming MD [address] [place] [address] PCP - General 01/29/06
--- OUTSIDE RECORDS SUMMARY | 2024-09-01 09:46 | XMS_ITS | Encounter Summary ---
Author Organization [facility] Address [address] [place] [address] Care Team Providers Care Medical Imaging Specialist Name Role Phone Gaby Fleming MD Primary Care Provider [phone] Encounter Details Date Type Department Care Team (Latest Contact Info) Description 08/15/1994 Orders Only Myrna Armas [address] [address] Social History Tobacco Use Types Packs/Day Years [...] filedocumented in this encounter Care Teams Medical Imaging Specialist Relationship Specialty Start Date End Date Gaby Fleming MD [address] [place] [address] PCP - General 01/29/06 documented as of this encounter
--- OUTSIDE RECORDS SUMMARY | 2024-09-01 09:46 | XMS_ITS | Encounter Summary ---
Author Organization [facility] Address [address] [place] [address] Care Team Providers Care Quarter Seamer Name Role Phone Gaby Fleming MD Primary Care Provider [phone] Encounter Details Date Type Department Care Team (Late st Contact Info) Description 10/06/2014 Correspondence [facility] Radiology [address] [place] [id number] Radiology, Provider MRI SAFETY SHEET AND COMPATIBILITY [...] on filedocumented in this encounter Care Teams Quarter Seamer Relationship Specialty Start Date End Date Gaby Fleming MD [address] [place] [address] PCP - General 01/29/06 documented as of this encounter
--- OUTSIDE RECORDS SUMMARY | 2024-09-01 09:46 | XMS_ITS | Encounter Summary ---
Author Organization [facility] Address [address] [place] [address] Care Team Providers Care Management Department Chair Name Role Phone Gaby Fleming MD Primary Care Provider [phone] Encounter Details Date Type Department Care Team (Late st Contact Info) Description 09/27/2016 Correspondence [facility] [address] [facility] [place], [place] [phone] Jason Barrett MD [address] [place], [place] [phone] [facility] Social History Tobacco [...] on filedocumented in this encounter Care Teams Management Department Chair Relationship Specialty Start Date End Date Gaby Fleming MD [address] [place] [address] PCP - General 01/29/06 documented as of this encounter
--- OUTSIDE RECORDS SUMMARY | 2024-09-01 09:46 | XMS_ITS | Encounter Summary ---
Author Organization [facility] Address [address] [place] [address] Care Team Providers Care Salvage Winder And Inspector Name Role Phone Gaby Fleming MD Primary Care Provider [phone] Encounter Details Date Type Department Care Team (Latest Contact Info) Description 08/19/1994 Orders Only Myrna Armas [address] [address] Social History Tobacco Use Types Packs/Day Years [...] on filedocumented in this encounter Care Teams Salvage Winder And Inspector Relationship Specialty Start Date End Date Gaby Fleming MD [address] [place] [address] PCP - General 01/29/06 documented as of this encounter
--- OUTSIDE RECORDS SUMMARY | 2024-09-01 09:46 | XMS_ITS | Encounter Summary ---
Author Organization [facility] Address [address] [place] [address] Care Team Providers Care Semiconductor Wafers Marker Name Role Phone Gaby Fleming MD Primary Care Provider [phone] Encounter Details Date Type Department Care Team [...] filedocumented in this encounter Care Teams Semiconductor Wafers Marker Relationship Specialty Start Date End Date Gaby Fleming MD [address] [place] [address] PCP - General 01/29/06 documented as of this encounter
--- OUTSIDE RECORDS SUMMARY | 2024-09-01 09:46 | XMS_ITS | Encounter Summary ---
Author Organization [facility] Address [address] [place] [address] Care Team Providers Care Principal Embedded Software Engineer Name Role Phone Gaby Fleming MD Primary Care Provider [phone] Encounter Details Date Type Department Care Team [...] filedocumented in this encounter Care Teams Principal Embedded Software Engineer Relationship Specialty Start Date End Date Gaby Fleming MD [address] [place] [address] PCP - General 01/29/06 documented as of this encounter
--- OUTSIDE RECORDS SUMMARY | 2024-09-01 09:47 | XMS_ITS | Encounter Summary ---
Author Organization [facility] Address [address] [address] Care Team Providers Care Tanbark Laborer Name Role Phone aGby Fleming MD Primary Care Provider [phone] Encounter Details Date Type Department Care Team [...] on filedocumented in this encounter Care Teams Tanbark Laborer Relationship Specialty Start Date End Date Gaby Fleming MD [address] [place] [address] PCP - General 01/29/06 documented as of this encounter
--- OUTSIDE RECORDS SUMMARY | 2024-09-01 09:47 | XMS_ITS | Encounter Summary ---
Author Organization [facility] Address [address] [place] [address] Care Team Providers Care Food And Nutrition Teacher Name Role Phone Gaby Fleming MD Primary Care Provider [phone] Encounter Details Date Type Department Care Team (Latest Contact Info) Description 11/22/2013 Correspondence [facility] Partial Hospitalization Program [address] [place] [address] [facility] SAFETY PLAN Social History Tobacco Use [...] filedocumented in this encounter Care Teams Food And Nutrition Teacher Relationship Specialty Start Date End Date Gaby Fleming MD [address] [place] [address] PCP - General 01/29/06 documented as of this encounter
--- OUTSIDE RECORDS SUMMARY | 2024-09-01 09:47 | XMS_ITS | Encounter Summary ---
Author Organization [facility] Address [address] [place] [address] Care Team Providers Care Director Service Name Role Phone Gaby Fleming MD Primary Care Provider [phone] Encounter Details Date Type Department Care Team (Late st Contact Info) Description 07/17/2015 Correspondence None No Primary/Referring, Phy HME EQUIPMENT DENTAL MANAGER TICKET CPAP Social History Tobacco Use Types [...] filedocumented in this encounter Care Teams Director Service Relationship Specialty Start Date End Date Gaby Fleming MD [address] [place] [address] PCP - General 01/29/06 documented as of this encounter
--- OUTSIDE RECORDS SUMMARY | 2024-09-01 09:47 | XMS_ITS | Encounter Summary ---
Author Organization [facility] Address [address] [place] [address] Care Team Providers Care High School Assistant Principal Name Role Phone Gaby Fleming MD Primary Care Provider [phone] Encounter Details Date Type Department Care Team (Late st Contact Info) Description 04/06/2015 Correspondence None No Primary/Referring, Phy HME EQUIPMENT EQUIPMENT SERVICES ASSOCIATE TICKET Social History Tobacco Use Types Packs/Day [...] on filedocumented in this encounter Care Teams High School Assistant Principal Relationship Specialty Start Date End Date Gaby Fleming MD [address] [place] [address] PCP - General 01/29/06 documented as of this encounter
--- OUTSIDE RECORDS SUMMARY | 2024-09-01 09:47 | XMS_ITS | Encounter Summary ---
Author Organization [facility] Address [address] [address] Care Team Providers Care Student Services Dean Name Role Phone Gaby Fleming MD Primary Care Provider [phone] Encounter Details Date Type Department Care Team (Late st Contact Info) Description 07/17/2015 Correspondence None No Primary/Referring, Phy HME EQUIPMENT DRAWING PRESS OPERATOR TICKET Social History Tobacco Use Types [...] on filedocumented in this encounter Care Teams Student Services Dean Relationship Specialty Start Date End Date Gaby Fleming MD [address] [place] [address] PCP - General 01/29/06 documented as of this encounter
--- OUTSIDE RECORDS SUMMARY | 2024-09-01 09:47 | XMS_ITS | Encounter Summary ---
Author Organization [facility] Address [address] [place] [address] Care Team Providers Care Video Clerk Name Role Phone Gaby Fleming MD Primary Care Provider [phone] Encounter Details Date Type Department Care Team (Late st Contact Info) Description 03/28/2015 Correspondence [facility] [address] [facility] [place] [address] Gaby Fleming MD [address] [place] [address] DME EQUIPMENT PROOF OF DELIVERY Social [...] on filedocumented in this encounter Care Teams Video Clerk Relationship Specialty Start Date End Date Gaby Fleming MD [address] [facility] [place] [address] PCP - General 01/29/06 documented as of this encounter
--- NOTE | 2024-09-01 09:55 | ED.GENADULT ---
HPI - General Adult General Chief complaint: Nausea/Vomiting Stated complaint: Dizziness, Hypotension Time Seen by Provider: 09/01/24 09:50 History of Present Illness HPI narrative: Patient is a 69-year-old female that is had upset stomach nausea vomiting over the last few days, she has chronic diarrhea by her report. She is on chronic hydrocortisone. She has Farhat's disease and POTS syndrome. She was brought in by ambulance with known hypertension from her caregiver today in the 80s systolic. She has been a little lightheaded and dizzy as well. No other specific complaints. No dysuria frequency cough fever. No chest pain. No rigors or shakes. 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 She has borderline personality and PTSD as well. She has a history of asthma and GE reflux. Her chart was reviewed in detail. Related Data Home Medications ?Medication ?Instructions ?Recorded ?Confirmed loperamide 2 mg capsule 4 mg PO QID PRN 10/02/21 07/28/24 montelukast 10 mg tablet 10 mg PO HS 10/02/21 07/28/24 albuterol sulfate 90 mcg/actuation 2 puff inhalation Q4H PRN 06/07/22 07/28/24 aerosol inhaler cevimeline 30 mg capsule 1 cap PO TID 06/07/22 07/28/24 lorazepam 0.5 mg tablet 0.5 mg PO DAILY PRN 06/07/22 07/28/24 dicyclomine 10 mg capsule 10 mg PO Q6H PRN cramps 08/10/22 07/28/24 dextroamphetamine-amphetamine ER 1 cap PO DAILY 09/20/22 07/28/24 10 mg 24hr capsule,extend release divalproex 500 mg tablet,delayed 2,000 mg PO DAILY 09/20/22 07/28/24 release doxepin 10 mg capsule 10 mg PO DAILY 09/20/22 07/28/24 famotidine 40 mg tablet 40 mg PO HS 06/17/24 07/28/24 fluticasone 500 mcg-salmeterol 50 1 inh inhalation BID 06/17/24 07/28/24 mcg/dose blistr powdr for inhalation omeprazole 40 mg capsule,delayed 40 mg PO DAILY 06/17/24 07/28/24 release calcium 600 mg (as 1 tab PO BID 07/28/24 07/28/24 carbonate)-vitamin D3 10 mcg (400 unit) tablet metoprolol succinate 25 mg 25 mg PO DAILY 07/28/24 07/28/24 tablet,extended release 24 hr trazodone 150 mg tablet 75 mg PO HS 07/28/24 07/28/24 dextroamphetamine-amphetamine 10 1 tab PO DAILY 07/29/24 07/29/24 mg tablet guanfacine 1 mg tablet 1 mg PO QPM 07/29/24 07/29/24 Previous Rx's ?Medication ?Instructions ?Recorded azithromycin 250 mg tablet 250 mg PO DAILY 1 day #1 tab 07/31/24 codeine 10 mg-guaifenesin 100 mg/5 10 ml PO QID PRN 7 days #250 mL 07/31/24 mL oral liquid guaifenesin 600 mg tablet, 600 mg PO BID 14 days #28 tabs 07/31/24 extended release 12 hr (Mucinex) prednisone 20 mg tablet 20 mg PO DAILYWM 3 days #3 tabs 07/31/24 venlafaxine 75 mg capsule,extended 300 mg (4 x 75 mg) PO DAILY 30 07/31/24 release 24 hr days #60 caps Allergies Allergy/AdvReac Type Severity Reaction Status Date / Time nitrofurantoin Allergy Unknown Verified 06/25/24 10:04 Iodinated Contrast Media AdvReac Rash Verified 07/26/24 12:57 Sulfa (Sulfonamide AdvReac Rash Verified 07/26/24 12:57 Antibiotics) 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 Allergy Severe Anaphylaxis Uncoded 06/17/24 12:31 Ioxaglate sodium Allergy Unknown Uncoded 06/17/24 12:31 Review of Systems Status of ROS: Reports: 6 or more systems reviewed and unremarkable except as noted in History and below [facility] Medical History UTI (urinary tract infection) ?N39.0 - Urinary tract infection, site not specified (ICD-10) Steroid long-term use Tear of medial meniscus of right knee ?S83.241A - Other tear of medial meniscus, current injury, right knee, initial encounter (ICD-10) Osteoarthritis of right knee ?M17.11 - Unilateral primary osteoarthritis, right knee (ICD-10) Irritable bowel syndrome ?K58.9 - Irritable bowel syndrome without diarrhea (ICD-10) Physical deconditioning ?R53.81 - Other malaise (ICD-10) Chronic diarrhea ?K52.9 - Noninfective gastroenteritis and colitis, unspecified (ICD-10) Anxiety ?F41.9 - Anxiety disorder, unspecified (ICD-10) History of prediabetes ?Z87.898 - Personal history of other specified conditions (ICD-10) History of major depression ?Z86.59 - Personal history of other mental and behavioral disorders (ICD-10) Surgical History S/P ORIF (open reduction internal fixation) fracture (08/10/22) ?Z98.890 - Other specified postprocedural states (ICD-10) ?Z87.81 - Personal history of (healed) traumatic fracture (ICD-10) History of loop recorder (03/17/19) ?Z98.890 - Other specified postprocedural states (ICD-10) History of partial thyroidectomy (1999) ?E89.0 - Postprocedural hypothyroidism (ICD-10) History of cholecystectomy (1983) ?Z90.49 - Acquired absence of other specified parts of digestive tract (ICD-10) History of bladder suspension procedure (2014) ?Z98.890 - Other specified postprocedural states (ICD-10) ?Z87.448 - Personal history of other diseases of urinary system (ICD-10) Family History Mother Alcoholism Social History Narrative: Nonsmoker. Does not exercise. . 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 5 adult children. She lives with her daughter who has mental disability-?Autism What is your current living situation?: I presently have a place to live Problems where you live: no known problems Problems where you live details: n/a In the past 12 months, utilities in danger of being shut off: no In past 12 months, lack of transportation kept you from medical appts, meetings, work, or getting things needed for daily living: no In the past 12 mos, have been you worried that your food would run out before you had money to buy more?: never true In the past 12 mos, the food you bought just didn't last and you didn't have money to buy more?: never true Highest level of school completed/degree received: Master's degree Smoking Status: Never smoker Do you use any of these nicotine containing products: None Second hand tobacco smoke exposure: No How often do you have a drink containing alcohol: never AUDIT-C Alcohol total score: 0 Non-prescribed substance use: denies use Caffeine: No How often does anyone, including family, friends and others, physically hurt you: never How often does anyone, including family, friends and others, insult or talk down to you: never How often does anyone, including family, friends and others, threaten you with harm: never How often does anyone, including family, friends and others, scream or curse at you: never service: No Exam Narrative: Exam Narrative: Objective: In general the patient is in no apparent distress resting comfortably HEENT shows dry mucous membranes otherwise unremarkable no scleral icterus no facial asymmetry neck is supple chest clear heart rhythm regular 2/6 out 6 systolic murmur Abdomen benign soft nontender no masses or peritonitis Extremities good perfusion neurologic nonfocal upper extremities. Blood pressure is noted to be in the upper 80 range systolic. Const: Vital Signs, click to edit/add: Vital Signs - 24 hr 09/01/24 09:51 09/01/24 09:53 09/01/24 10:43 Temperature 98.0 F Pulse Rate 73 Pulse Rate [Pulse Oximeter] 77 Respiratory Rate 20 Blood Pressure Blood Pressure [Ri ght Upper Arm] 88/76 L Pulse Oximetry 90 95 89 [facility] 09/01/24 10:45 09/01/24 10:47 09/01/24 10:48 Temperature Pulse Rate 71 73 71 Pulse Rate [Pulse Oximeter] Respiratory Rate Blood Pressure 89/52 L Blood Pressure [Ri ght Upper Arm] Pulse Oximetry 90 91 89 [facility] 09/01/24 11:00 09/01/24 11:02 09/01/24 11:15 Temperature Pulse Rate 71 70 72 Pulse Rate [Pulse Oximeter] Respiratory Rate Blood Pressure 91/47 L Blood Pressure [Ri ght Upper Arm] Pulse Oximetry 89 89 90 Oxygen Delivery [facility] 09/01/24 11:17 09/01/24 11:30 09/01/24 11:32 Temperature Pulse Rate 71 68 68 Pulse Rate [Pulse Oximeter] Respiratory Rate Blood Pressure 102/53 L 108/38 L Blood Pressure [Ri ght Upper Arm] Pulse Oximetry 91 89 88 Oxygen Delivery Me thod 09/01/24 11:33 09/01/24 11:51 09/01/24 11:52 Temperature Pulse Rate 68 64 63 Pulse Rate [Pulse Oximeter] Respiratory Rate Blood Pressure 120/57 L Blood Pressure [Ri ght Upper Arm] Pulse Oximetry 89 91 93 Oxygen Delivery Me thod 09/01/24 12:00 09/01/24 12:02 09/01/24 12:15 Temperature Pulse Rate 63 63 61 Pulse Rate [Pulse Oximeter] Respiratory Rate Blood Pressure 115/57 L Blood Pressure [Ri ght Upper Arm] Pulse Oximetry 94 93 90 Oxygen Delivery Me thod 09/01/24 12:17 09/01/24 12:30 09/01/24 12:32 Temperature Pulse Rate 61 61 60 Pulse Rate [Pulse Oximeter] Respiratory Rate Blood Pressure 110/61 110/67 Blood Pressure [Ri ght Upper Arm] Pulse Oximetry 94 91 92 Oxygen Delivery Me thod 09/01/24 12:45 09/01/24 12:47 09/01/24 13:00 Temperature Pulse Rate 60 61 63 Pulse Rate [Pulse Oximeter] Respiratory Rate Blood Pressure 114/62 Blood Pressure [Ri ght Upper Arm] Pulse Oximetry 92 93 93 Oxygen Delivery Nm thod 09/01/24 13:02 Temperature Pulse Rate Pulse Rate [Pulse Oximeter] Respiratory Rate Blood Pressure 116/63 Blood Pressure [Ri ght Upper Arm] Pulse Oximetry [facility]xygen [facility] Course Vital Signs Vital signs: Initial Vital Signs Pulse Oximetry 90 09/01/24 09:51 Vital Signs Pulse Oximetry 90 09/01/24 09:51 Temperature 98.0 F 09/01/24 09:53 Pulse Rate 63 09/01/24 13:00 Respiratory Rate 20 09/01/24 09:53 Blood Pressure 116/63 09/01/24 13:02 Pulse Oximetry 93 09/01/24 13:00 Oxygen Delivery Method Room Air 09/01/24 09:53 Medications Administered Medications: Discontinued Medications Generic Name Dose Route Start Last Admin Trade Name Freq PRN Reason Stop Dose Admin Hydrocortisone Sodium Succinate 100 mg 09/01/24 09:54 09/01/24 10:18 Hydrocortisone Sod Succinate 50 Mg/Ml Inj IVP 09/01/24 09:55 100 mg ONCE ONE Administration Sodium Chloride 1,000 mls @ 6,000 mls/hr 09/01/24 10:00 09/01/24 13:08 0.9 % Sodium Chloride 1000 Ml IV 09/01/24 10:09 Infused .Q10M ELIZABETH Infusion Ondansetron HCl 4 mg 09/01/24 09:51 09/01/24 10:20 Ondansetron 2 Mg/Ml Inj IVP 09/01/24 09:52 4 mg ONCE ONE Administration Medical Decision Making MDM Narrative Medical decision making narrative: 69-year-old female with POTS syndrome and Mcminn's disease presents with episode of hypotension, nausea vomiting, sounds like chronic diarrhea or loose stools. The patient will get IV fluid. Will give stress dose steroid of hydrocortisone. Will check a blood culture urinalysis electrolytes, give a L of IV fluid. Her blood pressure is already improved with some fluid from the paramedics. They also improved her nausea with 2 mg IV Zofran. Differential would include infection, dehydration, manifestation of Mcminn's or POTS syndrome. Disposition pending response to the above treatments. Addendum 12:30 p.m. patient's EKG by my read shows limited R-wave progression anteriorly but no acute ST T wave changes. Her lab studies all look reassuring including a negative CRP negative troponin fairly normal urinalysis common white count that is normal at 5700 ER profile is largely unremarkable and glucose nonfasting 118 urinalysis is basically unremarkable as mentioned will wait for urine culture viral studies are negative. Patient's blood pressure is markedly improved I think she might have just been a little bit on the dry side she reports she was not drinking as much fluid as normal. Will await her blood cultures but I think she can go home rest light activity her blood pressure is markedly improved now in the 1 teens systolic. Follow up with regular doctor next 2-3 days return to the ER sooner problems or concerns. Lab Data Labs: Lab Results 09/01/24 09/01/24 09/01/24 Range/Units 09:52 10:18 10:28 WBC 5.70 (4.50-11.00) K/uL RBC 3.65 L (4.00-5.20) m/uL Hgb 11.1 L (12.0-16.0) gm/dL Hct 34.9 (33.0-51.0) % MCV 96 (80-100) fL MCH 30 (26-34) pg MCHC 32 (32-36) gm/dL RDW Coeff of Quirino 12.3 (11.5-15.5) % Plt Count 206 (140-440) K/uL Neut % (Auto) 61.3 (42.0-72.0) % Lymph % (Auto) 25.1 (20-44) % Edmunds % (Auto) 10.4 (0.0-11.0) % Eos % (Auto) 1.6 (0.0-7.0) % Baso % (Auto) 0.5 (0.0-3.0) % Neut # (Auto) 3.50 (1.7-7.0) K/uL Lymph # (Auto) 1.43 (0.90-2.90) K/uL Edmunds # (Auto) 0.60 (0.00-0.90) K/UL Eos # (Auto) 0.09 (0.00-0.50) K/uL Baso # (Auto) 0.03 (0.00-0.30) K/uL Abs Immat Gran (auto) 0.06 (0.00-0.30) K/uL Imm/Tot Granulo (auto) 1.1 % INR 1.06 (0.91-1.10) Sodium 136 (135-149) mmol/L Potassium 4.0 (3.6-5.1) mmol/L Chloride 101 (96-114) mmol/L Carbon Dioxide 32 (20-32) mmol/L Anion Gap 3 L (7-15) mEq/L BUN 11 (7-30) mg/dL Creatinine 0.8 (0.5-1.5) mg/dL Estimated GFR 81 ml/min Glucose 118 H (60-115) mg/dL Lactate 1.7 (0.5-1.9) mmol/L Calcium 8.8 (8.4-10.6) mg/dL Total Bilirubin 0.4 (0.1-1.5) mg/dL Direct Bilirubin 0.1 (0.0-0.5) mg/dL AST 21 (12-35) U/L ALT 14 (4-35) U/L Alkaline Phosphatase 45 (40-150) U/L C-Reactive Protein < 0.5 L (0.5-1.0) mg/dL Total Protein 5.9 L (6.0-8.3) g/dL Albumin 3.4 (3.3-5.0) g/dL Urine Color (Yellow) Urine Appearance (Clear) Urine pH (5.0-8.5) Ur Specific [place] (1.000-1.030) Urine Protein (Negative) Urine Glucose (UA) (Negative) Urine Ketones (Negative) Urine Blood (Negative) Urine Nitrite (Negative) Urine Bilirubin (Negative) Urine Urobilinogen (0.2-1.0) Ur Leukocyte Esterase (Negative) Urine RBC (0-2) Urine WBC (0-5) Ur Squamous Epith Cells (None-Few) Urine Bacteria (None) SARS-CoV-2 (PCR) Negative SARS-CoV-2 (Negative) Influenza Type A (PCR) Negative PCR FLU A (Negative) Influenza Type B (PCR) Negative PCR FLU B (Negative) RSV (PCR) Negative PCR RSV (Negative) POC Troponin I 0.00 L (0.01-0.04) ng/ml 09/01/24 Range/Units 11:42 WBC (4.50-11.00) K/uL RBC (4.00-5.20) m/uL Hgb (12.0-16.0) gm/dL Hct (33.0-51.0) % MCV (80-100) fL MCH (26-34) pg MCHC (32-36) gm/dL RDW Coeff of Quirino (11.5-15.5) % Plt Count (140-440) K/uL Neut % (Auto) (42.0-72.0) % Lymph % (Auto) (20-44) % Edmunds % (Auto) (0.0-11.0) % Eos % (Auto) (0.0-7.0) % Baso % (Auto) (0.0-3.0) % Neut # (Auto) (1.7-7.0) K/uL Lymph # (Auto) (0.90-2.90) K/uL Edmunds # (Auto) (0.00-0.90) K/UL Eos # (Auto) (0.00-0.50) K/uL Baso # (Auto) (0.00-0.30) K/uL Abs Immat Gran (auto) (0.00-0.30) K/uL Imm/Tot Granulo (auto) % INR (0.91-1.10) Sodium (135-149) mmol/L Potassium (3.6-5.1) mmol/L Chloride (96-114) mmol/L Carbon Dioxide (20-32) mmol/L Anion Gap (7-15) mEq/L BUN (7-30) mg/dL Creatinine (0.5-1.5) mg/dL Estimated GFR ml/min Glucose (60-115) mg/dL Lactate (0.5-1.9) mmol/L Calcium (8.4-10.6) mg/dL Total Bilirubin (0.1-1.5) mg/dL Direct Bilirubin (0.0-0.5) mg/dL AST (12-35) U/L ALT (4-35) U/L Alkaline Phosphatase (40-150) U/L C-Reactive Protein (0.5-1.0) mg/dL Total Protein (6.0-8.3) g/dL Albumin (3.3-5.0) g/dL Urine Color Yellow (Yellow) Urine Appearance Clear (Clear) Urine pH 7.0 (5.0-8.5) Ur Specific [place] 1.015 (1.000-1.030) Urine Protein Negative (Negative) Urine Glucose (UA) Negative (Negative) Urine Ketones Negative (Negative) Urine Blood Negative (Negative) Urine Nitrite Negative (Negative) Urine Bilirubin Negative (Negative) Urine Urobilinogen 0.2 (0.2-1.0) Ur Leukocyte Esterase 1+ A (Negative) Urine RBC 0-2 (0-2) Urine WBC 2-5 (0-5) Ur Squamous Epith Cells Few (None-Few) Urine Bacteria Moderate A (None) SARS-CoV-2 (PCR) (Negative) Influenza Type A (PCR) (Negative) Influenza Type B (PCR) (Negative) RSV (PCR) (Negative) POC Troponin I (0.01-0.04) ng/ml Discharge Plan Discharge Clinical Impression: Acute hypotension, Dehydration, Farhat's disease, POTS (postural orthostatic tachycardia syndrome), Nausea & vomiting Patient Disposition: Home w/ Parent or Adult Condition: Improved Instructions: POTS (Postural Orthostatic Tachycardia Syndrome) (ED) Additional Instructions: Continue home medications, fluids, light activity, recheck with regular doctor next 2-3 days, return to ED sooner problems or concerns. Activity Level: Light activity Discharge Diet: Regular Prescriptions: No Action montelukast 10 mg tablet 10 mg PO HS loperamide 2 mg capsule 4 mg PO QID PRN divalproex 500 mg tablet,delayed release (DR/EC) 2,000 mg PO DAILY doxepin 10 mg capsule 10 mg PO DAILY dextroamphetamine-amphetamine 10 mg capsule,extended release 24hr 1 cap PO DAILY famotidine 40 mg tablet 40 mg PO HS fluticasone propion-salmeterol 500-50 mcg/dose blister with device 1 inh inhalation BID omeprazole 40 mg capsule,delayed release(DR/EC) 40 mg PO DAILY calcium carbonate-vitamin D3 600 mg-10 mcg (400 unit) tablet 1 tab PO BID metoprolol succinate 25 mg tablet extended release 24 hr 25 mg PO DAILY trazodone 150 mg tablet 75 mg PO HS dextroamphetamine-amphetamine 10 mg tablet 1 tab PO DAILY guanfacine 1 mg tablet 1 mg PO QPM venlafaxine 75 mg Capsule,Extended Release 24hr 300 mg PO DAILY 30 Days Qty: 60 0RF azithromycin 250 mg Tablet 250 mg PO DAILY 1 Days Qty: 1 0RF Taper: Z-STEVEN 250 mg Q24H for 1 Day and 0 Hour prednisone 20 mg Tablet 20 mg PO DAILYWM 3 Days Qty: 3 0RF codeine-guaifenesin 10-100 mg/5 mL Liquid 10 ml PO QID PRN7 Days Qty: 250 0RF guaifenesin [Mucinex] 600 mg Tablet Extended Release 12hr 600 mg PO BID 14 Days Qty: 28 0RF albuterol sulfate 90 mcg/actuation HFA aerosol inhaler 2 puff INHALATION Q4H PRN lorazepam 0.5 mg tablet 0.5 mg PO DAILY PRN cevimeline 30 mg capsule 1 cap PO TID dicyclomine 10 mg capsule 10 mg PO Q6H PRN (Reason: cramps) Follow Up/Referrals: Angi Estevez DO [Primary Care Provider, Family Practice] Stand Alone Forms: MyHealth Info Instructions
[2024-09-01] MEDS: HYDROCORTISONE SOD SUCCINATE 50 MG/ML inj 100 MG IVP (10:18)
[2024-09-01] MEDS: 0.9 % SODIUM CHLORIDE 1000 ml 1,000 ML 6000 ML IV (10:18)
[2024-09-01] MEDS: ONDANSETRON 2 MG/ML inj 4 MG IVP (10:20)
[2024-09-01 10:33] LABS: Lactate* 1.7 mmol/L (0.5-1.9)
[2024-09-01 10:39] LABS: Basophils Absolute Auto 0.03 K/uL (0.00-0.30); Basophils Percent Auto 0.5 % (0.0-3.0); Eosinophils Absolute Auto 0.09 K/uL (0.00-0.50); Eosinophils Percent Auto 1.6 % (0.0-7.0); Hematocrit 34.9 % (33.0-51.0); Hemoglobin* 11.1 gm/dL (12.0-16.0); Immature Granulocytes Abs Auto 0.06 K/uL (0.00-0.30); Immature Granulocytes Pct Auto 1.1 %; Lymphocytes Absolute Auto 1.43 K/uL (0.90-2.90); Lymphocytes Percent Auto 25.1 % (20-44); Mean Corpuscular HGB Conc 32 gm/dL (32-36); Mean Corpuscular Hemoglobin 30 pg (26-34); Mean Corpuscular Volume 96 fL (80-100); Monocytes Percent Auto 10.4 % (0.0-11.0); Neutrophils Percent Auto 61.3 % (42.0-72.0); Platelet Count* 206 K/uL (140-440); RDW Coefficient of Variation % 12.3 % (11.5-15.5); Red Blood Count 3.65 m/uL (4.00-5.20)
--- OUTSIDE RECORDS SUMMARY | 2024-09-01 10:45 | XMS_ITS | CCD ---
Author Organization Unknown Care Team Providers Care Radiology Director Name Role Phone [employer], [place] Primary Care Provider Unava ilable Unavailable Chronic Care Management Unavaila ble Summary Purpose DataExchange Insurance Providers Payer name Policy type / Coverage type Covered republican ID Effective Begin Date Effective End Date [facility] Commercial Insurance [id number] Unknown Unkn own Family History Family History data not found Medication Administered No Medication Administered data Reason For Visit No Reason For Visit data
--- OUTSIDE RECORDS SUMMARY | 2024-09-01 10:46 | XMS_ITS | CCD ---
Author Organization Unknown Care Team Providers Care Assurance Assistant Name Role Phone Associate [employer], [place] Primary Care Provider Unava ilable Unavailable Chronic Care Management Unavaila ble Summary Purpose DataExchange Insurance Providers Payer name Policy type / Coverage type Covered democrat ID Effective Begin Date Effective End Date [facility] Commercial Insurance [id number] Unknown Unkn own Family History Family History data not found Medication Administered No Medication Administered data Reason For Visit No Reason For Visit data
[2024-09-01 10:47] LABS: Slide Review Reflex No
[2024-09-01 10:55] LABS: INR 1.06 (0.91-1.10); Prothrombin Time 14.7 Seconds
[2024-09-01 10:57] LABS: Albumin* 3.4 g/dL (3.3-5.0); Chloride* 101 mmol/L (96-114); Sodium* 136 mmol/L (135-149)
[2024-09-01 10:59] LABS: Blood Urea Nitrogen* 11 mg/dL (7-30); Creatinine* 0.8 mg/dL (0.5-1.5); Estimated Glomerular Filt Rate 81 ml/min
[2024-09-01 11:00] LABS: Alanine Aminotransferase* 14 U/L (4-35); Alkaline Phosphatase* 45 U/L (40-150); Anion Gap 3 mEq/L (7-15); Aspartate Amino Transferase* 21 U/L (12-35); Bilirubin Direct* 0.1 mg/dL (0.0-0.5); Bilirubin Total* 0.4 mg/dL (0.1-1.5); Calcium* 8.8 mg/dL (8.4-10.6); Carbon Dioxide* 32 mmol/L (20-32); Glucose* 118 mg/dL (60-115); Total Protein* 5.9 g/dL (6.0-8.3)
[2024-09-01 11:05] LABS: C Reactive Protein* < 0.5 mg/dL (0.5-1.0)
[2024-09-01 11:11] LABS: PCR FLU A Negative PCR FLU A (Negative); PCR FLU B Negative PCR FLU B (Negative); PCR RSV Negative PCR RSV (Negative); SARS PCR* Negative SARS-CoV-2 (Negative)
[2024-09-01 11:58] LABS: Appearance Urine Clear (Clear); Bilirubin Urine Negative (Negative); Blood Urine Negative (Negative); Color Urine Yellow (Yellow); Glucose Urine Negative (Negative); Ketones Urine Negative (Negative); Leukocyte Esterase Urine 1+ (Negative); Nitrite Urine Negative (Negative); Protein Urine Negative (Negative); Specific Gravity Urine 1.015 (1.000-1.030); Urobilinogen Urine 0.2 (0.2-1.0)
[2024-09-01 12:13] LABS: Bacteria Urine Moderate; RBC Urine 0-2 (0-2); Squamous Epithelial Cell Urine Few (None-Few)
== END 2024-09-01 13:35 | disposition home or self-care (01) ==
PROVIDERS: Emergency Provider Family Medicine; PCP Family Medicine
DX: I95.9 Hypotension, unspecified (principal); G90.A Postural orthostatic tachycardia syndrome [POTS]; E27.1 Primary adrenocortical insufficiency
CPT/HCPCS: 36415; 80048; 80076; 81001; 83605; 84484; 85025; 85610; 86140; 87040; 87086; 87186; 87631; 93005; 94761; 96374; 96375; 99284; 99285; J1720; J2405; J7030

== ENCOUNTER 2025-01-03 20:11 | Outpatient (CLI) | payer OTHER, SELFPAY | END 2025-01-03 20:12 | disposition home or self-care (01) | LOC: SLEEP 20:13 | PROVIDERS: PCP Family Medicine; Visit Provider Physician Assistant | DX: G47.33 Obstructive sleep apnea (adult) (pediatric) (principal) | CPT/HCPCS: 95811 ==

== ENCOUNTER 2025-01-26 15:22 | Emergency (ER) | payer OTHER, SELFPAY ==
[2025-01-26] VITALS (13 sets, daily range): BP systolic 94–122; BP diastolic 60–80; PULSE 73–97; RESP 16–20; TEMP 35.7; O2SAT 93–99; BMI 32.9
--- OUTSIDE RECORDS SUMMARY | 2025-01-26 15:27 | XMS_ITS | Encounter Summary ---
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
--- OUTSIDE RECORDS SUMMARY | 2025-01-26 15:27 | XMS_ITS | Encounter Summary ---
Author Organization [facility] Address [address] [place] [address] Care Team Providers Care Extrusion Utility Worker Name Role Phone Gaby Fleming MD Primary Care Provider [phone] Encounter Details Date Type Department Care Team (Latest Contact Info) Description 06/30/1997 Orders Only Arielle Caraballo, DO [address] [place] [address] Social History Tobacco Use Types Packs/Day Years [...] on filedocumented in this encounter Care Teams Extrusion Utility Worker Relationship Specialty Start Date End Date Gaby Fleming MD [address] [place] [address] PCP - General 01/29/06 documented as of this encounter
--- OUTSIDE RECORDS SUMMARY | 2025-01-26 15:27 | XMS_ITS | Clinical Summary ---
Author Organization [facility] Address [address] [place] [address] Care Team Providers Care Wirer Passenger Car Name Role Phone Gaby Fleming Unavailable [phone] [facility], Harvey Unavailable Holli Thomas DO Unavailable [phone] Angi Estevez DO Primary Care Provider [phone] Allergies Active Allergy Reactions Criticality Noted Date [...] Detail In Comments) Anaphylaxis High 08/04/2015 Hand monotyper used by someone else in her group therapy. Patient taken by ambulance to ED Medications FLINTSTONES MULTIVITAMIN ORALIndications:ritchie pplement Take 1 tablet. by mouth once daily. Active inhalational spacing deviceIndications: Moderate persistent asthma, unspecified whether complicated (HC) For home use. 1 Device 09/01/19 Active cevimeline (EVOXAC) 30 mg capsuleIndications :dry mouth Take 30 mg by mouth three times daily. 0 10/19/19 22 Active Diaper,Brief, Adult,DisposableIn dications:Continuo us leakage of urine For home use. 3 briefs per day. 84 Each 2 04/03/19 Active venlafaxine (EFFEXOR XR) 150 mg Extended-Release capsule Take 300 mg by mouth once daily with a meal. 04/24/19 Active LORazepam (ATIVAN) 0.5 mg tab Take 0.5 mg by mouth once daily if needed. 08/29/19 Active divalproex sprinkles (DEPAKOTE SPRINKLES) 125 mg capsuleIndications :mood disorder Take 4 Capsules (500 mg) by mouth two times daily. 180 Capsule 3 09/10/19 Active durable medical equipment (DME)Indications:I mbalance,Class 1 obesity without serious comorbidity with body mass index (BMI) of 32.0 to 32.9 in adult, unspecified obesity type Shoe horn 1 Each 10/08/19 Active miscellaneous medical supply (Blood Pressure Cuff) miscIndications:Hy potension, unspecified hypotension type As directed. 1 unit 10/08/19 Active hydrocortisone (CORTEF) 5 mg tablet Take [...] two times daily. 3 Each 3 09/18/19 Active albuterol HFA (PRO-AIR; VENTOLIN; PROVENTIL) 90 mcg/actuation inhalerIndications :acute asthma attack Inhale 2 Puffs by mouth every 4 hours if needed for Shortness of Breath 1st choice or Wheezing 1st choice. 1 Each 11 09/18/19 Active durable medical equipment (DME)Indications:P ostural dizziness with near syncope,Tachycardi a One pair of compression stockings, knee high 1 Each 04/09/20 25 Active calcium carbonate-vitamin D3 (600 mg-400 unit) 600 mg-10 mcg (400 unit) tabletIndications: Age-related osteoporosis with current pathological fracture with delayed healing Take 1 Tablet by mouth two times daily with meals. 200 Tablet 4 07/08/19 25 Active metoprolol succinate 25 mg Sustained-Release tabletIndications: Sinus tachycardia Take 0.5 Tablets (12.5 mg) by mouth once daily. 45 Tablet 3 08/12/19 25 Active ondansetron 4 mg disintegrating tabletIndications: [...] colonoscopy appointment. 4000 mL 08/28/19 25 Active CaneIndications:Po stural dizziness with near syncope Wide Base Quad Cane for home use. For 99 1 Each 10/16/19 25 Active Grab BarIndications:Pos tural dizziness with near syncope As directed. 1 Each 10/19/19 25 Active Walker - 4 wheelsIndications: Postural dizziness with near syncope For home use. Length of need: 99 1 Each 10/19/19 25 Active dextroamphetamine- amphetamine (ADDERALL) 10 mg tablet Take 1 Tablet by mouth once daily. 10/27/19 25 Active omeprazole (PRILOSEC) 40 mg Delayed-Release capsuleIndications :Gastroesophageal reflux disease without esophagitis Take 1 Capsule (40 mg) by mouth once daily before a meal. 90 Capsule 2 11/25/19 25 Active cholestyramine-suc marva 4 G per scoop (QUESTRAN) 4 gram powderIndications: Diarrhea, unspecified type Mix 1 Packet in liquid then take by mouth two times daily. 60 Packet 11 12/10/19 25 Active loperamide (IMODIUM) 2 mg capsuleIndications :Chronic diarrhea Take 2 mg three times daily for diarrhea. MAX 16MG IN 24HRS 270 Capsule 1 12/14/19 25 Active montelukast (Singulair) 10 mg tabletIndications: maintenance therapy for asthma Take 1 Tablet (10 mg) by mouth at bedtime. 90 Tablet 12/30/19 25 Active dicyclomine (BENTYL) 10 mg capsuleIndications :irritable bowel syndrome Take 1 Capsule (10 mg) by mouth every 6 hours if needed (abdominal cramping/diarrh ea). 90 Capsule 2 12/30/19 25 Active mirtazapine (REMERON) 7.5 mg tabletIndications: Chronic insomnia Take 1 Tablet (7.5 mg) by mouth at bedtime. Take 10 hours before planning on waking up 30 Tablet 5 01/07/20 25 Active CPAPIndications:OS A (obstructive sleep apnea) RESMED CPAP (E0601) machine for home use at pressure: 9 cmw, Choice of mask (A7030 or A7034) w/full face cushion (A7031) x1/mo, nasal cushion (A7032) x2/mo, or nasal pillows (A7033) x 2/mo; Length of Need: 99 months; Frequency of use: Daily 1 Each 11 01/07/20 25 Active dicyclomine (BENTYL) 10 mg capsuleIndications :irritable bowel syndrome Take 1 Capsule (10 mg) by mouth every 6 hours if needed (abdominal cramping/diarrh ea). 90 Capsule 2 02/27/20 23 025 Discontin ued(Reord er (E-cancel not sent)) [...] symptoms 10/18/2021 Overview (10/18/2021): Diagnosed, managed at [facility] [place]. Formerly known as conversion disorder. Tinnitus, bilateral [...] insufficiency; following with Dr. Ronna Tang ([facility]) Pap smear for cervical cancer screening 04/30/2022 [...] Encounters Date Type Department Care Team Description 01/21/[address] [address] Patricia Simental AuD Hearing Aid (Medical clearance) 01/20/2025 1:30 PM CDT Office Visit [address] [address] Patricia Simental AuD Hearing Aid (JONES consult) 01/19/2025 8:04 AM CDT - 01/19/2025 11:59 PM CDT Hospital Encounter [facility] [address] [place] [address] Carmen Morales PA Helms, Colleen G, PT 01/19/2025 Travel 01/15/2025 Travel 01/06/2025 3:30 PM CDT Office Visit [address] [address] Carmen Morales PA Consult (Dizziness) 01/06/2025 2:30 PM CDT Office Visit [address] [address] Patricia Simental AuD Hearing Problem (ENT audio) 01/06/2025 11:00 AM CDT Office Visit [facility] [address] [facility] [place] [address] Harlan Meier MD Sleep Follow-up (Sleep study/Cpap is broken not working x4 days) 01/06/2025 Travel 01/04/2025 Travel 01/03/2025 11:00 AM CDT Orders Only [facility] [address] [facility] [place] [address] Lab, [place] Lab 01/03/2025 10:10 AM CDT E-Visit [facility] [address] [place] [address] Sir Estevezi Netta, DO eVisit for Urinary Tract Infection 01/03/2025 Orders Only [facility] Scanner 1 scan: (1-Ord) ASHOK, TITRATION PSG REPORT, 01/03/2025 01/03/2025 Orders Only [facility] Scanner 1 scan: (1-Ord) GLADIS THOMSON, PSG REPORT FINAL, 01/03/2025 01/03/2025 E-Visit [facility] [address] [place] [address] Angi Estevez Netta, DO Probable UTI 01/02/2025 Travel 12/31/2024 Telephone [facility] [address] [place] [address] Harlan Meier MD Testing (SCHEDULED?) 12/29/2024 Refill [facility] [address] [place] [address] Angi Estevez, DO Refill Request (dicyclomine (BENTYL) 10 mg capsule) 12/22/2024 Refill [facility] [address] [facility] [address] [place] [phone] Victoriano Coello, DO Refill Request (montelukast (Singulair) 10 mg tablet/) 12/11/2024 Refill [facility] [address] [place] [address] Angi Estevez, DO Refill Request (Loperamide) 12/09/2024 2:00 PM CDT Office Visit [facility] [address] [place] [address] Yony Gao MD Follow Up (Diarrhea continues, new POTS diagnosis) 12/09/2024 Travel 12/04/2024 Travel 12/03/2024 10:30 AM CDT Office Visit [facility] [address] [place] [address] Harlan Meier MD Sleep Consult (cpap) 12/03/2024 Travel 11/24/2024 Telephone [facility] [address] [place] [address] Angi Estevez DO Refill Request (omeprazole 40 mg Delayed-Release capsule /) 11/16/2024 2:00 PM CDT Office Visit [facility] [address] [facility] [address] Vielka Meeks MD Follow Up (Follow up lightheadedness, sinus tachycardia ) 11/16/2024 Travel 11/11/2024 Travel from Last 3 Months Immunizations Immunization Administration Dates Next Due COVID-19 VACCINE SPIKEVAX (M ODERNA 50MCG/0.5ML) 12YO+ PFS 08/25/2024,01/21/2023 COVID-19 vaccine (Pfizer-Bio NTech 30mcg/0.3mL) 12YO+ BIVALENT PF, MDV 01/18/2022 COVID-19 vaccine (Pfizer-Bio NTech 30mcg/0.3mL) 12YO+ SANTI-SUCROSE PF, MDV 09/15/2021 COVID-19 vaccine (Pfizer-Bio NTech 30mcg/0.3mL) PF, MDV 09/15/2021,01/01/2021,05/09/2020,2020 DT (Age < 7 years) 10/22/1982 DTaP 09/28/2014 Dtap-5 Pertussis Antigens 09/28/2014 HepA-HepB (Twinrix) 01/17/2016,06/01/2002,2001 Influenza Virus, Unspecified 12/29/2016,01/10/19 98,02/01/1997 Influenza, IIV3 (Age >=3 years) 12/30/19 18,12/09/2017,12/06/2015,2014,12/07/2013,12/16/2012,01/10/2012,1 ,01/09/2010,12/29/2008, 008,01/09/2007,01/15/2006,01/11/2005,,02/02/2003,02/04/2002,02/05/20,02/12/2000,01/18/1999,01/10/1998,06/1996 Influenza, IIV4 01/18/2022,,12/09/2019,2018,12/09/2017,12/06/2015,12/22/2014,0 12/07/2013 Influenza, IIV4 (=>6mos) [...] or isolated from those around you? 0 09/03/2024 Financial Resource Strain Answer Date R ecorded Difficulty of Paying Living Expenses 3 09/03/2024 Difficulty of Paying Living Expenses Not on file 09/03/2024 Food Insecurity Answer Date Recorded Do you worry your food will run out before you are able to buy more? 2 09/03/2024 Transportation Needs Answer Date Record ed Does lack of transportation keep you from medica l appointments? 1 09/03/2024 Does lack of transportation keep you from work, meetings or getting things that you need? 1 09/03/2024 Housing Stability Answer Date Recorded What is your housing situation today? 1 09/03/2024 Utilities Answer Date Recorded Do you have trouble paying f or utilities (for example, heat, electricity, water, phone)? 1 09/03/2024 Comments No Sex and Gender Information Value Date Recorded Sex Assigned at Female 11/19/2021 5:38 PM CDT Legal Sex Female 7:01 AM ONCOLOGY REP Gender Identity Female 11/19/2021 5:38 PM CDT Sexual Orientation Straight 11/19/2021 5: 38 PM CDT Obstetrics History Para Term AB IAB SAB Ectopic Multiple Livin g Live Births 0 0 0 0 0 0 0 0 Last Filed Vital Signs Vital Sign Reading Time Taken Comments Blood Pressure 124/70 01/19/2025 9:01 AM CDT Pulse 103 01/19/2025 9:01 AM CDT sitti ng Temperature 36.6 C (97.9 F) 09/03/2024 11:12 AM CDT Respiratory Rate 18 09/18/2023 11:04 AM CDT Oxygen Saturation 97% 01/19/2025 9:01 AM CDT Inhaled Oxygen Concentration - - Weight 87.5 kg (193 lb) 01/06/2025 10:51 AM CDT Height 158.5 cm (5' 2.4) 08/25/2024 1:07 PM CDT Body Mass Index 34.85 08/25/2024 1:07 PM CDT Plan of Treatment Upcoming Encounters Date Type Department Care Team (Late st Contact Info) Description 02/03/2025 12:45 PM ONCOLOGY REP Office Visit [facility] [address] [place], [place] [id number] Victoriano Coello, DO [address] [address] 02/04/2025 10:30 AM ONCOLOGY REP Office Visit [facility] [address] [place] [address] Patricia Simental, AuD [address] [place] [address] 02/08/2025 10:10 AM ONCOLOGY REP Office Visit [facility] [address] [place] [address] Herb Angichelsy Chadwick DO [address] [place] [address] 02/25/2025 12:00 PM ONCOLOGY REP Office Visit [facility] [address] [place] [address] [address], AuD [address] [place] [address] 05/17/2025 11:30 AM ONCOLOGY REP Office Visit [facility] [address] [place] [address] Harlan Meier MD [address] [place] [address] Scheduled Procedures Name Priority Associated Diagnoses Date/Ti me SURGICAL PROCEDURE (TYPE PROCEDURE DESCRIPTION BELOW) Encounter for screening colonoscopy Health Maintenance Due Date Last Done Comments RSV vaccine for adults or (1 - Risk 60-74 years 1-dose series) 2017 Colonoscopy through age 75 01/08/202401/07 (Completed outside of [facility]) Mammogram for age 45-75 02/28/2024 02/28/20 23, 12/24/2021, 12/29/2020 (Completed outside of [facility]) Influenza Vaccine (#1) 2024 3, 01/18/2022, 12/23/2020, Additional history exists BMI (ht [...] series for 19+ Completed 01/16, 06/01/2002, 12/25/2001 Zoster (shingles) series for age 50+ Completed 09/15/2021, 07/04/2021 Hepatitis C screening for ag e 18-79 Completed 10/18/2021 Pneumococcal series for age 50+ Completed , 02/07/2012 DEXA/DXA scan for age 65+ Completed 02/27/2023 Medical Devices Implanted Type Area Animal Caretaker Supervisor Device Identifier Shelf Expiration Date Model / Serial / Lot Mesh Hiatal 7x10cm Bio-A - [id number] Implanted:Qty: 1 on 01/22/2022 by Tamir Kimbrough ra, MD at [facility] N/A: Abdomen W [place] 09/17/2024 [id number] / / [id number] Procedures Procedure Name Priority Date/Time Associated Diagnosis Comments HEARING AID MEDICAL CLEARANCE Routine 01/21/2025 12:27 PM CDT Sensorineural hearing loss, bilateral URINALYSIS MICROSCOPIC Routine 01/03/2025 11:08 AM CDT UTI symptoms URINE CULTURE Routine 01/03/2025 11:08 AM CDT UTI symptoms URINALYSIS MACROSCOPIC - [facility] ONLY POC DIP ([facility]) Routine 01/03/2025 11:08 AM CDT UTI symptoms SCAN-SLEEP STUDY 01/03/2025 12:0 0 AM CDT SCAN-SLEEP STUDY 01/03/2025 12:0 0 AM CDT LIPID PANEL W REFLEX MEASURED LDL Routine 08/25/2024 2:04 PM CDT Screening cholesterol level Elevated triglycerides with high cholesterol XR DXA BONE DENSITY 2 SITES AXIAL Routine 02/27/2023 11:35 AM ONCOLOGY REP Postmenopausal XR MAMMO PATIENCE BILAT SCREEN Routine 02/27/2023 11:12 AM ONCOLOGY REP Visit for screening mammogram ANTI HCV Routine 10/18/2021 12:14 PM CDT Need for hepatitis C screening test from Last 3 Months or Most Recently Relevant to Health Maintenance Results * (ABNORMAL) POCT Urinalysis Dipstick Only [[id number]] (01/03/2025 11:08 AM CDT) SPECIFIC GRAVITY 1.025 1.001 - 1.035 01/03/2025 4:49 PM CDT [facility] PROTEIN NEGATIVE NEGATIVE 01/03/2025 4:49 PM CDT [facility] GLUCOSE NEGATIVE NEGATIVE 01/03/2025 4:49 PM CDT [facility] KETONES NEGATIVE NEGATIVE 01/03/2025 4:49 PM CDT [facility] BILIRUBIN NEGATIVE NEGATIVE 01/03/2025 4:49 PM CDT [facility] OCCULT BLOOD 2+(A) NEGATIVE 01/03/2025 4:49 PM CDT [facility] NITRITE NEGATIVE NEGATIVE 01/03/2025 4:49 PM CDT [facility] PH 6.5 5.0 - 8.0 01/03/2025 4:49 PM CDT [facility] LEUKOCYTE ESTERASE TRACE(A) NEGATIVE 01/03/2025 4:49 PM CDT [facility] Urine URINE SPECIMEN / Unknown Non-Blood / Unknown 01/03/2025 11:08 AM CDT 01/03/2025 11:08 AM CDT us Angi Estevez DO URINE Final Result [facility] [address] [place] [address], [place] [phone] [facility] [address] [place] [address], [place] [phone] * (ABNORMAL) URINALYSIS MICROSCOPIC [45606.1] - routine (01/03/2025 11:08 AM CDT) RBC 0-2 0-2, None Seen /HPF 01/03/2025 4:32 PM CDT [facility] WBC 11-25(A) 0-2, 3-5, None Seen /HPF 01/03/2025 4:32 PM CDT [facility] BACTERIA None Seen None Seen, Rare, Few Bacteria/ HPF 01/03/2025 4:32 PM CDT [facility] EPITHELIAL CELLS None Seen None Seen, Few Epi/HPF 01/03/2025 4:32 PM CDT [facility] HYALINE CASTS 0-2 0-2, 3-5 /LPF 01/03/2025 4:32 PM CDT [facility] Urine URINE SPECIMEN / Unknown Non-Blood / Unknown 01/03/2025 11:08 AM CDT 01/03/2025 11:08 AM CDT Angi MC2 DO URINE Final Result Performing Organization Address City/[facility]/ZIP Co de Phone Number [facility] [address] [place] [address], * URINE CULTURE [[id number]] (01/03/2025 11:08 AM CDT) CULTURE No growth (<1,000 CFU/mL) 01/04/2025 3:11 PM CDT [facility] Urine URINE SPECIMEN / Unknown Non-Blood / Unknown 01/03/2025 11:08 AM CDT 01/03/2025 11:08 AM CDT Angi Netta Lewqra DO MICROBIOLOGY Final Result Performing Organization Address City/[facility]/ZIP Co de Phone Number [facility] [address] [place] [address], * SCAN-SLEEP STUDY (01/03/2025 12:00 AM CDT) us Scanner OTHER Final Result * SCAN-SLEEP STUDY (01/03/2025 12:00 AM CDT) us Scanner OTHER Final Result * (ABNORMAL) LIPID PANEL W REFLEX MEASURED LDL (08/25/2024 2:04 PM CDT) CHOLESTEROL, TOTAL 196 <200 mg/dL [facility] HDL CHOLESTEROL 46(L) > OR = 50 mg/dL [facility] TRIGLYCERIDES 212(H) <150 mg/dL [facility] Comment: If a non-fasting specimen was collected, consider repeat triglyceride testing on a fasting specimen if clinically indicated. Mariah et al. J. of Clin. Lipidol. 2015;9:129-169. LDL-CHOLESTEROL 117(H) mg/dL (calc) [facility] Comment: Reference range: <100 Desirable range <100 mg/dL for primary prevention; <70 mg/dL for patients with CHD or diabetic patients with > or = 2 CHD risk factors. LDL-C is now calculated using the Yony-Christopher calculation, which is a validated novel method providing better accuracy than the Friedewald equation in the estimation of LDL-C. Yony SS et al. ZEYAD. 2013;310(19): 0001-0351 (http://education.[employer]/faq/XLZ512) CHOL/HDLC RATIO 4.3 <5.0 (calc) [facility] NON HDL CHOLESTEROL 150(H) <130 mg/dL (calc) [facility] Comment: For patients with diabetes plus 1 major ASCVD risk factor, treating to a non-HDL-C goal of <100 mg/dL (LDL-C of <70 mg/dL) is considered a therapeutic option. Blood BLOOD SPECIMEN / Unknown 08/25/2024 2:04 PM CDT 08/25/2024 2:05 PM CDT us Angi Estevez DO CHEMISTRY Final Result [facility] [address] [place] [address], [facility] [address] [place] [address] * (ABNORMAL) XR DXA BONE DENSITY 2 SITES AXIAL [36307.1] (02/27/2023 11:35 AM ONCOLOGY REP) Anatomical Region Laterality Modality Spine, HIPS, HIPL, HIPR Other Impressions 03/10/2023 7:43 AM ONCOLOGY REP Osteoporosis. RECOMMENDATIONS: The National Osteoporosis Foundation recommends [...] to assess therapeutic efficacy. Marisa Orozco PA-C [facility] 03/10/2023 Narrative 03/10/2023 7:43 AM ONCOLOGY REP For Patients: Results are automatically released to your [employer] account once available, in compliance with federal regulations. This means that you may see your results before your provider has had a chance to review them. Please allow 2-3 business days for your provider to comment on the results. XR DXA Bone Mineral Density (BMD) EXAM LOCATION: [address] [address] PATIENT NAME: Sophie Leon DATE OF : 1955 EXAM DATE: 02/27/2023 [...] two scanners are made by the same bass guitar teacher. PROCEDURE: Dual-energy x-ray absorptiometry performed with routine [...] 10-year probability of hip fracture: 13.0%. Angi Netta Tylerra DO DEXA Final Result * XR MAMMO PATIENCE BILAT SCREEN (02/27/2023 11:12 AM ONCOLOGY REP) Anatomical Region Laterality Modality BREASTS, Breast Left, Breast Right Bilateral Mammography Impressions 02/27/2023 2:01 PM ONCOLOGY REP There is no radiographic evidence for malignancy. Recommend annual mammograms. MAMMOGRAM ASSESSMENT: ACR 1 Negative PATIENTS: You will also receive a letter with your examination results in an easy to read format. If you have questions about your results, please contact your referring provider. Narrative 02/27/2023 2:01 PM ONCOLOGY REP For Patients: As a result of the Century Cures Act, medical imaging exams and procedure reports are released immediately into your electronic medical record. You may view this report before your referring provider. If you have questions, please contact your health care provider. XR MAMMO PATIENCE BILAT SCREEN [[id number]] CLINICAL HISTORY: This is an asymptomatic 67 y.o. patient. INDICATION FOR EXAM: Mammogram Screening. TECHNIQUE: CC & MLO views were obtained. This study was evaluated with the assistance of Computer-Aided Detection. Breast Tomosynthesis was used in interpretation. COMPARISON FILM: Yes 12/24/21 [facility] F[facility]: The breasts have scattered areas of fibroglandular density. There are no dominant masses, suspicious micro calcifications or areas of architectural distortion. Angi Netta Estevez DO MAMMO Final Result * ANTI HCV (10/18/2021 12:14 PM CDT) HEPATITIS C ANTIBODY Non-React fiona Non-React fiona 10/19/2021 3:38 AM CDT [facility] Comment:Antibodies to HCV no t detected; does not exclude the possibility of exposure to HCV. Blood BLOOD SPECIMEN / Unknown Venipuncture / Unknown 10/18/2021 12:14 PM CDT 10/18/2021 12:16 PM CDT us Betina BRANTLEY SEND OUTS Final Resu lt [facility] [address] [place] [address], [place] from Last 3 Months or Most Recently Relevant to Health Maintenance Insurance MEDICARE PART A HB ONLY [facility] Advance Directives Documents on File Type Date Recorded Patient Campaign Specialist Expl anation POLST 09/09/2022 POLST 03/13/2022 09/10/22 [...] 1:02 PM 03/17/2019 3:50 PM Care Teams Wirer Passenger Car Relationship Specialty Start Date End Date Angi [place] [address] PCP - General Family Practice 10/08/22 Gaby Fleming [facility] 10/26/14 [facility] [address] [place] [address] 06/12/22 Holli Thomas DO [address] [facility] [address] [place] [address] Internal Medicine 09/13/22
--- OUTSIDE RECORDS SUMMARY | 2025-01-26 15:27 | XMS_ITS | Encounter Summary ---
Author Organization [facility] Address [address] [place] [address] Care Team Providers Care Asset Management Coordinator Name Role Phone Gaby Fleming MD Primary Care Provider [phone] Encounter Details Date Type Department Care Team (Late st Contact Info) Description 12/10/2013 Scanned History [facility] [address] [place] [id number] Leanne Rutledge, HEAD OF MUSIC, [facility] Social History Tobacco Use Types Packs/Day Years [...] on filedocumented in this encounter Care Teams Asset Management Coordinator Relationship Specialty Start Date End Date Gaby Fleming MD [address] [place] [address] PCP - General 01/29/06 documented as of this encounter
--- OUTSIDE RECORDS SUMMARY | 2025-01-26 15:27 | XMS_ITS | Encounter Summary ---
Author Organization [facility] Address [address] [place] [address] Care Team Providers Care Contact Lens Curve Grinder Name Role Phone Gaby Fleming MD Primary Care Provider [phone] Encounter Details Date Type Department Care Team [...] on filedocumented in this encounter Care Teams Contact Lens Curve Grinder Relationship Specialty Start Date End Date Gaby Fleming MD [address] [place] [address] PCP - General 01/29/06 documented as of this encounter
--- OUTSIDE RECORDS SUMMARY | 2025-01-26 15:27 | XMS_ITS | Encounter Summary ---
Author Organization [facility] Address [address] [place] [address] Care Team Providers Care Sand Caster Apprentice Name Role Phone Gaby Fleming MD Primary Care Provider [phone] Encounter Details Date Type Department Care Team (Latest Contact Info) Description 06/06/1995 Orders Only [place] [address] Social History Tobacco Use Types Packs/Day Years [...] on filedocumented in this encounter Care Teams Sand Caster Apprentice Relationship Specialty Start Date End Date Gaby Fleming MD [address] [place] [address] PCP - General 01/29/06 documented as of this encounter
--- OUTSIDE RECORDS SUMMARY | 2025-01-26 15:27 | XMS_ITS | Encounter Summary ---
Author Organization [facility] Address [address] [place] [address] Care Team Providers Care Plastic Installer Name Role Phone Gaby Fleming MD Primary Care Provider [phone] Encounter Details Date Type Department Care Team [...] filedocumented in this encounter Care Teams Plastic Installer Relationship Specialty Start Date End Date Gaby Fleming MD [address] [place] [address] PCP - General 01/29/06 documented as of this encounter
--- OUTSIDE RECORDS SUMMARY | 2025-01-26 15:27 | XMS_ITS | Encounter Summary ---
Author Organization [facility] Address [address] [place] [address] Care Team Providers Care Studio Control Operator Name Role Phone Gaby Fleming MD Primary Care Provider [phone] Encounter Details Date Type Department Care Team [...] on filedocumented in this encounter Care Teams Studio Control Operator Relationship Specialty Start Date End Date Gaby Fleming MD [address] [place] [address] PCP - General 01/29/06 documented as of this encounter
--- OUTSIDE RECORDS SUMMARY | 2025-01-26 15:27 | XMS_ITS | Encounter Summary ---
Author Organization [facility] Address [address] [place] [address] Care Team Providers Care Artificial Plastic Eye Maker Name Role Phone Gaby Fleming MD Primary Care Provider +[phone] Encounter Details Date Type Department Care Team (Latest Contact Info) Description 06/09/2014 Consent for Procedure/Treatme nt [facility] [address] [place] [address] METHACHOLINE CHALLENGE TEST Social History Tobacco Use [...] on filedocumented in this encounter Care Teams Artificial Plastic Eye Maker Relationship Specialty Start Date End Date Gaby Fleming MD [address] [place] [address] PCP - General 01/29/06 documented as of this encounter
--- OUTSIDE RECORDS SUMMARY | 2025-01-26 15:27 | XMS_ITS | Encounter Summary ---
Author [facility] Address [address] [place] [address] Care Team Providers Care Tin Pot Operator Name Role Phone Gaby Fleming MD Primary Care Provider +[phone] Encounter Details Date Type Department Care Team [...] on filedocumented in this encounter Care Teams Tin Pot Operator Relationship Specialty Start Date End Date Gaby Fleming MD [address] [place] [address] PCP - General 01/29/06 documented as of this encounter
--- OUTSIDE RECORDS SUMMARY | 2025-01-26 15:27 | XMS_ITS | Encounter Summary ---
Author Organization Formerly [facility] Address [address] [place] [address] Care Team Providers Care Director Of Therapy Services Name Role Phone Gaby Fleming MD Primary Care Provider +[phone] Encounter Details Date Type Department Care Team (Latest Contact Info) Description 10/17/1996 Orders Only Rosetta Gramajo MD [address] [place] [address] Social History Tobacco Use Types Packs/Day Years [...] filedocumented in this encounter Care Teams Director Of Therapy Services Relationship Specialty Start Date End Date Gaby Fleming MD [address] [place] [address] PCP - General 01/29/06 documented as of this encounter
--- OUTSIDE RECORDS SUMMARY | 2025-01-26 15:27 | XMS_ITS | Encounter Summary ---
Author Organization [facility] Address [address] [place] [address] Care Team Providers Care Train Gate Attendant Name Role Phone Gaby Fleming MD Primary Care Provider +[phone] Encounter Details Date Type Department Care Team (Latest Contact Info) Description 01/05/1998 Orders Only Arielle Caraballo, DO [address] [place] [address] Social History Tobacco Use Types Packs/Day Years [...] on filedocumented in this encounter Care Teams Train Gate Attendant Relationship Specialty Start Date End Date Gaby Fleming MD [address] [place] [address] PCP - General 01/29/06 documented as of this encounter
--- OUTSIDE RECORDS SUMMARY | 2025-01-26 15:27 | XMS_ITS | Encounter Summary ---
Author Organization [facility] Address [address] [place] [address] Care Team Providers Care Jingle Writer Name Role Phone Gaby Fleming MD Primary Care Provider +[phone] Encounter Details Date Type Department Care Team (Late st Contact Info) Description 05/19/2014 Scanned History [facility] Psychiatry [address] [place] [address] Jaycob Ayala MD MHS-DISCHARGE PAPERWORK Social History [...] on filedocumented in this encounter Care Teams Jingle Writer Relationship Specialty Start Date End Date Gaby Fleming MD [address] [place] [address] PCP - General 01/29/06 documented as of this encounter
--- OUTSIDE RECORDS SUMMARY | 2025-01-26 15:27 | XMS_ITS | Encounter Summary ---
Author Organization [facility] Address [address] [place] [address] Care Team Providers Care Pizza Delivery Driver Name Role Phone None Reported, Pcp Primary Care Provider Unavail able Reason for Referral * Outpatient (Routine) - Closed Specialty Diagnoses / Procedures Referred By Horacio marino Referred To Contact Neurology Diagnoses Demyelinating Disease Central Nervous System (HCC) Gagan Vera M.D. Phone: tel: fax: [facility] Referral ID Status Reason Start Date Expiration Date Visits Re quested Visits Authorized [id number] Closed 07/30/2018 07/30/2019 1 1 Encounter Details Date Type Department Care Team (Latest Contact Info) Description 07/30/[address] [facility] [address] [place] [address] Gagan Vera M.D. [address] [place] [address] Demyelinating Disease Central Nervous System (HCC) (Primary Dx) Social History Tobacco Use Types Packs/Day Years Used Date Smoking Tobacco: Never Assessed Comments Unknown Sex and Gender Information Value Date Recorded Sex Assigned at Female 01/02/2021 11:08 AM CDT Legal Sex Female 10:48 AM CDT Gender Identity Female 03/11/2019 12:39 PM MANAGER EXPRESS Sexual Orientation Straight 03/11/2019 12 :39 PM MANAGER EXPRESS documented as of this encounter Plan of [...] Pending 04/12/2021 04/12/2021 04/13/2021 6 :18 PM MANAGER EXPRESS documented as of this encounter Care Teams Pizza Delivery Driver Relationship Specialty Start Date End Date None Reported, Pcp PCP - General Family Medicine 01/26/24 documented as of this encounter
--- OUTSIDE RECORDS SUMMARY | 2025-01-26 15:27 | XMS_ITS | Encounter Summary ---
Author Organization [facility] Address [address] [place] [address] Care Team Providers Care Vice President Of Compliance Name Role Phone Gaby Fleming MD Primary Care Provider [phone] Encounter Details Date Type Department Care Team [...] on filedocumented in this encounter Care Teams Vice President Of Compliance Relationship Specialty Start Date End Date Gaby Fleming MD [address] [place] [address] PCP - General 01/29/06 documented as of this encounter
--- OUTSIDE RECORDS SUMMARY | 2025-01-26 15:27 | XMS_ITS | Encounter Summary ---
Author Organization [facility] Address [address] [place] [address] Care Team Providers Care Coil Finisher Name Role Phone Gaby Fleming MD Primary Care Provider [phone] Encounter Details Date Type Department Care Team (Late st Contact Info) Description 04/22/2014 Consent for Procedure/Treatme nt [facility] INFORMED CONSENT NEUROLEPTIC MEDICATIONS Social History Tobacco [...] on file documented as of this encounter Mental Status * Question Answer Entry Date Author Level of Consciousness alert 04/23/2014 10:45 A M SUPERVISOR INVENTORY MERCHANDISING Billie Brooks, CARBON PAPER MACHINE OPERATOR documented in this encounter Plan of Treatment Not on file documented as of this encounter Visit Diagnoses Not on filedocumented in this encounter Care Teams Coil Finisher Relationship Specialty Start Date End Date Gaby Fleming MD [address] [place] [address] PCP - General 01/29/06 documented as of this encounter
--- OUTSIDE RECORDS SUMMARY | 2025-01-26 15:27 | XMS_ITS | Encounter Summary ---
Author Organization [facility] Address [address] [place] [address] Care Team Providers Care Camp Maintenance Supervisor Name Role Phone Gaby Fleming MD Primary Care Provider +[phone] Encounter Details Date Type Department Care Team (Latest Contact Info) Description 06/23/1997 Orders Only Terese Panda MD [facility] [place] [address] Social History Tobacco Use Types Packs/Day Years [...] on filedocumented in this encounter Care Teams Camp Maintenance Supervisor Relationship Specialty Start Date End Date Gaby Fleming MD [address] [place] [address] PCP - General 01/29/06 documented as of this encounter
--- OUTSIDE RECORDS SUMMARY | 2025-01-26 15:27 | XMS_ITS | Encounter Summary ---
Author [facility] Address [address] [place] [address] Care Team Providers Care Bladder Blower Name Role Phone Gaby Fleming MD Primary Care Provider [phone] Encounter Details Date Type Department Care Team (Late st Contact Info) Description 10/24/2014 Consent for Procedure/Treatme nt [facility] INFORMED [...] Entry Date Author Level of Consciousness alert 10/25/2014 5:11 PM CDT Amy Cárdenas RN documented in this encounter Plan of Treatment Not on file documented as of this encounter Visit Diagnoses Not on filedocumented in this encounter Care Teams Bladder Blower Relationship Specialty Start Date End Date Gaby Fleming MD [address] [facility] [address] [address] PCP - General 01/29/06 documented as of this encounter
--- OUTSIDE RECORDS SUMMARY | 2025-01-26 15:27 | XMS_ITS | Clinical Summary ---
Author Organization [facility] Address [address] [place] [address] Care Team Providers Care Hydrographer Name Role Phone None Reported, Pcp Primary Care Provider Unavail able Source Comments Patient records contain information from all sites at [facility]. For routine questions regarding patient records, call [phone] during business hours, M-F 8:00 AM - 5:00 PM Central Time. Record requests for emergency care only can be directed to [phone] at any time.[facility] Allergies Active Allergy Reactions Criticality Noted Date [...] bedtime. 05/20/19 21 Active miscellaneous medical supply [facility] CPAP machine for home use at pressure [...] f Cervix 09/12/2014 Overview (01/11/2021): 2010 NILM 2015 nilm, hpv negative PLAN: Cotest 08/2019 ICD [...] Encounters Date Type Department Care Team Description 10/27/2024 Refill Division of Endocrinology in [place], [place] [address] [place] [address] Ronna Tang M.D. Med Refill from Last 3 Months Immunizations Immunization Administration Dates Next Due SARS-COV-2 (COVID-19) - MODE RNA (12 YEARS AND OLDER) Fall Seasonal 01/26/2024 SARS-COV-2 (COVID-19) - PFIZ ER (Discontinued)(12 years or older) 05/09/2020,04/18/2020 Family History Medical History Relation Name Comments Alcohol abuse Brother Ed Learning disabilities Daughter 1 Amy FAS Learning disabilities Daughter 2 Jayne Autism Psychiatric Father scrooge Cancer Maternal Grandmother Roxanna [place] Stroke Maternal Grandmother Roxanna [place] Alcohol abuse Mother mom Liver disease Mother mom Lung cancer Mother's Brother Otoniel [place] Anxiety disorder Sister Delica Depression Sister Delica Alcohol abuse Son 1 que Asthma Son 1 que Genetic disorder Son 1 que Muckle Well s Rheumatoid arthritis (RA) Son 1 que ADD / ADHD Son 2 [place] Relation Name Status Comments [...] drink = 0.6 oz pur e alcohol) [facility] Utilities Answer Date Recorded In the past 12 months has [facility] [employer] gas, oil, or water [employer] threatened to shut off services in your [...] by your partner or ex-partner? No 12/23/2021 Hunger Vital Sign Answer Date Recorded Within [...] PHQ-9 Total Score (max 27) 5 01/11 Housing Stability Answer Date Recorded What is your living situation today? [facility] 03/11/2024 Education Answer Date Recorded What is the highest level of school you have completed or the highest degree you have received? Master's degree (e.g., MA, MS, Tc, MEd, RAILROAD CONDUCTOR, ALEKSEY) 09/07/2018 Comments Unknown Sex and Gender Information Value Date Recorded Sex Assigned at Female 01/02/2021 11:08 AM CDT Legal Sex Female 10:48 AM CDT Gender Identity Female 03/11/2019 12:39 PM OUTPATIENT CLERK Sexual Orientation Straight 03/11/2019 12 :39 PM OUTPATIENT CLERK Last Filed Vital Signs Vital Sign Reading Time Taken Comments Blood Pressure 118/58 03/16/2024 10:38 AM OUTPATIENT CLERK Pulse 93 03/16/2024 10:38 AM OUTPATIENT CLERK Temperature 36.6 C (97.9 F) 01/08/2021 11:04 AM CDT Respiratory Rate - - Oxygen Saturation - - Inhaled Oxygen Concentration - - Weight 91.7 kg (202 lb 2.6 oz) 03/16/2024 10:38 AM OUTPATIENT CLERK Height 160 cm (5' 2.99) 03/16/2024 10:38 AM OUTPATIENT CLERK Body Mass Index 35.82 03/16/2024 10:38 AM OUTPATIENT CLERK Plan of Treatment Health Maintenance Due Date Last Done Comments CT Colonography 1957 Cologuard 1957 Colonoscopy 1957 Colorectal Cancer Screening 1957 Depression Monitoring (PHQ-9) 1957 FIT 1957 Hepatitis C Screening 1957 RSV vaccine - (32-36 weeks) or 50+ years (1 - Risk 50-74 years 1-dose series) 06/20/2007 Mammogram 02/28/2024 02/27/2023, 01/31, 12/24/2021, Additional history exists Depression Monitoring (PHQ-9 for quality tracking) 03/31/2024 Fall Risk Screen (Annual) 03/31/2024 COVID-19 Vaccine ( season) 2024 08/25/2024, 01/26/2024, 01/21/2023, Additional history exists Influenza Vaccine (#1) 2024 , 01/18/2022, 12/23/2020, Additional history exists Fasting Glucose for Diabetes [...] this topic Medical Devices Implanted Type Area Panel Machine Tender Device Identifier Shelf Expiration Date Model / Serial / Lot Hardware E.G. Pins/Screws/Ld s-03/31/2022 Implanted:03/31 (Quantity not on file) Hardware e.g. pins/screws/ro ds Right: Hip Description:Pins and Screws - Implantable Loop Recorder-2018 Implanted:03/17 (Quantity not on file) Implantable Loop Recorder Left: Chest [employer] [id number] / [id number] S / Insurance [employer] Care Teams Hydrographer Relationship Specialty Start Date End Date None Reported, Pcp PCP - General Family Medicine 01/26/24
--- OUTSIDE RECORDS SUMMARY | 2025-01-26 15:27 | XMS_ITS | Encounter Summary ---
Author Organization [facility] Address [address] [place] [address] Care Team Providers Care Certified Flight Instructor Name Role Phone Gaby Fleming MD Primary Care Provider [phone] Encounter Details Date Type Department Care Team (Latest Contact Info) Description 05/25/1998 Orders Only Karan Garcia MD [address] [place] [address] Social History Tobacco Use Types Packs/Day Years [...] filedocumented in this encounter Care Teams Certified Flight Instructor Relationship Specialty Start Date End Date Gaby Fleming MD [address] [place] [address] PCP - General 01/29/06 documented as of this encounter
--- OUTSIDE RECORDS SUMMARY | 2025-01-26 15:27 | XMS_ITS | Encounter Summary ---
Author Organization [facility] Address [address] [place] [address] Care Team Providers Care Cloth Beamer Name Role Phone Gaby Fleming MD Primary Care Provider [phone] Encounter Details Date Type Department Care Team (Late st Contact Info) Description 08/09/2011 Consent for Procedure/Treatme [facility] Department INFORMED CONSENT RECORD Social History [...] as of this encounter Progress Notes * [facility], PROVIDER - 08/09/2011 12:00 AM CDT documented in this encounter Plan of Treatment Not on file documented as of this encounter Visit Diagnoses Not on filedocumented in this encounter Care Teams Cloth Beamer Relationship Specialty Start Date End Date Gaby Fleming MD [address] [place] [address] PCP - General 01/29/06 documented as of this encounter
--- OUTSIDE RECORDS SUMMARY | 2025-01-26 15:27 | XMS_ITS | Encounter Summary ---
Author Organization [facility] Address [address] [place] [address] Care Team Providers Care Plastics Fitter Name Role Phone Gaby Fleming MD Primary Care Provider [phone] Encounter Details Date Type Department Care Team (Late st Contact Info) Description 02/22/2014 Scanned History External to External, [place] [address] [facility] Social History Tobacco Use [...] Gaby Fleming MD [address] [place] [address] PCP - General 01/29/06 documented as of this encounter
--- OUTSIDE RECORDS SUMMARY | 2025-01-26 15:27 | XMS_ITS | Encounter Summary ---
Author Organization [facility] Address [address] [place] [address] Care Team Providers Care Business Objects Consultant Name Role Phone Gaby Fleming MD Primary Care Provider [phone] Encounter Details Date Type Department Care Team (Late st Contact Info) Description 02/02/2016 Refill Order [facility] [address] [place] [id number] [place] [address] [place] [address] Social History Tobacco Use Types Packs/Day [...] Results * Hemoglobin, Blood (02/12/2016 2:43 PM RVDA MASTER CERTIFIED RV TECHNICIAN) Hemoglobin 12.7 12.0 - 16.0 g/dl [facility] 02/12/2016 2:43 PM RVDA MASTER CERTIFIED RV TECHNICIAN 02/12/2016 2:45 PM RVDA MASTER CERTIFIED RV TECHNICIAN Narrative [facility] - 02/12/2016 6:50 PM RVDA MASTER CERTIFIED RV TECHNICIAN Performed at [facility], [address] [place] [address] [place] Gaby Fleming MD LAB_1 Final Resul t [facility] [phone] documented in this encounter Visit Diagnoses Diagnosis Encounter for long-term (current) use of medications- Primary Encounter for long-term (current) use of other medications Acute gout of left knee, unspecified cause- Primary Encounter for long-term (current) use of medications Encounter for long-term (current) use of other medications documented in this encounter Care Teams Business Objects Consultant Relationship Specialty Start Date End Date Gaby Fleming MD [address] [place] [address] PCP - General 01/29/06 documented as of this encounter
--- OUTSIDE RECORDS SUMMARY | 2025-01-26 15:27 | XMS_ITS | Encounter Summary ---
Author Organization [facility] Address [address] [place] [address] Care Team Providers Care Conservation Coordinator Name Role Phone Gaby Fleming MD Primary Care Provider [phone] Encounter Details Date Type Department Care Team (Late st Contact Info) Description 05/13/2014 Emergency Room External to [facility], Provider EAR PAIN Social [...] on filedocumented in this encounter Care Teams Conservation Coordinator Relationship Specialty Start Date End Date Gaby Fleming MD [address] [place] [address] PCP - General 01/29/06 documented as of this encounter
--- OUTSIDE RECORDS SUMMARY | 2025-01-26 15:28 | XMS_ITS | Encounter Summary ---
Author Organization [facility] Address [address] [place] [address] Care Team Providers Care Supervisor Adult Education Name Role Phone Gaby Fleming MD Primary Care Provider [phone] Encounter Details Date Type Department Care Team (Latest Contact Info) Description 08/19/1994 Orders Only Myrna Armas [address] [address] Social History Tobacco Use Types Packs/Day Years [...] filedocumented in this encounter Care Teams Supervisor Adult Education Relationship Specialty Start Date End Date Gaby Fleming MD [address] [place] [address] PCP - General 01/29/06 documented as of this encounter
--- OUTSIDE RECORDS SUMMARY | 2025-01-26 15:28 | XMS_ITS | Encounter Summary ---
Author Organization [facility] Address [address] [place] [address] Care Team Providers Care Ocean Transportation Intermediary Name Role Phone Gaby Fleming MD Primary Care Provider [phone] Encounter Details Date Type Department Care Team [...] on filedocumented in this encounter Care Teams Ocean Transportation Intermediary Relationship Specialty Start Date End Date Gaby Fleming MD [address] [place] [address] PCP - General 01/29/06 documented as of this encounter
--- OUTSIDE RECORDS SUMMARY | 2025-01-26 15:28 | XMS_ITS | Encounter Summary ---
Author Organization [facility] Address [address] [place] [address] Care Team Providers Care Emergency Vehicle Technician Name Role Phone Gaby Fleming MD Primary Care Provider +[phone] Encounter Details Date Type Department Care Team [...] filedocumented in this encounter Care Teams Emergency Vehicle Technician Relationship Specialty Start Date End Date Gaby Fleming MD [address] [place] [address] PCP - General 01/29/06 documented as of this encounter
--- OUTSIDE RECORDS SUMMARY | 2025-01-26 15:28 | XMS_ITS | Encounter Summary ---
Author Organization [facility] Address [address] [place] [address] Care Team Providers Care Founder Ceo & President Name Role Phone Gaby Fleming MD Primary Care Provider +[phone] Encounter Details Date Type Department Care Team (Late st Contact Info) Description 04/06/2015 Correspondence None No Primary/Referring, Phy HME EQUIPMENT MID LEVEL BUSINESS ANALYST TICKET Social History Tobacco Use Types Packs/Day [...] on filedocumented in this encounter Care Teams Founder Ceo & President Relationship Specialty Start Date End Date Gaby Fleming MD [address] [place] [address] PCP - General 01/29/06 documented as of this encounter
--- OUTSIDE RECORDS SUMMARY | 2025-01-26 15:28 | XMS_ITS | Encounter Summary ---
Author Organization [facility] Address [address] [place] [address] Care Team Providers Care Machine Ironer Name Role Phone Gaby Fleming MD Primary Care Provider +[phone] Encounter Details Date Type Department Care Team (Latest Contact Info) Description 07/14/2014 Consent for Procedure/Treatme nt [facility] [address] [place] [address] INFORMED CONSENT URODYNAMIC TESTING Social History Tobacco [...] filedocumented in this encounter Care Teams Machine Ironer Relationship Specialty Start Date End Date Gaby Fleming MD [address] [place] [address] PCP - General 01/29/06 documented as of this encounter
--- OUTSIDE RECORDS SUMMARY | 2025-01-26 15:28 | XMS_ITS | Encounter Summary ---
Author Organization [facility] Address [address] [place] [address] Care Team Providers Care Machinery Dismantler Name Role Phone Gaby Fleming MD Primary Care Provider [phone] Encounter Details Date Type Department Care Team (Late st Contact Info) Description 03/27/2015 Correspondence None No Primary/Referring, Phy E EQUIPMENT CHARTER BUS DRIVER TICKET Social History Tobacco Use Types Packs/Day [...] on filedocumented in this encounter Care Teams Machinery Dismantler Relationship Specialty Start Date End Date Gaby Fleming MD [address] [place] [address] PCP - General 01/29/06 documented as of this encounter
--- OUTSIDE RECORDS SUMMARY | 2025-01-26 15:28 | XMS_ITS | Encounter Summary ---
Author Organization [facility] Address [address] [place] [address] Care Team Providers Care Infectious Disease Technician Name Role Phone Gaby Fleming MD Primary Care Provider +[phone] Encounter Details Date Type Department Care Team (Latest Contact Info) Description 11/22/2013 Correspondence [facility] Partial Hospitalization Program [address] [place] [address] [facility] [employer] Social History Tobacco Use [...] on filedocumented in this encounter Care Teams Infectious Disease Technician Relationship Specialty Start Date End Date Gaby Fleming MD [address] [place] [address] PCP - General 01/29/06 documented as of this encounter
--- OUTSIDE RECORDS SUMMARY | 2025-01-26 15:28 | XMS_ITS | Encounter Summary ---
Author Organization [facility] Address [address] [place] [address] Care Team Providers Care Data Input Clerk Name Role Phone Gaby Fleming MD Primary Care Provider [phone] Encounter Details Date Type Department Care Team [...] filedocumented in this encounter Care Teams Data Input Clerk Relationship Specialty Start Date End Date Gaby Fleming MD [address] [place] [address] PCP - General 01/29/06 documented as of this encounter
--- OUTSIDE RECORDS SUMMARY | 2025-01-26 15:28 | XMS_ITS | Encounter Summary ---
Author Organization [facility] Address [address] [place] [address] Care Team Providers Care Assembler Dielectric Heater Name Role Phone Gaby Fleming MD Primary Care Provider [phone] Encounter Details Date Type Department Care Team (Late st Contact Info) Description 09/18/2016 Correspondence [facility] [address] [facility]. [place], [place] [phone] Jason Barrett MD [address] [place], [place] [phone] [facility] Social History Tobacco [...] on filedocumented in this encounter Care Teams Assembler Dielectric Heater Relationship Specialty Start Date End Date Gaby Fleming MD [address] [place] [address] PCP - General 01/29/06 documented as of this encounter
--- OUTSIDE RECORDS SUMMARY | 2025-01-26 15:28 | XMS_ITS | Encounter Summary ---
Author Organization [facility] Address [address] [place] [address] Care Team Providers Care Mud Mixer Helper Name Role Phone Gaby Fleming MD Primary Care Provider [phone] Encounter Details Date Type Department Care Team (Late st Contact Info) Description 01/10/2015 Correspondence [facility] [address] [place] [id number] Jaycob Ayala MD LETTER Social History Tobacco [...] on filedocumented in this encounter Care Teams Mud Mixer Helper Relationship Specialty Start Date End Date Gaby Fleming MD [address] [place] [address] PCP - General 01/29/06 documented as of this encounter
--- OUTSIDE RECORDS SUMMARY | 2025-01-26 15:28 | XMS_ITS | Encounter Summary ---
Author Organization [facility] Address [address] [place] [address] Care Team Providers Care Market Research Assistant Name Role Phone Gaby Fleming MD Primary Care Provider [phone] Encounter Details Date Type Department Care Team (Late st Contact Info) Description 02/21/2015 Consent for Procedure/Treatme nt [facility] Department INFORMED CONSENT RECORD Social History Tobacco [...] as of this encounter Mental Status * Level of Consciousness Answer Entry Date Author alert 02/21/2015 5:06 PM METAL FILER Nora Caraballo RN * Question Answer Entry Date Author Mood/Behavior anxious 02/21/2015 4:10 PM METAL FILER Carmen Swartz RN documented in this encounter Plan of Treatment Not on file documented as of this encounter Visit Diagnoses Not on filedocumented in this encounter Care Teams Market Research Assistant Relationship Specialty Start Date End Date Gaby Fleming MD [address] [place] [address] PCP - General 01/29/06 documented as of this encounter
--- OUTSIDE RECORDS SUMMARY | 2025-01-26 15:28 | XMS_ITS | Encounter Summary ---
Author Organization [facility] Address [address] [place] [address] Care Team Providers Care Flight Surgeon Name Role Phone Gaby Fleming MD Primary Care Provider [phone] Encounter Details Date Type Department Care Team [...] on filedocumented in this encounter Care Teams Flight Surgeon Relationship Specialty Start Date End Date Gaby Fleming MD [address] [place] [address] PCP - General 01/29/06 documented as of this encounter
--- OUTSIDE RECORDS SUMMARY | 2025-01-26 15:28 | XMS_ITS | Encounter Summary ---
Author Organization [facility] Address [address] [place] [address] Care Team Providers Care Machine Lacer Name Role Phone Gaby Fleming MD Primary Care Provider [phone] Encounter Details Date Type Department Care Team [...] filedocumented in this encounter Care Teams Machine Lacer Relationship Specialty Start Date End Date Gaby Fleming MD [address] [place] [address] PCP - General 01/29/06 documented as of this encounter
--- OUTSIDE RECORDS SUMMARY | 2025-01-26 15:28 | XMS_ITS | Encounter Summary ---
Author Organization [facility] Address [address] [place] [address] Care Team Providers Care Director Global Intelligence Name Role Phone Gaby Fleming MD Primary Care Provider [phone] Encounter Details Date Type Department Care Team (Late st Contact Info) Description 07/31/2015 Correspondence External to External, [place] [address] LETTER SUCCESSFULL COMPLETED DBT TREATMENT Social History [...] filedocumented in this encounter Care Teams Director Global Intelligence Relationship Specialty Start Date End Date Gaby Fleming MD [address] [place] [address] PCP - General 01/29/06 documented as of this encounter
--- OUTSIDE RECORDS SUMMARY | 2025-01-26 15:28 | XMS_ITS | Encounter Summary ---
Author Organization [facility] Address [address] [place] [address] Care Team Providers Care Cotton Candy Maker Name Role Phone Gaby Fleming MD Primary Care Provider [phone] Encounter Details Date Type Department Care Team (Late st Contact Info) Description 03/28/2015 Correspondence [facility] [address] [place] [address] Gaby Fleming MD [address] [facility] [place] [address] DME EQUIPMENT PROOF OF DELIVERY Social [...] on filedocumented in this encounter Care Teams Cotton Candy Maker Relationship Specialty Start Date End Date Gaby Fleming MD [address] [place] [address] PCP - General 01/29/06 documented as of this encounter
--- OUTSIDE RECORDS SUMMARY | 2025-01-26 15:28 | XMS_ITS | Encounter Summary ---
Author Organization [facility] Address [address] [place] [address] Care Team Providers Care Coil Wrapper Name Role Phone Gaby Fleming MD Primary Care Provider [phone] Encounter Details Date Type Department Care Team (Late st Contact Info) Description 10/06/2014 Correspondence [facility] Radiology [address] [place] [id number] Radiology, Provider MRI SAFETY SHEET AND COMPATIBILITY [...] Status * Question Answer Entry Date Author General Motor Response purposeful/moveme nt localizing 10/06/2014 10:38 AM Jett Esparza RN * Question Answer Entry Date Author Mood/Behavior calm;cooperative 10/06/2014 10:3 8 AM Jett Esparza RN Level of Consciousness alert 5 10:38 AM Jett Esparza RN documented in this encounter Plan of Treatment Not on file documented as of this encounter Visit Diagnoses Not on filedocumented in this encounter Care Teams Coil Wrapper Relationship Specialty Start Date End Date Gaby Fleming MD [address] [place] [address] PCP - General 01/29/06 documented as of this encounter
--- OUTSIDE RECORDS SUMMARY | 2025-01-26 15:28 | XMS_ITS | Encounter Summary ---
Author Organization [facility] Address [address] [place] [address] Care Team Providers Care Behavioral Health Therapist Name Role Phone Gaby Fleming MD Primary Care Provider [phone] Encounter Details Date Type Department Care Team (Late st Contact Info) Description 02/11/2013 Correspondence None No Primary/Referring, [facility] HEALTH PROVIDER SCREENING FORM Social [...] this encounter Progress Notes * No Primary/Referring, [facility] - 02/11/2013 12:00 AM CST UNT SERVICE REPRESENTATIVE documented in this encounter Plan of Treatment Not on file documented as of this encounter Visit Diagnoses Not on filedocumented in this encounter Care Teams Behavioral Health Therapist Relationship Specialty Start Date End Date Gaby Fleming MD [address] [place] [address] PCP - General 01/29/06 documented as of this encounter
--- OUTSIDE RECORDS SUMMARY | 2025-01-26 15:28 | XMS_ITS | Encounter Summary ---
Author [facility] Address [address] [address] Care Team Providers Care Forestry Tree Pruner Name Role Phone Gaby Fleming MD Primary Care Provider [phone] Encounter Details Date Type Department Care Team [...] on filedocumented in this encounter Care Teams Forestry Tree Pruner Relationship Specialty Start Date End Date Gaby Fleming MD [address] [place] [address] PCP - General 01/29/06 documented as of this encounter
--- OUTSIDE RECORDS SUMMARY | 2025-01-26 15:28 | XMS_ITS | Encounter Summary ---
Author Organization [facility] Address [address] [place] [address] Care Team Providers Care Head Esthetician Name Role Phone Gaby Fleming MD Primary Care Provider [phone] Encounter Details Date Type Department Care Team (Late st Contact Info) Description 12/14/2015 Correspondence External to External, [place] [address] 2015 HEALTH PROVIDER SCREENING FORM Social History [...] on filedocumented in this encounter Care Teams Head Esthetician Relationship Specialty Start Date End Date Gaby Fleming MD [address] [place] [address] PCP - General 01/29/06 documented as of this encounter
--- OUTSIDE RECORDS SUMMARY | 2025-01-26 15:28 | XMS_ITS | Encounter Summary ---
Author Organization [facility] Address [address] [place] [address] Care Team Providers Care Home Health Manager Name Role Phone Gaby Fleming MD Primary Care Provider [phone] Encounter Details Date Type Department Care Team [...] on filedocumented in this encounter Care Teams Home Health Manager Relationship Specialty Start Date End Date Gaby Fleming MD [address] [place] [address] PCP - General 01/29/06 documented as of this encounter
--- OUTSIDE RECORDS SUMMARY | 2025-01-26 15:28 | XMS_ITS | Encounter Summary ---
Author Organization [facility] Address [address] [place] [address] Care Team Providers Care Nuclear Engineer Name Role Phone Gaby Fleming MD Primary Care Provider [phone] Encounter Details Date Type Department Care Team [...] on filedocumented in this encounter Care Teams Nuclear Engineer Relationship Specialty Start Date End Date Gaby Fleming MD [address] [place] [address] PCP - General 01/29/06 documented as of this encounter
--- OUTSIDE RECORDS SUMMARY | 2025-01-26 15:28 | XMS_ITS | Encounter Summary ---
Author Organization [facility] Address [address] [place] [address] Care Team Providers Care Dry Wall Finisher Name Role Phone Gaby Fleming MD Primary Care Provider [phone] Encounter Details Date Type Department Care Team (Late st Contact Info) Description 07/17/2015 Correspondence None No Primary/Referring, [facility] EQUIPMENT HEALTH DIAGNOSTICS TEACHER TICKET CPAP Social History Tobacco Use Types [...] on filedocumented in this encounter Care Teams Dry Wall Finisher Relationship Specialty Start Date End Date Gaby Fleming MD [address] [place] [address] PCP - General 01/29/06 documented as of this encounter
--- OUTSIDE RECORDS SUMMARY | 2025-01-26 15:28 | XMS_ITS | Clinical Summary ---
Author Organization [facility] Address [address] [place] [address]. [place] [address] Care Team Providers Care Drier Take Off Tender Name Role Phone No Ref-Primary, Physician Primary [...] on file Legal Sex Female 3:05 AM RENTAL CAR PORTER Gender Identity Not on file Sexual Orientation Not on file Last Filed Vital Signs Vital Sign Reading Time Taken Comments Blood Pressure 136/55 06/16/2017 12:08 PM CDT Pulse 85 03/16/2016 8:18 PM RENTAL CAR PORTER Temperature 36.7 C (98 F) 06/16/2017 12:08 [...] Advance Directives For more information, please contact: [phone] * Full Code (Latest Code Status on File) Date Activated Date Inactivated Comments 06/29/2014 3:33 PM 06/30/2014 12:26 PM * Full Code Date Activated Date Inactivated Comments 10/17/2013 3:44 PM 06/29/2014 3:33 PM * Full Code Date Activated Date Inactivated Comments 10/16/2013 2:27 PM 10/17/2013 3:44 PM Care Teams Drier Take Off Tender Relationship Specialty Start Date End Date No Ref-Primary, Physician PCP - General 06/16/17
--- OUTSIDE RECORDS SUMMARY | 2025-01-26 15:28 | XMS_ITS | Encounter Summary ---
Author Organization [facility] Address [address] [place] [address] Care Team Providers Care Chief Legal Officer Name Role Phone Gaby Fleming MD Primary Care Provider [phone] Encounter Details Date Type Department Care Team (Latest Contact Info) Description 08/15/1994 Orders Only Myrna Armas [address] [address] Social History Tobacco Use Types Packs/Day Years [...] on filedocumented in this encounter Care Teams Chief Legal Officer Relationship Specialty Start Date End Date Gaby Fleming MD [address] [place] [address] PCP - General 01/29/06 documented as of this encounter
--- OUTSIDE RECORDS SUMMARY | 2025-01-26 15:28 | XMS_ITS | Encounter Summary ---
Author Organization [facility] Address [address] [place] [address] Care Team Providers Care Electrical Equipment Tester Name Role Phone aGby lFeming MD Primary Care Provider [phone] Encounter Details Date Type Department Care Team (Late st Contact Info) Description 06/30/2014 Outside Hospital External to [facility] Provider DISCHARGE SUMMARY Social History [...] on filedocumented in this encounter Care Teams Electrical Equipment Tester Relationship Specialty Start Date End Date Gaby Fleming MD [address] [place] [address] PCP - General 01/29/06 documented as of this encounter
--- OUTSIDE RECORDS SUMMARY | 2025-01-26 15:28 | XMS_ITS | Encounter Summary ---
Author Organization [facility] Address [address] [place] [address] Care Team Providers Care Primer Charger Name Role Phone Gaby Fleming MD Primary Care Provider [phone] Encounter Details Date Type Department Care Team (Late st Contact Info) Description 07/17/2015 Correspondence None No Primary/Referring, Phy HME EQUIPMENT REQUIREMENTS ANALYST TICKET Social History Tobacco Use Types [...] on filedocumented in this encounter Care Teams Primer Charger Relationship Specialty Start Date End Date Gaby Fleming MD [address] [place] [address] PCP - General 01/29/06 documented as of this encounter
--- OUTSIDE RECORDS SUMMARY | 2025-01-26 15:28 | XMS_ITS | Encounter Summary ---
Author Organization [facility] Address [address] [place] [address] Care Team Providers Care Manager Of Manufacturing Name Role Phone Gaby Fleming MD Primary Care Provider [phone] Encounter Details Date Type Department Care Team (Late st Contact Info) Description 07/12/2014 Correspondence [facility] [address] [place] [address]. [place], [place] [phone] Carlos Barrow MD [address] [place], [place] [phone] UROGYNECOLOGY QUESTIONNAIRE Social History Tobacco Use Types [...] filedocumented in this encounter Care Teams Manager Of Manufacturing Relationship Specialty Start Date End Date Gaby Fleming MD [address] [place] [address] PCP - General 01/29/06 documented as of this encounter
--- OUTSIDE RECORDS SUMMARY | 2025-01-26 15:28 | XMS_ITS | Clinical Summary ---
Author Organization [facility] Address [address] [place] [address] Care Team Providers Care Park Activities Coordinator Name Role Phone Kat Fleming MD Primary Care Provider [phone] Source Comments You are receiving this document as you are listed as the primary care provider,follow-up provider, or the patient has been referred to you for consultation.This is in compliance with the Medicare and[facility] Healthcare System[facility] EHR Incentive Program,which states Providers who transition their patient to another setting of careor provider of care or refers their patient to another provider of care shouldprovide summary care record for each transition of care or referral. [facility] Allergies Active Allergy Reactions Criticality Noted Date Comments Iodinated Contrast Media Anaphylaxis High 05/26/2014 Pt given Epi Pen and sent to ER post injection CT Contrast with pre medication given to patient prior to Contrast injection. Nitrofurantoin Other Anaphylaxis High 06/29/2014 Hand health occupations teacher used by someone else in her group therapy. Patient taken by ambulance to ED Sulfa Antibiotics Medications NEEDLE, DISP, 18 G (BD DISP NEEDLES) [...] Tab by mouth daily. 90 Tab 3 03/15/20 17 Active Additional Information Patient not taking.Reported [...] opened 05/23/14, assigned to Radha Cantu RN, [facility], [place] [facility] @ [phone] Interactive with Asthma Disease Management Program, opt [...] deconditioning 07/26/2014 Vocal cord dysfunction 07/25/2014 CAREPLAN: [facility] CASE MANAGEMENT 2014 Overview (08/14/2016): Background: 11/04/14 Continue case open to Behavioral Health Case Manuel/Kim Spain @ [phone] Engaged in Complex Case Management: Santa Garcia RN [phone] Goals/Recommendations: CM will encourage patient to f/t [...] dated 09/08/2015. Also terminated by Deborah Campos [facility] (psychotherapy). Jaycob Ayala MD 09/08/2015, 3:15 PM Adjustment disorder with mix ed anxiety and depressed mood 08/04/2015 12/06/2015 Sensory integration disorder 07/26/2015 12/06/2015 Impaired mobility and ADLs 07/26/2015 0 12/06/2015 Severe episode of recurrent major depressive disorder, without psychotic features 06/09/201509/2015 Panic disorder without agoraphobia 04/20/2015 12/06/2015 [facility] Case Management 10/07/19 15 01/11/2016 Overview (10/06/2014): Background: Diagnosis: Major Depressive Disorder, Generalized Anxiety Disorder, PTSD, Panic Disorder and Dissociative Identity Disorder. Current situation: The member was recently hospitalized on a psych unit at [facility] from 10/02/14-10/06/14. She was discharged with psychotherapy and psychiatry appointments. Providers outside of [facility] The member sees two therapists at [facility]. Filipe Mcwilliams and Faith Vazquez. They can be reached at [phone]. Goals/Recommendations: Outpatient Behavioral Health Thermostat Machine TenderLocal Operator Information: Kim Sosa MA, [facility] [phone] Action Plan: The member was provided with [...] Disorder Panic disorder without agoraphobia 12/30/2013 02/03/2015 [facility] Behavioral Health Case Management 12/24/19 14 02/21/2014 Overview (12/23/2013): Background: Enrolled in [facility] [employer] Postage Machine Operator Program - coaching for Anxiety & Depression. Diagnosis: Dysthymia; Panic Disorder Current situation: Reports experiencing symptoms of depression and anxiety due to family stressors and significant challenges with maintaining a work/family balance. Patient has been participating in intensive mental health treatment since the middle of October. Patient s all 5 children live at home with her along with her elderly [id number]. Patient reports that she has experienced symptoms of depression for many years however, the anxiety is new for her and that she has challenges with her overall self-care. Providers outside of [facility] Currently attending [facility] at [facility] Goals/Recommendations: Outpatient Depression/Anxiety Medical Interpreter Contact Information: Garry Roman MS, [facility] [phone] Action Plan: To continue to work on improving overall self-care by developing a sleep schedule, engaging in physical activity, eating a balance diet, relaxation and participating in enjoyable activities. Medical Interpreter to provide health education information on overall self-care, stress relief, relaxation, anxiety, healthy eating as well as community support for anxiety/panic. Diverticulitis 10/16/2013 12/06/2015 Head revolving around 10/16/20132014 Nontoxic uninodular goiter 03/27/2004 1 04/05/2014 Immunizations Immunization Administration Dates Next Due DTaP 09/28/2014 Flu Vac (3+ yrs) 01/10/2012, 1,12/29/2008,2006,01/15/2006,01/11/2005,03/01/2004,1 04/04/2002,02/04/2002,02/04/2001, 000,01/18/1999 HepA-HepB ([place], 18+ yrs) 01/17/2016,06/02/19 03,12/25/2001 Influenza IIV4 (Quadrivalent ) 0.5mL (25875) 12/06/2015,12/22/2014,12/07/2013,2012 Influenza Vaccine (3+years) ([facility]) 01/09/2010,01/12/2008 Influenza, Unspecified Formulation 01/10/1998, PPSV23 [...] Additional history exists Colonoscopy 08/08/2021 08/09/2011, 08/09/2011 DTaP/Tdap/Td Vaccine (4 - Tdap) 10/26/2024 10/26/2014, 09/28/2014, 05/15/2010, Additional history exists COVID-19 Vaccine ( season) 2024 Influenza Vaccine (#1) 2024 6, 12/22/2014, 12/07/2013, Additional history exists RSV Vaccine (1 - 1-dose 75+ series) 2032 Cervical Cancer Screening Discontinued 2014, 02/11/2011, 02/11/2011, Additional history exists Hep C Screening (Preventive Services) Completed 12/06/2015, 02/07/2012 HepA Vaccine Aged Out 01/17/2016, 06/2002, 12/25/2001 No longer eligible based on [...] this topic Medical Devices Implanted Type Area Quarrying Manager Device Identifier Shelf Expiration Date Model / Serial / Lot Sling Advantage Mid-Urethral - [id number] Implanted:Qty: 1 on 02/21/2015 by Carlos Barrow MD at [facility] DEVICE N/A: V[employer] manufacturing plant controller 10/26/2017 [id number] / / [id number] Procedures Procedure Name Priority Date/Time Associated Diagnosis Comments LIPID PANEL & DIRECT LDL (IF NEEDED) Routine 03/19/2016 11:16 AM NEEDLE LOOM OPERATOR Pre-diabetes HEPATITIS C ANTIBODY, WITH REFLEX (ANTI-HCV) Routine 12/06/2015 9:36 AM CDT Preventative health care PAP TEST, ROUTINE Routine 09/06/2014 8:2 8 AM CDT Screening for cervical cancer MM MAMMOGRAM SCREENING BILAT W CAD Routine 04/11/2014 2:06 PM NEEDLE LOOM OPERATOR COLONOSCOPY Routine 08/09/2011 8:56 AM CDT Abn findings-GI tract from Last 3 Months or Most Recently Relevant to Health Maintenance Results * (ABNORMAL) Lipid Panel and Direct LDL(If Needed) (03/19/2016 11:16 AM NEEDLE LOOM OPERATOR) Hours Fasting 2 hours [facility] Cholesterol 179 0 - 199 mg/dl [facility] Triglyceride 161(H) 0 - 149 mg/dl [facility] HDL 40(L) >40 mg/dl [facility] LDL, Calc. 107 0 - 129 mg/dl [facility] Non HDL Chol, Calc 139 mg/dl [facility] 03/19/2016 11:1 6 AM NEEDLE LOOM OPERATOR 03/19/2016 11:17 AM NEEDLE LOOM OPERATOR Narrative [facility] - 03/19/2016 6:49 PM NEEDLE LOOM OPERATOR Performed at [facility], [address] [place], [place] [id number] us Kat Fleming MD LAB_1 Final Resul t Performing Organization Address [facility] Co de Phone Number [facility] [phone] * Hepatitis C Antibody, with Reflex (12/06/2015 9:36 AM CDT) Pathologist [facility] Anti-HCV Negative (Non Reactive) NEGNR [facility] Comment: Antibodies to HCV not detected. Does not exclude the possibility of exposure to HCV. 12/06/2015 9:36 AM CDT 12/06/2015 9:37 AM CDT Narrative [facility] - 12/06/2015 8:01 PM CDT Performed at [facility], [address] [place] [id number] Kat Fleming MD LAB_1 Final Resul t Performing Organization Address [facility] Co de Phone Number [facility] [phone] * PAP TEST, ROUTINE (09/06/2014 8:28 AM CDT) Pathologist [facility] Cytology, Pap (NOTE) Rn Observation Cytology Report Patient Name: SOPHIE CASTRO Taken: 09/06/2014 Received: 09/06/2014 Reported: 09/12/2014 Physician(s): KAT FLEMING ([id number]) Source of Specimen Pap Test, Routine Cervical/Endocervi zane: Specimen Adequacy Satisfactory for evaluation. Endocervical component present. Final Cytologic Interpretation/Res ult NEGATIVE FOR INTRAEPITHELIAL LESION OR MALIGNANCY (NILM) Other Cytologic Findings Atrophy Electronically Signed Out By ABDELRAHMAN Andrew (ASCP) ABDELRAHMAN Andrew (ASCP) Pap Smear History Date of Last Menstrual Period: Menopausal Microscopic Description Microscopic examination is performed. [facility] Department of Pathology [address] [place] [id number] [facility] 09/06/2014 8:28 AM CDT 09/06/2014 5:03 PM CDT Result [facility] Kat Fleming MD LAB_1 Final Resul t [facility] [phone] * MAMMOGRAM SCREENING BILATERAL (04/11/2014 2:06 PM NEEDLE LOOM OPERATOR) Anatomical Region Laterality Modality Breast Bilateral Mammography Narrative 04/12/2014 2:34 PM NEEDLE LOOM OPERATOR BILATERAL FULL FIELD DIGITAL SCREENING MAMMOGRAM Performed [...] RAD ZENA Final Resul t * COLONOSCOPY [[id number]] (08/09/2011 8:56 AM CDT) 08/09/2011 8:56 AM [...] previously scheduled. CPT(R) Code(s): --- Professional --- 88987, Colonoscopy, flexible, proximal to splenic flexure; diagnostic, with or without collection of specimen(s) by brushing or washing, with or without colon decompression (separate procedure) ICD9 Code(s): --- Professional --- 793.4, Nonspecific (abnormal) findings on radiological and other examination of gastrointestinal tract 562.10, Diverticulosis of colon (without mention of hemorrhage) CPT (R) 2011 [employer]. All Rights Reserved. The codes documented in this report are preliminary and upon sas programmer review may be revised to meet current [...] previously scheduled. CPT(R) Code(s): --- Professional --- 80009, Colonoscopy, flexible, proximal to splenic flexure; diagnostic, with or without collection of specimen(s) by brushing or washing, with or without colon decompression (separate procedure) ICD9 Code(s): --- Professional --- 793.4, Nonspecific (abnormal) findings on radiological and other examination of gastrointestinal tract 562.10, Diverticulosis of colon (without mention of hemorrhage) CPT (R) 2011 [employer]. All Rights Reserved. The codes documented in this report are preliminary and upon sas programmer review may be revised to meet current compliance requirements. Attending Participation: Ari Amanda MD 08/09/2011 9:21 AM Number of Addenda: 0 Note Initiated On: 08/09/2011 8:56 AM Ari Amanda MD DIGESTIVE CARE Final Result GI (PROVATION) [place], [place] from Last 3 Months or Most Recently Relevant to Health Maintenance Insurance [facility] MEDICARE Advance Directives * Full Code (Latest Code Status on File) Date Activated Date Inactivated Comments 10/24/2014 4:56 AM 10/26/2014 2:53 PM * Full Code Date Activated Date Inactivated Comments 10/03/2014 12:15 PM 10/06/2014 1:15 PM * Full Code Date Activated Date Inactivated Comments 04/22/2014 8:28 PM 04/28/2014 4:20 PM Care Teams Park Activities Coordinator Relationship Specialty Start Date End Date Kat Fleming MD [address] [place] [address] PCP - General 01/29/06
--- OUTSIDE RECORDS SUMMARY | 2025-01-26 15:28 | XMS_ITS | Encounter Summary ---
Author Organization [facility] Address [address] [place] [address] Care Team Providers Care Bus Greaser Name Role Phone Gaby Fleming MD Primary Care Provider [phone] Encounter Details Date Type Department Care Team (Late st Contact Info) Description 09/27/2016 Correspondence [facility] [address] [facility]. [place], [place] [phone] Jason Barrett MD [address] [place], [place] [phone] [employer] Social History Tobacco [...] on filedocumented in this encounter Care Teams Bus Greaser Relationship Specialty Start Date End Date Gaby Fleming MD [address] [place] [address] PCP - General 01/29/06 documented as of this encounter
--- OUTSIDE RECORDS SUMMARY | 2025-01-26 15:28 | XMS_ITS | Encounter Summary ---
Author Organization [facility] Address [address] [place] [address] Care Team Providers Care Marketing Recruiter Name Role Phone aGby Fleming MD Primary Care Provider [phone] Encounter Details Date Type Department Care Team (Late st Contact Info) Description 07/29/2014 Correspondence None No Primary/Referring, Phy EQUIPMENT FARM OPERATIONS MANAGER TICKET Social History Tobacco Use Types [...] on filedocumented in this encounter Care Teams Marketing Recruiter Relationship Specialty Start Date End Date Gaby Fleming MD [address] [place] [address] PCP - General 01/29/06 documented as of this encounter
--- OUTSIDE RECORDS SUMMARY | 2025-01-26 15:28 | XMS_ITS | Encounter Summary ---
Author Organization [facility] Address [address] [place] [address] Care Team Providers Care Rug Dyer Helper Name Role Phone Gaby Fleming MD Primary Care Provider [phone] Encounter Details Date Type Department Care Team [...] on filedocumented in this encounter Care Teams Rug Dyer Helper Relationship Specialty Start Date End Date Gaby Fleming MD [address] [place] [address] PCP - General 01/29/06 documented as of this encounter
--- NOTE | 2025-01-26 15:36 | ED.GENADULT ---
HPI - General Adult General Chief complaint: Fall/Minor Trauma Stated complaint: Fall Time Seen by Provider: 01/26/25 15:25 History of Present Illness HPI narrative: Pt reports she was leaving a [employer] alliance party and began to get lightheaded /fall while getting into car. Pt has hx of POTS and states this feels similar to prior POTS episodes. Pt did fall to the ground and complains of pain in left hip and left elbow. Pt denies hitting head or LOC from the fall. Pt appears A&O in triage. 69-year-old woman presenting to the emergency department via EMS following fall. Does have a history of POTS and she believes that similar to what occurred here. She had been a [employer] alliance party and was getting into a car with 1 ft in and 1 ft out and suddenly became lightheaded found herself falling backwards. She does not recall any palpitations or irregular heartbeats. No shortness of breath. Some combination of dizziness and lightheadedness. She believes she did black out momentarily; which again is not atypical. Was feeling well enough today to attend [employer] as a treatment bar made. She notes how she 3rd place in the [employer] competition and got a prize. When she fell she did strike her left elbow and left hip. Hip hurts probably more than the elbow. Elbow admittedly is improved. Her head. No neck or back pain. Orthostatics were done which were not exactly positive. Admittedly she is feeling better by this point. She only had trace lightheadedness during them. These symptoms can come on slowly and go away quickly. Related Data Home Medications ?Medication ?Instructions ?Recorded ?Confirmed loperamide 2 mg capsule 4 mg PO QID PRN 10/02/21 07/28/24 montelukast 10 mg tablet 10 mg PO HS 10/02/21 07/28/24 albuterol sulfate 90 mcg/actuation 2 puff inhalation Q4H PRN 06/07/22 07/28/24 aerosol inhaler cevimeline 30 mg capsule 1 cap PO TID 06/07/22 07/28/24 lorazepam 0.5 mg tablet 0.5 mg PO DAILY PRN 06/07/22 07/28/24 dicyclomine 10 mg capsule 10 mg PO Q6H PRN cramps 08/10/22 07/28/24 dextroamphetamine-amphetamine ER 1 cap PO DAILY 09/20/22 07/28/24 10 mg 24hr capsule,extend release divalproex 500 mg tablet,delayed 2,000 mg PO DAILY 09/20/22 07/28/24 release doxepin 10 mg capsule 10 mg PO DAILY 09/20/22 07/28/24 famotidine 40 mg tablet 40 mg PO HS 06/17/24 07/28/24 fluticasone 500 mcg-salmeterol 50 1 inh inhalation BID 06/17/24 07/28/24 mcg/dose blistr powdr for inhalation omeprazole 40 mg capsule,delayed 40 mg PO DAILY 06/17/24 07/28/24 release calcium 600 mg (as 1 tab PO BID 07/28/24 07/28/24 carbonate)-vitamin D3 10 mcg (400 unit) tablet metoprolol succinate 25 mg 25 mg PO DAILY 07/28/24 07/28/24 tablet,extended release 24 hr trazodone 150 mg tablet 75 mg PO HS 07/28/24 07/28/24 dextroamphetamine-amphetamine 10 1 tab PO DAILY 07/29/24 07/29/24 mg tablet guanfacine 1 mg tablet 1 mg PO QPM 07/29/24 07/29/24 Previous Rx's ?Medication ?Instructions ?Recorded azithromycin 250 mg tablet 250 mg PO DAILY 1 day #1 tab 07/31/24 codeine 10 mg-guaifenesin 100 mg/5 10 ml PO QID PRN 7 days #250 mL 07/31/24 mL oral liquid guaifenesin 600 mg tablet, 600 mg PO BID 14 days #28 tabs 07/31/24 extended release 12 hr (Mucinex) prednisone 20 mg tablet 20 mg PO DAILYWM 3 days #3 tabs 07/31/24 venlafaxine 75 mg capsule,extended 300 mg (4 x 75 mg) PO DAILY 30 07/31/24 release 24 hr days #60 caps Allergies Allergy/AdvReac Type Severity Reaction Status Date / Time nitrofurantoin Allergy Unknown Verified 06/25/24 10:04 Iodinated Contrast Media AdvReac Rash Verified 07/26/24 12:57 Sulfa (Sulfonamide AdvReac Rash Verified 07/26/24 12:57 Antibiotics) hand radar technician Allergy Severe Anaphylaxis Uncoded 06/17/24 12:31 Ioxaglate sodium Allergy Unknown Uncoded 06/17/24 12:31 Review of Systems Status of ROS: Reports: 6 or more systems reviewed and unremarkable except as noted in History and below PFSH [facility] Medical History UTI (urinary tract infection) ?N39.0 - Urinary tract infection, site not specified (ICD-10) Steroid long-term use Tear of medial meniscus of right knee ?S83.241A - Other tear of medial meniscus, current injury, right knee, initial encounter (ICD-10) Osteoarthritis of right knee ?M17.11 - Unilateral primary osteoarthritis, right knee (ICD-10) Irritable bowel syndrome ?K58.9 - Irritable bowel syndrome without diarrhea (ICD-10) Physical deconditioning ?R53.81 - Other malaise (ICD-10) Chronic diarrhea ?K52.9 - Noninfective gastroenteritis and colitis, unspecified (ICD-10) Anxiety ?F41.9 - Anxiety disorder, unspecified (ICD-10) History of prediabetes ?Z87.898 - Personal history of other specified conditions (ICD-10) History of major depression ?Z86.59 - Personal history of other mental and behavioral disorders (ICD-10) Surgical History S/P ORIF (open reduction internal fixation) fracture (08/10/22) ?Z98.890 - Other specified postprocedural states (ICD-10) ?Z87.81 - Personal history of (healed) traumatic fracture (ICD-10) History of loop recorder (03/17/19) ?Z98.890 - Other specified postprocedural states (ICD-10) History of partial thyroidectomy (1999) ?E89.0 - Postprocedural hypothyroidism (ICD-10) History of cholecystectomy (1983) ?Z90.49 - Acquired absence of other specified parts of digestive tract (ICD-10) History of bladder suspension procedure (2014) ?Z98.890 - Other specified postprocedural states (ICD-10) ?Z87.448 - Personal history of other diseases of urinary system (ICD-10) Family History Mother Alcoholism Social History Narrative: Nonsmoker. Does not exercise. . 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 5 adult children. She lives with her daughter who has mental disability-?Autism What is your current living situation?: I presently have a place to live Problems where you live: no known problems Problems where you live details: n/a In the past 12 months, utilities in danger of being shut off: no In past 12 months, lack of transportation kept you from medical appts, meetings, work, or getting things needed for daily living: no In the past 12 mos, have been you worried that your food would run out before you had money to buy more?: never true In the past 12 mos, the food you bought just didn't last and you didn't have money to buy more?: never true Highest level of school completed/degree received: Master's degree Smoking Status: Never smoker Do you use any of these nicotine containing products: None Second hand tobacco smoke exposure: No How often do you have a drink containing alcohol: never AUDIT-C Alcohol total score: 0 Non-prescribed substance use: denies use Caffeine: No How often does anyone, including family, friends and others, physically hurt you: never How often does anyone, including family, friends and others, insult or talk down to you: never How often does anyone, including family, friends and others, threaten you with harm: never How often does anyone, including family, friends and others, scream or curse at you: never service: No Exam Narrative: Exam Narrative: Very pleasant. Fully alert. 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 Cranial nerves 2-12 intact. Pupils are 3 mm and equal. Head is atraumatic. Neck is supple nontender. Back nontender. Lungs clear. Heart in regular rate and rhythm without murmur. Abdomen is soft nontender. She is moving all extremities except for the left leg without difficulty. There is a light abrasion at the left elbow (prior injured) without erythema. Flexes and extends difficulty. Rotate without pain. Palpation over the left hip generally is tender. I do not see erythema or other evidence of trauma. She is able to with some discomfort externally internally rotate this against resistance as well as extend and flex at the hip. Const: Vital Signs, click to edit/add: Vital Signs - 24 hr 01/26/25 15:30 01/26/25 15:33 Temperature 96.3 F L Pulse Rate [Pulse Oximeter] 91 Pulse Rate [orthos tatic lying] 90 Pulse Rate [orthos tatic sitting] 91 Pulse Rate [orthos tatic standing] 97 Respiratory Rate 20 Blood Pressure [Le ft Upper Arm] 94/80 Blood Pressure [or thostatic lying] 94/80 Blood Pressure [or thostatic sitting] 122/79 Blood Pressure [or thostatic standing ] 105/71 Pulse Oximetry 99 Oxygen Delivery Me thod Room Air Documenting provider has reviewed patient's vital signs: yes Course Vital Signs Vital signs: Initial Vital Signs Temperature 96.3 F L 01/26/25 15:30 Temperature Source Temporal Artery Scan 01/26/25 15:30 Pulse Rate 91 01/26/25 15:30 Respiratory Rate 20 01/26/25 15:30 Blood Pressure 94/80 01/26/25 15:30 Blood Pressure Mean 84 01/26/25 15:30 Blood Pressure Position Supine 01/26/25 15:30 Pulse Oximetry 99 01/26/25 15:30 Oxygen Delivery Method Room Air 01/26/25 15:30 Vital Signs Temperature 96.3 F L 01/26/25 15:30 Pulse Rate 91 01/26/25 15:30 Respiratory Rate 20 01/26/25 15:30 Blood Pressure 94/80 01/26/25 15:30 Pulse Oximetry 99 01/26/25 15:30 Oxygen Delivery Method Room Air 01/26/25 15:30 Temperature 96.3 F L 01/26/25 15:30 Pulse Rate 90 01/26/25 15:33 Respiratory Rate 20 01/26/25 15:30 Blood Pressure 94/80 01/26/25 15:33 Pulse Oximetry 99 01/26/25 15:30 Oxygen Delivery Method Room Air 01/26/25 15:30 Medications Administered Medications: Discontinued Medications Generic Name Dose Route Start Last Admin Trade Name Freq PRN Reason Stop Dose Admin Sodium Chloride 1,000 mls @ 1,000 mls/hr 01/26/25 15:50 01/26/25 16:17 0.9 % Sodium Chloride 1000 Ml IV 01/26/25 16:49 1,000 mls/hr .Q1H ONE Administration Medical Decision Making MDM Narrative Medical decision making narrative: Does not appear to have sustained significant injury. Perhaps more important is why this happened. This could have been cardiogenic, arrhythmia/dysrhythmia. Possibly ischemic cardiovascular event. Most likely this is her usual pots. She feels that she is thirsty would benefit from hydration. Noted herself to be a little lightheaded with orthostatics that we did here. Admittedly her symptoms can come and go quickly. Since we are placing IV hydration also check chemistries. I do not appreciate evidence of CVA. Her preference is to attempt to ambulate following hydration before making decision on whether not image the left hip. I think the left hip/buttock is primarily contused EKGs WNL. Labs are reassuring. No events on healthcare marketer during time monitoring emergency department. Is able to get up ambulate in her usual manner with cane. Cries out ?nothing is broken! Safe to discharge to care of family. Medical Records Medical records reviewed: Yes I reviewed the patient's medical records Lab Data Lab results reviewed: Yes I reviewed the patient's lab results Labs: Lab Results 01/26/25 01/26/25 Range/Units 15:50 16:05 WBC 7.04 (4.50-11.00) K/uL RBC 3.79 L (4.00-5.20) m/uL Hgb 11.3 L (12.0-16.0) gm/dL Hct 34.8 (33.0-51.0) % MCV 92 (80-100) fL MCH 30 (26-34) pg MCHC 33 (32-36) gm/dL RDW Coeff of Quirino 12.7 (11.5-15.5) % Plt Count 260 (140-440) K/uL Neut % (Auto) 60.3 (42.0-72.0) % Lymph % (Auto) 28.6 (20-44) % Newton % (Auto) 8.4 (0.0-11.0) % Eos % (Auto) 1.3 (0.0-7.0) % Baso % (Auto) 0.4 (0.0-3.0) % Neut # (Auto) 4.25 (1.7-7.0) K/uL Lymph # (Auto) 2.01 (0.90-2.90) K/uL Newton # (Auto) 0.60 (0.00-0.90) K/UL Eos # (Auto) 0.09 (0.00-0.50) K/uL Baso # (Auto) 0.03 (0.00-0.30) K/uL Abs Immat Gran (auto) 0.07 (0.00-0.30) K/uL Imm/Tot Granulo (auto) 1.0 % Sodium 136 (135-149) mmol/L Potassium 3.8 (3.6-5.1) mmol/L Chloride 96 (96-114) mmol/L Carbon Dioxide 29 (20-32) mmol/L Anion Gap 11 (7-15) mEq/L BUN 14 (7-30) mg/dL Creatinine 0.8 (0.5-1.5) mg/dL Estimated Creat Clear 43.18 Estimated GFR 81 ml/min Glucose 104 (60-115) mg/dL Calcium 8.9 (8.4-10.6) mg/dL Troponin I < 0.01 (0.01-0.04) ng/mL NT-Pro-B Natriuret Pep 282 (See Note) pg/mL POC Troponin I 0.00 L (0.01-0.04) ng/ml ECG Data Attestation: I personally reviewed and interpreted this ECG as follows: (Normal sinus rhythm. Without ischemic changes. Rate of 73.) Discharge Plan Discharge Clinical Impression: Fall, Near syncope, Contusion Patient Disposition: Home w/ Parent or Adult Condition: Improved Additional Instructions: Consider icing areas that hurt a couple of times daily over the next few days. Stay well-hydrated. Take care in transitions. Was good to see you Prescriptions: No Action montelukast 10 mg tablet 10 mg PO HS loperamide 2 mg capsule 4 mg PO QID PRN divalproex 500 mg tablet,delayed release (DR/EC) 2,000 mg PO DAILY doxepin 10 mg capsule 10 mg PO DAILY dextroamphetamine-amphetamine 10 mg capsule,extended release 24hr 1 cap PO DAILY famotidine 40 mg tablet 40 mg PO HS fluticasone propion-salmeterol 500-50 mcg/dose blister with device 1 inh inhalation BID omeprazole 40 mg capsule,delayed release(DR/EC) 40 mg PO DAILY calcium carbonate-vitamin D3 600 mg-10 mcg (400 unit) tablet 1 tab PO BID metoprolol succinate 25 mg tablet extended release 24 hr 25 mg PO DAILY trazodone 150 mg tablet 75 mg PO HS dextroamphetamine-amphetamine 10 mg tablet 1 tab PO DAILY guanfacine 1 mg tablet 1 mg PO QPM venlafaxine 75 mg Capsule,Extended Release 24hr 300 mg PO DAILY 30 Days Qty: 60 0RF azithromycin 250 mg Tablet 250 mg PO DAILY 1 Days Qty: 1 0RF Taper: Z-STEVEN 250 mg Q24H for 1 Day and 0 Hour prednisone 20 mg Tablet 20 mg PO DAILYWM 3 Days Qty: 3 0RF codeine-guaifenesin 10-100 mg/5 mL Liquid 10 ml PO QID PRN7 Days Qty: 250 0RF guaifenesin [Mucinex] 600 mg Tablet Extended Release 12hr 600 mg PO BID 14 Days Qty: 28 0RF albuterol sulfate 90 mcg/actuation HFA aerosol inhaler 2 puff INHALATION Q4H PRN lorazepam 0.5 mg tablet 0.5 mg PO DAILY PRN cevimeline 30 mg capsule 1 cap PO TID dicyclomine 10 mg capsule 10 mg PO Q6H PRN (Reason: cramps) Follow Up/Referrals: Angi Estevez DO [Primary Care Provider, Family Practice] Stand Alone Forms: MyHealth Info Instructions
[2025-01-26 16:21] LABS: Hematocrit* 34.8 % (33.0-51.0); Hemoglobin* 11.3 gm/dL (12.0-16.0); Immature Granulocytes Abs Auto 0.07 K/uL (0.00-0.30); Immature Granulocytes Pct Auto 1.0 %; Lymphocytes Absolute Auto 2.01 K/uL (0.90-2.90); Mean Corpuscular HGB Conc 33 gm/dL (32-36); Mean Corpuscular Hemoglobin 30 pg (26-34); Mean Corpuscular Volume 92 fL (80-100); RDW Coefficient of Variation % 12.7 % (11.5-15.5); Red Blood Count* 3.79 m/uL (4.00-5.20); White Blood Count* 7.04 K/uL (4.50-11.00)
[2025-01-26 16:24] LABS: Troponin, Point-of-Care* 0.00 ng/ml (0.01-0.04)
--- OUTSIDE RECORDS SUMMARY | 2025-01-26 16:28 | XMS_ITS | CCD ---
Author Organization Unknown Care Team Providers Care Ibm Websphere Commerce Developer Name Role Phone Pitch Worker, [place] Primary Care Provider Unava ilable Unavailable Chronic Care Management Unavaila ble Summary Purpose DataExchange Insurance Providers Payer name Policy type / Coverage type Covered green party ID Effective Begin Date Effective End Date [facility] Commercial Insurance [id number] Unknown Unkn own Family History Family History data not found Medication Administered No Medication Administered data Medical Equipment No Medical Equipment data Assessments No Assessment data Reason For Visit No Reason For Visit data Review of Systems No Review of Systems data Physical Exam No Physical Exam data History of Present Illness No History of Present Illness data Advance Directives No Advance Directive data
[2025-01-26 16:31] LABS: Slide Review Reflex No
[2025-01-26 16:34] LABS: Chloride* 96 mmol/L (96-114); Potassium* 3.8 mmol/L (3.6-5.1)
[2025-01-26 16:37] LABS: Blood Urea Nitrogen* 14 mg/dL (7-30); Calcium* 8.9 mg/dL (8.4-10.6); Carbon Dioxide* 29 mmol/L (20-32); Creatinine* 0.8 mg/dL (0.5-1.5); Est. Creatinine Clearance* 43.18; Estimated Glomerular Filt Rate 81 ml/min; Glucose* 104 mg/dL (60-115)
[2025-01-26 17:02] LABS: Anion Gap 11 mEq/L (7-15); Sodium* 136 mmol/L (135-149)
[2025-01-26 17:04] LABS: NT Pro B Type NatriureticPept* 282 pg/mL (See Note)
--- OUTSIDE RECORDS SUMMARY | 2025-01-26 17:30 | XMS_ITS | CCD ---
Author Organization Unknown Care Team Providers Care Financial Reporting Specialist Name Role Phone Personnel Security Assistant, [place] Primary Care Provider Unava ilable Unavailable Chronic Care Management Unavaila ble Summary Purpose DataExchange Insurance Providers Payer name Policy type / Coverage type Covered libertarian ID Effective Begin Date Effective End Date [facility] Commercial Insurance [id number] Unknown Unkn own Family History Family History [...]
--- OUTSIDE RECORDS SUMMARY | 2025-01-26 17:30 | XMS_ITS | CCD ---
Author Organization Unknown Care Team Providers Care Hearing Aid Consultant Name Role Phone Medical Apparatus Model Maker, [place] Primary Care Provider Unava ilable Unavailable Chronic Care Management Unavaila ble Summary Purpose DataExchange Insurance Providers Payer name Policy type / Coverage type Covered republican ID Effective Begin Date Effective End Date [facility] Commercial Insurance [id number] Unknown Unkn own Family History Family History [...]
== END 2025-01-26 17:53 | disposition home or self-care (01) ==
PROVIDERS: Emergency Provider Family Medicine; PCP Family Medicine
DX: S70.02XA Contusion of left hip, initial encounter (principal); M25.522 Pain in left elbow; R55 Syncope and collapse; G90.A Postural orthostatic tachycardia syndrome [POTS]; W01.0XXA Fall on same level from slipping, tripping and stumbling without subsequent striking against object, initial encounter; Y92.810 Car as the place of occurrence of the external cause
CPT/HCPCS: 36415; 80048; 83880; 84484; 85025; 93005; 96360; 99284; J7030